=== PATIENT | female | born 1950 | race Caucasian/White ===

== ENCOUNTER 2020-01-10 15:02 | Inpatient (IN) | payer MEDICARE, MEDICAID, SELFPAY ==
[2020-01-10] VITALS (19 sets, daily range): BP systolic 118–171; BP diastolic 41–86; PULSE 62–89; RESP 16–31; TEMP 36.4–37.1; O2SAT 100; BMI 30.7
--- NOTE | ~2020-01-10 | XR_ITS ---
EXAMINATION: XR chest port-a-cath/central EXAM DATE: 01/11/2020 14:50 INDICATION: Central line placement. TECHNIQUE: Portable AP frontal chest x-ray was obtained. Comparison is made to prior examination from 01/11/2020. FINDINGS: There is right IJ venous line. Endotracheal tube tip is 4 centimeters above the giovanni (id eal range is between 2 to 5 cm). There is a nasogastric tube seen with tip collimated off the study, but below the left hemidiaphragm. Sternotomy wires are present without findings to suggest sternal d ehiscence. Aortic valve replacement. No confluent consolidation. There are no sizable pleural effusions. There is no pneumothorax suspe cted. Mild cardiomegaly and pulmonary vascular congestion. The bones and soft tissues are unremark able. There is no significant interval change compared to prior exam. IMPRESSION: 1. Line(s) and tube(s) in position. No postprocedure pneumothorax. 2. Mild thyromegaly, pulmonary vascular congestion. Reviewed, dictated and finalized at location B. [place] COUNTY CLERK
--- NOTE | ~2020-01-10 | XR_ITS ---
EXAMINATION: XR chest 1V portable DATE: 01/11/2020 05:46 INDICATION: Respiratory failure TECHNIQUE: frontal view of the chest was obtained. COMPARISON: Chest radiograph dated 01/10/2020 FINDINGS: Endotracheal tube tip 3.4 cm above the giovanni. Nasogastric tube extends below the left hemidiaphragm with distal tip collimated off the study. Unchanged elevation of right hemidiaphragm. Lungs remain clear with no focal airspace opacities, pleu ral effusion, pulmonary edema or pneumothorax. The cardiomediastinal silhouette is normal. Median aura rnotomy wires and mediastinal surgical clips are seen, likely from prior coronary artery bypass graft ing. Aortic valve repair. Mitral annular calcification. IMPRESSION: 1. No acute cardiopulmonary disease. Reviewed, dictated and finalized at location A. E HOLDER
--- NOTE | ~2020-01-10 | XR_ITS ---
EXAMINATION: XR chest 1V portable DATE: 01/13/2020 06:48 INDICATION: Acute respiratory failure. TECHNIQUE: frontal view of the chest was obtained. COMPARISON: Chest radiograph dated 01/12/2020 FINDINGS: Endotracheal tube tip 2.4 cm above the giovanni. Right internal jugular central venous catheter with di stal tip in the midsuperior vena cava. Nasogastric tube with proximal side-port below the left hemid iaphragm with distal tip collimated off the study. Date of hazy airspace opacities at the right lower lung zone consistent with small pleural effusion n o pulmonary edema, pneumothorax or left-sided pleural effusion. Cardiomegaly. Median sternotomy wires , ostial markers and mediastinal surgical clips consistent with prior coronary artery bypass grafting . Aortic valve replacement. IMPRESSION: 1. Small right pleural effusion with right basilar atelectasis versus less likely pneumonia. 2. Cardiomegaly. Reviewed, dictated and finalized at location A. D NEUROLOGIST IMPRESSION: 1. Small right pleural effusion with right basilar atelectasis versus less like ly pneumonia. 2. Cardiomegaly.
--- NOTE | ~2020-01-10 | XR_ITS ---
EXAMINATION: XR chest 1V portable DATE: 01/12/2020 05:40 INDICATION: Acute respiratory failure. TECHNIQUE: A single frontal view of the chest was obtained. COMPARISON: Chest single view 01/11/2020, chest CT 04/01/2017 FINDINGS: There are airspace opacities at right lung base. No pleural effusion or pneumothorax. Cardi omegaly is noted. There are changes of aortic valve replacement. The endotracheal tube tip is 2.3 cm above the giovanni. A right internal jugular central venous catheter is seen with tip in the superior v moo cava. The nasogastric tube tip is beyond the inferior margin of the radiograph, but at least to t he stomach. IMPRESSION: 1. Unchanged airspace opacities at right lung base, consistent with atelectasis or less likely pneumo anjel. 2. Cardiomegaly. Reviewed, dictated and finalized at location A. [employer] IMPRESSION: 1. Unchanged airspace opacities at right lung base, consistent with atelectasis or less likely pneumonia. 2. Cardiomegaly.
--- NOTE | ~2020-01-10 | XR_ITS ---
EXAMINATION: XR chest 1V portable DATE: 01/15/2020 02:31 INDICATION: Pneumonia TECHNIQUE: Acute respiratory failure COMPARISON: Chest radiograph dated 01/14/2020 FINDINGS: Right internal jugular central venous catheter with distal tip in the caudal superior vena cava. Agai n seen is a dependent predominant gradient of hazy airspace opacities in the bilateral mid to lower l nikki zones appears slightly increased on the right. Pulmonary vascular congestion without marshall pulmon larisa edema. No pneumothorax. Cardiomegaly. Median sternotomy wires, ostial markers and mediastinal roni gical clips consistent with prior coronary artery bypass grafting. Aortic valve replacement. IMPRESSION: 1. Bilaterally posteriorly layering pleural effusions, small to moderate and slightly increased on th e right and small on the left. 2. Associated bibasilar atelectasis and/or pneumonia. 3. Cardiomegaly. Reviewed, dictated and finalized at location A. OR CHEMICAL ENGINEER IMPRESSION: 1. Bilaterally posteriorly layering pleural effusions, small to moderate and sl ightly increased on the right and small on the left. 2. Associated bibasilar atelectasis and/or pneumonia. 3. Cardiomegaly.
--- NOTE | ~2020-01-10 | CT_ITS ---
EXAMINATION: CT brain wo con INDICATION: Patient unresponsive COMPARISON: None TECHNIQUE: Standard unenhanced head CT. The dose-length product (DLP) was 605.33 mGy-cm. The mA was a djusted according to patient size. Iterative reconstruction technique was employed. FINDINGS: There is no acute intraparenchymal hemorrhage. No evidence of mass lesion. No evidence of a cute infarction. Encephalomalacia in the right cerebellum is consistent with prior infarction. An old lacunar infarction is noted in the left thalamus. Chronic bilateral insular infarcts are noted. Ther e is mild periventricular and subcortical hypodensity probably related to small vessel ischemic disea se. There is mild prominence of the sulci and ventricles related to cerebral atrophy. Intracranial ca lcified cerebral atherosclerosis is noted. There are no extra-axial collections. There is no mass eff ect or midline shift. Changes in the globes are likely from ocular lens surgery. There is chronic op acification of the paranasal sinuses. IMPRESSION: 1. Areas of prior infarction without acute intracranial abnormality. 2. Age related findings. 3. Chronic sinusitis. Reviewed, dictated and finalized at location A. MBLER WET WASH
--- NOTE | ~2020-01-10 | XR_ITS ---
EXAMINATION: XR abdomen NG/feed tube insert DATE: 01/10/2020 15:36 INDICATION: Orogastric tube placement. TECHNIQUE: A supine view of the abdomen was obtained. COMPARISON: CT abdomen and pelvis 04/01/2017 FINDINGS: There are no dilated loops of bowel. The nasogastric tube tip is in the stomach with proxim al side port at the gastroesophageal junction. IMPRESSION: 1. Nasogastric tube tip in the stomach with proximal side port at the gastroesophageal junction. Adva ncement 3 cm is recommended. Reviewed, dictated and finalized at location A. PER CLICK STRATEGIST IMPRESSION: 1. Nasogastric tube tip in the stomach with proximal side port at the gastroeso phageal junction. Advancement 3 cm is recommended.
--- NOTE | ~2020-01-10 | XR_ITS ---
EXAMINATION: XR chest 2V DATE: 01/18/2020 09:03 INDICATION: Shortness of breath. TECHNIQUE: Frontal and lateral views of the chest were obtained. COMPARISON: Chest single view 01/15/2020 FINDINGS: There are moderate-sized right and small left pleural effusions. There are airspace opaciti es at the lung bases. No pneumothorax. Cardiomegaly is noted. There are changes of heart valve replac ement. A right internal jugular central venous catheter is seen with tip in the superior vena cava. IMPRESSION: 1. Stable moderate-sized right and small left pleural effusions. 2. Stable airspace opacities at the lung bases, likely atelectasis. 3. Cardiomegaly. Reviewed, dictated and finalized at location A. IST ASSISTANT
--- NOTE | ~2020-01-10 | XR_ITS ---
EXAMINATION: XR chest ET placement INDICATION: Respiratory failure TECHNIQUE: Portable AP chest at 1527 hours COMPARISON: 07/10/2019 FINDINGS: An endotracheal tube ends with its tip at the origin of the right mainstem bronchus approxi mately 6 mm from the giovanni. The nasogastric tube is followed as far as the stomach. Its tip is beyon d the inferior margin of the radiograph. The proximal side port is at the gastroesophageal junction. Cardiomegaly is noted. The lungs are free of acute opacities. There is mild chronic elevation of the right hemidiaphragm. Changes of cardiac valve surgery are noted. IMPRESSION: 1. Endotracheal tube approximately 6 cm from the giovanni at the origin of the right mainstem bronchus. 2. Nasogastric tube in the stomach with the proximal side port at the gastroesophageal junction. 3. Cardiomegaly. Reviewed, dictated and finalized at location A. CAST ANALYST IMPRESSION: 1. Endotracheal tube approximately 6 cm from the giovanni at the origin of the ri ght mainstem bronchus. 2. Nasogastric tube in the stomach with the proximal side port at the gastroeso phageal junction. 3. Cardiomegaly.
--- NOTE | ~2020-01-10 | XR_ITS ---
EXAMINATION: XR barium swallow modified EXAM DATE: 01/16/2020 09:51 INDICATION: Recent intubation. Dysphagia. TECHNIQUE: Modified barium esophagram was performed by myself to administered fluoroscopy, in conjun ction with speech pathologist who administered barium in varying consistencies as per speech patholog ist documentation. This was recorded on tape. The DAP for this procedure was 0.9 Gycm2. FINDINGS: Oral stage: Adequate function. Laryngeal penetration: Demonstrated mostly thin liquids. Aspiration: Demonstrated. Laryngeal sensitivity: Present. IMPRESSION: Aspiration demonstrated; Please refer to speech pathologist findings and specific feedin g recommendations. Reviewed, dictated and finalized at location A. ICAL SYSTEMS ANALYST IMPRESSION: Aspiration demonstrated; Please refer to speech pathologist findin gs and specific feeding recommendations.
--- NOTE | ~2020-01-10 | XR_ITS ---
EXAMINATION: XR chest 1V portable DATE: 01/14/2020 07:26 INDICATION: Acute respiratory failure TECHNIQUE: frontal view of the chest was obtained. COMPARISON: Chest radiograph dated 01/13/2020 FINDINGS: Endotracheal tube tip 2.7 cm above the giovanni. Right internal jugular central venous catheter with di stal tip at the caudal superior vena cava. Nasogastric tube extends below the left hemidiaphragm wit h distal tip collimated off the study. Increasing, now bilateral gradients of hazy airspace opacities in the mid to lower lung zones consist ent with enlarging small bilateral posteriorly layering pleural effusions and associated basilar atel ectasis and/or pneumonia. No pneumothorax. Cardiomegaly. Median sternotomy wires, ostial markers and mediastinal surgical clips consistent with prior coronary artery bypass grafting. Aortic valve replac ement. IMPRESSION: 1. Enlarging small bilateral pleural effusions with associated basilar atelectasis and/or pneumonia. 2. Cardiomegaly. Reviewed, dictated and finalized at location A. DENCY PROGRAM COORDINATOR IMPRESSION: 1. Enlarging small bilateral pleural effusions with associated basilar atelecta sis and/or pneumonia. 2. Cardiomegaly.
--- NOTE | 2020-01-10 15:12 | ED.AMS ---
HPI - Altered Mental Status General Chief Complaint: Altered Mental Status Stated Complaint: UNRESPONSIVE Time Seen by Provider: 01/10/20 15:02 Source: family and RN notes reviewed Mode of arrival: wheelchair Limitations: altered mental status History of Present Illness HPI narrative: A 69 y/o female presents to the ED after becoming unresponsive just STEWARD/STEWARDESS NIGHT. Per reports that when he got home the pt was having SOB and was confused, so he was bring the pt in to be evaluated when she became unresponsive on the car ride over. The notes that the pt has NIDDM and has been off of her medication for awhile because she is getting ready for dialysis. complaint: decreased responsiveness (unresponsive) Onset (ago): minute(s) Timing confirmed by: spouse Consistency of symptoms: constant Context: change in medication (has been off of her NIDDM medication) Associated symptoms: shortness of breath and other (confusion) Related Data Home Medications Medication Instructions Recorded Confirmed ascorbic acid (vitamin C) 500 mg mg PO 11/02/19 11/02/19 capsule losartan 25 mg tablet 25 mg PO DAILY 11/02/19 11/02/19 multivitamin 1 cap PO DAILY 11/02/19 11/02/19 tamsulosin 0.4 mg capsule 0.4 mg PO DAILY 11/02/19 11/02/19 Allergies Allergy/AdvReac Type Severity Reaction Status Date / Time Contrast Media Allergy Severe Loss of Uncoded 11/02/19 13:12 Consciousness Review of Systems Review of Systems: Narrative: All information was provided by the . ROS unobtainable: unobtainable due to endotracheal tube, unobtainable due to mental condition and unobtainable due to mental status Respiratory: Respiratory: Reports dyspnea Neurologic: Reports confusion and Reports other (unresponsive) FORMERLY [facility], [facility] Past Medical History Medical History Anemia Arthritis Asthma COPD (chronic obstructive pulmonary disease) CVA (cerebral vascular accident) Diabetes mellitus HLD (hyperlipidemia) HTN (hypertension) Myocardial infarction Pneumonia Shoulder fracture, left TIA (transient ischemic attack) Surgical History Surgical History H/O aortic valve replacement with porcine valve H/O bilateral cataract extraction History of bowel resection Family History Family History Mother Diabetes mellitus Family history of diabetes mellitus in first degree relative Patient's mother is Sibling Family history of cardiovascular disease Family history of liver disease Patient's sister is in good health Family history of heart disease in male family member before age 55 Patient's brother is Diabetes mellitus Acute myocardial infarction Family history of kidney disease Father Family history of cardiovascular disease Family history of heart disease in male family member before age 55 Patient's father is Acute myocardial infarction, Onset Age: 56 Social History Social History Smoking status: Never smoker Alcohol intake: never Comments PCP: Dr. Negro. Exam Narrative: Exam Narrative: GENERAL: Ill-appearing, only responsive to nasal trumpet and chest compression, obese. HEAD: Normocephalic, atraumatic. EYES: PERRL and EOMI. ENT: Mucous membranes moist. CHEST: Agonal breathing with clear lung sounds, requiring bagging. HEART: Regular rate and rhythm. Normal peripheral pulses. ABDOMEN: Soft, nontender, nondistended EXTREMITIES: Normal range of motion. No edema. Right upper extremity dialysis shunt. SKIN: Warm, dry, no rash. NEURO: GCS 8, E2 V1 M5. No focal paralysis. Course Consultations Consultation #1: Discussed case with Dr. Mcguire (Machining And Assembly Supervisor). Accepts the pt to the ICU. Request Vanc, Zosyn, and a head CT. Family reports patient did not receive the flu shot. Date: 01/10/20 Time: 16:37 Cons
--- NOTE | 2020-01-10 15:30 | PC.NURSE ---
[place] placed per order from Dr Hansen, 16FR.
[2020-01-10 15:35] LABS: Basophils Absolute Auto 0.1 K/mm3 (0.0-0.1); Basophils Percent Auto 0.6 % (0.2-1.2); Eosinophils Absolute Auto 0.9 K/mm3 (0-0.3); Eosinophils Percent Auto 5.3 % (0-4.4); Hematocrit 31.9 % (37.0-47.0); Hemoglobin 9.5 g/dL (12.0-15.0); Immature Granulocyte Absolute 0.27 K/mm3 (0.00-0.031); Immature Granulocyte Percent A 1.6 % (0-0.5); Lymphocytes Absolute Auto 5.29 K/mm3 (0.9-3.2); Lymphocytes Percent Auto 31.1 % (18.3-44.2); Mean Corpuscular HGB Conc 29.8 g/dl (32-36); Mean Corpuscular Hemoglobin 29.3 pg (26-34); Mean Corpuscular Volume 98.5 fl (80-100); Mean Platelet Volume 11.4 fl (7.4-10.4); Monocytes Absolute Auto 0.8 K/mm3 (0.1-0.6); Monocytes Percent Auto 4.4 % (2.6-8.5); Neutrophils Absolute Auto 9.7 K/mm3 (1.3-6.7); Platelet Count Result 286 k/mm3 (150-375); Red Blood Count 3.24 M/mm3 (4.2-5.4); Red Cell Distribution Width 14.8 % (11.5-14.5)
[2020-01-10 15:42] LABS: Alveolar/Arterial O2 Gradient 99.7 mmHg; Base Excess ABG -13.1 mEq/l (+/-2.0); Fractional Inspired Oxygen 50 %; HCO3 ABG 15.1 mEq/l (22.0-26.0); Oxygen Content ABG 13.9 %vol (16.0-22.0); Oxygen Saturation ABG 99.1 % (95.0-100.0); Oxyhemoglobin 96.5 % THb (90.0-100.0); PO2 ABG 207.3 mmHg (80.0-100.0); PO2 FiO2 Ratio Arterial Blood 4.15 %; Total Hemoglobin 9.9 g/dL (12.0-18.0)
[2020-01-10 15:43] LABS: Hypochromasia 1+ (NORMAL); Ovalocytes 1+ (NORMAL); Platelet Estimate Adequate (Adequate)
[2020-01-10 15:44] LABS: Device VENTILATOR; Site Drawn LEFT BRACHIAL; pH ABG 7.152 (7.350-7.450)
[2020-01-10 15:45] LABS: Arterial Blood Gas Vent Mode CMV; Arterial Blood Gas Ventilator rate 16 /MIN
[2020-01-10 15:45] LABS: Prothrombin Time 13.3 Seconds (11.1-14.7)
[2020-01-10 15:46] LABS: Lactic Acid Reflex 3.6 mmol/L (0.7-2.1); Partial Thromboplastin Time 25.8 SECONDS (22.3-36.8)
[2020-01-10 15:46] LABS: Arterial Blood Gas PEEP 8 cmH2O; Arterial Blood Gas Pressure Support 0 cmH2O; Arterial Blood Gas Tidal Volume 400 ml
--- NOTE | 2020-01-10 15:46 | PC.NURSE ---
1511: NS initiated at 999ml/hr 1513: 30 Etomidate and 100 Succ given per verbal order from Dr Hansen 1516: Respiratory suctioning patient, patient vomiting 1517: Patient intubated 7.5 tube, 25 at the lip, positive bilat breath sounds and CO2 detector color change 1520: OG placed at 55 at the lip, suction continued, brown fluid 1537: 25mcg fentanyl and 2mg versed given per verbal order from Dr Hansen, patient gagging on tube
[2020-01-10 15:48] LABS: Alanine Aminotransferase 22 U/L (4-35); Albumin Level 4.2 g/dL (3.5-5.1); Alkaline Phosphatase 159 U/L (38-126); Aspartate Amino Transferase 26 U/L (14-36); Bilirubin,Total 0.4 mg/dL (0.2-1.3); Blood Urea Nitrogen 68 mg/dL (7-17); Calcium 8.2 mg/dL (8.4-10.2); Carbon Dioxide 14 mmol/L (22-30); Chloride 110 mmol/L (98-107); Estimated CRCL calculation 12 ml/min; Estimated Glomerular Filt Rate 11; Glucose 266 mg/dL (65-105); Sodium 141 mmol/L (137-145)
[2020-01-10 16:00] LABS: Troponin I 0.017 ng/mL (0.000-0.034)
[2020-01-10] MEDS: MIDAZOLAM HCL 50 MG in DEXTROSE 5% 90 ML IV CONT ×2 (16:00→19:00)
[2020-01-10 16:14] LABS: Add Urine Microscopic? YES; Appearance Urine Clear (Clear); Bilirubin Urine Negative (Negative); Blood Urine 1+ (Negative); Color Urine Yellow (Yellow); Glucose Urine UA 1+ mg/dL (Negative); Ketones Urine Negative (Negative); Leukocyte Esterase Ur Trace LEU/UL (Negative); Mucus Urine Rare /lpf; Nitrate Urine Negative (Negative); Protein Urine Negative (Negative); Specific Grav Ur 1.012 (1.001-1.035); Squamous Epithelial Cell Urine Rare /hpf (Few); Urobilinogen Urine Negative mg/dL (<2.0)
[2020-01-10] MEDS: SODIUM CHLORIDE 0.9% IV 1,000 ML 999 ML IV CONT (16:32)
--- NOTE | 2020-01-10 16:40 | PC.NURSE ---
Patient given medications per verbal order from Dr Hansen prior to CT. Patient transported with Respiratory and RN.
[2020-01-10] MEDS: MIDAZOLAM HCL 2 MG/2 ML VIAL (16:44)
[2020-01-10 18:33] LABS: Reflex Lactic Acid Yes or No Add Lactic
[2020-01-10] MEDS: SODIUM CHLORIDE 0.9% IV 1,000 ML 125 ML IV CONT (18:50)
--- NOTE | 2020-01-10 18:56 | PM.IMHP ---
H&P: HPI History of Present Illness Chief complaint: Respiratory failure/Influenza/CKD Narrative: Date and Time of Service of History & Physical: January 10, 2020 at 6:40 p.m.. Date and Time of Admission Order: January 10, 2020 at 4:51 p.m. Chief Complaint: Shortness of breath, unresponsive. History of Present Illness: Martha Reid is a 69 year old female with diabetes, chronic kidney disease in process of moving towards hemodialysis, hypertension, coronary disease, hyperlipidemia, COPD and history of CVA who presented to the emergency room. Patient is intubated with no family present. She is able to answer some simple yes/no questions. Additional information from electronic record. Patient reports she was feeling short of breath with cough today. No fever. No chest pain. Per record, noted patient to be short of breath and confused when he arrived home. He was bringing patient in to be evaluated when she became unresponsive on the car ride over. Patient recently has been taken off diabetic medication in process of getting ready for dialysis. Due to unresponsiveness, christiana najera was called. Per emergency room physician, patient received 1 chest compression and grabbed person performing CPR. She was unable to speak. Due to her respiratory status, she was intubated in the emergency room. Influenza screen positive. She is now admitted to the intensive care unit for further evaluation and treatment. Review of Systems Review of Systems: Narrative: Limited due to intubation. Constitutional: Constitutional: Denies fever(s) Cardiovascular: Cardiovascular: Denies chest pain Respiratory: Respiratory: Reports cough and Reports dyspnea Gastrointestinal: Gastrointestinal: Denies abdominal pain PMF Past Medical History Medical History (Updated 01/10/20 @ 19:21 by Leonor Jha MD) Anemia Arthritis Asthma COPD (chronic obstructive pulmonary disease) CVA (cerebral vascular accident) Diabetes mellitus HLD (hyperlipidemia) HTN (hypertension) Myocardial infarction Pneumonia Shoulder fracture, left Surgically constructed arteriovenous fistula TIA (transient ischemic attack) Surgical History Surgical History H/O aortic valve replacement with porcine valve H/O bilateral cataract extraction History of bowel resection Family History Family History Mother Diabetes mellitus Family history of diabetes mellitus in first degree relative Patient's mother is Sibling Family history of cardiovascular disease Family history of liver disease Patient's sister is in good health Family history of heart disease in male family member before age 55 Patient's brother is Diabetes mellitus Acute myocardial infarction Family history of kidney disease Father Family history of cardiovascular disease Family history of heart disease in male family member before age 55 Patient's father is Acute myocardial infarction, Onset Age: 56 Social History Social History Social History: Limited information available due to her condition. Patient is full code. She is . Smoking status: Never smoker Alcohol intake: never Living arrangements: with family Meds Home Medications and Allergies Home Medications Medication Instructions Recorded Confirmed Type atorvastatin 20 mg tablet 20 mg PO DAILY #90 tablet 10/03/19 11/02/19 Rx mometasone-formoterol HFA 100 2 puff INHALATION Q12H #8.8 gm 10/03/19 11/02/19 Rx mcg-5 mcg/actuation aerosol inhaler furosemide 40 mg tablet 40 mg PO QAM #90 tablet 10/20/19 11/02/19 Rx carvedilol 12.5 mg tablet 12.5 mg PO Q12H #180 tablet 10/24/19 11/02/19 Rx trazodone 50 mg tablet 50 mg PO .AT HS #90 tablet 10/24/19 11/02/19 Rx ascorbic acid (vitamin C) 500
[2020-01-10 19:10] LABS: Lactic Acid 1.6 mmol/L (0.7-2.1)
--- NOTE | 2020-01-10 19:52 | ADMGEN ---
This patient, Martha Reid, was admitted to Intensive Care Unit-2. Patient/family oriented to hospital policies and general routines including ID bracelet, bed and alarms, visiting hours, pain management, procedures, bathroom and other care routines, personal items, smoking policy, room service/diet, and visiting hours. Valuables list has been completed. Information on how to activate the Rapid Response Team has been discussed. Patient/Family are encouraged to report perceived risks to care and to ask questions if they do not understand what they are told or what they should do.
[2020-01-10] MEDS: HEPARIN SODIUM 5,000 UNITS/ML VIAL 5000 UNITS SUB-Q (20:17)
[2020-01-10] MEDS: PANTOPRAZOLE SODIUM IV 40 MG VIAL IV PUSH (20:17)
[2020-01-10] MEDS: ALBUTEROL SULFATE NEB 2.5 MG/0.5 ML INH 5 MG INHALATION (20:22)
[2020-01-10] MEDS: IPRATROPIUM BR 0.02% INH SOLN 0.5 MG/2.5 ML VIAL INHALATION (20:22)
[2020-01-11] VITALS (27 sets, daily range): BP systolic 83–113; BP diastolic 39–99; PULSE 61–81; RESP 14–18; TEMP 36.6–37.4; O2SAT 97–100; BMI 32.8
[2020-01-11] MEDS: SODIUM CHLORIDE 0.9% IV 1,000 ML 125 ML IV CONT ×2 (02:08→08:15)
[2020-01-11] MEDS: IPRATROPIUM BR 0.02% INH SOLN 0.5 MG/2.5 ML VIAL INHALATION ×4 (02:08→21:17)
[2020-01-11] MEDS: ALBUTEROL SULFATE NEB 2.5 MG/0.5 ML INH 5 MG INHALATION ×4 (02:08→21:16)
[2020-01-11 04:29] LABS: Alveolar/Arterial O2 Gradient 97.9 mmHg; Base Excess ABG -11.3 mEq/l (+/-2.0); Carboxyhemoglobin 0.3 % THb (0-2.0); Fractional Inspired Oxygen 40 %; HCO3 ABG 14.3 mEq/l (22.0-26.0); Oxygen Content ABG 11.5 %vol (16.0-22.0); Oxygen Saturation ABG 98.7 % (95.0-100.0); Oxyhemoglobin 96.6 % THb (90.0-100.0); PCO2 ABG 31.2 mmHg (35.0-45.0); PO2 ABG 151.4 mmHg (80.0-100.0); PO2 FiO2 Ratio Arterial Blood 3.78 %; Reduced Hemoglobin 3.1 %THb (0-5.0); Total Hemoglobin 8.2 g/dL (12.0-18.0)
[2020-01-11 04:35] LABS: Device VENTILATOR; Site Drawn LEFT BRACHIAL
[2020-01-11 04:36] LABS: Arterial Blood Gas PEEP 8 cmH2O; Arterial Blood Gas Tidal Volume 400 ml; Arterial Blood Gas Vent Mode CMV; Arterial Blood Gas Ventilator rate 16 /MIN
[2020-01-11 05:00] LABS: Basophils Absolute Auto 0.1 K/mm3 (0.0-0.1); Basophils Percent Auto 0.7 % (0.2-1.2); Eosinophils Absolute Auto 0.7 K/mm3 (0-0.3); Eosinophils Percent Auto 6.2 % (0-4.4); Hematocrit 27.2 % (37.0-47.0); Hemoglobin 8.2 g/dL (12.0-15.0); Immature Granulocyte Absolute 0.03 K/mm3 (0.00-0.031); Immature Granulocyte Percent A 0.3 % (0-0.5); Lymphocytes Absolute Auto 1.95 K/mm3 (0.9-3.2); Lymphocytes Percent Auto 17.2 % (18.3-44.2); Mean Corpuscular HGB Conc 30.1 g/dl (32-36); Mean Corpuscular Hemoglobin 29.3 pg (26-34); Mean Corpuscular Volume 97.1 fl (80-100); Mean Platelet Volume 11.1 fl (7.4-10.4); Monocytes Absolute Auto 0.8 K/mm3 (0.1-0.6); Neutrophils Absolute Auto 7.8 K/mm3 (1.3-6.7); Neutrophils Percent Auto 68.6 % (45.5-73.1); Platelet Count Result 217 k/mm3 (150-375); Red Cell Distribution Width 14.7 % (11.5-14.5); White Blood Count 11.3 K/mm3 (4.5-10.0)
[2020-01-11 05:24] LABS: Alanine Aminotransferase 19 U/L (4-35); Alkaline Phosphatase 114 U/L (38-126); Aspartate Amino Transferase 20 U/L (14-36); Bilirubin,Total 0.4 mg/dL (0.2-1.3); Blood Urea Nitrogen 60 mg/dL (7-17); Calcium 7.3 mg/dL (8.4-10.2); Carbon Dioxide 16 mmol/L (22-30); Chloride 116 mmol/L (98-107); Estimated CRCL calculation 13 ml/min; Estimated Glomerular Filt Rate 12; Glucose 51 mg/dL (65-105); Magnesium 1.3 mg/dL (1.6-2.3); Potassium 3.6 mmol/L (3.4-5.0); Sodium 144 mmol/L (137-145)
[2020-01-11 05:25] LABS: Hemoglobin A1C 6.2 % (<5.7)
[2020-01-11 05:30] LABS: Glucose Point of Care 49 (65-105)
[2020-01-11] MEDS: DEXTROSE 50% 25 GM/50 ML SYRINGE IV PUSH (05:33)
[2020-01-11 06:04] LABS: Glucose Point of Care 148 (65-105)
[2020-01-11 08:09] LABS: Glucose Point of Care 225 (65-105)
[2020-01-11] MEDS: HEPARIN SODIUM 5,000 UNITS/ML VIAL 5000 UNITS SUB-Q ×2 (08:10→19:53)
[2020-01-11] MEDS: PANTOPRAZOLE SODIUM IV 40 MG VIAL IV PUSH (08:11)
[2020-01-11] MEDS: MIDAZOLAM HCL 50 MG in DEXTROSE 5% 90 ML IV CONT (08:19)
[2020-01-11 08:31] LABS: Glucose Point of Care 87 (65-105)
--- NOTE | 2020-01-11 08:47 | PM.IMPN ---
Progress Note: A&P Assessment and Plan (1) Acute respiratory failure: Qualifiers: Respiratory failure complication: hypoxia Qualified Code(s): J96.01 - Acute respiratory failure with hypoxia Code(s): J96.00 - Acute respiratory failure, unspecified whether with hypoxia or hypercapnia Status: Acute Assessment and Plan: Chest x-ray with no acute opacities. Result of influenza A. Remains sedated on ventilator. Ventilator management box press operator. Continue nebulizer treatments and IV antibiotics. Continue to monitor. (2) Severe sepsis: Code(s): A41.9 - Sepsis, unspecified organism; R65.20 - Severe sepsis without septic shock Status: Acute Assessment and Plan: Criteria met on admission. Blood cultures negative thus far. Urine culture and MRSA culture pending. Antibiotics adjusted to IV cefepime and vancomycin. Blood pressure reviewed on 01/11/2020 and presently stable. Continue IV fluids. Will monitor. (3) Influenza A: Code(s): J10.1 - Influenza due to other identified influenza virus with other respiratory manifestations Status: Acute Assessment and Plan: Positive screen in the emergency room. Will continue Tamiflu to complete 5 days treatment. (4) Diabetes mellitus with ESRD (end-stage renal disease): Code(s): E11.22 - Type 2 diabetes mellitus with diabetic chronic kidney disease; N18.6 - End stage renal disease Status: Acute Assessment and Plan: Hemoglobin A1c 7.3 in February 2019. New hemoglobin A1c 6.2. Did have lower glucose this morning. Home oral medications on hold. Sliding scale insulin is available if needed. Will check new hemoglobin A1c while here. Hold home oral medications. Sliding scale insulin available as needed. IV fluids with sodium bicarb in dextrose. Will continue to monitor. (5) Hypomagnesemia: Code(s): E83.42 - Hypomagnesemia Status: Acute Assessment and Plan: Magnesium 1.3 today with IV replacement given. Will continue to monitor and replace as needed. (6) CKD (chronic kidney disease), stage V: Code(s): N18.5 - Chronic kidney disease, stage 5 Status: Acute Assessment and Plan: Creatinine 4.20. AV fistula maturing in right arm with plan for hemodialysis. Nephrology consulted from the emergency room and appreciate input. Creatinine better at 3.80 today. Will monitor. (7) Essential hypertension: Code(s): I10 - Essential (primary) hypertension Status: Acute Assessment and Plan: Blood pressure reviewed on 01/11/2020 and now stable. Will continue ofelia hold furosemide, Coreg and losartan. Will monitor. (8) Chronic GERD: Code(s): K21.9 - Gastro-esophageal reflux disease without esophagitis Status: Acute Assessment and Plan: Will give IV Protonix. (9) Chronic systolic heart failure: Code(s): I50.22 - Chronic systolic (congestive) heart failure Status: Acute Assessment and Plan: Will continue to hold Lasix, Coreg and llosartan. Will monitor. (10) Coronary artery disease involving [place] coronary artery of [place] heart: Qualifiers: Associated angina: without angina Qualified Code(s): I25.10 - Atherosclerotic heart disease of [place] coronary artery without angina pectoris Code(s): I25.10 - Atherosclerotic heart disease of [place] coronary artery without angina pectoris Status: Acute Assessment and Plan: No acute issue. Will hold atorvastatin, Coreg. Will monitor. (11) DVT prophylaxis: Code(s): Z29.9 - Encounter for prophylactic measures, unspecified Status: Acute Assessment and Plan: Heparin subcutaneously. Time Spent With Patient Time with patient: 15 - 25 minutes Subjective Date/time seen: 01/11/20 08:47 Interval history: Date of Service: 01/11/2020. Admitted with acute respiratory failure, severe sepsis, influenza A. Remains sedated on venilator but opens eye
--- NOTE | 2020-01-11 09:43 | WPDCNINT ---
Assessment and Plan Assessment and plan (1) Acute respiratory failure: Qualifiers: Respiratory failure complication: hypoxia Qualified Code(s): J96.01 - Acute respiratory failure with hypoxia Code(s): J96.00 - Acute respiratory failure, unspecified whether with hypoxia or hypercapnia Status: Acute Assessment and Plan: patient presented with acute respiratory failure: possible COPD exacerbation which could have been brought on by influenza A. - chest x-ray otherwise is clear - continue bronchodilators, no wheezing noted, hold steroids for now - continue cefepime and vancomycin, will deescalate if blood cultures are negative (2) Severe sepsis: Code(s): A41.9 - Sepsis, unspecified organism; R65.20 - Severe sepsis without septic shock Status: Acute Assessment and Plan: source unknown - continue antibiotics as above - cultures have been obtained and pending - will give a bolus of IV fluids - started patient on infusion (3) Influenza A: Code(s): J10.1 - Influenza due to other identified influenza virus with other respiratory manifestations Status: Acute Assessment and Plan: patient with positive influenza A, started patient on Tamiflu (4) Diabetes mellitus with ESRD (end-stage renal disease): Code(s): E11.22 - Type 2 diabetes mellitus with diabetic chronic kidney disease; N18.6 - End stage renal disease Status: Acute Assessment and Plan: blood sugars have been stable, continue sliding scale and Accu-Cheks - Hemoglobin A1c 7.3 in February 2019. Will check new hemoglobin A1c (5) CKD (chronic kidney disease), stage V: Code(s): N18.5 - Chronic kidney disease, stage 5 Status: Acute Assessment and Plan: patient has an AV fistula in the right arm which is maturing. - Nephrology has been consulted, await their input (6) Chronic GERD: Code(s): K21.9 - Gastro-esophageal reflux disease without esophagitis Status: Acute Assessment and Plan: continue IV PPI (7) DVT prophylaxis: Code(s): Z29.9 - Encounter for prophylactic measures, unspecified Status: Acute Assessment and Plan: heparin subcu Additional Plan discussed with patient's and updated him with her condition and plan of care. I answered all questions. Code status: Full code Critical care time spent: 39 minutes Due to a high probability of clinically significant, life threatening deterioration, the patient required my highest level of preparedness to intervene emergently and I personally spent this critical care time directly and personally managing the patient. This critical care time included obtaining a history; examining the patient; pulse oximetry; ordering and review of studies; arranging urgent treatment with development of a management plan; evaluation of patient's response to treatment; frequent reassessment; and discussions with other providers. It was exclusive of separately billable procedures and treating other patients and teaching time. Please see Assessment and Plan section and the rest of the note for further information on patient assessment and treatment Enrichment Assistant Consult Note Consult date: 2 Time Seen: 06:12 Reason for consult: Acute respiratory failure, [place], Influenza A HPI: Martha Reid is a 69 year old female with PMH of anemia, asthma, COPD, CVA, HLD, DM, essential HTN, PA, CKD presented to the ED with SOB, confusion and became unresponsiveness in the car and had a brief cardiac arrest in the ED requiring compressions and after 1-2 compressons pt woke up and held the compressors hand. Pt was intubated on 01/10/2020 in the ED. Pt was tested positive for influenza A. Pt did not take her flu shot this year. Elevated WBC, elevated creatinine. Pt was started on Abx and transferred to ICU for further management Pt seen and examined this morning. Remains intubated on CMV 40% FiO2. sedated with Fe
--- NOTE | 2020-01-11 11:46 | PCDIET ---
ICU Rounding Note: Pt current nutrition is NPO. Nutrition recommendation: Osmolite 1.0 goal rate of 72 ml/hour w/ 90 ml FWF Q6H. Initiate at 35 ml/hour for 4-6 hours and increase rate by 10 mL Q4H as tolerated. TF to provide 1679 kcals and 70 g protein to meet 100% of pt needs. Last recorded weight is 84.1 kg. Bowel Motility:BS+ Labs Reviewed: PO4 5.0, mg 1.3, A1C 6.2, Glucose 266-51, BUN 60, Cr 3.8 GFR 12 Meds Noted:Novolog, Na bicarab, Protonix Additional Notes: Pt intubated, alert and able to follow commands. Will initiate TF, potentially extubating tomorrow. Following daily in ICU rounds. Assessing/reassessing Wednesday/Wednesday, daily in ICU rounds.
[2020-01-11] MEDS: SODIUM BICARBONATE 8.4% 150 MEQ in DEXTROSE 5% 1,000 ML 950 ML 75 MEQ IV CONT (12:30)
[2020-01-11] MEDS: MAGNESIUM SULF 2 GM/WATER 50ML 2 GM/50 ML BAG IVPB (13:34)
--- NOTE | 2020-01-11 14:33 | WPDPROCEDUR ---
Procedures Central Line Placement: Right IJ: Discussed w/ patient and/or surrogate, the non-emergent placement of a central venous catheter, including its clinical necessity/indication & associated potential risks & complications.: Yes The patient and/or surrogate understand(s) and acknowledge(s) the need to proceed with central venous catheter insertion as an important element of the patient's clinical management.: Yes Emergently Placed - (Given emergent patient conditions, temporal constraints may not have permitted and aforementioned informed consent.): No Central Line Date: 01/11/20 Central Line Time: 14:18 Pre-procedural Time-Out was completed immediately before starting the procedure and confirmed: Patient Identification, Site, Procedure, Patient Position and the Availability of Requisite Equipment.: Yes Patient Position: supine Patient placed on monitor/pulse ox: Yes Provider Prep: mask, sterile gown, sterile gloves, Max. sterile barrier precautions and cap Central line prep: Chlorhexidine scrub and sterile full body sheet applied Local anesthesia used: lidocaine 1% Amount of anesthesia used (ml): 4 Ultrasound used for placement: Yes Central line lumen inserted: triple [place]: 16 Length (cm): 16 Depth of Insertion (cm): 16 Post procedure: sutured in place, good blood return, all ports aspirated, flushed, capped, tegaderm, hemostatic disc, antimicrobial disc and aseptic technique maintained throughout procedure Post procedure x-ray: tip of catheter in good position and no pneumothorax seen Patient tolerated procedure: well Complications: none
[2020-01-11] MEDS: OSELTAMIVIR PHOSPHATE ORAL SUSP 30 MG/5 ML SYRINGE PO (15:47)
[2020-01-11] MEDS: hetaSTARCH 6%/NACL 500 ML 250 ML IV CONT (15:47)
--- NOTE | 2020-01-11 17:42 | PM.CNNEP ---
Assessment and Plan Assessment and plan (1) CKD (chronic kidney disease), stage V: Code(s): N18.5 - Chronic kidney disease, stage 5 Status: Acute (2) Severe sepsis: Code(s): A41.9 - Sepsis, unspecified organism; R65.20 - Severe sepsis without septic shock Status: Acute (3) Acute respiratory failure: Qualifiers: Respiratory failure complication: hypoxia Qualified Code(s): J96.01 - Acute respiratory failure with hypoxia Code(s): J96.00 - Acute respiratory failure, unspecified whether with hypoxia or hypercapnia Status: Acute (4) Essential hypertension: Code(s): I10 - Essential (primary) hypertension Status: Acute (5) Diabetes: Code(s): E11.9 - Type 2 diabetes mellitus without complications Status: Acute Assessment and Plan: . Additional Plan Martha has chronic kidney disease stage 5 but is not currently on dialysis. Unfortunately, she currently has acute respiratory failure precipitated by a brief cardiac arrest as already noted. There is a possibility that this insult may have pushed her kidneys to the point of requiring renal replacement therapy /dialysis sooner than later. Currently, despite her advanced kidney disease, she has no critical electrolyte abnormalities although she does have a metabolic acidosis but as far as I am aware, no symptoms of uremia. However given her recent diagnosis of than for an is a, I would not be surprised if this put she has her kidneys harder than not and she may require renal replacement therapy / dialysis on this hospitalization. As already mentioned, she does have a right upper arm access in place that appears to be still functional so theoretically we could use this for renal replacement therapy /dialysis if it if things deteriorate to the point of needing dialysis as already mentioned above. I will continue follow patient with you while she remains hospitalized to make further recommendations during hospital course Thank you for allowing me to participte iin the care this patient. History of Present Illness Reason for Consult Consult date: 01/11/20 Reason for consult: chronic renal failure Chief Complaint Chief complaint: Respiratory failure/Influenza/CKD History of Present Illness Narrative: All of the information I obtained is from review of the electronic medical record as the patient is unable to provide me with any history as she is currently intubated and sedated. The patient is 69 year old female with an extensive past medical history as outlined below who presented to the [facility] ED with shortness of breath and confusion. Apparently, she became unresponsive and had a cardiac arrest in the ER requiring compressions. However, after 1 - 2 compression, the patient woke up pt woke up; she was intubated and placed on mechanical ventilation. Further evaluation in the ER demonstrated patient to be positive for influenza A. She was also noted to have an elevated WBC as well. Given the concern for sepsis, she was started on IV antibiotics after appropriate cultures were obtained and transferred to ICU for further management Renal consultation was requested due to her advanced chronic kidney disease. The patient is well known to me as I follow her in clinic for CKD management. She has fairly advanced kidney disease secondary diabetic nephropathy. In anticipation of her of ventral need for renal replacement therapy /dialysis, she was referred for education regarding her dialysis options and side to pursue hemodialysis if and when that time would be need for renal replacement therapy. In anticipation of this, I referred her to surgery for access placement and she had a right upper arm graft placed several months ago. However, since clinically she was stable, had no critical electrolyte abnormalities, no symptoms of uremia, and otherwise felt reasonably well I decided to hold dialysis at this ti
[2020-01-11 23:48] LABS: Glucose Point of Care 83 (65-105)
[2020-01-12] VITALS (29 sets, daily range): BP systolic 107–147; BP diastolic 45–54; PULSE 65–98; RESP 10–21; TEMP 36.6–37.6; O2SAT 95–100; BMI 31.8
[2020-01-12] MEDS: NOREPINEPHRINE 8 MG/D5W 250 ML 8 MG/250 ML BAG 7.5 MG IV CONT (00:57)
[2020-01-12] MEDS: IPRATROPIUM BR 0.02% INH SOLN 0.5 MG/2.5 ML VIAL INHALATION ×4 (02:24→20:42)
[2020-01-12] MEDS: ALBUTEROL SULFATE NEB 2.5 MG/0.5 ML INH 5 MG INHALATION ×4 (02:24→20:42)
[2020-01-12 04:44] LABS: Alveolar/Arterial O2 Gradient 88.4 mmHg; Base Excess ABG -6.7 mEq/l (+/-2.0); Carboxyhemoglobin 0.3 % THb (0-2.0); Fractional Inspired Oxygen 30 %; HCO3 ABG 17.2 mEq/l (22.0-26.0); Methemoglobin ABG 0.3 %THb (0-1.5); Oxygen Content ABG 13.5 %vol (16.0-22.0); Oxygen Saturation ABG 97.1 % (95.0-100.0); PO2 ABG 91.4 mmHg (80.0-100.0); PO2 FiO2 Ratio Arterial Blood 3.05 %; Reduced Hemoglobin 4.4 %THb (0-5.0); pH ABG 7.392 (7.350-7.450)
[2020-01-12 04:45] LABS: Device VENTILATOR; Modified Allen's Test Pass; Site Drawn LEFT RADIAL
[2020-01-12 04:46] LABS: Arterial Blood Gas PEEP 8 cmH2O; Arterial Blood Gas Tidal Volume 400 ml; Arterial Blood Gas Vent Mode CMV; Arterial Blood Gas Ventilator rate 18 /MIN
[2020-01-12 04:55] LABS: Basophils Absolute Auto 0.1 K/mm3 (0.0-0.1); Basophils Percent Auto 0.7 % (0.2-1.2); Eosinophils Percent Auto 7.2 % (0-4.4); Hematocrit 25.3 % (37.0-47.0); Hemoglobin 7.7 g/dL (12.0-15.0); Immature Granulocyte Absolute 0.05 K/mm3 (0.00-0.031); Immature Granulocyte Percent A 0.4 % (0-0.5); Lymphocytes Absolute Auto 2.24 K/mm3 (0.9-3.2); Lymphocytes Percent Auto 16.7 % (18.3-44.2); Mean Corpuscular HGB Conc 30.4 g/dl (32-36); Mean Corpuscular Hemoglobin 28.9 pg (26-34); Mean Corpuscular Volume 95.1 fl (80-100); Mean Platelet Volume 11.6 fl (7.4-10.4); Monocytes Absolute Auto 0.8 K/mm3 (0.1-0.6); Monocytes Percent Auto 6.2 % (2.6-8.5); Neutrophils Absolute Auto 9.2 K/mm3 (1.3-6.7); Neutrophils Percent Auto 68.8 % (45.5-73.1); Platelet Count Result 208 k/mm3 (150-375); Red Blood Count 2.66 M/mm3 (4.2-5.4); Red Cell Distribution Width 15.1 % (11.5-14.5); White Blood Count 13.4 K/mm3 (4.5-10.0)
[2020-01-12 05:16] LABS: Lactic Acid 0.7 mmol/L (0.7-2.1)
[2020-01-12 05:30] LABS: Alanine Aminotransferase 15 U/L (4-35); Albumin Level 2.8 g/dL (3.5-5.1); Alkaline Phosphatase 133 U/L (38-126); Aspartate Amino Transferase 17 U/L (14-36); Bilirubin,Total 0.5 mg/dL (0.2-1.3); Blood Urea Nitrogen 49 mg/dL (7-17); Calcium 7.5 mg/dL (8.4-10.2); Carbon Dioxide 17 mmol/L (22-30); Chloride 111 mmol/L (98-107); Estimated CRCL calculation 13 ml/min; Estimated Glomerular Filt Rate 12; Glucose 138 mg/dL (65-105); Magnesium 1.7 mg/dL (1.6-2.3); Potassium 3.2 mmol/L (3.4-5.0); Sodium 143 mmol/L (137-145)
--- NOTE | 2020-01-12 06:34 | ECG_ITS ---
Measurements Intervals [place] Rate: 66 P: 57 WA: 196 QRS: 61 QRSD: 181 T: 33 QT: 475 QTc: 498 Interpretive Statements SINUS RHYTHM WITH MARKED RHYTHM IRREGULARITY, POSSIBLE NON-CONDUCTED PAC, SA BLOCK, AV BLOCK, OR SINUS PAUSE LEFT BUNDLE BRANCH BLOCK BASELINE ARTIFACT- I, II, AVR, AVL, AVF ABNORMAL ECG Electronically Signed On 01-12-2020 10:13:44 VIRTUAL OFFICE ASSISTANT by Simon Malave D.O.
--- NOTE | 2020-01-12 08:14 | PM.IMPN ---
Progress Note: A&P Assessment and Plan (1) Septic shock: Code(s): A41.9 - Sepsis, unspecified organism; R65.21 - Severe sepsis with septic shock Status: Acute Assessment and Plan: Initially met criteria for severe sepsis on admission. Unfortunately, patient with hypotension on 01/11/2020 requiring placement of central line and starting of Levophed. Now with septic shock criteria met. Blood pressure reviewed on 01/12/2020 and presently stable. Appreciate help from investigation officer. Blood cultures negative thus far. Urine culture negative. MRSA culture negative. Remains on IV cefepime and vancomycin. Also on IV sodium bicarb. Will continue to monitor closely. (2) Acute respiratory failure: Qualifiers: Respiratory failure complication: hypoxia Qualified Code(s): J96.01 - Acute respiratory failure with hypoxia Code(s): J96.00 - Acute respiratory failure, unspecified whether with hypoxia or hypercapnia Status: Acute Assessment and Plan: Result of influenza A. Remains sedated on ventilator. Ventilator management investigation officer. Continue nebulizer treatments and IV antibiotics. Continue to monitor. (3) Second degree AV block, Mobitz type II: Code(s): I44.1 - Atrioventricular block, second degree Status: Acute Assessment and Plan: Discussed with in investigation officer. Patient noted to have second-degree AV block on to . Cardiology consulted and appreciate input. Echocardiogram ordered to assess LV function and status of bioprosthetic aortic valve. Patient has previously declined ICD as an outpatient. Will continue to monitor. Await further recommendations from Cardiology. (4) Influenza A: Code(s): J10.1 - Influenza due to other identified influenza virus with other respiratory manifestations Status: Acute Assessment and Plan: Positive screen in the emergency room. Will continue Tamiflu to complete 5 days treatment. (5) Diabetes mellitus with ESRD (end-stage renal disease): Code(s): E11.22 - Type 2 diabetes mellitus with diabetic chronic kidney disease; N18.6 - End stage renal disease Status: Acute Assessment and Plan: Hemoglobin A1c 7.3 in February 2019. New hemoglobin A1c 6.2. Home oral medications on hold. Sliding scale insulin is available if needed. Glucose reviewed on 01/12/2020 and presently stable. Will continue to monitor. (6) Hypomagnesemia: Code(s): E83.42 - Hypomagnesemia Status: Acute Assessment and Plan: Magnesium at 1.7 today. Will continue to monitor and replace as needed. (7) CKD (chronic kidney disease), stage V: Code(s): N18.5 - Chronic kidney disease, stage 5 Status: Acute Assessment and Plan: Nephrology consulted and appreciate input. Creatinine unchanged at 3.80 today. AV fistula maturing in right arm with plan for hemodialysis. Will continue to monitor. (8) Chronic systolic heart failure: Code(s): I50.22 - Chronic systolic (congestive) heart failure Status: Acute Assessment and Plan: Will continue to hold Lasix, Coreg and losartan. No present decompensation. Will monitor. (9) Essential hypertension: Code(s): I10 - Essential (primary) hypertension Status: Acute Assessment and Plan: Blood pressure reviewed on 01/12/2020. Presently stable. Will continue to hold furosemide, Coreg and losartan. Will monitor. (10) Coronary artery disease involving [place] coronary artery of [place] heart: Qualifiers: Associated angina: without angina Qualified Code(s): I25.10 - Atherosclerotic heart disease of [place] coronary artery without angina pectoris Code(s): I25.10 - Atherosclerotic heart disease of [place] coronary artery without angina pectoris Status: Acute Assessment and Plan: No acute issue. Continue to hold atorvastatin, Coreg. Will monitor. (11) Chronic GERD: Code(s): K21.9 - Gastro-esophagea
[2020-01-12] MEDS: SODIUM BICARBONATE 8.4% 150 MEQ in DEXTROSE 5% 1,000 ML 950 ML 75 MEQ IV CONT (08:42)
[2020-01-12] MEDS: HEPARIN SODIUM 5,000 UNITS/ML VIAL 5000 UNITS SUB-Q ×2 (08:49→20:03)
[2020-01-12] MEDS: PANTOPRAZOLE SODIUM IV 40 MG VIAL IV PUSH (08:49)
[2020-01-12] MEDS: MAGNESIUM SULF 2 GM/WATER 50ML 2 GM/50 ML BAG IVPB (08:49)
[2020-01-12] MEDS: OSELTAMIVIR PHOSPHATE ORAL SUSP 30 MG/5 ML SYRINGE PO (08:50)
--- NOTE | 2020-01-12 09:34 | PM.PNNEP ---
Progress Note: A&P Assessment and Plan (1) CKD (chronic kidney disease), stage V: Code(s): N18.5 - Chronic kidney disease, stage 5 Status: Acute Assessment and Plan: The patient has chronic kidney disease and already has a fistula. She has superimposed acute kidney injury. This has improved with supportive care. Volume status looks okay. No need for dialysis at this point. (2) Severe sepsis: Code(s): A41.9 - Sepsis, unspecified organism; R65.20 - Severe sepsis without septic shock Status: Acute Assessment and Plan: Blood cultures are negative. Urine culture shows E coli. On antibiotics and supportive care. She is still on pressors. (3) Acute respiratory failure: Qualifiers: Respiratory failure complication: hypoxia Qualified Code(s): J96.01 - Acute respiratory failure with hypoxia Code(s): J96.00 - Acute respiratory failure, unspecified whether with hypoxia or hypercapnia Status: Acute Assessment and Plan: The patient is intubated. She is on 30% oxygen with a peep of 8. (4) Essential hypertension: Code(s): I10 - Essential (primary) hypertension Status: Acute Assessment and Plan: She is off antihypertensives because of her sepsis. (5) Diabetes: Code(s): E11.9 - Type 2 diabetes mellitus without complications Status: Acute Assessment and Plan: . On Accu-Cheks and sliding-scale insulin Subjective Date/time seen: 01/12/20 09:34 Interval history: Patient wakens a little bit On the ventilator looks comfortable She is breathing easily. Review of Systems Review of Systems: ROS unobtainable: unobtainable due to endotracheal tube Exam Narrative: Exam Narrative: Well developed well-nourished in no acute distress Lungs mildly coarse upper airway noise Heart regular without rub Abdomen bowel sounds positive soft nontender Extremities no edema Skin no rash Objective Data Vital Signs Vital Signs: Vital Signs - 24 hr 01/11/20 10:00 01/11/20 11:12 01/11/20 12:00 Temperature 36.6 C Pulse Rate 81 70 71 Respiratory Rate 18 18 Blood Pressure 91/45 L 99/40 L Pulse Oximetry 100 100 100 01/11/20 14:00 01/11/20 14:39 01/11/20 14:46 Temperature Pulse Rate 73 73 74 Respiratory Rate 18 18 18 Blood Pressure 83/39 L Pulse Oximetry 100 02/13/20 14:49 01/11/20 16:00 01/11/20 17:09 Temperature 36.6 C Pulse Rate 74 72 74 Respiratory Rate 18 Blood Pressure 89/44 L Pulse Oximetry 100 100 100 01/11/20 18:00 01/11/20 20:00 01/11/20 20:30 Temperature 37.4 C Pulse Rate 72 73 74 Respiratory Rate 18 18 Blood Pressure 109/47 L 107/48 L Pulse Oximetry 97 100 100 01/11/20 21:18 01/11/20 21:26 01/11/20 22:00 Temperature Pulse Rate 76 73 72 Respiratory Rate 18 18 18 Blood Pressure 109/50 L Pulse Oximetry 100 01/11/20 23:30 01/12/20 00:00 01/12/20 02:00 Temperature 37.3 C Pulse Rate 67 80 96 Respiratory Rate 18 18 Blood Pressure 107/49 L 127/51 L Pulse Oximetry 98 99 95 01/12/20 02:02 01/12/20 02:24 01/12/20 02:42 Temperature Pulse Rate 96 83 96 Respiratory Rate 20 18 Blood Pressure Pulse Oximetry 99 01/12/20 04:00 01/12/20 05:05 01/12/20 06:00 Temperature 37.6 C Pulse Rate 78 74 68 Respiratory Rate 18 18 Blood Pressure 118/51 L 139/53 L Pulse Oximetry 97 100 99 01/12/20 08:00 Temperature 36.8 C Pulse Rate 65 Respiratory Rate 17 Blood Pressure 147/54 H Pulse Oximetry 99 Intake/Output Intake/Output: Intake & Output 01/09/20 01/10/20 01/11/20 01/12/20 23:59 23:59 23:59 23:59 Intake Total 2279.5 1330.5 Output Total 1950 500 Balance 329.5 830.5 Meds/Results Medications: Active Medications Generic Name Dose Route Start Last Admin Trade Name Freq PRN Reason Stop Dose Admin Albuterol 5 mg 01/10/20 20:00 01/12/20 09:32 Albuterol Sulf Neb 2.5mg/0.5ml INHALATION 5 mg Q6HRT CYNTHIA A
[2020-01-12] MEDS: MIDAZOLAM HCL 50 MG in DEXTROSE 5% 90 ML 6 MG IV CONT (10:00)
--- NOTE | 2020-01-12 10:40 | PM.CNCAR ---
Assessment and Plan Assessment and plan (1) Acute respiratory failure: Qualifiers: Respiratory failure complication: hypoxia Qualified Code(s): J96.01 - Acute respiratory failure with hypoxia Code(s): J96.00 - Acute respiratory failure, unspecified whether with hypoxia or hypercapnia Status: Acute Assessment and Plan: Continue ventilatory support. Wean as tolerated. Per Critical Care and primary service. (2) Influenza A: Code(s): J10.1 - Influenza due to other identified influenza virus with other respiratory manifestations Status: Acute Assessment and Plan: Supportive care, Tamiflu. Respiratory isolation currently. (3) Second degree AV block, Mobitz type II: Code(s): I44.1 - Atrioventricular block, second degree Status: Acute Assessment and Plan: Transient and episodic second-degree AV block Mobitz type 2 thus far. Multifactorial etiology. 2D echocardiogram to assess LV function, status of bioprosthetic aortic valve. Avoid AV junaid blocking agents for the time being. Patient has previously per office notes declined ICD. Patient will require beta-mamie support given LV dysfunction, CAD and history of chronic systolic heart failure and as such this represents yet and additional reason to consider ICD implantation as appropriate. Further recommendations after review of echocardiogram. Continue to monitor telemetry. If high-grade block and/or prolonged pauses notify us immediately. Temporary transvenous pacemaker not indicated at this time. Monitor electrolytes closely to keep potassium at 4 magnesium around 2. Atropine at bedside. (4) Coronary artery disease involving [place] coronary artery of [place] heart: Qualifiers: Associated angina: without angina Qualified Code(s): I25.10 - Atherosclerotic heart disease of [place] coronary artery without angina pectoris Code(s): I25.10 - Atherosclerotic heart disease of [place] coronary artery without angina pectoris Status: Acute Assessment and Plan: Negative troponin initially. Continuation of statin, aspirin as appropriate. (5) Ischemic cardiomyopathy: Code(s): I25.5 - Ischemic cardiomyopathy Status: Acute Assessment and Plan: 2D echocardiogram. Not clinically in overt decompensated heart failure. Continue supportive care. Monitor volume status closely given LV dysfunction history. (6) Severe sepsis: Code(s): A41.9 - Sepsis, unspecified organism; R65.20 - Severe sepsis without septic shock Status: Acute Assessment and Plan: Per primary service. Remains on broad-spectrum antibiotics. Cultures pending. Influenza A. Intubated, remains on norepinephrine. (7) S/P CABG x 3: Code(s): Z95.1 - Presence of aortocoronary bypass graft Status: Acute (8) Chronic systolic heart failure: Code(s): I50.22 - Chronic systolic (congestive) heart failure Status: Acute Assessment and Plan: As above. (9) History of aortic valve replacement with bioprosthetic valve: Code(s): Z95.3 - Presence of xenogenic heart valve Status: Acute Assessment and Plan: 2D echocardiogram. Will assess status given exam suggestive of progressive murmur although may be related to clinical condition, hemodynamics as compared to documentation from November 2019 in the office. (10) LBBB (left bundle branch block): Code(s): I44.7 - Left bundle-branch block, unspecified Status: Acute Assessment and Plan: Chronic, QRS 181 milliseconds. If EF remains less than 35% particular given wide QRS LBBB and now with second-degree AV block type 2 biventricular ICD would be indicated. This is not performed at this institution and would not be in the setting dose she is cleared infection and has stabilize hemodynamically. If she would require device therapy she would likely be best served transfer to an outside facility capable of perform
--- NOTE | 2020-01-12 10:42 | ECHO_ITS ---
Patient Info Name: Martha Reid Age: 69 years : 1950 Gender: Female Ht: 63 in Wt: 180 lbs BSA: 1.94 m2 HR: 81 bpm BP: 132 / 50 mmHg Heart Rhythm: Left Bundle Branch Block, Sinus Rhythm Technical Quality: Good Exam Date: 01/12/2020 11:22 AM Exam Location: [facility] Pulmonary Patient Status: Inpatient Admit Date: 01/10/2020 Staff Ordering Physician: Eric Cotto MD [employer]chandising Manager: Andrey Cabrera RDCS Attending Provider: Leonor Stallworth MD Referring Physician: Kirti NAVARRO; Exam Type: CA echo doppler color flow Study Info Indications I45.5 - Other specified heart block Complete two-dimensional, color flow and Doppler transthoracic echocardiogram is performed. Strain analysis performed. History/Risk Factors Heart block and cardiomyopathy; AVR, HTN, COPD, acute repsiratory failure, sepsis, DM2, ESRD, CKD V. Summary 1. Technically difficult study with limited views. Regional wall motion assessment limited due to poor endomyocardial border definition. 2. Left ventricular systolic function is mildly reduced, estimated at 50-55%. 3. There is moderately increased left ventricular wall thickness. 4. Left ventricular septal wall motion is abnormal with septal motion related to bundle branch block. 5. The left ventricular diastolic function is grade I diastolic dysfunction. 6. E/e' 53.5 is severely elevated. 7. Global longitudinal strain is moderately elevated at -11 %. 8. Left atrial chamber dimension is moderately enlarged. 9. There is at least mild bioprosthetic aortic valve stenosis abnormal gradients with a peak velocity of 352 cm/s, mean gradient of 24 mmHg, and aortic valve area of 1.4 cm2. 10. There is trace regurgitation of the not well visualized prosthetic aortic valve. 11. The mitral valve has thickened leaflets and calcified leaflets. 12. There is moderate mitral valve stenosis. 13. There is mild mitral valve regurgitation. 14. The mitral valve annulus is severely calcified. 15. There is mild tricuspid valve regurgitation. 16. Moderate pulmonary hypertension, estimated pulmonary arterial systolic pressure is 51 mmHg. 17. Dilated inferior vena cava with no collapse upon inspiration consistent with significantly elevated right atrial pressure, 15 mmHg. Left Ventricle Left ventricular chamber dimension is normal. Left ventricular systolic function is mildly reduced, estimated at 50-55%. There is moderately increased left ventricular wall thickness. Left ventricular septal wall motion is abnormal with septal motion related to bundle branch block. The left ventricular diastolic function is grade I diastolic dysfunction. E/e' 53.5 is severely elevated. Global longitudinal strain is moderately elevated at -11 %. Technically difficult study with limited views. Regional wall motion assessment limited due to poor endomyocardial border definition. Right Ventricle Right ventricular chamber dimension is normal. Right ventricular systolic function is normal. Left Atria Left atrial chamber dimension is moderately enlarged. Right Atria Right atrial chamber dimension is normal. Aortic Valve The not well visualized prosthetic aortic valve is not well visualized. There is at least mild bioprosthetic aortic valve stenosis abnormal gradients with a peak velocity of 352 cm/s, mean gradient of 24 mmHg, and aortic valve area of 1.4 cm2. There is trace regurgitation of the not well visualized prosthetic aortic valve. Pulmonic Valve The pulmonic valve is not well visu
--- NOTE | 2020-01-12 11:47 | PCDIET ---
Nutrition Follow-Up Complete: Nutrition Diagnosis: Inadequate oral intake related to NPO status as evidenced by intubation, need for enteral nutrition Nutrition Goal: Initiation and tolerate EN Goal not met. Discussed during rounds with MD order for Nepro at 35mL/hr goal rate which provides 1386kcal, 62g protein and 559mL free water. This will provide carbohydrate control with lower protein content than Glucerna 1.2. Last recorded weight is 81.5 kg which is decreased. Urine output good. Bowel Motility: +Bowel sounds, per RN. No documented bowel movement, as of yet. Labs Reviewed: Glu (138), BUN (49), Cr (3.8), K (3.2), Alb (2.8), Jennifer Ca (8.46) Meds Noted: Cefepime, Fentanyl, Novolog, Versed, Levophed, Protonix, IV KCl, Sodium Bicarbonate, Vancomycin Additional Notes: s/p magnesium sulfate. Left knee abrasion; no other skin issues reported. Will continue to monitor with same goal. Nutrition Monitoring and Evaluation: Follow up every Wednesday/Wednesday. Follow daily in ICU rounds.
[2020-01-12 12:04] LABS: Glucose Point of Care 150 (65-105)
--- NOTE | 2020-01-12 13:20 | WPDINTPN ---
Progress Note: A&P Assessment and Plan (1) Septic shock: Code(s): A41.9 - Sepsis, unspecified organism; R65.21 - Severe sepsis with septic shock Status: Acute Assessment and Plan: source unknown, patient was hypotensive on 01/11/2020, central line was inserted and started on Levophed, maintain mean arterial pressure is greater than 65 mmHg. - Continue cefepime and vancomycin, - preliminary blood and urine cultures are negative for - continue maintenance IV fluids with bicarb infusion (2) Acute respiratory failure: Qualifiers: Respiratory failure complication: hypoxia Qualified Code(s): J96.01 - Acute respiratory failure with hypoxia Code(s): J96.00 - Acute respiratory failure, unspecified whether with hypoxia or hypercapnia Status: Acute Assessment and Plan: patient presented with acute respiratory failure: possible COPD exacerbation and/or pneumonia which could have been brought on by influenza A. - chest x-ray shows unchanged airspace opacities at right lung base consistent with atelectasis or less likely pneumonia - continue bronchodilators, no wheezing noted, hold steroids for now - continue cefepime and vancomycin, will deescalate if blood cultures are negative (3) Influenza A: Code(s): J10.1 - Influenza due to other identified influenza virus with other respiratory manifestations Status: Acute Assessment and Plan: patient with positive influenza A, started patient on Tamiflu renally dosed (4) Diabetes mellitus with ESRD (end-stage renal disease): Code(s): E11.22 - Type 2 diabetes mellitus with diabetic chronic kidney disease; N18.6 - End stage renal disease Status: Acute Assessment and Plan: blood sugars have been stable, continue sliding scale and Accu-Cheks - Hemoglobin A1c 6.2 this admission (5) CKD (chronic kidney disease), stage V: Code(s): N18.5 - Chronic kidney disease, stage 5 Status: Acute Assessment and Plan: acute on chronic kidney disease, could be related to hypotension, septic shock. Patient has a history of stage 5 chronic kidney disease with AV fistula in the right arm. - Nephrology has been consulted, await their input - patient with adequate urine output, creatinine improved to 3.8 this morning from 4.2 on admission - continue bicarb infusion - will replace potassium and magnesium (6) Chronic GERD: Code(s): K21.9 - Gastro-esophageal reflux disease without esophagitis Status: Acute Assessment and Plan: continue IV PPI (7) Second degree AV block, Mobitz type II: Code(s): I44.1 - Atrioventricular block, second degree Status: Acute Assessment and Plan: patient developed second-degree AV block Mobitz type 2 this could be multifactorial. Related to acute respiratory failure, ischemic cardiomyopathy, uremia secondary to chronic kidney disease, metabolic acidosis - will obtain 2D echocardiogram - appreciate Cardiology evaluation recommendation -According to Cardiology patient has had history of 3 vessel CABG in 2013 with bioprosthetic aortic valve. Patient also has a history of ischemic cardiomyopathy with severe LV dysfunction. (8) DVT prophylaxis: Code(s): Z29.9 - Encounter for prophylactic measures, unspecified Status: Acute Assessment and Plan: heparin subcu Additional Plan discussed with patient's and updated him with her condition and plan of care. I answered all questions. Code status: Full code Critical care time spent: 33 minutes Due to a high probability of clinically significant, life threatening deterioration, the patient required my highest level of preparedness to intervene emergently and I personally spent this critical care time directly and personally managing the patient. This critical care time included obtaining a history; examining the patient; pulse oximetry; ordering and review
[2020-01-12 17:39] LABS: Glucose Point of Care 176 (65-105)
[2020-01-12] MEDS: TOLNAFTATE 1% POWDER 45 GM BTL 1 APPLIC TOPICAL (22:18)
[2020-01-13] VITALS (27 sets, daily range): BP systolic 97–165; BP diastolic 42–60; PULSE 58–86; RESP 13–20; TEMP 36.4–37.1; O2SAT 94–100
[2020-01-13 00:29] LABS: Glucose Point of Care 159 (65-105)
[2020-01-13] MEDS: ALBUTEROL SULFATE NEB 2.5 MG/0.5 ML INH 5 MG INHALATION ×4 (02:39→19:31)
[2020-01-13] MEDS: IPRATROPIUM BR 0.02% INH SOLN 0.5 MG/2.5 ML VIAL INHALATION ×4 (02:39→19:31)
[2020-01-13] MEDS: SODIUM BICARBONATE 8.4% 150 MEQ in DEXTROSE 5% 1,000 ML 950 ML 75 MEQ IV CONT (02:53)
[2020-01-13] MEDS: MIDAZOLAM HCL 50 MG in DEXTROSE 5% 90 ML 6 MG IV CONT (02:53)
[2020-01-13 04:10] LABS: Alveolar/Arterial O2 Gradient 101.4 mmHg; Base Excess ABG 0.2 mEq/l (+/-2.0); Carboxyhemoglobin 0.4 % THb (0-2.0); Fractional Inspired Oxygen 30 %; Methemoglobin ABG 0.3 %THb (0-1.5); Oxygen Content ABG 15.8 %vol (16.0-22.0); Oxygen Saturation ABG 94.8 % (95.0-100.0); Oxyhemoglobin 92.7 % THb (90.0-100.0); PO2 ABG 70.2 mmHg (80.0-100.0); PO2 FiO2 Ratio Arterial Blood 2.34 %; Reduced Hemoglobin 6.6 %THb (0-5.0); Total Hemoglobin 12.1 g/dL (12.0-18.0); pH ABG 7.442 (7.350-7.450)
[2020-01-13 04:11] LABS: Device VENTILATOR; Modified Allen's Test Pass; Site Drawn LEFT RADIAL
[2020-01-13 04:12] LABS: Arterial Blood Gas PEEP 5 cmH2O; Arterial Blood Gas Vent Mode ASV
[2020-01-13 06:10] LABS: Lactic Acid 1.1 mmol/L (0.7-2.1)
[2020-01-13 06:26] LABS: Albumin Level 2.8 g/dL (3.5-5.1); Blood Urea Nitrogen 41 mg/dL (7-17); Calcium 8.1 mg/dL (8.4-10.2); Carbon Dioxide 25 mmol/L (22-30); Chloride 105 mmol/L (98-107); Estimated CRCL calculation 16 ml/min; Estimated Glomerular Filt Rate 14; Glucose 190 mg/dL (65-105); Phosphorus 3.9 mg/dL (2.5-4.5); Potassium 3.5 mmol/L (3.4-5.0); Sodium 140 mmol/L (137-145)
[2020-01-13 07:06] LABS: Hematocrit 25.7 % (37.0-47.0); Mean Corpuscular HGB Conc 31.1 g/dl (32-36); Mean Corpuscular Hemoglobin 29.1 pg (26-34); Mean Corpuscular Volume 93.5 fl (80-100); Mean Platelet Volume 11.8 fl (7.4-10.4); Platelet Count Result 212 k/mm3 (150-375); Red Blood Count 2.75 M/mm3 (4.2-5.4); Red Cell Distribution Width 15.1 % (11.5-14.5); White Blood Count 13.1 K/mm3 (4.5-10.0)
[2020-01-13 07:16] LABS: Eosinophils Percent Auto 3.6 % (0-4.4); Immature Granulocyte Percent A 0.3 % (0-0.5); Lymphocytes Percent Auto 12.3 % (18.3-44.2); Monocytes Percent Auto 5.9 % (2.6-8.5); Neutrophils Percent Auto 74.1 % (45.5-73.1)
[2020-01-13 07:17] LABS: Basophils Absolute Auto 0.1 K/mm3 (0.0-0.1); Basophils Percent Auto 0.5 % (0.2-1.2); Eosinophils Absolute Auto 0.9 K/mm3 (0-0.3); Immature Granulocyte Absolute 0.04 K/mm3 (0.00-0.031); Lymphocytes Absolute Auto 1.53 K/mm3 (0.9-3.2); Monocytes Absolute Auto 0.7 K/mm3 (0.1-0.6); Neutrophils Absolute Auto 9.2 K/mm3 (1.3-6.7)
--- NOTE | 2020-01-13 08:10 | PM.IMPN ---
Progress Note: A&P Assessment and Plan (1) Septic shock: Code(s): A41.9 - Sepsis, unspecified organism; R65.21 - Severe sepsis with septic shock Status: Acute Assessment and Plan: Initially met criteria for severe sepsis on admission. Unfortunately, patient with hypotension on 01/11/2020 requiring placement of central line and starting of Levophed. Now with septic shock criteria met. Blood pressure reviewed on 01/13/2020 and improved. Discussed with wet machine tender. Levophed now discontinued. Continue to monitor. Blood cultures remain negative thus far. Urine culture negative. MRSA culture negative. On IV cefepime and vancomycin. Also on IV sodium bicarb rate decreased today. Will continue to monitor closely. (2) Acute respiratory failure: Qualifiers: Respiratory failure complication: hypoxia Qualified Code(s): J96.01 - Acute respiratory failure with hypoxia Code(s): J96.00 - Acute respiratory failure, unspecified whether with hypoxia or hypercapnia Status: Acute Assessment and Plan: Result of influenza A. Remains sedated on ventilator. Ventilator management wet machine tender. Continue nebulizer treatments and IV antibiotics. Plan to decrease sedation with possible weaning/extubation ventilator today. Chest x-ray today with improvement. Continue to monitor. (3) Second degree AV block, Mobitz type II: Code(s): I44.1 - Atrioventricular block, second degree Status: Acute Assessment and Plan: Patient noted to have second-degree AV block on 01/11/2020. Cardiology consulted and appreciate input. Echocardiogram ordered to assess LV function and status of bioprosthetic aortic valve. On 01/12/2020 with EF 50-55%, regional wall motion assessment limited due to poor endomyocardial border definition, left ventricular septal wall motion abnormal with septal motion related to bundle branch block, grade 1 diastolic dysfunction, mild bioprosthetic aortic valve stenosis, moderate mitral valve stenosis with mild mitral valve regurgitation and pulmonary hypertension. Patient has previously declined ICD as an outpatient per Cardiology. Will continue to monitor. Await further recommendations from Cardiology. (4) Influenza A: Code(s): J10.1 - Influenza due to other identified influenza virus with other respiratory manifestations Status: Acute Assessment and Plan: Positive screen in the emergency room. Will continue Tamiflu to complete 5 days treatment. (5) Diabetes mellitus with ESRD (end-stage renal disease): Code(s): E11.22 - Type 2 diabetes mellitus with diabetic chronic kidney disease; N18.6 - End stage renal disease Status: Acute Assessment and Plan: Hemoglobin A1c 7.3 in February 2019. New hemoglobin A1c 6.2. Home oral medications remain on hold. Sliding scale insulin is available if needed. Glucose reviewed on 01/13/2020 and stable. Will continue to monitor. (6) Hypomagnesemia: Code(s): E83.42 - Hypomagnesemia Status: Acute Assessment and Plan: Magnesium stable at 2.0 today. Will continue to monitor and replace as needed. (7) CKD (chronic kidney disease), stage V: Code(s): N18.5 - Chronic kidney disease, stage 5 Status: Acute Assessment and Plan: Nephrology consulted and appreciate input. Creatinine slightly better at 3.20 today. AV fistula maturing in right arm with plan for hemodialysis. Will continue to monitor. (8) Chronic systolic heart failure: Code(s): I50.22 - Chronic systolic (congestive) heart failure Status: Acute Assessment and Plan: Will continue to hold Lasix, Coreg and losartan. No present decompensation. Echocardiogram on 01/12/2020 as noted above. Will monitor. (9) Essential hypertension: Code(s): I10 - Essential (primary) hypertension Status: Acute Assessment and Plan: Blood pressure reviewed on 01/13/2020. Remains stable. Will continue
--- NOTE | 2020-01-13 08:29 | WPDINTPN ---
Progress Note: A&P Assessment and Plan (1) Septic shock: Code(s): A41.9 - Sepsis, unspecified organism; R65.21 - Severe sepsis with septic shock Status: Acute Assessment and Plan: OFF Levophed. - patient was hypotensive on 01/11/2020, central line was inserted and started on Levophed, maintain mean arterial pressure is greater than 65 mmHg. source lungs - Continue cefepime and vancomycin, - preliminary blood and urine cultures are negative for - continue maintenance IV fluids with bicarb infusion (2) Acute respiratory failure: Qualifiers: Respiratory failure complication: hypoxia Qualified Code(s): J96.01 - Acute respiratory failure with hypoxia Code(s): J96.00 - Acute respiratory failure, unspecified whether with hypoxia or hypercapnia Status: Acute Assessment and Plan: patient presented with acute respiratory failure: possible COPD exacerbation and/or pneumonia which could have been brought on by influenza A. - chest x-ray this morning shows small right pleural effusion with right basilar atelectasis versus less likely pneumonia - continue bronchodilators, no wheezing noted, hold steroids for now - will decrease sedation, and place patient on SBT and evaluate for extubation. Patient may require Precedex (3) Influenza A: Code(s): J10.1 - Influenza due to other identified influenza virus with other respiratory manifestations Status: Acute Assessment and Plan: patient with positive influenza A, started patient on Tamiflu renally dosed (4) Diabetes mellitus with ESRD (end-stage renal disease): Code(s): E11.22 - Type 2 diabetes mellitus with diabetic chronic kidney disease; N18.6 - End stage renal disease Status: Acute Assessment and Plan: blood sugars have been stable, continue sliding scale and Accu-Cheks - Hemoglobin A1c 6.2 this admission (5) CKD (chronic kidney disease), stage V: Code(s): N18.5 - Chronic kidney disease, stage 5 Status: Acute Assessment and Plan: acute on chronic kidney disease, could be related to hypotension, septic shock. Patient has a history of stage 5 chronic kidney disease with AV fistula in the right arm. - Nephrology has been consulted, await their input - patient with adequate urine output, creatinine improved to 3.8 this morning from 4.2 on admission - continue bicarb infusion, decrease rate (6) Chronic GERD: Code(s): K21.9 - Gastro-esophageal reflux disease without esophagitis Status: Acute Assessment and Plan: continue IV PPI (7) Second degree AV block, Mobitz type II: Code(s): I44.1 - Atrioventricular block, second degree Status: Acute Assessment and Plan: patient developed second-degree AV block Mobitz type 2 this could be multifactorial. 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 Patient also has a history of ischemic cardiomyopathy with severe LV dysfunction. (8) DVT prophylaxis: Code(s): Z29.9 - Encounter for prophylactic measures, unspecified Status: Acute Assessment and Plan: heparin subcu Additional Plan discussed with patient's and updated him with her condition and plan of care. I answered all questions. Code status: Full code Critical care time spent: 32 minutes Due to a high probability of clinically significant, life threatening deterioration, th
[2020-01-13] MEDS: HEPARIN SODIUM 5,000 UNITS/ML VIAL 5000 UNITS SUB-Q ×2 (08:36→20:21)
[2020-01-13] MEDS: TOLNAFTATE 1% POWDER 45 GM BTL 1 APPLIC TOPICAL ×2 (08:36→20:16)
[2020-01-13] MEDS: PANTOPRAZOLE SODIUM IV 40 MG VIAL IV PUSH (08:36)
[2020-01-13] MEDS: OSELTAMIVIR PHOSPHATE ORAL SUSP 30 MG/5 ML SYRINGE PO (08:43)
--- NOTE | 2020-01-13 09:00 | PM.PNCARD ---
Progress Note: A&P Additional Plan Follow-up visit for 61-year-old lady with ischemic heart disease status post CABG and bioprosthetic AVR approximately 6 years ago. Patient presents with respiratory insufficiency requiring intubation mechanical ventilation working diagnosis is influenza a Has episodes of second-degree AV block intermittently which apparently was noted as an outpatient by Dr. Garcia and for which the patient has refused to consider device therapy. As per Dr. mishra the only recommendation therefore is to avoid agents that would block AV node function. Fortunately echocardiogram yesterday demonstrates improved left ventricular systolic function. Will continue to follow this patient with you but is currently not a candidate nor did she require specific cardiac evaluation. Time Spent With Patient Time with patient: less than 15 minutes Subjective Date/time seen: 01/13/20 09:00 Interval history: Reason for consult: Acute respiratory failure, BARRON, Influenza A 01/13/2020 to: patient remains intubated on 30% FiO2 on ASV mode of ventilation. Urine output has been adequate, creatinine improving. sedated with fentanyl 75 mcg/hr and Versed 3 mg/hr infusion. Patient opens her eyes, follows simple commands. Plan for today to wean sedation and attempt extubation is noted Exam Narrative: Exam Narrative: General: female well developed, sedated on mechanical ventilatory support appearing comfortable in the ICU. Head: atraumatic, normocephalic Eyes: limited examination due to sedation. Sclerae anicteric, conjunctivae unremarkable Ears/Nose: external inspection of ears and nose were grossly normal Mouth/Throat: Limited examination due to endotracheal intubation Neck: supple, normal range of motion, no jugular venous distention or carotid bruits, thyroid nonpalpable, trachea midline. Cardiac: Regular rate and rhythm, normal S1-S2, III/ mid peaking systolic murmur ULSB and RUSB, no rubs. Lungs: Diminished breath sounds bilaterally, no obvious rales or wheezes. Abdomen: Obese, soft, nontender, nondistended, positive bowel sounds throughout. No appreciable hepato-splenomegaly, no rebound guarding or rigidity noted. Abdominal aorta nonpalpable, no appreciable bruits. Extremities: No edema, clubbing, and or cyanosis. Extremities warm and well perfused. Skin: Warm and dry without ecchymoses, rashes, and/or petechiae. Musculoskeletal: Limited examination due to endotracheal intubation and sedation. Vascular: Carotid upstrokes 2+ bilaterally, radial pulses 2+ bilaterally, dorsalis pedis pulses 1+ bilaterally. Neurologic: Limited examination due to sedation and endotracheal intubation, although grossly nonfocal Pscyhiatric: Limited due to sedation and mechanical ventilatory support. Objective Data Vital Signs Vital Signs: Vital Signs - 24 hr 01/12/20 09:33 01/12/20 09:38 01/12/20 09:44 Temperature Pulse Rate 73 76 76 Respiratory Rate 14 21 H Blood Pressure Pulse Oximetry 95 01/12/20 10:00 01/12/20 12:00 01/12/20 12:20 Temperature 36.6 C Pulse Rate 74 77 73 Respiratory Rate 14 18 Blood Pressure 113/47 L 124/48 L Pulse Oximetry 100 99 99 01/12/20 14:00 01/12/20 15:47 01/12/20 15:50 Temperature Pulse Rate 71 70 70 Respiratory Rate 14 13 Blood Pressure 108/45 L Pulse Oximetry 99 100 01/12/20 16:00 01/12/20 17:55 01/12/20 18:00 Temperature 37.1 C Pulse Rate 71 74 74 Respiratory Rate 13 10 L Blood Pressure 143/51 H 128/47 L Pulse Oximetry 97 96 97 01/12/20 20:00 01/12/20 20:38 01/12/20 20:45 Temperature 36.9 C Pulse Rate 71 68 68 Respiratory Rate 12 13 Blood Pressure 125/47 L Pulse Oximetry 99 97 01/12/20 20:55 01/12/20 22:00 01/12/20 23:35 Temperature Pulse Rate 73 67 67 Respiratory Rate 14 14 Blood Pressure 133/51 L Pulse Oximetry 100 100 01/13/20 00:00 01/13/20 02:00 01/13/20 02:40 Te
--- NOTE | 2020-01-13 10:20 | PM.PNNEP ---
Progress Note: A&P Assessment and Plan (1) CKD (chronic kidney disease), stage V: Code(s): N18.5 - Chronic kidney disease, stage 5 Status: Acute Assessment and Plan: The patient has chronic kidney disease and already has a fistula. She has superimposed acute kidney injury. The creatinine continues to improve. She is making plenty of urine. Volume status looks fine (2) Severe sepsis: Code(s): A41.9 - Sepsis, unspecified organism; R65.20 - Severe sepsis without septic shock Status: Deleted Assessment and Plan: Blood cultures are negative. Urine culture shows E coli. On antibiotics and supportive care. On very small dose of Levophed now. (3) Acute respiratory failure: Qualifiers: Respiratory failure complication: hypoxia Qualified Code(s): J96.01 - Acute respiratory failure with hypoxia Code(s): J96.00 - Acute respiratory failure, unspecified whether with hypoxia or hypercapnia Status: Acute Assessment and Plan: The patient is intubated. She is on 30% oxygen with a peep of 5. (4) Essential hypertension: Code(s): I10 - Essential (primary) hypertension Status: Acute Assessment and Plan: She is off antihypertensives because of her sepsis. (5) Diabetes: Code(s): E11.9 - Type 2 diabetes mellitus without complications Status: Acute Assessment and Plan: . On Accu-Cheks and sliding-scale insulin Subjective Date/time seen: 01/13/20 10:20 Interval history: Patient wakens a little bit but not enough to converse. On the ventilator looks comfortable She is breathing easily. Review of Systems Review of Systems: ROS unobtainable: unobtainable due to endotracheal tube Exam Narrative: Exam Narrative: Well developed well-nourished in no acute distress Lungs mildly coarse upper airway noise Heart regular without rub or gallop Abdomen bowel sounds positive soft nontender Extremities no edema Skin no rash or subcu nodules Objective Data Vital Signs Vital Signs: Vital Signs - 24 hr 01/12/20 12:00 01/12/20 12:20 01/12/20 14:00 Temperature 36.6 C Pulse Rate 77 73 71 Respiratory Rate 18 14 Blood Pressure 124/48 L 108/45 L Pulse Oximetry 99 99 99 01/12/20 15:47 01/12/20 15:50 01/12/20 16:00 Temperature 37.1 C Pulse Rate 70 70 71 Respiratory Rate 13 13 Blood Pressure 143/51 H Pulse Oximetry 100 97 01/12/20 17:55 01/12/20 18:00 01/12/20 20:00 Temperature 36.9 C Pulse Rate 74 74 71 Respiratory Rate 10 L 12 Blood Pressure 128/47 L 125/47 L Pulse Oximetry 96 97 99 01/12/20 20:38 01/12/20 20:45 01/12/20 20:55 Temperature Pulse Rate 68 68 73 Respiratory Rate 13 14 Blood Pressure Pulse Oximetry 97 01/12/20 22:00 01/12/20 23:35 01/13/20 00:00 Temperature 36.4 C Pulse Rate 67 67 71 Respiratory Rate 14 14 Blood Pressure 133/51 L 124/49 L Pulse Oximetry 100 100 100 01/13/20 02:00 01/13/20 02:40 01/13/20 02:44 Temperature Pulse Rate 67 72 72 Respiratory Rate 14 Blood Pressure 127/48 L Pulse Oximetry 100 100 01/13/20 04:00 01/13/20 04:14 01/13/20 06:00 Temperature 36.6 C Pulse Rate 83 71 73 Respiratory Rate 13 Blood Pressure 116/60 97/42 L Pulse Oximetry 99 100 98 01/13/20 08:00 01/13/20 08:43 01/13/20 08:50 Temperature 36.7 C Pulse Rate 72 70 71 Respiratory Rate 13 13 14 Blood Pressure 104/53 L Pulse Oximetry 99 98 Intake/Output Intake/Output: Intake & Output 01/10/20 01/11/20 01/12/20 01/13/20 23:59 23:59 23:59 23:59 Intake Total 2279.5 2415.5 1353 Output Total 1950 1250 475 Balance 329.5 1165.5 878 Meds/Results Medications: Active Medications Generic Name Dose Route Start Last Admin Trade Name Freq PRN Reason Stop Dose Admin Albuterol 5 mg 01/10/20 20:00 01/13/20 08:42 Albuterol Sulf Neb 2.5mg/0.5ml INHALATION 5 mg Q6HRT CYNTHIA Administration Atropine Sulfate 0.4 mg 12/30
[2020-01-13] MEDS: KCL 20 MEQ/SW 100 ML 100 ML 50 MEQ IVPB (10:21)
[2020-01-13 13:39] LABS: Glucose Point of Care 184 (65-105)
[2020-01-13 16:58] LABS: Glucose Point of Care 218 (65-105)
[2020-01-13] MEDS: INSULIN ASPART (*BKC) 100 UNITS/ML SUB-Q (18:44)
[2020-01-13] MEDS: SODIUM BICARBONATE 8.4% 150 MEQ in DEXTROSE 5% 1,000 ML 950 ML 50 MEQ IV CONT (20:12)
[2020-01-14] VITALS (25 sets, daily range): BP systolic 95–178; BP diastolic 45–80; PULSE 52–114; RESP 12–23; TEMP 35.7–36.8; O2SAT 89–100
[2020-01-14 00:26] LABS: Glucose Point of Care 279 (65-105)
[2020-01-14] MEDS: ALBUTEROL SULFATE NEB 2.5 MG/0.5 ML INH 5 MG INHALATION ×4 (01:42→21:24)
[2020-01-14] MEDS: IPRATROPIUM BR 0.02% INH SOLN 0.5 MG/2.5 ML VIAL INHALATION ×4 (01:42→21:24)
[2020-01-14 06:15] LABS: Hematocrit 27.7 % (37.0-47.0); Hemoglobin 8.7 g/dL (12.0-15.0); Mean Corpuscular HGB Conc 31.4 g/dl (32-36); Mean Corpuscular Hemoglobin 29.1 pg (26-34); Mean Corpuscular Volume 92.6 fl (80-100); Mean Platelet Volume 11.4 fl (7.4-10.4); Platelet Count Result 256 k/mm3 (150-375); Red Blood Count 2.99 M/mm3 (4.2-5.4); Red Cell Distribution Width 14.6 % (11.5-14.5); White Blood Count 14.2 K/mm3 (4.5-10.0)
[2020-01-14 06:28] LABS: Blood Urea Nitrogen 33 mg/dL (7-17); Calcium 8.3 mg/dL (8.4-10.2); Carbon Dioxide 29 mmol/L (22-30); Chloride 101 mmol/L (98-107); Estimated CRCL calculation 16 ml/min; Estimated Glomerular Filt Rate 15; Glucose 323 mg/dL (65-105); Potassium 3.7 mmol/L (3.4-5.0); Sodium 139 mmol/L (137-145)
--- NOTE | 2020-01-14 07:20 | PM.IMPN ---
Progress Note: A&P Assessment and Plan (1) Septic shock: Code(s): A41.9 - Sepsis, unspecified organism; R65.21 - Severe sepsis with septic shock Status: Acute Assessment and Plan: Initially met criteria for severe sepsis on admission. Unfortunately, patient with hypotension on 01/11/2020 requiring placement of central line and starting of Levophed. Now with septic shock criteria met. Blood pressure reviewed on 01/14/2020 and now elevated. Off Levophed since yesterday morning. Blood cultures remain negative thus far. Urine culture negative. MRSA culture negative. On IV cefepime and vancomycin. Also remains on IV sodium bicarb rate. Will continue to monitor closely. (2) Acute respiratory failure: Qualifiers: Respiratory failure complication: hypoxia Qualified Code(s): J96.01 - Acute respiratory failure with hypoxia Code(s): J96.00 - Acute respiratory failure, unspecified whether with hypoxia or hypercapnia Status: Acute Assessment and Plan: Result of influenza A. Remains on ventilator. Sedation stopped yesterday but was unable to wean off ventilator. Patient now on Precedex with dose just decreased. Continue nebulizer treatments and IV antibiotics. Chest xray reviewed today with improvement. Discussed with health and safety coordinator. Hopefully, will be able to extubate today. Continue to monitor. (3) Second degree AV block, Mobitz type II: Code(s): I44.1 - Atrioventricular block, second degree Status: Acute Assessment and Plan: Patient noted to have second-degree AV block on 01/11/2020. Cardiology consulted and appreciate input. Echocardiogram on 01/12/2020 with EF 50-55%, regional wall motion assessment limited due to poor endomyocardial border definition, left ventricular septal wall motion abnormal with septal motion related to bundle branch block, grade 1 diastolic dysfunction, mild bioprosthetic aortic valve stenosis, moderate mitral valve stenosis with mild mitral valve regurgitation and pulmonary hypertension. Patient has previously declined ICD as an outpatient per Cardiology when EF much lower. Avoiding AV junaid blocking agents. Will continue to monitor. (4) Influenza A: Code(s): J10.1 - Influenza due to other identified influenza virus with other respiratory manifestations Status: Acute Assessment and Plan: Positive screen in the emergency room. Will continue Tamiflu to complete 5 days treatment. (5) Diabetes mellitus with ESRD (end-stage renal disease): Code(s): E11.22 - Type 2 diabetes mellitus with diabetic chronic kidney disease; N18.6 - End stage renal disease Status: Acute Assessment and Plan: Hemoglobin A1c 7.3 in February 2019. New hemoglobin A1c 6.2. Home oral medications remain on hold. Glucose reviewed on 01/14/2020 and now 200s-300s but on Nepro tube feedings. With probable extubation soon, will not start scheduled insulin. Continue to monitor. Sliding scale insulin is available if needed. (6) CKD (chronic kidney disease), stage V: Code(s): N18.5 - Chronic kidney disease, stage 5 Status: Acute Assessment and Plan: Nephrology consulted and appreciate input. Creatinine with slight decrease again to 3.10 today. AV fistula maturing in right arm with plan for hemodialysis. Will continue to monitor. (7) Essential hypertension: Code(s): I10 - Essential (primary) hypertension Status: Acute Assessment and Plan: Blood pressure reviewed on 01/14/2020. Now elevated as noted above. Home furosemide, Coreg and losartan still on hold. Will most likely need to restart medication but with hopeful extubation today, will not start just yet. Will monitor. (8) Hypomagnesemia: Code(s): E83.42 - Hypomagnesemia Status: Acute Assessment and Plan: Magnesium stable at 2.0 on 01/13/2020. Will continue to monitor periodically and replace as needed. (9) Chronic systolic hear
--- NOTE | 2020-01-14 07:39 | PM.PNNEP ---
Progress Note: A&P Assessment and Plan (1) CKD (chronic kidney disease), stage V: Code(s): N18.5 - Chronic kidney disease, stage 5 Status: Acute Assessment and Plan: The patient has chronic kidney disease and already has a fistula. She has superimposed acute kidney injury. Her renal function is back to her baseline. No need for dialysis (2) Severe sepsis: Code(s): A41.9 - Sepsis, unspecified organism; R65.20 - Severe sepsis without septic shock Status: Deleted Assessment and Plan: Blood cultures are negative. Urine culture shows E coli. On antibiotics and supportive care. Blood pressures are looking pretty good (3) Acute respiratory failure: Qualifiers: Respiratory failure complication: hypoxia Qualified Code(s): J96.01 - Acute respiratory failure with hypoxia Code(s): J96.00 - Acute respiratory failure, unspecified whether with hypoxia or hypercapnia Status: Acute Assessment and Plan: The patient is intubated. She is on the ventilator (4) Essential hypertension: Code(s): I10 - Essential (primary) hypertension Status: Acute Assessment and Plan: She is off antihypertensives because of her sepsis. (5) Diabetes: Code(s): E11.9 - Type 2 diabetes mellitus without complications Status: Acute Assessment and Plan: . On Accu-Cheks and sliding-scale insulin Sugars running 150-280 Subjective Date/time seen: 01/14/20 07:39 Interval history: Patient wakens a little bit but not enough to converse. On the ventilator still. She is breathing easily. She looks comfortable Review of Systems Review of Systems: ROS unobtainable: unobtainable due to endotracheal tube Exam Narrative: Exam Narrative: Well developed well-nourished in no acute distress Lungs mildly coarse upper airway noise Heart regular without rub or gallop Abdomen bowel sounds positive soft nontender Extremities no edema or cyanosis Skin no rash Objective Data Vital Signs Vital Signs: Vital Signs - 24 hr 01/13/20 08:00 01/13/20 08:43 01/13/20 08:50 Temperature 36.7 C Pulse Rate 72 70 71 Respiratory Rate 13 13 14 Blood Pressure 104/53 L Pulse Oximetry 99 98 01/13/20 10:00 01/13/20 11:20 01/13/20 11:55 Temperature Pulse Rate 74 77 83 Respiratory Rate 13 Blood Pressure 100/49 L Pulse Oximetry 98 96 96 01/13/20 12:00 01/13/20 13:59 01/13/20 14:00 Temperature 37.1 C Pulse Rate 86 75 74 Respiratory Rate 20 13 13 Blood Pressure 102/49 L 104/47 L Pulse Oximetry 94 96 01/13/20 14:05 01/13/20 14:11 01/13/20 16:00 Temperature 36.4 C Pulse Rate 75 73 76 Respiratory Rate 13 16 Blood Pressure 124/51 L Pulse Oximetry 96 96 01/13/20 17:45 01/13/20 18:00 01/13/20 19:32 Temperature Pulse Rate 67 65 66 Respiratory Rate 13 14 Blood Pressure 148/55 H Pulse Oximetry 95 95 01/13/20 19:33 01/13/20 19:40 01/13/20 20:00 Temperature 36.6 C Pulse Rate 65 69 68 Respiratory Rate 14 14 Blood Pressure 145/53 H Pulse Oximetry 99 98 01/13/20 22:00 01/13/20 23:47 01/14/20 00:00 Temperature 36.5 C Pulse Rate 59 L 59 L 60 Respiratory Rate 14 13 Blood Pressure 165/57 H 166/60 H Pulse Oximetry 99 99 100 01/14/20 00:20 01/14/20 01:43 01/14/20 01:44 Temperature Pulse Rate 56 L 65 Respiratory Rate 13 Blood Pressure 153/55 H Pulse Oximetry 93 01/14/20 02:00 01/14/20 04:00 01/14/20 05:01 Temperature 36.3 C L Pulse Rate 59 L 56 L 59 L Respiratory Rate 14 13 Blood Pressure 162/54 H 167/55 H Pulse Oximetry 96 95 95 01/14/20 05:58 01/14/20 06:00 Temperature Pulse Rate 56 L 54 L Respiratory Rate 13 Blood Pressure 178/58 H Pulse Oximetry 95 Intake/Output Intake/Output: Intake & Output 01/11/20 01/12/20 01/13/20 01/14/20 23:59 23:59 23:59 23:59 Intake Total 2279.5 2415.5 2496 731 Output Total 1950 1250 1025 850 Balance 329.5 1165.5 1
[2020-01-14] MEDS: INSULIN ASPART (*BKC) 100 UNITS/ML SUB-Q ×2 (08:25→12:26)
[2020-01-14] MEDS: OSELTAMIVIR PHOSPHATE ORAL SUSP 30 MG/5 ML SYRINGE PO (08:26)
[2020-01-14] MEDS: PANTOPRAZOLE SODIUM IV 40 MG VIAL IV PUSH (08:26)
[2020-01-14] MEDS: TOLNAFTATE 1% POWDER 45 GM BTL 1 APPLIC TOPICAL ×2 (08:27→20:28)
[2020-01-14] MEDS: HEPARIN SODIUM 5,000 UNITS/ML VIAL 5000 UNITS SUB-Q ×2 (08:27→20:28)
--- NOTE | 2020-01-14 11:57 | WPDINTPN ---
Progress Note: A&P Assessment and Plan (1) Septic shock: Code(s): A41.9 - Sepsis, unspecified organism; R65.21 - Severe sepsis with septic shock Status: Acute Assessment and Plan: OFF Levophed since 01/13/2020 - initially admitted on 01/11/2020 with hypotension requiring a central line and Levophed - Continue cefepime and vancomycin, - preliminary blood and urine cultures are negative for - will DC bicarb infusion (2) Acute respiratory failure: Qualifiers: Respiratory failure complication: hypoxia Qualified Code(s): J96.01 - Acute respiratory failure with hypoxia Code(s): J96.00 - Acute respiratory failure, unspecified whether with hypoxia or hypercapnia Status: Acute Assessment and Plan: patient presented with acute respiratory failure: possible COPD exacerbation and/or pneumonia which could have been brought on by influenza A. - chest x-ray reviewed this morning. - continue bronchodilators, no wheezing noted, hold steroids for now - Patient on Precedex, will decrease Precedex infusion so that patient is awake, will place on SBT and evaluate for extubation. (3) Influenza A: Code(s): J10.1 - Influenza due to other identified influenza virus with other respiratory manifestations Status: Acute Assessment and Plan: patient with positive influenza A, started patient on Tamiflu renally dosed (4) Diabetes mellitus with ESRD (end-stage renal disease): Code(s): E11.22 - Type 2 diabetes mellitus with diabetic chronic kidney disease; N18.6 - End stage renal disease Status: Acute Assessment and Plan: Patient has been hyperglycemic, tube feeds on hold for possible extubation. Will continue sliding scale and Accu-Cheks - Hemoglobin A1c 6.2 this admission (5) CKD (chronic kidney disease), stage V: Code(s): N18.5 - Chronic kidney disease, stage 5 Status: Acute Assessment and Plan: acute on chronic kidney disease, could be related to hypotension, septic shock. Patient has a history of stage 5 chronic kidney disease with AV fistula in the right arm. - Nephrology has been consulted, await their input - patient with adequate urine output, creatinine improving - discontinue bicarb infusion (6) Chronic GERD: Code(s): K21.9 - Gastro-esophageal reflux disease without esophagitis Status: Acute Assessment and Plan: continue IV PPI (7) Second degree AV block, Mobitz type II: Code(s): I44.1 - Atrioventricular block, second degree Status: Acute Assessment and Plan: patient developed second-degree AV block Mobitz type 2 this could be multifactorial. 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 Patient also has a history of ischemic cardiomyopathy with severe LV dysfunction. (8) DVT prophylaxis: Code(s): Z29.9 - Encounter for prophylactic measures, unspecified Status: Acute Assessment and Plan: heparin subcu Additional Plan discussed with patient's and updated him with her condition and plan of care. I answered all questions. Code status: Full code Critical care time spent: 32 minutes Due to a high probability of clinically significant, life threatening deterioration, the patient required my highest level of preparedness to intervene emergently and I personally spent this critical care time directly and personally
[2020-01-14 12:25] LABS: Glucose Point of Care 256 (65-105)
[2020-01-14 13:18] LABS: Alveolar/Arterial O2 Gradient 53.3 mmHg; Base Excess ABG 4.7 mEq/l (+/-2.0); Fractional Inspired Oxygen 25 %; HCO3 ABG 28.2 mEq/l (22.0-26.0); Oxygen Saturation ABG 96.8 % (95.0-100.0); PCO2 ABG 37.1 mmHg (35.0-45.0); PO2 ABG 80.9 mmHg (80.0-100.0); PO2 FiO2 Ratio Arterial Blood 3.24 %; pH ABG 7.498 (7.350-7.450)
[2020-01-14 13:19] LABS: Device VENTILATOR; Modified Allen's Test Pass; Site Drawn LEFT RADIAL
[2020-01-14 13:20] LABS: Arterial Blood Gas PEEP 5 cmH2O; Arterial Blood Gas Pressure Support 8 cmH2O; Arterial Blood Gas Vent Mode SPONTANEOUS
[2020-01-14 17:45] LABS: Vancomycin Trough 11.5 ug/mL (10.0-20.0)
[2020-01-14 17:58] LABS: Glucose Point of Care 114 (65-105)
[2020-01-14 21:33] LABS: IFOB Positive Control Positive; Immunochemical Fecal Occult Bl Negative (N)
[2020-01-14] MEDS: hetaSTARCH 6%/NACL 500 ML 250 ML IV CONT (21:41)
[2020-01-14] MEDS: NOREPINEPHRINE 8 MG/D5W 250 ML 8 MG/250 ML BAG 9.4 MG IV CONT (22:37)
[2020-01-14 23:08] LABS: Glucose Point of Care 138 (65-105)
[2020-01-15] VITALS (23 sets, daily range): BP systolic 85–139; BP diastolic 36–66; PULSE 80–115; RESP 2–29; TEMP 36.7–37.5; O2SAT 92–96
[2020-01-15] MEDS: FUROSEMIDE INJ 100 MG/10 ML VIAL 60 MG IV PUSH (02:35)
[2020-01-15] MEDS: ALBUTEROL SULFATE NEB 2.5 MG/0.5 ML INH 5 MG INHALATION ×4 (02:40→19:49)
[2020-01-15] MEDS: IPRATROPIUM BR 0.02% INH SOLN 0.5 MG/2.5 ML VIAL INHALATION ×4 (02:40→19:50)
[2020-01-15 05:34] LABS: Basophils Absolute Auto 0.1 K/mm3 (0.0-0.1); Basophils Percent Auto 0.3 % (0.2-1.2); Eosinophils Absolute Auto 0.3 K/mm3 (0-0.3); Eosinophils Percent Auto 1.7 % (0-4.4); Hematocrit 25.8 % (37.0-47.0); Hemoglobin 7.6 g/dL (12.0-15.0); Immature Granulocyte Absolute 0.09 K/mm3 (0.00-0.031); Immature Granulocyte Percent A 0.5 % (0-0.5); Lymphocytes Absolute Auto 1.46 K/mm3 (0.9-3.2); Lymphocytes Percent Auto 8.2 % (18.3-44.2); Mean Corpuscular HGB Conc 29.5 g/dl (32-36); Mean Corpuscular Hemoglobin 28.4 pg (26-34); Mean Corpuscular Volume 96.3 fl (80-100); Mean Platelet Volume 11.1 fl (7.4-10.4); Monocytes Absolute Auto 0.9 K/mm3 (0.1-0.6); Neutrophils Absolute Auto 15.1 K/mm3 (1.3-6.7); Neutrophils Percent Auto 84.3 % (45.5-73.1); Platelet Count Result 250 k/mm3 (150-375); Red Blood Count 2.68 M/mm3 (4.2-5.4); Red Cell Distribution Width 14.6 % (11.5-14.5); White Blood Count 17.9 K/mm3 (4.5-10.0)
[2020-01-15 05:44] LABS: Blood Urea Nitrogen 34 mg/dL (7-17); Calcium 7.9 mg/dL (8.4-10.2); Carbon Dioxide 29 mmol/L (22-30); Chloride 98 mmol/L (98-107); Estimated CRCL calculation 16 ml/min; Estimated Glomerular Filt Rate 14; Glucose 216 mg/dL (65-105); Magnesium 1.9 mg/dL (1.6-2.3); Phosphorus 4.4 mg/dL (2.5-4.5); Potassium 3.9 mmol/L (3.4-5.0); Sodium 140 mmol/L (137-145)
[2020-01-15 06:21] LABS: Base Excess ABG 4.7 mEq/l (+/-2.0); HCO3 ABG 26.8 mEq/l (22.0-26.0); PCO2 ABG 31.4 mmHg (35.0-45.0); PO2 ABG 62.3 mmHg (80.0-100.0); pH ABG 7.549 (7.350-7.450)
[2020-01-15 06:22] LABS: Oxygen Saturation ABG 94.6 % (95.0-100.0); Total Hemoglobin 11.1 g/dL (12.0-18.0)
[2020-01-15 06:23] LABS: Alveolar/Arterial O2 Gradient 78.7 mmHg; Carboxyhemoglobin 0.3 % THb (0-2.0); Methemoglobin ABG 0.3 %THb (0-1.5); Oxygen Content ABG 14.3 %vol (16.0-22.0); Oxyhemoglobin 91.5 % THb (90.0-100.0); Reduced Hemoglobin 7.9 %THb (0-5.0)
[2020-01-15 06:24] LABS: Device VENTILATOR; Fractional Inspired Oxygen 25 %; Modified Allen's Test Pass; PO2 FiO2 Ratio Arterial Blood 2.49 %; Site Drawn RIGHT RADIAL
[2020-01-15 06:28] LABS: Arterial Blood Gas PEEP 5 cmH2O; Arterial Blood Gas Vent Mode ASV
[2020-01-15] MEDS: INSULIN ASPART (*BKC) 100 UNITS/ML SUB-Q (06:52)
[2020-01-15 08:09] LABS: Hypochromasia 1+ (NORMAL); Ovalocytes 1+ (NORMAL); Platelet Estimate Adequate (Adequate)
--- NOTE | 2020-01-15 08:36 | WPDINTPN ---
Progress Note: A&P Assessment and Plan (1) Septic shock: Code(s): A41.9 - Sepsis, unspecified organism; R65.21 - Severe sepsis with septic shock Status: Acute Assessment and Plan: 01/14/2020: patient had to be restarted on Levophed at night - initially admitted on 01/11/2020 with hypotension requiring a central line and Levophed - Continue cefepime and vancomycin, - will check UA - preliminary blood and urine cultures are negative for - now on Levophed, will maintain systolic blood pressure > 100 mmHg (2) Acute respiratory failure: Qualifiers: Respiratory failure complication: hypoxia Qualified Code(s): J96.01 - Acute respiratory failure with hypoxia Code(s): J96.00 - Acute respiratory failure, unspecified whether with hypoxia or hypercapnia Status: Acute Assessment and Plan: patient extubated on 01/14/2020 - on admission,patient presented with acute respiratory failure: possible COPD exacerbation and/or pneumonia which could have been brought on by influenza A. - chest x-ray reviewed this morning. - continue bronchodilators, - . (3) Influenza A: Code(s): J10.1 - Influenza due to other identified influenza virus with other respiratory manifestations Status: Acute Assessment and Plan: patient with positive influenza A, started patient on Tamiflu renally dosed (4) Diabetes mellitus with ESRD (end-stage renal disease): Code(s): E11.22 - Type 2 diabetes mellitus with diabetic chronic kidney disease; N18.6 - End stage renal disease Status: Acute Assessment and Plan: blood sugars are better, Will continue sliding scale and Accu-Cheks - Hemoglobin A1c 6.2 this admission (5) CKD (chronic kidney disease), stage V: Code(s): N18.5 - Chronic kidney disease, stage 5 Status: Acute Assessment and Plan: acute on chronic kidney disease, could be related to hypotension, septic shock. Patient has a history of stage 5 chronic kidney disease with AV fistula in the right arm. - appreciate nephrology following the patient - patient with adequate urine output, creatinine improving (6) Chronic GERD: Code(s): K21.9 - Gastro-esophageal reflux disease without esophagitis Status: Acute Assessment and Plan: continue IV PPI (7) Second degree AV block, Mobitz type II: Code(s): I44.1 - Atrioventricular block, second degree Status: Acute Assessment and Plan: patient developed second-degree AV block Mobitz type 2 this could be multifactorial. 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 Patient also has a history of ischemic cardiomyopathy with severe LV dysfunction. (8) DVT prophylaxis: Code(s): Z29.9 - Encounter for prophylactic measures, unspecified Status: Acute Assessment and Plan: heparin subcu Additional Plan discussed with patient's and updated him with her condition and plan of care. I answered all questions. . Speech therapy to see patient for swallow test Code status: Full code Critical care time spent: 32 minutes Due to a high probability of clinically significant, life threatening deterioration, the patient required my highest level of preparedness to intervene emergently and I personally spent this critical care time directly and personally managing the patient. This critical care time included
--- NOTE | 2020-01-15 08:39 | PM.IMPN ---
Progress Note: A&P Assessment and Plan (1) Septic shock: Code(s): A41.9 - Sepsis, unspecified organism; R65.21 - Severe sepsis with septic shock Status: Acute Assessment and Plan: Initially met criteria for severe sepsis on admission. Unfortunately, patient with hypotension on 01/11/2020 requiring placement of central line and starting of Levophed. Now with septic shock criteria met. Levophed restarted last night. Blood pressure reviewed on 01/15/2020 and once again stable. Wean Levophed as blood pressure tolerates. Blood cultures remain negative to date. Urine culture negative. MRSA culture negative. WBC increased to 17.9 today. Will continue IV cefepime and vancomycin. Off IV fluids. Will continue to monitor closely. Discussed with paleobotanist. (2) Acute respiratory failure: Qualifiers: Respiratory failure complication: hypoxia Qualified Code(s): J96.01 - Acute respiratory failure with hypoxia Code(s): J96.00 - Acute respiratory failure, unspecified whether with hypoxia or hypercapnia Status: Acute Assessment and Plan: Result of influenza A. Successfully extubated on 01/14/2020. Now on oxygen by Ventimask at 35% as mouth breather remains on ventilator. Continue nebulizer treatments and IV antibiotics. (3) Influenza A: Code(s): J10.1 - Influenza due to other identified influenza virus with other respiratory manifestations Status: Acute Assessment and Plan: Positive screen in the emergency room. Will continue Tamiflu to complete 5 days treatment. (4) Second degree AV block, Mobitz type II: Code(s): I44.1 - Atrioventricular block, second degree Status: Acute Assessment and Plan: Patient noted to have second-degree AV block on 01/11/2020. Cardiology consulted and appreciate input. Echocardiogram on 01/12/2020 with EF 50-55%, regional wall motion assessment limited due to poor endomyocardial border definition, left ventricular septal wall motion abnormal with septal motion related to bundle branch block, grade 1 diastolic dysfunction, mild bioprosthetic aortic valve stenosis, moderate mitral valve stenosis with mild mitral valve regurgitation and pulmonary hypertension. Patient has previously declined ICD as an outpatient per Cardiology when EF much lower. Continue to avoid AV junaid blocking agents. Will continue to monitor. (5) Diabetes mellitus with ESRD (end-stage renal disease): Code(s): E11.22 - Type 2 diabetes mellitus with diabetic chronic kidney disease; N18.6 - End stage renal disease Status: Acute Assessment and Plan: Hemoglobin A1c 7.3 in February 2019. New hemoglobin A1c 6.2. Home oral medications remain on hold. Glucose reviewed on 01/15/2020. Glucose levels elevated yesterday but now improving. Sliding scale insulin remains available if needed. Will continue to monitor. (6) CKD (chronic kidney disease), stage V: Code(s): N18.5 - Chronic kidney disease, stage 5 Status: Acute Assessment and Plan: Nephrology consulted and appreciate input. Creatinine 3.20 today and within baseline. AV fistula maturing in right arm with plan for eventual hemodialysis. Will continue to monitor. (7) Essential hypertension: Code(s): I10 - Essential (primary) hypertension Status: Acute Assessment and Plan: Blood pressure reviewed on 01/15/2020 as noted above. Home furosemide, Coreg and losartan still on hold. Continue to monitor. (8) Hypomagnesemia: Code(s): E83.42 - Hypomagnesemia Status: Acute Assessment and Plan: Magnesium 1.9 today. Will continue to monitor periodically and replace as needed. (9) Chronic systolic heart failure: Code(s): I50.22 - Chronic systolic (congestive) heart failure Status: Acute Assessment and Plan: Stable without present decompensation. Echocardiogram on 01/12/2020 as noted above. Furosemid, losartan and Coreg on h
[2020-01-15] MEDS: HEPARIN SODIUM 5,000 UNITS/ML VIAL 5000 UNITS SUB-Q ×2 (08:51→20:10)
[2020-01-15] MEDS: PANTOPRAZOLE SODIUM IV 40 MG VIAL IV PUSH (08:53)
[2020-01-15] MEDS: TOLNAFTATE 1% POWDER 45 GM BTL 1 APPLIC TOPICAL ×2 (08:53→20:11)
[2020-01-15 09:13] LABS: Add Urine Microscopic? YES; Appearance Urine Clear (Clear); Bacteria Urine Trace /hpf; Bilirubin Urine Negative (Negative); Blood Urine 2+ (Negative); Color Urine Colorless (Yellow); Glucose Urine UA 1+ mg/dL (Negative); Ketones Urine Negative (Negative); Leukocyte Esterase Ur Trace LEU/UL (Negative); Mucus Urine Rare /lpf; Nitrate Urine Negative (Negative); Protein Urine Negative (Negative); Specific Grav Ur 1.009 (1.001-1.035); Squamous Epithelial Cell Urine Rare /hpf (Few); Urobilinogen Urine Negative mg/dL (<2.0)
--- NOTE | 2020-01-15 10:52 | PM.PNCARD ---
Progress Note: A&P Assessment and Plan (1) Second degree AV block, Mobitz type II: Code(s): I44.1 - Atrioventricular block, second degree Status: Acute Assessment and Plan: Transient and episodic second-degree AV block Mobitz type 2. No further AV block noted. Continue to avoid AV junaid blocking agents. Echocardiogram 01/12/2020: 1. Technically difficult study with limited views. Regional wall motion assessment limited due to poor endomyocardial border definition. 2. Left ventricular systolic function is mildly reduced, estimated at 50-55%. 3. There is moderately increased left ventricular wall thickness. 4. Left ventricular septal wall motion is abnormal with septal motion related to bundle branch block. 5. The left ventricular diastolic function is grade I diastolic dysfunction. 6. E/e' 53.5 is severely elevated. 7. Global longitudinal strain is moderately elevated at -11 %. 8. Left atrial chamber dimension is moderately enlarged. 9. There is at least mild bioprosthetic aortic valve stenosis abnormal gradients with a peak velocity of 352 cm/s, mean gradient of 24 mmHg, and aortic valve area of 1.4 cm2. 10. There is trace regurgitation of the not well visualized prosthetic aortic valve. 11. The mitral valve has thickened leaflets and calcified leaflets. 12. There is moderate mitral valve stenosis. 13. There is mild mitral valve regurgitation. 14. The mitral valve annulus is severely calcified. 15. There is mild tricuspid valve regurgitation. 16. Moderate pulmonary hypertension, estimated pulmonary arterial systolic pressure is 51 mmHg. 17. Dilated inferior vena cava with no collapse upon inspiration consistent with significantly elevated right atrial pressure, 15 mmHg. (2) Acute respiratory failure: Qualifiers: Respiratory failure complication: hypoxia Qualified Code(s): J96.01 - Acute respiratory failure with hypoxia Code(s): J96.00 - Acute respiratory failure, unspecified whether with hypoxia or hypercapnia Status: Acute Assessment and Plan: Extubated 01/14/2020. Nasal cannula at 1 L/min. Will have swallow study this afternoon. (3) Influenza A: Code(s): J10.1 - Influenza due to other identified influenza virus with other respiratory manifestations Status: Acute Assessment and Plan: Management per management architect. 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 (5) Ischemic cardiomyopathy: Code(s): I25.5 - Ischemic cardiomyopathy Status: Acute Assessment and Plan: Echo as above. (6) Severe sepsis: Code(s): A41.9 - Sepsis, unspecified organism; R65.20 - Severe sepsis without septic shock Status: Deleted Assessment and Plan: Back on Levophed last night. Management per (7) S/P CABG x 3: Code(s): Z95.1 - Presence of aortocoronary bypass graft Status: Acute Assessment and Plan: No ischemic symptoms (8) Chronic systolic heart failure: Code(s): I50.22 - Chronic systolic (congestive) heart failure Status: Acute Assessment and Plan: Echo as above. Avoid restarting AV junaid blocking agents. (9) History of aortic valve replacement with bioprosthetic valve: Code(s): Z95.3 - Presence of xenogenic heart valve Status: Acute
--- NOTE | 2020-01-15 11:02 | PCDIET ---
ICU Rounding Note: Patient extubated on nasal cannula. Plan for swallow study today. Last recorded weight is 83.4kg which is increased. +I/O since last review. Bowel Motility: +BM today, liquid. Labs Reviewed: Glu (216), BUN (34), Cr (3.2), Ca (7.9), Hgb (7.6), Hct (25.8) Meds Noted: Albuterol, Cefepime, Novolog, Levophed, Protonix, Vancomycin, s/p Lasix Additional Notes: Recommend obtaining albumin level for calcium correction. If able to safely advance diet, recommend diabetic, low sodium for most liberal option. Following daily in ICU rounds. Will reassess tomorrow, as scheduled.
[2020-01-15] MEDS: MIDODRINE HCL 10 MG TABLET PO ×2 (12:21→17:43)
[2020-01-15 12:32] LABS: Glucose Point of Care 147 (65-105)
--- NOTE | 2020-01-15 13:42 | PCSTNOTE ---
Therapy received order for MBS on 01/15/20 however Radiology has not yet received the order. This test will be completed 01/16/20.
--- NOTE | 2020-01-15 17:00 | PM.PNNEP ---
Progress Note: A&P Assessment and Plan (1) CKD (chronic kidney disease), stage V: Code(s): N18.5 - Chronic kidney disease, stage 5 Status: Acute Assessment and Plan: The patient has chronic kidney disease and already has a fistula. She has superimposed acute kidney injury. Renal function sufficient. (2) Severe sepsis: Code(s): A41.9 - Sepsis, unspecified organism; R65.20 - Severe sepsis without septic shock Status: Deleted Assessment and Plan: Blood cultures are negative. Urine culture shows E coli. On antibiotics and supportive care. Blood pressures are looking pretty good (3) Acute respiratory failure: Qualifiers: Respiratory failure complication: hypoxia Qualified Code(s): J96.01 - Acute respiratory failure with hypoxia Code(s): J96.00 - Acute respiratory failure, unspecified whether with hypoxia or hypercapnia Status: Acute Assessment and Plan: Improved. On 35% FiO2 (4) Essential hypertension: Code(s): I10 - Essential (primary) hypertension Status: Acute Assessment and Plan: She is off antihypertensives because of her sepsis. She is on midodrine. (5) Diabetes: Code(s): E11.9 - Type 2 diabetes mellitus without complications Status: Acute Assessment and Plan: . On Accu-Cheks and sliding-scale insulin Sugars running 110-260 Subjective Date/time seen: 01/15/20 17:00 Interval history: Patient wakens a little bit but not enough to converse. Extubated. She is breathing easily. She looks comfortable Review of Systems Review of Systems: ROS unobtainable: unobtainable due to endotracheal tube Exam Narrative: Exam Narrative: Well developed well-nourished in no acute distress Lungs mildly coarse upper airway noise Heart regular without rub or gallop Abdomen BS+ soft nontender Extremities no edema Skin no rash or subcu nodules Objective Data Vital Signs Vital Signs: Vital Signs - 24 hr 01/14/20 18:00 01/14/20 19:20 01/14/20 20:00 Temperature 36.6 C Pulse Rate 93 92 85 Respiratory Rate 20 18 22 H Blood Pressure 99/45 L 99/50 L 102/54 L Pulse Oximetry 92 95 93 01/14/20 21:29 01/14/20 21:39 01/14/20 22:00 Temperature Pulse Rate 89 114 H 89 Respiratory Rate 23 H 22 H 20 Blood Pressure 101/45 L Pulse Oximetry 95 01/15/20 00:00 01/15/20 01:11 01/15/20 02:00 Temperature 36.9 C Pulse Rate 98 111 H Respiratory Rate 26 H 26 H Blood Pressure 115/46 L 116/53 L Pulse Oximetry 93 92 92 01/15/20 02:42 01/15/20 02:52 01/15/20 03:47 Temperature 37.1 C Pulse Rate 111 H 115 H 101 H Respiratory Rate 22 H 22 H 26 H Blood Pressure 118/51 L Pulse Oximetry 95 01/15/20 04:00 01/15/20 06:00 01/15/20 08:00 Temperature 36.9 C Pulse Rate 97 93 88 Respiratory Rate 29 H 27 H Blood Pressure 118/44 L 105/43 L Pulse Oximetry 95 96 01/15/20 09:45 01/15/20 10:00 01/15/20 11:36 Temperature 36.8 C 37.4 C Pulse Rate 91 98 90 Respiratory Rate 2 L 19 18 Blood Pressure 105/41 L 99/44 L Pulse Oximetry 93 94 01/15/20 12:00 01/15/20 13:57 01/15/20 14:00 Temperature 36.7 C Pulse Rate 92 90 89 Respiratory Rate 29 H Blood Pressure 85/66 L Pulse Oximetry 92 01/15/20 15:51 01/15/20 15:59 01/15/20 16:00 Temperature 37.5 C Pulse Rate 88 85 87 Respiratory Rate 24 H 20 16 Blood Pressure 97/36 L Pulse Oximetry 92 Intake/Output Intake/Output: Intake & Output 01/12/20 01/13/20 01/14/20 01/15/20 23:59 23:59 23:59 23:59 Intake Total 2415.5 2496 1392.8 50 Output Total 1250 1025 1400 1490 Balance 1165.5 1471 -7.2 -1440 Meds/Results Medications: Active Medications Generic Name Dose Route Start Last Admin Trade Name Freq PRN Reason Stop Dose Admin Albuterol 5 mg 01/10/20 20:00 01/15/20 15:50 Albuterol Sulf Neb 2.5mg/0.5ml INHALATION 5 mg Q6HRT CYNTHIA Administration Dextrose 12.5 gm 01/10/20 19:11 01/11/20 05:
[2020-01-15 17:54] LABS: Glucose Point of Care 145 (65-105)
[2020-01-15 23:55] LABS: Glucose Point of Care 141 (65-105)
[2020-01-16] VITALS (22 sets, daily range): BP systolic 101–147; BP diastolic 38–127; PULSE 80–99; RESP 17–30; TEMP 36.5–37.1; O2SAT 88–99
[2020-01-16] MEDS: ALBUTEROL SULFATE NEB 2.5 MG/0.5 ML INH 5 MG INHALATION ×4 (01:59→21:54)
[2020-01-16] MEDS: IPRATROPIUM BR 0.02% INH SOLN 0.5 MG/2.5 ML VIAL INHALATION ×4 (01:59→21:55)
[2020-01-16 04:43] LABS: Basophils Absolute Auto 0.1 K/mm3 (0.0-0.1); Basophils Percent Auto 0.6 % (0.2-1.2); Eosinophils Absolute Auto 0.7 K/mm3 (0-0.3); Hematocrit 24.7 % (37.0-47.0); Hemoglobin 7.4 g/dL (12.0-15.0); Immature Granulocyte Absolute 0.06 K/mm3 (0.00-0.031); Immature Granulocyte Percent A 0.4 % (0-0.5); Lymphocytes Absolute Auto 2.42 K/mm3 (0.9-3.2); Lymphocytes Percent Auto 17.8 % (18.3-44.2); Mean Corpuscular Hemoglobin 28.9 pg (26-34); Mean Corpuscular Volume 96.5 fl (80-100); Mean Platelet Volume 11.2 fl (7.4-10.4); Monocytes Absolute Auto 0.9 K/mm3 (0.1-0.6); Monocytes Percent Auto 6.4 % (2.6-8.5); Neutrophils Absolute Auto 9.5 K/mm3 (1.3-6.7); Neutrophils Percent Auto 69.8 % (45.5-73.1); Platelet Count Result 256 k/mm3 (150-375); Red Blood Count 2.56 M/mm3 (4.2-5.4); Red Cell Distribution Width 14.6 % (11.5-14.5); White Blood Count 13.6 K/mm3 (4.5-10.0)
[2020-01-16 05:04] LABS: Blood Urea Nitrogen 39 mg/dL (7-17); Calcium 7.7 mg/dL (8.4-10.2); Carbon Dioxide 31 mmol/L (22-30); Chloride 101 mmol/L (98-107); Estimated CRCL calculation 15 ml/min; Estimated Glomerular Filt Rate 13; Glucose 134 mg/dL (65-105); Phosphorus 4.5 mg/dL (2.5-4.5); Potassium 3.8 mmol/L (3.4-5.0); Sodium 140 mmol/L (137-145)
[2020-01-16 06:06] LABS: Glucose Point of Care 122 (65-105)
--- NOTE | 2020-01-16 07:29 | PM.PNNEP ---
Progress Note: A&P Assessment and Plan (1) CKD (chronic kidney disease), stage V: Code(s): N18.5 - Chronic kidney disease, stage 5 Status: Acute Assessment and Plan: The patient has chronic kidney disease and already has a fistula. Acute component has resolved. Renal function sufficient for now. She has a fistula which is working well. Eventually she will need to start dialysis but I think were okay for now. (2) Severe sepsis: Code(s): A41.9 - Sepsis, unspecified organism; R65.20 - Severe sepsis without septic shock Status: Deleted Assessment and Plan: Blood cultures are negative. Urine culture shows E coli. On antibiotics and supportive care. Septic picture is resolved. (3) Acute respiratory failure: Qualifiers: Respiratory failure complication: hypoxia Qualified Code(s): J96.01 - Acute respiratory failure with hypoxia Code(s): J96.00 - Acute respiratory failure, unspecified whether with hypoxia or hypercapnia Status: Acute Assessment and Plan: Improved. On nasal cannula (4) Essential hypertension: Code(s): I10 - Essential (primary) hypertension Status: Acute Assessment and Plan: She is off antihypertensives because of her sepsis. She is on midodrine. (5) Diabetes: Code(s): E11.9 - Type 2 diabetes mellitus without complications Status: Acute Assessment and Plan: . On Accu-Cheks and sliding-scale insulin Sugars up and down. Subjective Date/time seen: 01/16/20 07:29 Interval history: Patient is more alert today. On nasal cannula oxygen. She is eager to eat. However she is getting swallowing checked out today. She wants to get up into a chair. Physical therapy is on the way. Review of Systems Review of Systems: ROS unobtainable: unobtainable due to endotracheal tube Exam Narrative: Exam Narrative: Well developed well-nourished in no acute distress Lungs fairly clear Heart regular without rub or gallop Abdomen BS+ soft nontender Extremities no edema Skin no rash Objective Data Vital Signs Vital Signs: Vital Signs - 24 hr 01/15/20 08:00 01/15/20 09:45 01/15/20 10:00 Temperature 36.9 C 36.8 C Pulse Rate 88 91 98 Respiratory Rate 27 H 2 L 19 Blood Pressure 105/43 L 105/41 L Pulse Oximetry 96 93 01/15/20 11:36 01/15/20 12:00 01/15/20 13:57 Temperature 37.4 C 36.7 C Pulse Rate 90 92 90 Respiratory Rate 18 29 H Blood Pressure 99/44 L 85/66 L Pulse Oximetry 94 92 01/15/20 14:00 01/15/20 15:51 01/15/20 15:59 Temperature Pulse Rate 89 88 85 Respiratory Rate 24 H 20 Blood Pressure Pulse Oximetry 01/15/20 16:00 01/15/20 18:00 01/15/20 19:50 Temperature 37.5 C 37.5 C Pulse Rate 87 84 80 Respiratory Rate 16 21 H 18 Blood Pressure 97/36 L 103/40 L Pulse Oximetry 92 95 01/15/20 19:55 01/15/20 20:00 01/15/20 22:00 Temperature 37.1 C 36.9 C Pulse Rate 80 89 80 Respiratory Rate 18 18 25 H Blood Pressure 122/48 L 139/54 L Pulse Oximetry 93 94 01/16/20 00:00 01/16/20 01:59 01/16/20 02:00 Temperature 36.7 C 36.9 C Pulse Rate 80 83 84 Respiratory Rate 25 H 20 29 H Blood Pressure 106/43 L 129/49 L Pulse Oximetry 93 94 01/16/20 02:05 01/16/20 04:00 01/16/20 06:00 Temperature 36.7 C 36.8 C Pulse Rate 80 80 82 Respiratory Rate 20 19 26 H Blood Pressure 109/51 L 102/38 L Pulse Oximetry 95 91 Intake/Output Intake/Output: Intake & Output 01/13/20 01/14/20 01/15/20 01/16/20 23:59 23:59 23:59 23:59 Intake Total 2496 1392.8 149.2 17.4 Output Total 1025 1400 1490 500 Balance 1471 -7.2 -1340.8 -482.6 Meds/Results Medications: Active Medications Generic Name Dose Route Start Last Admin Trade Name Freq PRN Reason Stop Dose Admin Albuterol 5 mg 01/10/20 20:00 01/16/20 01:59 Albuterol Sulf Neb 2.5mg/0.5ml INHALATION 5 mg Q6HRT CYNTHIA Administration Dextrose 12.5 gm 01/10/20 19:11 01/11/20 05:33
[2020-01-16] MEDS: PANTOPRAZOLE SODIUM IV 40 MG VIAL IV PUSH (08:02)
[2020-01-16] MEDS: TOLNAFTATE 1% POWDER 45 GM BTL 1 APPLIC TOPICAL ×2 (08:03→21:47)
[2020-01-16] MEDS: HEPARIN SODIUM 5,000 UNITS/ML VIAL 5000 UNITS SUB-Q ×2 (08:03→21:46)
--- NOTE | 2020-01-16 09:02 | PM.IMPN ---
Progress Note: A&P Assessment and Plan (1) Septic shock: Code(s): A41.9 - Sepsis, unspecified organism; R65.21 - Severe sepsis with septic shock Status: Acute Assessment and Plan: Patient met criteria for severe sepsis on admission with condition worsening to developing spetic shock on 01/11/2020 requiring placement of central line and starting of Levophed. Levophed off but resumed 01/14 but able to come off again last night. BP reviewed on 01/16/2020 and remaining stable of the Levophed. Blood and urine cultures negative. MRSA culture negative. WBC down to 13.6K today. Will continue IV cefepime and vancomycin. Off IV fluids. Will continue to monitor closely. Discussed with die cutter apprentice. Okay to move out if remains stable today. (2) Acute respiratory failure: Qualifiers: Respiratory failure complication: hypoxia Qualified Code(s): J96.01 - Acute respiratory failure with hypoxia Code(s): J96.00 - Acute respiratory failure, unspecified whether with hypoxia or hypercapnia Status: Acute Assessment and Plan: Result of influenza A. Successfully extubated on 01/14/2020. Now on oxygen via nasal cannula. Continue nebulizer treatments and IV antibiotics. Wean o2 as tolerated. (3) Influenza A: Code(s): J10.1 - Influenza due to other identified influenza virus with other respiratory manifestations Status: Acute Assessment and Plan: Positive screen in the emergency room. Treated with Tamiflu renally dosed to complete a treatment course. (4) Second degree AV block, Mobitz type II: Code(s): I44.1 - Atrioventricular block, second degree Status: Acute Assessment and Plan: Patient noted to have second-degree AV block on 01/11/2020. Cardiology consulted and appreciate input. Echo on 01/12/2020 with EF 50-55%, regional wall motion assessment limited due to poor endomyocardial border definition, left ventricular septal wall motion abnormal with septal motion related to bundle branch block, grade 1 diastolic dysfunction, mild bioprosthetic aortic valve stenosis, moderate mitral valve stenosis with mild mitral valve regurgitation and pulmonary hypertension. Patient has previously declined ICD as an outpatient per Cardiology when EF much lower. No obvious recurrence by tele. Continue to avoid AV junaid blocking agents. Will continue to monitor on tele. May need to hold Coreg indefinitely (5) Diabetes mellitus with ESRD (end-stage renal disease): Code(s): E11.22 - Type 2 diabetes mellitus with diabetic chronic kidney disease; N18.6 - End stage renal disease Status: Acute Assessment and Plan: A1c 6.2. Glucose reviewed on 01/16/2020. Glucose levels more elevated possibly related to improved oral intake. Sliding scale insulin remains available if needed. Will continue to monitor. (6) CKD (chronic kidney disease), stage V: Code(s): N18.5 - Chronic kidney disease, stage 5 Status: Acute Assessment and Plan: Nephrology consulted and appreciate input. Creatinine 3.5 today and within baseline. Overall, her Cr is better then on admission. AV fistula maturing in right arm with plan for eventual hemodialysis. Will continue to monitor. (7) Essential hypertension: Code(s): I10 - Essential (primary) hypertension Status: Acute Assessment and Plan: Blood pressure reviewed on 01/16/2020. BP more stable and able to be off the Levophed overnight. Home furosemide, Coreg and losartan still on hold. Continue to monitor. (8) Hypomagnesemia: Code(s): E83.42 - Hypomagnesemia Status: Acute Assessment and Plan: Magnesium 2 today. Will continue to monitor periodically and replace as needed. (9) Chronic systolic heart failure: Code(s): I50.22 - Chronic systolic (congestive) heart failure Status: Acute Assessment and Plan: Stable without present decompensat
[2020-01-16] MEDS: MIDODRINE HCL 10 MG TABLET PO ×3 (10:22→17:06)
[2020-01-16 10:53] LABS: Iron 25 ug/dL (37-170)
[2020-01-16 11:03] LABS: Percent Iron Saturation 11 % (20-50)
--- NOTE | 2020-01-16 11:28 | PCDIET ---
Nutrition Follow-Up Complete: Nutrition Diagnosis: Inadequate oral intake r/t NPO status as evidence by intubation, need for EN Nutrition Goal: Initiation and tolerate EN Goal no longer applicable. Patient extubated and had MBS this morning. Diet has been advanced to diabetic with mildly thick liquids. Last recorded weight is 83.8 kg which is stable. Bowel Motility: No documented bowel movements. Labs Reviewed: Glu (134), BUN (39), Cr (3.5), Ca (7.7), Hgb (7.4), Hct (24.7) Meds Noted: Albuterol, Novolog, Levophed, Protonix, Cefepime, Midodrine, Vancomycin Additional Notes: Buttock macerated; left knee abrasion. Recommend adding medication for bowel movement, if medically appropriate. Will monitor intakes on advanced diet and provide further recommendations as needed. New goal: Patient to consume 50% of meals or greater. Nutrition Monitoring and Evaluation: Follow up every 3 days.
--- NOTE | 2020-01-16 12:14 | WPDINTPN ---
Progress Note: A&P Assessment and Plan (1) Septic shock: Code(s): A41.9 - Sepsis, unspecified organism; R65.21 - Severe sepsis with septic shock Status: Acute Assessment and Plan: RESOLVED: PATIENT OFF LEVOPHED - initially admitted on 01/11/2020 with hypotension requiring a central line and Levophed - Continue cefepime and vancomycin, - preliminary blood and urine cultures are negative (2) Acute respiratory failure: Qualifiers: Respiratory failure complication: hypoxia Qualified Code(s): J96.01 - Acute respiratory failure with hypoxia Code(s): J96.00 - Acute respiratory failure, unspecified whether with hypoxia or hypercapnia Status: Acute Assessment and Plan: patient extubated on 01/14/2020 - on admission,patient presented with acute respiratory failure: possible COPD exacerbation and/or pneumonia which could have been brought on by influenza A. - chest x-ray reviewed this morning. - continue bronchodilators and antibiotics (3) Influenza A: Code(s): J10.1 - Influenza due to other identified influenza virus with other respiratory manifestations Status: Acute Assessment and Plan: patient with positive influenza A, status post Tamiflu (4) Diabetes mellitus with ESRD (end-stage renal disease): Code(s): E11.22 - Type 2 diabetes mellitus with diabetic chronic kidney disease; N18.6 - End stage renal disease Status: Acute Assessment and Plan: blood sugars are better, Will continue sliding scale and Accu-Cheks - Hemoglobin A1c 6.2 this admission (5) CKD (chronic kidney disease), stage V: Code(s): N18.5 - Chronic kidney disease, stage 5 Status: Acute Assessment and Plan: acute on chronic kidney disease, could be related to hypotension, septic shock. Patient has a history of stage 5 chronic kidney disease with AV fistula in the right arm. - appreciate nephrology following the patient - patient with adequate urine output, creatinine stable (6) Chronic GERD: Code(s): K21.9 - Gastro-esophageal reflux disease without esophagitis Status: Acute Assessment and Plan: continue IV PPI (7) Second degree AV block, Mobitz type II: Code(s): I44.1 - Atrioventricular block, second degree Status: Acute Assessment and Plan: RESOLVED: - patient developed second-degree AV block Mobitz type 2 this could be multifactorial. 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 Patient also has a history of ischemic cardiomyopathy with severe LV dysfunction. (8) DVT prophylaxis: Code(s): Z29.9 - Encounter for prophylactic measures, unspecified Status: Acute Assessment and Plan: heparin subcu Additional Plan Discussed with patient and her and updated them with her plan of care. She did pass a modified barium swallow test and will start diet today Code status: Full code Critical care time spent: 32 minutes Due to a high probability of clinically significant, life threatening deterioration, the patient required my highest level of preparedness to intervene emergently and I personally spent this critical care time directly and personally managing the patient. This critical care time included obtaining a history; examining the patient; pulse oximetry; ordering and review of studies; arranging urgent treatment with development of
[2020-01-16 12:25] LABS: Glucose Point of Care 183 (65-105)
[2020-01-16] MEDS: ASPIRIN 81 MG ENTERIC TABLET PO (12:28)
[2020-01-16] MEDS: MULTIVITAMINS THERAPEUTIC TAB (*BKC) 1 TABLET PO (12:28)
[2020-01-16] MEDS: ATORVASTATIN 20 MG TABLET PO (12:28)
--- NOTE | 2020-01-16 13:29 | PCSTNOTE ---
Please refer to the Modified Barium Swallow Evaluation in the EMR.
[2020-01-16 17:22] LABS: Glucose Point of Care 164 (65-105)
[2020-01-16] MEDS: SENNA/DOCUSATE SODIUM TABLET 1 TAB PO (21:46)
[2020-01-16] MEDS: MONTELUKAST SODIUM 10 MG TABLET PO (21:47)
[2020-01-16] MEDS: TRAZODONE HCL 50 MG TABLET PO (21:48)
[2020-01-16 22:00] LABS: Glucose Point of Care 208 (65-105)
[2020-01-17] VITALS (24 sets, daily range): BP systolic 91–149; BP diastolic 48–82; PULSE 79–101; RESP 15–29; TEMP 36.4–37.1; O2SAT 87–98
[2020-01-17] MEDS: ALBUTEROL SULFATE NEB 2.5 MG/0.5 ML INH 5 MG INHALATION ×4 (01:30→20:06)
[2020-01-17] MEDS: IPRATROPIUM BR 0.02% INH SOLN 0.5 MG/2.5 ML VIAL INHALATION ×4 (01:30→20:06)
[2020-01-17 05:07] LABS: Mean Corpuscular HGB Conc 29.2 g/dl (32-36); Mean Corpuscular Hemoglobin 28.5 pg (26-34); Mean Corpuscular Volume 97.6 fl (80-100); Mean Platelet Volume 11.2 fl (7.4-10.4); Platelet Count Result 268 k/mm3 (150-375); Red Blood Count 2.46 M/mm3 (4.2-5.4); Red Cell Distribution Width 14.5 % (11.5-14.5); White Blood Count 13.7 K/mm3 (4.5-10.0)
[2020-01-17 05:27] LABS: Blood Urea Nitrogen 45 mg/dL (7-17); Calcium 7.9 mg/dL (8.4-10.2); Carbon Dioxide 30 mmol/L (22-30); Chloride 101 mmol/L (98-107); Estimated CRCL calculation 15 ml/min; Estimated Glomerular Filt Rate 13; Glucose 154 mg/dL (65-105); Phosphorus 4.3 mg/dL (2.5-4.5); Potassium 3.5 mmol/L (3.4-5.0); Sodium 144 mmol/L (137-145)
[2020-01-17 06:08] LABS: Iron 34 ug/dL (37-170)
[2020-01-17 06:21] LABS: Percent Iron Saturation 15 % (20-50)
[2020-01-17 06:31] LABS: Folic Acid > 20.0 ng/mL (2.76->20)
--- NOTE | 2020-01-17 07:58 | PM.PNNEP ---
Progress Note: A&P Assessment and Plan (1) CKD (chronic kidney disease), stage V: Code(s): N18.5 - Chronic kidney disease, stage 5 Status: Acute Assessment and Plan: The patient has chronic kidney disease and already has a fistula. Acute component has resolved. Renal function sufficient for now. She has a fistula which is working well. Her creatinine is running in the mid threes. Will follow this along (2) Acute respiratory failure: Qualifiers: Respiratory failure complication: hypoxia Qualified Code(s): J96.01 - Acute respiratory failure with hypoxia Code(s): J96.00 - Acute respiratory failure, unspecified whether with hypoxia or hypercapnia Status: Acute Assessment and Plan: Improved. On nasal cannula (3) Essential hypertension: Code(s): I10 - Essential (primary) hypertension Status: Acute Assessment and Plan: She is off antihypertensives Blood pressure is doing well. She is on midodrine. Blood pressure has been in the 140s at times as well. So I am going to cut the midodrine to 5 and may be stop it if she does okay. (4) Diabetes: Code(s): E11.9 - Type 2 diabetes mellitus without complications Status: Acute Assessment and Plan: . On Accu-Cheks and sliding-scale insulin Sugars up and down. (5) Anemia: Code(s): D64.9 - Anemia, unspecified Status: Acute Assessment and Plan: Hemoglobin is low. Will check a reticulocyte count. His start EPO. Subjective Date/time seen: 01/17/20 07:58 Interval history: Patient is awake and comfortable. On nasal cannula oxygen. She did not sleep very well. She has no shortness of breath. Exam Narrative: Exam Narrative: Well developed well-nourished in no acute distress Lungs fairly clear bilaterally Heart regular without rub or gallop Abdomen BS+ soft nontender Extremities no edema Skin no rash or subcu nodules Objective Data Vital Signs Vital Signs: Vital Signs - 24 hr 01/16/20 08:00 01/16/20 10:00 01/16/20 10:01 Temperature 36.9 C Pulse Rate 82 95 99 Respiratory Rate 24 H 25 H Blood Pressure 101/48 L 114/46 L Pulse Oximetry 99 92 01/16/20 12:00 01/16/20 13:45 01/16/20 13:55 Temperature 37.1 C Pulse Rate 82 85 88 Respiratory Rate 22 H 20 20 Blood Pressure 121/46 L Pulse Oximetry 93 01/16/20 14:00 01/16/20 16:00 01/16/20 18:00 Temperature 36.8 C Pulse Rate 83 86 95 Respiratory Rate 17 Blood Pressure 147/127 H Pulse Oximetry 93 01/16/20 20:00 01/16/20 21:55 01/16/20 21:58 Temperature 36.5 C Pulse Rate 86 85 Respiratory Rate 30 H 20 Blood Pressure 147/57 H Pulse Oximetry 88 L 96 01/16/20 22:05 01/17/20 00:00 01/17/20 01:39 Temperature 36.4 C L Pulse Rate 88 84 79 Respiratory Rate 20 23 H 20 Blood Pressure 140/63 Pulse Oximetry 94 01/17/20 04:00 01/17/20 07:41 Temperature 36.8 C Pulse Rate 84 80 Respiratory Rate 24 H 20 Blood Pressure 115/69 Pulse Oximetry 95 98 Intake/Output Intake/Output: Intake & Output 01/14/20 01/15/20 01/16/20 01/17/20 23:59 23:59 23:59 23:59 Intake Total 1392.8 149.2 677.4 100 Output Total 1400 1490 850 375 Balance -7.2 -1340.8 -172.6 -275 Meds/Results Medications: Active Medications Generic Name Dose Route Start Last Admin Trade Name Freq PRN Reason Stop Dose Admin Albuterol 5 mg 01/10/20 20:00 01/17/20 07:41 Albuterol Sulf Neb 2.5mg/0.5ml INHALATION 5 mg Q6HRT CYNTHIA Administration Aspirin 81 mg 01/16/20 09:00 01/16/20 12:28 Aspirin Ec PO 81 mg DAILY CYNTHIA Administration Atorvastatin Calcium 20 mg 01/16/20 09:00 01/16/20 12:28 Lipitor PO 20 mg DAILY CYNTHIA Administration Dextrose 12.5 gm 01/10/20 19:11 01/11/20 05:33 Dextrose 50% Syringe IV PUSH 12.5 gm PRN PRN Administration Hypoglycemia Protocol Glucagon 1 mg 01/10/20 19:11 Glucagon For Inj IM PRN PRN
--- NOTE | 2020-01-17 08:19 | PHAR ---
PT INFO SHEET SENT WITH FIRST EPOGEN DOSE
[2020-01-17] MEDS: SODIUM CHLORIDE 0.9% IV 250 ML 30 ML IV CONT (08:53)
[2020-01-17] MEDS: TUBING, BLOOD PLUM PUMP TUBING 1 EACH XX (08:55)
[2020-01-17] MEDS: ASPIRIN 81 MG ENTERIC TABLET PO (09:02)
[2020-01-17] MEDS: ATORVASTATIN 20 MG TABLET PO (09:02)
[2020-01-17 09:03] LABS: Immature Reticulocyte Fraction 17.5 % (3.0-15.9); Reticulocyte Hemoglobin Conten 28.7 pg (28.2-35.7); Reticulocyte Percent 2.35 % (0.7-4.3); Reticulocytes Absolute 0.06 B/L (32.2-175.7)
[2020-01-17] MEDS: PANTOPRAZOLE 40 MG TABLET PO (09:03)
[2020-01-17] MEDS: MULTIVITAMINS THERAPEUTIC TAB (*BKC) 1 TABLET PO (09:03)
[2020-01-17] MEDS: HEPARIN SODIUM 5,000 UNITS/ML VIAL 5000 UNITS SUB-Q ×2 (09:03→20:09)
[2020-01-17] MEDS: TOLNAFTATE 1% POWDER 45 GM BTL 1 APPLIC TOPICAL ×2 (09:04→20:10)
--- NOTE | 2020-01-17 09:54 | PM.IMPN ---
Progress Note: A&P Assessment and Plan (1) Septic shock: Code(s): A41.9 - Sepsis, unspecified organism; R65.21 - Severe sepsis with septic shock Status: Acute Assessment and Plan: Patient met criteria for severe sepsis on admission with condition worsening to developing spetic shock on 01/11/2020 requiring placement of central line and starting Levophed. Levophed off but resumed 01/14 but able to come off again 01/15/20. BP reviewed on 01/17/20 and remaining stable of the Levophed. Blood and urine cultures negative. MRSA culture negative. WBC stable at13K today. Will continue IV cefepime and vancomycin. Will continue to monitor closely. (2) Acute respiratory failure: Qualifiers: Respiratory failure complication: hypoxia Qualified Code(s): J96.01 - Acute respiratory failure with hypoxia Code(s): J96.00 - Acute respiratory failure, unspecified whether with hypoxia or hypercapnia Status: Acute Assessment and Plan: Result of influenza A. Successfully extubated on 01/14/20. Now on oxygen via nasal cannula. Continue nebulizer treatments. Wean o2 as tolerated. (3) Influenza A: Code(s): J10.1 - Influenza due to other identified influenza virus with other respiratory manifestations Status: Acute Assessment and Plan: Positive screen in the emergency room. Treated with Tamiflu renally dose and has completed a treatment course. (4) Second degree AV block, Mobitz type II: Code(s): I44.1 - Atrioventricular block, second degree Status: Acute Assessment and Plan: Patient noted to have second-degree AV block on 01/11/2020. Cardiology consulted and appreciate input. Echo on 01/12/20 with EF 50-55% with diastolic dysfunction, mild bioprosthetic aortic valve stenosis, moderate mitral valve stenosis with mild mitral valve regurgitation and pulmonary hypertension. Patient has previously declined ICD as an outpatient per Cardiology when EF much lower. No obvious recurrence by tele. Continue to avoid AV junaid blocking agents. Will continue to monitor on tele. May need to hold Coreg indefinitely (5) Diabetes mellitus with ESRD (end-stage renal disease): Code(s): E11.22 - Type 2 diabetes mellitus with diabetic chronic kidney disease; N18.6 - End stage renal disease Status: Acute Assessment and Plan: A1c 6.2. Glucose reviewed on 01/17/2020. Glucose levels elevated last night but better this morning. Continue sliding scale insulin. Will continue to monitor. (6) CKD (chronic kidney disease), stage V: Code(s): N18.5 - Chronic kidney disease, stage 5 Status: Acute Assessment and Plan: Nephrology consulted and appreciate input. Creatinine 3.5 today and stable. Overall, her Cr is better then on admission. AV fistula maturing in right arm with plan for eventual hemodialysis. Will continue to monitor. (7) Essential hypertension: Code(s): I10 - Essential (primary) hypertension Status: Acute Assessment and Plan: Blood pressure reviewed on 01/17/2020. BP more stable and able to come off Levophed. Currently on midodrine. Home furosemide, Coreg and losartan still on hold. Continue to monitor. (8) Hypomagnesemia: Code(s): E83.42 - Hypomagnesemia Status: Acute Assessment and Plan: Magnesium 2 yesterday. Will continue to monitor periodically and replace as needed. (9) Chronic systolic heart failure: Code(s): I50.22 - Chronic systolic (congestive) heart failure Status: Acute Assessment and Plan: Hx of systolic dysfunction but EF has normallized. Stable without present decompensation. Echo on 01/12/20 as noted above. Lasix, losartan and Coreg on hold. Anticipate medications will be restarted as BP tolerates. Will monitor. (10) Coronary artery disease involving kashia coronary artery of kashia heart: Qualifiers: Associated
[2020-01-17] MEDS: EPOETIN ALFA 10,000 UNITS/ML VIAL 10000 UNITS SUB-Q (11:52)
[2020-01-17 12:39] LABS: Glucose Point of Care 230 (65-105)
[2020-01-17] MEDS: INSULIN ASPART (*BKC) 100 UNITS/ML SUB-Q (13:08)
[2020-01-17 17:20] LABS: Glucose Point of Care 161 (65-105)
[2020-01-17] MEDS: MONTELUKAST SODIUM 10 MG TABLET PO (20:09)
[2020-01-17] MEDS: SENNA/DOCUSATE SODIUM TABLET 1 TAB PO (20:09)
[2020-01-17] MEDS: TRAZODONE HCL 50 MG TABLET PO (20:09)
[2020-01-18] VITALS (14 sets, daily range): BP systolic 145–149; BP diastolic 63–78; PULSE 86–95; RESP 18–30; TEMP 36.8–37.1; O2SAT 91–95
[2020-01-18] MEDS: ALBUTEROL SULFATE NEB 2.5 MG/0.5 ML INH 5 MG INHALATION ×4 (02:22→20:00)
[2020-01-18] MEDS: IPRATROPIUM BR 0.02% INH SOLN 0.5 MG/2.5 ML VIAL INHALATION ×4 (02:22→20:00)
[2020-01-18 05:19] LABS: Albumin Level 3.1 g/dL (3.5-5.1); Blood Urea Nitrogen 39 mg/dL (7-17); Calcium 8.3 mg/dL (8.4-10.2); Carbon Dioxide 27 mmol/L (22-30); Chloride 101 mmol/L (98-107); Estimated CRCL calculation 14 ml/min; Estimated Glomerular Filt Rate 13; Glucose 167 mg/dL (65-105); Hematocrit 27.7 % (37.0-47.0); Hemoglobin 8.5 g/dL (12.0-15.0); Mean Corpuscular HGB Conc 30.7 g/dl (32-36); Mean Corpuscular Volume 94.5 fl (80-100); Phosphorus 3.5 mg/dL (2.5-4.5); Platelet Count Result 287 k/mm3 (150-375); Potassium 3.5 mmol/L (3.4-5.0); Red Blood Count 2.93 M/mm3 (4.2-5.4); Red Cell Distribution Width 15.6 % (11.5-14.5); Sodium 142 mmol/L (137-145); White Blood Count 13.9 K/mm3 (4.5-10.0)
[2020-01-18 08:14] LABS: Glucose Point of Care 169 (65-105)
--- NOTE | 2020-01-18 08:15 | PM.PNNEP ---
Progress Note: A&P Assessment and Plan (1) CKD (chronic kidney disease), stage V: Code(s): N18.5 - Chronic kidney disease, stage 5 Status: Acute Assessment and Plan: The patient has chronic kidney disease and already has a fistula. Acute component has resolved. Up a bit over the last couple of days. (2) Acute respiratory failure: Qualifiers: Respiratory failure complication: hypoxia Qualified Code(s): J96.01 - Acute respiratory failure with hypoxia Code(s): J96.00 - Acute respiratory failure, unspecified whether with hypoxia or hypercapnia Status: Acute Assessment and Plan: Needed some breathing treatments last night. She does not get these at home and is not on oxygen at home. Will check a chest x-ray. She does not have any swelling but possibly she needs some diuretics. (3) Essential hypertension: Code(s): I10 - Essential (primary) hypertension Status: Acute Assessment and Plan: She is off antihypertensives Blood pressure is doing well. Stop midodrine. (4) Diabetes: Code(s): E11.9 - Type 2 diabetes mellitus without complications Status: Acute Assessment and Plan: . On Accu-Cheks and sliding-scale insulin Sugars up and down. (5) Anemia: Code(s): D64.9 - Anemia, unspecified Status: Acute Assessment and Plan: Hemoglobin is low. Retic is okay. On Epogen now. Subjective Date/time seen: 01/18/20 08:15 Interval history: Patient is awake and comfortable. Still on oxygen. O2 sat 90%. She had shortness of breath this morning. Relieved by a breathing treatment She has no swelling Review of Systems Cardiovascular: Cardiovascular: Reports no additional cardiovascular complaints Respiratory: Respiratory: Reports no additional respiratory complaints Gastrointestinal: Gastrointestinal: Reports no additional gastrointestinal complaints Genitourinary: Genitourinary: Reports no additional female genitourinary complaints Exam Narrative: Exam Narrative: Well developed well-nourished in no acute distress Lungs <del>decreased</del> <del>breath</del> <del>sounds</del> <del>at</del> <del>the</del> <del>bases</del> Heart regular without rub or gallop Abdomen BS+ soft nontender Extremities no edema or cyanosis Skin no rash Objective Data Vital Signs Vital Signs: Vital Signs - 24 hr 01/17/20 08:33 02/19/20 08:48 01/17/20 09:47 Temperature 37.0 C 36.6 C 37.1 C Pulse Rate 100 95 90 Respiratory Rate 24 H 15 20 Blood Pressure 120/59 L 139/57 L 120/48 L Pulse Oximetry 92 92 93 01/17/20 09:48 01/17/20 10:00 01/17/20 10:48 Temperature 36.6 C 36.6 C Pulse Rate 95 80 92 Respiratory Rate 23 H 29 H Blood Pressure 120/48 L 143/61 H Pulse Oximetry 92 92 01/17/20 11:48 01/17/20 12:00 01/17/20 14:00 Temperature 37.1 C 37.1 C Pulse Rate 90 85 90 Respiratory Rate 27 H 24 H Blood Pressure 126/61 126/61 Pulse Oximetry 92 91 01/17/20 15:00 01/17/20 15:10 01/17/20 16:00 Temperature 37.1 C Pulse Rate 89 87 101 H Respiratory Rate 20 20 25 H Blood Pressure 149/65 H Pulse Oximetry 92 01/17/20 18:00 01/17/20 20:00 01/17/20 20:07 Temperature 36.8 C Pulse Rate 101 H 97 97 Respiratory Rate 24 H 22 H Blood Pressure 125/82 Pulse Oximetry 93 87 L 01/17/20 20:19 01/17/20 20:40 01/17/20 22:00 Temperature Pulse Rate 94 94 Respiratory Rate 20 Blood Pressure Pulse Oximetry 94 01/18/20 00:00 01/18/20 02:00 01/18/20 02:23 Temperature 36.9 C Pulse Rate 93 92 90 Respiratory Rate 28 H 20 Blood Pressure 149/71 H Pulse Oximetry 92 01/18/20 02:31 01/18/20 04:00 01/18/20 06:00 Temperature 36.8 C Pulse Rate 88 88 88 Respiratory Rate 18 23 H Blood Pressure Pulse Oximetry 94 01/18/20 07:06 01/18/20 07:16 Temperature Pulse Rate 86 89 Respiratory Rate 26 H 30 H Blood Pressure Pulse Oximetry 92 Intake/Output Inta
[2020-01-18] MEDS: MIDODRINE HCL 2.5 MG TABLET 5 MG PO ×3 (09:36→16:52)
[2020-01-18] MEDS: PANTOPRAZOLE 40 MG TABLET PO (09:37)
[2020-01-18] MEDS: MULTIVITAMINS THERAPEUTIC TAB (*BKC) 1 TABLET PO (09:37)
[2020-01-18] MEDS: ASPIRIN 81 MG ENTERIC TABLET PO (09:38)
[2020-01-18] MEDS: ATORVASTATIN 20 MG TABLET PO (09:38)
[2020-01-18] MEDS: TOLNAFTATE 1% POWDER 45 GM BTL 1 APPLIC TOPICAL ×2 (09:38→20:31)
[2020-01-18] MEDS: HEPARIN SODIUM 5,000 UNITS/ML VIAL 5000 UNITS SUB-Q ×2 (09:39→20:32)
[2020-01-18] MEDS: INSULIN ASPART (*BKC) 100 UNITS/ML SUB-Q (12:11)
[2020-01-18 12:14] LABS: Glucose Point of Care 221 (65-105)
--- NOTE | 2020-01-18 12:14 | PC.NURSE ---
This patient, Martha Reid, was received from [ IMU] on 01/18/20 at 1200. Personal belongings list checked and signed. Patient/family oriented to unit policies and routines
--- NOTE | 2020-01-18 13:31 | PCOTNOTE ---
Attempted to see patient this pm, however patient declined. I'm too tired. I just want the day off. I didn't sleep good last night. I'm too tired.
[2020-01-18] MEDS: BUMETANIDE INJ 1 MG/4 ML VIAL IV PUSH ×2 (14:04→18:16)
--- NOTE | 2020-01-18 16:29 | PCPTNOTE ---
The patient treatment was not able to be completed on 01/18/2020. Will plan to continue treatment per plan of care.
[2020-01-18 16:55] LABS: Glucose Point of Care 195 (65-105)
[2020-01-18 18:12] LABS: Vancomycin Trough 23.7 ug/mL (10.0-20.0)
--- NOTE | 2020-01-18 18:52 | PM.IMPN ---
Progress Note: A&P Assessment and Plan (1) Septic shock: Code(s): A41.9 - Sepsis, unspecified organism; R65.21 - Severe sepsis with septic shock Status: Acute Assessment and Plan: Patient met criteria for severe sepsis on admission with condition worsening to developing spetic shock on 01/11/2020 requiring placement of central line and starting Levophed. Levophed off but resumed 01/14 but able to come off again 01/15/20. BP reviewed on 01/18/20 and remaining stable of the Levophed. Blood and urine cultures negative. MRSA culture negative. WBC stable at 14K today. Will stop IV cefepime and vancomycin. Remove central line. Will continue to monitor closely. (2) Acute respiratory failure: Qualifiers: Respiratory failure complication: hypoxia Qualified Code(s): J96.01 - Acute respiratory failure with hypoxia Code(s): J96.00 - Acute respiratory failure, unspecified whether with hypoxia or hypercapnia Status: Acute Assessment and Plan: Result of influenza A and posibly PNA. Successfully extubated on 01/14/20. Now on oxygen via nasal cannula. Continue nebulizer treatments and IV antibiotics. Wean O2 as tolerated. (3) Pneumonia: Code(s): J18.9 - Pneumonia, unspecified organism Status: Acute Assessment and Plan: Patient possibly with PNA. Treated with Cefepime and Vanco Day 9. All cx negative. Will stop abx today. Contine to monitor. (4) Influenza A: Code(s): J10.1 - Influenza due to other identified influenza virus with other respiratory manifestations Status: Acute Assessment and Plan: Positive screen in the emergency room. Treated with Tamiflu renally dose and has completed a treatment course. (5) Second degree AV block, Mobitz type II: Code(s): I44.1 - Atrioventricular block, second degree Status: Acute Assessment and Plan: Patient noted to have second-degree AV block on 01/11/2020. Cardiology consulted and appreciate input. Echo on 01/12/20 with EF 50-55% with diastolic dysfunction, mild bioprosthetic aortic valve stenosis, moderate mitral valve stenosis with mild mitral valve regurgitation and pulmonary hypertension. Patient has previously declined ICD as an outpatient per Cardiology when EF much lower. Continue to avoid AV junaid blocking agents. Will continue to monitor on tele. May need to hold Coreg indefinitely. (6) Diabetes mellitus with ESRD (end-stage renal disease): Code(s): E11.22 - Type 2 diabetes mellitus with diabetic chronic kidney disease; N18.6 - End stage renal disease Status: Acute Assessment and Plan: A1c 6.2. Glucose reviewed on 01/18/2020. Glucose levels more elevated possibly related to improved intake. Glipizide on hold with no plans to resume this medication in a patient with renal failure. Continue sliding scale insulin. Will continue to monitor. (7) CKD (chronic kidney disease), stage V: Code(s): N18.5 - Chronic kidney disease, stage 5 Status: Acute Assessment and Plan: Nephrology consulted and appreciate input. Creatinine 3.6 today and stable. Overall, her Cr is better then on admission. AV fistula maturing in right arm with plan for eventual hemodialysis. Bumex started to improve fluid status. Will continue to monitor. (8) Essential hypertension: Code(s): I10 - Essential (primary) hypertension Status: Acute Assessment and Plan: Blood pressure reviewed on 01/18/2020. BP stable and able to come off Levophed. Currently on midodrine. Home furosemide, Coreg and losartan still on hold. Continue to monitor. (9) Hypomagnesemia: Code(s): E83.42 - Hypomagnesemia Status: Acute Assessment and Plan: Magnesium stable. (10) Chronic systolic heart failure: Code(s): I50.22 - Chronic systolic (congestive) heart failure Status: Acute Assessment and Plan: Hx of
[2020-01-18] MEDS: MONTELUKAST SODIUM 10 MG TABLET PO (20:32)
[2020-01-18] MEDS: TRAZODONE HCL 50 MG TABLET PO (20:32)
[2020-01-18] MEDS: SENNA/DOCUSATE SODIUM TABLET 1 TAB PO (20:32)
[2020-01-19] VITALS (16 sets, daily range): BP systolic 136–142; BP diastolic 63–80; PULSE 91–102; RESP 20–26; TEMP 36.4–37.5; O2SAT 92–96
[2020-01-19] MEDS: IPRATROPIUM BR 0.02% INH SOLN 0.5 MG/2.5 ML VIAL INHALATION ×4 (02:10→20:44)
[2020-01-19] MEDS: ALBUTEROL SULFATE NEB 2.5 MG/0.5 ML INH 5 MG INHALATION ×4 (02:10→21:00)
--- NOTE | 2020-01-19 03:47 | PCRCNOTE ---
[facility]
[2020-01-19 05:56] LABS: Albumin Level 3.5 g/dL (3.5-5.1); Blood Urea Nitrogen 39 mg/dL (7-17); Calcium 8.5 mg/dL (8.4-10.2); Carbon Dioxide 24 mmol/L (22-30); Chloride 104 mmol/L (98-107); Estimated CRCL calculation 14 ml/min; Estimated Glomerular Filt Rate 13; Glucose 204 mg/dL (65-105); Phosphorus 3.9 mg/dL (2.5-4.5); Potassium 3.8 mmol/L (3.4-5.0); Sodium 140 mmol/L (137-145)
[2020-01-19 06:06] LABS: Glucose Point of Care 186 (65-105)
[2020-01-19 06:48] LABS: Basophils Absolute Auto 0.1 K/mm3 (0.0-0.1); Basophils Percent Auto 0.4 % (0.2-1.2); Eosinophils Absolute Auto 0.2 K/mm3 (0-0.3); Eosinophils Percent Auto 1.2 % (0-4.4); Hematocrit 30.5 % (37.0-47.0); Hemoglobin 9.1 g/dL (12.0-15.0); Immature Granulocyte Absolute 0.07 K/mm3 (0.00-0.031); Immature Granulocyte Percent A 0.5 % (0-0.5); Lymphocytes Percent Auto 14.6 % (18.3-44.2); Mean Corpuscular HGB Conc 29.8 g/dl (32-36); Mean Corpuscular Hemoglobin 28.3 pg (26-34); Mean Platelet Volume 11.7 fl (7.4-10.4); Monocytes Absolute Auto 0.8 K/mm3 (0.1-0.6); Monocytes Percent Auto 5.5 % (2.6-8.5); Neutrophils Absolute Auto 10.7 K/mm3 (1.3-6.7); Neutrophils Percent Auto 77.8 % (45.5-73.1); Nucleated Red Blood Cells Perc 0.2 % (0.0-0.2); Platelet Count Result 312 k/mm3 (150-375); Red Blood Count 3.21 M/mm3 (4.2-5.4); White Blood Count 13.7 K/mm3 (4.5-10.0)
[2020-01-19 06:49] LABS: Glucose Point of Care 178 (65-105)
[2020-01-19] MEDS: MIDODRINE HCL 2.5 MG TABLET 5 MG PO ×3 (08:19→20:56)
[2020-01-19] MEDS: ASPIRIN 81 MG ENTERIC TABLET PO (08:19)
[2020-01-19] MEDS: HEPARIN SODIUM 5,000 UNITS/ML VIAL 5000 UNITS SUB-Q ×2 (08:19→21:00)
[2020-01-19] MEDS: ATORVASTATIN 20 MG TABLET PO (08:19)
[2020-01-19] MEDS: MULTIVITAMINS THERAPEUTIC TAB (*BKC) 1 TABLET PO (08:19)
[2020-01-19] MEDS: PANTOPRAZOLE 40 MG TABLET PO (08:20)
[2020-01-19] MEDS: TOLNAFTATE 1% POWDER 45 GM BTL 1 APPLIC TOPICAL ×2 (08:21→20:57)
[2020-01-19] MEDS: EPOETIN ALFA 10,000 UNITS/ML VIAL 10000 UNITS SUB-Q (08:25)
[2020-01-19 11:48] LABS: Glucose Point of Care 245 (65-105)
--- NOTE | 2020-01-19 11:57 | PM.PNNEP ---
Progress Note: A&P Assessment and Plan (1) CKD (chronic kidney disease), stage V: Code(s): N18.5 - Chronic kidney disease, stage 5 Status: Acute Assessment and Plan: creatinine flucutating on admission but seems more stable now no acute need for renal replacement therapy at this time (has AV access in place) follow electrolytes, volume status, and CKD parameters (2) Acute respiratory failure: Qualifiers: Respiratory failure complication: hypoxia Qualified Code(s): J96.01 - Acute respiratory failure with hypoxia Code(s): J96.00 - Acute respiratory failure, unspecified whether with hypoxia or hypercapnia Status: Acute Assessment and Plan: respiratory status better in general some improvement with use of diuretic therapy would continue bumex on discharge (3) Essential hypertension: Code(s): I10 - Essential (primary) hypertension Status: Acute Assessment and Plan: BP stable follow trend of hemodynamics (4) Diabetes: Code(s): E11.9 - Type 2 diabetes mellitus without complications Status: Acute Assessment and Plan: follow accuchecks (5) Anemia: Code(s): D64.9 - Anemia, unspecified Status: Acute Assessment and Plan: due to CKD and acute illness on Epogen while hospitalized Will continue to follow. Subjective Date/time seen: 01/19/20 11:57 Appears to be doing much better than when I last saw her (intubated and in ICU); no new issues or problems voiced at this time; respiratory status better/stable with huse of diuretics; no distress voiced. Exam Narrative: Exam Narrative: General: WD/WN female in NAD Heart: normal S1 and S2; no rub Lungs: decreased breath sounds at the bases Abdomen: soft, nontender, nondistended, positive bowel sounds Extremities: no cyanosis or clubbing; no edema Skin: warm and dry Objective Data Vital Signs Vital Signs: Vital Signs Temp Pulse Resp BP Pulse Ox 01/19/20 10:00 37.1 C 101 H 21 H 142/80 H 96 01/19/20 09:30 92 01/19/20 08:58 96 22 H 01/19/20 08:45 98 22 H 95 01/19/20 04:00 36.4 C L 96 20 136/63 94 01/19/20 02:20 93 22 H 01/19/20 02:10 91 22 H 01/19/20 00:00 36.6 C 91 20 140/63 95 01/18/20 20:10 88 26 H 01/18/20 20:00 36.9 C 95 20 145/65 H 95 01/18/20 18:00 37.1 C 89 18 146/78 H 92 01/18/20 14:00 37.0 C 92 20 148/63 H 91 Intake/Output Intake/Output: Intake & Output 01/16/20 01/17/20 01/18/20 01/19/20 23:59 23:59 23:59 23:59 Intake Total 677.4 1313 930 400 Output Total 850 675 950 600 Balance -172.6 638 -20 -200 Meds/Results Medications: Active Medications Generic Name Dose Route Start Last Admin Trade Name Freq PRN Reason Stop Dose Admin Albuterol 5 mg 01/10/20 20:00 01/19/20 08:45 Albuterol Sulf Neb 2.5mg/0.5ml INHALATION 5 mg Q6HRT CYNTHIA Administration Aspirin 81 mg 01/16/20 09:00 01/19/20 08:19 Aspirin Ec PO 81 mg DAILY CYNTHIA Administration Atorvastatin Calcium 20 mg 01/16/20 09:00 01/19/20 08:19 Lipitor PO 20 mg DAILY CYNTHIA Administration Dextrose 12.5 gm 01/10/20 19:11 01/11/20 05:33 Dextrose 50% Syringe IV PUSH 12.5 gm PRN PRN Administration Hypoglycemia Protocol Epoetin Mike 10,000 units 01/17/20 09:00 01/19/20 08:25 Epogen SUB-Q 10,000 units [id number]@[id number] CYNTHIA Administration Glucagon 1 mg 01/10/20 19:11 Glucagon For Inj IM PRN PRN Hypoglycemia Protocol Glucose 15 gm 01/10/20 19:11 Glutose 15 PO PRN PRN Hypoglycemia Protocol Heparin Sodium (Porcine) 5,000 units 01/10/20 21:00 01/19/20 08:19 Heparin Sodium SUB-Q 5,000 units Q12HR CYNTHIA Administration Hydralazine HCl 10 mg 01/14/20 09:40 Apresoline Hcl Inj IV PUSH Q6H PRN Blood Pressure - High>160 Dextrose 1,000 mls @ 100 mls/hr 01/10/20 19:11 Dextrose 5% 1,000 Ml IVP
[2020-01-19] MEDS: INSULIN ASPART (*BKC) 100 UNITS/ML SUB-Q (12:54)
--- NOTE | 2020-01-19 14:28 | P.PNIM_ITS ---
Progress Note: A&P Assessment and Plan (1) Septic shock: Code(s): A41.9 - Sepsis, unspecified organism; R65.21 - Severe sepsis with septic shock Status: Acute Assessment and Plan: Patient met criteria for severe sepsis on admission with condition worsening to developing spetic shock on 01/11/2020 requiring placement of central line and starting Levophed. Levophed off but resumed 01/14 but able to come off again 01/15/20. BP monitored and remaining stable of the Levophed. Blood and urine cultures negative. MRSA culture negative. (2) Acute respiratory failure: Qualifiers: Respiratory failure complication: hypoxia Qualified Code(s): J96.01 - Acute respiratory failure with hypoxia Code(s): J96.00 - Acute respiratory failure, unspecified whether with hypoxia or hypercapnia Status: Acute Assessment and Plan: Result of influenza A and possibly PNA. Successfully extubated on 01/14/20. Now on oxygen via nasal cannula. (3) Pneumonia: Code(s): J18.9 - Pneumonia, unspecified organism Status: Acute Assessment and Plan: Patient possibly with PNA. Treated with Cefepime and Vanco Day 9. All cx negative. (4) Influenza A: Code(s): J10.1 - Influenza due to other identified influenza virus with other respiratory manifestations Status: Acute Assessment and Plan: Positive screen in the emergency room. Treated with Tamiflu renally dose and has completed a treatment course. (5) Second degree AV block, Mobitz type II: Code(s): I44.1 - Atrioventricular block, second degree Status: Acute Assessment and Plan: Patient noted to have second-degree AV block on 01/11/2020. Cardiology consulted and appreciate input. Echo on 01/12/20 with EF 50-55% with diastolic dysfunction, mild bioprosthetic aortic valve stenosis, moderate mitral valve stenosis with mild mitral valve regurgitation and pulmonary hypertension. Patient has previously declined ICD as an outpatient per Cardiology when EF much lower. Continue to avoid AV junaid blocking agents. (6) Diabetes mellitus with ESRD (end-stage renal disease): Code(s): E11.22 - Type 2 diabetes mellitus with diabetic chronic kidney disease; N18.6 - End stage renal disease Status: Acute Assessment and Plan: A1c 6.2. Glucose monitored closely. Glucose levels more elevated at times. Glipizide on hold with no plans to resume this medication in a patient with renal failure. Treated with sliding scale insulin. (7) CKD (chronic kidney disease), stage V: Code(s): N18.5 - Chronic kidney disease, stage 5 Status: Acute Assessment and Plan: Nephrology consulted and appreciate input. Creatinine 3.5 today and stable. Overall, her Cr is better then on admission. AV fistula maturing in right arm with plan for eventual hemodialysis. Bumex given which she tolerated with stable renal function. (8) Essential hypertension: Code(s): I10 - Essential (primary) hypertension Status: Acute Assessment and Plan: Blood pressure monitored closely. BP stabilized and able to come off Levophed. Midodrine was added. Home furosemide, Coreg and losartan still on hold. Changing to Bumex. Avoiding AV junaid blocking agents (9) Hypomagnesemia: Code(s): E83.42 - Hypomagnesemia Status: Acute Assessment and Plan: Magnesium stable. (10) Chronic systolic heart failure: Code(s): I50.22 - Chronic systolic (congestive) heart failure Status: Acute
--- NOTE | 2020-01-19 15:00 | PCNFU ---
Nutrition Follow-Up Complete: Inadequate oral intake r/t NPO status as evidence by intubation, need for EN Initiation and tolerate EN Goal:limited progress towards goal. Pt current nutrition is DBCC, Mildly Thick Liquids, Level 2. Nutrition recommendation: Agree Last recorded weight is 80.6 kg. Bowel Motility:+BM 01/18 Labs Reviewed:GFR 13,BUN 39,Cr 3.5 Meds Noted:Novolog, Protonix, Lipitor Additional Notes: Patient intake has been poor. Lunch today-diet cola and soup 75% intake. MD orders for Glucerna Shakes BID for additional 220 kcals and 10 gms protein. PO intake is encouraged. Monitoring: weight, labs every 3 days.
--- NOTE | 2020-01-19 15:59 | PM.DS ---
DS: Diagnosis Admitting Diagnosis Admitting Diagnosis: Acute respiratory failure with hypoxia Discharge Diagnosis (1) Septic shock: Code(s): A41.9 - Sepsis, unspecified organism; R65.21 - Severe sepsis with septic shock Status: Acute Assessment and Plan: Patient met criteria for severe sepsis on admission with condition worsening to developing spetic shock on 01/11/2020 requiring placement of central line and starting Levophed. Levophed off but resumed 01/14 but able to come off again 01/15/20. BP monitored and remaining stable of the Levophed. Blood and urine cultures negative. MRSA culture negative. (2) Acute respiratory failure: Qualifiers: Respiratory failure complication: hypoxia Qualified Code(s): J96.01 - Acute respiratory failure with hypoxia Code(s): J96.00 - Acute respiratory failure, unspecified whether with hypoxia or hypercapnia Status: Acute Assessment and Plan: Result of influenza A and possibly PNA. Successfully extubated on 01/14/20. Now on oxygen via nasal cannula. (3) Pneumonia: Code(s): J18.9 - Pneumonia, unspecified organism Status: Acute Assessment and Plan: Patient possibly with PNA. Treated with Cefepime and Vanco Day 9. All cx negative. (4) Influenza A: Code(s): J10.1 - Influenza due to other identified influenza virus with other respiratory manifestations Status: Acute Assessment and Plan: Positive screen in the emergency room. Treated with Tamiflu renally dose and has completed a treatment course. (5) Second degree AV block, Mobitz type II: Code(s): I44.1 - Atrioventricular block, second degree Status: Acute Assessment and Plan: Patient noted to have second-degree AV block on 01/11/2020. Cardiology consulted and appreciate input. Echo on 01/12/20 with EF 50-55% with diastolic dysfunction, mild bioprosthetic aortic valve stenosis, moderate mitral valve stenosis with mild mitral valve regurgitation and pulmonary hypertension. Patient has previously declined ICD as an outpatient per Cardiology when EF much lower. Continue to avoid AV junaid blocking agents. (6) Diabetes mellitus with ESRD (end-stage renal disease): Code(s): E11.22 - Type 2 diabetes mellitus with diabetic chronic kidney disease; N18.6 - End stage renal disease Status: Acute Assessment and Plan: A1c 6.2. Glucose monitored closely. Glucose levels more elevated at times. Glipizide on hold with no plans to resume this medication in a patient with renal failure. Treated with sliding scale insulin. (7) CKD (chronic kidney disease), stage V: Code(s): N18.5 - Chronic kidney disease, stage 5 Status: Acute Assessment and Plan: Nephrology consulted and appreciate input. Creatinine 3.5 today and stable. Overall, her Cr is better then on admission. AV fistula maturing in right arm with plan for eventual hemodialysis. Bumex given which she tolerated with stable renal function. (8) Essential hypertension: Code(s): I10 - Essential (primary) hypertension Status: Acute Assessment and Plan: Blood pressure monitored closely. BP stabilized and able to come off Levophed. Midodrine was added. Home furosemide, Coreg and losartan still on hold. Changing to Bumex. Avoiding AV junaid blocking agents (9) Hypomagnesemia: Code(s): E83.42 - Hypomagnesemia Status: Acute Assessment and Plan: Magnesium stable. (10) Chronic systolic heart failure: Code(s): I50.22 - Chronic systolic (congestive) heart failure Status: Acute Assessment and Plan: Hx of systolic dysfunction but EF has normallized. CXR showing bilateral pleural effusions. Echo on 01/12/20 as noted above. Lasix, losartan and Coreg on hold. Bumex x 2 doses given which patient tolerated well. Plan to change Lasix to oral Bumex at discharge. Discussed with ana
[2020-01-19 17:19] LABS: Glucose Point of Care 202 (65-105)
[2020-01-19] MEDS: MONTELUKAST SODIUM 10 MG TABLET PO (20:56)
[2020-01-19] MEDS: SENNA/DOCUSATE SODIUM TABLET 1 TAB PO (20:56)
[2020-01-19] MEDS: TRAZODONE HCL 50 MG TABLET PO (20:56)
[2020-01-19 21:56] LABS: Glucose Point of Care 247 (65-105)
[2020-01-20 02:28] VITALS: BP 141/67; PULSE 94; RESP 20; TEMP 37.2; O2SAT 95
[2020-01-20 06:08] VITALS: BP 141/75; PULSE 103; RESP 20; TEMP 37.2; O2SAT 94
--- NOTE | 2020-01-20 06:40 | PC.NURSE ---
Pt palomino catheter was removed 01/19/2020 @ 1430. Pt had not voided by 2200 so i bladder scanned her at the time which showed 150ml @ that time. Pt had only voided 150 ML throughout the night so i rescanned patient @ 0500 01/20/2020 which showed 75-100 ML. Patient then attempted to void and voided 75ML.
[2020-01-20 08:12] LABS: Glucose Point of Care 215 (65-105)
[2020-01-20] MEDS: INSULIN ASPART (*BKC) 100 UNITS/ML SUB-Q (08:13)
[2020-01-20] MEDS: MIDODRINE HCL 2.5 MG TABLET 5 MG PO (08:14)
[2020-01-20] MEDS: ASPIRIN 81 MG ENTERIC TABLET PO (08:14)
[2020-01-20] MEDS: ATORVASTATIN 20 MG TABLET PO (08:14)
[2020-01-20] MEDS: IPRATROPIUM BR 0.02% INH SOLN 0.5 MG/2.5 ML VIAL INHALATION (08:14)
[2020-01-20] MEDS: PANTOPRAZOLE 40 MG TABLET PO (08:14)
[2020-01-20] MEDS: MULTIVITAMINS THERAPEUTIC TAB (*BKC) 1 TABLET PO (08:14)
[2020-01-20] MEDS: ALBUTEROL SULFATE NEB 2.5 MG/0.5 ML INH 5 MG INHALATION (08:14)
[2020-01-20 08:16] VITALS: PULSE 95; RESP 26; O2SAT 95
[2020-01-20] MEDS: HEPARIN SODIUM 5,000 UNITS/ML VIAL 5000 UNITS SUB-Q (08:19)
[2020-01-20] MEDS: TOLNAFTATE 1% POWDER 45 GM BTL 1 APPLIC TOPICAL (08:20)
[2020-01-20 10:57] VITALS: O2SAT 93
--- NOTE | 2020-01-20 12:45 | P.DS_ITS ---
DS: Diagnosis Admitting Diagnosis Admitting Diagnosis: Acute respiratory failure with hypoxia Discharge Diagnosis (1) Septic shock: Code(s): A41.9 - Sepsis, unspecified organism; R65.21 - Severe sepsis with septic shock Status: Acute Assessment and Plan: Patient met criteria for severe sepsis on admission with condition worsening to developing spetic shock on 01/11/2020 requiring placement of central line and starting Levophed. Levophed off but resumed 01/14 but able to come off again 01/15/20. BP monitored and remaining stable of the Levophed. Blood and urine cultures negative. MRSA culture negative. (2) Acute respiratory failure: Qualifiers: Respiratory failure complication: hypoxia Qualified Code(s): J96.01 - Acute respiratory failure with hypoxia Code(s): J96.00 - Acute respiratory failure, unspecified whether with hypoxia or hypercapnia Status: Acute Assessment and Plan: Result of influenza A and possibly PNA. Successfully extubated on 01/14/20. Now on oxygen via nasal cannula. (3) Pneumonia: Code(s): J18.9 - Pneumonia, unspecified organism Status: Acute Assessment and Plan: Patient possibly with PNA. Some mild dysphagia requiring thickening of her liquids. Treated with Cefepime and Vanco Day 9. All cx negative. (4) Influenza A: Code(s): J10.1 - Influenza due to other identified influenza virus with other respiratory manifestations Status: Acute Assessment and Plan: Positive screen in the emergency room. Treated with Tamiflu renally dose and has completed a treatment course. (5) Second degree AV block, Mobitz type II: Code(s): I44.1 - Atrioventricular block, second degree Status: Acute Assessment and Plan: Patient noted to have second-degree AV block on 01/11/2020. Cardiology consulted and appreciate input. Echo on 01/12/20 with EF 50-55% with diastolic dysfunction, mild bioprosthetic aortic valve stenosis, moderate mitral valve stenosis with mild mitral valve regurgitation and pulmonary hypertension. Patient has previously declined ICD as an outpatient per Cardiology when EF much lower. Continue to avoid AV junaid blocking agents. (6) Diabetes mellitus with ESRD (end-stage renal disease): Code(s): E11.22 - Type 2 diabetes mellitus with diabetic chronic kidney disease; N18.6 - End stage renal disease Status: Acute Assessment and Plan: A1c 6.2. Glucose monitored closely. Glucose levels more elevated at times. Glipizide on hold with no plans to resume this medication in a patient with renal failure. Treated with sliding scale insulin. (7) CKD (chronic kidney disease), stage V: Code(s): N18.5 - Chronic kidney disease, stage 5 Status: Acute Assessment and Plan: Nephrology consulted and appreciate input. Creatinine 3.5 today and stable. Overall, her Cr is better then on admission. AV fistula maturing in right arm with plan for eventual hemodialysis. Bumex given which she tolerated with stable renal function. (8) Essential hypertension: Code(s): I10 - Essential (primary) hypertension Status: Acute Assessment and Plan: Blood pressure monitored closely. BP stabilized and able to come off Levophed. Midodrine was added. Home furosemide, Coreg and losartan still on hold. Changing to Bumex. Avoiding AV junaid blocking agents (9) Hypomagnesemia: Code(s): E83.42 - Hypomagnesemia Status: Acute Assessment and Plan: Magnesium stable.
== END 2020-01-20 11:59 | DRG 871 ==
LOC: ANHED 17:09 → ANHICU 18:05 → ANH2MED 01-19 17:27 → ANHICU 01-22 15:32
PROVIDERS: Internal Medicine; Internal Medicine Nephrology; Admitting Provider Hospitalist; Emergency Provider Emergency Medicine; PCP Internal Medicine; Visit Provider Hospitalist
DX: A41.9 Sepsis, unspecified organism (principal); J96.01 Acute respiratory failure with hypoxia; N18.6 End stage renal disease; R65.21 Severe sepsis with septic shock; J18.9 Pneumonia, unspecified organism; J10.00 Influenza due to other identified influenza virus with unspecified type of pneumonia; I50.22 Chronic systolic (congestive) heart failure; I13.2 Hypertensive heart and chronic kidney disease with heart failure and with stage 5 chronic kidney disease, or end stage renal disease; I44.1 Atrioventricular block, second degree; Z28.21 Immunization not carried out because of patient refusal; E11.22 Type 2 diabetes mellitus with diabetic chronic kidney disease; I25.10 Atherosclerotic heart disease of native coronary artery without angina pectoris; E78.5 Hyperlipidemia, unspecified; Z86.73 Personal history of transient ischemic attack (TIA), and cerebral infarction without residual deficits; M19.90 Unspecified osteoarthritis, unspecified site; J44.9 Chronic obstructive pulmonary disease, unspecified; I25.2 Old myocardial infarction; K21.9 Gastro-esophageal reflux disease without esophagitis; Z98.41 Cataract extraction status, right eye; Z98.42 Cataract extraction status, left eye; Z95.3 Presence of xenogenic heart valve; E83.42 Hypomagnesemia; I44.7 Left bundle-branch block, unspecified; Z95.1 Presence of aortocoronary bypass graft; I95.9 Hypotension, unspecified; E11.65 Type 2 diabetes mellitus with hyperglycemia; D64.9 Anemia, unspecified; R13.10 Dysphagia, unspecified; E66.9 Obesity, unspecified; Z68.31 Body mass index [BMI] 31.0-31.9, adult
CPT/HCPCS: 36415; 36430; 36600; 70450; 71045; 71046; 80048; 80053; 80069; 80202; 81001; 82274; 82375; 82607; 82728; 82746; 82805; 83036; 83050; 83540; 83550; 83605; 83735; 84100; 84443; 84484; 85025; 85027; 85046; 85610; 85730; 86850; 86900; 86901; 86923; 87040; 87081; 87086; 87804; 92526; 92611; 93005; 93306; 94003; 94640; 96365; 96368; 96375; 96376; 97110; 97116; 97161; 97165; 97530; 97535; 99285; A9270; C1751; C9113; J0330; J0461; J0692; J1644; J1815; J1940; J2250; J2543; J3010; J3370; J3475; J3480; J7030; J7050; J7070; P9016; Q4081

== ENCOUNTER 2020-02-05 12:51 | Outpatient (CLI) | payer MEDICARE, MEDICAID, SELFPAY ==
--- NOTE | ~2020-02-05 | XR_ITS ---
XR chest 2V DATE: 02/05/2020 13:47 INDICATION: Shortness of breath. Influenza. COPD. TECHNIQUE: AP and lateral views COMPARISON: 01/18/2020 AP and lateral views FINDINGS: Status post sternotomy and cardiac valve replacement. Borderline heart size. There are bilateral mild pleural effusions. There are bibasilar infiltrates and/atelectasis, relative ly stable on the right and mildly increased on the left since 01/18/2020. IMPRESSION: Bibasilar infiltrate and/or atelectasis and mild bilateral pleural effusions, increased o n the left since 01/18/2020 Reviewed, dictated and finalized at location B. IMPRESSION: Bibasilar infiltrate and/or atelectasis and mild bilateral pleural effusions, increased on the left since 01/18/2020
--- NOTE | ~2020-02-05 | NM_ITS ---
EXAMINATION: NM lung vent and perfusion EXAM DATE: 02/05/2020 13:40 INDICATION: Shortness of breath. Influenza. COPD. TECHNIQUE: A ventilation perfusion lung scan was performed. The patient inhaled 10 mCi xenon-133 whi le images were acquired. The patient was then injected with 5 mCi technetium 99m MAA and reimaged. C omparison is made to prior examination from 11/13/2013. FINDINGS: There is relatively low counts but homogeneous radiotracer activity throughout the lungs o n the single breath ventilation sequence, with mild tracer retention on washout phase. There is relat ively homogeneous perfusion throughout the lungs. No discrete ventilation and perfusion mismatch is i dentified. IMPRESSION: Low probability pulmonary embolism. Reviewed, dictated and finalized at location A.
== END 2020-02-05 12:52 | disposition home or self-care (01) ==
PROVIDERS: PCP Family Medicine; Visit Provider Family Medicine
DX: J44.9 Chronic obstructive pulmonary disease, unspecified (principal); J11.1 Influenza due to unidentified influenza virus with other respiratory manifestations; R93.89 Abnormal findings on diagnostic imaging of other specified body structures; I10 Essential (primary) hypertension
CPT/HCPCS: 71046; 78582; A9540; A9558

== ENCOUNTER 2020-04-26 11:18 | Inpatient (IN) | payer MEDICARE, MEDICAID, SELFPAY ==
[2020-04-26] VITALS (28 sets, daily range): BP systolic 76–107; BP diastolic 44–75; PULSE 68–142; RESP 16–37; TEMP 36.1–36.6; O2SAT 19–100
--- NOTE | ~2020-04-26 | US_ITS ---
EXAMINATION: US venous doppler UE LT DATE: 05/08/2020 15:08 INDICATION: Left upper limb swelling. TECHNIQUE: Grayscale ultrasound images without and with compression and Doppler ultrasound images of the left upper extremity veins were obtained. COMPARISON: Ultrasound 04/30/2020 FINDINGS: The visualized portions of the left internal jugular vein, subclavian vein, axillary vein, brachial v eins, cephalic vein, radial vein, and ulnar vein are patent. There is thrombus in left basilic vein. IMPRESSION: 1. No deep venous thrombosis. 2. Thrombus in left basilic vein, which is a superficial vein. Reviewed, dictated and finalized at location A.
--- NOTE | ~2020-04-26 | XR_ITS ---
EXAMINATION: XR chest 1V portable DATE: 05/03/2020 05:52 INDICATION: Respiratory failure. Intubated. TECHNIQUE: A single frontal view of the chest was obtained. COMPARISON: Chest single view 05/02/2020 FINDINGS: There are small pleural effusions. There are airspace opacities in the mid and lower lung z ones with a basilar predominance. No pneumothorax. Cardiomegaly is noted. There are changes of heart valve replacement. The endotracheal tube tip is 2.9 cm above the giovanni. The nasogastric tube tip is beyond the inferior margin of the radiograph, but at least to the stomach. IMPRESSION: 1. Stable small pleural effusions. 2. Stable airspace opacities in the mid and lower lung zones with a basilar predominance, consistent with atelectasis versus pneumonia. 3. Cardiomegaly. Reviewed, dictated and finalized at location A. IMPRESSION: 1. Stable small pleural effusions. 2. Stable airspace opacities in the mid and lower lung zones with a basilar pre dominance, consistent with atelectasis versus pneumonia. 3. Cardiomegaly.
--- NOTE | ~2020-04-26 | XR_ITS ---
EXAMINATION: XR abdomen NG/feed tube insert DATE: 05/03/2020 19:17 INDICATION: Nasogastric tube placement TECHNIQUE: A supine view of the abdomen and lower chest was obtained for evaluation of feeding tube placement. COMPARISON: 04/26/2020 FINDINGS: Is a gastric tube tip in proximal side port in the body of the stomach. Small amount of gas in the st omach and moderate amount scattered throughout the visualized colon in the abdomen. The pelvis is exc luded from the [id number]. No dilated gas-filled loops of bowel to suggest obstruction. Small righ t pleural effusion with right basilar atelectasis and/or pneumonia. Cardiomegaly. Median sternotomy w ires, ostial markers and mediastinal surgical clips consistent with prior coronary artery bypass clark ting. Aortic valve replacement. Left internal jugular central venous catheter with distal tip at the cephalad superior vena cava. IMPRESSION: 1. Nasogastric tube in the stomach. 2. Small right pleural effusion with left basilar atelectasis and/or pneumonia. 3. Cardiomegaly. Reviewed, dictated and finalized at location A.
--- NOTE | ~2020-04-26 | US_ITS ---
EXAMINATION: US thoracentesis DATE: 05/01/2020 15:32 INDICATION: pleural effusion TECHNIQUE: The skin was prepped and draped in sterile fashion. 1% lidocaine was used for local anesth esia. Under ultrasound guidance, a 5 Fr catheter with trochar was advanced into the right pleural eff usion. Fluid was aspirated. The catheter was removed, and a dressing was applied. There were no immed iate complications. FINDINGS: Ultrasound images demonstrate a right pleural effusion and the catheter within the fluid. IMPRESSION: 1. Successful ultrasound-guided thoracentesis yielding 1000 mL of clear, yellow fluid. Reviewed, dictated and finalized at location A. IMPRESSION: 1. Successful ultrasound-guided thoracentesis yielding 1000 mL of clear, yello w fluid.
--- NOTE | ~2020-04-26 | XR_ITS ---
EXAMINATION: XR chest 1V portable DATE: 05/02/2020 05:45 INDICATION: Respiratory failure. TECHNIQUE: A single frontal view of the chest was obtained. COMPARISON: Chest single view 05/01/2020, chest CT 04/26/2020 FINDINGS: There are small pleural effusions. There are airspace opacities at right lung base and in l eft mid and lower lung zones. No pneumothorax. Cardiomegaly is noted. There are changes of heart valv e replacement. The endotracheal tube tip is 2.6 cm above the giovanni. The nasogastric tube tip is beyo nd the inferior margin of the radiograph, but at least to the stomach. IMPRESSION: 1. Stable small pleural effusions. 2. Airspace opacities at right lung base and in left mid and lower lung zones with worsening on the l eft, consistent with atelectasis versus pneumonia. 3. Cardiomegaly. Reviewed, dictated and finalized at location A. IMPRESSION: 1. Stable small pleural effusions. 2. Airspace opacities at right lung base and in left mid and lower lung zones w ith worsening on the left, consistent with atelectasis versus pneumonia. 3. Cardiomegaly.
--- NOTE | ~2020-04-26 | XR_ITS ---
EXAMINATION: XR chest 1V portable INDICATION: Shortness of breath and chest pain TECHNIQUE: Portable AP chest at 1051 hours COMPARISON: 05/04/2020 FINDINGS: A left internal jugular catheter ends with its tip in the proximal superior vena cava. The nasogastric tube has been removed. There is a small to moderate-sized right pleural effusion with sli ght improvement. Cardiomegaly persists. There is a persistent but improved mild interstitial pattern. There is no pneumothorax. There are changes of cardiac valve surgery. Right basilar airspace opaciti es persist without significant change. IMPRESSION: 1. Cardiomegaly with improving pulmonary edema. 2. Small to moderate-sized left pleural effusion, slightly improved. 3. Stable right basilar airspace opacity, consistent with atelectasis versus pneumonia. Reviewed, dictated and finalized at location A. IMPRESSION: 1. Cardiomegaly with improving pulmonary edema. 2. Small to moderate-sized left pleural effusion, slightly improved. 3. Stable right basilar airspace opacity, consistent with atelectasis versus pn eumonia.
--- NOTE | ~2020-04-26 | XR_ITS ---
EXAMINATION: XR chest 1V portable DATE: 04/29/2020 05:41 INDICATION: Respiratory failure. TECHNIQUE: A single frontal view of the chest was obtained. COMPARISON: Chest single view 04/28/2020, chest CT 04/26/2020 FINDINGS: There are small pleural effusions. There are airspace opacities in the mid and lower lung z ones. No pneumothorax. Cardiomegaly is noted. There are changes of heart valve replacement. The endot mylene tube tip is 3.9 cm above the giovanni. The nasogastric tube tip is beyond the inferior margin o f the radiograph, but at least to the stomach. IMPRESSION: 1. Small pleural effusions with improvement on the right and worsening on the left. 2. Airspace opacities in the mid and lower lung zones, consistent with atelectasis or less likely pne umonia. 3. Cardiomegaly. Reviewed, dictated and finalized at location A. IMPRESSION: 1. Small pleural effusions with improvement on the right and worsening on the l eft. 2. Airspace opacities in the mid and lower lung zones, consistent with atelecta sis or less likely pneumonia. 3. Cardiomegaly.
--- NOTE | ~2020-04-26 | CT_ITS ---
EXAMINATION: CT brain wo con INDICATION: Respiratory arrest, fall COMPARISON: 01/10/2020 TECHNIQUE: Standard unenhanced head CT. The dose-length product (DLP) was 605.33 mGy-cm. The mA was a djusted according to patient size. Iterative reconstruction technique was employed. FINDINGS: There is no intracranial hemorrhage, acute infarction, or abnormal mass lesion. 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 Also seen are prior lacunar infarcts of the left thalamus and bilatera l insula. The ventricles are normal. There is no abnormal mass effect or midline shift. The barraza-whit e matter differentiation is normal. The basal cisterns are patent. Changes in the globes are likely f rom ocular lens surgery. Chronic opacification of the paranasal sinuses is again noted. IMPRESSION: 1. Areas of prior infarction without acute intracranial abnormality. 2. Chronic sinusitis. Reviewed, dictated and finalized at location A.
--- NOTE | ~2020-04-26 | XR_ITS ---
EXAMINATION: XR chest 1V portable DATE: 04/30/2020 05:16 INDICATION: Respiratory failure. TECHNIQUE: A single frontal view of the chest was obtained. COMPARISON: Chest single view 04/29/2020, chest CT 04/26/2020 FINDINGS: There are moderate-sized pleural effusions. There are airspace opacities in the mid and low er lung zones with a basilar predominance. No pneumothorax. Cardiomegaly is noted. The endotracheal t ube tip is 1.7 cm above the giovanni. The nasogastric tube tip is beyond the inferior margin of the rad iograph, but at least to the stomach. There are changes of heart valve replacement. IMPRESSION: 1. Worsened moderate-sized pleural effusions. 2. Worsened airspace opacities in the mid and lower lung zones with a basilar predominance, consisten t with atelectasis or less likely pneumonia. 3. Cardiomegaly. Reviewed, dictated and finalized at location A. IMPRESSION: 1. Worsened moderate-sized pleural effusions. 2. Worsened airspace opacities in the mid and lower lung zones with a basilar p redominance, consistent with atelectasis or less likely pneumonia. 3. Cardiomegaly.
--- NOTE | ~2020-04-26 | XR_ITS ---
EXAMINATION: XR chest port-a-cath/central DATE: 05/03/2020 12:31 INDICATION: Central line placement. TECHNIQUE: A single frontal view of the chest was obtained. COMPARISON: Chest single view at 5:34 AM FINDINGS: There are small pleural effusions. There are airspace opacities at the lung bases. No pneum othorax. Cardiomegaly is noted. There are changes of heart valve replacement. The endotracheal tube t ip is 2.5 cm above the giovanni. A left internal jugular central venous catheter is seen with tip in th e superior vena cava. The nasogastric tube tip is beyond the inferior margin of the radiograph, but a t least to the stomach. IMPRESSION: 1. Central line tip in the superior vena cava. No pneumothorax. 2. Small pleural effusions with improvement on the left. 3. Improved airspace opacities at the lung bases, consistent with atelectasis versus pneumonia. 4. Cardiomegaly. Reviewed, dictated and finalized at location A. IMPRESSION: 1. Central line tip in the superior vena cava. No pneumothorax. 2. Small pleural effusions with improvement on the left. 3. Improved airspace opacities at the lung bases, consistent with atelectasis v ersus pneumonia. 4. Cardiomegaly.
--- NOTE | ~2020-04-26 | US_ITS ---
US renal BI 04/27/2020 16:09 Procedure: Realtime transabdominal ultrasound of the kidneys and bladder. Indication: Acute renal insufficiency. UTI. Comparison: No prior studies for comparison. Findings: Renal echotexture is normal bilaterally without hydronephrosis, contour deforming mass or r enal calculus. There is a left renal cyst measuring 2.5 cm. The right kidney measures 10.7 cm and lef t kidney measures 8.3 cm. Bladder not well visualized due to catheterization. Impression: 1: 2.5 cm left renal cyst. Reviewed, dictated and finalized at location A. Impression: 1: 2.5 cm left renal cyst.
--- NOTE | ~2020-04-26 | XR_ITS ---
EXAMINATION: XR abdomen/kub 1V DATE: 05/13/2020 21:41 INDICATION: Abdominal pain, nausea and vomiting TECHNIQUE: A supine view of the abdomen on 2 radiographs was obtained. COMPARISON: None. FINDINGS: Moderate amount of stool with residual oral contrast material scattered throughout the colon to the r ectum, bladder likely residual from recent modified barium swallow study. No dilated bowel to suggest obstruction. Lower mediastinal surgical clips likely related to prior coronary artery bypass graftin g. Atherosclerotic calcification along the abdominal aorta. IMPRESSION: 1. Moderate amount of colonic stool. Correlate clinically for constipation. No dilated bowel to sugge st obstruction. Reviewed, dictated and finalized at location A. IMPRESSION: 1. Moderate amount of colonic stool. Correlate clinically for constipation. No dilated bowel to suggest obstruction.
--- NOTE | ~2020-04-26 | XR_ITS ---
MODIFIED ESOPHAGRAM HISTORY: Recent intubation. Decreased level consciousness. TECHNIQUE: Modified barium esophagram was performed by speech pathologist under radiologist fluorosco pic guidance. This was recorded on tape. The exam was reviewed on 05/06/2020 14:20 CDT. The DAP for this procedure was 2.1 Gycm2. Fluoroscopy time is 2.5 minutes. FINDINGS: Lateral projection of the cervical spine demonstrates normal alignment. There is prematur e spill into the pharynx. There is laryngeal penetration with thin liquids as well as nectar liquids. No definite aspiration. There is follicular residue. IMPRESSION: 1: Mild laryngeal penetration without definite aspiration. 2: Please refer to speech pathologist report for additional detail. Reviewed, dictated and finalized at location A.
--- NOTE | ~2020-04-26 | XR_ITS ---
EXAMINATION: XR chest 1V portable EXAM DATE: 05/01/2020 15:42 INDICATION: Postthoracentesis. TECHNIQUE: Portable AP frontal chest x-ray was obtained. Comparison is made to prior examination from 05/01/2020. FINDINGS: The endotracheal tube and feeding tube are in position. Sternotomy wires are present withou t findings to suggest sternal dehiscence. Cardiac valve replacement. There is cardiomegaly and pulmon larisa vascular congestion. There are small bilateral pleural effusions, with decrease in size on the ri ght. Bibasilar opacity likely subsegmental atelectasis. Difficult to exclude left basilar pneumonia. There is no pneumothorax suspected. There are mild bony degenerative changes. IMPRESSION: 1. Small pleural effusions, adjacent compressive atelectasis. Pneumonia not excludable. 2. Cardiomegaly, congestive changes. 3. No evidence postprocedure pneumothorax. Reviewed, dictated and finalized at location A. IMPRESSION: 1. Small pleural effusions, adjacent compressive atelectasis. Pneumonia not ex cludable. 2. Cardiomegaly, congestive changes. 3. No evidence postprocedure pneumothorax.
--- NOTE | ~2020-04-26 | XR_ITS ---
EXAMINATION: XR chest 1V portable DATE: 04/27/2020 05:43 INDICATION: Respiratory failure TECHNIQUE: frontal view of the chest was obtained. COMPARISON: Chest radiograph and CT dated 04/26/2020 FINDINGS: Endotracheal tube tip 2.5 cm above the giovanni. Nasogastric tube extends below the left hemidiaphragm with distal tip collimated off the study. No significant interval change in opacities in the right mid to lower lung zone and left lower lung z one. No pulmonary edema or pneumothorax. Cardiomegaly. Median sternotomy wires and mediastinal surgic al clips are seen, likely from prior coronary artery bypass grafting. Aortic valve repair. IMPRESSION: 1. No significant interval change in moderate right and small left pleural effusions with associated atelectasis and/or pneumonia. 2. Cardiomegaly. Reviewed, dictated and finalized at location A. IMPRESSION: 1. No significant interval change in moderate right and small left pleural effu sions with associated atelectasis and/or pneumonia. 2. Cardiomegaly.
--- NOTE | ~2020-04-26 | US_ITS ---
EXAMINATION: US venous doppler [facility] DATE: 04/30/2020 15:19 INDICATION: Left arm swelling TECHNIQUE: Cheung scale images with and without compression and Doppler images of the left upper extrem ity veins were obtained. COMPARISON: None. FINDINGS: The left internal jugular vein, subclavian vein, axillary vein, brachial veins, basilic vein, cephali c vein, radial vein, and ulnar vein are patent.] IMPRESSION: 1. Patent left upper extremity veins. No evidence of deep venous thrombosis. Reviewed, dictated and finalized at location A.
--- NOTE | ~2020-04-26 | CT_ITS ---
EXAMINATION: CT chest wo con DATE: 04/26/2020 15:15 INDICATION: Pneumonia. TECHNIQUE: Computed tomography (CT) of the chest was performed without intravenous contrast. The dose -length product was 612.06 mGy-cm. Automated exposure control and iterative reconstruction technique were employed. COMPARISON: CT dated 04/01/2017 FINDINGS: There are small bilateral pleural effusions. Cardiomegaly. There is atherosclerosis of the aorta and coronary arteries. Cardiomegaly. There are valvular calcifications. Mild right paratracheal lymphadenopathy, likely reactive. Endotracheal tube present. NG tube in the stomach. Evaluation of l nikki parenchyma limited by motion artifact. There is a 3 mm left apical nodule, image 24. There is clarisse ateral lower lobe and right middle lobe airspace disease which may represent atelectasis and/or pneum onia. There are vascular calcifications in the upper abdomen. Gallbladder is not identified, likely s urgically absent. IMPRESSION: 1. Bilateral lower lobe and right middle lobe airspace disease, atelectasis versus pneumonia. 2: Bilateral pleural effusions. 3: Cardiomegaly with atherosclerosis. 4: Right paratracheal lymphadenopathy, likely reactive. 5: 3 mm left apical nodule, likely benign. Consider follow-up CT chest in 12 months. Reviewed, dictated and finalized at location A. IMPRESSION: 1. Bilateral lower lobe and right middle lobe airspace disease, atelectasis ryan kelly pneumonia. 2: Bilateral pleural effusions. 3: Cardiomegaly with atherosclerosis. 4: Right paratracheal lymphadenopathy, likely reactive. 5: 3 mm left apical nodule, likely benign. Consider [facility]
--- NOTE | ~2020-04-26 | XR_ITS ---
XR chest 1V portable DATE: 05/04/2020 05:39 INDICATION: Respiratory failure. TECHNIQUE: Portable AP chest on 05/04/2020 at 0519 hours COMPARISON: 05/03/2020 portable AP chest at 1225 hours FINDINGS: The endotracheal tube is no longer visualized. A nasogastric tube is noted in the stomach. Status post sternotomy/coronary bypass graft surgery. Cardiomegaly. There is pulmonary vascular conge stion and redistribution. There are bilateral central and lower lung infiltrates. Mild pleural effusi ons, right greater than left. IMPRESSION: ET tube not visualized NG tube in stomach Cardiomegaly, congestive changes. The congestive changes and infiltrates are increased since 05/03/2020 Reviewed, dictated and finalized at location A. IMPRESSION: ET tube not visualized NG tube in stomach Cardiomegaly, congestive changes. The congestive changes and infiltrates are in creased since 05/03/2020
--- NOTE | ~2020-04-26 | XR_ITS ---
EXAMINATION: XR chest ET placement INDICATION: Respiratory failure TECHNIQUE: Portable AP chest at 1152 hours COMPARISON: 02/05/2020 FINDINGS: Endotracheal tube has been inserted which ends at the origin of the right mainstem bronchus . A nasogastric tube has been inserted which is followed as far as the stomach. There is stable cardi omegaly. A small right pleural effusion is present. There are patchy right-sided airspace opacities. No pneumothorax is identified. IMPRESSION: 1. Endotracheal tube in the right mainstem bronchus. Repositioning is recommended. These findings and recommendations were discussed with Dr. Micheal Costa MD in the Emergency Department at 1212 h ours on 04/26/2020. 2. Small right pleural effusion. 3. Diffuse airspace opacities of the right lung, consistent with atelectasis versus pneumonia. 4. Cardiomegaly. Reviewed, dictated and finalized at location A. IMPRESSION: 1. Endotracheal tube in the right mainstem bronchus. Repositioning is recommend ed. These findings and recommendations were discussed with Dr. Micheal rothman MD in the Emergency Department at 1212 hours on 04/26/2020. 2. Small right pleural effusion. 3. Diffuse airspace opacities of the right lung, consistent with atelectasis ve rsus pneumonia. 4. Cardiomegaly.
--- NOTE | ~2020-04-26 | CT_ITS ---
EXAMINATION: CTA chest PE protocol DATE: 05/12/2020 08:16 INDICATION: Chest pain. Shortness of breath. TECHNIQUE: Computed tomography angiography (CTA) of the chest was performed with 100 mL Omnipaque-350 intravenous contrast timed to evaluate the pulmonary arteries. Coronal maximum intensity projection 3D-reconstructions were created by the technologist. Automated exposure control and iterative reconst ruction technique were employed. The dose-length product was 887.04 mGy-cm. COMPARISON: Chest CT 04/26/2020 FINDINGS: There are moderate-sized pleural effusions, right worse than left. There is dependent passi ve atelectasis bilaterally. Cardiomegaly is noted. There are changes of aortic valve replacement and coronary artery bypass grafting. There is no pulmonary embolus. The central pulmonary arteries are en larged, consistent with pulmonary arterial hypertension. There is a 14 mm cyst in left hepatic lobe. There are changes of cholecystectomy. Body wall edema is noted. There is a left internal jugular cent ral venous catheter with tip in superior vena cava. There is severe thoracic spondylosis. There is a chronic compression fracture of L2 vertebral body. There is mild chronic anterior wedging of multiple thoracic vertebral bodies. IMPRESSION: 1. No pulmonary embolus. Sensitivity is mildly decreased by motion artifact. 2. Moderate-sized pleural effusions, right worse than left. 3. Cardiomegaly. Reviewed, dictated and finalized at location A.
--- NOTE | ~2020-04-26 | XR_ITS ---
EXAMINATION: XR chest 1V portable DATE: 05/01/2020 05:49 INDICATION: Respiratory failure. TECHNIQUE: A single frontal view of the chest was obtained. COMPARISON: Chest single view 04/30/2020, chest CT 04/26/2020 FINDINGS: There are moderate-sized pleural effusions. There are airspace opacities in the mid and low er lung zones with a basilar predominance. No pneumothorax. Cardiomegaly is noted. There are changes of heart valve replacement. The endotracheal tube tip is 2.3 cm above the giovanni. The nasogastric tub e tip is beyond the inferior margin of the radiograph, but at least to the stomach. IMPRESSION: 1. Unchanged moderate-sized pleural effusions. 2. Unchanged airspace opacities in the mid and lower lung zones with a basilar predominance, consiste nt with atelectasis versus pneumonia. 3. Cardiomegaly. Reviewed, dictated and finalized at location A. IMPRESSION: 1. Unchanged moderate-sized pleural effusions. 2. Unchanged airspace opacities in the mid and lower lung zones with a basilar predominance, consistent with atelectasis versus pneumonia. 3. Cardiomegaly.
--- NOTE | ~2020-04-26 | XR_ITS ---
EXAMINATION: XR abdomen NG/feed tube insert INDICATION: Nasogastric tube placement TECHNIQUE: Portable AP KUB-NG at 1153 hours COMPARISON: 01/10/2020 FINDINGS: The nasogastric tube is in the stomach. The tip is in the distal body. Although the tip stone ears inferiorly displaced, gas in the stomach outlines its contour. The bowel gas pattern is normal. Cardiomegaly is noted. There is a small right pleural effusion. IMPRESSION: 1. Nasogastric tube in the stomach. Reviewed, dictated and finalized at location A.
--- NOTE | ~2020-04-26 | XR_ITS ---
XR chest 1V portable 04/28/2020 06:00 Indication: Respiratory failure Procedure: AP portable chest Comparison: Comparison to multiple prior studies sequentially, with oldest reviewed study dated 01/18. Findings: Status post median sternotomy for CABG. Endotracheal tube 2.3 cm above the giovanni. NG tube in the stomach. Cardiomegaly with pulmonary edema. There are bilateral pleural effusions, right great er than left. No pneumothorax. Impression: 1: Cardiomegaly with worsening pulmonary edema. 2: Small pleural effusions, right greater than left. Reviewed, dictated and finalized at location A. Impression: 1: Cardiomegaly with worsening pulmonary edema. 2: Small pleural effusions, right greater than left.
--- NOTE | ~2020-04-26 | US_ITS ---
EXAMINATION:US venous doppler LE BI INDICATION:Leg edema TECHNIQUE: Multiple grayscale, color flow and Doppler images of the lower extremity deep venous syste ms were obtained and reviewed. COMPARISON:No prior studies for comparison. FINDINGS: The common femoral, superficial femoral and popliteal veins demonstrate normal respiratory variation, augmentation and compressibility. Color flow is also seen within the posterior tibial, pe roneal, greater saphenous and profunda veins. IMPRESSION: 1: No lower extremity deep venous thrombosis. Reviewed, dictated and finalized at location A.
--- NOTE | ~2020-04-26 | US_ITS ---
EXAMINATION: US venous doppler [facility] DATE: 05/11/2020 13:03 INDICATION: Chest pain TECHNIQUE: Cheung scale images without and with compression and Doppler images of the bilateral lower e xtremity veins were obtained. COMPARISON: 04/26/2020 FINDINGS: The right common femoral vein, profunda femoral vein, femoral vein, popliteal vein, peroneal trunk, p osterior tibial veins, and greater saphenous vein are patent. The left common femoral vein, profunda femoral vein, femoral vein, popliteal vein, peroneal trunk, po sterior tibial veins, and greater saphenous vein are patent. IMPRESSION: 1. Patent bilateral lower extremity veins. No evidence of deep venous thrombosis. Reviewed, dictated and finalized at location A. IMPRESSION: 1. Patent bilateral lower extremity veins. No evidence of deep venous thrombosi s.
--- NOTE | ~2020-04-26 | US_ITS ---
EXAMINATION: US right upper quadrant DATE: 04/29/2020 13:03 INDICATION: Abnormal liver function tests. TECHNIQUE: Multiple grayscale and Doppler ultrasound images of the abdomen were obtained. COMPARISON: CT abdomen and pelvis 04/01/2017 FINDINGS: The visualized portions of the head and body of the pancreas are normal. The liver is sherron l without focal lesion. No liver surface nodularity. There is to-and-fro flow in the main portal vein . The gallbladder is not visualized. The common duct is normal and measures 5 mm. There is a right pl eural effusion. There is a small volume of ascites. IMPRESSION: 1. Gallbladder not visualized. The patient is intubated and could not be rolled. 2. Right pleural effusion. 3. Small volume of ascites. 4. To-and-fro flow in main portal vein, most likely secondary to right heart failure. Reviewed, dictated and finalized at location A. IMPRESSION: 1. Gallbladder not visualized. The patient is intubated and could not be rolled . 2. Right pleural effusion. 3. Small volume of ascites. 4. To-and-fro flow in main portal vein, most likely secondary to right heart fa ilure.
--- NOTE | 2020-04-26 11:25 | ECG_ITS ---
Measurements Intervals [place] Rate: 169 P: 94 VT: 110 QRS: -48 QRSD: 176 T: 130 QT: 399 QTc: 671 Interpretive Statements SINUS OR ECTOPIC ATRIAL TACHYCARDIA ATRIAL PREMATURE COMPLEX LEFT AXIS DEVIATION LEFT BUNDLE BRANCH BLOCK ANTEROSEPTAL INFARCT OR DUE TO LBBB ABNORMAL ECG Electronically Signed On 04-26-2020 12:00:15 CDT by Simon Malave D.O.
--- NOTE | 2020-04-26 11:33 | ED.GENADULT ---
HPI - General Adult General Chief complaint: Unspecified Stated complaint: RESPIRATORY FAILURE Time Seen by Provider: 04/26/20 11:29 History of Present Illness HPI narrative: History limited by medical condition EMS called to house for lift assist. Found patient to be in respiratory distress which quickly degenerated to respiratory failure. They attempted to intubate, but were not successful. On arrival to the ED she is awake gasping for air. Unable to speak or follow commands. On chart review she has had similar episodes in the past due to pneumonia/sepsis. Per her she had been in usual state prior to this morning. He tried to help her to the bathroom. She seemed weak and confused, but not complaining of SOB. She then fell to the ground and he was unable to pick her up. Related Data Home Medications Medication Instructions Recorded Confirmed ascorbic acid (vitamin C) 500 mg 1,000 mg PO DAILY 11/02/19 04/26/20 capsule multivitamin 1 cap PO DAILY 11/02/19 04/26/20 aspirin [Adult Low Dose Aspirin] 81 mg PO DAILY 01/11/20 04/26/20 montelukast 10 mg PO HS 01/11/20 04/26/20 bumetanide 1 mg PO BID 04/26/20 04/26/20 glucagon 1 mg SUBCUT Q20M PRN 04/26/20 04/26/20 Allergies Allergy/AdvReac Type Severity Reaction Status Date / Time Iodinated Contrast Media Allergy Severe Loss of Verified 01/11/20 09:38 Consciousness Contrast Media Allergy Severe Loss of Uncoded 11/02/19 13:12 Consciousness Review of Systems Review of Systems: ROS unobtainable: Yes unobtainable due to endotracheal tube and unobtainable due to medical condition [facility] Past Medical History Medical History Aortic valve stenosis Echocardiogram in December 2019 showed at least mild bioprosthetic aortic valve stenosis with an aortic valve area of 1.4 centimeter squared. Asthma Cerebrovascular accident (~2013) Following coronary artery bypass grafting in 2013, with mild right hand weakness. Chronic anemia Chronic kidney disease, stage 5 GFR in December 2019 was around 13. She does have right upper extremity fistula as she nears dialysis. Chronic obstructive pulmonary disease Patient is a lifelong nonsmoker, and this diagnosis is poorly documented in her electronic medical records. Congestive heart failure (~12/2019) Echocardiogram was a technically difficult study with limited views. Left ventricular systolic function was mildly reduced with an estimated ejection fraction of 50 to 55%, moderately increased left ventricular wall thickness, left ventricular septal wall motion abnormality related to bundle branch block, and grade 1 diastolic dysfunction. Coronary artery disease Status post three-vessel CABG in 2013 done at [facility]. Diverticulitis Essential hypertension Hyperlipidemia Ischemic cardiomyopathy Patient previously declined ICD went ejection fraction was much lower (recent EF of 50 to 55% on echocardiogram done in December 2019). Left bundle branch block Osteoarthritis Pseudomyxoma peritonei Shoulder fracture, left Surgically constructed arteriovenous fistula Type 2 diabetes mellitus Surgical History Surgical History History of aortic valve replacement with porcine valve History of bilateral cataract extraction History of exploratory laparotomy (~09/2016) Exploratory laparotomy with drainage of pelvic and right subphrenic abscesses with cultures growing Klebsiella pneumonia and Bacteroides fragilis. Suspected to be caused from perforated bowel. History of three vessel coronary artery bypass (~2013) GONZALEZ to LAD, saphenous vein to diagonal, saphenous vein to right posterior descending artery. Done at [facility]. Status post creation of arteriovenous fistula Right upper extremity. Family History Family History Mother Diabe
[2020-04-26 11:41] LABS: Hematocrit 25.5 % (37.0-47.0); Hemoglobin 7.8 g/dL (12.0-15.0); Mean Corpuscular HGB Conc 30.6 g/dl (32-36); Mean Corpuscular Hemoglobin 29.1 pg (26-34); Mean Corpuscular Volume 95.1 fl (80-100); Mean Platelet Volume 11.9 fl (7.4-10.4); Platelet Count Result 263 k/mm3 (150-375); Red Blood Count 2.68 M/mm3 (4.2-5.4); White Blood Count 13.2 K/mm3 (4.5-10.0)
[2020-04-26 11:45] LABS: Add Urine Microscopic? YES; Appearance Urine Turbid (Clear); Bacteria Urine 3+ /hpf; Bilirubin Urine Negative (Negative); Blood Urine 2+ (Negative); Color Urine Yellow (Yellow); Glucose Urine UA Negative (Negative); Ketones Urine Negative (Negative); Leukocyte Esterase Ur 2+ LEU/UL (Negative); Nitrate Urine Negative (Negative); Protein Urine 2+ mg/dL (Negative); RBC Urine >75 /hpf (0-2); Specific Grav Ur 1.015 (1.001-1.035); Squamous Epithelial Cell Urine Many /hpf (Few); Urobilinogen Urine Negative mg/dL (<2.0); WBC Clumps Urine Present /HPF; WBC Urine >75 /hpf
--- NOTE | 2020-04-26 11:53 | PC.NURSE ---
Patient Received 20 etomidate at 1119 and 50 Rocuronium at 1120 for intubation. Patient intubated with 7.5 tube at 25 @ the lip. Patient has NG tube placed at 65. MD at bedside for intubation at 1119.
[2020-04-26 11:57] LABS: INR 1.4; Partial Thromboplastin Time 28.4 SECONDS (22.3-36.8); Prothrombin Time 16.8 Seconds (11.1-14.7)
[2020-04-26 11:58] LABS: Band Neutrophils Percent 2 % (0-6); Lymphocytes Absolute Manual 0.52 K/mm3 (1.1-4.5); Monocytes Absolute Manual 0.52 K/mm3 (0.1-0.90); Monocytes Percent Manual 4 % (3-9); Neutrophils Absolute Manual 12.14 K/mm3 (1.7-7.2); Neutrophils Percent Manual 90 % (46-73); Nucleated Red Blood Cells 1 %; Total Cells Counted 100
[2020-04-26 11:59] LABS: Platelet Estimate Adequate (Adequate)
[2020-04-26 12:02] LABS: Helmet Cells 2+ (NORMAL)
[2020-04-26 12:03] LABS: Acanthocytes 2+ (NORMAL); Crenated RBC 2+ (NORMAL); Ovalocytes 2+ (NORMAL)
[2020-04-26 12:08] LABS: CRP 1.5 mg/dL (<1.0)
[2020-04-26] MEDS: MIDAZOLAM HCL 2 MG/2 ML VIAL IV PUSH ×2 (12:29→14:19)
[2020-04-26 12:44] LABS: Alanine Aminotransferase 37 U/L (4-35); Albumin Level 3.5 g/dL (3.5-5.1); Alkaline Phosphatase 125 U/L (38-126); Aspartate Amino Transferase 66 U/L (14-36); Bilirubin,Total 0.3 mg/dL (0.2-1.3); Blood Urea Nitrogen 115 mg/dL (7-17); Calcium 5.7 mg/dL (8.4-10.2); Carbon Dioxide 8 mmol/L (22-30); Estimated CRCL calculation 6 ml/min; Estimated Glomerular Filt Rate 4; Glucose 223 mg/dL (65-105)
[2020-04-26 12:49] LABS: Chloride 109 mmol/L (98-107); Potassium 4.7 mmol/L (3.4-5.0); Sodium 139 mmol/L (137-145)
[2020-04-26 13:25] LABS: Alveolar/Arterial O2 Gradient 416.5 mmHg; Base Excess ABG -22.1 mEq/l (+/-2.0); Fractional Inspired Oxygen 100 %; HCO3 ABG 7.9 mEq/l (22.0-26.0); Oxygen Content ABG 11.7 %vol (16.0-22.0); Oxygen Saturation ABG 99.2 % (95.0-100.0); Oxyhemoglobin 96.6 % THb (90.0-100.0); PCO2 ABG 34.1 mmHg (35.0-45.0); PO2 ABG 262.4 mmHg (80.0-100.0); PO2 FiO2 Ratio Arterial Blood 2.62 %; Total Hemoglobin 8.1 g/dL (12.0-18.0)
[2020-04-26 13:28] LABS: Device VENTILATOR; Site Drawn LEFT BRACHIAL; pH ABG 6.982 (7.350-7.450)
[2020-04-26 13:29] LABS: Arterial Blood Gas Vent Mode CMV; Arterial Blood Gas Ventilator rate 16 /MIN
[2020-04-26 13:30] LABS: Arterial Blood Gas PEEP 5 cmH2O; Arterial Blood Gas Pressure Support 0 cmH2O; Arterial Blood Gas Tidal Volume 420 ml
[2020-04-26] MEDS: SODIUM BICARBONATE 8.4% 50 MEQ/50 ML VIAL 100 MEQ IV PUSH ×2 (13:40→17:08)
--- NOTE | 2020-04-26 13:52 | PC.NURSE ---
Per hospitalist verbal order, hold second dose of Versed, do not give at this time.
--- NOTE | 2020-04-26 13:52 | WPDCNINT ---
Assessment and Plan Assessment and plan (1) Acute respiratory failure: Qualifiers: Respiratory failure complication: hypoxia Qualified Code(s): J96.01 - Acute respiratory failure with hypoxia Code(s): J96.00 - Acute respiratory failure, unspecified whether with hypoxia or hypercapnia Status: Acute Assessment and Plan: Acute Respiratory failure secondary to pneumonia, encephalopathy, baseline COPD Continue full mechanical ventilation support to prevent hypoxemia/hypercarbia and end organ damage. ABG and PCXR reviewed and will repeat in am. Low tidal volume ventilation strategy to prevent volutrauma Bronchodilators Check chest CT (2) Suspected COVID-19 virus infection: Code(s): Z20.828 - Contact with and (suspected) exposure to other viral communicable diseases Status: Acute Assessment and Plan: COVID-19 suspected. SARS-CoV-2 PCR sent and results pending Patient is in Airborne, Droplet and Contact Isolation (3) Sepsis: Code(s): A41.9 - Sepsis, unspecified organism Status: Acute Assessment and Plan: Secondary to pneumonia and UTI Check blood sputum and urine culture Empiric antibiotics Rocephin and azithromycin Check urine Legionella and pneumococcal antigen Recheck lactic acid in 4 hours May need vasopressors (4) Pneumonia: Code(s): J18.9 - Pneumonia, unspecified organism Status: Acute Assessment and Plan: See above (5) UTI (urinary tract infection): Code(s): N39.0 - Urinary tract infection, site not specified Status: Acute Assessment and Plan: See above (6) BARRON (acute kidney injury): Code(s): N17.9 - Acute kidney failure, unspecified Status: Acute Assessment and Plan: Patient has CKD 5 and was awaiting initiation of dialysis. She has AV graft in her right arm. Consult nephrology Patient will likely need dialysis [place] catheter for accurate I&Os Monitor electrolytes Treat acidosis (7) CKD (chronic kidney disease), stage V: Code(s): N18.5 - Chronic kidney disease, stage 5 Status: Acute Assessment and Plan: See above (8) Metabolic acidosis: Code(s): E87.2 - Acidosis Status: Acute Assessment and Plan: IV bicarb given in the ED IV fluids with bicarb Repeat ABG (9) Diabetes: Code(s): E11.9 - Type 2 diabetes mellitus without complications Status: Acute Assessment and Plan: Sliding scale insulin (10) Ischemic cardiomyopathy: Code(s): I25.5 - Ischemic cardiomyopathy Status: Acute Assessment and Plan: AVB -II, LBBB, CHF and ischemic cardiomyopathy, S/P bioprosthetic aortic valve Continue aspirin statin Patient not on beta-mamie as on patient ECHO 12/2019 Summary 1. Technically difficult study with limited views. Regional wall motionassessment limited due to poor endomyocardial border definition. 2. Left ventricular systolic function is mildly reduced, estimated at 50-55%. 3. There is moderately increased left ventricular wall thickness. 4. Left ventricular septal wall motion is abnormal with septal motion related to bundle branch block. 5. The left ventricular diastolic function is grade I diastolic dysfunction. 6. E/e' 53.5 is severely elevated. 7. Global longitudinal strain is moderately elevated at -11 %. 8. Left atrial chamber dimension is moderately enlarged. 9. There is at least mild bioprosthetic aortic valve stenosis abnormalgradients with a peak velocity of 352 cm/s, mean gradient of 24 mmHg, andaortic valve area of 1.4 cm2. 10. There is trace regurgitation of the not well visualized prostheticaortic valve. 11. The mitral valve has thickened leaflets and calcified leaflets. 12. There is moderate mitral valve stenosis. 13. There is mild mitral valve regurgitation. 14. The mitral valve annulus is severely calcified. 15. There is mild tricuspid valve regurgitation.
[2020-04-26 14:45] LABS: Basophils Percent Auto 0.1 % (0.2-1.2); Hematocrit 21.7 % (37.0-47.0); Immature Granulocyte Absolute 0.41 K/mm3 (0.00-0.031); Immature Granulocyte Percent A 2.8 % (0-0.5); Lymphocytes Absolute Auto 0.34 K/mm3 (0.9-3.2); Lymphocytes Percent Auto 2.3 % (18.3-44.2); Mean Corpuscular HGB Conc 27.6 g/dl (32-36); Mean Corpuscular Hemoglobin 29.1 pg (26-34); Mean Corpuscular Volume 105.3 fl (80-100); Mean Platelet Volume 11.2 fl (7.4-10.4); Monocytes Absolute Auto 0.6 K/mm3 (0.1-0.6); Monocytes Percent Auto 4.4 % (2.6-8.5); Neutrophils Absolute Auto 13.3 K/mm3 (1.3-6.7); Neutrophils Percent Auto 90.4 % (45.5-73.1); Nucleated Red Blood Cells Absolute Auto 0.2 K/mm3 (0.0-0.012); Nucleated Red Blood Cells Perc 1.4 % (0.0-0.2); Platelet Count Result 198 k/mm3 (150-375); Red Blood Count 2.06 M/mm3 (4.2-5.4); Red Cell Distribution Width 18.2 % (11.5-14.5); White Blood Count 14.7 K/mm3 (4.5-10.0)
[2020-04-26 14:57] LABS: Reflex Lactic Acid Yes or No Add Lactic
[2020-04-26 14:59] LABS: Platelet Estimate Adequate (Adequate)
[2020-04-26 15:00] LABS: Anisocytosis 2+ (NORMAL); Hypochromasia 2+ (NORMAL)
[2020-04-26 15:04] LABS: Blood Urea Nitrogen 96 mg/dL (7-17); Calcium 4.3 mg/dL (8.4-10.2); Carbon Dioxide 8 mmol/L (22-30); Chloride 88 mmol/L (98-107); Estimated CRCL calculation 8 ml/min; Estimated Glomerular Filt Rate 6; Glucose > 625 mg/dL (65-105); Potassium 3.7 mmol/L (3.4-5.0); Sodium 125 mmol/L (137-145)
[2020-04-26 15:40] LABS: Alveolar/Arterial O2 Gradient 320.2 mmHg; Base Excess ABG -20.2 mEq/l (+/-2.0); Fractional Inspired Oxygen 60 %; Oxygen Content ABG 9.4 %vol (16.0-22.0); Oxyhemoglobin 83.5 % THb (90.0-100.0); PCO2 ABG 34.8 mmHg (35.0-45.0); PO2 ABG 69.3 mmHg (80.0-100.0); PO2 FiO2 Ratio Arterial Blood 1.16 %
[2020-04-26 15:45] LABS: Arterial Blood Gas Vent Mode CMV; Arterial Blood Gas Ventilator rate 16 /MIN; Device VENTILATOR; Modified Allen's Test Pass; Oxygen Saturation ABG 84.7 % (95.0-100.0); Site Drawn LEFT RADIAL; Total Hemoglobin 7.9 g/dL (12.0-18.0); pH ABG 7.032 (7.350-7.450)
[2020-04-26 15:46] LABS: Arterial Blood Gas PEEP 5 cmH2O; Arterial Blood Gas Tidal Volume 420 ml
[2020-04-26] MEDS: SODIUM BICARBONATE 8.4% 150 MEQ in WATER, STERILE FOR INJECTION 950 ML 100 MEQ IV CONT (15:53)
[2020-04-26] MEDS: SODIUM CHLORIDE 0.9% IV 1,000 ML 999 ML IV CONT (15:53)
--- NOTE | 2020-04-26 15:56 | PM.CNNEP ---
Assessment and Plan Assessment and plan (1) CKD (chronic kidney disease), stage V: Code(s): N18.5 - Chronic kidney disease, stage 5 Status: Acute Assessment and Plan: The patient has chronic kidney disease. Her baseline GFR is now only 13. This is due to diabetes, hypertension, and vascular disease. (2) BARRON (acute kidney injury): Code(s): N17.9 - Acute kidney failure, unspecified Status: Acute Assessment and Plan: The patient has acute kidney injury. BUN and creatinine are much higher. She does have a soft blood pressure and looks like she has a septic syndrome, both of which can worsen the creatinine. The patient is getting antibiotics and IV fluids and support for her blood pressure. If things do not get better soon she might need to start dialysis. I do not want to start dialysis now because of her soft blood pressure. I do not think taking fluid off is going to help her. Her chest x-ray does not look that wet. I think most of a respiratory issue was due to pneumonia and sepsis. Her potassium is fine. (3) Suspected COVID-19 virus infection: Code(s): Z20.828 - Contact with and (suspected) exposure to other viral communicable diseases Status: Acute Assessment and Plan: Because of the pneumonia and severity of her illness she is getting a COVID-19 test. She is on isolation. (4) Encephalopathy: Code(s): G93.40 - Encephalopathy, unspecified Status: Acute Assessment and Plan: Etiology of this is unclear. Probably due to her systemic illness. CT of the head is unremarkable. (5) Sepsis: Code(s): A41.9 - Sepsis, unspecified organism Status: Acute Assessment and Plan: The patient seems to have septic syndrome. Lactic acid is okay. However her blood pressure is low and she has a metabolic acidosis. (6) Metabolic acidosis: Code(s): E87.2 - Acidosis Status: Acute Assessment and Plan: Bicarbonate level is very low at 9. PH as low as well. This is a combination of metabolic acidosis and respiratory acidosis as her bicarbonate level is very low and she has inadequate respiratory compensation. Her anion gap is 22. Her baseline and anion gap is about 16. So her delta anion gap is 6. Her baseline bicarbonate level is around 22. So her delta bicarb is 13. The her she has a combination metabolic acidosis some anion gap, some non anion gap. The non anion gap metabolic acidosis is probably from poor ammonia secretion. The anion gap metabolic acidosis could be from uremia. Lactic acid is normal. Her blood sugar is 500 so we will check a beta hydroxybutyrate. (7) Pneumonia: Code(s): J18.9 - Pneumonia, unspecified organism Status: Acute Assessment and Plan: The patient has evidence on chest x-ray. She is getting antibiotics. (8) Anemia: Code(s): D64.9 - Anemia, unspecified Status: Acute Assessment and Plan: She is anemic at baseline. Lower hemoglobin is lower. (9) Diabetes: Code(s): E11.9 - Type 2 diabetes mellitus without complications Status: Acute Assessment and Plan: She is currently on sliding-scale insulin. History of Present Illness Reason for Consult Consult date: 04/26/20 Chief Complaint Chief complaint: Acute respiratory failure/pneumonia History of Present Illness Narrative: Martha is a very pleasant lady who has multiple part medical problems including chronic kidney disease stage 5. She has a graft in placed in the right upper arm. She recently saw Dr. Young in December and fluid status was okay and she was not symptomatic so did not need to start dialysis. The patient was apparently well until this morning when she asked her for help to get up to the bathroom. Then she collapsed. They called 911 and had her brought over to the emergency room. She was very short of breath. She ended up being intubated. She did have
--- NOTE | 2020-04-26 16:30 | PM.IMHP ---
H&P: HPI History of Present Illness Chief complaint: Collapsed, minimally responsive. Narrative: Martha Reid is a 69-year-old female with multiple medical problems to include coronary artery disease status post three-vessel CABG, aortic stenosis status post bioprosthetic aortic valve replacement, chronic kidney disease narrowing dialysis with maturing right upper extremity fistula, hypertension, chronic anemia, and type 2 diabetes mellitus who presented to the emergency department earlier today via EMS from home for evaluation after the patient collapse and was minimally responsive. At the time my evaluation, she is intubated and sedated, however is aware enough to follow commands and nod and shake her head. A majority of this history, however, is obtained via a review of her electronic medical records as well as discussions with her via phone, with the patient's permission. Mrs. Reid' , Yariel, tells me that the patient has been in her usual state of health since her most recent hospitalization on 01/10 - 01/20/2020 at which time she was admitted for septic shock and respiratory failure due to influenza A and suspected pneumonia. She has not complained of feeling poorly over the past couple of days, and denies sick contacts. In fact, he tells me the patient has not left the house for well over a month's time. It was usual morning for the patient, she awoke and ate breakfast and sat down to watch television. Not long prior to arrival, she decided that she wanted to take a shower and he helped her to the shower chair. ?Her leg suddenly gave out and she fell like a noodle.? Yariel was able to keep her from falling, and in fact was able to get her to their bedroom at which time ?she faded.? EMS was summoned, and on their arrival she was reportedly pale, tachypneic, and with shallow respirations. Intubation was unsuccessful in the field and she was being ventilated via bag valve mask on arrival to the emergency department. She was ultimately intubated in the emergency department and workup performed revealed urinary tract infection and possible pneumonia as well as a mix respiratory in metabolic acidosis. Review of Systems Review of Systems: Narrative: A review of systems is unobtainable as the patient is currently sedated and intubated. She does, however, not in shakes her head and she specifically states that she has not been feeling poorly prior to this morning. She is having no pain. PMFSH Past Medical History Medical History (Updated 04/26/20 @ 17:09 by Kateryna Cordova PA-C) Aortic valve stenosis Echocardiogram in December 2019 showed at least mild bioprosthetic aortic valve stenosis with an aortic valve area of 1.4 centimeter squared. Asthma Cerebrovascular accident (~2013) Following coronary artery bypass grafting in 2013, with mild right hand weakness. Chronic anemia Chronic kidney disease, stage 5 GFR in December 2019 was around 13. She does have right upper extremity fistula as she nears dialysis. Chronic obstructive pulmonary disease Patient is a lifelong nonsmoker, and this diagnosis is poorly documented in her electronic medical records. Congestive heart failure (~12/2019) Echocardiogram was a technically difficult study with limited views. Left ventricular systolic function was mildly reduced with an estimated ejection fraction of 50 to 55%, moderately increased left ventricular wall thickness, left ventricular septal wall motion abnormality related to bundle branch block, and grade 1 diastolic dysfunction. Coronary artery disease Status post three-vessel CABG in 2013 done at [facility]. Diverticulitis Essential hypertension Hyperlipidemia Ischemic cardiomyopathy Patient previously declined ICD went ejection fraction was much lower (recent EF of 50 to 55% on echocardiogram done in December 2019). Left bundle branch block Osteoarthritis Pseudomyxoma peritonei Shoulder fracture, left Surgica
[2020-04-26] MEDS: MIDODRINE HCL 2.5 MG TABLET 5 MG PO (16:49)
[2020-04-26] MEDS: SODIUM BICARBONATE TAB 650 MG TABLET 1300 MG FEED TUBE (16:50)
[2020-04-26 17:00] LABS: Lactic Acid 2.3 mmol/L (0.7-2.1)
[2020-04-26 17:15] LABS: Glucose Point of Care 249 (65-105)
[2020-04-26] MEDS: INSULIN ASPART (*BKC) 100 UNITS/ML SUB-Q ×2 (17:17→23:09)
--- NOTE | 2020-04-26 17:58 | ADMGEN ---
This patient, Martha Reid, was admitted to Intensive Care Unit-4. Valuables list has been completed. Patient admitted from ED intubated, OG, palomino and PIV x2.
[2020-04-26 18:42] LABS: Glucose Point of Care 246 (65-105)
[2020-04-26 18:44] LABS: Hematocrit 24.8 % (37.0-47.0); Hemoglobin 7.7 g/dL (12.0-15.0); Mean Corpuscular Hemoglobin 28.8 pg (26-34); Mean Corpuscular Volume 92.9 fl (80-100); Mean Platelet Volume 11.2 fl (7.4-10.4); Platelet Count Result 250 k/mm3 (150-375); Red Blood Count 2.67 M/mm3 (4.2-5.4); Red Cell Distribution Width 16.1 % (11.5-14.5); White Blood Count 19.7 K/mm3 (4.5-10.0)
[2020-04-26 19:00] LABS: Blood Urea Nitrogen 115 mg/dL (7-17); Calcium 5.5 mg/dL (8.4-10.2); Carbon Dioxide 16 mmol/L (22-30); Chloride 105 mmol/L (98-107); Estimated CRCL calculation 7 ml/min; Estimated Glomerular Filt Rate 5; Glucose 253 mg/dL (65-105); Hemoglobin A1C 8.3 % (<5.7); Magnesium 1.4 mg/dL (1.6-2.3); Phosphorus 12.2 mg/dL (2.5-4.5); Potassium 4.1 mmol/L (3.4-5.0); Sodium 140 mmol/L (137-145)
[2020-04-26 19:06] LABS: NT Pro B Type Natriuretic Pept > 35000 PG/ML (5-100)
[2020-04-26] MEDS: HEPARIN SODIUM 5,000 UNITS/ML VIAL 5000 UNITS SUB-Q (20:23)
--- NOTE | 2020-04-26 22:45 | WPDPROCEDUR ---
Procedures Central Line Placement Right Femoral: Central Line Date: 04/26/20 Central Line Time: 22:45 Discussed w/ the patient/family/POA,the placement of a central venous catheter, including its clinical necessity/indication & associated potential risks, benifits and alternatives.: Yes The patient/family/POA understand(s) and acknowledge(s) the need to proceed with central venous catheter insertion as an important element of the patient's clinical management.: Yes Consent: Consent was obtained from her , Yariel, via phone. Time Out Performed: Yes Patient Position: supine Patient placed on monitor/pulse ox: Yes Provider Prep: mask, sterile gown, sterile gloves, Max. sterile barrier precautions, cap and hand hygiene Central line prep: Povidone-Iodine 1% Local anesthesia used: lidocaine 1% Amount of anesthesia used (ml): 5 Ultrasound used for placement: Yes Central line lumen inserted: triple Georgian: 7 Length (cm): 20 Depth of Insertion (cm): 3 Post procedure: sutured in place, good blood return, all ports aspirated, flushed, capped, tegaderm, antimicrobial disc and aseptic technique maintained throughout procedure Post procedure x-ray: other (n/a with femoral placement.) Patient tolerated procedure: well Complications: none Additional comments: Patient with fairly significant amount of yeast underneath the pannus. Consideration was given to having Dr. Loredo place a subclavian central line, however the patient has an AV fistula in the right upper extremity with impending dialysis, and it was felt that perhaps placing a central line in the left subclavian would not be the best idea. Left groin was prepped and left femoral vein was entered under ultrasound guidance. There was some difficulties advancing the guidewire due to edema and placement (approach was several centimeters below typical puncture site given the presence of Radha), requiring repositioning of the introducer needle. I was unable to dilate fully due to positioning and was unable to pass the catheter. Attention was then turned to the right groin, and the central line was placed easily and without complication.
[2020-04-26] MEDS: NOREPINEPHRINE 8 MG/D5W 250 ML 8 MG/250 ML BAG 9.4 MG IV CONT (23:06)
[2020-04-27] VITALS (32 sets, daily range): BP systolic 85–136; BP diastolic 52–87; PULSE 101–137; RESP 16–26; TEMP 35.5–37.3; O2SAT 97–100
[2020-04-27 00:18] LABS: Glucose Point of Care 210 (65-105)
[2020-04-27] MEDS: TOLNAFTATE 1% POWDER 45 GM BTL 1 APPLIC TOPICAL ×3 (00:43→20:26)
[2020-04-27] MEDS: SODIUM BICARBONATE 8.4% 150 MEQ in WATER, STERILE FOR INJECTION 950 ML 100 MEQ IV CONT (03:09)
[2020-04-27 05:15] LABS: Alveolar/Arterial O2 Gradient 179.5 mmHg; Base Excess ABG -10.5 mEq/l (+/-2.0); Carboxyhemoglobin 0.3 % THb (0-2.0); Fractional Inspired Oxygen 50 %; HCO3 ABG 14.5 mEq/l (22.0-26.0); Methemoglobin ABG 0.3 %THb (0-1.5); Oxygen Content ABG 11.4 %vol (16.0-22.0); Oxygen Saturation ABG 98.7 % (95.0-100.0); Oxyhemoglobin 95.7 % THb (90.0-100.0); PCO2 ABG 29.1 mmHg (35.0-45.0); PO2 ABG 144.3 mmHg (80.0-100.0); PO2 FiO2 Ratio Arterial Blood 2.89 %; Reduced Hemoglobin 3.7 %THb (0-5.0); Total Hemoglobin 8.2 g/dL (12.0-18.0); pH ABG 7.316 (7.350-7.450)
[2020-04-27 05:16] LABS: Arterial Blood Gas PEEP 5 cmH2O; Arterial Blood Gas Tidal Volume 420 ml; Arterial Blood Gas Vent Mode CMV; Arterial Blood Gas Ventilator rate 16 /MIN; Device VENTILATOR; Modified Allen's Test Pass; Site Drawn LEFT RADIAL
[2020-04-27 06:21] LABS: Basophils Percent Auto 0.2 % (0.2-1.2); Eosinophils Percent Auto 0.1 % (0-4.4); Hematocrit 21.9 % (37.0-47.0); Hemoglobin 7.1 g/dL (12.0-15.0); Immature Granulocyte Absolute 0.11 K/mm3 (0.00-0.031); Immature Granulocyte Percent A 0.7 % (0-0.5); Lymphocytes Absolute Auto 1.25 K/mm3 (0.9-3.2); Lymphocytes Percent Auto 7.4 % (18.3-44.2); Mean Corpuscular HGB Conc 32.4 g/dl (32-36); Mean Corpuscular Hemoglobin 29.2 pg (26-34); Mean Corpuscular Volume 90.1 fl (80-100); Mean Platelet Volume 11.1 fl (7.4-10.4); Monocytes Absolute Auto 1.1 K/mm3 (0.1-0.6); Monocytes Percent Auto 6.7 % (2.6-8.5); Neutrophils Absolute Auto 14.3 K/mm3 (1.3-6.7); Neutrophils Percent Auto 84.9 % (45.5-73.1); Nucleated Red Blood Cells Absolute Auto 0.2 K/mm3 (0.0-0.012); Nucleated Red Blood Cells Perc 1.4 % (0.0-0.2); Platelet Count Result 255 k/mm3 (150-375); Red Blood Count 2.43 M/mm3 (4.2-5.4); Red Cell Distribution Width 15.9 % (11.5-14.5); White Blood Count 16.8 K/mm3 (4.5-10.0)
[2020-04-27 06:33] LABS: Glucose Point of Care 156 (65-105)
[2020-04-27 06:37] LABS: Alanine Aminotransferase 37 U/L (4-35); Albumin Level 2.9 g/dL (3.5-5.1); Alkaline Phosphatase 105 U/L (38-126); Aspartate Amino Transferase 44 U/L (14-36); Bilirubin,Total 0.4 mg/dL (0.2-1.3); Blood Urea Nitrogen 120 mg/dL (7-17); Calcium 5.5 mg/dL (8.4-10.2); Carbon Dioxide 16 mmol/L (22-30); Chloride 104 mmol/L (98-107); Estimated CRCL calculation 6 ml/min; Estimated Glomerular Filt Rate 5; Glucose 165 mg/dL (65-105); Magnesium 1.4 mg/dL (1.6-2.3); Potassium 3.5 mmol/L (3.4-5.0); Sodium 139 mmol/L (137-145)
[2020-04-27 07:02] LABS: Burr Cells 1+ (NORMAL); Hypochromasia 2+ (NORMAL); Ovalocytes 1+ (NORMAL); Platelet Estimate Adequate (Adequate)
--- NOTE | 2020-04-27 08:00 | WPDINTPN ---
Progress Note: A&P Assessment and Plan (1) Acute respiratory failure: Qualifiers: Respiratory failure complication: hypoxia Qualified Code(s): J96.01 - Acute respiratory failure with hypoxia Code(s): J96.00 - Acute respiratory failure, unspecified whether with hypoxia or hypercapnia Status: Acute Assessment and Plan: Acute Respiratory failure secondary to pneumonia, encephalopathy, baseline COPD Continue full mechanical ventilation support to prevent hypoxemia/hypercarbia and end organ damage. ABG and PCXR reviewed and will repeat in am. Low tidal volume ventilation strategy to prevent volutrauma Bronchodilators Chest CT IMPRESSION: 1. Bilateral lower lobe and right middle lobe airspace disease, atelectasis versus pneumonia. 2: Bilateral pleural effusions. 3: Cardiomegaly with atherosclerosis. 4: Right paratracheal lymphadenopathy, likely reactive. 5: 3 mm left apical nodule, likely benign. Consider follow-up CT chest in 12 months. (2) Suspected COVID-19 virus infection: Code(s): Z20.828 - Contact with and (suspected) exposure to other viral communicable diseases Status: Acute Assessment and Plan: COVID-19 suspected. SARS-CoV-2 PCR sent and results pending Patient is in Airborne, Droplet and Contact Isolation (3) Sepsis: Code(s): A41.9 - Sepsis, unspecified organism Status: Acute Assessment and Plan: Secondary to pneumonia and UTI blood sputum and urine culture sent and pending Empiric antibiotics Rocephin and azithromycin Check urine Legionella and pneumococcal antigen Lactic acid has normalized Patient is on Levophed now. Continue titration to maintain map On conservative IV fluids with bicarb (4) Pneumonia: Code(s): J18.9 - Pneumonia, unspecified organism Status: Acute Assessment and Plan: See above (5) UTI (urinary tract infection): Code(s): N39.0 - Urinary tract infection, site not specified Status: Acute Assessment and Plan: See above (6) BARRON (acute kidney injury): Code(s): N17.9 - Acute kidney failure, unspecified Status: Acute Assessment and Plan: Patient has CKD 5 and was awaiting initiation of dialysis. She has AV graft in her right arm. Patient seen by nephrology Patient will likely need dialysis. [place] catheter for accurate I&Os Monitor electrolytes Treat acidosis (7) CKD (chronic kidney disease), stage V: Code(s): N18.5 - Chronic kidney disease, stage 5 Status: Acute Assessment and Plan: See above (8) Metabolic acidosis: Code(s): E87.2 - Acidosis Status: Acute Assessment and Plan: IV bicarb given in the ED IV fluids with bicarb Repeat ABG reviewed (9) Elevated troponin: Code(s): R79.89 - Other specified abnormal findings of blood chemistry Status: Acute Assessment and Plan: No history of chest pain prior to this incident. Elevation likely secondary to septic shock, BARRON and chronic kidney disease. EKG shows old left bundle-branch block Continue aspirin and statin this time Recent echo reviewed Will consult cardiology for further recommendation (10) Ischemic cardiomyopathy: Code(s): I25.5 - Ischemic cardiomyopathy Status: Acute Assessment and Plan: AVB -II, LBBB, CHF and ischemic cardiomyopathy, S/P bioprosthetic aortic valve Continue aspirin statin Patient not on beta-mamie as outpatient ECHO 12/2019 Summary 1. Technically difficult study with limited views. Regional wall motionassessment limited due to poor endomyocardial border definition. 2. Left ventricular systolic function is mildly reduced, estimated at 50-55%. 3. There is moderately increased left ventricular wall thickness. 4. Left ventricular septal wall motion is abnormal with septal motion related to bundle branch block. 5. The left ventricular diastolic function is grade I diastolic dysfunctio
[2020-04-27] MEDS: SODIUM BICARBONATE TAB 650 MG TABLET 1300 MG FEED TUBE ×3 (08:36→16:54)
[2020-04-27] MEDS: ASPIRIN 325 MG TABLET PO (08:36)
[2020-04-27] MEDS: MIDODRINE HCL 2.5 MG TABLET 5 MG PO ×3 (08:36→16:54)
[2020-04-27] MEDS: HEPARIN SODIUM 5,000 UNITS/ML VIAL 5000 UNITS SUB-Q ×2 (08:37→20:26)
[2020-04-27] MEDS: ATORVASTATIN 20 MG TABLET PO (08:37)
[2020-04-27] MEDS: PANTOPRAZOLE SODIUM IV 40 MG VIAL IV PUSH (08:37)
[2020-04-27 09:09] LABS: Glucose Point of Care 161 (65-105)
[2020-04-27 09:26] LABS: Beta-Hydroxybutyrate/Acetoacetate 1.06 mmol/L (0.02-0.27)
--- NOTE | 2020-04-27 10:24 | PM.CNCAR ---
Assessment and Plan Assessment and plan (1) Elevated troponin: Code(s): R79.89 - Other specified abnormal findings of blood chemistry Status: Acute Assessment and Plan: Multifactorial etiology, less likely acute coronary syndrome and/or plaque rupture as primary explanation. Most likely demand ischemia with known underlying CAD, acute on chronic renal failure, hypotension/septic shock on pressor support. COVID-19 pending. Conservative therapy at this time. hold off on systemic anticoagulation at this time. Check troponin in a.m.. Depending on patient's course / response of therapy may recheck echo on Wednesday. Despite her edema I do not believe she is in significant acute decompensated heart failure. Agree with no fluid removal with hemodialysis at this time. EF 50-55% by echo in December 2019, moderate pulmonary hypertension diastolic dysfunction. Patient is critically ill and has a complex past medical history. Further recommendations to follow. (2) Coronary artery disease involving [place] coronary artery of [place] heart: Qualifiers: Associated angina: without angina Qualified Code(s): I25.10 - Atherosclerotic heart disease of [place] coronary artery without angina pectoris Code(s): I25.10 - Atherosclerotic heart disease of [place] coronary artery without angina pectoris Status: Acute Assessment and Plan: As above, continue medical therapy aspirin, statin. May attempt aautious beta-mamie given tachycardia as BP allows. 12 lead EKG difficult to determine Exact rhythmbut suspect atrial activity buried within QRS supporting atrial flutter although cannot entirely exclude sinus tachycardia. (3) Acute respiratory failure: Qualifiers: Respiratory failure complication: hypoxia Qualified Code(s): J96.01 - Acute respiratory failure with hypoxia Code(s): J96.00 - Acute respiratory failure, unspecified whether with hypoxia or hypercapnia Status: Acute Assessment and Plan: Management per Critical Care Service. She is being treated for pneumonia. Wean ventilatory support as able. COVID-19 pending. She remains on isolation in this regard. (4) Septic shock: Code(s): A41.9 - Sepsis, unspecified organism; R65.21 - Severe sepsis with septic shock Status: Acute Assessment and Plan: Remains on Levophed. Continue antibiotics and supportive care. Wean pressors as tolerated. (5) Acute kidney injury superimposed on chronic kidney disease: Code(s): N17.9 - Acute kidney failure, unspecified; N18.9 - Chronic kidney disease, unspecified Status: Acute Assessment and Plan: Nephrology consulted. Acute on chronic renal failure stage 5. Anticipate initiation of hemodialysis for uremic encephalopathy at presentation. (6) History of aortic valve replacement with bioprosthetic valve: Code(s): Z95.3 - Presence of xenogenic heart valve Status: Acute Assessment and Plan: stable, echocardiogram recently intact function possible mild prosthetic stenosis. Do not suspect complicating hemodynamic status presently. (7) Suspected COVID-19 virus infection: Code(s): Z20.828 - Contact with and (suspected) exposure to other viral communicable diseases Status: Acute Assessment and Plan: Pending. Remains on isolation. (8) Pneumonia: Code(s): J18.9 - Pneumonia, unspecified organism Status: Acute Assessment and Plan: As above. Per Critical Care Service. (9) Acute on chronic anemia: Code(s): D64.9 - Anemia, unspecified Status: Acute Assessment and Plan: Monitor H&H. No signs of bleeding. Secondary to chronic kidney disease. (10) LBBB (left bundle branch block): Code(s): I44.7 - Left bundle-branch block, unspecified Status: Acute Assessment and Plan: Chronic. History of Present Illness History of Present Illness Consult date/time
--- NOTE | 2020-04-27 11:02 | ECG_ITS ---
Measurements Intervals [place] Rate: 136 P: 104 NV: 186 QRS: -53 QRSD: 169 T: 126 QT: 407 QTc: 614 Interpretive Statements SINUS OR ECTOPIC ATRIAL TACHYCARDIA LEFT AXIS DEVIATION LEFT BUNDLE BRANCH BLOCK ANTEROSEPTAL INFARCT OR DUE TO LBBB INFERIOR INFARCT OR DUE TO LBBB BASELINE ARTIFACT- V4, V6 ABNORMAL ECG Electronically Signed On 04-27-2020 15:30:57 CDT by Simon Malave D.O.
[2020-04-27] MEDS: CALCIUM CHLOR 1,000MG/100ML NS 1,000 MG/100 ML BAG 100 MG IVPB (11:09)
[2020-04-27] MEDS: DEXTROSE 5%/0.45% SOD CHL 1,000 ML 75 ML IV CONT (11:10)
[2020-04-27] MEDS: INSULIN HUMAN REGULAR (*BKC) 100 UNITS in SODIUM CHLORIDE 0.9% IV 99 ML IV CONT (11:26)
--- NOTE | 2020-04-27 11:50 | PM.PNNEP ---
Progress Note: A&P Assessment and Plan (1) CKD (chronic kidney disease), stage V: Code(s): N18.5 - Chronic kidney disease, stage 5 Status: Acute Assessment and Plan: The patient has chronic kidney disease. Her baseline GFR is now only 13. This is due to diabetes, hypertension, and vascular disease. (2) BARRON (acute kidney injury): Code(s): N17.9 - Acute kidney failure, unspecified Status: Acute Assessment and Plan: The patient has acute kidney injury. This is on top of severe chronic kidney disease. Her creatinine and BUN are worse. Her urine output is very low. She is not showing any trend toward improvement. I think she is going to need dialysis. I talked with Dr. Mcguire about this. She has a working right upper arm graft. I will initiate dialysis today with just a 2hour treatment. Because she has severe CKD, I want to start her up as a new chronic start. No sign of fluid overload and her blood pressure is low so I will not take any fluid off today. (3) Suspected COVID-19 virus infection: Code(s): Z20.828 - Contact with and (suspected) exposure to other viral communicable diseases Status: Acute Assessment and Plan: Because of the pneumonia and severity of her illness she is getting a COVID-19 test. This is still pending. She is on isolation. (4) Encephalopathy: Code(s): G93.40 - Encephalopathy, unspecified Status: Acute Assessment and Plan: She seemed to do be doing better yesterday with the sedation holiday. (5) Sepsis: Code(s): A41.9 - Sepsis, unspecified organism Status: Acute Assessment and Plan: The patient seems to have septic syndrome. Lactic acid was normal than high.. However her blood pressure is low and she has a metabolic acidosis. (6) Metabolic acidosis: Code(s): E87.2 - Acidosis Status: Acute Assessment and Plan: Bicarbonate level is improved with the bicarb drip. Anion gap has improved from 22-19. Her baseline is 16. While she is sick her albumin may drop so her true normal anion gap might be lower than this. Beta hydroxybutyrate was barely positive but this would be contributing to her anion gap. Same with a lactic acid. I think uremic toxins is the main reason that the anion gap is high though. (7) Pneumonia: Code(s): J18.9 - Pneumonia, unspecified organism Status: Acute Assessment and Plan: The patient has evidence on chest x-ray. She is getting antibiotics. (8) Anemia: Code(s): D64.9 - Anemia, unspecified Status: Acute Assessment and Plan: She is anemic at baseline. Lower hemoglobin is up and down. Transfuse as needed (9) Diabetes: Code(s): E11.9 - Type 2 diabetes mellitus without complications Status: Acute Assessment and Plan: She is currently on an insulin drip. Subjective Date/time seen: 04/27/20 11:50 Interval history: Patient is sedated. She did get a sedation holiday and responded to directions yesterday. Today the patient's blood pressure is a little bit lower. She is requiring Levophed for this. She is still intubated. Review of Systems Review of Systems: ROS unobtainable: Yes unobtainable due to endotracheal tube Exam Narrative: Exam Narrative: WDWN in NAD skin no rash head ncat lungs mildly coarse at the bases cor reg no rub or gallop abd BS+ nontender and soft ext no edema. Objective Data Vital Signs Vital Signs: Vital Signs - 24 hr 04/26/20 12:13 04/26/20 13:03 04/26/20 13:10 Temperature Pulse Rate 126 H 114 H 114 H Respiratory Rate 16 20 Blood Pressure 95/66 L 104/62 Pulse Oximetry 98 100 98 04/26/20 13:49 04/26/20 14:06 04/26/20 14:50 Temperature Pulse Rate 142 H 119 H 117 H Respiratory Rate 21 H 20 20 Blood Pressure 107/57 L 90/60 L Pulse Oximetry 93 94 19 L 04/26/20 16:00 04/26/20 17:07 04/26/20 18:00 Temperature Puls
[2020-04-27 11:53] LABS: Add Urine Microscopic? YES; Appearance Urine Turbid (Clear); Bacteria Urine 4+ /hpf; Bilirubin Urine Negative (Negative); Blood Urine 1+ (Negative); Color Urine Yellow (Yellow); Glucose Urine UA 1+ mg/dL (Negative); Ketones Urine Negative (Negative); Leukocyte Esterase Ur 3+ LEU/UL (NEGATIVE); Nitrate Urine Negative (Negative); Protein Urine 2+ mg/dL (Negative); RBC Urine 51-75 /hpf (0-2); Specific Grav Ur 1.012 (1.001-1.035); Urobilinogen Urine Negative mg/dL (<2.0); WBC Clumps Urine Present /HPF; WBC Urine >75 /hpf (0-3)
[2020-04-27 11:59] LABS: Hemoglobin A1C 8.2 % (<5.7)
[2020-04-27 12:15] LABS: Blood Urea Nitrogen 121 mg/dL (7-17); Calcium 5.6 mg/dL (8.4-10.2); Carbon Dioxide 18 mmol/L (22-30); Chloride 101 mmol/L (98-107); Estimated CRCL calculation 7 ml/min; Estimated Glomerular Filt Rate 5; Glucose 155 mg/dL (65-105); Magnesium 1.4 mg/dL (1.6-2.3); Phosphorus 11.8 mg/dL (2.5-4.5); Potassium 3.6 mmol/L (3.4-5.0); Sodium 138 mmol/L (137-145)
[2020-04-27] MEDS: CALCIUM ACETATE 667 MG TABLET FEED TUBE ×2 (12:26→16:54)
[2020-04-27 13:54] LABS: Hepatitis B Surface Antigen Negative (Negative)
[2020-04-27] MEDS: METOPROLOL TARTRATE INJ 5 MG/5 ML VIAL IV PUSH (14:09)
[2020-04-27 14:11] LABS: Hepatitis B Surface Anti Res Negative; Hepatitis C Virus Antibody Negative (Negative)
[2020-04-27] MEDS: MAGNESIUM SULF 2 GM/WATER 50ML 2 GM/50 ML BAG IVPB (14:42)
[2020-04-27] MEDS: SODIUM BICARBONATE 8.4% 50 MEQ/50 ML VIAL 100 MEQ IV PUSH (14:42)
[2020-04-27 14:53] LABS: Alveolar/Arterial O2 Gradient 177.5 mmHg; Base Excess ABG -13.3 mEq/l (+/-2.0); Fractional Inspired Oxygen 40 %; HCO3 ABG 11.7 mEq/l (22.0-26.0); Oxygen Content ABG 9.7 %vol (16.0-22.0); Oxygen Saturation ABG 95.1 % (95.0-100.0); Oxyhemoglobin 90.5 % THb (90.0-100.0); PO2 ABG 80.1 mmHg (80.0-100.0); pH ABG 7.306 (7.350-7.450)
[2020-04-27 14:54] LABS: Device VENTILATOR; Modified Allen's Test Pass; Site Drawn RIGHT RADIAL; Total Hemoglobin 7.5 g/dL (12.0-18.0)
[2020-04-27 14:55] LABS: Arterial Blood Gas PEEP 5 cmH2O; Arterial Blood Gas Tidal Volume 420 ml; Arterial Blood Gas Vent Mode CMV; Arterial Blood Gas Ventilator rate 16 /MIN
--- NOTE | 2020-04-27 14:57 | PM.EVENT ---
Event Note Event Note Event Note: Patient continues to be hypertensive. Vasopressin and stress dose steroids added. Additional bicarb given for acidosis. Discussed with nephrology earlier plan to start dialysis today. We are hoping the patient will tolerate dialysis otherwise she may need transfer to a outside facility for CRRT. Patient in atrial tachycardia 5 mg of Lopressor given which showed irregular rhythm suggestive of atrial fibrillation. Will start amnio bolus and drip. Replace magnesium. Azithromycin discontinued and switched to doxycycline. Continue insulin infusion monitor labs and beta hydroxybutyrate level. Monitor CBCs
[2020-04-27] MEDS: VASOPRESSIN INJ 100 UNITS in DEXTROSE 5% 95 ML IV CONT (15:05)
[2020-04-27] MEDS: AMIODARONE 150 MG/D5W 100 ML 150 MG/100 ML BAG 600 MG IV CONT (15:07)
[2020-04-27] MEDS: AMIODARONE 360 MG/D5W 200 ML 360 MG/200 ML BAG 33.3 MG IV CONT (15:07)
--- NOTE | 2020-04-27 16:03 | P.PNIM_ITS ---
Progress Note: A&P Assessment and Plan (1) Acute respiratory failure: Qualifiers: Respiratory failure complication: hypoxia Qualified Code(s): J96.01 - Acute respiratory failure with hypoxia Code(s): J96.00 - Acute respiratory failure, unspecified whether with hypoxia or hypercapnia Status: Acute Assessment and Plan: * Precipitating etiology is not entirely clear, as patient's reports that she has been in her usual state of health. * Chest x-ray does show findings concerning for pneumonia and she will be empirically treated for such. * Reportedly she has underlying COPD however this is poorly documented and she is a lifelong nonsmoker. * Pulmonary embolism is also a consideration. Chest CT was unable to be done with contrast given her chronic kidney disease. Instead, we will perform lower extremity venous Doppler ultrasounds and consider V/Q scan thereafter. No empiric anticoagulation given profound anemia (hemoglobin 6.0, pending confirmation). * Continue mechanical ventilation per gaming surveillance observer. ____04/27/20 16:03 patient is 69-year-old female with history of coronary a rtery disease and chronic kidney disease stage 5 due to diabetes and hypertension, patient was found unresponsive at home EMS was called patient was and respiratory distress and attempt to intubation was unsuccessful patient was brought to emergency department on BiPAP still struggling patient was intubated and currently on vent. Concerned patient may be positive for COVID-19 under isolation and droplet precaution in ICU, patient is seen by Dr. Zarate recommending patient will need emergent dialysis, her BP is very low, will not remove any fluid (2) Sepsis: Code(s): A41.9 - Sepsis, unspecified organism Status: Acute Assessment and Plan: * On admission and supported by tachycardia, tachypnea, relative hypotension, and lactic acidosis. * Lactic acid level will be trended and blood cultures have been obtained and are pending. * At this juncture her blood pressures are stable, but will monitor closely in case she needs vasopressors. (3) Pneumonia: Code(s): J18.9 - Pneumonia, unspecified organism Status: Acute Assessment and Plan: * Atelectasis versus pneumonia noted on chest CT. * Will empirically treat with azithromycin and ceftriaxone. * Sputum to be attempted for culture. * Specimen sent for urinary antigens. * SARS-CoV-2 swab pending, thus will initiate contact, droplet, and airborne isolation. (4) Urinary tract infection: Code(s): N39.0 - Urinary tract infection, site not specified Status: Acute Assessment and Plan: * Empiric ceftriaxone, pending urine culture. (5) Metabolic acidosis: Code(s): E87.2 - Acidosis Status: Acute Assessment and Plan: * ABG consistent with mixed respiratory and metabolic acidosis. * Vent management is per the gaming surveillance observer. * She is currently on a bicarbonate drip as well. * No ketones in urine thus DKA not likely. (6) Acute kidney injury superimposed on chronic kidney disease: Code(s): N17.9 - Acute kidney failure, unspecified; N18.9 - Chronic kidney disease, unspecified Status: Acute Assessment and Plan: * Likely multifactorial in etiology to include to include possible ATN from
--- NOTE | 2020-04-27 16:03 | PM.IMPN ---
Progress Note: A&P Assessment and Plan (1) Acute respiratory failure: Qualifiers: Respiratory failure complication: hypoxia Qualified Code(s): J96.01 - Acute respiratory failure with hypoxia Code(s): J96.00 - Acute respiratory failure, unspecified whether with hypoxia or hypercapnia Status: Acute Assessment and Plan: Precipitating etiology is not entirely clear, as patient's reports that she has been in her usual state of health. Chest x-ray does show findings concerning for pneumonia and she will be empirically treated for such. Reportedly she has underlying COPD however this is poorly documented and she is a lifelong nonsmoker. Pulmonary embolism is also a consideration. Chest CT was unable to be done with contrast given her chronic kidney disease. Instead, we will perform lower extremity venous Doppler ultrasounds and consider V/Q scan thereafter. No empiric anticoagulation given profound anemia (hemoglobin 6.0, pending confirmation). Continue mechanical ventilation per dough mixer operator. ____04/27/20 16:03 patient is 69-year-old female with history of coronary artery disease and chronic kidney disease stage 5 due to diabetes and hypertension, patient was found unresponsive at home EMS was called patient was and respiratory distress and attempt to intubation was unsuccessful patient was brought to emergency department on BiPAP still struggling patient was intubated and currently on vent. Concerned patient may be positive for COVID-19 under isolation and droplet precaution in ICU, patient is seen by Dr. Zarate recommending patient will need emergent dialysis, her BP is very low, will not remove any fluid (2) Sepsis: Code(s): A41.9 - Sepsis, unspecified organism Status: Acute Assessment and Plan: On admission and supported by tachycardia, tachypnea, relative hypotension, and lactic acidosis. Lactic acid level will be trended and blood cultures have been obtained and are pending. At this juncture her blood pressures are stable, but will monitor closely in case she needs vasopressors. (3) Pneumonia: Code(s): J18.9 - Pneumonia, unspecified organism Status: Acute Assessment and Plan: Atelectasis versus pneumonia noted on chest CT. Will empirically treat with azithromycin and ceftriaxone. Sputum to be attempted for culture. Specimen sent for urinary antigens. SARS-CoV-2 swab pending, thus will initiate contact, droplet, and airborne isolation. (4) Urinary tract infection: Code(s): N39.0 - Urinary tract infection, site not specified Status: Acute Assessment and Plan: Empiric ceftriaxone, pending urine culture. (5) Metabolic acidosis: Code(s): E87.2 - Acidosis Status: Acute Assessment and Plan: ABG consistent with mixed respiratory and metabolic acidosis. Vent management is per the dough mixer operator. She is currently on a bicarbonate drip as well. No ketones in urine thus DKA not likely. (6) Acute kidney injury superimposed on chronic kidney disease: Code(s): N17.9 - Acute kidney failure, unspecified; N18.9 - Chronic kidney disease, unspecified Status: Acute Assessment and Plan: Likely multifactorial in etiology to include to include possible ATN from sepsis, hypovolemia due to anemia +/- 3rd spacing. May need initiation of dialysis, and thus will consult Nephrology. Continue cautious IV fluid rehydration. Avoid nephrotoxic agents. Monitor strict I/O. (7) Type 2 diabetes mellitus: Code(s): E11.9 - Type 2 diabetes mellitus without complications Status: Acute Asses
[2020-04-27] MEDS: HYDROCORTISONE SODIUM SUCCINATE 100 MG/2 ML VIAL 50 MG IV PUSH (16:55)
[2020-04-27] MEDS: NOREPINEPHRINE 8 MG/D5W 250 ML 8 MG/250 ML BAG 37.5 MG IV CONT (17:09)
[2020-04-27] MEDS: EPOETIN ALFA 10,000 UNITS/ML VIAL 10000 UNITS IV PUSH (17:15)
[2020-04-27 18:31] LABS: Basophils Absolute Auto 0.1 K/mm3 (0.0-0.1); Basophils Percent Auto 0.2 % (0.2-1.2); Eosinophils Percent Auto 0.1 % (0-4.4); Hematocrit 25.3 % (37.0-47.0); Hemoglobin 8.3 g/dL (12.0-15.0); Immature Granulocyte Absolute 0.19 K/mm3 (0.00-0.031); Immature Granulocyte Percent A 0.9 % (0-0.5); Lymphocytes Absolute Auto 0.81 K/mm3 (0.9-3.2); Mean Corpuscular HGB Conc 32.8 g/dl (32-36); Mean Corpuscular Hemoglobin 28.9 pg (26-34); Mean Corpuscular Volume 88.2 fl (80-100); Mean Platelet Volume 11.1 fl (7.4-10.4); Monocytes Absolute Auto 1.1 K/mm3 (0.1-0.6); Monocytes Percent Auto 5.6 % (2.6-8.5); Neutrophils Percent Auto 89.2 % (45.5-73.1); Nucleated Red Blood Cells Absolute Auto 0.4 K/mm3 (0.0-0.012); Nucleated Red Blood Cells Perc 1.9 % (0.0-0.2); Platelet Count Result 311 k/mm3 (150-375); Red Blood Count 2.87 M/mm3 (4.2-5.4); White Blood Count 20.2 K/mm3 (4.5-10.0)
[2020-04-27 18:43] LABS: Anisocytosis 1+ (NORMAL); Hypochromasia 1+ (NORMAL); Platelet Estimate Adequate (Adequate)
[2020-04-27 18:43] LABS: Blood Urea Nitrogen 79 mg/dL (7-17); Calcium 6.5 mg/dL (8.4-10.2); Carbon Dioxide 27 mmol/L (22-30); Chloride 97 mmol/L (98-107); Estimated CRCL calculation 10 ml/min; Estimated Glomerular Filt Rate 8; Glucose 110 mg/dL (65-105); Potassium 3.1 mmol/L (3.4-5.0); Sodium 138 mmol/L (137-145)
[2020-04-27 18:47] LABS: Beta-Hydroxybutyrate/Acetoacetate 0.35 mmol/L (0.02-0.27)
[2020-04-27 19:05] LABS: Glucose Point of Care 148 (65-105)
[2020-04-27 19:05] LABS: Glucose Point of Care 175 (65-105)
[2020-04-27 19:05] LABS: Glucose Point of Care 164 (65-105)
[2020-04-27 19:05] LABS: Glucose Point of Care 147 (65-105)
[2020-04-27] MEDS: INSULIN GLARGINE (*BKC) 100 UNITS/ML 10 UNITS SUB-Q (21:22)
[2020-04-27] MEDS: POTASSIUM CHLORIDE 20 MEQ PACKET (FOR LIQUID) 40 MEQ PO (21:23)
[2020-04-28] VITALS (40 sets, daily range): BP systolic 83–136; BP diastolic 48–113; PULSE 91–139; RESP 16–29; TEMP 35.5–36.4; O2SAT 98–100
[2020-04-28] MEDS: HYDROCORTISONE SODIUM SUCCINATE 100 MG/2 ML VIAL 50 MG IV PUSH ×5 (00:25→23:46)
[2020-04-28 00:45] LABS: Glucose Point of Care 91 (65-105)
[2020-04-28 00:45] LABS: Glucose Point of Care 138 (65-105)
[2020-04-28 00:45] LABS: Glucose Point of Care 169 (65-105)
[2020-04-28] MEDS: AMIODARONE 360 MG/D5W 200 ML 360 MG/200 ML BAG 16.7 MG IV CONT ×2 (03:11→15:09)
[2020-04-28 05:10] LABS: Alveolar/Arterial O2 Gradient 108.3 mmHg; Base Excess ABG -7.6 mEq/l (+/-2.0); Carboxyhemoglobin 0.3 % THb (0-2.0); Fractional Inspired Oxygen 40 %; Methemoglobin ABG 0.3 %THb (0-1.5); Oxygen Content ABG 11.3 %vol (16.0-22.0); Oxyhemoglobin 95.9 % THb (90.0-100.0); PCO2 ABG 25.6 mmHg (35.0-45.0); PO2 ABG 147.5 mmHg (80.0-100.0); PO2 FiO2 Ratio Arterial Blood 3.69 %; Reduced Hemoglobin 3.5 %THb (0-5.0); Site Drawn LEFT RADIAL; Total Hemoglobin 8.1 g/dL (12.0-18.0); pH ABG 7.413 (7.350-7.450)
[2020-04-28 05:11] LABS: Device VENTILATOR; Modified Allen's Test Pass
[2020-04-28 05:12] LABS: Arterial Blood Gas PEEP 5 cmH2O; Arterial Blood Gas Tidal Volume 420 ml; Arterial Blood Gas Vent Mode CMV; Arterial Blood Gas Ventilator rate 16 /MIN
[2020-04-28 05:25] LABS: Basophils Percent Auto 0.1 % (0.2-1.2); Hematocrit 23.5 % (37.0-47.0); Hemoglobin 7.6 g/dL (12.0-15.0); Immature Granulocyte Absolute 0.14 K/mm3 (0.00-0.031); Immature Granulocyte Percent A 0.7 % (0-0.5); Lymphocytes Absolute Auto 0.68 K/mm3 (0.9-3.2); Lymphocytes Percent Auto 3.3 % (18.3-44.2); Mean Corpuscular HGB Conc 32.3 g/dl (32-36); Mean Corpuscular Hemoglobin 29.2 pg (26-34); Mean Corpuscular Volume 90.4 fl (80-100); Mean Platelet Volume 11.5 fl (7.4-10.4); Monocytes Absolute Auto 0.6 K/mm3 (0.1-0.6); Neutrophils Absolute Auto 19.3 K/mm3 (1.3-6.7); Neutrophils Percent Auto 92.9 % (45.5-73.1); Nucleated Red Blood Cells Absolute Auto 0.4 K/mm3 (0.0-0.012); Nucleated Red Blood Cells Perc 1.9 % (0.0-0.2); Platelet Count Result 268 k/mm3 (150-375); Red Cell Distribution Width 16.7 % (11.5-14.5); White Blood Count 20.8 K/mm3 (4.5-10.0)
[2020-04-28 05:40] LABS: Glucose Point of Care 198 (65-105)
[2020-04-28 05:42] LABS: Alanine Aminotransferase 72 U/L (4-35); Albumin Level 2.9 g/dL (3.5-5.1); Alkaline Phosphatase 264 U/L (38-126); Aspartate Amino Transferase 79 U/L (14-36); Bilirubin,Total 0.7 mg/dL (0.2-1.3); Blood Urea Nitrogen 89 mg/dL (7-17); Calcium 5.9 mg/dL (8.4-10.2); Carbon Dioxide 18 mmol/L (22-30); Chloride 96 mmol/L (98-107); Estimated CRCL calculation 9 ml/min; Estimated Glomerular Filt Rate 6; Glucose 225 mg/dL (65-105); Magnesium 1.7 mg/dL (1.6-2.3); Phosphorus 8.8 mg/dL (2.5-4.5); Sodium 134 mmol/L (137-145)
[2020-04-28] MEDS: NOREPINEPHRINE 8 MG/D5W 250 ML 8 MG/250 ML BAG 13.1 MG IV CONT (06:38)
--- NOTE | 2020-04-28 08:00 | WPDINTPN ---
Progress Note: A&P Assessment and Plan (1) Acute respiratory failure: Qualifiers: Respiratory failure complication: hypoxia Qualified Code(s): J96.01 - Acute respiratory failure with hypoxia Code(s): J96.00 - Acute respiratory failure, unspecified whether with hypoxia or hypercapnia Status: Acute Assessment and Plan: Acute Respiratory failure secondary to pneumonia, encephalopathy, baseline COPD Continue full mechanical ventilation support to prevent hypoxemia/hypercarbia and end organ damage. ABG and PCXR reviewed and will repeat in am. Low tidal volume ventilation strategy to prevent volutrauma Bronchodilators Chest CT IMPRESSION: 1. Bilateral lower lobe and right middle lobe airspace disease, atelectasis versus pneumonia. 2: Bilateral pleural effusions. 3: Cardiomegaly with atherosclerosis. 4: Right paratracheal lymphadenopathy, likely reactive. 5: 3 mm left apical nodule, likely benign. Consider follow-up CT chest in 12 months. (2) Suspected COVID-19 virus infection: Code(s): Z20.828 - Contact with and (suspected) exposure to other viral communicable diseases Status: Acute Assessment and Plan: COVID-19 suspected. SARS-CoV-2 PCR sent and results pending Patient is in Airborne, Droplet and Contact Isolation (3) Sepsis: Code(s): A41.9 - Sepsis, unspecified organism Status: Acute Assessment and Plan: Secondary to pneumonia and UTI blood sputum sent and pending Urine culture is growing E coli which is sensitive to Rocephin Empiric antibiotics Rocephin Azithromycin was switched to doxycycline as patient was placed on amiodarone Pending urine Legionella and pneumococcal antigen Lactic acid has normalized Patient is on Levophed and vasopressin now. Continue titration to maintain map Discontinued IV fluids as patient is now overall volume overloaded (4) Pneumonia: Code(s): J18.9 - Pneumonia, unspecified organism Status: Acute Assessment and Plan: See above (5) UTI (urinary tract infection): Code(s): N39.0 - Urinary tract infection, site not specified Status: Acute Assessment and Plan: See above Renal ultrasound does not show any abscess or hydronephrosis (6) BARRON (acute kidney injury): Code(s): N17.9 - Acute kidney failure, unspecified Status: Acute Assessment and Plan: Patient has CKD 5 and was awaiting initiation of dialysis. She has AV graft in her right arm. Patient seen by nephrology Renal ultrasound was unremarkable Patient has been started on hemodialysis and tolerated her 1st session yesterday. I expect at repeat session today will discuss with nephrology [place] catheter for accurate I&Os Monitor electrolytes. Will give a dose of Kayexalate (7) CKD (chronic kidney disease), stage V: Code(s): N18.5 - Chronic kidney disease, stage 5 Status: Acute Assessment and Plan: Patient started on PhosLo for elevated phosphate level (8) Metabolic acidosis: Code(s): E87.2 - Acidosis Status: Acute Assessment and Plan: IV bicarb was given in the ED and then patient was started on IV fluids with bicarb Patient received another push of IV bicarb in ICU due to shock acidosis Acidosis is improved hence bicarb has been discontinued Patient was dialyzed yesterday and expect another session today Repeat ABG reviewed (9) Elevated troponin: Code(s): R79.89 - Other specified abnormal findings of blood chemistry Status: Acute Assessment and Plan: No history of chest pain prior to this incident. Elevation likely secondary to septic shock, BARRON and chronic kidney disease. EKG shows old left bundle-branch block Continue aspirin and statin this time Recent echo reviewed. Will repeat Cardiology consulted (10) Ischemic cardiomyopathy: Code(s): I25.5 - Ischemic cardiomyopathy Status: Acute Assessment and Plan: AVB -II, LBBB
[2020-04-28] MEDS: CALCIUM ACETATE 667 MG TABLET FEED TUBE ×3 (08:44→17:56)
[2020-04-28] MEDS: ATORVASTATIN 20 MG TABLET PO (08:44)
[2020-04-28] MEDS: SODIUM BICARBONATE TAB 650 MG TABLET 1300 MG FEED TUBE ×3 (08:44→17:56)
[2020-04-28] MEDS: ASPIRIN 325 MG TABLET PO (08:44)
[2020-04-28] MEDS: HEPARIN SODIUM 5,000 UNITS/ML VIAL 5000 UNITS SUB-Q ×2 (08:44→20:07)
[2020-04-28] MEDS: MIDODRINE HCL 2.5 MG TABLET 5 MG PO ×3 (08:45→17:57)
[2020-04-28] MEDS: PANTOPRAZOLE SODIUM IV 40 MG VIAL IV PUSH (08:45)
[2020-04-28] MEDS: INSULIN ASPART (*BKC) 100 UNITS/ML SUB-Q ×4 (08:46→23:47)
[2020-04-28] MEDS: TOLNAFTATE 1% POWDER 45 GM BTL 1 APPLIC TOPICAL ×2 (08:46→20:08)
[2020-04-28] MEDS: SODIUM POLYSTYRENE SULFONONATE 15 GM/60 ML BTL 30 GM FEED TUBE (10:29)
--- NOTE | 2020-04-28 10:58 | PM.PNCARD ---
Progress Note: A&P Assessment and Plan (1) Elevated troponin: Code(s): R79.89 - Other specified abnormal findings of blood chemistry Status: Acute Assessment and Plan: Multifactorial etiology, less likely acute coronary syndrome and/or plaque rupture as primary explanation. Most likely demand ischemia with known underlying CAD, acute on chronic renal failure, hypotension/septic shock on pressor support. COVID-19 pending. Conservative therapy at this time. hold off on systemic anticoagulation at this time. -recheck troponin this a.m.. If further significant increase systemic anticoagulation beneficial. -2D echo in a.m. -chest x-ray worse concerning for development of CHF. Caution volume status, hemodialysis today uncertain as to patient's ability to tolerate ultrafiltrate removal. (2) Coronary artery disease involving inaja coronary artery of inaja heart: Qualifiers: Associated angina: without angina Qualified Code(s): I25.10 - Atherosclerotic heart disease of inaja coronary artery without angina pectoris Code(s): I25.10 - Atherosclerotic heart disease of inaja coronary artery without angina pectoris Status: Acute Assessment and Plan: As above, continue medical therapy aspirin, statin. Did not tolerate beta-mamie therapy yesterday. . Continue aspirin, statin (3) Acute respiratory failure: Qualifiers: Respiratory failure complication: hypoxia Qualified Code(s): J96.01 - Acute respiratory failure with hypoxia Code(s): J96.00 - Acute respiratory failure, unspecified whether with hypoxia or hypercapnia Status: Acute Assessment and Plan: Management per Critical Care Service. She is being treated for pneumonia. Wean ventilatory support as able. COVID-19 pending. She remains on isolation in this regard. (4) Septic shock: Code(s): A41.9 - Sepsis, unspecified organism; R65.21 - Severe sepsis with septic shock Status: Acute Assessment and Plan: Remains on Levophed. Continue antibiotics and supportive care. Stress dose steroids initiated per Critical Care. (5) Acute kidney injury superimposed on chronic kidney disease: Code(s): N17.9 - Acute kidney failure, unspecified; N18.9 - Chronic kidney disease, unspecified Status: Acute Assessment and Plan: Hemodialysis initiated. Appreciate Nephrology involvement. (6) History of aortic valve replacement with bioprosthetic valve: Code(s): Z95.3 - Presence of xenogenic heart valve Status: Acute Assessment and Plan: stable, echocardiogram recently intact function possible mild prosthetic stenosis. Do not suspect complicating hemodynamic status presently. (7) Suspected COVID-19 virus infection: Code(s): Z20.828 - Contact with and (suspected) exposure to other viral communicable diseases Status: Acute Assessment and Plan: Pending. Remains on isolation. (8) Pneumonia: Code(s): J18.9 - Pneumonia, unspecified organism Status: Acute Assessment and Plan: As above. Per Critical Care Service. (9) Acute on chronic anemia: Code(s): D64.9 - Anemia, unspecified Status: Acute Assessment and Plan: Monitor H&H, stable but slight downward trend. No signs of bleeding. Secondary to chronic kidney disease. (10) LBBB (left bundle branch block): Code(s): I44.7 - Left bundle-branch block, unspecified Status: Acute Assessment and Plan: Chronic. Subjective Date/time seen: Date of service: 04/28/20 10:58 Follow-up for CHF, respiratory failure, elevated troponin Patient remains intubated/sedated on Levophed. IV beta-mamie administered due to persistent tachycardia worsening hypotension and concern for development of atrial fibrillation prompting initiation of amiodarone drip. Heart rate improved, telemetry appears consistent with sinus tachycardia with PACs. COVID-19
--- NOTE | 2020-04-28 11:35 | PM.PNNEP ---
Progress Note: A&P Assessment and Plan (1) CKD (chronic kidney disease), stage V: Code(s): N18.5 - Chronic kidney disease, stage 5 Status: Acute Assessment and Plan: The patient has chronic kidney disease. Her baseline GFR is now only 13. This is due to diabetes, hypertension, and vascular disease. (2) BARRON (acute kidney injury): Code(s): N17.9 - Acute kidney failure, unspecified Status: Acute Assessment and Plan: The patient has acute kidney injury. This is on top of severe chronic kidney disease. She had dialysis yesterday. She did pretty well with this. She still has excess fluid. Her potassium is a little high. We will do another treatment today and also do ultrafiltration. Will use albumin for low blood pressure and adjust Levophed if needed. Discussed at length with Dr. Mcguire (3) Suspected COVID-19 virus infection: Code(s): Z20.828 - Contact with and (suspected) exposure to other viral communicable diseases Status: Acute Assessment and Plan: Because of the pneumonia and severity of her illness she is getting a COVID-19 test. This is still pending. She is on isolation. (4) Encephalopathy: Code(s): G93.40 - Encephalopathy, unspecified Status: Acute Assessment and Plan: She seemed to do be doing better yesterday with the sedation holiday. (5) Sepsis: Code(s): A41.9 - Sepsis, unspecified organism Status: Acute Assessment and Plan: The patient seems to have septic syndrome. Urine culture is positive. (6) Metabolic acidosis: Code(s): E87.2 - Acidosis Status: Acute Assessment and Plan: Bicarbonate level is improved with the bicarb drip. Anion gap is around 20. Most likely due to the uremic toxins. Her baseline is 16. (7) Pneumonia: Code(s): J18.9 - Pneumonia, unspecified organism Status: Acute Assessment and Plan: The patient has evidence on chest x-ray. She is getting antibiotics. (8) Anemia: Code(s): D64.9 - Anemia, unspecified Status: Acute Assessment and Plan: She is anemic at baseline. Lower hemoglobin is up and down. Transfuse as needed (9) Diabetes: Code(s): E11.9 - Type 2 diabetes mellitus without complications Status: Acute Assessment and Plan: She is currently on an insulin drip. Subjective Date/time seen: 04/28/20 11:35 Interval history: Patient is sedated. On Vent. on pressors. Review of Systems Review of Systems: ROS unobtainable: Yes unobtainable due to endotracheal tube Exam Narrative: Exam Narrative: WDWN in NAD skin no rash or subcu nodules head ncat lungs mildly coarse at the bases cor reg no rub or gallop abd BS+ no tenderness ext 1+ edema. Objective Data Vital Signs Vital Signs: Vital Signs - 24 hr 04/27/20 12:00 04/27/20 12:04 04/27/20 14:00 Temperature 36.6 C Pulse Rate 136 H 136 H 134 H Pulse Rate [Radial] Respiratory Rate 16 16 Blood Pressure 110/67 85/65 L Blood Pressure [Orthostatic Lying] Pulse Oximetry 100 100 100 04/27/20 14:09 04/27/20 14:25 04/27/20 16:00 Temperature 37.2 C Pulse Rate 137 H 130 H 127 H Pulse Rate [Radial] 131 H Respiratory Rate 24 H Blood Pressure 111/78 Blood Pressure [Orthostatic Lying] 110/68 Pulse Oximetry 100 97 04/27/20 16:21 04/27/20 16:30 04/27/20 16:45 Temperature Pulse Rate 126 H 129 H 131 H Pulse Rate [Radial] Respiratory Rate Blood Pressure 111/78 110/78 122/82 Blood Pressure [Orthostatic Lying] Pulse Oximetry 04/27/20 17:00 04/27/20 17:15 04/27/20 17:26 Temperature Pulse Rate 132 H 132 H 131 H Pulse Rate [Radial] Respiratory Rate Blood Pressure 124/76 122/75 Blood Pressure [Orthostatic Lying] Pulse Oximetry 100 04/27/20 17:30 04/27/20 17:45 04/27/20 18:00 Temperature Pulse Rate 132 H 131 H 132 H Pulse Rate [Radial] Respiratory
[2020-04-28 13:24] LABS: Troponin I 0.676 ng/mL (0.000-0.034)
[2020-04-28 14:41] LABS: Glucose Point of Care 283 (65-105)
[2020-04-28 14:41] LABS: Glucose Point of Care 227 (65-105)
[2020-04-28 16:20] LABS: Glucose Point of Care 187 (65-105)
--- NOTE | 2020-04-28 18:05 | P.PNIM_ITS ---
Progress Note: A&P Assessment and Plan (1) Acute respiratory failure: Qualifiers: Respiratory failure complication: hypoxia Qualified Code(s): J96.01 - Acute respiratory failure with hypoxia Code(s): J96.00 - Acute respiratory failure, unspecified whether with hypoxia or hypercapnia Status: Acute Assessment and Plan: * Precipitating etiology is not entirely clear, as patient's reports that she has been in her usual state of health. * Chest x-ray does show findings concerning for pneumonia and she will be empirically treated for such. * Reportedly she has underlying COPD however this is poorly documented and she is a lifelong nonsmoker. * Pulmonary embolism is also a consideration. Chest CT was unable to be done with contrast given her chronic kidney disease. Instead, we will perform lower extremity venous Doppler ultrasounds and consider V/Q scan thereafter. No empiric anticoagulation given profound anemia (hemoglobin 6.0, pending confirmation). * Continue mechanical ventilation per [employer] worker. ___04/28/20 18:05 patient is 69-year-old female with history of coronary artery disease and chronic kidney disease stage 5 due to diabetes and hypertension, patient was found unresponsive at home EMS was called patient was and respiratory distress and attempt to intubation was unsuccessful patient was brought to emergency department on BiPAP still struggling patient was intubated and currently on vent. Concerned patient may be positive for COVID-19 under isolation and droplet precaution in ICU, patient is seen by Dr. Zarate recommending patient will need emergent dialysis, her BP is very low, will not remove any fluid, today patient is having dialysis on ventilator COVID test is still pending patient is clinically stable (2) Sepsis: Code(s): A41.9 - Sepsis, unspecified organism Status: Acute Assessment and Plan: * On admission and supported by tachycardia, tachypnea, relative hypotension, and lactic acidosis. * Lactic acid level will be trended and blood cultures have been obtained and are pending. * At this juncture her blood pressures are stable, but will monitor closely in case she needs vasopressors. (3) Pneumonia: Code(s): J18.9 - Pneumonia, unspecified organism Status: Acute Assessment and Plan: * Atelectasis versus pneumonia noted on chest CT. * Will empirically treat with azithromycin and ceftriaxone. * Sputum to be attempted for culture. * Specimen sent for urinary antigens. * SARS-CoV-2 swab pending, thus will initiate contact, droplet, and airborne isolation. (4) Urinary tract infection: Code(s): N39.0 - Urinary tract infection, site not specified Status: Acute Assessment and Plan: * Empiric ceftriaxone, pending urine culture. (5) Metabolic acidosis: Code(s): E87.2 - Acidosis Status: Acute Assessment and Plan: * ABG consistent with mixed respiratory and metabolic acidosis. * Vent management is per the [employer] worker. * She is currently on a bicarbonate drip as well. * No ketones in urine thus DKA not likely. (6) Acute kidney injury superimposed on chronic kidney disease: Code(s): N17.9 - Acute kidney failure, unspecified; N18.9 - Chronic kidney disease, unspecified Status: Acute
--- NOTE | 2020-04-28 18:05 | PM.IMPN ---
Progress Note: A&P Assessment and Plan (1) Acute respiratory failure: Qualifiers: Respiratory failure complication: hypoxia Qualified Code(s): J96.01 - Acute respiratory failure with hypoxia Code(s): J96.00 - Acute respiratory failure, unspecified whether with hypoxia or hypercapnia Status: Acute Assessment and Plan: Precipitating etiology is not entirely clear, as patient's reports that she has been in her usual state of health. Chest x-ray does show findings concerning for pneumonia and she will be empirically treated for such. Reportedly she has underlying COPD however this is poorly documented and she is a lifelong nonsmoker. Pulmonary embolism is also a consideration. Chest CT was unable to be done with contrast given her chronic kidney disease. Instead, we will perform lower extremity venous Doppler ultrasounds and consider V/Q scan thereafter. No empiric anticoagulation given profound anemia (hemoglobin 6.0, pending confirmation). Continue mechanical ventilation per water vessel captain. ___04/28/20 18:05 patient is 69-year-old female with history of coronary artery disease and chronic kidney disease stage 5 due to diabetes and hypertension, patient was found unresponsive at home EMS was called patient was and respiratory distress and attempt to intubation was unsuccessful patient was brought to emergency department on BiPAP still struggling patient was intubated and currently on vent. Concerned patient may be positive for COVID-19 under isolation and droplet precaution in ICU, patient is seen by Dr. Zarate recommending patient will need emergent dialysis, her BP is very low, will not remove any fluid, today patient is having dialysis on ventilator COVID test is still pending patient is clinically stable (2) Sepsis: Code(s): A41.9 - Sepsis, unspecified organism Status: Acute Assessment and Plan: On admission and supported by tachycardia, tachypnea, relative hypotension, and lactic acidosis. Lactic acid level will be trended and blood cultures have been obtained and are pending. At this juncture her blood pressures are stable, but will monitor closely in case she needs vasopressors. (3) Pneumonia: Code(s): J18.9 - Pneumonia, unspecified organism Status: Acute Assessment and Plan: Atelectasis versus pneumonia noted on chest CT. Will empirically treat with azithromycin and ceftriaxone. Sputum to be attempted for culture. Specimen sent for urinary antigens. SARS-CoV-2 swab pending, thus will initiate contact, droplet, and airborne isolation. (4) Urinary tract infection: Code(s): N39.0 - Urinary tract infection, site not specified Status: Acute Assessment and Plan: Empiric ceftriaxone, pending urine culture. (5) Metabolic acidosis: Code(s): E87.2 - Acidosis Status: Acute Assessment and Plan: ABG consistent with mixed respiratory and metabolic acidosis. Vent management is per the water vessel captain. She is currently on a bicarbonate drip as well. No ketones in urine thus DKA not likely. (6) Acute kidney injury superimposed on chronic kidney disease: Code(s): N17.9 - Acute kidney failure, unspecified; N18.9 - Chronic kidney disease, unspecified Status: Acute Assessment and Plan: Likely multifactorial in etiology to include to include possible ATN from sepsis, hypovolemia due to anemia +/- 3rd spacing. May need initiation of dialysis, and thus will consult Nephrology. Continue cautious IV fluid rehydration. Avoid nephrotoxic agents. Monitor strict I/O. (7) Type 2 diabetes mellitus:
[2020-04-28 20:44] LABS: Immunochemical Fecal Occult Bl Positive (N)
[2020-04-28 20:45] LABS: IFOB Positive Control Positive
[2020-04-28 21:02] LABS: Glucose Point of Care 245 (65-105)
[2020-04-29] VITALS (38 sets, daily range): BP systolic 79–134; BP diastolic 42–75; PULSE 59–102; RESP 16–18; TEMP 35.1–37; O2SAT 94–100; BMI 33.7
[2020-04-29 00:04] LABS: Glucose Point of Care 282 (65-105)
[2020-04-29] MEDS: AMIODARONE 360 MG/D5W 200 ML 360 MG/200 ML BAG 16.7 MG IV CONT ×2 (02:57→14:23)
[2020-04-29 04:08] LABS: Alveolar/Arterial O2 Gradient 91.5 mmHg; Base Excess ABG -1.4 mEq/l (+/-2.0); Carboxyhemoglobin 0.3 % THb (0-2.0); Fractional Inspired Oxygen 30 %; HCO3 ABG 21.6 mEq/l (22.0-26.0); Methemoglobin ABG 0.3 %THb (0-1.5); Oxygen Content ABG 10.6 %vol (16.0-22.0); Oxygen Saturation ABG 97.4 % (95.0-100.0); PCO2 ABG 29.3 mmHg (35.0-45.0); PO2 FiO2 Ratio Arterial Blood 2.93 %; Reduced Hemoglobin 5.4 %THb (0-5.0); pH ABG 7.485 (7.350-7.450)
[2020-04-29 04:10] LABS: Device VENTILATOR; Modified Allen's Test Pass; Site Drawn LEFT RADIAL; Total Hemoglobin 7.9 g/dL (12.0-18.0)
[2020-04-29 04:11] LABS: Arterial Blood Gas PEEP 5 cmH2O; Arterial Blood Gas Tidal Volume 420 ml; Arterial Blood Gas Vent Mode CMV; Arterial Blood Gas Ventilator rate 16 /MIN
[2020-04-29] MEDS: VASOPRESSIN INJ 100 UNITS in DEXTROSE 5% 95 ML IV CONT (04:34)
[2020-04-29 04:45] LABS: Glucose Point of Care 312 (65-105)
[2020-04-29 04:55] LABS: Basophils Percent Auto 0.1 % (0.2-1.2); Hematocrit 23.2 % (37.0-47.0); Hemoglobin 7.5 g/dL (12.0-15.0); Immature Granulocyte Absolute 0.24 K/mm3 (0.00-0.031); Lymphocytes Percent Auto 2.6 % (18.3-44.2); Mean Corpuscular HGB Conc 32.3 g/dl (32-36); Mean Corpuscular Hemoglobin 29.4 pg (26-34); Monocytes Absolute Auto 0.8 K/mm3 (0.1-0.6); Monocytes Percent Auto 3.4 % (2.6-8.5); Neutrophils Absolute Auto 21.8 K/mm3 (1.3-6.7); Neutrophils Percent Auto 92.9 % (45.5-73.1); Nucleated Red Blood Cells Absolute Auto 0.6 K/mm3 (0.0-0.012); Nucleated Red Blood Cells Perc 2.4 % (0.0-0.2); Platelet Count Result 257 k/mm3 (150-375); Red Blood Count 2.55 M/mm3 (4.2-5.4); Red Cell Distribution Width 17.2 % (11.5-14.5); White Blood Count 23.5 K/mm3 (4.5-10.0)
[2020-04-29 05:20] LABS: Hypochromasia 1+ (NORMAL); Platelet Estimate Adequate (Adequate)
[2020-04-29 05:22] LABS: Macrocytosis 1+ (NORMAL)
[2020-04-29 05:33] LABS: Alanine Aminotransferase 108 U/L (4-35); Albumin Level 2.7 g/dL (3.5-5.1); Alkaline Phosphatase 302 U/L (38-126); Aspartate Amino Transferase 83 U/L (14-36); Bilirubin,Total 0.4 mg/dL (0.2-1.3); Blood Urea Nitrogen 72 mg/dL (7-17); Calcium 6.3 mg/dL (8.4-10.2); Carbon Dioxide 20 mmol/L (22-30); Chloride 94 mmol/L (98-107); Estimated CRCL calculation 11 ml/min; Estimated Glomerular Filt Rate 9; Glucose 311 mg/dL (65-105); Magnesium 1.8 mg/dL (1.6-2.3); Phosphorus 7.9 mg/dL (2.5-4.5); Potassium 4.1 mmol/L (3.4-5.0); Sodium 131 mmol/L (137-145)
[2020-04-29] MEDS: HYDROCORTISONE SODIUM SUCCINATE 100 MG/2 ML VIAL 50 MG IV PUSH ×3 (06:04→17:29)
[2020-04-29] MEDS: INSULIN ASPART (*BKC) 100 UNITS/ML SUB-Q ×4 (06:05→17:10)
[2020-04-29] MEDS: TOLNAFTATE 1% POWDER 45 GM BTL 1 APPLIC TOPICAL ×2 (08:13→20:05)
[2020-04-29] MEDS: CALCIUM ACETATE 667 MG TABLET FEED TUBE ×3 (08:14→17:29)
[2020-04-29] MEDS: PANTOPRAZOLE SODIUM IV 40 MG VIAL IV PUSH ×2 (08:14→20:05)
[2020-04-29] MEDS: SODIUM BICARBONATE TAB 650 MG TABLET 1300 MG FEED TUBE ×3 (08:14→17:29)
[2020-04-29] MEDS: ATORVASTATIN 20 MG TABLET PO (08:14)
[2020-04-29] MEDS: HEPARIN SODIUM 5,000 UNITS/ML VIAL 5000 UNITS SUB-Q ×2 (08:15→20:05)
[2020-04-29] MEDS: ASPIRIN 325 MG TABLET PO (08:15)
[2020-04-29] MEDS: MIDODRINE HCL 2.5 MG TABLET 5 MG PO ×3 (08:15→17:29)
[2020-04-29 08:27] LABS: Pneumococcal Antigen Urine Not Detected (Not Detected)
[2020-04-29 08:53] LABS: Glucose Point of Care 319 (65-105)
[2020-04-29] MEDS: INSULIN GLARGINE (*BKC) 100 UNITS/ML 10 UNITS SUB-Q (08:55)
--- NOTE | 2020-04-29 09:13 | WPDINTPN ---
Progress Note: A&P Assessment and Plan (1) Acute respiratory failure: Qualifiers: Respiratory failure complication: hypoxia Qualified Code(s): J96.01 - Acute respiratory failure with hypoxia Code(s): J96.00 - Acute respiratory failure, unspecified whether with hypoxia or hypercapnia Status: Acute Assessment and Plan: Acute Respiratory failure secondary to pneumonia, encephalopathy, baseline COPD Continue full mechanical ventilation support to prevent hypoxemia/hypercarbia and end organ damage. ABG and PCXR reviewed. FiO2 of 30% and peep of 5 Low tidal volume ventilation strategy to prevent volutrauma Bronchodilators Chest CT IMPRESSION: 1. Bilateral lower lobe and right middle lobe airspace disease, atelectasis versus pneumonia. 2: Bilateral pleural effusions. 3: Cardiomegaly with atherosclerosis. 4: Right paratracheal lymphadenopathy, likely reactive. 5: 3 mm left apical nodule, likely benign. Consider follow-up CT chest in 12 months. (2) Septic shock: Code(s): A41.9 - Sepsis, unspecified organism; R65.21 - Severe sepsis with septic shock Status: Acute Assessment and Plan: Secondary to pneumonia and UTI blood sputum sent and pending Urine culture is growing E coli which is sensitive to Rocephin Empiric antibiotics Rocephin Azithromycin was switched to doxycycline as patient was placed on amiodarone Pending urine Legionella. Pneumococcal antigen not detected Lactic acid has normalized Patient is on Levophed and vasopressin now. Continue titration to maintain map of > 65 mmHg Patient is off IV fluids (3) Suspected COVID-19 virus infection: Code(s): Z20.828 - Contact with and (suspected) exposure to other viral communicable diseases Status: Acute Assessment and Plan: COVID-19 suspected. SARS-CoV-2 PCR sent and results pending Patient is in Airborne, Droplet and Contact Isolation (4) Pneumonia: Code(s): J18.9 - Pneumonia, unspecified organism Status: Acute Assessment and Plan: See above (5) UTI (urinary tract infection): Code(s): N39.0 - Urinary tract infection, site not specified Status: Acute Assessment and Plan: See above Renal ultrasound does not show any abscess or hydronephrosis (6) BARRON (acute kidney injury): Code(s): N17.9 - Acute kidney failure, unspecified Status: Acute Assessment and Plan: Patient has CKD 5 and was awaiting initiation of dialysis. She has AV graft in her right arm. Appreciate Nephrology following the patient Renal ultrasound was unremarkable Patient has been started on dialysis on 04/27/2020, received dialysis on 04/28/2020 Will request nephrology to dialyze again today [place] catheter with minimal urine output, in for accurate I&Os Monitor electrolytes. (7) CKD (chronic kidney disease), stage V: Code(s): N18.5 - Chronic kidney disease, stage 5 Status: Acute Assessment and Plan: Patient started on PhosLo for elevated phosphate level (8) Metabolic acidosis: Code(s): E87.2 - Acidosis Status: Acute Assessment and Plan: RESOLVED: Likely related to acute on chronic renal insufficiency patient initially was on bicarb infusion was has been discontinued Patient was dialyzed on 04/28 and expect another session today Repeat ABG reviewed (9) Elevated troponin: Code(s): R79.89 - Other specified abnormal findings of blood chemistry Status: Acute Assessment and Plan: No history of chest pain prior to this incident. Elevation likely secondary to septic shock, BARRON and chronic kidney disease. EKG shows old left bundle-branch block Continue aspirin and statin this time Recent echo reviewed. Will repeat Cardiology consulted (10) Ischemic cardiomyopathy: Code(s): I25.5 - Ischemic cardiomyopathy Status: Acute Assessment and Plan: AVB -II, LBBB, CHF and ischemic cardiomyopathy, S/P biopro
[2020-04-29] MEDS: INSULIN GLARGINE (*BKC) 100 UNITS/ML 8 UNITS SUB-Q (12:15)
[2020-04-29 12:42] LABS: Procalcitonin 0.67 ng/mL (<0.10)
[2020-04-29 14:31] LABS: Glucose Point of Care 346 (65-105)
--- NOTE | 2020-04-29 15:57 | PM.PNNEP ---
Progress Note: A&P Assessment and Plan (1) CKD (chronic kidney disease), stage V: Code(s): N18.5 - Chronic kidney disease, stage 5 Status: Acute Assessment and Plan: The patient has chronic kidney disease. This is due to diabetes, hypertension, and vascular disease. (2) BARRON (acute kidney injury): Code(s): N17.9 - Acute kidney failure, unspecified Status: Acute Assessment and Plan: The patient has acute kidney injury. This is on top of severe chronic kidney disease. Her kidney function may not come back. Getting dialysis to try to remove fluid so she can get off the ventilator. (3) Suspected COVID-19 virus infection: Code(s): Z20.828 - Contact with and (suspected) exposure to other viral communicable diseases Status: Acute Assessment and Plan: Because of the pneumonia and severity of her illness she is getting a COVID-19 test. This is still pending. She is on isolation. (4) Encephalopathy: Code(s): G93.40 - Encephalopathy, unspecified Status: Acute Assessment and Plan: She seemed to do be doing better yesterday with the sedation holiday. (5) Sepsis: Code(s): A41.9 - Sepsis, unspecified organism Status: Deleted Assessment and Plan: The patient seems to have septic syndrome. Urine culture is positive. (6) Metabolic acidosis: Code(s): E87.2 - Acidosis Status: Acute Assessment and Plan: Bicarbonate level is improved with the bicarb drip. Anion gap is around 20. Most likely due to the uremic toxins. Her baseline is 16. (7) Pneumonia: Code(s): J18.9 - Pneumonia, unspecified organism Status: Acute Assessment and Plan: The patient has evidence on chest x-ray. She is getting antibiotics. (8) Anemia: Code(s): D64.9 - Anemia, unspecified Status: Acute Assessment and Plan: She is anemic at baseline. On EPO 3 times a week. Transfuse as needed (9) Diabetes: Code(s): E11.9 - Type 2 diabetes mellitus without complications Status: Acute Assessment and Plan: She is currently on insulin sliding scale Subjective Date/time seen: 04/29/20 15:57 Interval history: Patient is sedated. On Vent. Still in both Levophed and vasopressin, however the Levophed is almost off. The patient is on hemodialysis and tolerating it well. She was seen at 3:45 p.m. blood pressures okay so far. Going for fluid but we will cut back on ultrafiltration rate if her blood pressure drops much. Review of Systems Review of Systems: ROS unobtainable: Yes unobtainable due to endotracheal tube Exam Narrative: Exam Narrative: WDWN in NAD skin no rash head ncat lungs mildly coarse at the bases cor reg no rub or gallop abd BS+ no tenderness ext 1+ edema. Or cyanosis Objective Data Vital Signs Vital Signs: Vital Signs - 24 hr 04/28/20 16:00 04/28/20 16:15 04/28/20 16:30 Temperature Pulse Rate 127 H 128 H 124 H Pulse Rate [Radial] Respiratory Rate 22 H Blood Pressure 103/63 113/62 132/69 Blood Pressure [Orthostatic Lying] Pulse Oximetry 98 04/28/20 16:45 04/28/20 17:00 04/28/20 17:03 Temperature Pulse Rate 121 H 121 H 107 H Pulse Rate [Radial] Respiratory Rate Blood Pressure 97/64 L 110/59 L Blood Pressure [Orthostatic Lying] Pulse Oximetry 100 04/28/20 17:18 04/28/20 17:31 04/28/20 17:34 Temperature 36.0 C L 36.0 C L Pulse Rate 120 H 119 H Pulse Rate [Radial] 119 H Respiratory Rate 17 17 Blood Pressure 108/60 110/62 Blood Pressure [Orthostatic Lying] 110/62 Pulse Oximetry 99 04/28/20 18:00 04/28/20 20:00 04/28/20 20:09 Temperature 36.0 C L Pulse Rate 118 H 91 104 H Pulse Rate [Radial] Respiratory Rate 16 16 Blood Pressure 90/54 L 96/57 L Blood Pressure [Orthostatic Lying] Pulse Oximetry 99 98 99 04/28/20 22:00 04/28/20 23:37 04/28/20 23:44 Temperature
[2020-04-29 16:41] LABS: SARS-CoV-2 RNA PCR Negative
--- NOTE | 2020-04-29 16:49 | P.PNIM_ITS ---
Progress Note: A&P Assessment and Plan (1) Acute respiratory failure: Qualifiers: Respiratory failure complication: hypoxia Qualified Code(s): J96.01 - Acute respiratory failure with hypoxia Code(s): J96.00 - Acute respiratory failure, unspecified whether with hypoxia or hypercapnia Status: Acute Assessment and Plan: * Precipitating etiology is not entirely clear, as patient's reports that she has been in her usual state of health. * Chest x-ray does show findings concerning for pneumonia and she will be empirically treated for such. * Reportedly she has underlying COPD however this is poorly documented and she is a lifelong nonsmoker. * Pulmonary embolism is also a consideration. Chest CT was unable to be done with contrast given her chronic kidney disease. Instead, we will perform lower extremity venous Doppler ultrasounds and consider V/Q scan thereafter. No empiric anticoagulation given profound anemia (hemoglobin 6.0, pending confirmation). * Continue mechanical ventilation per charter coordinator. ___04/29/20 16:49 patient is 69-year-old female with history of coronary artery disease and chronic kidney disease stage 5 due to diabetes and hypertension, patient was found unresponsive at home EMS was called patient was and respiratory distress and attempt to intubation was unsuccessful patient was brought to emergency department on BiPAP still struggling patient was intubated and currently on vent. Concerned patient may be positive for COVID-19 under isolation and droplet precaution in ICU, patient is seen by Dr. Zarate recommending patient will need emergent dialysis, her BP is very low, will not remove any fluid, on 04/28 patient had dialysis, on ventilator COVID test is still pending patient is clinically stable patient is seen by charter coordinator and appreciate (2) Sepsis: Code(s): A41.9 - Sepsis, unspecified organism Status: Deleted Assessment and Plan: * On admission and supported by tachycardia, tachypnea, relative hypotension, and lactic acidosis. * Lactic acid level will be trended and blood cultures have been obtained and are pending. * At this juncture her blood pressures are stable, but will monitor closely in case she needs vasopressors. (3) Pneumonia: Code(s): J18.9 - Pneumonia, unspecified organism Status: Acute Assessment and Plan: * Atelectasis versus pneumonia noted on chest CT. * Will empirically treat with azithromycin and ceftriaxone. * Sputum to be attempted for culture. * Specimen sent for urinary antigens. * SARS-CoV-2 swab pending, thus will initiate contact, droplet, and airborne isolation. (4) Urinary tract infection: Code(s): N39.0 - Urinary tract infection, site not specified Status: Acute Assessment and Plan: * Urine culture is growing E coli pansensitive continue Rocephin (5) Metabolic acidosis: Code(s): E87.2 - Acidosis Status: Acute Assessment and Plan: * ABG consistent with mixed respiratory and metabolic acidosis. * Vent management is per the charter coordinator. * She is currently on a bicarbonate drip as well. * No ketones in urine thus DKA not likely. (6) Acute kidney injury superimposed on chronic kidney disease: Code(s): N17.9 - Acute kidney failure, unspecified; N18.9 - Chronic k
--- NOTE | 2020-04-29 16:49 | PM.IMPN ---
Progress Note: A&P Assessment and Plan (1) Acute respiratory failure: Qualifiers: Respiratory failure complication: hypoxia Qualified Code(s): J96.01 - Acute respiratory failure with hypoxia Code(s): J96.00 - Acute respiratory failure, unspecified whether with hypoxia or hypercapnia Status: Acute Assessment and Plan: Precipitating etiology is not entirely clear, as patient's reports that she has been in her usual state of health. Chest x-ray does show findings concerning for pneumonia and she will be empirically treated for such. Reportedly she has underlying COPD however this is poorly documented and she is a lifelong nonsmoker. Pulmonary embolism is also a consideration. Chest CT was unable to be done with contrast given her chronic kidney disease. Instead, we will perform lower extremity venous Doppler ultrasounds and consider V/Q scan thereafter. No empiric anticoagulation given profound anemia (hemoglobin 6.0, pending confirmation). Continue mechanical ventilation per poultry breeder. ___04/29/20 16:49 patient is 69-year-old female with history of coronary artery disease and chronic kidney disease stage 5 due to diabetes and hypertension, patient was found unresponsive at home EMS was called patient was and respiratory distress and attempt to intubation was unsuccessful patient was brought to emergency department on BiPAP still struggling patient was intubated and currently on vent. Concerned patient may be positive for COVID-19 under isolation and droplet precaution in ICU, patient is seen by Dr. Zarate recommending patient will need emergent dialysis, her BP is very low, will not remove any fluid, on 04/28 patient had dialysis, on ventilator COVID test is still pending patient is clinically stable patient is seen by poultry breeder and appreciate (2) Sepsis: Code(s): A41.9 - Sepsis, unspecified organism Status: Deleted Assessment and Plan: On admission and supported by tachycardia, tachypnea, relative hypotension, and lactic acidosis. Lactic acid level will be trended and blood cultures have been obtained and are pending. At this juncture her blood pressures are stable, but will monitor closely in case she needs vasopressors. (3) Pneumonia: Code(s): J18.9 - Pneumonia, unspecified organism Status: Acute Assessment and Plan: Atelectasis versus pneumonia noted on chest CT. Will empirically treat with azithromycin and ceftriaxone. Sputum to be attempted for culture. Specimen sent for urinary antigens. SARS-CoV-2 swab pending, thus will initiate contact, droplet, and airborne isolation. (4) Urinary tract infection: Code(s): N39.0 - Urinary tract infection, site not specified Status: Acute Assessment and Plan: Urine culture is growing E coli pansensitive continue Rocephin (5) Metabolic acidosis: Code(s): E87.2 - Acidosis Status: Acute Assessment and Plan: ABG consistent with mixed respiratory and metabolic acidosis. Vent management is per the poultry breeder. She is currently on a bicarbonate drip as well. No ketones in urine thus DKA not likely. (6) Acute kidney injury superimposed on chronic kidney disease: Code(s): N17.9 - Acute kidney failure, unspecified; N18.9 - Chronic kidney disease, unspecified Status: Acute Assessment and Plan: Likely multifactorial in etiology to include to include possible ATN from sepsis, hypovolemia due to anemia +/- 3rd spacing. May need initiation of dialysis, and thus will consult Nephrology. Continue cautious IV fluid rehydration. Avoid nephrotoxic agents. Monitor strict I/O.
[2020-04-29 17:02] LABS: Glucose Point of Care 217 (65-105)
[2020-04-29 20:20] LABS: Glucose Point of Care 198 (65-105)
[2020-04-30] VITALS (51 sets, daily range): BP systolic 87–126; BP diastolic 43–64; PULSE 63–101; RESP 14–20; TEMP 36.4–37; O2SAT 95–100
--- NOTE | 2020-04-30 | ECHO_ITS ---
Patient Info Name: aMrtha Reid Age: 69 years : 1950 Gender: Female Ht: 65 in Wt: 198 lbs BSA: 2.06 m2 HR: 79 bpm BP: 91 / 43 mmHg Heart Rhythm: Left Bundle Branch Block Technical Quality: Good Exam Date: 04/30/2020 9:59 AM Exam Location: [facility] Patient Status: Inpatient Admit Date: 04/26/2020 Staff Ordering Physician: Gregg Mcguire MD Route Supervisor: Andrey Cabrera RDCS Attending Provider: Ananda Stanlye MD Exam Type: CA echo doppler color flow Study Info Indications I21.4 - Non-ST elevation (NSTEMI) myocardial infarction Complete two-dimensional, color flow and Doppler transthoracic echocardiogram is performed. Strain analysis performed. History/Risk Factors NSTEMI; CHF, CAD s/p 3vCABG '14, CKD5, COPD, BioAVR, ICM, DM2, acute respiratory failure. Summary 1. Mild LV enlargement, severe LVH, severe LV systolic dysfunction, ejection fraction 25-30%; abnormal diastolic function. Abnormal G LS manager imaging at-5.6. Mild RV enlargement. Systolic and diastolic ventricular septal flattening consistent with elevated RV pressure and volume. Mild left atrial enlargement. Dense mitral annular calcification, moderate mitral regurgitation. Aortic valve is not well visualized, moderate aortic stenosis, v max 2.8 m/sec, peak gradient 32, mean gradient 16 mmHg, DVI 0.39, JUAN M 1 cm2. Moderate to severe tricuspid regurgitation, moderate pulmonary hypertension, RVSP 53 mmHg. Left Ventricle Left ventricular chamber dimension is mildly enlarged. Left ventricular systolic function is severely reduced, estimated at 25-30%. There is severely increased left ventricular wall thickness. Left ventricular septal wall motion is normal. The left ventricular diastolic function is abnormal. Right Ventricle Right ventricular chamber dimension is mildly enlarged. Right ventricular systolic function is normal. Left Atria Left atrial chamber dimension is mildly enlarged. Right Atria Right atrial chamber dimension is normal. Aortic Valve The aortic valve is not well visualized. There is no aortic valve sclerosis. There is no aortic valve stenosis. There is no aortic valve regurgitation. Pulmonic Valve There is mild pulmonic regurgitation. Mitral Valve The mitral valve has normal leaflets. There is moderate mitral valve regurgitation. The mitral valve annulus is severely calcified. Tricuspid Valve The tricuspid valve leaflets are normal. There is no significant tricuspid valve stenosis. There is moderate to severe tricuspid valve regurgitation. Moderate pulmonary hypertension, estimated pulmonary arterial systolic pressure is 53 mmHg. Pericardium/Pleural The pericardium appears normal. There is no pericardial effusion. Aorta The aortic root size at the sinus of Valsalva is normal. The prox ascending aorta size is normal. Left Ventricular Outflow Tract Name Value Normal LVOT 2D LVOT Diameter 1.8 cm LVOT Doppler LVOT Peak Gradient 5 mmHg LVOT Mean Gradient 3 mmHg LVOT VTI 22 cm LVOT VTI/AV VT
[2020-04-30 00:12] LABS: Glucose Point of Care 286 (65-105)
[2020-04-30] MEDS: INSULIN ASPART (*BKC) 100 UNITS/ML SUB-Q ×6 (00:12→22:10)
[2020-04-30] MEDS: HYDROCORTISONE SODIUM SUCCINATE 100 MG/2 ML VIAL 50 MG IV PUSH ×4 (00:12→17:17)
[2020-04-30] MEDS: AMIODARONE 360 MG/D5W 200 ML 360 MG/200 ML BAG 16.7 MG IV CONT (02:13)
[2020-04-30 04:08] LABS: Alveolar/Arterial O2 Gradient 94.3 mmHg; Base Excess ABG 3.4 mEq/l (+/-2.0); Carboxyhemoglobin 0.3 % THb (0-2.0); Fractional Inspired Oxygen 30 %; HCO3 ABG 25.6 mEq/l (22.0-26.0); Methemoglobin ABG 0.3 %THb (0-1.5); Oxygen Content ABG 10.4 %vol (16.0-22.0); Oxygen Saturation ABG 97.6 % (95.0-100.0); Oxyhemoglobin 94.3 % THb (90.0-100.0); PCO2 ABG 29.2 mmHg (35.0-45.0); PO2 ABG 85.3 mmHg (80.0-100.0); PO2 FiO2 Ratio Arterial Blood 2.84 %; Reduced Hemoglobin 5.1 %THb (0-5.0)
[2020-04-30 04:12] LABS: Device VENTILATOR; Modified Allen's Test Unable to perform; Site Drawn LEFT RADIAL; Total Hemoglobin 7.7 g/dL (12.0-18.0); pH ABG 7.561 (7.350-7.450)
[2020-04-30 04:13] LABS: Arterial Blood Gas PEEP 5 cmH2O; Arterial Blood Gas Tidal Volume 420 ml; Arterial Blood Gas Vent Mode CMV; Arterial Blood Gas Ventilator rate 16 /MIN
[2020-04-30 05:02] LABS: Glucose Point of Care 291 (65-105)
[2020-04-30 05:04] LABS: Basophils Percent Auto 0.1 % (0.2-1.2); Hematocrit 21.6 % (37.0-47.0); Hemoglobin 7.1 g/dL (12.0-15.0); Immature Granulocyte Absolute 0.21 K/mm3 (0.00-0.031); Immature Granulocyte Percent A 0.9 % (0-0.5); Lymphocytes Absolute Auto 0.49 K/mm3 (0.9-3.2); Lymphocytes Percent Auto 2.1 % (18.3-44.2); Mean Corpuscular HGB Conc 32.9 g/dl (32-36); Mean Corpuscular Hemoglobin 29.7 pg (26-34); Mean Corpuscular Volume 90.4 fl (80-100); Mean Platelet Volume 11.4 fl (7.4-10.4); Monocytes Absolute Auto 0.9 K/mm3 (0.1-0.6); Monocytes Percent Auto 3.9 % (2.6-8.5); Neutrophils Absolute Auto 21.7 K/mm3 (1.3-6.7); Nucleated Red Blood Cells Absolute Auto 0.8 K/mm3 (0.0-0.012); Nucleated Red Blood Cells Perc 3.4 % (0.0-0.2); Platelet Count Result 233 k/mm3 (150-375); Red Blood Count 2.39 M/mm3 (4.2-5.4); Red Cell Distribution Width 16.8 % (11.5-14.5); White Blood Count 23.3 K/mm3 (4.5-10.0)
[2020-04-30 05:19] LABS: Alanine Aminotransferase 126 U/L (4-35); Albumin Level 2.6 g/dL (3.5-5.1); Alkaline Phosphatase 279 U/L (38-126); Aspartate Amino Transferase 78 U/L (14-36); Bilirubin,Total 0.3 mg/dL (0.2-1.3); Blood Urea Nitrogen 48 mg/dL (7-17); Calcium 6.9 mg/dL (8.4-10.2); Carbon Dioxide 28 mmol/L (22-30); Chloride 94 mmol/L (98-107); Estimated CRCL calculation 16 ml/min; Estimated Glomerular Filt Rate 13; Glucose 306 mg/dL (65-105); Magnesium 1.7 mg/dL (1.6-2.3); Phosphorus 5.3 mg/dL (2.5-4.5); Potassium 3.4 mmol/L (3.4-5.0); Sodium 131 mmol/L (137-145)
[2020-04-30 05:39] LABS: Platelet Estimate Adequate (Adequate)
[2020-04-30 05:40] LABS: Hypochromasia 1+ (NORMAL); Macrocytosis 1+ (NORMAL); Ovalocytes 1+ (NORMAL)
--- NOTE | 2020-04-30 07:22 | WPDINTPN ---
Progress Note: A&P Assessment and Plan (1) Acute respiratory failure: Qualifiers: Respiratory failure complication: hypoxia Qualified Code(s): J96.01 - Acute respiratory failure with hypoxia Code(s): J96.00 - Acute respiratory failure, unspecified whether with hypoxia or hypercapnia Status: Acute Assessment and Plan: Acute Respiratory failure secondary to pneumonia, encephalopathy, baseline COPD Continue full mechanical ventilation support to prevent hypoxemia/hypercarbia and end organ damage. ABG reviewed. FiO2 of 30% and peep of 5 will will decrease respiratory rate to 14 Worsening chest x-ray with increased pleural effusion on the right side and worsening airspace opacities Low tidal volume ventilation strategy to prevent volutrauma Bronchodilators Chest CT 04/26/2020 IMPRESSION: 1. Bilateral lower lobe and right middle lobe airspace disease, atelectasis versus pneumonia. 2: Bilateral pleural effusions. 3: Cardiomegaly with atherosclerosis. 4: Right paratracheal lymphadenopathy, likely reactive. 5: 3 mm left apical nodule, likely benign. Consider follow-up CT chest in 12 months. (2) Septic shock: Code(s): A41.9 - Sepsis, unspecified organism; R65.21 - Severe sepsis with septic shock Status: Acute Assessment and Plan: Secondary to pneumonia and UTI 04/26/2020 blood cultures negative x2, urine cultures growing gram-positive cocci in clusters, started patient on vancomycin on 04/30/2020 04/26/2020 Urine culture is growing E coli, pansensitive, continue ceftriaxone Azithromycin was switched to doxycycline as patient was placed on amiodarone Pending urine Legionella. Pneumococcal antigen not detected Off vasopressin, continue Levophed. Continue titration to maintain map of > 65 mmHg Patient is off IV fluids (3) Suspected COVID-19 virus infection: Code(s): Z20.828 - Contact with and (suspected) exposure to other viral communicable diseases Status: Acute Assessment and Plan: COVID-19 suspected. SARS-CoV-2 PCR - NEGATIVE Airborne, Droplet and Contact Isolation WAS DISCONTINUED (4) Pneumonia: Code(s): J18.9 - Pneumonia, unspecified organism Status: Acute Assessment and Plan: Sputum cultures from 04/26/2020 growing gram-positive cocci in clusters, started on vancomycin on 04/30/2020 Infectious Disease has been consulted (5) UTI (urinary tract infection): Code(s): N39.0 - Urinary tract infection, site not specified Status: Acute Assessment and Plan: 04/26/2020 urine cultures growing pansensitive E coli, continue ceftriaxone Renal ultrasound does not show any abscess or hydronephrosis (6) BARRON (acute kidney injury): Code(s): N17.9 - Acute kidney failure, unspecified Status: Acute Assessment and Plan: Patient has CKD 5 and was awaiting initiation of dialysis. She has AV graft in her right arm. Presented with acute on chronic kidney disease, Appreciate Nephrology following the patient Renal ultrasound was unremarkable Patient has been started on dialysis on 04/27/2020, received dialysis on 04/28/2020, 04/29/2020 [place] catheter with minimal urine output, in for accurate I&Os Monitor electrolytes. (7) CKD (chronic kidney disease), stage V: Code(s): N18.5 - Chronic kidney disease, stage 5 Status: Acute Assessment and Plan: Patient started on PhosLo for elevated phosphate level (8) Metabolic acidosis: Code(s): E87.2 - Acidosis Status: Acute Assessment and Plan: RESOLVED: Likely related to acute on chronic renal insufficiency patient initially was on bicarb infusion was has been discontinued Dialysis per Nephrology (9) Elevated troponin: Code(s): R79.89 - Other specified abnormal findings of blood chemistry Status: Acute Assessment and Plan: No history of chest pain prior to this incident. Elevation likely secondary to septic shock, BARRON an
[2020-04-30 08:20] LABS: Glucose Point of Care 274 (65-105)
--- NOTE | 2020-04-30 08:20 | PC.NURSE ---
placed amio drip on standby per dr. peñaloza's verbal order. Will continue to monitor.
[2020-04-30] MEDS: TOLNAFTATE 1% POWDER 45 GM BTL 1 APPLIC TOPICAL ×2 (08:28→22:00)
[2020-04-30] MEDS: PANTOPRAZOLE SODIUM IV 40 MG VIAL IV PUSH ×2 (08:29→22:00)
[2020-04-30] MEDS: MIDODRINE HCL 10 MG TABLET FEED TUBE ×3 (08:29→17:17)
[2020-04-30] MEDS: INSULIN GLARGINE (*BKC) 100 UNITS/ML 28 UNITS SUB-Q (08:29)
[2020-04-30] MEDS: CALCIUM ACETATE 667 MG TABLET FEED TUBE ×3 (08:30→17:18)
[2020-04-30] MEDS: HEPARIN SODIUM 5,000 UNITS/ML VIAL 5000 UNITS SUB-Q ×2 (08:30→22:00)
[2020-04-30] MEDS: ATORVASTATIN 20 MG TABLET FEED TUBE (08:31)
[2020-04-30] MEDS: ASPIRIN 325 MG TABLET FEED TUBE (08:31)
[2020-04-30 08:51] LABS: Add Urine Microscopic? YES; Appearance Urine Turbid (Clear); Bacteria Urine Trace /hpf; Bilirubin Urine Negative (Negative); Blood Urine Negative (Negative); Color Urine Yellow (Yellow); Glucose Urine UA 3+ mg/dL (Negative); Ketones Urine Negative (Negative); Leukocyte Esterase Ur 3+ LEU/UL (NEGATIVE); Mucus Urine Rare /lpf; Nitrate Urine Negative (Negative); Protein Urine 2+ mg/dL (Negative); RBC Urine >75 /hpf (0-2); Specific Grav Ur 1.012 (1.001-1.035); Squamous Epithelial Cell Urine Many /hpf (Few); Transitional Epi Cells Urine Few /hpf (None Seen); Urobilinogen Urine Negative mg/dL (<2.0); WBC Clumps Urine Present /HPF; WBC Urine >75 /hpf (0-3)
--- NOTE | 2020-04-30 10:18 | PM.PNNEP ---
Progress Note: A&P Assessment and Plan (1) CKD (chronic kidney disease), stage V: Code(s): N18.5 - Chronic kidney disease, stage 5 Status: Acute Assessment and Plan: The patient has chronic kidney disease. This is due to diabetes, hypertension, and vascular disease. (2) BARRON (acute kidney injury): Code(s): N17.9 - Acute kidney failure, unspecified Status: Acute Assessment and Plan: The patient has acute kidney injury. This is on top of severe chronic kidney disease. Her kidney function may not come back. Getting dialysis to try to remove fluid so she can get off the ventilator. will DUF today. (3) Suspected COVID-19 virus infection: Code(s): Z20.828 - Contact with and (suspected) exposure to other viral communicable diseases Status: Acute Assessment and Plan: Because of the pneumonia and severity of her illness she is getting a COVID-19 test. This is negative. She is on isolation. (4) Encephalopathy: Code(s): G93.40 - Encephalopathy, unspecified Status: Acute Assessment and Plan: sedated. (5) Sepsis: Code(s): A41.9 - Sepsis, unspecified organism Status: Deleted Assessment and Plan: The patient seems to have septic syndrome. Urine culture is positive. blood negative. (6) Metabolic acidosis: Code(s): E87.2 - Acidosis Status: Acute Assessment and Plan: Bicarbonate level is improved off drip (7) Pneumonia: Code(s): J18.9 - Pneumonia, unspecified organism Status: Acute Assessment and Plan: The patient has evidence on chest x-ray. She is getting antibiotics. (8) Anemia: Code(s): D64.9 - Anemia, unspecified Status: Acute Assessment and Plan: She is anemic at baseline. On EPO 3 times a week. Transfuse as needed. will get one today check retic count. (9) Diabetes: Code(s): E11.9 - Type 2 diabetes mellitus without complications Status: Acute Assessment and Plan: She is currently on insulin sliding scale Subjective Date/time seen: 04/30/20 10:18 Interval history: Patient is sedated. On Vent. off both Levophed and vasopressin, Review of Systems Review of Systems: ROS unobtainable: Yes unobtainable due to endotracheal tube Exam Narrative: Exam Narrative: WDWN in NAD skin no rash or sq nodules head ncat lungs mildly coarse at the bases cor reg no rub or gallop abd BS+ no tenderness ext 1+ edema. Or cyanosis Objective Data Vital Signs Vital Signs: Vital Signs - 24 hr 04/29/20 11:48 04/29/20 12:00 04/29/20 14:00 Temperature 35.4 C L Pulse Rate 64 72 62 Respiratory Rate 16 16 Blood Pressure 104/53 L 103/50 L Pulse Oximetry 100 99 100 04/29/20 15:00 04/29/20 15:20 04/29/20 15:36 Temperature 35.2 C L Pulse Rate 63 64 64 Respiratory Rate 16 Blood Pressure 102/47 L 99/47 L Pulse Oximetry 100 100 04/29/20 15:45 04/29/20 16:00 04/29/20 16:15 Temperature 36.3 C L Pulse Rate 61 59 L 66 Respiratory Rate 16 Blood Pressure 101/50 L 95/42 L 79/42 L Pulse Oximetry 100 04/29/20 16:24 04/29/20 16:30 04/29/20 16:45 Temperature Pulse Rate 79 79 69 Respiratory Rate Blood Pressure 94/51 L 105/52 L 105/47 L Pulse Oximetry 04/29/20 17:00 04/29/20 17:15 04/29/20 17:30 Temperature Pulse Rate 68 82 68 Respiratory Rate Blood Pressure 88/42 L 104/53 L 95/49 L Pulse Oximetry 04/29/20 17:45 04/29/20 18:00 04/29/20 18:15 Temperature Pulse Rate 63 78 75 Respiratory Rate 18 Blood Pressure 87/44 L 112/53 L 108/75 Pulse Oximetry 100 98 04/29/20 18:30 04/29/20 18:36 04/29/20 19:05 Temperature 35.1 C L Pulse Rate 74 67 65 Respiratory Rate 16 Blood Pressure 97/74 L 104/48 L 113/51 L Pulse Oximetry 98 04/29/20 19:37 04/29/20 20:00 04/29/20 22:00 Temperature 35.9 C L Pulse Rate 62 65 71 Respiratory Rate 16 16
--- NOTE | 2020-04-30 10:23 | PCDIET ---
Nutrition Follow-Up Complete: Nutrition Diagnosis: Inadequate oral intake related to mechanical ventilation as evidenced by tube feeding rate providing less than estimated needs. Nutrition Goal: Meet estimated nutritional needs Goal met. Patient tolerating Nepro at 40mL/hr goal rate without reported issues. No significant residuals documented. Last recorded weight is 96.6 kg which is increased. Patient had 1.8L UF yesterday with plan for dialysis again today. Bowel Motility: BM x 2 on 04/29/20. Labs Reviewed: Glu (306), BUN (48), Cr (3.5), Na (131), Alb (2.6), PO4 (5.3) Meds Noted: Lantus, Novolog, Albuterol, Fentanyl, Vancomycin, Amiodarone, Protonix, Phoslo, Rocephin, Doxycycline, Epogen Additional Notes: Abrasions to right miranda and right knee, per nursing; left forearm with skin tear. No new recommendations at this time. Will continue to monitor with same goal. Nutrition Monitoring and Evaluation: Follow up every Wednesday/Wednesday. Follow daily in ICU rounds.
[2020-04-30 12:30] LABS: Reticulocyte Hemoglobin Conten 31.3 pg (28.2-35.7); Reticulocyte Percent 6.55 % (0.7-4.3); Reticulocytes Absolute 0.15 B/L (32.2-175.7)
[2020-04-30 12:31] LABS: Glucose Point of Care 345 (65-105)
--- NOTE | 2020-04-30 13:22 | WPDGICN ---
Assessment and Plan Assessment and plan (1) Elevated LFTs: Code(s): R79.89 - Other specified abnormal findings of blood chemistry Status: Acute Assessment and Plan: Elevated LFTs likely related to sepsis but. Hepatitis serologies are negative. Plan to continue supportive care. Monitor LFTs conservatively at this point. (2) Anemia: Code(s): D64.9 - Anemia, unspecified Status: Acute Assessment and Plan: Anemia likely multifactorial. A strong component is likely secondary to chronic disease. Recent stool for occult blood was identified as being positive suggesting patient may have stress gastritis. Agree with proton pump inhibitor. Transfuse to maintain stable hemoglobin during dialysis. And continue to monitor hemoglobin. Invasive testing not anticipate unless hemoglobin drops precipitously. (3) Pneumonia: Code(s): J18.9 - Pneumonia, unspecified organism Status: Acute (4) Aortic valve stenosis: Code(s): I35.0 - Nonrheumatic aortic (valve) stenosis Status: Acute (5) Acute on chronic kidney failure: Qualifiers: Acute renal failure type: unspecified Chronic kidney disease stage: stage 5, not on chronic dialysis Qualified Code(s): N17.9 - Acute kidney failure, unspecified; N18.5 - Chronic kidney disease, stage 5 Code(s): N17.9 - Acute kidney failure, unspecified; N18.9 - Chronic kidney disease, unspecified Status: Acute (6) Acute respiratory failure: Qualifiers: Respiratory failure complication: unspecified whether with hypoxia or hypercapnia Qualified Code(s): J96.00 - Acute respiratory failure, unspecified whether with hypoxia or hypercapnia Code(s): J96.00 - Acute respiratory failure, unspecified whether with hypoxia or hypercapnia Status: Acute (7) History of aortic valve replacement with bioprosthetic valve: Code(s): Z95.3 - Presence of xenogenic heart valve Status: Acute GI Consult Note Consult date/time: 04/30/20 13:22 HPI: Martha Reid is a 69 year old female seen in evaluation at the request of the hospitalist service. Patient presented to the hospital with shortness of breath on 04/26. She was found to have pneumonia respiratory failure in soon currently intubated on full ventilator support. She has a past medical history of COPD is unable to add any additional history. Since her hospital stay she has been noted to have modest increase of LFTs compared to previous admission 1 year ago. Slight decline in hemoglobin has been noted. With no overt bleeding identified. Stool Hemoccult positive blood stool sample was identified recently. Patient's past medical history is significant for diabetes mellitus. She has felt to have aortic stenosis, chronic kidney disease requiring dialysis, underlying COPD. Atherosclerotic heart disease. She has a history of aortic valve replacement with porcine heart valve. Review of Systems Review of Systems: ROS unobtainable: Yes unobtainable due to endotracheal tube PMFSH Past Medical History Medical History Aortic valve stenosis Echocardiogram in December 2019 showed at least mild bioprosthetic aortic valve stenosis with an aortic valve area of 1.4 centimeter squared. Asthma Cerebrovascular accident (~2013) Following coronary artery bypass grafting in 2013, with mild right hand weakness. Chronic anemia Chronic kidney disease, stage 5 GFR in December 2019 was around 13. She does have right upper extremity fistula as she nears dialysis. Chronic obstructive pulmonary disease Patient is a lifelong nonsmoker, and this diagnosis is poorly documented in her electronic medical records. Congestive heart failure (~12/2019) Echocardiogram was a technically difficult study with limited views. Left ventricular systolic function was mildly reduced with an estimated ejection fraction of 50 to 55%, moderately increased lef
[2020-04-30] MEDS: LEVALBUTEROL NEB 1.25 MG/3 ML 0.63 MG INHALATION ×2 (13:58→19:45)
[2020-04-30] MEDS: IPRATROPIUM BR 0.02% INH SOLN 0.5 MG/2.5 ML VIAL INHALATION ×2 (13:59→19:45)
--- NOTE | 2020-04-30 14:29 | PM.PNCARD ---
Progress Note: A&P Assessment and Plan (1) Elevated troponin: Code(s): R79.89 - Other specified abnormal findings of blood chemistry Status: Acute Assessment and Plan: Multifactorial etiology, less likely acute coronary syndrome and/or plaque rupture as primary explanation. Most likely demand ischemia with known underlying CAD, acute on chronic renal failure, hypotension/septic shock on pressor support. COVID-19 negative. Conservative therapy at this time. hold off on systemic anticoagulation at this time. -recheck of troponin 0.676 -Echo 04/30/2020:Mild LV enlargement, severe LVH, severe LV systolic dysfunction, ejection fraction 25-30%; abnormal diastolic function. 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 Mild RV enlargement. Systolic and diastolic ventricular septal flattening consistent with elevated RV pressure and volume. Mild left atrial enlargement. Dense mitral annular calcification, moderate mitral regurgitation. Aortic valve is not well visualized, moderate aortic stenosis, v max 2.8 m/sec, peak gradient 32, mean gradient 16 mmHg, DVI 0.39, JUAN M 1 cm2. Moderate to severe tricuspid regurgitation, moderate pulmonary hypertension, RVSP 53 mmHg. When compared to echocardiogram from 01/12/2020 LV systolic function is much worse. -Dialysis for volume removal (2) Coronary artery disease involving [place] coronary artery of [place] heart: Qualifiers: Associated angina: without angina Qualified Code(s): I25.10 - Atherosclerotic heart disease of [place] coronary artery without angina pectoris Code(s): I25.10 - Atherosclerotic heart disease of [place] coronary artery without angina pectoris Status: Acute Assessment and Plan: As above, continue medical therapy aspirin, statin. Did not tolerate beta-mamie therapy 04/27/2020. (3) Acute respiratory failure: Qualifiers: Respiratory failure complication: hypoxia Qualified Code(s): J96.01 - Acute respiratory failure with hypoxia Code(s): J96.00 - Acute respiratory failure, unspecified whether with hypoxia or hypercapnia Status: Acute Assessment and Plan: Management per Critical Care Service. She is being treated for pneumonia. Wean ventilatory support as able. COVID-19 negative. (4) Septic shock: Code(s): A41.9 - Sepsis, unspecified organism; R65.21 - Severe sepsis with septic shock Status: Acute Assessment and Plan: Pressors have been weaned off. Continue antibiotics and supportive care. Stress dose steroids initiated per Critical Care. (5) Acute kidney injury superimposed on chronic kidney disease: Code(s): N17.9 - Acute kidney failure, unspecified; N18.9 - Chronic kidney disease, unspecified Status: Acute Assessment and Plan: Hemodialysis initiated. Appreciate Nephrology involvement. (6) History of aortic valve replacement with bioprosthetic valve: Code(s): Z95.3 - Presence of xenogenic heart valve Status: Acute Assessment and Plan: Stable, intact function possible mild prosthetic stenosis on echo in December LV systolic function as above (7) Suspected COVID-19 virus infection: Code(s): Z20.828 - Contact with and (suspected) exposure to other viral communicable diseases Status: Acute Assessment and Plan: Negative (8) Pneumonia: Code(s): J18.9 - Pneumonia, unspecified organism Status: Acute Assessment and Plan: As above. Per Critical Care Service. (9) Acute on chronic anemia: Code(s): D64.9 - Anemia, unspecified Status: Acute Assessment and Plan: H&H drifting down. Will get unit of blood today. No signs of bleeding. Secondary to chronic kidney disease.
[2020-04-30 17:07] LABS: Glucose Point of Care 307 (65-105)
--- NOTE | 2020-04-30 17:35 | P.PNIM_ITS ---
Progress Note: A&P Assessment and Plan (1) Acute respiratory failure: Qualifiers: Respiratory failure complication: hypoxia Qualified Code(s): J96.01 - Acute respiratory failure with hypoxia Code(s): J96.00 - Acute respiratory failure, unspecified whether with hypoxia or hypercapnia Status: Acute Assessment and Plan: 69-year-old female with history of coronary artery disease and chronic kidney disease stage 5 due to diabetes and hypertension, patient was found unresponsive at home EMS was called patient was and respiratory distress and attempt to intubation was unsuccessful patient was brought to emergency department on BiPAP still struggling patient was intubated and currently on vent. Continues to be on the ventilator. (2) Sepsis: Code(s): A41.9 - Sepsis, unspecified organism Status: Deleted Assessment and Plan: * On admission and supported by tachycardia, tachypnea, relative hypotension, and lactic acidosis. * On vasopressin * covid pending (3) Pneumonia: Code(s): J18.9 - Pneumonia, unspecified organism Status: Acute Assessment and Plan: * Atelectasis versus pneumonia noted on chest CT. * Will empirically treat with azithromycin and ceftriaxone. * sputum and blood culture pending (4) Urinary tract infection: Code(s): N39.0 - Urinary tract infection, site not specified Status: Acute Assessment and Plan: * Urine culture is growing E coli pansensitive continue Rocephin (5) Metabolic acidosis: Code(s): E87.2 - Acidosis Status: Acute Assessment and Plan: * * Vent management is per the forming roll operator heavy duty. * (6) Acute kidney injury superimposed on chronic kidney disease: Code(s): N17.9 - Acute kidney failure, unspecified; N18.9 - Chronic kidney disease, unspecified Status: Acute Assessment and Plan: * Likely multifactorial in etiology to include to include possible ATN from sepsis, hypovolemia due to anemia +/- 3rd spacing. * May need initiation of dialysis, and thus will consult Nephrology. * May need dialysis creat is 3.5. (7) Type 2 diabetes mellitus: Code(s): E11.9 - Type 2 diabetes mellitus without complications Status: Acute Assessment and Plan: * Initiate sliding scale insulin, Accu-Cheks, and hypoglycemic protocol. (8) Congestive heart failure: Onset Date: ~12/2019 Code(s): I50.9 - Heart failure, unspecified Status: Acute Assessment and Plan: * Patient with mixed systolic and diastolic congestive heart failure. * Ischemic cardiomyopathy with improved ejection fraction to 50 to 55% on echo in December 2019. * (9) Acute on chronic anemia: Code(s): D64.9 - Anemia, unspecified Status: Acute Assessment and Plan: * Check stool for occult blood. Subjective Date/time seen: 04/30/20 17:35 Interval history: Pt is in icu on ventilator, awaiting covid test. pt has history of coronary artery disease status post three-vessel CABG, aorti
--- NOTE | 2020-04-30 17:35 | PM.IMPN ---
Progress Note: A&P Assessment and Plan (1) Acute respiratory failure: Qualifiers: Respiratory failure complication: hypoxia Qualified Code(s): J96.01 - Acute respiratory failure with hypoxia Code(s): J96.00 - Acute respiratory failure, unspecified whether with hypoxia or hypercapnia Status: Acute Assessment and Plan: 69-year-old female with history of coronary artery disease and chronic kidney disease stage 5 due to diabetes and hypertension, patient was found unresponsive at home EMS was called patient was and respiratory distress and attempt to intubation was unsuccessful patient was brought to emergency department on BiPAP still struggling patient was intubated and currently on vent. Continues to be on the ventilator. (2) Sepsis: Code(s): A41.9 - Sepsis, unspecified organism Status: Deleted Assessment and Plan: On admission and supported by tachycardia, tachypnea, relative hypotension, and lactic acidosis. On vasopressin covid pending (3) Pneumonia: Code(s): J18.9 - Pneumonia, unspecified organism Status: Acute Assessment and Plan: Atelectasis versus pneumonia noted on chest CT. Will empirically treat with azithromycin and ceftriaxone. sputum and blood culture pending (4) Urinary tract infection: Code(s): N39.0 - Urinary tract infection, site not specified Status: Acute Assessment and Plan: Urine culture is growing E coli pansensitive continue Rocephin (5) Metabolic acidosis: Code(s): E87.2 - Acidosis Status: Acute Assessment and Plan: Vent management is per the rest room attendant. (6) Acute kidney injury superimposed on chronic kidney disease: Code(s): N17.9 - Acute kidney failure, unspecified; N18.9 - Chronic kidney disease, unspecified Status: Acute Assessment and Plan: Likely multifactorial in etiology to include to include possible ATN from sepsis, hypovolemia due to anemia +/- 3rd spacing. May need initiation of dialysis, and thus will consult Nephrology. May need dialysis creat is 3.5. (7) Type 2 diabetes mellitus: Code(s): E11.9 - Type 2 diabetes mellitus without complications Status: Acute Assessment and Plan: Initiate sliding scale insulin, Accu-Cheks, and hypoglycemic protocol. (8) Congestive heart failure: Onset Date: ~12/2019 Code(s): I50.9 - Heart failure, unspecified Status: Acute Assessment and Plan: Patient with mixed systolic and diastolic congestive heart failure. Ischemic cardiomyopathy with improved ejection fraction to 50 to 55% on echo in December 2019. (9) Acute on chronic anemia: Code(s): D64.9 - Anemia, unspecified Status: Acute Assessment and Plan: Check stool for occult blood. Subjective Date/time seen: 04/30/20 17:35 Interval history: Pt is in icu on ventilator, awaiting covid test. pt has history of coronary artery disease status post three-vessel CABG, aortic stenosis status post bioprosthetic aortic valve replacement, chronic kidney disease narrowing dialysis with maturing right upper extremity fistula, hypertension, chronic anemia, and type 2 diabetes mellitus. High suspicion of covid. ICU attending on the case. Review of Systems Review of Systems: ROS unobtainable: Yes unobtainable due to endotracheal tube Exam Narrative: Exam Narrative: pt is intubated in icu Objective Data Vital Signs Sonia
[2020-04-30 19:35] LABS: Hepatitis B Core Ab Total Nonreactive (Nonreactive)
[2020-04-30] MEDS: EPOETIN ALFA 10,000 UNITS/ML VIAL 10000 UNITS IV PUSH (20:12)
[2020-04-30 20:16] LABS: Legionella pneumophila Ag Ur Not Detected (Not Detected)
[2020-04-30 22:10] LABS: Glucose Point of Care 343 (65-105)
[2020-05-01] VITALS (45 sets, daily range): BP systolic 90–128; BP diastolic 44–64; PULSE 64–90; RESP 14–18; TEMP 35.7–36.9; O2SAT 90–100
[2020-05-01 00:13] LABS: Glucose Point of Care 274 (65-105)
[2020-05-01] MEDS: INSULIN ASPART (*BKC) 100 UNITS/ML SUB-Q ×3 (00:13→08:43)
[2020-05-01] MEDS: HYDROCORTISONE SODIUM SUCCINATE 100 MG/2 ML VIAL 50 MG IV PUSH ×4 (00:16→21:36)
[2020-05-01] MEDS: IPRATROPIUM BR 0.02% INH SOLN 0.5 MG/2.5 ML VIAL INHALATION ×4 (01:35→22:27)
[2020-05-01] MEDS: LEVALBUTEROL NEB 1.25 MG/3 ML 0.63 MG INHALATION ×4 (01:35→22:27)
[2020-05-01 04:17] LABS: Alveolar/Arterial O2 Gradient 86.5 mmHg; Base Excess ABG 0.6 mEq/l (+/-2.0); Carboxyhemoglobin 0.3 % THb (0-2.0); Fractional Inspired Oxygen 30 %; HCO3 ABG 23.7 mEq/l (22.0-26.0); Oxygen Content ABG 12.1 %vol (16.0-22.0); Oxygen Saturation ABG 97.5 % (95.0-100.0); Oxyhemoglobin 95.3 % THb (90.0-100.0); PCO2 ABG 32.1 mmHg (35.0-45.0); PO2 ABG 89.7 mmHg (80.0-100.0); PO2 FiO2 Ratio Arterial Blood 2.99 %; Reduced Hemoglobin 4.4 %THb (0-5.0); Total Hemoglobin 8.9 g/dL (12.0-18.0); pH ABG 7.486 (7.350-7.450)
[2020-05-01 04:19] LABS: Arterial Blood Gas PEEP 5 cmH2O; Arterial Blood Gas Tidal Volume 420 ml; Arterial Blood Gas Vent Mode CMV; Arterial Blood Gas Ventilator rate 14 /MIN; Device VENTILATOR; Modified Allen's Test Unable to perform; Site Drawn LEFT RADIAL
[2020-05-01 05:03] LABS: Basophils Percent Auto 0.1 % (0.2-1.2); Hematocrit 26.6 % (37.0-47.0); Hemoglobin 8.4 g/dL (12.0-15.0); Immature Granulocyte Absolute 0.33 K/mm3 (0.00-0.031); Immature Granulocyte Percent A 1.1 % (0-0.5); Lymphocytes Absolute Auto 0.39 K/mm3 (0.9-3.2); Lymphocytes Percent Auto 1.3 % (18.3-44.2); Mean Corpuscular HGB Conc 31.6 g/dl (32-36); Mean Corpuscular Hemoglobin 28.4 pg (26-34); Mean Corpuscular Volume 89.9 fl (80-100); Mean Platelet Volume 11.8 fl (7.4-10.4); Monocytes Absolute Auto 1.1 K/mm3 (0.1-0.6); Monocytes Percent Auto 3.6 % (2.6-8.5); Neutrophils Absolute Auto 27.9 K/mm3 (1.3-6.7); Neutrophils Percent Auto 93.9 % (45.5-73.1); Nucleated Red Blood Cells Absolute Auto 1.2 K/mm3 (0.0-0.012); Nucleated Red Blood Cells Perc 3.9 % (0.0-0.2); Platelet Count Result 234 k/mm3 (150-375); Red Blood Count 2.96 M/mm3 (4.2-5.4); Red Cell Distribution Width 18.1 % (11.5-14.5); White Blood Count 29.7 K/mm3 (4.5-10.0)
[2020-05-01 05:25] LABS: Alanine Aminotransferase 123 U/L (4-35); Alkaline Phosphatase 281 U/L (38-126); Aspartate Amino Transferase 57 U/L (14-36); Bilirubin,Total 0.3 mg/dL (0.2-1.3); Blood Urea Nitrogen 63 mg/dL (7-17); Calcium 7.1 mg/dL (8.4-10.2); Carbon Dioxide 26 mmol/L (22-30); Chloride 91 mmol/L (98-107); Estimated CRCL calculation 14 ml/min; Estimated Glomerular Filt Rate 11; Glucose 247 mg/dL (65-105); Magnesium 1.8 mg/dL (1.6-2.3); Phosphorus 5.7 mg/dL (2.5-4.5); Potassium 3.4 mmol/L (3.4-5.0); Sodium 130 mmol/L (137-145)
--- NOTE | 2020-05-01 08:32 | WPDINTPN ---
Progress Note: A&P Assessment and Plan (1) Acute respiratory failure: Qualifiers: Respiratory failure complication: hypoxia Qualified Code(s): J96.01 - Acute respiratory failure with hypoxia Code(s): J96.00 - Acute respiratory failure, unspecified whether with hypoxia or hypercapnia Status: Acute Assessment and Plan: Acute Respiratory failure secondary to pneumonia, encephalopathy, baseline COPD. She was intubated on 04/26. Continue full mechanical ventilation support to prevent hypoxemia/hypercarbia and end organ damage. ABG reviewed. FiO2 of 30% and peep of 5. Chest x-ray reviewed. She has bilateral airspace disease with bilateral pleural effusion more on the right side. There is possible loculation of the pleural fluid on the right side as well. Low tidal volume ventilation strategy to prevent volutrauma Bronchodilators I will ask interventional radiology to do right-sided thoracentesis both diagnostic as well as therapeutic to improve respiratory mechanics. I will send all fluid analysis including culture and cytology. Sedation vacation trial on the daily basis. I will wean Versed completely and put her on fentanyl drip instead. If needed then she can be started on low-dose propofol as well. She will be placed on spontaneous breathing trial today to see if she tolerated. Chest CT 04/26/2020 IMPRESSION: 1. Bilateral lower lobe and right middle lobe airspace disease, atelectasis versus pneumonia. 2: Bilateral pleural effusions. 3: Cardiomegaly with atherosclerosis. 4: Right paratracheal lymphadenopathy, likely reactive. 5: 3 mm left apical nodule, likely benign. Consider follow-up CT chest in 12 months. (2) Septic shock: Code(s): A41.9 - Sepsis, unspecified organism; R65.21 - Severe sepsis with septic shock Status: Acute Assessment and Plan: Secondary to pneumonia and UTI. 04/26/2020 blood cultures negative x2, urine cultures growing gram-positive cocci in clusters, started patient on vancomycin on 04/30/2020 04/26/2020 Urine culture is growing E coli, pansensitive, continue ceftriaxone Azithromycin was switched to doxycycline as patient was placed on amiodarone Pending urine Legionella. Pneumococcal antigen not detected Off vasopressin, continue Levophed. Continue titration to maintain map of > 65 mmHg Patient is off IV fluids. She has been weaned off from pressors since yesterday afternoon. Will start weaning steroid and switch Solu-Cortef from 50 IV 4 times a day to 50 IV 3 times a day and continue to wean it down and stop within the next 2 days. Midodrine has been added because of inability to wean pressors. Will continue it for now. (3) Suspected COVID-19 virus infection: Code(s): Z20.828 - Contact with and (suspected) exposure to other viral communicable diseases Status: Acute Assessment and Plan: COVID-19 suspected. SARS-CoV-2 PCR - NEGATIVE Airborne, Droplet and Contact Isolation WAS DISCONTINUED (4) Pneumonia: Code(s): J18.9 - Pneumonia, unspecified organism Status: Acute Assessment and Plan: Sputum cultures from 04/26/2020 grew normal respiratory luisa. Started on vancomycin on 04/30/2020 for concern of gram-positive cocci on the sputum. I think we can deescalate antibiotics. May potentially stop vancomycin tomorrow if cultures remain negative and if pleural fluid is not suggestive of parapneumonic or picture of empyema. She will complete the course of doxycycline tomorrow as well. I will continue ceftriaxone for total of 7 days. Infectious Disease has been consulted with pending recommendations. (5) UTI (urinary tract infection): Code(s): N39.0 - Urinary tract infection, site not specified Status: Acute Assessment and Plan: 04/26/2020 urine cultures growing pansensitive E coli, continue ceftriaxone Renal ultrasound does not show any abscess or hydronephrosis (6) BARRON (acute kidney injury): Code(s)
[2020-05-01] MEDS: ATORVASTATIN 20 MG TABLET FEED TUBE (08:42)
[2020-05-01] MEDS: ASPIRIN 325 MG TABLET FEED TUBE (08:42)
[2020-05-01] MEDS: CALCIUM ACETATE 667 MG TABLET FEED TUBE ×3 (08:42→17:33)
[2020-05-01] MEDS: HEPARIN SODIUM 5,000 UNITS/ML VIAL 5000 UNITS SUB-Q ×2 (08:43→20:50)
[2020-05-01] MEDS: MIDODRINE HCL 10 MG TABLET FEED TUBE ×3 (08:43→17:33)
[2020-05-01] MEDS: PANTOPRAZOLE SODIUM IV 40 MG VIAL IV PUSH ×2 (08:43→20:51)
[2020-05-01] MEDS: TOLNAFTATE 1% POWDER 45 GM BTL 1 APPLIC TOPICAL ×2 (08:44→20:51)
[2020-05-01] MEDS: INSULIN GLARGINE (*BKC) 100 UNITS/ML 32 UNITS SUB-Q (08:44)
[2020-05-01 08:49] LABS: Glucose Point of Care 219 (65-105)
--- NOTE | 2020-05-01 09:32 | WPDGIPROGNO ---
Progress Note: A&P Additional Plan Patient remains intubated in the intensive care unit. No signs of active GI blood loss. Unable to give history. Physical exam reveals Vital Signs to be stable. No longer on pressor agents. Lungs are few rhonchi. Heart without murmur. Abdomen is soft with no organomegaly. Labs reveal hemoglobin 8.4, hematocrit 26.6,. Improved after transfusion during dialysis yesterday. WBC 29.7 elevated. BUN 63, creatinine 4.2. Total bilirubin 0.3, AST 57, ALT 123. Impression 1. Respiratory failure. Patient remains on ventilator. Appears to have underlying pneumonia. 2. Acute on chronic renal failure. Patient remains on dialysis. This likely contributes to a baseline anemia. 3. elevated LFTs. Likely related to sepsis. Plan to continue monitor LFTs. 4. Anemia. Likely multifactorial. Stool was Hemoccult positive. Suspect she has baseline anemia with possible stress gastritis at present. Will continue proton pump inhibitor for now. Continue monitor hemoglobin. Transfuse as required. Subjective Date/time seen: 05/01/20 09:32 Objective Data Vital Signs Vital Signs: Vital Signs - 24 hr 04/30/20 10:00 04/30/20 11:20 04/30/20 12:00 Temperature 36.7 C Pulse Rate 74 68 79 Respiratory Rate 15 15 Blood Pressure 93/45 L 106/52 L Pulse Oximetry 99 100 98 04/30/20 13:55 04/30/20 14:00 04/30/20 14:02 Temperature Pulse Rate 76 74 74 Respiratory Rate 16 18 Blood Pressure 116/59 L Pulse Oximetry 99 04/30/20 14:03 04/30/20 14:06 04/30/20 16:00 Temperature Pulse Rate 76 78 101 H Respiratory Rate 16 20 Blood Pressure 102/54 L Pulse Oximetry 98 96 04/30/20 16:38 04/30/20 17:02 04/30/20 18:00 Temperature 36.6 C Pulse Rate 94 82 90 Respiratory Rate 15 19 Blood Pressure 102/54 L 106/54 L Pulse Oximetry 95 95 96 04/30/20 18:01 04/30/20 18:16 04/30/20 18:19 Temperature Pulse Rate 97 88 88 Respiratory Rate 18 Blood Pressure 106/54 L 102/49 L Pulse Oximetry 98 04/30/20 18:30 04/30/20 18:45 04/30/20 19:00 Temperature Pulse Rate 97 93 89 Respiratory Rate Blood Pressure 114/52 L 111/56 L 110/51 L Pulse Oximetry 04/30/20 19:15 04/30/20 19:19 04/30/20 19:23 Temperature 36.4 C L Pulse Rate 90 90 90 Respiratory Rate 16 Blood Pressure 110/56 L 118/56 L 118/56 L Pulse Oximetry 98 04/30/20 19:30 04/30/20 19:33 04/30/20 19:38 Temperature 36.4 C Pulse Rate 88 88 88 Respiratory Rate 17 19 Blood Pressure 113/58 L 102/53 L Pulse Oximetry 97 97 04/30/20 19:39 04/30/20 19:45 04/30/20 19:48 Temperature Pulse Rate 81 78 75 Respiratory Rate 14 Blood Pressure 99/51 L Pulse Oximetry 100 04/30/20 19:55 04/30/20 20:00 04/30/20 20:06 Temperature 36.6 C Pulse Rate 76 88 85 Respiratory Rate 14 18 18 Blood Pressure 111/57 L 111/57 L Pulse Oximetry 97 97 04/30/20 20:15 04/30/20 20:30 04/30/20 20:45 Temperature Pulse Rate 87 87 89 Respiratory Rate Blood Pressure 113/56 L 110/51 L 108/53 L Pulse Oximetry 04/30/20 21:00 04/30/20 21:15 04/30/20 21:19 Temperature Pulse Rate 87 75 78 Respiratory Rate Blood Pressure 112/49 L 87/43 L 90/47 L Pulse Oximetry 04/30/20 21:30 04/30/20 22:00 04/30/20 22:40 Temperature 36.4 C 36.5 C Pulse Rate 75 81 78 Respiratory Rate 15 18 Blood Pressure 100/51 L 117/60 Pulse Oximetry 98 99 98 04/30/20 23:00 04/30/20 23:29 05/01/20 00:00 Temperature 36.6 C Pulse Rate 85 79 84 Respiratory Rate 18 15 17 Blood Pressure 124/64 128/64 Pulse Oximetry 99 98 99 05/01/20 01:31 05/01/20 01:38 05/01/20 02:00 Temperature Pulse Rate 86 84 74 Respiratory Rate 17 15 Blood Pressure 117/53 L Pulse Oximetry 99 98 05/01/20 02:01 05/01/20 03:34 05/01/20 04:00 Temperature 36.6 C Pulse Rate 84 72 86 Respiratory Rate 16 14 18 Blood Pressure 108/52 L Pulse Oximetry 98 97 05/01/20 04:22 05/01/20 05:55 05/01/20 06:00 T
--- NOTE | 2020-05-01 10:39 | PCDIET ---
ICU Rounding Note: Patient tolerating Nepro tube feedings at goal rate of 40mL/hr. Plan for thoracentesis and dialysis today and possible SBT tomorrow. Last recorded weight is 94.9kg which is decreased from last review. -I/O. s/p 3L UF yesterday. Bowel Motility: BM x 2 on 04/29/20. Labs Reviewed: Glu (247), BUN (63), Cr (4.2), Na (130), Alb (3.0), Jennifer Ca (7.9), PO4 (5.7) Meds Noted: Albumin, Albuterol, Phoslo, Rocephin, Doxycycline, Epogen, Fentanyl, Solu Cortef, Novolog, Lantus Additional Notes: Left knee abrasion. Bilateral buttocks and groin areas macerated. Right miranda and left lower arm skin tear. Agree with use of calcium based binder at this time; may want to consider increasing dose if PO4 further increases. Following daily in ICU rounds. Assessing/reassessing every Wednesday/Wednesday.
--- NOTE | 2020-05-01 12:32 | PM.PNCARD ---
Progress Note: A&P Assessment and Plan (1) Elevated troponin: Code(s): R79.89 - Other specified abnormal findings of blood chemistry Status: Acute Assessment and Plan: -Multifactorial etiology, peaked at 1.3. Most likely demand ischemia with known underlying CAD, acute on chronic renal failure, hypotension/septic shock on pressor support. COVID-19 negative. Doubt ACS. Conservative therapy at this time. hold off on systemic anticoagulation at this time. -LV systolic dysfunction as above, new cardiomyopathy, worse than a few months ago. -Dialysis for volume removal -BP too low to address w/ CHF meds -Echo 04/30/2020:Mild LV enlargement, severe LVH, severe LV systolic dysfunction, ejection fraction 25-30%; abnormal diastolic function. 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 Mild RV enlargement. Systolic and diastolic ventricular septal flattening consistent with elevated RV pressure and volume. Mild left atrial enlargement. moderate mitral regurgitation. Moderate prosthetic valve aortic stenosis, v max 2.8 m/sec, peak gradient 32, mean gradient 16 mmHg, DVI 0.39, JUAN M 1 cm2. Moderate to severe tricuspid regurgitation, moderate pulmonary hypertension, RVSP 53 mmHg. When compared to echocardiogram from 01/12/2020 LV systolic function is much worse. (2) Coronary artery disease involving [place] coronary artery of [place] heart: Qualifiers: Associated angina: without angina Qualified Code(s): I25.10 - Atherosclerotic heart disease of [place] coronary artery without angina pectoris Code(s): I25.10 - Atherosclerotic heart disease of [place] coronary artery without angina pectoris Status: Acute Assessment and Plan: As above, continue medical therapy aspirin, statin. Did not tolerate beta-mamie therapy 04/27/2020. (3) History of aortic valve replacement with bioprosthetic valve: Code(s): Z95.3 - Presence of xenogenic heart valve Status: Acute Assessment and Plan: Mild to moderate prosthetic stenosis on echo this admission. (4) Acute respiratory failure: Qualifiers: Respiratory failure complication: hypoxia Qualified Code(s): J96.01 - Acute respiratory failure with hypoxia Code(s): J96.00 - Acute respiratory failure, unspecified whether with hypoxia or hypercapnia Status: Acute Assessment and Plan: Management per Critical Care Service. She is being treated for pneumonia. Weaning ventilatory support as able; hopefully thoracentesis and further dialysis will help. Mental status improving. COVID-19 negative. (5) Septic shock: Code(s): A41.9 - Sepsis, unspecified organism; R65.21 - Severe sepsis with septic shock Status: Acute Assessment and Plan: Pressors have been weaned off. Continue antibiotics and supportive care. (6) Acute kidney injury superimposed on chronic kidney disease: Code(s): N17.9 - Acute kidney failure, unspecified; N18.9 - Chronic kidney disease, unspecified Status: Acute Assessment and Plan: Hemodialysis initiated. Appreciate Nephrology involvement. (7) Suspected COVID-19 virus infection: Code(s): Z20.828 - Contact with and (suspected) exposure to other viral communicable diseases Status: Acute Assessment and Plan: Negative (8) Pneumonia: Code(s): J18.9 - Pneumonia, unspecified organism Status: Acute Assessment and Plan: As above. Per Critical Care Service. (9) Acute on chronic anemia: Code(s): D64.9 - Anemia, unspecified Status: Acute Assessment and Plan: H&H drifting down. No overt bleeding but PFOB +.. Secondary to chronic kidney disease. (10) LBBB (left bundle branch block):
[2020-05-01 12:33] LABS: Glucose Point of Care 159 (65-105)
--- NOTE | 2020-05-01 12:40 | WPDINFPN2 ---
Progress Note: A&P Assessment and Plan (1) Pneumonia: Code(s): J18.9 - Pneumonia, unspecified organism Status: Acute Assessment and Plan: 1. Lung infiltrates, due to CAP and CHF 2. Bioprosthetic AVR 3. CRF on HD 4. Leukocytosis, multifactorial, largely due to steroid Rx REC Ctx and Doxy #5. repeat PCT level to help define length of therapy. Keep steroid to the minimum required. The R femoral TLC should be changed -- dwell time 5 days and she is at high risk of complication. Subjective Date/time seen: 05/01/20 12:40 Objective Data Vital Signs Vital Signs: Vital Signs - 24 hr 04/30/20 13:55 04/30/20 14:00 04/30/20 14:02 Temperature Pulse Rate 76 74 74 Respiratory Rate 16 18 Blood Pressure 116/59 L Pulse Oximetry 99 04/30/20 14:03 04/30/20 14:06 04/30/20 16:00 Temperature Pulse Rate 76 78 101 H Respiratory Rate 16 20 Blood Pressure 102/54 L Pulse Oximetry 98 96 04/30/20 16:38 04/30/20 17:02 04/30/20 18:00 Temperature 36.6 C Pulse Rate 94 82 90 Respiratory Rate 15 19 Blood Pressure 102/54 L 106/54 L Pulse Oximetry 95 95 96 04/30/20 18:01 04/30/20 18:16 04/30/20 18:19 Temperature Pulse Rate 97 88 88 Respiratory Rate 18 Blood Pressure 106/54 L 102/49 L Pulse Oximetry 98 04/30/20 18:30 04/30/20 18:45 04/30/20 19:00 Temperature Pulse Rate 97 93 89 Respiratory Rate Blood Pressure 114/52 L 111/56 L 110/51 L Pulse Oximetry 04/30/20 19:15 04/30/20 19:19 04/30/20 19:23 Temperature 36.4 C L Pulse Rate 90 90 90 Respiratory Rate 16 Blood Pressure 110/56 L 118/56 L 118/56 L Pulse Oximetry 98 04/30/20 19:30 04/30/20 19:33 04/30/20 19:38 Temperature 36.4 C Pulse Rate 88 88 88 Respiratory Rate 17 19 Blood Pressure 113/58 L 102/53 L Pulse Oximetry 97 97 04/30/20 19:39 04/30/20 19:45 04/30/20 19:48 Temperature Pulse Rate 81 78 75 Respiratory Rate 14 Blood Pressure 99/51 L Pulse Oximetry 100 04/30/20 19:55 04/30/20 20:00 04/30/20 20:06 Temperature 36.6 C Pulse Rate 76 88 85 Respiratory Rate 14 18 18 Blood Pressure 111/57 L 111/57 L Pulse Oximetry 97 97 04/30/20 20:15 04/30/20 20:30 04/30/20 20:45 Temperature Pulse Rate 87 87 89 Respiratory Rate Blood Pressure 113/56 L 110/51 L 108/53 L Pulse Oximetry 04/30/20 21:00 04/30/20 21:15 04/30/20 21:19 Temperature Pulse Rate 87 75 78 Respiratory Rate Blood Pressure 112/49 L 87/43 L 90/47 L Pulse Oximetry 04/30/20 21:30 04/30/20 22:00 04/30/20 22:40 Temperature 36.4 C 36.5 C Pulse Rate 75 81 78 Respiratory Rate 15 18 Blood Pressure 100/51 L 117/60 Pulse Oximetry 98 99 98 04/30/20 23:00 04/30/20 23:29 05/01/20 00:00 Temperature 36.6 C Pulse Rate 85 79 84 Respiratory Rate 18 15 17 Blood Pressure 124/64 128/64 Pulse Oximetry 99 98 99 05/01/20 01:31 05/01/20 01:38 05/01/20 02:00 Temperature Pulse Rate 86 84 74 Respiratory Rate 17 15 Blood Pressure 117/53 L Pulse Oximetry 99 98 05/01/20 02:01 05/01/20 03:34 05/01/20 04:00 Temperature 36.6 C Pulse Rate 84 72 86 Respiratory Rate 16 14 18 Blood Pressure 108/52 L Pulse Oximetry 98 97 05/01/20 04:22 05/01/20 05:55 05/01/20 06:00 Temperature Pulse Rate 84 87 85 Respiratory Rate 16 Blood Pressure 118/55 L Pulse Oximetry 98 97 05/01/20 08:00 05/01/20 08:55 05/01/20 10:00 Temperature 36.9 C Pulse Rate 74 81 83 Respiratory Rate 14 16 15 Blood Pressure 103/51 L 110/53 L Pulse Oximetry 97 96 96 05/01/20 10:05 05/01/20 10:09 05/01/20 10:15 Temperature 36.6 C Pulse Rate 76 70 71 Respiratory Rate 15 Blood Pressure 110/53 L 109/53 L 91/46 L Pulse Oximetry 98 05/01/20 10:30 05/01/20 10:45 05/01/20 11:00 Temperature Pulse Rate 74 72 72 Respiratory Rate Blood Pressure 97/46 L 90/44 L 97/45 L Pulse Oximetry 05/01/20 11:15 05/01/20 11:30 05/01/20 11:45 Temperature Pulse Rate 70 78
--- NOTE | 2020-05-01 16:54 | PM.PNNEP ---
Progress Note: A&P Assessment and Plan (1) CKD (chronic kidney disease), stage V: Code(s): N18.5 - Chronic kidney disease, stage 5 Status: Acute Assessment and Plan: The patient has chronic kidney disease. This is due to diabetes, hypertension, and vascular disease. (2) BARRON (acute kidney injury): Code(s): N17.9 - Acute kidney failure, unspecified Status: Acute Assessment and Plan: The patient has acute kidney injury. Getting dialysis to try to remove fluid so she can get off the ventilator. She had a dry ultrafiltration yesterday. Will do full dialysis today. Try to remove fluid as tolerated. Use low temperature bath and albumin for blood pressure support. (3) Suspected COVID-19 virus infection: Code(s): Z20.828 - Contact with and (suspected) exposure to other viral communicable diseases Status: Acute Assessment and Plan: Because of the pneumonia and severity of her illness she is getting a COVID-19 test. This is negative. (4) Encephalopathy: Code(s): G93.40 - Encephalopathy, unspecified Status: Acute Assessment and Plan: sedated. (5) Sepsis: Code(s): A41.9 - Sepsis, unspecified organism Status: Deleted Assessment and Plan: The patient seems to have septic syndrome. Urine culture is positive. blood negative. (6) Metabolic acidosis: Code(s): E87.2 - Acidosis Status: Acute Assessment and Plan: Bicarbonate level is improved off drip (7) Pneumonia: Code(s): J18.9 - Pneumonia, unspecified organism Status: Acute Assessment and Plan: The patient has evidence on chest x-ray. She is getting antibiotics. (8) Anemia: Code(s): D64.9 - Anemia, unspecified Status: Acute Assessment and Plan: She is anemic at baseline. On EPO 3 times a week. Very good reticulocyte count suggesting good response to EPO (9) Diabetes: Code(s): E11.9 - Type 2 diabetes mellitus without complications Status: Acute Assessment and Plan: She is currently on insulin sliding scale Subjective Date/time seen: 05/01/20 16:54 Interval history: Patient is sedated. On Vent. Off pressors. To get dialysis today. Review of Systems Review of Systems: ROS unobtainable: Yes unobtainable due to endotracheal tube Exam Narrative: Exam Narrative: WDWN in NAD skin no rash head ncat lungs mildly coarse at the bases cor reg no rub or gallop abd BS+ no tenderness and soft ext 1+ edema. Or cyanosis Objective Data Vital Signs Vital Signs: Vital Signs - 24 hr 04/30/20 17:02 04/30/20 18:00 04/30/20 18:01 Temperature 36.6 C Pulse Rate 82 90 97 Respiratory Rate 19 18 Blood Pressure 106/54 L 106/54 L Pulse Oximetry 95 96 98 04/30/20 18:16 04/30/20 18:19 04/30/20 18:30 Temperature Pulse Rate 88 88 97 Respiratory Rate Blood Pressure 102/49 L 114/52 L Pulse Oximetry 04/30/20 18:45 04/30/20 19:00 04/30/20 19:15 Temperature Pulse Rate 93 89 90 Respiratory Rate Blood Pressure 111/56 L 110/51 L 110/56 L Pulse Oximetry 04/30/20 19:19 04/30/20 19:23 04/30/20 19:30 Temperature 36.4 C L Pulse Rate 90 90 88 Respiratory Rate 16 Blood Pressure 118/56 L 118/56 L 113/58 L Pulse Oximetry 98 04/30/20 19:33 04/30/20 19:38 04/30/20 19:39 Temperature 36.4 C Pulse Rate 88 88 81 Respiratory Rate 17 19 Blood Pressure 102/53 L Pulse Oximetry 97 97 100 04/30/20 19:45 04/30/20 19:48 04/30/20 19:55 Temperature Pulse Rate 78 75 76 Respiratory Rate 14 14 Blood Pressure 99/51 L Pulse Oximetry 04/30/20 20:00 04/30/20 20:06 04/30/20 20:15 Temperature 36.6 C Pulse Rate 88 85 87 Respiratory Rate 18 18 Blood Pressure 111/57 L 111/57 L 113/56 L Pulse Oximetry 97 97 04/30/20 20:30 04/30/20 20:45 04/30/20 21:00 Temperature Pulse Rate 87 89 87 Respiratory Rate Blood
[2020-05-01 17:32] LABS: Appearance Pleural Fluid Hazy (Clear); Color Pleural Fluid Yellow (Colorless); Lymphocytes Pleural Fluid 31 %; Macrophages Pleural Fluid 3 %; Monocytes Pleural Fluid 11 %; Neutrophils Pleural Fluid 55 % (0-25); Nucleated Cell Pleural Fluid 314 /uL (0-1000); Pleural fluid source Pleural fluid; RBC Pleural Fluid 56 /uL (0-0)
--- NOTE | 2020-05-01 17:32 | CONS_ITS ---
DATE OF CONSULTATION: 05/01/2020 REASON FOR CONSULTATION: Positive sputum culture and lung infiltrates. HISTORY OF PRESENT ILLNESS: I was not notified of this consult until 1 hour ago. The patient is a 69-year-old female with chronic renal failure on dialysis. She cannot provide any history at this time. She was brought to the hospital 5 days ago with decreased level of consciousness and dyspnea. Intubation was not possible in the field, but was performed on arrival here. A triple-lumen catheter was placed in the right femoral vein, also on the same day. She has been given ceftriaxone and doxycycline, and vancomycin has been added. Her sputum cultures show gram-positive cocci and clusters, and consultation was requested. She did not require any surgical intervention while here, though she has had a pleural effusion, which will be sampled, if possible percutaneously. While here, the patient remains on mechanical ventilation as well as hemodialysis on a regular basis. Her hospital course otherwise has been complicated by pressor dependence, now resolved. Also metabolic acidosis also resolved. Elevated troponin, encephalopathy, hyperglycemia, SVT, anemia believed to be due to blood loss from gastritis. Abnormal liver function tests. HABITS: No tobacco. No alcohol to excess. PRESENT MEDICATIONS: List reviewed. She is on high doses of corticosteroids, but not as a replacement for chronic steroids. They are apparently being given as treatment for septic shock, which she is no longer pressor dependent. ALLERGIES: IV DYE. FAMILY HISTORY: Mostly positive and reviewed, not pertinent to her present illness. PAST MEDICAL HISTORY: AV fistula, right arm, aortic valve replacement, bioprosthetic, cataract extractions, CABG, and exploratory laparotomy. Findings are unknown. She carries diagnosis of type 2 diabetes mellitus, left shoulder fracture, osteoarthritis, ischemic cardiomyopathy, hyperlipidemia, hypertension, previous diverticulitis, COPD, stroke 2014, asthma. REVIEW OF SYSTEMS: As per record. 14-point review attempted, not obtainable from the patient due to sedation and intubated status. SOCIAL HISTORY: She is . Lives locally. Does not work outside the home. PHYSICAL EXAMINATION: GENERAL: This is an elderly female appears older than her actual age on dialysis. Currently, no respiratory distress. VITAL SIGNS: She had some mild hypothermia shortly after admission, now normal temperature is consistently, 104/81. No pressors. Pulse 72 and respirations on the ventilator 14, some 30% FiO2. SKIN: Warm and dry. No rashes. No ulcerations. She has scattered ecchymoses. NODES: No cervical adenopathy. EENT: Orally intubated. Orogastric tube. Conjunctivae are normal. Pupils equal, round. The oral exam is compromised by her endotracheal tube, but inspection is normal otherwise. NECK: Supple. No meningismus. No masses. CHEST: No indwelling vascular devices in the chest. LUNGS: Diminished breath sounds on the left, otherwise clear to auscultation and percussion. Breath sounds are vesicular. CARDIAC: Regular rate and rhythm with a soft S1, S2. No murmurs or gallops. Pulses are 1+ and equal. ABDOMEN: Obese, nontender. No masses. No organomegaly. She has a right femoral vein triple-lumen catheter without skin breakdown or erythema. EXTREMITIES: 2+ pitting and nonpitting edema over the hands as well as distal legs into the feet. She has a fistula and is presently accessed right proximal arm without skin breakdown or warmth. NEUROLOGIC: Sedated. Opens eyes to stimulus and does attempt to move her arms. LABORATORY DTA: Sputum culture is grown normal luisa and repeat is in process. Multiple blood cultures, no growth. Urine culture wit
[2020-05-01 17:37] LABS: Glucose Point of Care 147 (65-105)
--- NOTE | 2020-05-01 17:39 | P.PNIM_ITS ---
Progress Note: A&P Assessment and Plan (1) Acute respiratory failure: Qualifiers: Respiratory failure complication: hypoxia Qualified Code(s): J96.01 - Acute respiratory failure with hypoxia Code(s): J96.00 - Acute respiratory failure, unspecified whether with hypoxia or hypercapnia Status: Acute Assessment and Plan: 69-year-old female with history of coronary artery disease and chronic kidney disease stage 5 due to diabetes and hypertension, patient was found unresponsive at home EMS was called patient was and respiratory distress and attempt to intubation was unsuccessful patient was brought to emergency department on BiPAP still struggling patient was intubated and currently on vent. Continues to be on the ventilator. (2) Sepsis: Code(s): A41.9 - Sepsis, unspecified organism Status: Deleted Assessment and Plan: * On admission and supported by tachycardia, tachypnea, relative hypotension, and lactic acidosis. * COVID negative * See ID recommendations * Pt is on iv hydrocortisone (3) Pneumonia: Code(s): J18.9 - Pneumonia, unspecified organism Status: Acute Assessment and Plan: * Atelectasis versus pneumonia noted on chest CT. * Will empirically treat with azithromycin and rocephin switched to iv doxycycline and rocephin due to amiodarone * sputum and blood culture pending (4) Urinary tract infection: Code(s): N39.0 - Urinary tract infection, site not specified Status: Acute Assessment and Plan: * Urine culture is growing E coli pansensitive continue Rocephin (5) Metabolic acidosis: Code(s): E87.2 - Acidosis Status: Acute Assessment and Plan: * * Vent management is per the hand ii thermal cutter. * (6) Acute kidney injury superimposed on chronic kidney disease: Code(s): N17.9 - Acute kidney failure, unspecified; N18.9 - Chronic kidney disease, unspecified Status: Acute Assessment and Plan: * Likely multifactorial in etiology to include to include possible ATN from sepsis, hypovolemia due to anemia +/- 3rd spacing. Initiation of dialysis, Nephrology consulted * May need dialysis creat is 4.2. (7) Type 2 diabetes mellitus: Code(s): E11.9 - Type 2 diabetes mellitus without complications Status: Acute Assessment and Plan: * Initiate sliding scale insulin, Accu-Cheks, and hypoglycemic protocol. (8) Congestive heart failure: Onset Date: ~12/2019 Code(s): I50.9 - Heart failure, unspecified Status: Acute Assessment and Plan: * Patient with mixed systolic and diastolic congestive heart failure. * Ischemic cardiomyopathy with improved ejection fraction to 50 to 55% on echo in December 2019. * Pt had some atrial tachycardia was placed on amiodarone drip. (9) Acute on chronic anemia: Code(s): D64.9 - Anemia, unspecified Status: Acute Assessment and Plan: * Check stool for occult blood. Subjective Date/time seen: 05/01/20 17:39 Daniel
--- NOTE | 2020-05-01 17:39 | PM.IMPN ---
Progress Note: A&P Assessment and Plan (1) Acute respiratory failure: Qualifiers: Respiratory failure complication: hypoxia Qualified Code(s): J96.01 - Acute respiratory failure with hypoxia Code(s): J96.00 - Acute respiratory failure, unspecified whether with hypoxia or hypercapnia Status: Acute Assessment and Plan: 69-year-old female with history of coronary artery disease and chronic kidney disease stage 5 due to diabetes and hypertension, patient was found unresponsive at home EMS was called patient was and respiratory distress and attempt to intubation was unsuccessful patient was brought to emergency department on BiPAP still struggling patient was intubated and currently on vent. Continues to be on the ventilator. (2) Sepsis: Code(s): A41.9 - Sepsis, unspecified organism Status: Deleted Assessment and Plan: On admission and supported by tachycardia, tachypnea, relative hypotension, and lactic acidosis. COVID negative See ID recommendations Pt is on iv hydrocortisone (3) Pneumonia: Code(s): J18.9 - Pneumonia, unspecified organism Status: Acute Assessment and Plan: Atelectasis versus pneumonia noted on chest CT. Will empirically treat with azithromycin and rocephin switched to iv doxycycline and rocephin due to amiodarone sputum and blood culture pending (4) Urinary tract infection: Code(s): N39.0 - Urinary tract infection, site not specified Status: Acute Assessment and Plan: Urine culture is growing E coli pansensitive continue Rocephin (5) Metabolic acidosis: Code(s): E87.2 - Acidosis Status: Acute Assessment and Plan: Vent management is per the rustic fence builder. (6) Acute kidney injury superimposed on chronic kidney disease: Code(s): N17.9 - Acute kidney failure, unspecified; N18.9 - Chronic kidney disease, unspecified Status: Acute Assessment and Plan: Likely multifactorial in etiology to include to include possible ATN from sepsis, hypovolemia due to anemia +/- 3rd spacing. Initiation of dialysis, Nephrology consulted May need dialysis creat is 4.2. (7) Type 2 diabetes mellitus: Code(s): E11.9 - Type 2 diabetes mellitus without complications Status: Acute Assessment and Plan: Initiate sliding scale insulin, Accu-Cheks, and hypoglycemic protocol. (8) Congestive heart failure: Onset Date: ~12/2019 Code(s): I50.9 - Heart failure, unspecified Status: Acute Assessment and Plan: Patient with mixed systolic and diastolic congestive heart failure. Ischemic cardiomyopathy with improved ejection fraction to 50 to 55% on echo in December 2019. Pt had some atrial tachycardia was placed on amiodarone drip. (9) Acute on chronic anemia: Code(s): D64.9 - Anemia, unspecified Status: Acute Assessment and Plan: Check stool for occult blood. Subjective Date/time seen: 05/01/20 17:39 Interval history: Pt is in icu on ventilator, awaiting covid test. pt has history of coronary artery disease status post three-vessel CABG, aortic stenosis status post bioprosthetic aortic valve replacement, chronic kidney disease narrowing dialysis with maturing right upper extremity fistula, hypertension, chronic anemia, and type 2 diabetes mellitus. Covid is negative. ICU attending, ID and nephrology on the case. Pt receiving dialysis, pt had thoracentesis of pleural effu
[2020-05-01 20:03] LABS: Glucose Point of Care 150 (65-105)
[2020-05-01 23:58] LABS: Glucose Point of Care 168 (65-105)
[2020-05-02] VITALS (44 sets, daily range): BP systolic 85–116; BP diastolic 47–79; PULSE 67–89; RESP 10–21; TEMP 36.2–37.1; O2SAT 96–100
[2020-05-02] MEDS: IPRATROPIUM BR 0.02% INH SOLN 0.5 MG/2.5 ML VIAL INHALATION ×4 (02:36→20:18)
[2020-05-02] MEDS: LEVALBUTEROL NEB 1.25 MG/3 ML 0.63 MG INHALATION ×4 (02:37→20:18)
[2020-05-02 04:08] LABS: Glucose Point of Care 207 (65-105)
[2020-05-02 04:15] LABS: Hematocrit 24.2 % (37.0-47.0); Hemoglobin 7.5 g/dL (12.0-15.0); Mean Corpuscular Hemoglobin 28.6 pg (26-34); Mean Corpuscular Volume 92.4 fl (80-100); Mean Platelet Volume 11.1 fl (7.4-10.4); Platelet Count Result 184 k/mm3 (150-375); Red Blood Count 2.62 M/mm3 (4.2-5.4); Red Cell Distribution Width 18.8 % (11.5-14.5); White Blood Count 27.3 K/mm3 (4.5-10.0)
[2020-05-02 04:35] LABS: Albumin Level 3.3 g/dL (3.5-5.1); Blood Urea Nitrogen 41 mg/dL (7-17); Calcium 7.3 mg/dL (8.4-10.2); Carbon Dioxide 30 mmol/L (22-30); Chloride 92 mmol/L (98-107); Estimated CRCL calculation 22 ml/min; Estimated Glomerular Filt Rate 18; Glucose 186 mg/dL (65-105); Magnesium 1.8 mg/dL (1.6-2.3); Potassium 3.6 mmol/L (3.4-5.0); Sodium 132 mmol/L (137-145)
[2020-05-02 04:39] LABS: Alveolar/Arterial O2 Gradient 97.6 mmHg; Base Excess ABG 6.5 mEq/l (+/-2.0); Carboxyhemoglobin 0.3 % THb (0-2.0); Fractional Inspired Oxygen 30 %; HCO3 ABG 29.7 mEq/l (22.0-26.0); Methemoglobin ABG 0.1 %THb (0-1.5); Oxygen Content ABG 11.1 %vol (16.0-22.0); Oxygen Saturation ABG 96.2 % (95.0-100.0); Oxyhemoglobin 93.8 % THb (90.0-100.0); PCO2 ABG 36.4 mmHg (35.0-45.0); PO2 ABG 73.5 mmHg (80.0-100.0); PO2 FiO2 Ratio Arterial Blood 2.45 %; Reduced Hemoglobin 5.8 %THb (0-5.0); Total Hemoglobin 8.3 g/dL (12.0-18.0)
[2020-05-02 04:44] LABS: pH ABG 7.529 (7.350-7.450)
[2020-05-02 04:45] LABS: Site Drawn LEFT RADIAL
[2020-05-02 04:46] LABS: Device VENTILATOR; Modified Allen's Test Pass
[2020-05-02 04:47] LABS: Arterial Blood Gas PEEP 5 cmH2O; Arterial Blood Gas Tidal Volume 420 ml; Arterial Blood Gas Vent Mode CMV; Arterial Blood Gas Ventilator rate 14 /MIN
[2020-05-02] MEDS: INSULIN ASPART (*BKC) 100 UNITS/ML SUB-Q (04:50)
[2020-05-02] MEDS: HYDROCORTISONE SODIUM SUCCINATE 100 MG/2 ML VIAL 50 MG IV PUSH ×2 (05:50→17:21)
[2020-05-02] MEDS: CALCIUM ACETATE 667 MG TABLET FEED TUBE ×3 (07:39→16:19)
[2020-05-02] MEDS: ASPIRIN 325 MG TABLET FEED TUBE (07:39)
[2020-05-02] MEDS: PANTOPRAZOLE SODIUM IV 40 MG VIAL IV PUSH ×2 (07:39→20:04)
[2020-05-02] MEDS: TOLNAFTATE 1% POWDER 45 GM BTL 1 APPLIC TOPICAL ×2 (07:39→20:01)
[2020-05-02] MEDS: ATORVASTATIN 20 MG TABLET FEED TUBE (07:39)
[2020-05-02] MEDS: HEPARIN SODIUM 5,000 UNITS/ML VIAL 5000 UNITS SUB-Q ×2 (07:40→20:04)
[2020-05-02] MEDS: MIDODRINE HCL 10 MG TABLET FEED TUBE ×3 (07:40→16:19)
[2020-05-02] MEDS: INSULIN GLARGINE (*BKC) 100 UNITS/ML 32 UNITS SUB-Q (07:43)
[2020-05-02 08:01] LABS: Glucose Point of Care 146 (65-105)
--- NOTE | 2020-05-02 09:28 | WPDINTPN ---
Progress Note: A&P Assessment and Plan (1) Acute respiratory failure: Qualifiers: Respiratory failure complication: hypoxia Qualified Code(s): J96.01 - Acute respiratory failure with hypoxia Code(s): J96.00 - Acute respiratory failure, unspecified whether with hypoxia or hypercapnia Status: Acute Assessment and Plan: Acute Respiratory failure secondary to pneumonia, encephalopathy, baseline COPD. She was intubated on 04/26. Continue full mechanical ventilation support to prevent hypoxemia/hypercarbia and end organ damage. ABG reviewed. FiO2 of 30% and peep of 5. Chest x-ray reviewed. She has bilateral airspace disease with bilateral pleural effusion more on the right side. Low tidal volume ventilation strategy to prevent volutrauma Bronchodilators. Steroids not indicated. She underwent a right-sided thoracentesis yesterday with 1 L of fluid taken off. Chest x-ray with muscular region bilaterally today. Sedation vacation trial on the daily basis. She is currently on fentanyl only and not more awake. She was placed on spontaneous breathing trial today with pressure of 10/5 and has been tolerating it so far. She is being dialyzed today. Will hold off evaluation for extubation but when she is off dialysis then she will be placed on pressure support ventilation of 5/5 and an ABG was performed after 30-45 minutes. If she does well with acceptable ABG then in a time of extubation will be made. She is still very drowsy and sedated. She is off sedatives completely from today in the morning. She is getting hypopnea and not getting adequate tidal volume though she is following some of the commands intermittently. She will be placed on ASV overnight. Nurses has been instructed not to give her any sedatives and will be placed on SBT trial tomorrow morning in an effort to extubate her if she is more awake. Chest CT 04/26/2020 IMPRESSION: 1. Bilateral lower lobe and right middle lobe airspace disease, atelectasis versus pneumonia. 2: Bilateral pleural effusions. 3: Cardiomegaly with atherosclerosis. 4: Right paratracheal lymphadenopathy, likely reactive. 5: 3 mm left apical nodule, likely benign. Consider follow-up CT chest in 12 months. (2) Septic shock: Code(s): A41.9 - Sepsis, unspecified organism; R65.21 - Severe sepsis with septic shock Status: Acute Assessment and Plan: Secondary to pneumonia and UTI. 04/26/2020 blood cultures negative x2, urine cultures growing gram-positive cocci in clusters, started patient on vancomycin on 04/30/2020 04/26/2020 Urine culture is growing E coli, pansensitive, continue ceftriaxone Azithromycin was switched to doxycycline as patient was placed on amiodarone Legionnaire antigen is negative as well. Pneumococcal antigen not detected Off vasopressin, continue Levophed. Continue titration to maintain map of > 65 mmHg Patient is off IV fluids. She has been weaned off from pressors. I will further wean steroid and potentially stop tomorrow. Midodrine has been added because of inability to wean pressors. Will continue it for now. (3) Suspected COVID-19 virus infection: Code(s): Z20.828 - Contact with and (suspected) exposure to other viral communicable diseases Status: Acute Assessment and Plan: COVID-19 suspected. SARS-CoV-2 PCR - NEGATIVE Airborne, Droplet and Contact Isolation WAS DISCONTINUED (4) Pneumonia: Code(s): J18.9 - Pneumonia, unspecified organism Status: Acute Assessment and Plan: Sputum cultures from 04/26/2020 grew normal respiratory luisa. Started on vancomycin on 04/30/2020 for concern of gram-positive cocci on the sputum. I think we can deescalate antibiotics. May potentially stop vancomycin if analysis of pleural fluid is negative for any signs of infection. She will complete doxycycline today. I will continue ceftriaxone for total of 7 days. Repeat procalcitonin has been pending. Infectious
--- NOTE | 2020-05-02 09:35 | PM.PNCARD ---
Progress Note: A&P Assessment and Plan (1) Elevated troponin: Code(s): R79.89 - Other specified abnormal findings of blood chemistry Status: Acute Assessment and Plan: -Multifactorial etiology, peaked at 1.3. Most likely demand ischemia with known underlying CAD, acute on chronic renal failure, hypotension/septic shock on pressor support. COVID-19 negative. Doubt ACS. Conservative therapy at this time, -LV systolic dysfunction as above, new cardiomyopathy, worse than a few months ago. -Dialysis for volume removal -BP too low to address w/ CHF meds -Echo 04/30/2020:Mild LV enlargement, severe LVH, severe LV systolic dysfunction, ejection fraction 25-30%; abnormal diastolic function. Abnormal G LS helpdesk manager at-5.6. Mild RV enlargement. Systolic and diastolic ventricular septal flattening consistent with elevated RV pressure and volume. Mild left atrial enlargement. moderate mitral regurgitation. Moderate prosthetic valve aortic stenosis, v max 2.8 m/sec, peak gradient 32, mean gradient 16 mmHg, DVI 0.39, JUAN M 1 cm2. Moderate to severe tricuspid regurgitation, moderate pulmonary hypertension, RVSP 53 mmHg. When compared to echocardiogram from 01/12/2020 LV systolic function is much worse. (2) Coronary artery disease involving [place] coronary artery of [place] heart: Qualifiers: Associated angina: without angina Qualified Code(s): I25.10 - Atherosclerotic heart disease of [place] coronary artery without angina pectoris Code(s): I25.10 - Atherosclerotic heart disease of [place] coronary artery without angina pectoris Status: Acute Assessment and Plan: As above, continue medical therapy aspirin, statin. Did not tolerate beta-mamie therapy 04/27/2020. (3) History of aortic valve replacement with bioprosthetic valve: Code(s): Z95.3 - Presence of xenogenic heart valve Status: Acute Assessment and Plan: Mild to moderate prosthetic stenosis on echo this admission. (4) Acute respiratory failure: Qualifiers: Respiratory failure complication: hypoxia Qualified Code(s): J96.01 - Acute respiratory failure with hypoxia Code(s): J96.00 - Acute respiratory failure, unspecified whether with hypoxia or hypercapnia Status: Acute Assessment and Plan: Pneumonia management per Critical Care Service and Dr. Saini. Weaning ventilatory support as able; hopefully the thoracentesis and further dialysis will help. Mental status improving. COVID-19 negative. (5) Septic shock: Code(s): A41.9 - Sepsis, unspecified organism; R65.21 - Severe sepsis with septic shock Status: Acute Assessment and Plan: Pressors have been weaned off. Continue antibiotics and supportive care. (6) Acute kidney injury superimposed on chronic kidney disease: Code(s): N17.9 - Acute kidney failure, unspecified; N18.9 - Chronic kidney disease, unspecified Status: Acute Assessment and Plan: Volume overload 2nd CKD and possibly some CHF. Hemodialysis initiated. Appreciate Nephrology involvement. (7) Pneumonia: Code(s): J18.9 - Pneumonia, unspecified organism Status: Acute Assessment and Plan: As above. Per Critical Care Service. (8) LBBB (left bundle branch block): Code(s): I44.7 - Left bundle-branch block, unspecified Status: Acute Assessment and Plan: Chronic. (9) Atrial tachycardia: Code(s): I47.1 - Supraventricular tachycardia Status: Acute Assessment and Plan: Remains in sinus rhythm. Amiodorone drip stopped (started 04/28) Subjective Date/time seen: 05/02/20 09:35 Interval history: Follow-up for: Elevated troponin, history
--- NOTE | 2020-05-02 10:32 | WPDGIPROGNO ---
Progress Note: A&P Additional Plan Patient remains intubated in the ICU. Unable to give history. No significant change in status today. Physical exam reveals patient to be ventilated. Lungs reveal a few rhonchi. Heart without murmur. Abdomen is obese soft and nontender. No organomegaly appreciated. Labs reveal WBC 27 K. Hemoglobin 7.5, hematocrit 24.2 MCV 92 which is stable. BUN 41, creatinine 2.6. A total bilirubin 0.3, AST 57, ALT 123, alk-phos 281. Impression 1. Anemia likely multifactorial. No significant GI bleeding appreciated. Plan is to keep on proton pump inhibitor for presumed stress gastritis. 2. Occult blood in stool. No significant obvious bleeding appreciated. Could easily be explained by stress gastritis. Will continue to monitor. 3. Elevated LFTs. At this time stable. Attribute this to sepsis. Will continue to monitor and follow conservatively at this point. Four. Respiratory failure. Underlying pneumonia. Patient remains on the ventilator. ICU management. Subjective Date/time seen: 05/02/20 10:32 Objective Data Vital Signs Vital Signs: Vital Signs - 24 hr 05/01/20 10:45 05/01/20 11:00 05/01/20 11:15 Temperature Pulse Rate 72 72 70 Respiratory Rate Blood Pressure 90/44 L 97/45 L 109/48 L Pulse Oximetry 05/01/20 11:30 05/01/20 11:35 05/01/20 11:45 Temperature Pulse Rate 78 80 64 Respiratory Rate Blood Pressure 103/51 L 102/47 L Pulse Oximetry 97 05/01/20 12:00 05/01/20 12:15 05/01/20 12:30 Temperature 36.6 C Pulse Rate 74 74 76 Respiratory Rate 14 Blood Pressure 94/53 L 98/48 L 94/53 L Pulse Oximetry 95 05/01/20 12:45 05/01/20 13:00 05/01/20 13:15 Temperature Pulse Rate 72 71 72 Respiratory Rate Blood Pressure 104/48 L 103/49 L 106/49 L Pulse Oximetry 05/01/20 13:30 05/01/20 13:40 05/01/20 13:45 Temperature 36.7 C Pulse Rate 72 74 74 Respiratory Rate 14 Blood Pressure 104/50 L 107/49 L 107/49 L Pulse Oximetry 95 05/01/20 14:00 05/01/20 14:40 05/01/20 15:27 Temperature Pulse Rate 79 78 86 Respiratory Rate 14 16 Blood Pressure 99/48 L 106/51 L Pulse Oximetry 94 96 90 05/01/20 15:28 05/01/20 16:00 05/01/20 17:42 Temperature 36.9 C Pulse Rate 90 87 82 Respiratory Rate 14 14 Blood Pressure 97/62 L 121/61 Pulse Oximetry 100 99 97 05/01/20 18:00 05/01/20 20:00 05/01/20 20:30 Temperature 36.8 C Pulse Rate 85 82 83 Respiratory Rate 14 14 Blood Pressure 115/61 100/59 L Pulse Oximetry 96 96 97 05/01/20 22:00 05/01/20 22:27 05/01/20 22:36 Temperature Pulse Rate 81 83 82 Respiratory Rate 14 14 14 Blood Pressure 118/47 L Pulse Oximetry 97 05/01/20 23:10 05/02/20 00:00 05/02/20 01:50 Temperature 37.1 C Pulse Rate 88 84 87 Respiratory Rate 14 Blood Pressure 114/52 L Pulse Oximetry 96 96 96 05/02/20 02:00 05/02/20 02:37 05/02/20 02:44 Temperature Pulse Rate 84 84 89 Respiratory Rate 14 14 15 Blood Pressure 115/52 L Pulse Oximetry 96 05/02/20 04:00 05/02/20 04:33 05/02/20 06:00 Temperature 37.0 C Pulse Rate 84 83 78 Respiratory Rate 14 14 Blood Pressure 106/50 L 99/48 L Pulse Oximetry 96 97 98 05/02/20 07:44 05/02/20 08:00 05/02/20 08:05 Temperature 36.4 C L Pulse Rate 76 79 78 Respiratory Rate 12 11 L Blood Pressure 105/55 L Pulse Oximetry 98 99 05/02/20 08:27 05/02/20 08:55 05/02/20 08:58 Temperature 36.4 C L Pulse Rate 76 74 72 Respiratory Rate 15 10 L Blood Pressure 110/57 L 110/55 L Pulse Oximetry 99 05/02/20 09:07 05/02/20 09:15 05/02/20 09:30 Temperature Pulse Rate 75 73 75 Respiratory Rate Blood Pressure 106/53 L 104/52 L 96/53 L Pulse Oximetry 05/02/20 09:45 05/02/20 10:00 05/02/20 10:15 Temperature Pulse Rate 76 77 71 Respiratory Rate 10 L Blood Pressure 97/54 L 104/51 L 100/50 L Pulse Oximetry 98 05/02/20 10:30 Temperature Pulse Rate 73 Respiratory Rate Blood Pre
--- NOTE | 2020-05-02 11:06 | PCDIET ---
ICU Rounding Note: Tube feedings on hold for SBT. Previously tolerating well without reported issues. MD plans to resume tube feedings if unable to extubate. Last recorded weight is 85.8kg which is down from last review. -I/O. Bowel Motility: BM x 2 on 04/29/20. Labs Reviewed: Hgb (7.5), Hct (24.2), Glu (186), BUN (41), Cr (2.6), Na (132), Alb (3.3), Jennifer Ca (7.86) Meds Noted: Albumin, Albuterol, Phoslo, Doxycycline, Midodrine, Atrovent, Protonix, Fentanyl, Epogen, Heparin, Solu Cortef, Novolog, Lantus Additional Notes: No change in skin documented. Patient receiving dialysis during rounds. Following daily in ICU rounds. Assessing/reassessing every Wednesday/Wednesday.
[2020-05-02] MEDS: EPOETIN ALFA 10,000 UNITS/ML VIAL 10000 UNITS IV PUSH (11:08)
[2020-05-02 12:17] LABS: Glucose Point of Care 113 (65-105)
--- NOTE | 2020-05-02 12:38 | PM.PNNEP ---
Progress Note: A&P Assessment and Plan (1) CKD (chronic kidney disease), stage V: Code(s): N18.5 - Chronic kidney disease, stage 5 Status: Acute Assessment and Plan: The patient has chronic kidney disease. This is due to diabetes, hypertension, and vascular disease. (2) BARRON (acute kidney injury): Code(s): N17.9 - Acute kidney failure, unspecified Status: Acute Assessment and Plan: The patient has acute kidney injury. DUF today and HD tomorrow. (3) Suspected COVID-19 virus infection: Code(s): Z20.828 - Contact with and (suspected) exposure to other viral communicable diseases Status: Acute Assessment and Plan: Because of the pneumonia and severity of her illness she is getting a COVID-19 test. This is negative. (4) Encephalopathy: Code(s): G93.40 - Encephalopathy, unspecified Status: Acute Assessment and Plan: sedated. (5) Sepsis: Code(s): A41.9 - Sepsis, unspecified organism Status: Deleted Assessment and Plan: The patient seems to have septic syndrome. Urine culture is positive. blood negative. (6) Metabolic acidosis: Code(s): E87.2 - Acidosis Status: Acute Assessment and Plan: improved (7) Pneumonia: Code(s): J18.9 - Pneumonia, unspecified organism Status: Acute Assessment and Plan: The patient has evidence on chest x-ray. She is getting antibiotics. (8) Anemia: Code(s): D64.9 - Anemia, unspecified Status: Acute Assessment and Plan: She is anemic at baseline. On EPO 3 times a week. Very good reticulocyte count suggesting good response to EPO (9) Diabetes: Code(s): E11.9 - Type 2 diabetes mellitus without complications Status: Acute Assessment and Plan: She is currently on insulin sliding scale Subjective Date/time seen: 05/02/20 12:38 Interval history: Patient is sedated. On Vent. Off pressors. bp seems a bit better. ON Dry ultrafiltration, ofelia it well. seen at 12:00 noon. bp 89 now but this is the lowest it has been since starting. should get about 3 L off Review of Systems Review of Systems: ROS unobtainable: Yes unobtainable due to endotracheal tube Exam Narrative: Exam Narrative: WDWN in NAD skin no rash or sq nodules head ncat lungs mildly coarse at the bases cor reg no rub or gallop abd BS+ no tenderness and soft ext 1+ edema. Or cyanosis Objective Data Vital Signs Vital Signs: Vital Signs - 24 hr 05/01/20 12:45 05/01/20 13:00 05/01/20 13:15 Temperature Pulse Rate 72 71 72 Respiratory Rate Blood Pressure 104/48 L 103/49 L 106/49 L Pulse Oximetry 05/01/20 13:30 05/01/20 13:40 05/01/20 13:45 Temperature 36.7 C Pulse Rate 72 74 74 Respiratory Rate 14 Blood Pressure 104/50 L 107/49 L 107/49 L Pulse Oximetry 95 05/01/20 14:00 05/01/20 14:40 05/01/20 15:27 Temperature Pulse Rate 79 78 86 Respiratory Rate 14 16 Blood Pressure 99/48 L 106/51 L Pulse Oximetry 94 96 90 05/01/20 15:28 05/01/20 16:00 05/01/20 17:42 Temperature 36.9 C Pulse Rate 90 87 82 Respiratory Rate 14 14 Blood Pressure 97/62 L 121/61 Pulse Oximetry 100 99 97 05/01/20 18:00 05/01/20 20:00 05/01/20 20:30 Temperature 36.8 C Pulse Rate 85 82 83 Respiratory Rate 14 14 Blood Pressure 115/61 100/59 L Pulse Oximetry 96 96 97 05/01/20 22:00 05/01/20 22:27 05/01/20 22:36 Temperature Pulse Rate 81 83 82 Respiratory Rate 14 14 14 Blood Pressure 118/47 L Pulse Oximetry 97 05/01/20 23:10 05/02/20 00:00 05/02/20 01:50 Temperature 37.1 C Pulse Rate 88 84 87 Respiratory Rate 14 Blood Pressure 114/52 L Pulse Oximetry 96 96 96 05/02/20 02:00 05/02/20 02:37 05/02/20 02:44 Temperature Pulse Rate 84 84 89 Respiratory Rate 14 14 15 Blood Pressure 115/52 L Pulse Oximetry 96 05/02/20 04:00 05/02/20 04:33
--- NOTE | 2020-05-02 13:21 | WPDINFPN2 ---
Progress Note: A&P Assessment and Plan (1) Pneumonia: Code(s): J18.9 - Pneumonia, unspecified organism Status: Acute Assessment and Plan: 1. Lung infiltrates, due to CAP and CHF, stable 2. Bioprosthetic AVR 3. CRF on HD 4. Leukocytosis, multifactorial, largely due to steroid Rx, down 2 points today 5. Pleural effusion, info so far indicates no infection REC Ctx and Doxy #6. PCT is pending. Keep steroid to the minimum required. The R femoral TLC will be removed today per RN. Subjective Date/time seen: 05/02/20 13:21 Interval history: sedated just finished HD no pressors Exam Narrative: Exam Narrative: afebrile Const: General: no acute distress Resp: Effort & Inspection: normal respiratory effort Auscultation: clear to auscultation bilaterally and diminished lung sounds Cardio: Rate: regular rate Rhythm: regular rhythm Heart sounds: no murmurs GI: Inspection: non-distended GI Palp: Yes Soft to palpation and No Tenderness to palpation present (GI) Urinary Catheter: Urinary Catheter: patent and draining and urine clear Skin: General skin exam: normal color Extrem: General: edema Objective Data Vital Signs Vital Signs: Vital Signs - 24 hr 05/01/20 13:30 05/01/20 13:40 05/01/20 13:45 Temperature 36.7 C Pulse Rate 72 74 74 Respiratory Rate 14 Blood Pressure 104/50 L 107/49 L 107/49 L Pulse Oximetry 95 05/01/20 14:00 05/01/20 14:40 05/01/20 15:27 Temperature Pulse Rate 79 78 86 Respiratory Rate 14 16 Blood Pressure 99/48 L 106/51 L Pulse Oximetry 94 96 90 05/01/20 15:28 05/01/20 16:00 05/01/20 17:42 Temperature 36.9 C Pulse Rate 90 87 82 Respiratory Rate 14 14 Blood Pressure 97/62 L 121/61 Pulse Oximetry 100 99 97 05/01/20 18:00 05/01/20 20:00 05/01/20 20:30 Temperature 36.8 C Pulse Rate 85 82 83 Respiratory Rate 14 14 Blood Pressure 115/61 100/59 L Pulse Oximetry 96 96 97 05/01/20 22:00 05/01/20 22:27 05/01/20 22:36 Temperature Pulse Rate 81 83 82 Respiratory Rate 14 14 14 Blood Pressure 118/47 L Pulse Oximetry 97 05/01/20 23:10 05/02/20 00:00 05/02/20 01:50 Temperature 37.1 C Pulse Rate 88 84 87 Respiratory Rate 14 Blood Pressure 114/52 L Pulse Oximetry 96 96 96 05/02/20 02:00 05/02/20 02:37 05/02/20 02:44 Temperature Pulse Rate 84 84 89 Respiratory Rate 14 14 15 Blood Pressure 115/52 L Pulse Oximetry 96 05/02/20 04:00 05/02/20 04:33 05/02/20 06:00 Temperature 37.0 C Pulse Rate 84 83 78 Respiratory Rate 14 14 Blood Pressure 106/50 L 99/48 L Pulse Oximetry 96 97 98 05/02/20 07:44 05/02/20 08:00 05/02/20 08:05 Temperature 36.4 C L Pulse Rate 76 79 78 Respiratory Rate 12 11 L Blood Pressure 105/55 L Pulse Oximetry 98 99 05/02/20 08:27 05/02/20 08:55 05/02/20 08:58 Temperature 36.4 C L Pulse Rate 76 74 72 Respiratory Rate 15 10 L Blood Pressure 110/57 L 110/55 L Pulse Oximetry 99 05/02/20 09:07 05/02/20 09:15 05/02/20 09:30 Temperature Pulse Rate 75 73 75 Respiratory Rate Blood Pressure 106/53 L 104/52 L 96/53 L Pulse Oximetry 05/02/20 09:45 05/02/20 10:00 05/02/20 10:15 Temperature Pulse Rate 76 77 71 Respiratory Rate 10 L Blood Pressure 97/54 L 104/51 L 100/50 L Pulse Oximetry 98 05/02/20 10:30 05/02/20 10:32 05/02/20 10:45 Temperature Pulse Rate 73 71 74 Respiratory Rate Blood Pressure 96/53 L 97/53 L Pulse Oximetry 99 05/02/20 11:00 05/02/20 11:15 05/02/20 11:30 Temperature Pulse Rate 72 77 70 Respiratory Rate Blood Pressure 91/51 L 92/51 L 99/54 L Pulse Oximetry 05/02/20 11:45 05/02/20 11:48 05/02/20 11:58 Temperature Pulse Rate 73 71 71 Respiratory Rate Blood Pressure 85/54 L 94/54 L 89/49 L Pulse Oximetry 05/02/20 12:00 05/02/20 12:20 Temperature 36.2 C L 36.2 C L Pulse Rate 71 73 Respiratory Rate 14 18 Blood Pressure 101/58 L 101/58 L Pulse Oximetry 100 100 In
[2020-05-02 16:00] LABS: Glucose Point of Care 72 (65-105)
--- NOTE | 2020-05-02 17:14 | P.PNIM_ITS ---
Progress Note: A&P Assessment and Plan (1) Acute respiratory failure: Qualifiers: Respiratory failure complication: hypoxia Qualified Code(s): J96.01 - Acute respiratory failure with hypoxia Code(s): J96.00 - Acute respiratory failure, unspecified whether with hypoxia or hypercapnia Status: Acute Assessment and Plan: 69-year-old female with history of coronary artery disease and chronic kidney disease stage 5 due to diabetes and hypertension, patient was found unresponsive at home EMS was called patient was and respiratory distress and attempt to intubation was unsuccessful patient was brought to emergency department on BiPAP still struggling patient was intubated and currently on vent. Continues to be on the ventilator. (2) Sepsis: Code(s): A41.9 - Sepsis, unspecified organism Status: Deleted Assessment and Plan: * On admission and supported by tachycardia, tachypnea, relative hypotension, and lactic acidosis. * COVID negative * See ID recommendations * Pt is on iv hydrocortisone (3) Pneumonia: Code(s): J18.9 - Pneumonia, unspecified organism Status: Acute Assessment and Plan: * Atelectasis versus pneumonia noted on chest CT. * Will empirically treat with azithromycin and rocephin switched to iv doxycycline and rocephin due to amiodarone * sputum and blood culture pending * pt had thoracentesis for pleural effusion (4) Urinary tract infection: Code(s): N39.0 - Urinary tract infection, site not specified Status: Acute Assessment and Plan: * Urine culture is growing E coli pansensitive continue Rocephin (5) Metabolic acidosis: Code(s): E87.2 - Acidosis Status: Acute Assessment and Plan: * * Vent management is per the legal administrative secretary. * (6) Acute kidney injury superimposed on chronic kidney disease: Code(s): N17.9 - Acute kidney failure, unspecified; N18.9 - Chronic kidney disease, unspecified Status: Acute Assessment and Plan: * Likely multifactorial in etiology to include to include possible ATN from sepsis, hypovolemia due to anemia +/- 3rd spacing. Pt has been on dialysis since wednesday. * May need dialysis creat is 4.2. (7) Type 2 diabetes mellitus: Code(s): E11.9 - Type 2 diabetes mellitus without complications Status: Acute Assessment and Plan: * Initiate sliding scale insulin, Accu-Cheks, and hypoglycemic protocol. (8) Congestive heart failure: Onset Date: ~12/2019 Code(s): I50.9 - Heart failure, unspecified Status: Acute Assessment and Plan: * Patient with mixed systolic and diastolic congestive heart failure. * Ischemic cardiomyopathy with improved ejection fraction to 50 to 55% on echo in December 2019. * Pt had some atrial tachycardia was placed on amiodarone drip. (9) Acute on chronic anemia: Code(s): D64.9 - Anemia, unspecified Status: Acute Assessment and Plan: * Check stool for occult blood. Subjective Date/ti
--- NOTE | 2020-05-02 17:14 | PM.IMPN ---
Progress Note: A&P Assessment and Plan (1) Acute respiratory failure: Qualifiers: Respiratory failure complication: hypoxia Qualified Code(s): J96.01 - Acute respiratory failure with hypoxia Code(s): J96.00 - Acute respiratory failure, unspecified whether with hypoxia or hypercapnia Status: Acute Assessment and Plan: 69-year-old female with history of coronary artery disease and chronic kidney disease stage 5 due to diabetes and hypertension, patient was found unresponsive at home EMS was called patient was and respiratory distress and attempt to intubation was unsuccessful patient was brought to emergency department on BiPAP still struggling patient was intubated and currently on vent. Continues to be on the ventilator. (2) Sepsis: Code(s): A41.9 - Sepsis, unspecified organism Status: Deleted Assessment and Plan: On admission and supported by tachycardia, tachypnea, relative hypotension, and lactic acidosis. COVID negative See ID recommendations Pt is on iv hydrocortisone (3) Pneumonia: Code(s): J18.9 - Pneumonia, unspecified organism Status: Acute Assessment and Plan: Atelectasis versus pneumonia noted on chest CT. Will empirically treat with azithromycin and rocephin switched to iv doxycycline and rocephin due to amiodarone sputum and blood culture pending pt had thoracentesis for pleural effusion (4) Urinary tract infection: Code(s): N39.0 - Urinary tract infection, site not specified Status: Acute Assessment and Plan: Urine culture is growing E coli pansensitive continue Rocephin (5) Metabolic acidosis: Code(s): E87.2 - Acidosis Status: Acute Assessment and Plan: Vent management is per the sharepoint net developer. (6) Acute kidney injury superimposed on chronic kidney disease: Code(s): N17.9 - Acute kidney failure, unspecified; N18.9 - Chronic kidney disease, unspecified Status: Acute Assessment and Plan: Likely multifactorial in etiology to include to include possible ATN from sepsis, hypovolemia due to anemia +/- 3rd spacing. Pt has been on dialysis since wednesday. May need dialysis creat is 4.2. (7) Type 2 diabetes mellitus: Code(s): E11.9 - Type 2 diabetes mellitus without complications Status: Acute Assessment and Plan: Initiate sliding scale insulin, Accu-Cheks, and hypoglycemic protocol. (8) Congestive heart failure: Onset Date: ~12/2019 Code(s): I50.9 - Heart failure, unspecified Status: Acute Assessment and Plan: Patient with mixed systolic and diastolic congestive heart failure. Ischemic cardiomyopathy with improved ejection fraction to 50 to 55% on echo in December 2019. Pt had some atrial tachycardia was placed on amiodarone drip. (9) Acute on chronic anemia: Code(s): D64.9 - Anemia, unspecified Status: Acute Assessment and Plan: Check stool for occult blood. Subjective Date/time seen: 05/02/20 17:14 Interval history: Pt is in icu on ventilator, awaiting covid test. pt has history of coronary artery disease status post three-vessel CABG, aortic stenosis status post bioprosthetic aortic valve replacement, chronic kidney disease narrowing dialysis with maturing right upper extremity fistula, hypertension, chronic anemia, and type 2 diabetes mellitus. Covid is negative. ICU attending, ID and nephrology on the case. Pt receiving dialysis
[2020-05-02 18:18] LABS: Glucose Point of Care 72 (65-105)
[2020-05-02 19:37] LABS: Glucose Point of Care 86 (65-105)
[2020-05-02 23:37] LABS: Glucose Point of Care 107 (65-105)
[2020-05-03] VITALS (26 sets, daily range): BP systolic 90–109; BP diastolic 43–56; PULSE 65–92; RESP 14–25; TEMP 36.7–37.2; O2SAT 96–100
[2020-05-03] MEDS: LEVALBUTEROL NEB 1.25 MG/3 ML 0.63 MG INHALATION ×4 (01:48→19:37)
[2020-05-03] MEDS: IPRATROPIUM BR 0.02% INH SOLN 0.5 MG/2.5 ML VIAL INHALATION ×4 (01:48→19:37)
[2020-05-03] MEDS: SODIUM CHLORIDE 0.9% IV 250 ML 999 ML IV CONT (03:51)
[2020-05-03 04:10] LABS: Hematocrit 26.4 % (37.0-47.0); Hemoglobin 8.1 g/dL (12.0-15.0); Mean Corpuscular HGB Conc 30.7 g/dl (32-36); Mean Corpuscular Hemoglobin 28.7 pg (26-34); Mean Corpuscular Volume 93.6 fl (80-100); Mean Platelet Volume 12.6 fl (7.4-10.4); Platelet Count Result 194 k/mm3 (150-375); Red Blood Count 2.82 M/mm3 (4.2-5.4); Red Cell Distribution Width 18.8 % (11.5-14.5)
[2020-05-03 04:24] LABS: Base Excess ABG 4.9 mEq/l (+/-2.0); Carboxyhemoglobin 0.3 % THb (0-2.0); Fractional Inspired Oxygen 30 %; HCO3 ABG 27.6 mEq/l (22.0-26.0); Methemoglobin ABG 0.3 %THb (0-1.5); Oxygen Content ABG 11.8 %vol (16.0-22.0); Oxygen Saturation ABG 97.8 % (95.0-100.0); Oxyhemoglobin 95.5 % THb (90.0-100.0); PCO2 ABG 33.1 mmHg (35.0-45.0); PO2 FiO2 Ratio Arterial Blood 3.03 %; Reduced Hemoglobin 3.9 %THb (0-5.0); Total Hemoglobin 8.7 g/dL (12.0-18.0)
[2020-05-03 04:26] LABS: Site Drawn LEFT RADIAL; pH ABG 7.539 (7.350-7.450)
[2020-05-03 04:27] LABS: Arterial Blood Gas Minute Volume 100 LPM; Arterial Blood Gas PEEP 5 cmH2O; Arterial Blood Gas Vent Mode ASV; Device VENTILATOR; Modified Allen's Test Pass
[2020-05-03 04:31] LABS: Blood Urea Nitrogen 63 mg/dL (7-17); Calcium 7.3 mg/dL (8.4-10.2); Carbon Dioxide 30 mmol/L (22-30); Chloride 90 mmol/L (98-107); Estimated CRCL calculation 16 ml/min; Estimated Glomerular Filt Rate 13; Glucose 114 mg/dL (65-105); Magnesium 1.8 mg/dL (1.6-2.3); Phosphorus 4.8 mg/dL (2.5-4.5); Potassium 4.1 mmol/L (3.4-5.0); Sodium 129 mmol/L (137-145)
[2020-05-03] MEDS: SODIUM CHLORIDE 0.9% IV 500 ML 999 ML IV CONT (05:25)
[2020-05-03] MEDS: HYDROCORTISONE SODIUM SUCCINATE 100 MG/2 ML VIAL 50 MG IV PUSH (05:26)
[2020-05-03] MEDS: ATORVASTATIN 20 MG TABLET FEED TUBE (07:55)
[2020-05-03] MEDS: ASPIRIN 325 MG TABLET FEED TUBE (07:55)
[2020-05-03] MEDS: CALCIUM ACETATE 667 MG TABLET FEED TUBE (07:55)
[2020-05-03] MEDS: HEPARIN SODIUM 5,000 UNITS/ML VIAL 5000 UNITS SUB-Q ×2 (07:56→20:45)
[2020-05-03] MEDS: MIDODRINE HCL 10 MG TABLET FEED TUBE ×3 (07:56→20:44)
[2020-05-03] MEDS: PANTOPRAZOLE SODIUM IV 40 MG VIAL IV PUSH ×2 (07:57→20:45)
--- NOTE | 2020-05-03 08:58 | WPDINTPN ---
Progress Note: A&P Assessment and Plan (1) Acute respiratory failure: Qualifiers: Respiratory failure complication: hypoxia Qualified Code(s): J96.01 - Acute respiratory failure with hypoxia Code(s): J96.00 - Acute respiratory failure, unspecified whether with hypoxia or hypercapnia Status: Acute Assessment and Plan: Acute Respiratory failure secondary to pneumonia, encephalopathy, baseline COPD. She was intubated on 04/26. Continue full mechanical ventilation support to prevent hypoxemia/hypercarbia and end organ damage. ABG reviewed. FiO2 of 30% and peep of 5. ABG is showing mild alkalosis which seems respiratory in nature. Chest x-ray reviewed. She has bilateral airspace disease with bilateral pleural effusion more on the right side. Chest x-ray somewhat improved compared to the past with less pleural effusion. Low tidal volume ventilation strategy to prevent volutrauma Bronchodilators. Steroids not indicated from respiratory perspective. She underwent a right-sided thoracentesis with 1 L of fluid taken off. She is not requiring any sedation now. Yesterday SBT trial failed because of her being very sleepy and drowsy. She will be given fentanyl as p.r.n. only if she really needs it. She was placed on spontaneous breathing trial today with pressure of 10/5 and has been tolerating it so far. She will be placed on pressure support ventilation of 5/5 and an ABG was performed after 30-45 minutes. If she does well with acceptable ABG then in a time of extubation will be made. Chest CT 04/26/2020 IMPRESSION: 1. Bilateral lower lobe and right middle lobe airspace disease, atelectasis versus pneumonia. 2: Bilateral pleural effusions. 3: Cardiomegaly with atherosclerosis. 4: Right paratracheal lymphadenopathy, likely reactive. 5: 3 mm left apical nodule, likely benign. Consider follow-up CT chest in 12 months. (2) Septic shock: Code(s): A41.9 - Sepsis, unspecified organism; R65.21 - Severe sepsis with septic shock Status: Acute Assessment and Plan: Secondary to pneumonia and UTI. 04/26/2020 blood cultures negative x2. She was started on vancomycin for Gram-positive cocci in sputum but later the sputum has been reported as normal luisa. Vancomycin has been started since then. 04/26/2020 Urine culture is growing E coli, pansensitive, continue ceftriaxone Azithromycin was switched to doxycycline as patient was placed on amiodarone Legionnaire antigen is negative as well. Pneumococcal antigen not detected She is off pressors now. Patient is off IV fluids. She has been weaned off from pressors. Steroids have been weaned and will stop it today. Midodrine has been added because of inability to wean pressors. Will continue it for now. Few of the blood pressure reading has been borderline low. (3) Suspected COVID-19 virus infection: Code(s): Z20.828 - Contact with and (suspected) exposure to other viral communicable diseases Status: Acute Assessment and Plan: COVID-19 suspected. SARS-CoV-2 PCR - NEGATIVE Airborne, Droplet and Contact Isolation WAS DISCONTINUED (4) Pneumonia: Code(s): J18.9 - Pneumonia, unspecified organism Status: Acute Assessment and Plan: Sputum cultures from 04/26/2020 grew normal respiratory luisa. Started on vancomycin on 04/30/2020 for concern of gram-positive cocci on the sputum. I think we can deescalate antibiotics. May potentially stop vancomycin if analysis of pleural fluid is negative for any signs of infection. She will complete doxycycline today. I will continue ceftriaxone for total of 7 days. Repeat procalcitonin has been pending. Infectious Disease recommendations appreciated. (5) UTI (urinary tract infection): Code(s): N39.0 - Urinary tract infection, site not specified Status: Acute Assessment and Plan: 04/26/2020 urine cultures growing pansensitive E coli, continue ceftriaxone Renal ultras
[2020-05-03 09:25] LABS: Glucose Point of Care 136 (65-105)
--- NOTE | 2020-05-03 10:15 | PM.PNCARD ---
Progress Note: A&P Additional Plan 69-year-old woman with advanced, severe ischemic cardiomyopathy. Admitted yet again with respiratory insufficiency requiring intubation and ventilator support. With dialysis/diuresis she is becoming more compensated and appears may be able to be extubated relatively soon. She is off pressor support During last admission in January of this year the conversations I had with this lady would lead to the impression that she did not wish to have any aggressive measures/procedures. Seems rather inconsistent therefore that when she comes to the hospital she is full code in ends up being intubated yet again. Presumably aggressive support care is what is desired. Once she is extubated we may consider medication for congestive heart failure/ischemic cardiomyopathy. That will probably be challenging as she is borderline hypotensive and was actually taking midodrine as an outpatient. Prognosis in this situation is obviously poor Rubén Hopper MD [facility] Subjective Date/time seen: Date of service: 05/03/20 10:15 Interval history: Follow-up visit in 69-year-old patient with long history of coronary disease, ischemic cardiomyopathy and aortic valve replacement. Patient admitted again with respiratory insufficiency requiring intubation and mechanical ventilator support. Still intubated on the ventilator Review of Systems Review of Systems: ROS unobtainable: Yes unobtainable due to medical condition Exam Const: Other: Sedated on the ventilator HENMT: Mouth: Yes moist mucous membranes Eyes: Sclera: sclerae normal Pupils: Equal, round and reactive pupils present Neck: Neck: no JVD Thyroid: thyroid normal Other: Normal carotid pulses, no bruits Resp: Other: Relatively clear breath sounds bilaterally a few central rhonchi are audible Cardio: Rate: regular rate Rhythm: regular rhythm Other: Grade 2/6 crescendo decrescendo murmur at the base compatible with the patient's aortic valve prosthesis GI: Auscultation: normal bowel sounds Skin: General skin exam: normal color Extrem: Other: Extremities are warm and well perfused there is no edema Objective Data Vital Signs Vital Signs: Vital Signs - 24 hr 05/02/20 10:30 05/02/20 10:32 05/02/20 10:45 Temperature Pulse Rate 73 71 74 Respiratory Rate Blood Pressure 96/53 L 97/53 L Pulse Oximetry 99 05/02/20 11:00 05/02/20 11:15 05/02/20 11:30 Temperature Pulse Rate 72 77 70 Respiratory Rate Blood Pressure 91/51 L 92/51 L 99/54 L Pulse Oximetry 05/02/20 11:45 05/02/20 11:48 05/02/20 11:58 Temperature Pulse Rate 73 71 71 Respiratory Rate Blood Pressure 85/54 L 94/54 L 89/49 L Pulse Oximetry 05/02/20 12:00 05/02/20 12:20 05/02/20 13:50 Temperature 36.2 C L 36.2 C L Pulse Rate 71 73 70 Respiratory Rate 15 18 Blood Pressure 101/58 L 101/58 L Pulse Oximetry 98 100 100 05/02/20 14:00 05/02/20 14:08 05/02/20 14:30 Temperature Pulse Rate 70 75 75 Respiratory Rate 14 21 H 20 Blood Pressure 116/57 L Pulse Oximetry 100 05/02/20 16:00 05/02/20 17:13 05/02/20 18:00 Temperature 36.8 C Pulse Rate 74 73 71 Respiratory Rate 17 15 Blood Pressure 101/47 L 110/47 L Pulse Oximetry 99 99 99 05/02/20 20:00 05/02/20 20:20 05/02/20 20:30 Temperature 36.6 C Pulse Rate 70 68 67 Respiratory Rate 15 15 15 Blood Pressure 114/50 L Pulse Oximetry 97 98 05/02/20 22:00 05/02/20 23:35 05/02/20 23:55 Temperature Pulse Rate 68 74 70 Respiratory Rate 15 15 Blood Pressure 98/79 L Pulse Oximetry 98 99 98 05/03/20 00:00 05/03/20 01:49 05/03/20 01:50 Temperature 36.7 C Pulse Rate 70 69 92 Respiratory Rate 15 20 Blood Pressure 106/43 L Pulse Oximetry 98 98 05/03/20 02:00 05/03/20 02:04 05/03/20 04:00 Temperature 36.9 C Pulse Rate 75 90 70 Respiratory Rate 18 20 17 Blood Pressure 101/50 L 98/47 L Pulse Oximetry 98 98 05/03/20 04:14 05/03/20 06:00
--- NOTE | 2020-05-03 11:21 | PCDIET ---
Nutrition Follow-Up Complete: Nutrition Diagnosis: Inadequate oral intake related to mechanical ventilation as evidenced by tube feedings providing less than estimated needs. Nutrition Goal: Patient to meet estimated nutritional needs Goal in progress. Patient has been tolerating Nepro at 40mL/hr. Tube feedings currently on hold for SBT. Last recorded weight is 85.5 kg which is stable. Bowel Motility: Last documented BM on 04/29/20. Labs Reviewed: BUN (63), Cr (3.4), PO4 (4.8), Na (129), Alb (3.3), Jennifer Ca (7.86) Meds Noted: Phoslo, Albuterol, Doxycycline, Epogen, Novolog, Lantus, Fentanyl, Midodrine, Rocephin, Aspart, Atrovent, Protonix Additional Notes: No documented skin changes. Recommend resuming tube feeding is unable to extubate. Nutrition Monitoring and Evaluation: Follow up every Wednesday/Wednesday. Follow daily in ICU rounds.
--- NOTE | 2020-05-03 11:22 | PM.PNNEP ---
Progress Note: A&P Assessment and Plan (1) CKD (chronic kidney disease), stage V: Code(s): N18.5 - Chronic kidney disease, stage 5 Status: Acute Assessment and Plan: The patient has chronic kidney disease. This is due to diabetes, hypertension, and vascular disease. (2) BARRON (acute kidney injury): Code(s): N17.9 - Acute kidney failure, unspecified Status: Acute Assessment and Plan: The patient has acute kidney injury on top of severe chronic kidney disease. Will do hemodialysis today. discussed with Dr Good (3) Suspected COVID-19 virus infection: Code(s): Z20.828 - Contact with and (suspected) exposure to other viral communicable diseases Status: Acute Assessment and Plan: Because of the pneumonia and severity of her illness she is getting a COVID-19 test. This is negative. (4) Encephalopathy: Code(s): G93.40 - Encephalopathy, unspecified Status: Acute Assessment and Plan: sedated. (5) Sepsis: Code(s): A41.9 - Sepsis, unspecified organism Status: Deleted Assessment and Plan: The patient seems to have septic syndrome. Urine culture is positive. blood negative. (6) Metabolic acidosis: Code(s): E87.2 - Acidosis Status: Acute Assessment and Plan: improved (7) Pneumonia: Code(s): J18.9 - Pneumonia, unspecified organism Status: Acute Assessment and Plan: The patient has evidence on chest x-ray. She is getting antibiotics. (8) Anemia: Code(s): D64.9 - Anemia, unspecified Status: Acute Assessment and Plan: She is anemic at baseline. Hemoglobin bouncing around 8.0 On EPO 3 times a week. Very good reticulocyte count suggesting good response to EPO (9) Diabetes: Code(s): E11.9 - Type 2 diabetes mellitus without complications Status: Acute Assessment and Plan: She is currently on insulin sliding scale Subjective Date/time seen: 05/03/20 11:22 Interval history: Patient is sedated. On Vent. Off pressors. bp seems a bit better. A little more awake today. She opens her eyes in regards examiner. Scheduled for hemodialysis today. Will try to remove more fluid. Review of Systems Review of Systems: ROS unobtainable: Yes unobtainable due to endotracheal tube Exam Narrative: Exam Narrative: WDWN in NAD skin no rash head ncat lungs mildly coarse at the bases cor reg no rub or gallop abd BS+ no tenderness and soft ext 1+ edema. Objective Data Vital Signs Vital Signs: Vital Signs - 24 hr 05/02/20 11:30 05/02/20 11:45 05/02/20 11:48 Temperature Pulse Rate 70 73 71 Respiratory Rate Blood Pressure 99/54 L 85/54 L 94/54 L Pulse Oximetry 05/02/20 11:58 05/02/20 12:00 05/02/20 12:20 Temperature 36.2 C L 36.2 C L Pulse Rate 71 71 73 Respiratory Rate 15 18 Blood Pressure 89/49 L 101/58 L 101/58 L Pulse Oximetry 98 100 05/02/20 13:50 05/02/20 14:00 05/02/20 14:08 Temperature Pulse Rate 70 70 75 Respiratory Rate 14 21 H Blood Pressure 116/57 L Pulse Oximetry 100 100 05/02/20 14:30 05/02/20 16:00 05/02/20 17:13 Temperature 36.8 C Pulse Rate 75 74 73 Respiratory Rate 20 17 Blood Pressure 101/47 L Pulse Oximetry 99 99 05/02/20 18:00 05/02/20 20:00 05/02/20 20:20 Temperature 36.6 C Pulse Rate 71 70 68 Respiratory Rate 15 15 15 Blood Pressure 110/47 L 114/50 L Pulse Oximetry 99 97 98 05/02/20 20:30 05/02/20 22:00 05/02/20 23:35 Temperature Pulse Rate 67 68 74 Respiratory Rate 15 15 Blood Pressure 98/79 L Pulse Oximetry 98 99 05/02/20 23:55 05/03/20 00:00 05/03/20 01:49 Temperature 36.7 C Pulse Rate 70 70 69 Respiratory Rate 15 15 Blood Pressure 106/43 L Pulse Oximetry 98 98 98 05/03/20 01:50 05/03/20 02:00 05/03/20 02:04 Temperature Pulse Rate 92 75 90 Respiratory Rate 20 18 20 Blood Pressure 101/50 L Puls
--- NOTE | 2020-05-03 12:26 | WPDPROCEDUR ---
Procedures Central Line Placement Left IJ: Central Line Date: 05/03/20 Central Line Time: 12:26 Discussed w/ the patient/family/POA,the placement of a central venous catheter, including its clinical necessity/indication & associated potential risks, benifits and alternatives.: Yes The patient/family/POA understand(s) and acknowledge(s) the need to proceed with central venous catheter insertion as an important element of the patient's clinical management.: Yes Consent: Consent was obtained from the through telephone. Patient is intubated and cannot give consent herself. Time Out Performed: Yes Patient Position: trendelenburg Patient placed on monitor/pulse ox: Yes Provider Prep: mask, sterile gown, sterile gloves, Max. sterile barrier precautions, cap and hand hygiene Central line prep: Chlorhexidine scrub and sterile full body sheet applied Local anesthesia used: lidocaine 1% Ultrasound used for placement: Yes Central line lumen inserted: triple Albanian: 7 Length (cm): 15 Post procedure: sutured in place, good blood return, all ports aspirated, flushed, capped, tegaderm, hemostatic disc, antimicrobial disc and aseptic technique maintained throughout procedure Post procedure x-ray: tip of catheter in good position and no pneumothorax seen Patient tolerated procedure: well Complications: none
--- NOTE | 2020-05-03 12:40 | WPDGIPROGNO ---
Progress Note: A&P Additional Plan Patient remains on the ventilator. patient is sedated. Unable to add any history. Physical exam reveals her abdomen to be soft in nontender. No masses are listed. Labs essentially unchanged. AST 57, ALT 123, alk-phos 281, total bilirubin 0.3. Hemoglobin 8.1, hematocrit 26.4. Impression 1. Acute respiratory failure. Patient remains on ventilator. [place] to have underlying pneumonia. 2. Elevated LFTs. Likely related to sepsis. Continue to monitor conservatively at this time. 3. Anemia. Likely multifactorial. No active GI bleeding noted but Hemoccult-positive stools noted earlier in stay. Plan is to treat for stress gastritis. Proton pump inhibitor at this time. 4. Chronic kidney disease. Patient on dialysis. Likely contributes to her underlying anemia. Subjective Date/time seen: 05/03/20 12:40 Objective Data Vital Signs Vital Signs: Vital Signs - 24 hr 05/02/20 13:50 05/02/20 14:00 05/02/20 14:08 Temperature Pulse Rate 70 70 75 Respiratory Rate 14 21 H Blood Pressure 116/57 L Pulse Oximetry 100 100 05/02/20 14:30 05/02/20 16:00 05/02/20 17:13 Temperature 36.8 C Pulse Rate 75 74 73 Respiratory Rate 20 17 Blood Pressure 101/47 L Pulse Oximetry 99 99 05/02/20 18:00 05/02/20 20:00 05/02/20 20:20 Temperature 36.6 C Pulse Rate 71 70 68 Respiratory Rate 15 15 15 Blood Pressure 110/47 L 114/50 L Pulse Oximetry 99 97 98 05/02/20 20:30 05/02/20 22:00 05/02/20 23:35 Temperature Pulse Rate 67 68 74 Respiratory Rate 15 15 Blood Pressure 98/79 L Pulse Oximetry 98 99 05/02/20 23:55 05/03/20 00:00 05/03/20 01:49 Temperature 36.7 C Pulse Rate 70 70 69 Respiratory Rate 15 15 Blood Pressure 106/43 L Pulse Oximetry 98 98 98 05/03/20 01:50 05/03/20 02:00 05/03/20 02:04 Temperature Pulse Rate 92 75 90 Respiratory Rate 20 18 20 Blood Pressure 101/50 L Pulse Oximetry 98 05/03/20 04:00 05/03/20 04:14 05/03/20 06:00 Temperature 36.9 C Pulse Rate 70 70 73 Respiratory Rate 17 15 Blood Pressure 98/47 L 90/56 L Pulse Oximetry 98 98 98 05/03/20 07:53 05/03/20 08:00 05/03/20 08:02 Temperature 37.2 C Pulse Rate 75 73 74 Respiratory Rate 15 15 Blood Pressure 91/47 L Pulse Oximetry 98 98 05/03/20 08:35 05/03/20 08:39 05/03/20 10:00 Temperature Pulse Rate 71 71 71 Respiratory Rate 15 Blood Pressure Pulse Oximetry 98 05/03/20 10:58 05/03/20 12:00 Temperature Pulse Rate 74 71 Respiratory Rate 16 Blood Pressure Pulse Oximetry 99 97 Intake/Output Intake/Output: Intake & Output 04/30/20 05/01/20 05/02/20 05/03/20 23:59 23:59 23:59 23:59 Intake Total 2417.2 1347 921 932 Output Total 3100 3200 3150 135 [facility] -[id number] [id number] [id number] Meds/Results Medications: Active Medications Generic Name Dose Route Start Last Admin Trade Name Freq PRN Reason Stop Dose Admin Albuterol 2.5 mg 04/26/20 14:11 Albuterol Sulf Neb 2.5mg/0.5ml INHALATION Q4H PRN Wheezing Aspirin 325 mg 04/30/20 08:00 05/03/20 07:55 Aspirin FEED TUBE 325 mg DAILY@0800 CYNTHIA Administration Atorvastatin Calcium 20 mg 04/30/20 09:00 05/03/20 07:55 Lipitor FEED TUBE 20 mg DAILY CYNTHIA Administration Calcium Acetate 667 mg 04/27/20 13:00 05/03/20 07:55 Phoslo FEED TUBE 667 mg TID CYNTHIA Administration Dextrose 12.5 gm 04/27/20 09:52 Dextrose 50% Syringe IV PUSH PRN PRN Hypoglycemia Protocol Epoetin Mike 10,000 units 04/27/20 11:55 05/02/20 11:08 Epogen IV PUSH 10,000 units TUTHSA CYNTHIA Administration Fentanyl Citrate 25 mcg 05/02/20 13:44 Sublimaze IV PUSH Q1H PRN Pain Glucagon 1 mg 04/27/20 09:52 Glucagon For Inj IM PRN PRN Hypoglycemia Protocol Glucose 15 gm 04/27/20 09:52 Glutose 15 PO PRN PRN Hypoglycemia Protocol Heparin Sodium (Porcine) 5,000 un
[2020-05-03] MEDS: INSULIN GLARGINE (*BKC) 100 UNITS/ML 30 UNITS SUB-Q (13:24)
[2020-05-03 14:28] LABS: Glucose Point of Care 163 (65-105)
[2020-05-03 15:02] LABS: Alveolar/Arterial O2 Gradient 75.7 mmHg; Base Excess ABG 3.3 mEq/l (+/-2.0); Fractional Inspired Oxygen 30 %; HCO3 ABG 27.6 mEq/l (22.0-26.0); Modified Allen's Test Pass; Oxygen Content ABG 12.5 %vol (16.0-22.0); Oxygen Saturation ABG 97.2 % (95.0-100.0); Oxyhemoglobin 95.4 % THb (90.0-100.0); PCO2 ABG 40.9 mmHg (35.0-45.0); PO2 ABG 90.1 mmHg (80.0-100.0); Site Drawn LEFT RADIAL; Total Hemoglobin 9.2 g/dL (12.0-18.0); pH ABG 7.447 (7.350-7.450)
[2020-05-03 15:03] LABS: Arterial Blood Gas PEEP 5 cmH2O; Arterial Blood Gas Pressure Support 5 cmH2O; Arterial Blood Gas Vent Mode SPONTANEOUS; Device VENTILATOR
--- NOTE | 2020-05-03 15:17 | PM.IMPN ---
Progress Note: A&P Assessment and Plan (1) Acute respiratory failure: Qualifiers: Respiratory failure complication: hypoxia Qualified Code(s): J96.01 - Acute respiratory failure with hypoxia Code(s): J96.00 - Acute respiratory failure, unspecified whether with hypoxia or hypercapnia Status: Acute Assessment and Plan: 69-year-old female with history of coronary artery disease and chronic kidney disease stage 5 due to diabetes and hypertension, patient was found unresponsive at home EMS was called patient was and respiratory distress and attempt to intubation was unsuccessful patient was brought to emergency department on BiPAP still struggling patient was intubated and currently on vent. just extubated (2) Pneumonia: Code(s): J18.9 - Pneumonia, unspecified organism Status: Acute Assessment and Plan: Atelectasis versus pneumonia noted on chest CT. Will empirically treat with azithromycin and rocephin switched to iv doxycycline and rocephin due to amiodarone drip give earlier sputum and blood culture pending pt had thoracentesis for pleural effusion (3) Urinary tract infection: Code(s): N39.0 - Urinary tract infection, site not specified Status: Acute Assessment and Plan: Urine culture is growing E coli pansensitive continue Rocephin (4) Metabolic acidosis: Code(s): E87.2 - Acidosis Status: Acute Assessment and Plan: Vent management is per the shipper.just extubated (5) Acute kidney injury superimposed on chronic kidney disease: Code(s): N17.9 - Acute kidney failure, unspecified; N18.9 - Chronic kidney disease, unspecified Status: Acute Assessment and Plan: Likely multifactorial in etiology to include to include possible ATN from sepsis, hypovolemia due to anemia +/- 3rd spacing. Pt has been on dialysis since wednesday. May need dialysis creat is 3.4 (6) Type 2 diabetes mellitus: Code(s): E11.9 - Type 2 diabetes mellitus without complications Status: Acute Assessment and Plan: Initiate sliding scale insulin, Accu-Cheks, and hypoglycemic protocol. (7) Congestive heart failure: Onset Date: ~12/2019 Code(s): I50.9 - Heart failure, unspecified Status: Acute Assessment and Plan: Patient with mixed systolic and diastolic congestive heart failure. Ischemic cardiomyopathy with improved ejection fraction to 50 to 55% on echo in December 2019. Pt had some atrial tachycardia was placed on amiodarone drip earlier in the week off amiodarone now. (8) Acute on chronic anemia: Code(s): D64.9 - Anemia, unspecified Status: Acute Assessment and Plan: Check stool for occult blood. Seen by GI treat for gastritis. with PPI Subjective Date/time seen: 05/03/20 15:17 Interval history: Pt is in icu on ventilator, awaiting covid test. pt has history of coronary artery disease status post three-vessel CABG, aortic stenosis status post bioprosthetic aortic valve replacement, chronic kidney disease narrowing dialysis with maturing right upper extremity fistula, hypertension, chronic anemia, and type 2 diabetes mellitus. Covid is negative. ICU attending, ID and nephrology on the case. Pt receiving dialysis, pt had thoracentesis for pleural effusion, ongoing sepsis, respiratory failure, kidney failure. Critically unwell multiple systems effected. Pt had central placed as her femoral line came out.extubated today Exam Narrative: Exam Narrative: P
[2020-05-03 16:39] LABS: Glucose Point of Care 146 (65-105)
[2020-05-03 19:20] LABS: Glucose Pleural Fluid 207 mg/dL; LDH Pleural Fluid 106 U/L; Total Protein Pleural Fluid <3.0 g/dL
[2020-05-03] MEDS: TOLNAFTATE 1% POWDER 45 GM BTL 1 APPLIC TOPICAL (20:45)
[2020-05-03 20:57] LABS: Glucose Point of Care 110 (65-105)
[2020-05-04] VITALS (29 sets, daily range): BP systolic 82–109; BP diastolic 39–56; PULSE 56–75; RESP 15–24; TEMP 36–37.1; O2SAT 95–100; BMI 11.0
[2020-05-04 00:39] LABS: Glucose Point of Care 70 (65-105)
[2020-05-04] MEDS: IPRATROPIUM BR 0.02% INH SOLN 0.5 MG/2.5 ML VIAL INHALATION ×4 (01:49→20:27)
[2020-05-04] MEDS: LEVALBUTEROL NEB 1.25 MG/3 ML 0.63 MG INHALATION ×4 (01:49→20:27)
[2020-05-04] MEDS: ONDANSETRON INJ 4 MG/2 ML VIAL IV PUSH (02:06)
[2020-05-04 04:18] LABS: Alveolar/Arterial O2 Gradient 48.1 mmHg; Base Excess ABG 0.9 mEq/l (+/-2.0); Carboxyhemoglobin 0.2 % THb (0-2.0); Fractional Inspired Oxygen 28 %; HCO3 ABG 26.4 mEq/l (22.0-26.0); Oxygen Content ABG 12.5 %vol (16.0-22.0); Oxygen Saturation ABG 97.2 % (95.0-100.0); Oxyhemoglobin 95.5 % THb (90.0-100.0); PCO2 ABG 46.1 mmHg (35.0-45.0); PO2 ABG 97.1 mmHg (80.0-100.0); PO2 FiO2 Ratio Arterial Blood 3.47 %; Reduced Hemoglobin 4.3 %THb (0-5.0); Total Hemoglobin 9.2 g/dL (12.0-18.0); pH ABG 7.375 (7.350-7.450)
[2020-05-04 04:19] LABS: Device NASAL CANNULA; Modified Allen's Test Pass; Site Drawn LEFT RADIAL
[2020-05-04 05:41] LABS: Glucose Point of Care 70 (65-105)
[2020-05-04 05:41] LABS: Glucose Point of Care 53 (65-105)
[2020-05-04] MEDS: DEXTROSE 50% 25 GM/50 ML SYRINGE IV PUSH (05:43)
[2020-05-04 06:05] LABS: Basophils Percent Auto 0.1 % (0.2-1.2); Eosinophils Absolute Auto 0.1 K/mm3 (0-0.3); Eosinophils Percent Auto 0.4 % (0-4.4); Hematocrit 27.8 % (37.0-47.0); Hemoglobin 8.3 g/dL (12.0-15.0); Immature Granulocyte Absolute 0.15 K/mm3 (0.00-0.031); Immature Granulocyte Percent A 0.7 % (0-0.5); Lymphocytes Absolute Auto 0.75 K/mm3 (0.9-3.2); Lymphocytes Percent Auto 3.5 % (18.3-44.2); Mean Corpuscular HGB Conc 29.9 g/dl (32-36); Mean Corpuscular Hemoglobin 28.5 pg (26-34); Mean Corpuscular Volume 95.5 fl (80-100); Mean Platelet Volume 11.8 fl (7.4-10.4); Monocytes Absolute Auto 0.8 K/mm3 (0.1-0.6); Monocytes Percent Auto 3.5 % (2.6-8.5); Neutrophils Absolute Auto 19.9 K/mm3 (1.3-6.7); Neutrophils Percent Auto 91.8 % (45.5-73.1); Nucleated Red Blood Cells Absolute Auto 0.5 K/mm3 (0.0-0.012); Nucleated Red Blood Cells Perc 2.3 % (0.0-0.2); Platelet Count Result 184 k/mm3 (150-375); Red Blood Count 2.91 M/mm3 (4.2-5.4); Red Cell Distribution Width 17.9 % (11.5-14.5); White Blood Count 21.7 K/mm3 (4.5-10.0)
[2020-05-04 06:13] LABS: Glucose Point of Care 118 (65-105)
[2020-05-04 06:31] LABS: Alanine Aminotransferase 60 U/L (4-35); Albumin Level 3.2 g/dL (3.5-5.1); Alkaline Phosphatase 170 U/L (38-126); Aspartate Amino Transferase 30 U/L (14-36); Bilirubin,Total 0.3 mg/dL (0.2-1.3); Blood Urea Nitrogen 77 mg/dL (7-17); Carbon Dioxide 28 mmol/L (22-30); Chloride 92 mmol/L (98-107); Estimated CRCL calculation 12 ml/min; Estimated Glomerular Filt Rate 10; Glucose 67 mg/dL (65-105); Magnesium 1.9 mg/dL (1.6-2.3); Phosphorus 6.6 mg/dL (2.5-4.5); Potassium 4.3 mmol/L (3.4-5.0); Sodium 131 mmol/L (137-145)
[2020-05-04] MEDS: MIDODRINE HCL 10 MG TABLET FEED TUBE ×3 (07:50→18:25)
[2020-05-04] MEDS: ASPIRIN 325 MG TABLET FEED TUBE (07:50)
[2020-05-04] MEDS: PANTOPRAZOLE SODIUM IV 40 MG VIAL IV PUSH (07:50)
[2020-05-04] MEDS: HEPARIN SODIUM 5,000 UNITS/ML VIAL 5000 UNITS SUB-Q ×3 (07:50→21:41)
[2020-05-04] MEDS: ATORVASTATIN 20 MG TABLET FEED TUBE (07:50)
[2020-05-04] MEDS: TOLNAFTATE 1% POWDER 45 GM BTL 1 APPLIC TOPICAL ×2 (07:51→21:41)
[2020-05-04 07:54] LABS: Glucose Point of Care 75 (65-105)
--- NOTE | 2020-05-04 08:52 | WPDINTPN ---
Progress Note: A&P Assessment and Plan (1) Acute respiratory failure: Qualifiers: Respiratory failure complication: hypoxia Qualified Code(s): J96.01 - Acute respiratory failure with hypoxia Code(s): J96.00 - Acute respiratory failure, unspecified whether with hypoxia or hypercapnia Status: Acute Assessment and Plan: Acute Respiratory failure secondary to pneumonia, encephalopathy, baseline COPD. She was intubated on 04/26 and now extubated on 05/03. Bronchodilators. Steroids not indicated from respiratory perspective. She underwent a right-sided thoracentesis with 1 L of fluid taken off. Fluid analysis is supportive of transudative nature. Cultures and cytology is pending. She has been extubated yesterday after she did well with spontaneous breathing trial. She did not require any BiPAP support and seems to be doing well on 2 L of oxygen. ABG today in the morning seems to be acceptable range. Speech evaluation, PT OT evaluation has been ordered. Incentive spirometry. Encourage deep breathing and cough. Encourage activity and will potentially bring her out of the bed to chair today. Chest CT 04/26/2020 IMPRESSION: 1. Bilateral lower lobe and right middle lobe airspace disease, atelectasis versus pneumonia. 2: Bilateral pleural effusions. 3: Cardiomegaly with atherosclerosis. 4: Right paratracheal lymphadenopathy, likely reactive. 5: 3 mm left apical nodule, likely benign. Consider follow-up CT chest in 12 months. (2) Septic shock: Code(s): A41.9 - Sepsis, unspecified organism; R65.21 - Severe sepsis with septic shock Status: Acute Assessment and Plan: Secondary to pneumonia and UTI. 04/26/2020 blood cultures negative x2. Vancomycin has been started for g positive cocci in sputum but that has been stopped now. 04/26/2020 Urine culture is growing E coli, pansensitive, continue ceftriaxone Azithromycin was switched to doxycycline as patient was placed on amiodarone and she has completed the dose of doxycycline. Legionnaire antigen is negative as well. Pneumococcal antigen not detected She is off pressors now. Patient is off IV fluids. She has been weaned off from pressors. Midodrine has been added because of inability to wean pressors. Will continue it for now. Persistent hypertension requiring albumin support during dialysis. She has new systolic congestive heart failure with ejection fraction of 25%. Seems that her baseline systolic blood pressure is in 80s and 90s for long time now. She was on midodrine as an outpatient before this admission. (3) Suspected COVID-19 virus infection: Code(s): Z20.828 - Contact with and (suspected) exposure to other viral communicable diseases Status: Acute Assessment and Plan: COVID-19 suspected. SARS-CoV-2 PCR - NEGATIVE Airborne, Droplet and Contact Isolation WAS DISCONTINUED (4) Pneumonia: Code(s): J18.9 - Pneumonia, unspecified organism Status: Acute Assessment and Plan: Sputum cultures from 04/26/2020 grew normal respiratory luisa. Started on vancomycin on 04/30/2020 for concern of gram-positive cocci on the sputum. She is currently on ceftriaxone only and will complete a course of 7-10 days. Rest of the antibiotics have been stopped. Repeat procalcitonin has been pending. Infectious Disease recommendations appreciated. (5) UTI (urinary tract infection): Code(s): N39.0 - Urinary tract infection, site not specified Status: Acute Assessment and Plan: 04/26/2020 urine cultures growing pansensitive E coli, continue ceftriaxone Renal ultrasound does not show any abscess or hydronephrosis (6) BARRON (acute kidney injury): Code(s): N17.9 - Acute kidney failure, unspecified Status: Acute Assessment and Plan: Patient has CKD 5 and was awaiting initiation of dialysis. She has AV graft in her right arm. Presented with acute on chronic kidney disease, Appreciate
[2020-05-04] MEDS: INSULIN GLARGINE (*BKC) 100 UNITS/ML 24 UNITS SUB-Q (09:52)
[2020-05-04 09:54] LABS: Glucose Point of Care 75 (65-105)
--- NOTE | 2020-05-04 10:13 | PM.PNCARD ---
Progress Note: A&P Additional Plan Severe cardiomyopathy with coronary artery disease and aortic valve replacement as well. Patient also has end-stage renal disease dependent on dialysis. Volume overload seems to be improved with dialysis. Systolic blood pressure is low enough where CHF medications can really not be realistically initiated. As I mentioned yesterday long-term prognosis is obviously very poor in this situation. Rubén Hopper MD [facility] Subjective Date/time seen: Date of service: 05/04/20 10:13 Interval history: Follow-up visit in 69-year-old patient with long history of coronary disease, ischemic cardiomyopathy and aortic valve replacement. Patient admitted again with respiratory insufficiency requiring intubation and mechanical ventilator support. Patient was extubated yesterday is on nasal cannula oxygen and oxygenating well. Was dialyzed last night. His extremely weak with very weak voice and reports to be feeling no shortness of breath this morning. Exam Const: General: no acute distress Other: Extremely weak lady in ICU room 8. Was sleeping and reports to be in no distress upon awakening but very soft voice HENMT: Mouth: Yes dry mucous membranes Eyes: Pupils: Equal, round and reactive pupils present EOM: EOMs intact bilaterally Neck: Neck: supple Thyroid: thyroid normal Other: No obvious jugular venous distention Resp: Effort & Inspection: normal respiratory effort Other: Few scattered rhonchi are noted centrally Cardio: Rate: regular rate Rhythm: regular rhythm Heart sounds: Murmur heart sound present GI: Auscultation: normal bowel sounds Neuro: Other: Response appropriately but very weak Extrem: General: normal to inspection Other: No peripheral edema at all Objective Data Vital Signs Vital Signs: Vital Signs - 24 hr 05/03/20 10:58 05/03/20 12:00 05/03/20 13:37 Temperature Pulse Rate 74 74 74 Respiratory Rate 18 14 Blood Pressure 103/52 L Pulse Oximetry 99 97 98 05/03/20 14:00 05/03/20 14:13 05/03/20 16:00 Temperature 37.1 C 37.2 C Pulse Rate 71 73 79 Respiratory Rate 16 21 H Blood Pressure 95/46 L 93/51 L Pulse Oximetry 98 96 99 05/03/20 18:00 05/03/20 19:42 05/03/20 19:56 Temperature Pulse Rate 77 74 72 Respiratory Rate 25 H 19 19 Blood Pressure 103/51 L Pulse Oximetry 97 05/03/20 20:00 05/03/20 22:00 05/03/20 23:52 Temperature 37.1 C 37.1 C Pulse Rate 80 65 65 Respiratory Rate 23 H 18 Blood Pressure 109/48 L 99/49 L 102/50 L Pulse Oximetry 98 100 05/04/20 00:00 05/04/20 00:15 05/04/20 00:30 Temperature 36.4 C Pulse Rate 63 59 L 57 L Respiratory Rate 18 Blood Pressure 98/47 L 92/45 L 89/42 L Pulse Oximetry 99 05/04/20 00:45 05/04/20 00:48 05/04/20 01:00 Temperature Pulse Rate 56 L 60 60 Respiratory Rate Blood Pressure 85/42 L 101/44 L 82/49 L Pulse Oximetry 05/04/20 01:15 05/04/20 01:30 05/04/20 01:45 Temperature Pulse Rate 61 63 63 Respiratory Rate Blood Pressure 103/44 L 103/50 L 99/49 L Pulse Oximetry 05/04/20 01:49 05/04/20 02:00 05/04/20 02:30 Temperature 37.1 C Pulse Rate 66 63 62 Respiratory Rate 20 15 16 Blood Pressure 92/56 L 90/56 L Pulse Oximetry 99 100 05/04/20 03:34 05/04/20 04:00 05/04/20 04:37 Temperature 36.6 C Pulse Rate 65 67 Respiratory Rate 20 16 Blood Pressure 89/42 L 93/41 L Pulse Oximetry 99 05/04/20 05:46 05/04/20 05:47 05/04/20 08:00 Temperature 36.5 C Pulse Rate 65 64 66 Respiratory Rate 16 16 Blood Pressure 98/45 L 84/42 L Pulse Oximetry 98 99 05/04/20 08:23 Temperature Pulse Rate 69 Respiratory Rate 18 Blood Pressure Pulse Oximetry Intake/Output Intake/Output: Intake & Output 05/01/20 05/02/20 05/03/20 05/04/20 23:59 23:59 23:59 23:59 Intake Total 7419 141 6647 60 Output Total 6440 1576 635 2100 [facility] -[phone] Meds/Results Medications: Active Medications Generic Name D
--- NOTE | 2020-05-04 11:57 | PM.PNNEP ---
Progress Note: A&P Assessment and Plan (1) CKD (chronic kidney disease), stage V: Code(s): N18.5 - Chronic kidney disease, stage 5 Status: Acute Assessment and Plan: The patient has chronic kidney disease. This is due to diabetes, hypertension, and vascular disease. (2) BARRON (acute kidney injury): Code(s): N17.9 - Acute kidney failure, unspecified Status: Acute Assessment and Plan: The patient has acute kidney injury on top of severe chronic kidney disease. Still not much urine output. [place] catheter was removed because urine output was low. I do not think we will take fluid off today. We will see how the numbers do. (3) Suspected COVID-19 virus infection: Code(s): Z20.828 - Contact with and (suspected) exposure to other viral communicable diseases Status: Acute Assessment and Plan: Because of the pneumonia and severity of her illness she is getting a COVID-19 test. This is negative. (4) Encephalopathy: Code(s): G93.40 - Encephalopathy, unspecified Status: Acute Assessment and Plan: The patient is very weak. It is hard to assess her mental status right now. (5) Sepsis: Code(s): A41.9 - Sepsis, unspecified organism Status: Deleted Assessment and Plan: The patient seems to have septic syndrome. Urine culture is positive. blood negative. (6) Metabolic acidosis: Code(s): E87.2 - Acidosis Status: Acute Assessment and Plan: Resolved (7) Pneumonia: Code(s): J18.9 - Pneumonia, unspecified organism Status: Acute Assessment and Plan: The patient has evidence on chest x-ray. She is getting antibiotics. (8) Anemia: Code(s): D64.9 - Anemia, unspecified Status: Acute Assessment and Plan: She is anemic at baseline. Hemoglobin bouncing around 8.0 On EPO 3 times a week. Very good reticulocyte count suggesting good response to EPO (9) Diabetes: Code(s): E11.9 - Type 2 diabetes mellitus without complications Status: Acute Assessment and Plan: She is currently on insulin sliding scale Subjective Date/time seen: 05/04/20 11:57 Interval history: Patient is awake now. Extubated. Off pressors. She had dialysis last night. Her blood pressure was very low and so she was taken off early. Overnight her blood pressures range between 80 and 100. She is on midodrine. Review of Systems Review of Systems: ROS unobtainable: Yes unobtainable due to endotracheal tube Exam Narrative: Exam Narrative: WDWN in NAD skin no rash or subcu nodules head ncat lungs mildly coarse at the bases cor reg no rub or gallop abd BS+ no tenderness and soft ext trace edema. Objective Data Vital Signs Vital Signs: Vital Signs - 24 hr 05/03/20 12:00 05/03/20 13:37 05/03/20 14:00 Temperature 37.1 C Pulse Rate 74 74 71 Respiratory Rate 18 14 16 Blood Pressure 103/52 L 95/46 L Pulse Oximetry 97 98 98 05/03/20 14:13 05/03/20 16:00 05/03/20 18:00 Temperature 37.2 C Pulse Rate 73 79 77 Respiratory Rate 21 H 25 H Blood Pressure 93/51 L 103/51 L Pulse Oximetry 96 99 97 05/03/20 19:42 05/03/20 19:56 05/03/20 20:00 Temperature 37.1 C Pulse Rate 74 72 80 Respiratory Rate 19 19 23 H Blood Pressure 109/48 L Pulse Oximetry 98 05/03/20 22:00 05/03/20 23:52 05/04/20 00:00 Temperature 37.1 C 36.4 C Pulse Rate 65 65 63 Respiratory Rate 18 18 Blood Pressure 99/49 L 102/50 L 98/47 L Pulse Oximetry 100 99 05/04/20 00:15 05/04/20 00:30 05/04/20 00:45 Temperature Pulse Rate 59 L 57 L 56 L Respiratory Rate Blood Pressure 92/45 L 89/42 L 85/42 L Pulse Oximetry 05/04/20 00:48 05/04/20 01:00 05/04/20 01:15 Temperature Pulse Rate 60 60 61 Respiratory Rate Blood Pressure 101/44 L 82/49 L 103/44 L Pulse Oximetry 05/04/20 01:30 05/04/20 01:45 05/04/20 01:49 Temperature
[2020-05-04 12:38] LABS: Procalcitonin 1.78 ng/mL (<0.10)
[2020-05-04] MEDS: CALCIUM ACETATE 667 MG TABLET FEED TUBE ×2 (12:45→18:25)
[2020-05-04 13:03] LABS: Glucose Point of Care 77 (65-105)
--- NOTE | 2020-05-04 14:40 | WPDGIPROGNO ---
Progress Note: A&P Additional Plan Patient now extubated. Remains very weak. Tube feedings via NG tube. Physical exam reveal HEENT exam to be anicteric. Lungs with few rhonchi. Heart without murmur. Abdomen is soft with no localized tenderness. No organomegaly evident. Labs reveal WBC 21.7 K, hemoglobin 8.3, hematocrit 27.8 stable. Total bilirubin 0.3, AST 30, AST 60, alk-phos 170. Impression 1. Anemia likely multifactorial. No active GI bleed at this time. We will continue to treat for probable stress gastritis. Continue PPI. Monitor hemoglobin daily. 2. Elevated LFTs. Likely related to sepsis. Gradual improvement of LFTs identified. No additional invasive testing planned at this time. Will continue to monitor LFTs. 3. Nutrition via NG tube will continue until we are certain she can swallow safely. Subjective Date/time seen: 05/04/20 14:40 Objective Data Vital Signs Vital Signs: Vital Signs - 24 hr 05/03/20 16:00 05/03/20 18:00 05/03/20 19:42 Temperature 37.2 C Pulse Rate 79 77 74 Respiratory Rate 21 H 25 H 19 Blood Pressure 93/51 L 103/51 L Pulse Oximetry 99 97 05/03/20 19:56 05/03/20 20:00 05/03/20 22:00 Temperature 37.1 C 37.1 C Pulse Rate 72 80 65 Respiratory Rate 19 23 H 18 Blood Pressure 109/48 L 99/49 L Pulse Oximetry 98 100 05/03/20 23:52 05/04/20 00:00 05/04/20 00:15 Temperature 36.4 C Pulse Rate 65 63 59 L Respiratory Rate 18 Blood Pressure 102/50 L 98/47 L 92/45 L Pulse Oximetry 99 05/04/20 00:30 05/04/20 00:45 05/04/20 00:48 Temperature Pulse Rate 57 L 56 L 60 Respiratory Rate Blood Pressure 89/42 L 85/42 L 101/44 L Pulse Oximetry 05/04/20 01:00 05/04/20 01:15 05/04/20 01:30 Temperature Pulse Rate 60 61 63 Respiratory Rate Blood Pressure 82/49 L 103/44 L 103/50 L Pulse Oximetry 05/04/20 01:45 05/04/20 01:49 06/06/20 02:00 Temperature Pulse Rate 63 66 63 Respiratory Rate 20 15 Blood Pressure 99/49 L 92/56 L Pulse Oximetry 99 05/04/20 02:30 05/04/20 03:34 05/04/20 04:00 Temperature 37.1 C 36.6 C Pulse Rate 62 65 67 Respiratory Rate 16 20 16 Blood Pressure 90/56 L 89/42 L Pulse Oximetry 100 99 05/04/20 04:37 05/04/20 05:46 05/04/20 05:47 Temperature Pulse Rate 65 64 Respiratory Rate 16 Blood Pressure 93/41 L 98/45 L Pulse Oximetry 98 05/04/20 08:00 05/04/20 08:23 05/04/20 10:00 Temperature 36.5 C Pulse Rate 68 69 65 Respiratory Rate 16 18 19 Blood Pressure 84/42 L 103/47 L Pulse Oximetry 99 100 05/04/20 12:00 05/04/20 14:34 Temperature 36.4 C L Pulse Rate 75 68 Respiratory Rate 19 20 Blood Pressure 96/46 L Pulse Oximetry 97 Intake/Output Intake/Output: Intake & Output 05/01/20 05/02/20 05/03/20 05/04/20 23:59 23:59 23:59 23:59 Intake Total 2341 154 7830 60 Output Total 3200 3150 635 8010 [facility] -[phone] Meds/Results Medications: Active Medications Generic Name Dose Route Start Last Admin Trade Name Freq PRN Reason Stop Dose Admin Albuterol 2.5 mg 04/26/20 14:11 Albuterol Sulf Neb 2.5mg/0.5ml INHALATION Q4H PRN Wheezing Aspirin 325 mg 04/30/20 08:00 05/04/20 07:50 Aspirin FEED TUBE 325 mg DAILY@0800 CYNTHIA Administration Atorvastatin Calcium 20 mg 04/30/20 09:00 05/04/20 07:50 Lipitor FEED TUBE 20 mg DAILY CYNTHIA Administration Calcium Acetate 667 mg 04/27/20 13:00 05/04/20 12:45 Phoslo FEED TUBE 667 mg TID CYNTHIA Administration Dextrose 12.5 gm 04/27/20 09:52 05/04/20 05:43 Dextrose 50% Syringe IV PUSH 12.5 gm PRN PRN Administration Hypoglycemia Protocol Epoetin Mike 10,000 units 04/27/20 11:55 05/02/20 11:08 Epogen IV PUSH 10,000 units TUTA CYNTHIA Administration Glucagon 1 mg 04/27/20 09:52 Glucagon For Inj IM PRN PRN Hypoglycemia Protocol Glucose 15 gm 04/27/20 09:52 Glutose 15 PO PRN PRN Hypoglycemia Protocol
--- NOTE | 2020-05-04 15:12 | PC.NURSE ---
Transferred pt to room 242 at 1505 from ICU 8. Gave report to Latosha SOTO. Reviewed belonging list. All items went with pt.
--- NOTE | 2020-05-04 15:33 | PC.NURSE ---
Received patient from ICU via bed with ICU staff. Patient settled into room. Awake and alert. States she is in a [facility] emergency room. Reoriented patient to location. Oriented to person. Disoriented to time. Patient c/o her legs hurting . SCDs in place. TF started - Nephro at 20 cc/hr. Suction set up in room. Patient has O2 on at 2 liters per nasal cannula. No distress noted.
--- NOTE | 2020-05-04 15:40 | PCSTNOTE ---
05/04/20: Pt. seen for bedside swallow evaluation after recent extubation (05/03/20). Pt. presents with significant global weakness. Trials of thin via spoon, cup, and straw and puree via spoon were presented with no overt s/s aspriation. However, given small bites/sips (~1/2 tsp), pt. utilized 3-4 swallows per trial - suspect laryngeal residue, putting the pt. at increased risk for aspiration. Possibility of silent aspiration. Recommend pt. remain NPO and completion of MBS in ~48 hours, or when pt. strength increases. Recommend the pt. receive ice chips for comfort following oral care.
[2020-05-04 16:30] LABS: Glucose Point of Care 75 (65-105)
--- NOTE | 2020-05-04 17:39 | PM.IMPN ---
Progress Note: A&P Assessment and Plan (1) Acute respiratory failure: Qualifiers: Respiratory failure complication: hypoxia Qualified Code(s): J96.01 - Acute respiratory failure with hypoxia Code(s): J96.00 - Acute respiratory failure, unspecified whether with hypoxia or hypercapnia Status: Acute Assessment and Plan: 69-year-old female with history of coronary artery disease and chronic kidney disease now on hemodialysis due to diabetes and hypertension, patient was found unresponsive at home EMS was called patient was and respiratory distress and attempt to intubation was unsuccessful in the field but successfully intubated mechanically ventilated here. Thought secondary to fluid overload and pneumonia. Was extubated 05/03 (2) Pneumonia: Code(s): J18.9 - Pneumonia, unspecified organism Status: Acute Assessment and Plan: Atelectasis versus pneumonia noted on chest CT. azithromycin and rocephin switched to iv doxycycline and rocephin due to amiodarone drip give earlier sputum and blood culture pending so far negative pt had thoracentesis for pleural effusion with no evidence of infection (3) Urinary tract infection: Code(s): N39.0 - Urinary tract infection, site not specified Status: Acute Assessment and Plan: Urine culture is growing E coli pansensitive continue Rocephin (4) Metabolic acidosis: Code(s): E87.2 - Acidosis Status: Acute Assessment and Plan: Resolved thought secondary to renal failure and/or infection (5) Acute kidney injury superimposed on chronic kidney disease: Code(s): N17.9 - Acute kidney failure, unspecified; N18.9 - Chronic kidney disease, unspecified Status: Acute Assessment and Plan: Likely multifactorial in etiology to include to include possible ATN from sepsis, hypovolemia due to anemia +/- 3rd spacing. Pt has been on dialysis since wednesday. (6) Type 2 diabetes mellitus: Code(s): E11.9 - Type 2 diabetes mellitus without complications Status: Acute Assessment and Plan: Initiate sliding scale insulin, Accu-Cheks, and hypoglycemic protocol. (7) Congestive heart failure: Onset Date: ~12/2019 Code(s): I50.9 - Heart failure, unspecified Status: Acute Assessment and Plan: Patient with mixed systolic and diastolic congestive heart failure. Ischemic cardiomyopathy with improved ejection fraction to 50 to 55% on echo in December 2019. Pt had some atrial tachycardia was placed on amiodarone drip earlier in the week off amiodarone now. (8) Acute on chronic anemia: Code(s): D64.9 - Anemia, unspecified Status: Acute Assessment and Plan: . Seen by GI treat for gastritis. with PPI Subjective Date/time seen: 05/04/20 17:39 Interval history: Date of visit 05/04 pt has history of coronary artery disease status post three-vessel CABG, aortic stenosis status post bioprosthetic aortic valve replacement, chronic kidney disease nearing dialysis with maturing right upper extremity fistula, hypertension, chronic anemia, and type 2 diabetes mellitus. Covid is negative. Extubated 05/03. ID and nephrology on the case. Pt receiving dialysis, pt had thoracentesis for pleural effusion, ongoing sepsis, respiratory failure, kidney failure. Critically unwell multiple systems effected. Exam Narrative: Exam Narrative: Blood pressure 106/40 pulse is 72 saturating 98% on 2 L nasal cannula afebrile Pupils right sclera anicteric Mo
[2020-05-04 21:55] LABS: Glucose Point of Care 75 (65-105)
[2020-05-05] VITALS (29 sets, daily range): BP systolic 92–130; BP diastolic 37–96; PULSE 65–88; RESP 16–20; TEMP 36–37.1; O2SAT 93–100
[2020-05-05 01:21] LABS: Amylase, Pleural Fluid <10 U/L
[2020-05-05] MEDS: IPRATROPIUM BR 0.02% INH SOLN 0.5 MG/2.5 ML VIAL INHALATION ×4 (01:39→20:44)
[2020-05-05] MEDS: LEVALBUTEROL NEB 1.25 MG/3 ML 0.63 MG INHALATION ×4 (01:39→20:44)
[2020-05-05 02:07] LABS: Glucose Point of Care 72 (65-105)
[2020-05-05] MEDS: HEPARIN SODIUM 5,000 UNITS/ML VIAL 5000 UNITS SUB-Q ×3 (05:04→21:33)
[2020-05-05 05:35] LABS: Hematocrit 26.4 % (37.0-47.0); Hemoglobin 8.2 g/dL (12.0-15.0); Mean Corpuscular HGB Conc 31.1 g/dl (32-36); Mean Corpuscular Hemoglobin 29.3 pg (26-34); Mean Corpuscular Volume 94.3 fl (80-100); Mean Platelet Volume 11.2 fl (7.4-10.4); Platelet Count Result 190 k/mm3 (150-375); Red Cell Distribution Width 17.2 % (11.5-14.5)
[2020-05-05 05:35] LABS: Glucose Point of Care 85 (65-105)
[2020-05-05 05:59] LABS: Blood Urea Nitrogen 90 mg/dL (7-17); Calcium 7.1 mg/dL (8.4-10.2); Carbon Dioxide 29 mmol/L (22-30); Chloride 91 mmol/L (98-107); Estimated CRCL calculation 10 ml/min; Estimated Glomerular Filt Rate 8; Glucose 79 mg/dL (65-105); Phosphorus 7.5 mg/dL (2.5-4.5); Potassium 4.3 mmol/L (3.4-5.0); Sodium 130 mmol/L (137-145)
[2020-05-05 08:05] LABS: Glucose Point of Care 76 (65-105)
--- NOTE | 2020-05-05 08:05 | PC.NURSE ---
Patient to dialysis per bed.
--- NOTE | 2020-05-05 09:56 | PM.PNNEP ---
Progress Note: A&P Assessment and Plan (1) CKD (chronic kidney disease), stage V: Code(s): N18.5 - Chronic kidney disease, stage 5 Status: Acute Assessment and Plan: The patient has chronic kidney disease. This is due to diabetes, hypertension, and vascular disease. (2) BARRON (acute kidney injury): Code(s): N17.9 - Acute kidney failure, unspecified Status: Acute Assessment and Plan: The patient has acute kidney injury on top of severe chronic kidney disease. Still not much urine output. No sign of recovery (3) Suspected COVID-19 virus infection: Code(s): Z20.828 - Contact with and (suspected) exposure to other viral communicable diseases Status: Acute Assessment and Plan: Because of the pneumonia and severity of her illness she is getting a COVID-19 test. This is negative. (4) Encephalopathy: Code(s): G93.40 - Encephalopathy, unspecified Status: Acute Assessment and Plan: The patient is very weak. Mental status seems improved. (5) Sepsis: Code(s): A41.9 - Sepsis, unspecified organism Status: Deleted Assessment and Plan: The patient seems to have septic syndrome. Urine culture is positive. blood negative. Resolved (6) Metabolic acidosis: Code(s): E87.2 - Acidosis Status: Acute Assessment and Plan: Resolved (7) Pneumonia: Code(s): J18.9 - Pneumonia, unspecified organism Status: Acute Assessment and Plan: The patient has evidence on chest x-ray. She is off antibiotics now. (8) Anemia: Code(s): D64.9 - Anemia, unspecified Status: Acute Assessment and Plan: She is anemic at baseline. Hemoglobin bouncing around 8.0 On EPO 3 times a week. (9) Diabetes: Code(s): E11.9 - Type 2 diabetes mellitus without complications Status: Acute Assessment and Plan: She is currently on insulin sliding scale Subjective Date/time seen: 05/05/20 09:56 Interval history: Patient is awake now. Moved out of the ICU yesterday. She wants breakfast. She is on dialysis and tolerating it well. She was seen at 9 45 a.m. Review of Systems Cardiovascular: Cardiovascular: Reports no additional cardiovascular complaints Respiratory: Respiratory: Reports no additional respiratory complaints Gastrointestinal: Gastrointestinal: Reports no additional gastrointestinal complaints Genitourinary: Genitourinary: Reports no additional female genitourinary complaints Exam Narrative: Exam Narrative: WDWN in NAD skin no rash or subcu nodules head ncat lungs mildly coarse at the bases cor reg no rub or gallop abd BS+ no tenderness and soft ext trace edema. Objective Data Vital Signs Vital Signs: Vital Signs - 24 hr 05/04/20 10:00 05/04/20 12:00 05/04/20 14:34 Temperature 36.4 C L Pulse Rate 65 75 68 Respiratory Rate 19 19 20 Blood Pressure 103/47 L 96/46 L Pulse Oximetry 100 97 05/04/20 14:41 05/04/20 15:45 05/04/20 17:54 Temperature 36.6 C 36.7 C Pulse Rate 67 71 71 Respiratory Rate 16 24 H 18 Blood Pressure 105/39 L 99/47 L Pulse Oximetry 98 99 05/04/20 20:00 05/04/20 20:28 05/04/20 20:29 Temperature 36.7 C Pulse Rate 71 63 63 Respiratory Rate 22 H 16 Blood Pressure 109/45 L Pulse Oximetry 100 95 05/05/20 00:00 05/05/20 01:40 05/05/20 01:51 Temperature 37.1 C Pulse Rate 79 66 65 Respiratory Rate 20 16 Blood Pressure 94/37 L Pulse Oximetry 98 05/05/20 06:00 05/05/20 07:40 05/05/20 07:50 Temperature 36.4 C Pulse Rate 74 81 76 Respiratory Rate 20 16 18 Blood Pressure 94/40 L Pulse Oximetry 98 93 Intake/Output Intake/Output: Intake & Output 05/02/20 05/03/20 05/04/20 05/05/20 23:59 23:59 23:59 23:59 Intake Total 921 1482 60 Output Total 3150 635 2100 1 Balance -2229 847 -2040 -1 Meds/Results Medications: Active Medications Generic Name Dose Route St
--- NOTE | 2020-05-05 11:18 | PM.PNCARD ---
Progress Note: A&P Additional Plan Ischemic cardiomyopathy, symptomatic lead better and no longer volume overloaded with dialysis. Hemodynamics still would not be reasonable for institution of any specific medication for congestive heart failure. Kishan inhibitors and beta-blockers would likely be poorly tolerated as blood pressure is marginal Subjective Date/time seen: Date of service: 05/05/20 11:18 Interval history: 69-year-old patient with relatively severe ischemic cardiomyopathy also with end-stage renal disease and dependent on dialysis. Patient seen in the dialysis center no specific cardiac complaints Exam Const: General: comfortable and no acute distress HENMT: Mouth: Yes dry mucous membranes Eyes: Sclera: sclerae normal Neck: Neck: supple and no JVD Thyroid: thyroid normal Resp: Effort & Inspection: normal respiratory effort Auscultation: clear to auscultation bilaterally Cardio: Rate: regular rate Rhythm: regular rhythm Other: PMI enlarged and laterally displaced GI: Auscultation: normal bowel sounds Skin: General skin exam: normal color Neuro: Cognition (Neuro): normal cognition Other: Rather weak but more responsive than yesterday Objective Data Vital Signs Vital Signs: Vital Signs - 24 hr 05/04/20 12:00 05/04/20 14:34 05/04/20 14:41 Temperature 36.4 C L Pulse Rate 75 68 67 Respiratory Rate 19 20 16 Blood Pressure 96/46 L Pulse Oximetry 97 05/04/20 15:45 05/04/20 17:54 05/04/20 20:00 Temperature 36.6 C 36.7 C 36.7 C Pulse Rate 71 71 71 Respiratory Rate 24 H 18 22 H Blood Pressure 105/39 L 99/47 L 109/45 L Pulse Oximetry 98 99 100 05/04/20 20:28 05/04/20 20:29 05/05/20 00:00 Temperature 37.1 C Pulse Rate 63 63 79 Respiratory Rate 16 20 Blood Pressure 94/37 L Pulse Oximetry 95 98 05/05/20 01:40 05/05/20 01:51 05/05/20 06:00 Temperature 36.4 C Pulse Rate 66 65 74 Respiratory Rate 16 20 Blood Pressure 94/40 L Pulse Oximetry 98 05/05/20 07:40 05/05/20 07:50 05/05/20 08:30 Temperature Pulse Rate 81 76 79 Respiratory Rate 16 18 Blood Pressure 118/51 L Pulse Oximetry 93 Intake/Output Intake/Output: Intake & Output 06/04/20 06/05/20 06/06/20 06/07/20 23:59 23:59 23:59 23:59 Intake Total 921 1482 60 Output Total 3150 635 2100 1 Balance -2229 847 -2040 -1 Meds/Results Medications: Active Medications Generic Name Dose Route Start Last Admin Trade Name Freq PRN Reason Stop Dose Admin Albuterol 2.5 mg 04/26/20 14:11 Albuterol Sulf Neb 2.5mg/0.5ml INHALATION Q4H PRN Wheezing Aspirin 325 mg 04/30/20 08:00 05/04/20 07:50 Aspirin FEED TUBE 325 mg DAILY@0800 CYNTHIA Administration Atorvastatin Calcium 20 mg 04/30/20 09:00 05/04/20 07:50 Lipitor FEED TUBE 20 mg DAILY CYNTHIA Administration Calcium Acetate 667 mg 04/27/20 13:00 05/04/20 18:25 Phoslo FEED TUBE 667 mg TID CYNTHIA Administration Dextrose 12.5 gm 04/27/20 09:52 05/04/20 05:43 Dextrose 50% Syringe IV PUSH 12.5 gm PRN PRN Administration Hypoglycemia Protocol Epoetin Mike 10,000 units 04/27/20 11:55 05/02/20 11:08 Epogen IV PUSH 10,000 units TUTHSA CYNTHIA Administration Glucagon 1 mg 04/27/20 09:52 Glucagon For Inj IM PRN PRN Hypoglycemia Protocol Glucose 15 gm 04/27/20 09:52 Glutose 15 PO PRN PRN Hypoglycemia Protocol Heparin Sodium (Porcine) 5,000 units 05/04/20 14:00 05/05/20 05:04 Heparin Sodium SUB-Q 5,000 units Q8HR CYNTHIA Administration Dextrose 1,000 mls @ 100 mls/hr 04/27/20 09:52 Dextrose 5% 1,000 Ml IVPB PRN PRN Hypoglycemia Protocol Insulin Aspart 3 - 6 units 04/28/20 13:00 05/05/20 08:18 Novolog SUB-Q Not Given Q4HR CYNTHIA Protocol Insulin Glargine 24 units 05/04/20 09:00 05/04/20 09:52 Lantus SUB-Q 24 units DAILY CYNTHIA Administration Ipratropium [place] 0.5 mg 04/26/20 14:10 Atro
--- NOTE | 2020-05-05 12:00 | PC.NURSE ---
Patient return from dialysis.
[2020-05-05] MEDS: ASPIRIN 325 MG TABLET FEED TUBE (12:24)
[2020-05-05] MEDS: CALCIUM ACETATE 667 MG TABLET FEED TUBE ×2 (12:24→17:28)
[2020-05-05] MEDS: MIDODRINE HCL 10 MG TABLET FEED TUBE ×3 (12:24→17:28)
[2020-05-05] MEDS: ATORVASTATIN 20 MG TABLET FEED TUBE (12:25)
[2020-05-05] MEDS: PANTOPRAZOLE SODIUM IV 40 MG VIAL IV PUSH (12:25)
[2020-05-05] MEDS: TOLNAFTATE 1% POWDER 45 GM BTL 1 APPLIC TOPICAL ×2 (12:25→21:33)
[2020-05-05 12:35] LABS: Glucose Point of Care 83 (65-105)
--- NOTE | 2020-05-05 12:37 | PM.IMPN ---
Progress Note: A&P Assessment and Plan (1) Acute respiratory failure: Qualifiers: Respiratory failure complication: hypoxia Qualified Code(s): J96.01 - Acute respiratory failure with hypoxia Code(s): J96.00 - Acute respiratory failure, unspecified whether with hypoxia or hypercapnia Status: Acute Assessment and Plan: 69-year-old female with history of coronary artery disease and chronic kidney disease now on hemodialysis due to diabetes and hypertension, patient was found unresponsive at home ,EMS was called ,patient was in respiratory distress and attempted intubation was unsuccessful in the field but successfully intubated mechanically ventilated here. Thought secondary to fluid overload and pneumonia. Was extubated 05/03 (2) Pneumonia: Code(s): J18.9 - Pneumonia, unspecified organism Status: Acute Assessment and Plan: Atelectasis versus pneumonia noted on chest CT. azithromycin and rocephin switched to iv doxycycline and rocephin due to amiodarone drip give earlier(finished 9 day course 05/04) sputum and blood culture negative pt had thoracentesis for pleural effusion with no evidence of infection (3) Urinary tract infection: Code(s): N39.0 - Urinary tract infection, site not specified Status: Acute Assessment and Plan: Urine culture is growing E coli pansensitive continue Rocephin and finished 05/04 (4) Metabolic acidosis: Code(s): E87.2 - Acidosis Status: Acute Assessment and Plan: Resolved thought secondary to renal failure and/or infection (5) Acute kidney injury superimposed on chronic kidney disease: Code(s): N17.9 - Acute kidney failure, unspecified; N18.9 - Chronic kidney disease, unspecified Status: Acute Assessment and Plan: Likely multifactorial in etiology to include to include possible ATN from sepsis, hypovolemia due to anemia +/- 3rd spacing. Pt has been on now (6) Type 2 diabetes mellitus: Code(s): E11.9 - Type 2 diabetes mellitus without complications Status: Acute Assessment and Plan: Initiate sliding scale insulin, Accu-Cheks, and hypoglycemic protocol.A1c 8.2 , had been on Lantus 24U qd but will decrease to 10 U qd with falling BS (7) Congestive heart failure: Onset Date: ~12/2019 Code(s): I50.9 - Heart failure, unspecified Status: Acute Assessment and Plan: Patient with mixed systolic and diastolic congestive heart failure. Ischemic cardiomyopathy with improved ejection fraction to 50 to 55% on echo in December 2019. Pt had some atrial tachycardia was placed on amiodarone drip earlier in the week off amiodarone now. (8) Acute on chronic anemia: Code(s): D64.9 - Anemia, unspecified Status: Acute Assessment and Plan: . Seen by GI treat for gastritis. with PPI hgb stable 8.2 Subjective Date/time seen: 05/05/20 12:37 Interval history: Date of visit 05/05 pt has history of coronary artery disease status post three-vessel CABG, aortic stenosis status post bioprosthetic aortic valve replacement, chronic kidney disease now on dialysis(this admission) with maturing right upper extremity fistula, hypertension, chronic anemia, and type 2 diabetes mellitus. Covid is negative. Extubated 05/03. ID and nephrology on the case. Pt receiving dialysis this am, pt had thoracentesis for pleural effusion, ongoing sepsis, respiratory failure, kidney failure. Asking to eat. Exam Narrative: Exam Narrative: Blood pressur
--- NOTE | 2020-05-05 16:37 | PC.NURSE ---
Patient received 0900 medications late this morning due to her being in dialysis. Administered after dialysis.
[2020-05-05 17:36] LABS: Glucose Point of Care 104 (65-105)
[2020-05-05 22:11] LABS: Glucose Point of Care 115 (65-105)
[2020-05-06] VITALS (13 sets, daily range): BP systolic 103–122; BP diastolic 42–51; PULSE 75–84; RESP 16–20; TEMP 36.3–36.7; O2SAT 93–96
[2020-05-06] MEDS: IPRATROPIUM BR 0.02% INH SOLN 0.5 MG/2.5 ML VIAL INHALATION ×4 (01:23→19:51)
[2020-05-06] MEDS: LEVALBUTEROL NEB 1.25 MG/3 ML 0.63 MG INHALATION ×4 (01:23→19:51)
[2020-05-06] MEDS: HEPARIN SODIUM 5,000 UNITS/ML VIAL 5000 UNITS SUB-Q ×3 (05:23→20:29)
[2020-05-06 06:14] LABS: Blood Urea Nitrogen 50 mg/dL (7-17); Calcium 7.3 mg/dL (8.4-10.2); Carbon Dioxide 32 mmol/L (22-30); Chloride 89 mmol/L (98-107); Estimated CRCL calculation 16 ml/min; Estimated Glomerular Filt Rate 14; Glucose 82 mg/dL (65-105); Potassium 4.2 mmol/L (3.4-5.0); Sodium 132 mmol/L (137-145)
--- NOTE | 2020-05-06 07:19 | WPDGIPROGNO ---
Progress Note: A&P Additional Plan Patient alert. Now on the floor. Extubated over the weekend. Tolerating small amounts of oral intake. She she denies abdominal pain. Physical exam reveals her to be alert. Vital signs are stable. She is an icteric. Lungs are clear. Heart without murmur. Abdomen is obese bowel sounds are present soft nontender. Labs reveal WBC down to 16 K, hemoglobin 8.2 matter crit 26.4 stable and at her baseline. BUN 50 creatinine 3.3, total bilirubin 0.3, AST 30, ALT 60. Alk-phos 170. Impression 1. Resolving sepsis. [place] to be related to pneumonia. UTI. 2. Anemia. This is chronic. Patient now at baseline. Likely related to chronic kidney disease. Stool for occult blood was identified in the ICU. This is suspected to be secondary stress gastritis. Plan is to continue proton pump inhibitor. I would defer invasive testing until more stable. Perhaps an EGD at a later date. 3. Elevated LFTs. Likely related to sepsis. These are resolving slowly. Four. Chronic disease kidney disease. Patient remains on dialysis. Likely accounts for underlying anemia. Nephrology service following. Subjective Date/time seen: 05/06/20 07:19 Objective Data Vital Signs Vital Signs: Vital Signs - 24 hr 05/05/20 07:40 05/05/20 07:50 05/05/20 08:16 Temperature 36.3 C L Pulse Rate 81 76 77 Respiratory Rate 16 18 18 Blood Pressure 113/50 L Pulse Oximetry 93 05/05/20 08:30 05/05/20 08:45 05/05/20 09:00 Temperature Pulse Rate 79 78 84 Respiratory Rate Blood Pressure 118/51 L 92/45 L 107/54 L Pulse Oximetry 05/05/20 09:15 05/05/20 09:30 05/05/20 09:45 Temperature Pulse Rate 83 86 86 Respiratory Rate Blood Pressure 111/52 L 112/55 L 103/96 H Pulse Oximetry 05/05/20 10:00 05/05/20 10:15 05/05/20 10:30 Temperature Pulse Rate 81 83 84 Respiratory Rate Blood Pressure 97/45 L 94/46 L 110/53 L Pulse Oximetry 05/05/20 10:45 05/05/20 11:00 05/05/20 11:15 Temperature Pulse Rate 86 88 82 Respiratory Rate Blood Pressure 110/49 L 130/59 L 97/47 L Pulse Oximetry 05/05/20 11:30 05/05/20 14:00 05/05/20 14:15 Temperature 36.9 C 36.8 C Pulse Rate 85 82 87 Respiratory Rate 18 18 Blood Pressure 97/64 L 117/44 L 103/48 L Pulse Oximetry 99 100 05/05/20 14:21 05/05/20 14:23 05/05/20 14:24 Temperature Pulse Rate 86 Respiratory Rate 18 Blood Pressure Pulse Oximetry 100 95 05/05/20 14:27 05/05/20 20:44 05/05/20 20:52 Temperature Pulse Rate 84 86 84 Respiratory Rate 18 18 18 Blood Pressure Pulse Oximetry 95 05/05/20 22:00 05/06/20 01:23 05/06/20 01:30 Temperature 36.6 C Pulse Rate 78 78 80 Respiratory Rate 16 18 18 Blood Pressure 94/41 L Pulse Oximetry 97 05/06/20 06:00 Temperature 36.7 C Pulse Rate 76 Respiratory Rate 16 Blood Pressure 122/48 L Pulse Oximetry 95 Intake/Output Intake/Output: Intake & Output 05/03/20 05/04/20 05/05/20 05/06/20 23:59 23:59 23:59 23:59 Intake Total 1482 60 904 200 Output Total 635 2100 301 0 Balance 847 -2040 603 200 Meds/Results Medications: Active Medications Generic Name Dose Route Start Last Admin Trade Name Freq PRN Reason Stop Dose Admin Albuterol 2.5 mg 04/26/20 14:11 Albuterol Sulf Neb 2.5mg/0.5ml INHALATION Q4H PRN Wheezing Aspirin 325 mg 05/05/20 18:55 Aspirin PO DAILY@0800 [facility] Atorvastatin Calcium 20 mg 05/05/20 18:55 Lipitor PO DAILY [facility] Calcium Acetate 667 mg 05/05/20 18:55 Phoslo PO TID [facility] Dextrose 12.5 gm 04/27/20 09:52 05/04/20 05:43 Dextrose 50% Syringe IV PUSH 12.5 gm PRN PRN Administration Hypoglycemia Protocol Epoetin Mike 10,000 units 04/27/20 11:55 05/02/20 11:08 Epogen IV PUSH 10,000 units TUTA [facility] Administration Glucagon 1 mg 04/27/20 09:52 Glucagon For Inj IM PRN PRN Hypoglycemia Protocol Glucose 15 gm
[2020-05-06 07:56] LABS: Glucose Point of Care 74 (65-105)
[2020-05-06] MEDS: MIDODRINE HCL 10 MG TABLET PO ×3 (08:42→18:15)
[2020-05-06] MEDS: CALCIUM ACETATE 667 MG TABLET PO ×3 (08:42→18:15)
[2020-05-06] MEDS: ASPIRIN 325 MG TABLET PO (08:43)
[2020-05-06] MEDS: PANTOPRAZOLE SODIUM IV 40 MG VIAL IV PUSH (08:43)
[2020-05-06] MEDS: ATORVASTATIN 20 MG TABLET PO (08:43)
[2020-05-06] MEDS: TOLNAFTATE 1% POWDER 45 GM BTL 1 APPLIC TOPICAL ×2 (08:44→20:29)
--- NOTE | 2020-05-06 09:52 | PM.PNCARD ---
Progress Note: A&P Assessment and Plan (1) Elevated troponin: Code(s): R79.89 - Other specified abnormal findings of blood chemistry Status: Acute Assessment and Plan: -Multifactorial etiology, peaked at 1.3. Most likely demand ischemia with known underlying CAD, acute on chronic renal failure, hypotension/septic shock on pressor support. COVID-19 negative. Doubt ACS. Conservative therapy at this time, -LV systolic dysfunction as above, new cardiomyopathy, worse than a few months ago. -Dialysis for volume removal -BP too low to address w/ CHF meds -Echo 04/30/2020:Mild LV enlargement, severe LVH, severe LV systolic dysfunction, ejection fraction 25-30%; abnormal diastolic function. Abnormal G LS server manager at-5.6. Mild RV enlargement. Systolic and diastolic ventricular septal flattening consistent with elevated RV pressure and volume. Mild left atrial enlargement. moderate mitral regurgitation. Moderate prosthetic valve aortic stenosis, v max 2.8 m/sec, peak gradient 32, mean gradient 16 mmHg, DVI 0.39, JUAN M 1 cm2. Moderate to severe tricuspid regurgitation, moderate pulmonary hypertension, RVSP 53 mmHg. When compared to echocardiogram from 01/12/2020 LV systolic function is much worse. (2) Coronary artery disease involving [place] coronary artery of [place] heart: Qualifiers: Associated angina: without angina Qualified Code(s): I25.10 - Atherosclerotic heart disease of [place] coronary artery without angina pectoris Code(s): I25.10 - Atherosclerotic heart disease of [place] coronary artery without angina pectoris Status: Acute Assessment and Plan: As above, continue medical therapy aspirin, statin. Did not tolerate beta-mamie therapy 04/27/2020. (3) History of aortic valve replacement with bioprosthetic valve: Code(s): Z95.3 - Presence of xenogenic heart valve Status: Acute Assessment and Plan: Mild to moderate prosthetic stenosis on echo this admission. (4) Acute respiratory failure: Qualifiers: Respiratory failure complication: hypoxia Qualified Code(s): J96.01 - Acute respiratory failure with hypoxia Code(s): J96.00 - Acute respiratory failure, unspecified whether with hypoxia or hypercapnia Status: Acute Assessment and Plan: Pneumonia management per Critical Care Service and Dr. Saini. Mental status improving. COVID-19 negative. (5) Septic shock: Code(s): A41.9 - Sepsis, unspecified organism; R65.21 - Severe sepsis with septic shock Status: Acute Assessment and Plan: Pressors have been weaned off. Continue antibiotics and supportive care. (6) Acute kidney injury superimposed on chronic kidney disease: Code(s): N17.9 - Acute kidney failure, unspecified; N18.9 - Chronic kidney disease, unspecified Status: Acute Assessment and Plan: Volume overload 2nd CKD and possibly some CHF. Hemodialysis initiated. Appreciate Nephrology involvement. (7) Pneumonia: Code(s): J18.9 - Pneumonia, unspecified organism Status: Acute Assessment and Plan: As above. Per Critical Care Service. (8) LBBB (left bundle branch block): Code(s): I44.7 - Left bundle-branch block, unspecified Status: Acute Assessment and Plan: Chronic. (9) Atrial tachycardia: Code(s): I47.1 - Supraventricular tachycardia Status: Acute Assessment and Plan: Remains in sinus rhythm. Additional Plan Ischemic cardiomyopathy, symptomatically better and no longer volume overloaded with dialysis. Hemodynamics still would not be reasonable for institution of any specific medication for congestive heart failure. Kishan inhibitors an
[2020-05-06 11:38] LABS: Glucose Point of Care 105 (65-105)
--- NOTE | 2020-05-06 12:27 | PCDIET ---
Nutrition Follow-Up Complete: Nutrition Diagnosis: Inadequate oral intake related to mechanical ventilation as evidenced by tube feeding providing less than estimated needs. Nutrition Goal: Meet estimated nutritional needs Goal in progress. Patient consumed 25% of recorded meal on full liquid diet. RN feeding patient at time of visit. Patient reports tolerating full liquids well. Does not want to try Nepro shakes. Recommend advancing to diabetic dialysis diet once medically appropriate. Last recorded weight is 86.2 kg which is increased from last review. +I/O. Bowel Motility: +BM on 05/05/20. Labs Reviewed: BUN (50), Cr (3.3), Na (132), Alb (3.0) Meds Noted: Albuterol, Novolog, Phoslo, Lantus, Epogen, Atrovent, Protonix Additional Notes: No change in skin documented. Will continue to monitor with same goal. Nutrition Monitoring and Evaluation: Follow up in 3 days.
--- NOTE | 2020-05-06 12:39 | PM.IMPN ---
Progress Note: A&P Assessment and Plan (1) Acute respiratory failure: Qualifiers: Respiratory failure complication: hypoxia Qualified Code(s): J96.01 - Acute respiratory failure with hypoxia Code(s): J96.00 - Acute respiratory failure, unspecified whether with hypoxia or hypercapnia Status: Acute Assessment and Plan: 69-year-old female with history of coronary artery disease and chronic kidney disease now on hemodialysis due to diabetes and hypertension, patient was found unresponsive at home ,EMS was called ,patient was in respiratory distress and attempted intubation was unsuccessful in the field but successfully intubated mechanically ventilated here. Thought secondary to fluid overload and pneumonia. Was extubated 05/03 (2) Pneumonia: Code(s): J18.9 - Pneumonia, unspecified organism Status: Acute Assessment and Plan: Atelectasis versus pneumonia noted on chest CT. azithromycin and rocephin switched to iv doxycycline and rocephin due to amiodarone drip give earlier(finished 9 day course 05/04) sputum and blood culture negative pt had thoracentesis for pleural effusion with no evidence of infection (3) Urinary tract infection: Code(s): N39.0 - Urinary tract infection, site not specified Status: Acute Assessment and Plan: Urine culture is growing E coli pansensitive, Rocephin and finished 05/04 (4) Metabolic acidosis: Code(s): E87.2 - Acidosis Status: Acute Assessment and Plan: Resolved thought secondary to renal failure and/or infection (5) Acute kidney injury superimposed on chronic kidney disease: Code(s): N17.9 - Acute kidney failure, unspecified; N18.9 - Chronic kidney disease, unspecified Status: Acute Assessment and Plan: Likely multifactorial in etiology to include to include possible ATN from sepsis, hypovolemia due to anemia +/- 3rd spacing. Pt has been on now (6) Type 2 diabetes mellitus: Code(s): E11.9 - Type 2 diabetes mellitus without complications Status: Acute Assessment and Plan: Initiated sliding scale insulin, Accu-Cheks, and hypoglycemic protocol.A1c 8.2 , had been on Lantus 24U qd but decreased to 10 U qd today with falling BS, probable ss next one to 2 days (7) Congestive heart failure: Onset Date: ~12/2019 Code(s): I50.9 - Heart failure, unspecified Status: Acute Assessment and Plan: Patient with mixed systolic and diastolic congestive heart failure. Ischemic cardiomyopathy with improved ejection fraction to 50 to 55% on echo in December 2019. but now 25% EF and pressure has been too low for karen or beta mamie Pt had some atrial tachycardia was placed on amiodarone drip earlier in the week off amiodarone now. (8) Acute on chronic anemia: Code(s): D64.9 - Anemia, unspecified Status: Acute Assessment and Plan: . Seen by GI treat for gastritis. with PPI hgb stable and possible EGD later Subjective Date/time seen: 05/06/20 12:39 Interval history: Date of visit 05/06 pt has history of coronary artery disease status post three-vessel CABG, aortic stenosis status post bioprosthetic aortic valve replacement, chronic kidney disease now on dialysis(this admission) with maturing right upper extremity fistula, hypertension, chronic anemia, and type 2 diabetes mellitus. Covid is negative. Extubated 05/03. ID and nephrology on the case. Pt receiving dialysis per nephrology, pt had thoracentesis for pleural effusion,
--- NOTE | 2020-05-06 13:48 | WPDINFPN2 ---
Progress Note: A&P Assessment and Plan (1) Pneumonia: Code(s): J18.9 - Pneumonia, unspecified organism Status: Acute Assessment and Plan: 1. Lung infiltrates, due to CAP and CHF, better 2. Bioprosthetic AVR 3. CRF on HD 4. Leukocytosis, multifactorial, largely due to steroid Rx, down further 5. Pleural effusion, no infection REC Off antibiotics x 2 days. Steroids on taper. New L IJ CVC in place. Will sign off, thanks Subjective Date/time seen: 05/06/20 13:48 Interval history: no dyspnea Exam Narrative: Exam Narrative: afebrile Const: General: no acute distress Eyes: General: appearance normal, both eyes and all related structures Resp: Effort & Inspection: normal respiratory effort Auscultation: clear to auscultation bilaterally Cardio: Rate: regular rate Rhythm: regular rhythm Heart sounds: no murmurs GI: Inspection: non-distended GI Palp: Yes Soft to palpation and No Tenderness to palpation present (GI) Skin: General skin exam: no rashes or lesions noted Extrem: General: edema Objective Data Vital Signs Vital Signs: Vital Signs - 24 hr 05/05/20 14:00 05/05/20 14:15 05/05/20 14:21 Temperature 36.8 C Pulse Rate 82 87 86 Respiratory Rate 18 18 Blood Pressure 117/44 L 103/48 L Pulse Oximetry 99 100 05/05/20 14:23 05/05/20 14:24 05/05/20 14:27 Temperature Pulse Rate 84 Respiratory Rate 18 Blood Pressure Pulse Oximetry 100 95 05/05/20 20:44 05/05/20 20:52 05/05/20 22:00 Temperature 36.6 C Pulse Rate 86 84 78 Respiratory Rate 18 18 16 Blood Pressure 94/41 L Pulse Oximetry 95 97 05/06/20 01:23 05/06/20 01:30 05/06/20 06:00 Temperature 36.7 C Pulse Rate 78 80 76 Respiratory Rate 18 18 16 Blood Pressure 122/48 L Pulse Oximetry 95 05/06/20 08:16 05/06/20 08:26 Temperature Pulse Rate 75 77 Respiratory Rate 18 18 Blood Pressure Pulse Oximetry 94 Intake/Output Intake/Output: Intake & Output 05/03/20 05/04/20 05/05/20 05/06/20 23:59 23:59 23:59 23:59 Intake Total 1482 60 904 320 Output Total 635 2100 301 0 Balance 847 -2040 603 320 Meds/Results Medications: Active Medications Generic Name Dose Route Start Last Admin Trade Name Freq PRN Reason Stop Dose Admin Albuterol 2.5 mg 04/26/20 14:11 Albuterol Sulf Neb 2.5mg/0.5ml INHALATION Q4H PRN Wheezing Aspirin 325 mg 05/05/20 18:55 05/06/20 08:43 Aspirin PO 325 mg DAILY@0800 CYNTHIA Administration Atorvastatin Calcium 20 mg 05/05/20 18:55 05/06/20 08:43 Lipitor PO 20 mg DAILY CYNTHIA Administration Calcium Acetate 667 mg 05/05/20 18:55 05/06/20 13:32 Phoslo PO 667 mg TID CYNTHIA Administration Dextrose 12.5 gm 04/27/20 09:52 05/04/20 05:43 Dextrose 50% Syringe IV PUSH 12.5 gm PRN PRN Administration Hypoglycemia Protocol Epoetin Mike 10,000 units 04/27/20 11:55 05/02/20 11:08 Epogen IV PUSH 10,000 units TUTHSA CYNTHIA Administration Glucagon 1 mg 04/27/20 09:52 Glucagon For Inj IM PRN PRN Hypoglycemia Protocol Glucose 15 gm 04/27/20 09:52 Glutose 15 PO PRN PRN Hypoglycemia Protocol Heparin Sodium (Porcine) 5,000 units 05/04/20 14:00 05/06/20 13:32 Heparin Sodium SUB-Q 5,000 units Q8HR CYNTHIA Administration Dextrose 1,000 mls @ 100 mls/hr 04/27/20 09:52 Dextrose 5% 1,000 Ml IVPB PRN PRN Hypoglycemia Protocol Insulin Aspart 3 - 6 units 05/05/20 16:30 05/06/20 11:42 Novolog SUB-Q Not Given ACHS CYNTHIA Protocol Insulin Glargine 10 units 05/06/20 09:00 05/06/20 08:41 Lantus SUB-Q Not Given DAILY CYNTHIA Ipratropium [place] 0.5 mg 04/26/20 14:10 Atrovent Neb INHALATION Q4H PRN wheezing Ipratropium [place] 0.5 mg 04/30/20 14:00 05/06/20 08:16 Atrovent Neb INHALATION 0.5 mg Q6HRT CYNTHIA Administration Levalbuterol HCl 0.63 mg 04/30/20 14:00 05/06/20 08:16 Xopenex 1.
--- NOTE | 2020-05-06 14:54 | PM.PNNEP ---
Progress Note: A&P Assessment and Plan (1) CKD (chronic kidney disease), stage V: Code(s): N18.5 - Chronic kidney disease, stage 5 Status: Acute Assessment and Plan: The patient has chronic kidney disease. This is due to diabetes, hypertension, and vascular disease. (2) BARRON (acute kidney injury): Code(s): N17.9 - Acute kidney failure, unspecified Status: Acute Assessment and Plan: The patient has acute kidney injury on top of severe chronic kidney disease. Still not much urine output. No sign of recovery Probably ESRD Will get dialysis Wednesday schedule. (3) Suspected COVID-19 virus infection: Code(s): Z20.828 - Contact with and (suspected) exposure to other viral communicable diseases Status: Acute Assessment and Plan: Because of the pneumonia and severity of her illness she is getting a COVID-19 test. This is negative. (4) Encephalopathy: Code(s): G93.40 - Encephalopathy, unspecified Status: Acute Assessment and Plan: The patient is very weak. Mental status seems improved. (5) Sepsis: Code(s): A41.9 - Sepsis, unspecified organism Status: Deleted Assessment and Plan: Resolved (6) Metabolic acidosis: Code(s): E87.2 - Acidosis Status: Acute Assessment and Plan: Resolved (7) Pneumonia: Code(s): J18.9 - Pneumonia, unspecified organism Status: Acute Assessment and Plan: The patient has evidence on chest x-ray. She is off antibiotics now. (8) Anemia: Code(s): D64.9 - Anemia, unspecified Status: Acute Assessment and Plan: She is anemic at baseline. Getting Epogen with dialysis (9) Diabetes: Code(s): E11.9 - Type 2 diabetes mellitus without complications Status: Acute Assessment and Plan: She is currently on insulin sliding scale Subjective Date/time seen: 05/06/20 14:54 Interval history: Patient is awake now. No cp or sob. eating a little. generally weak. Review of Systems Cardiovascular: Cardiovascular: Reports no additional cardiovascular complaints Respiratory: Respiratory: Reports no additional respiratory complaints Gastrointestinal: Gastrointestinal: Reports no additional gastrointestinal complaints Genitourinary: Genitourinary: Reports no additional female genitourinary complaints Exam Narrative: Exam Narrative: WDWN in NAD skin no rash head ncat lungs mildly coarse at the bases cor reg no rub or gallop abd BS+ no tenderness and soft ext trace edema. Objective Data Vital Signs Vital Signs: Vital Signs - 24 hr 05/05/20 20:44 05/05/20 20:52 05/05/20 22:00 Temperature 36.6 C Pulse Rate 86 84 78 Respiratory Rate 18 18 16 Blood Pressure 94/41 L Pulse Oximetry 95 97 05/06/20 01:23 05/06/20 01:30 05/06/20 06:00 Temperature 36.7 C Pulse Rate 78 80 76 Respiratory Rate 18 18 16 Blood Pressure 122/48 L Pulse Oximetry 95 05/06/20 08:16 05/06/20 08:26 05/06/20 14:30 Temperature Pulse Rate 75 77 81 Respiratory Rate 18 18 16 Blood Pressure Pulse Oximetry 94 05/06/20 14:40 Temperature Pulse Rate 84 Respiratory Rate Blood Pressure Pulse Oximetry Intake/Output Intake/Output: Intake & Output 05/03/20 05/04/20 05/05/20 05/06/20 23:59 23:59 23:59 23:59 Intake Total 1482 60 904 320 Output Total 635 2100 301 0 Balance 847 -2040 603 320 Meds/Results Medications: Active Medications Generic Name Dose Route Start Last Admin Trade Name Freq PRN Reason Stop Dose Admin Albuterol 2.5 mg 04/26/20 14:11 Albuterol Sulf Neb 2.5mg/0.5ml INHALATION Q4H PRN Wheezing Aspirin 325 mg 05/05/20 18:55 05/06/20 08:43 Aspirin PO 325 mg DAILY@0800 [facility] Administration Atorvastatin Calcium 20 mg 05/05/20 18:55 05/06/20 08:43 Lipitor PO 20 mg DAILY [facility] Administration Calcium Acetate 667
[2020-05-06 16:39] LABS: Glucose Point of Care 117 (65-105)
[2020-05-06 20:33] LABS: Glucose Point of Care 163 (65-105)
[2020-05-07] VITALS (27 sets, daily range): BP systolic 96–141; BP diastolic 44–60; PULSE 71–91; RESP 16–18; TEMP 35.5–36.8; O2SAT 94–99
[2020-05-07] MEDS: IPRATROPIUM BR 0.02% INH SOLN 0.5 MG/2.5 ML VIAL INHALATION ×4 (03:14→20:08)
[2020-05-07] MEDS: LEVALBUTEROL NEB 1.25 MG/3 ML 0.63 MG INHALATION ×4 (03:15→20:09)
[2020-05-07] MEDS: HEPARIN SODIUM 5,000 UNITS/ML VIAL 5000 UNITS SUB-Q ×3 (05:53→20:25)
[2020-05-07 06:22] LABS: Basophils Percent Auto 0.1 % (0.2-1.2); Eosinophils Absolute Auto 0.1 K/mm3 (0-0.3); Eosinophils Percent Auto 1.2 % (0-4.4); Hematocrit 26.4 % (37.0-47.0); Hemoglobin 7.9 g/dL (12.0-15.0); Immature Granulocyte Absolute 0.05 K/mm3 (0.00-0.031); Immature Granulocyte Percent A 0.5 % (0-0.5); Lymphocytes Absolute Auto 0.67 K/mm3 (0.9-3.2); Lymphocytes Percent Auto 6.2 % (18.3-44.2); Mean Corpuscular HGB Conc 29.9 g/dl (32-36); Mean Corpuscular Hemoglobin 28.7 pg (26-34); Mean Platelet Volume 10.8 fl (7.4-10.4); Monocytes Percent Auto 9.1 % (2.6-8.5); Neutrophils Percent Auto 82.9 % (45.5-73.1); Nucleated Red Blood Cells Perc 0.3 % (0.0-0.2); Platelet Count Result 228 k/mm3 (150-375); Red Blood Count 2.75 M/mm3 (4.2-5.4); Red Cell Distribution Width 17.3 % (11.5-14.5); White Blood Count 10.9 K/mm3 (4.5-10.0)
[2020-05-07 06:32] LABS: Albumin Level 3.1 g/dL (3.5-5.1); Blood Urea Nitrogen 55 mg/dL (7-17); Calcium 7.6 mg/dL (8.4-10.2); Carbon Dioxide 30 mmol/L (22-30); Chloride 91 mmol/L (98-107); Estimated CRCL calculation 11 ml/min; Estimated Glomerular Filt Rate 9; Glucose 108 mg/dL (65-105); Phosphorus 6.3 mg/dL (2.5-4.5); Potassium 4.6 mmol/L (3.4-5.0); Sodium 133 mmol/L (137-145)
[2020-05-07 08:04] LABS: Glucose Point of Care 97 (65-105)
--- NOTE | 2020-05-07 09:10 | PC.NURSE ---
To dialysis via bed. Iv intact.
[2020-05-07] MEDS: SODIUM CHLORIDE 0.9% IV 1,000 ML 500 ML (09:15)
--- NOTE | 2020-05-07 09:38 | WPDGIPROGNO ---
Progress Note: A&P Additional Plan Patient alert this morning. Continues to be lethargic. No signs of GI blood loss reported. Starting to tolerate diet. Physical exam reveals patient to be alert. Lungs reveal a few rhonchi. Heart without murmur. Abdomen is soft nontender with no organomegaly. Labs reveal hemoglobin 7.9, hematocrit 26.4. MCV 96. This is stable. BUN 55, creatinine 4.7, AST 60, alk-phos 170, AST 30. Impression 1. Anemia. This is chronic. Patient now baseline. Likely from chronic kidney disease. 2. Elevated LFTs. [place] to be secondary to sepsis. Slowly resolving. 3. Chronic kidney disease patient on dialysis. Followed by Nephrology service 4. History of bright of prosthetic heart valve. Plan is to continue proton pump inhibitors for presumed stress gastritis. Supportive care for now. Subjective Date/time seen: 05/07/20 09:38 Objective Data Vital Signs Vital Signs: Vital Signs - 24 hr 05/06/20 14:00 05/06/20 14:30 05/06/20 14:40 Temperature 36.7 C Pulse Rate 76 81 84 Respiratory Rate 18 16 Blood Pressure 122/51 L Pulse Oximetry 96 05/06/20 19:51 05/06/20 19:55 05/06/20 20:00 Temperature Pulse Rate 75 75 78 Respiratory Rate 18 18 18 Blood Pressure Pulse Oximetry 93 93 05/06/20 20:01 05/06/20 21:52 05/07/20 03:15 Temperature 36.3 C L Pulse Rate 78 79 79 Respiratory Rate 18 20 18 Blood Pressure 103/42 L Pulse Oximetry 94 05/07/20 05:34 05/07/20 07:55 Temperature 36.1 C L Pulse Rate 83 80 Respiratory Rate 16 18 Blood Pressure 113/57 L Pulse Oximetry 96 Intake/Output Intake/Output: Intake & Output 05/04/20 05/05/20 05/06/20 05/07/20 23:59 23:59 23:59 23:59 Intake Total 60 904 320 170 Output Total 2100 301 100 200 Balance -2040 603 220 -30 Meds/Results Medications: Active Medications Generic Name Dose Route Start Last Admin Trade Name Freq PRN Reason Stop Dose Admin Albuterol 2.5 mg 04/26/20 14:11 Albuterol Sulf Neb 2.5mg/0.5ml INHALATION Q4H PRN Wheezing Aspirin 325 mg 05/05/20 18:55 05/06/20 08:43 Aspirin PO 325 mg DAILY@0800 [facility] Administration Atorvastatin Calcium 20 mg 05/05/20 18:55 05/06/20 08:43 Lipitor PO 20 mg DAILY [facility] Administration Calcium Acetate 667 mg 05/05/20 18:55 05/06/20 18:15 Phoslo PO 667 mg TID CYNTHIA Administration Dextrose 12.5 gm 04/27/20 09:52 05/04/20 05:43 Dextrose 50% Syringe IV PUSH 12.5 gm PRN PRN Administration Hypoglycemia Protocol Epoetin Mike 10,000 units 04/27/20 11:55 05/02/20 11:08 Epogen IV PUSH 10,000 units TUTHSA CYNTHIA Administration Glucagon 1 mg 04/27/20 09:52 Glucagon For Inj IM PRN PRN Hypoglycemia Protocol Glucose 15 gm 04/27/20 09:52 Glutose 15 PO PRN PRN Hypoglycemia Protocol Heparin Sodium (Porcine) 5,000 units 05/04/20 14:00 05/07/20 05:53 Heparin Sodium SUB-Q 5,000 units Q8HR CYN[facility] Administration Dextrose 1,000 mls @ 100 mls/hr 04/27/20 09:52 Dextrose 5% 1,000 Ml IVPB PRN PRN Hypoglycemia Protocol Albumin Human 50 mls @ 999 mls/hr 05/07/20 07:00 Albutein IVPB 06/06/20 07:01 Q10M PRN HYPOTENSION Insulin Aspart 3 - 6 units 05/05/20 16:30 05/06/20 20:28 Novolog SUB-Q Not Given ACHS CYNTHIA Protocol Insulin Glargine 10 units 05/06/20 09:00 05/06/20 08:41 Lantus SUB-Q Not Given DAILY [facility] Ipratropium [place] 0.5 mg 04/26/20 14:10 Atrovent Neb INHALATION Q4H PRN wheezing Ipratropium [place] 0.5 mg 04/30/20 14:00 05/07/20 07:54 Atrovent Neb INHALATION 0.5 mg Q6HRT CYNTH[facility] Administration Levalbuterol HCl 0.63 mg 04/30/20 14:00 05/07/20 07:54 Xopenex 1.25 Mg/3 Ml INHALATION 0.63 mg Q6HRT CYNTHIA Administration Midodrine 10 mg 05/05/20 18:55 05/06/20 18:15 Midodrine Hcl PO 10 mg TID [facility] Administration Pantoprazole Sodium 40 mg 05/05/20 09
--- NOTE | 2020-05-07 10:32 | PM.PNCARD ---
Progress Note: A&P Assessment and Plan (1) Elevated troponin: Code(s): R79.89 - Other specified abnormal findings of blood chemistry Status: Acute Assessment and Plan: -Multifactorial etiology, peaked at 1.3. Most likely demand ischemia with known underlying CAD, acute on chronic renal failure, hypotension/septic shock on pressor support. COVID-19 negative. Doubt ACS. Conservative therapy at this time, -LV systolic dysfunction as above, new cardiomyopathy, worse than a few months ago. -Dialysis for volume removal -blood pressure does seem a bit more stable. Will initiate low-dose lisinopril 2.5 mg daily -Echo 04/30/2020:Mild LV enlargement, severe LVH, severe LV systolic dysfunction, ejection fraction 25-30%; abnormal diastolic function. Abnormal G LS exhibits manager at-5.6. Mild RV enlargement. Systolic and diastolic ventricular septal flattening consistent with elevated RV pressure and volume. Mild left atrial enlargement. moderate mitral regurgitation. Moderate prosthetic valve aortic stenosis, v max 2.8 m/sec, peak gradient 32, mean gradient 16 mmHg, DVI 0.39, JUAN M 1 cm2. Moderate to severe tricuspid regurgitation, moderate pulmonary hypertension, RVSP 53 mmHg. When compared to echocardiogram from 01/12/2020 LV systolic function is much worse. (2) Coronary artery disease involving galena coronary artery of galena heart: Qualifiers: Associated angina: without angina Qualified Code(s): I25.10 - Atherosclerotic heart disease of galena coronary artery without angina pectoris Code(s): I25.10 - Atherosclerotic heart disease of galena coronary artery without angina pectoris Status: Acute Assessment and Plan: As above, continue medical therapy aspirin, statin. Did not tolerate beta-mamie therapy 04/27/2020. (3) History of aortic valve replacement with bioprosthetic valve: Code(s): Z95.3 - Presence of xenogenic heart valve Status: Acute Assessment and Plan: Mild to moderate prosthetic stenosis on echo this admission. (4) Acute respiratory failure: Qualifiers: Respiratory failure complication: hypoxia Qualified Code(s): J96.01 - Acute respiratory failure with hypoxia Code(s): J96.00 - Acute respiratory failure, unspecified whether with hypoxia or hypercapnia Status: Acute Assessment and Plan: Pneumonia management per Critical Care Service and Dr. Saini. Mental status improving. COVID-19 negative. (5) Septic shock: Code(s): A41.9 - Sepsis, unspecified organism; R65.21 - Severe sepsis with septic shock Status: Acute Assessment and Plan: Pressors have been weaned off. Continue antibiotics and supportive care. (6) Acute kidney injury superimposed on chronic kidney disease: Code(s): N17.9 - Acute kidney failure, unspecified; N18.9 - Chronic kidney disease, unspecified Status: Acute Assessment and Plan: Volume overload 2nd CKD and possibly some CHF. Hemodialysis initiated. Appreciate Nephrology involvement. (7) Pneumonia: Code(s): J18.9 - Pneumonia, unspecified organism Status: Acute Assessment and Plan: As above. Per Critical Care Service. (8) LBBB (left bundle branch block): Code(s): I44.7 - Left bundle-branch block, unspecified Status: Acute Assessment and Plan: Chronic. (9) Atrial tachycardia: Code(s): I47.1 - Supraventricular tachycardia Status: Acute Assessment and Plan: Remains in sinus rhythm. Subjective Date/time seen: 05/07/20 10:32 Interval history: 69-year-old patient with relatively severe ischemic cardiomyopathy also with end-stage renal disease and dependent on dialy
--- NOTE | 2020-05-07 11:10 | PCSTNOTE ---
Attempted ST treatment x2 but pt not available due to dialysis. Written exercises to improve swallow function were provided in her room.
--- NOTE | 2020-05-07 11:44 | PM.PNNEP ---
Progress Note: A&P Assessment and Plan (1) BARRON (acute kidney injury): Code(s): N17.9 - Acute kidney failure, unspecified Status: Acute Assessment and Plan: due to acute illness/infection/hypotension.... still not making much urine given the severity of her baseline CKD, she may be dialysis dependent/ESRD at this time HD today and continue T/T/S schedule for now follow electrolytes, volume status, and clearance (2) CKD (chronic kidney disease), stage V: Code(s): N18.5 - Chronic kidney disease, stage 5 Status: Acute Assessment and Plan: due to diabetes, hypertension, and vascular disease advanced disease at baseline (3) Encephalopathy: Code(s): G93.40 - Encephalopathy, unspecified Status: Acute Assessment and Plan: improvement noted each day follow menation (4) Metabolic acidosis: Code(s): E87.2 - Acidosis Status: Acute Assessment and Plan: resolved with dialytic intervention (5) Pneumonia: Code(s): J18.9 - Pneumonia, unspecified organism Status: Acute Assessment and Plan: completed treatment/antibiotics respiratory status significantly better continue supportive therapy (6) Anemia: Code(s): D64.9 - Anemia, unspecified Status: Acute Assessment and Plan: due to advanced CKD and acute illness getting Epogen with dialysis follow trend of H/H (7) Diabetes: Code(s): E11.9 - Type 2 diabetes mellitus without complications Status: Acute Assessment and Plan: follow accuchecks on SSI Will continue to follow. Subjective Date/time seen: 05/07/20 11:44 Tolerating dialysis treatment at the time of my visit (seen on HD at ~ 11:35AM); she is requesting to end her HD treatment early (seem agitated and hungry ) but was willing to stay on for another 15 minutes; no other apparent distress at this time. Exam Narrative: Exam Narrative: General: WD/WN emale in NAD Heart: normal S1 and S2; no rub Lungs: decreased at bases Abdomen: soft, nontender, nondistended, positive bowel sounds Extremities: no cyanosis or clubbing; trace edema Skin: warm and dry Objective Data Vital Signs Vital Signs: Vital Signs Temp Pulse Resp BP Pulse Ox 05/07/20 11:30 80 131/49 L 05/07/20 11:15 80 117/48 L 05/07/20 11:00 81 129/47 L 05/07/20 10:45 81 96/44 L 05/07/20 10:30 85 122/47 L 05/07/20 10:15 78 139/48 L 05/07/20 10:00 71 141/48 H 05/07/20 09:45 81 110/47 L 05/07/20 09:30 79 119/60 05/07/20 09:15 77 120/55 L 05/07/20 09:11 36.2 C L 81 16 113/55 L 05/07/20 07:55 80 18 05/07/20 05:34 36.1 C L 83 16 113/57 L 96 05/07/20 03:15 79 18 05/06/20 21:52 36.3 C L 79 20 103/42 L 94 05/06/20 20:01 78 18 05/06/20 20:00 78 18 93 05/06/20 19:55 75 18 93 05/06/20 19:51 75 18 05/06/20 14:40 84 05/06/20 14:30 81 16 05/06/20 14:00 36.7 C 76 18 122/51 L 96 Intake/Output Intake/Output: Intake & Output 05/04/20 05/05/20 05/06/20 05/07/20 23:59 23:59 23:59 23:59 Intake Total 60 904 320 170 Output Total 2100 301 100 200 Balance -2040 603 220 -30 Meds/Results Medications: Active Medications Generic Name Dose Route Start Last Admin Trade Name Gerardoq PRN Reason Stop Dose Admin Albuterol 2.5 mg 04/26/20 14:11 Albuterol Sulf Neb 2.5mg/0.5ml INHALATION Q4H PRN Wheezing Aspirin 325 mg 05/05/20 18:55 05/06/20 08:43 Aspirin PO 325 mg DAILY@0800 [facility] Administration Atorvastatin Calcium 20 mg 05/05/20 18:55 05/06/20 08:43 Lipitor PO 20 mg DAILY [facility] Administration Calcium Acetate 667 mg 05/05/20 18:55 05/06/20 18:15 Phoslo PO 667 mg TID [facility]NTH[facility] Administration Dextrose 12.5 gm 04/27/20 09:52 05/04/20 05:43 Dextrose 50% Syringe IV PUSH 12.5 gm PRN PRN Administration Hypoglycemia Protoco
[2020-05-07] MEDS: EPOETIN ALFA 10,000 UNITS/ML VIAL 10000 UNITS IV PUSH (11:55)
--- NOTE | 2020-05-07 13:08 | PC.NURSE ---
Returned to room from dialysis via bed. IV intact.
[2020-05-07 13:37] LABS: Glucose Point of Care 85 (65-105)
[2020-05-07] MEDS: ASPIRIN 325 MG TABLET PO (13:39)
[2020-05-07] MEDS: ATORVASTATIN 20 MG TABLET PO (13:39)
[2020-05-07] MEDS: PANTOPRAZOLE SODIUM IV 40 MG VIAL IV PUSH (13:39)
[2020-05-07] MEDS: TOLNAFTATE 1% POWDER 45 GM BTL 1 APPLIC TOPICAL ×2 (13:40→20:27)
[2020-05-07] MEDS: MIDODRINE HCL 10 MG TABLET PO ×2 (13:40→17:14)
[2020-05-07] MEDS: CALCIUM ACETATE 667 MG TABLET PO ×2 (13:40→17:14)
--- NOTE | 2020-05-07 16:11 | PM.IMPN ---
Progress Note: A&P Assessment and Plan (1) Acute respiratory failure: Qualifiers: Respiratory failure complication: hypoxia Qualified Code(s): J96.01 - Acute respiratory failure with hypoxia Code(s): J96.00 - Acute respiratory failure, unspecified whether with hypoxia or hypercapnia Status: Acute Assessment and Plan: Patient was in respiratory distress in the field and attempted intubation but was unsuccessful. Successfully intubated and placed on mechanically ventilated here. Thought secondary to fluid overload and pneumonia. Stablized and was able to be extubated on 05/03/20. Recovering well. Currently on 1L. Plan discharge soon. (2) Pneumonia: Code(s): J18.9 - Pneumonia, unspecified organism Status: Acute Assessment and Plan: Atelectasis versus pneumonia noted on chest CT. Atarted on azithromycin and rocephin but switched to iv doxycycline and rocephin due to amiodarone drip. Finished 9 day course 05/04. Sputum and blood cultures negative. Pt had thoracentesis for pleural effusion with no evidence of infection. (3) Urinary tract infection: Code(s): N39.0 - Urinary tract infection, site not specified Status: Acute Assessment and Plan: Urine culture is growing E coli pansensitive, Rocephin and finished 05/04. (4) Metabolic acidosis: Code(s): E87.2 - Acidosis Status: Acute Assessment and Plan: Resolved. Thought secondary to renal failure and/or infection. (5) Acute kidney injury superimposed on chronic kidney disease: Code(s): N17.9 - Acute kidney failure, unspecified; N18.9 - Chronic kidney disease, unspecified Status: Acute Assessment and Plan: Patient has CKD V most likely at end stage. Plan for skilled nursing HD. Appreciate nephrology input. (6) Type 2 diabetes mellitus: Code(s): E11.9 - Type 2 diabetes mellitus without complications Status: Acute Assessment and Plan: A1c 8.2. Glucose reviewed on 05/07/20. Glucose well controlled. Continue Accu-Cheks covering with sliding scale insulin. Hypoglycemic protocol availabe as needed. Continue Lantus 10 U qd. (7) Congestive heart failure: Onset Date: ~12/2019 Code(s): I50.9 - Heart failure, unspecified Status: Acute Assessment and Plan: Patient with mixed systolic and diastolic congestive heart failure. Ischemic cardiomyopathy with improved ejection fraction to 50 to 55% on echo in December 2019. Now EF 25%. Low dose ACEI added. 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 Pt had some atrial tachycardia was placed on amiodarone drip earlier in the week off amiodarone now. (8) Acute on chronic anemia: Code(s): D64.9 - Anemia, unspecified Status: Acute Assessment and Plan: Suspect chronic anemia from her CKD. EPO started. Seen by GI and treat for gastritis. with PPI hgb stable and possible EGD later (9) DVT prophylaxis: Code(s): Z29.9 - Encounter for prophylactic measures, unspecified Status: Acute Assessment and Plan: Heparin Subjective Date/time seen: 05/07/20 16:11 Interval history: Date of visit 05/07. 69yo female with CAD/CABG, status post bioprosthetic aortic valve replacement, CKD (now on HD this admission) with maturing right upper extremity fistula, hypertension, chronic anemia, and type 2 diabetes mellitus here for respiratory failure and PNA. Covid is negative. Extubated 05/03. Assuming care. Chart revie
[2020-05-07 17:10] LABS: Glucose Point of Care 113 (65-105)
[2020-05-07 20:37] LABS: Glucose Point of Care 159 (65-105)
[2020-05-07] MEDS: MELATONIN 3 MG TABLET PO (23:55)
[2020-05-08] VITALS (13 sets, daily range): BP systolic 108–123; BP diastolic 49–56; PULSE 75–97; RESP 12–20; TEMP 36.6–37.1; O2SAT 83–97
[2020-05-08] MEDS: LEVALBUTEROL NEB 1.25 MG/3 ML 0.63 MG INHALATION ×3 (01:44→20:23)
[2020-05-08] MEDS: IPRATROPIUM BR 0.02% INH SOLN 0.5 MG/2.5 ML VIAL INHALATION ×4 (01:45→20:23)
[2020-05-08] MEDS: HEPARIN SODIUM 5,000 UNITS/ML VIAL 5000 UNITS SUB-Q ×3 (05:38→22:54)
[2020-05-08 06:52] LABS: Glucose Point of Care 113 (65-105)
[2020-05-08] MEDS: CALCIUM ACETATE 667 MG TABLET PO ×3 (08:44→17:54)
[2020-05-08] MEDS: MIDODRINE HCL 10 MG TABLET PO ×3 (08:44→17:54)
[2020-05-08] MEDS: ATORVASTATIN 20 MG TABLET PO (08:44)
[2020-05-08] MEDS: ASPIRIN 325 MG TABLET PO (08:44)
[2020-05-08] MEDS: lisinopriL 2.5 MG TABLET PO (08:44)
[2020-05-08] MEDS: PANTOPRAZOLE SODIUM IV 40 MG VIAL IV PUSH (08:45)
[2020-05-08] MEDS: INSULIN GLARGINE (*BKC) 100 UNITS/ML 10 UNITS SUB-Q (08:46)
[2020-05-08] MEDS: TOLNAFTATE 1% POWDER 45 GM BTL 1 APPLIC TOPICAL ×2 (08:49→20:48)
--- NOTE | 2020-05-08 08:56 | PCPTNOTE ---
Addendum entered by Cheryle Son, CANAL DRIVER 05/08/20 08:58: Note added to wrong patient. Original Note: The PT treatment was not completed today. Patient declined, stating she expected to discharge today. Patient moving independently in room.
--- NOTE | 2020-05-08 09:02 | PM.IMPN ---
Progress Note: A&P Assessment and Plan (1) Acute respiratory failure: Qualifiers: Respiratory failure complication: hypoxia Qualified Code(s): J96.01 - Acute respiratory failure with hypoxia Code(s): J96.00 - Acute respiratory failure, unspecified whether with hypoxia or hypercapnia Status: Acute Assessment and Plan: Patient was in respiratory distress in the field and attempted intubation but was unsuccessful. Successfully intubated and placed on mechanically ventilated here. Thought secondary to fluid overload and pneumonia. Stabilized and was able to be extubated on 05/03/20. Recovering well. Currently on 1L. Plan discharge soon. (2) Pneumonia: Code(s): J18.9 - Pneumonia, unspecified organism Status: Acute Assessment and Plan: Atelectasis versus pneumonia noted on chest CT. Started on azithromycin and rocephin but switched to doxycycline and rocephin due to amiodarone drip. Finished 9 day course 05/04. Sputum and blood cultures negative. Pt had thoracentesis for pleural effusion with no evidence of infection. (3) Urinary tract infection: Code(s): N39.0 - Urinary tract infection, site not specified Status: Acute Assessment and Plan: Urine culture is growing E coli pansensitive, Rocephin and finished 05/04. (4) Metabolic acidosis: Code(s): E87.2 - Acidosis Status: Acute Assessment and Plan: Resolved. Thought secondary to renal failure and/or infection. (5) Acute kidney injury superimposed on chronic kidney disease: Code(s): N17.9 - Acute kidney failure, unspecified; N18.9 - Chronic kidney disease, unspecified Status: Acute Assessment and Plan: Patient has CKD V most likely at end stage. Plan for alf HD. Appreciate nephrology input. (6) Type 2 diabetes mellitus: Code(s): E11.9 - Type 2 diabetes mellitus without complications Status: Acute Assessment and Plan: A1c 8.2. Glucose reviewed on 05/08/20. Glucose well controlled. Continue Accu-Cheks covering with sliding scale insulin. Hypoglycemic protocol available as needed. Continue Lantus 10 U qd. (7) Congestive heart failure: Onset Date: ~12/2019 Code(s): I50.9 - Heart failure, unspecified Status: Acute Assessment and Plan: Patient with mixed systolic and diastolic congestive heart failure. Ischemic cardiomyopathy with improved ejection fraction to 50 to 55% on echo in December 2019. Now EF 25%. Low dose ACEI added. 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 Pt had some atrial tachycardia was placed on amiodarone drip earlier in the week; currently off amiodarone now. (8) Acute on chronic anemia: Code(s): D64.9 - Anemia, unspecified Status: Acute Assessment and Plan: Suspect chronic anemia from her CKD. EPO started. HH stable in the 7-8 range. Seen by GI and treated for gastritis with PPI. Possible EGD later. HH not checked today. (9) DVT prophylaxis: Code(s): Z29.9 - Encounter for prophylactic measures, unspecified Status: Acute Assessment and Plan: Heparin Subjective Date/time seen: 05/08/20 09:02 Interval history: Date of visit 05/08. 69yo female with CAD/CABG, status post bioprosthetic AVR, CKD (now on HD this admission) with maturing right upper extremity fistula here for respiratory failure and PNA. Covid is negative. Extubated 05/03. Patient remains alert but confused. She denies CP or SOB.
[2020-05-08 09:25] LABS: Glucose Point of Care 103 (65-105)
--- NOTE | 2020-05-08 10:12 | PM.PNCARD ---
Progress Note: A&P Assessment and Plan (1) Elevated troponin: Code(s): R79.89 - Other specified abnormal findings of blood chemistry Status: Acute Assessment and Plan: -Multifactorial etiology, peaked at 1.3. Most likely demand ischemia with known underlying CAD, acute on chronic renal failure, hypotension/septic shock on pressor support. COVID-19 negative. Doubt ACS. Conservative therapy at this time, -LV systolic dysfunction as above, new cardiomyopathy, worse than a few months ago. -Dialysis for volume removal -blood pressure does seem a bit more stable. Started low-dose Kishan inhibitor. No beta-mamie at this point. -Echo 04/30/2020:Mild LV enlargement, severe LVH, severe LV systolic dysfunction, ejection fraction 25-30%; abnormal diastolic function. Abnormal G LS manager privacy at-5.6. Mild RV enlargement. Systolic and diastolic ventricular septal flattening consistent with elevated RV pressure and volume. Mild left atrial enlargement. moderate mitral regurgitation. Moderate prosthetic valve aortic stenosis, v max 2.8 m/sec, peak gradient 32, mean gradient 16 mmHg, DVI 0.39, JUAN M 1 cm2. Moderate to severe tricuspid regurgitation, moderate pulmonary hypertension, RVSP 53 mmHg. When compared to echocardiogram from 01/12/2020 LV systolic function is much worse. (2) Coronary artery disease involving [place] coronary artery of [place] heart: Qualifiers: Associated angina: without angina Qualified Code(s): I25.10 - Atherosclerotic heart disease of [place] coronary artery without angina pectoris Code(s): I25.10 - Atherosclerotic heart disease of [place] coronary artery without angina pectoris Status: Acute Assessment and Plan: As above, continue medical therapy aspirin, statin. Did not tolerate beta-mamie therapy 04/27/2020. (3) History of aortic valve replacement with bioprosthetic valve: Code(s): Z95.3 - Presence of xenogenic heart valve Status: Acute Assessment and Plan: Mild to moderate prosthetic stenosis on echo this admission. (4) Acute respiratory failure: Qualifiers: Respiratory failure complication: hypoxia Qualified Code(s): J96.01 - Acute respiratory failure with hypoxia Code(s): J96.00 - Acute respiratory failure, unspecified whether with hypoxia or hypercapnia Status: Acute Assessment and Plan: Pneumonia management per Critical Care Service and Dr. Saini. Mental status improving. COVID-19 negative. (5) Septic shock: Code(s): A41.9 - Sepsis, unspecified organism; R65.21 - Severe sepsis with septic shock Status: Acute Assessment and Plan: Pressors have been weaned off. Continue antibiotics and supportive care. (6) Acute kidney injury superimposed on chronic kidney disease: Code(s): N17.9 - Acute kidney failure, unspecified; N18.9 - Chronic kidney disease, unspecified Status: Acute Assessment and Plan: Volume overload 2nd CKD and possibly some CHF. Hemodialysis initiated. Appreciate Nephrology involvement. (7) Pneumonia: Code(s): J18.9 - Pneumonia, unspecified organism Status: Acute Assessment and Plan: As above. Per Critical Care Service. (8) LBBB (left bundle branch block): Code(s): I44.7 - Left bundle-branch block, unspecified Status: Acute Assessment and Plan: Chronic. (9) Atrial tachycardia: Code(s): I47.1 - Supraventricular tachycardia Status: Acute Assessment and Plan: Remains in sinus rhythm. Subjective Date/time seen: 05/08/20 10:12 Interval history: 69-year-old patient with relatively severe ischemic cardiomyopathy also with end-stage renal disease and d
--- NOTE | 2020-05-08 10:21 | WPDGIPROGNO ---
Progress Note: A&P Additional Plan Patient alert but remains weak this morning. Tolerating liquid diet. Speech therapy assisting with swallowing therapy. Physical exam reveals patient to be alert. But weak. She is somewhat pale in appearance. Vital signs are stable. HEENT exam reveals no icterus. Lungs are clear with a few rhonchi. Heart without murmur. Abdomen is soft and nontender. Labs reveal hemoglobin 7.9 essentially stable. LFTs continue to improve. Impression 1. Chronic anemia likely related to chronic kidney disease. Patient is being treated for stress gastritis. Advance diet as tolerated. 2. Elevated LFTs. Gradually improving. [place] to be related to recent sepsis. 3. Resolving pneumonia. 4. Chronic kidney disease. Patient on dialysis. Subjective Date/time seen: 05/08/20 10:21 Objective Data Vital Signs Vital Signs: Vital Signs - 24 hr 05/07/20 10:30 05/07/20 10:45 05/07/20 11:00 Temperature Pulse Rate 85 81 81 Respiratory Rate Blood Pressure 122/47 L 96/44 L 129/47 L Pulse Oximetry 05/07/20 11:15 05/07/20 11:30 05/07/20 11:45 Temperature Pulse Rate 80 80 81 Respiratory Rate Blood Pressure 117/48 L 131/49 L 118/46 L Pulse Oximetry 05/07/20 12:00 05/07/20 12:10 05/07/20 13:40 Temperature 36.2 C L Pulse Rate 80 80 75 Respiratory Rate 16 18 Blood Pressure 107/47 L 131/45 L Pulse Oximetry 05/07/20 13:46 05/07/20 14:00 05/07/20 20:00 Temperature 36.8 C Pulse Rate 75 91 82 Respiratory Rate 18 18 16 Blood Pressure 133/55 L Pulse Oximetry 96 99 05/07/20 20:09 05/07/20 20:10 05/07/20 20:23 Temperature Pulse Rate 83 79 Respiratory Rate 18 18 Blood Pressure Pulse Oximetry 94 05/07/20 21:59 05/08/20 00:55 05/08/20 01:45 Temperature 36.4 C Pulse Rate 82 75 78 Respiratory Rate 16 18 18 Blood Pressure 113/47 L Pulse Oximetry 99 05/08/20 05:41 05/08/20 08:21 05/08/20 08:31 Temperature 36.7 C Pulse Rate 91 84 84 Respiratory Rate 20 18 18 Blood Pressure 108/56 L Pulse Oximetry 96 92 Intake/Output Intake/Output: Intake & Output 05/05/20 05/06/20 05/07/20 05/08/20 23:59 23:59 23:59 23:59 Intake Total 904 320 530 290 Output Total 471 834 1257 Balance 603 220 -570 290 Meds/Results Medications: Active Medications Generic Name Dose Route Start Last Admin Trade Name Freq PRN Reason Stop Dose Admin Albuterol 2.5 mg 04/26/20 14:11 Albuterol Sulf Neb 2.5mg/0.5ml INHALATION Q4H PRN Wheezing Aspirin 325 mg 05/05/20 18:55 05/08/20 08:44 Aspirin PO 325 mg DAILY@0800 [facility] Administration Atorvastatin Calcium 20 mg 05/05/20 18:55 05/08/20 08:44 Lipitor PO 20 mg DAILY [facility] Administration Calcium Acetate 667 mg 05/05/20 18:55 05/08/20 08:44 Phoslo PO 667 mg TID [facility] Administration Dextrose 12.5 gm 04/27/20 09:52 05/04/20 05:43 Dextrose 50% Syringe IV PUSH 12.5 gm PRN PRN Administration Hypoglycemia Protocol Epoetin Mike 10,000 units 04/27/20 11:55 05/07/20 13:40 Epogen IV PUSH Not Given TUTA [facility] Famotidine 20 mg 05/08/20 09:05 Pepcid PO Q12HR [facility] Glucagon 1 mg 04/27/20 09:52 Glucagon For Inj IM PRN PRN Hypoglycemia Protocol Glucose 15 gm 04/27/20 09:52 Glutose 15 PO PRN PRN Hypoglycemia Protocol Heparin Sodium (Porcine) 5,000 units 05/04/20 14:00 05/08/20 05:38 Heparin Sodium SUB-Q 5,000 units Q8HR [facility] Administration Dextrose 1,000 mls @ 100 mls/hr 04/27/20 09:52 Dextrose 5% 1,000 Ml IVPB PRN PRN Hypoglycemia Protocol Albumin Human 50 mls @ 999 mls/hr 05/07/20 07:00 Albutein IVPB 06/06/20 07:01 Q10M PRN HYPOTENSION Insulin Aspart 3 - 6 units 05/05/20 16:30 05/08/20 05:38 Novolog SUB-Q Not Given ACHS [facility] Protocol Insulin Glargine 10 units 05/06/20 09:00 05/08/20 08:46 Lantus SUB-Q 10 units
[2020-05-08 11:43] LABS: Glucose Point of Care 164 (65-105)
[2020-05-08] MEDS: FAMOTIDINE 20 MG TABLET PO ×2 (13:06→20:47)
[2020-05-08] MEDS: ALBUTEROL SULFATE NEB 2.5 MG/0.5 ML INH INHALATION (14:04)
--- NOTE | 2020-05-08 16:40 | P.PNNP_ITS ---
Progress Note: A&P Assessment and Plan (1) BARRON (acute kidney injury): Code(s): N17.9 - Acute kidney failure, unspecified Status: Acute Assessment and Plan: * due to acute illness/infection/hypotension.... * still not making much urine * given the severity of her baseline CKD, she may be dialysis dependent/ESRD at this time * HD tomorrow and continue T/T/S schedule for now * follow electrolytes, volume status, and clearance (2) CKD (chronic kidney disease), stage V: Code(s): N18.5 - Chronic kidney disease, stage 5 Status: Acute Assessment and Plan: * due to diabetes, hypertension, and vascular disease * advanced disease at baseline (3) Encephalopathy: Code(s): G93.40 - Encephalopathy, unspecified Status: Acute Assessment and Plan: * slow improvement noted * follow mentation (4) Metabolic acidosis: Code(s): E87.2 - Acidosis Status: Acute Assessment and Plan: * resolved with dialytic intervention (5) Pneumonia: Code(s): J18.9 - Pneumonia, unspecified organism Status: Acute Assessment and Plan: * completed treatment/antibiotics * respiratory status significantly better * continue supportive therapy (6) Anemia: Code(s): D64.9 - Anemia, unspecified Status: Acute Assessment and Plan: * due to advanced CKD and acute illness * getting Epogen with dialysis * follow trend of H/H (7) Diabetes: Code(s): E11.9 - Type 2 diabetes mellitus without complications Status: Acute Assessment and Plan: * follow accuchecks * on SSI Will continue to follow. Subjective Date/time seen: 05/08/20 16:40 Resting comfortably at the time of my visit -- awakes easily with stimulation; noted some mild confusion; no shortness of breath or chest pain voiced; appears reasonably well. Exam Narrative: Exam Narrative: General: WD/WN emale in NAD Heart: normal S1 and S2; no rub Lungs: few scattered crackles at bases Abdomen: soft, nontender, nondistended, positive bowel sounds Extremities: no cyanosis or clubbing; trace edema Skin: warm and intact Objective Data Vital Signs Vital Signs: Vital Signs Temp Pulse Resp BP Pulse Ox 05/08/20 14:15 86 18 05/08/20 14:04 84 18 05/08/20 14:00 36.6 C 86 18 123/50 L 96 05/08/20 08:31 84 18 05/08/20 08:21 84 18 92 05/08/20 05:41 36.7 C 91 20 108/56 L 96 05/08/20 01:45 78 18 05/08/20 00:55 75 18 05/07/20 21:59 36.4 C 82 16 113/47 L 99 05/07/20 20:23 79 18 05/07/20 20:10 83 18 05/07/20 20:09 94 05/07/20 20:00 82 16 99 Intake/Output Intake/Output: Intake & Output 05/05/20 05/06/20 05/07/20 05/08/20 23:59 23:59 23:59 23:59 Intake Total 904 320 530 290 Output Total 388 372 4091 Balance 603 220 -570 290 Meds/Results Medications: Active Medications Generic Name Dose Route Start Last Admin Trade Name Freq PRN Reason Stop Dose Admin Albuterol 2.5 mg 04/26/20 14:11 05/08/20 14:04 Albuterol Sulf Neb 2.5mg/0.5ml INHALATION 2.5 mg Q4H PRN Administration Wheezing Aspirin 325 mg 05/05/20 18:55 06
--- NOTE | 2020-05-08 16:40 | PM.PNNEP ---
Progress Note: A&P Assessment and Plan (1) BARRON (acute kidney injury): Code(s): N17.9 - Acute kidney failure, unspecified Status: Acute Assessment and Plan: due to acute illness/infection/hypotension.... still not making much urine given the severity of her baseline CKD, she may be dialysis dependent/ESRD at this time HD tomorrow and continue T/T/S schedule for now follow electrolytes, volume status, and clearance (2) CKD (chronic kidney disease), stage V: Code(s): N18.5 - Chronic kidney disease, stage 5 Status: Acute Assessment and Plan: due to diabetes, hypertension, and vascular disease advanced disease at baseline (3) Encephalopathy: Code(s): G93.40 - Encephalopathy, unspecified Status: Acute Assessment and Plan: slow improvement noted follow mentation (4) Metabolic acidosis: Code(s): E87.2 - Acidosis Status: Acute Assessment and Plan: resolved with dialytic intervention (5) Pneumonia: Code(s): J18.9 - Pneumonia, unspecified organism Status: Acute Assessment and Plan: completed treatment/antibiotics respiratory status significantly better continue supportive therapy (6) Anemia: Code(s): D64.9 - Anemia, unspecified Status: Acute Assessment and Plan: due to advanced CKD and acute illness getting Epogen with dialysis follow trend of H/H (7) Diabetes: Code(s): E11.9 - Type 2 diabetes mellitus without complications Status: Acute Assessment and Plan: follow accuchecks on SSI Will continue to follow. Subjective Date/time seen: 05/08/20 16:40 Resting comfortably at the time of my visit -- awakes easily with stimulation; noted some mild confusion; no shortness of breath or chest pain voiced; appears reasonably well. Exam Narrative: Exam Narrative: General: WD/WN emale in NAD Heart: normal S1 and S2; no rub Lungs: few scattered crackles at bases Abdomen: soft, nontender, nondistended, positive bowel sounds Extremities: no cyanosis or clubbing; trace edema Skin: warm and intact Objective Data Vital Signs Vital Signs: Vital Signs Temp Pulse Resp BP Pulse Ox 05/08/20 14:15 86 18 05/08/20 14:04 84 18 05/08/20 14:00 36.6 C 86 18 123/50 L 96 05/08/20 08:31 84 18 05/08/20 08:21 84 18 92 05/08/20 05:41 36.7 C 91 20 108/56 L 96 05/08/20 01:45 78 18 05/08/20 00:55 75 18 05/07/20 21:59 36.4 C 82 16 113/47 L 99 05/07/20 20:23 79 18 05/07/20 20:10 83 18 05/07/20 20:09 94 05/07/20 20:00 82 16 99 Intake/Output Intake/Output: Intake & Output 05/05/20 05/06/20 05/07/20 05/08/20 23:59 23:59 23:59 23:59 Intake Total 904 320 530 290 Output Total 245 458 8615 Balance 603 220 -570 290 Meds/Results Medications: Active Medications Generic Name Dose Route Start Last Admin Trade Name Freq PRN Reason Stop Dose Admin Albuterol 2.5 mg 04/26/20 14:11 05/08/20 14:04 Albuterol Sulf Neb 2.5mg/0.5ml INHALATION 2.5 mg Q4H PRN Administration Wheezing Aspirin 325 mg 05/05/20 18:55 05/08/20 08:44 Aspirin PO 325 mg DAILY@0800 [facility] Administration Atorvastatin Calcium 20 mg 05/05/20 18:55 05/08/20 08:44 Lipitor PO 20 mg DAILY [facility] Administration Calcium Acetate 667 mg 05/05/20 18:55 05/08/20 13:05 Phoslo PO 667 mg TID [facility] Administration Dextrose 12.5 gm 04/27/20 09:52 05/04/20 05:43 Dextrose 50% Syringe IV PUSH 12.5 gm PRN PRN Administration Hypoglycemia Protocol Epoetin Mike 10,000 units 04/27/20 11:55 05/07/20 13:40 Epogen IV PUSH Not Given TUTA [facility] Famotidine 20 mg 05/08/20 09:05 05/08/20 13:06 Pepcid PO 20 mg Q12HR [facility] Administration Glucagon 1 mg 04/27/20 09:52 Glucagon For Inj IM PRN PRN Hypoglycemia Protocol Glucose 15 gm 04/27/20 09:52 G
[2020-05-08 17:35] LABS: Glucose Point of Care 137 (65-105)
[2020-05-08] MEDS: MELATONIN 3 MG TABLET PO (20:48)
[2020-05-08] MEDS: INSULIN ASPART (*BKC) 100 UNITS/ML SUB-Q (20:49)
[2020-05-08 20:54] LABS: Glucose Point of Care 223 (65-105)
[2020-05-09] VITALS (25 sets, daily range): BP systolic 116–149; BP diastolic 47–83; PULSE 66–884; RESP 12–20; TEMP 34.7–37.2; O2SAT 92–99
[2020-05-09] MEDS: HEPARIN SODIUM 5,000 UNITS/ML VIAL 5000 UNITS SUB-Q ×3 (06:13→21:59)
[2020-05-09 06:33] LABS: Glucose Point of Care 131 (65-105)
[2020-05-09] MEDS: IPRATROPIUM BR 0.02% INH SOLN 0.5 MG/2.5 ML VIAL INHALATION ×2 (08:32→20:08)
[2020-05-09] MEDS: LEVALBUTEROL NEB 1.25 MG/3 ML 0.63 MG INHALATION ×2 (08:32→20:08)
[2020-05-09] MEDS: INSULIN GLARGINE (*BKC) 100 UNITS/ML SUB-Q (08:56)
[2020-05-09] MEDS: TOLNAFTATE 1% POWDER 45 GM BTL 1 APPLIC TOPICAL ×2 (08:58→21:59)
--- NOTE | 2020-05-09 10:00 | PC.NURSE ---
Pt to dialysis via hospital bed.
--- NOTE | 2020-05-09 10:25 | PCOTNOTE ---
Attempted to see patient this am, however patient was off floor for dialysis.
--- NOTE | 2020-05-09 10:31 | WPDGIPROGNO ---
Progress Note: A&P Additional Plan Patient alert. This remains somewhat weak. Tolerating diet with thickened liquids. Under speech therapy direction. Physical exam reveals abdomen to be benign. Bowel sounds are present soft and nontender. Impression 1. Anemia. Multifactorial. Chronic kidney disease contributing. Patient on medications for possible stress gastritis. 2. LFTs resolving consistent with recent sepsis. No additional workup plan. 3. Chronic kidney disease. Patient on dialysis. Repeat Nephrology service following. 4. Pneumonia. Resolving sepsis. Subjective Date/time seen: 05/09/20 10:31 Objective Data Vital Signs Vital Signs: Vital Signs - 24 hr 05/08/20 14:00 05/08/20 14:04 05/08/20 14:15 Temperature 36.6 C Pulse Rate 86 84 86 Respiratory Rate 18 18 18 Blood Pressure 123/50 L Pulse Oximetry 96 05/08/20 20:27 05/08/20 20:28 05/08/20 20:37 Temperature Pulse Rate 94 97 Respiratory Rate 18 18 Blood Pressure Pulse Oximetry 83 L 05/08/20 21:15 05/08/20 22:00 05/09/20 06:00 Temperature 37.1 C 36.6 C Pulse Rate 91 83 Respiratory Rate 12 12 Blood Pressure 120/49 L 135/64 Pulse Oximetry 92 97 99 05/09/20 08:33 05/09/20 08:35 05/09/20 08:46 Temperature Pulse Rate 96 92 Respiratory Rate 20 20 Blood Pressure Pulse Oximetry 92 Intake/Output Intake/Output: Intake & Output 05/06/20 05/07/20 05/08/20 05/09/20 23:59 23:59 23:59 23:59 Intake Total 320 530 410 140 Output Total 100 1100 Balance 220 -570 410 140 Meds/Results Medications: Active Medications Generic Name Dose Route Start Last Admin Trade Name Freq PRN Reason Stop Dose Admin Albuterol 2.5 mg 04/26/20 14:11 05/08/20 14:04 Albuterol Sulf Neb 2.5mg/0.5ml INHALATION 2.5 mg Q4H PRN Administration Wheezing Aspirin 325 mg 05/05/20 18:55 05/08/20 08:44 Aspirin PO 325 mg DAILY@0800 [facility] Administration Atorvastatin Calcium 20 mg 05/05/20 18:55 05/08/20 08:44 Lipitor PO 20 mg DAILY [facility] Administration Calcium Acetate 667 mg 05/05/20 18:55 05/08/20 17:54 Phoslo PO 667 mg TID [facility] Administration Dextrose 12.5 gm 04/27/20 09:52 05/04/20 05:43 Dextrose 50% Syringe IV PUSH 12.5 gm PRN PRN Administration Hypoglycemia Protocol Epoetin Mike 10,000 units 04/27/20 11:55 05/07/20 13:40 Epogen IV PUSH Not Given TUTHSA [facility] Famotidine 20 mg 05/08/20 09:05 05/08/20 20:47 Pepcid PO 20 mg Q12HR [facility] Administration Glucagon 1 mg 04/27/20 09:52 Glucagon For Inj IM PRN PRN Hypoglycemia Protocol Glucose 15 gm 04/27/20 09:52 Glutose 15 PO PRN PRN Hypoglycemia Protocol Heparin Sodium (Porcine) 5,000 units 05/04/20 14:00 05/09/20 06:13 Heparin Sodium SUB-Q 5,000 units Q8HR [facility] Administration Dextrose 1,000 mls @ 100 mls/hr 04/27/20 09:52 Dextrose 5% 1,000 Ml IVPB PRN PRN Hypoglycemia Protocol Albumin Human 50 mls @ 999 mls/hr 05/07/20 07:00 Albutein IVPB 06/06/20 07:01 Q10M PRN HYPOTENSION Insulin Aspart 3 - 6 units 05/05/20 16:30 05/09/20 06:13 Novolog SUB-Q Not Given ACHS [facility] Protocol Insulin Glargine 5 units 05/09/20 09:00 05/09/20 08:56 Lantus SUB-Q 5 units DAILY [facility] Administration Ipratropium [place] 0.5 mg 04/26/20 14:10 Atrovent Neb INHALATION Q4H PRN wheezing Ipratropium [place] 0.5 mg 05/08/20 14:00 05/09/20 08:32 Atrovent Neb INHALATION 0.5 mg [id number] [facility] Administration Levalbuterol HCl 0.63 mg 05/08/20 14:00 05/09/20 08:32 Xopenex 1.25 Mg/3 Ml INHALATION 0.63 mg [id number] [facility] Administration Lisinopril 2.5 mg 05/08/20 09:00 05/08/20 08:44 Prinivil PO 2.5 mg QAM [facility] Administration Melatonin 3 mg 05/08/20 21:00 05/08/20 20:48 Melatonin PO 3 mg HS [facility] Administration Midodrine 10 mg 05/05/20 18:55 05/08/20 17:54
--- NOTE | 2020-05-09 11:04 | PM.PNCARD ---
Progress Note: A&P Assessment and Plan (1) Elevated troponin: Code(s): R79.89 - Other specified abnormal findings of blood chemistry Status: Acute Assessment and Plan: -Multifactorial etiology, peaked at 1.3. Most likely demand ischemia with known underlying CAD, acute on chronic renal failure, hypotension/septic shock on pressor support. COVID-19 negative. Doubt ACS. Conservative therapy at this time, -LV systolic dysfunction as above, new cardiomyopathy, worse than a few months ago. -Dialysis for volume removal -blood pressure does seem a bit more stable. Will bump up her lisinopril to 5 mg daily. No beta-mamie at this point. -Echo 04/30/2020:Mild LV enlargement, severe LVH, severe LV systolic dysfunction, ejection fraction 25-30%; abnormal diastolic function. Abnormal G LS corporate services manager at-5.6. Mild RV enlargement. Systolic and diastolic ventricular septal flattening consistent with elevated RV pressure and volume. Mild left atrial enlargement. moderate mitral regurgitation. Moderate prosthetic valve aortic stenosis, v max 2.8 m/sec, peak gradient 32, mean gradient 16 mmHg, DVI 0.39, JUAN M 1 cm2. Moderate to severe tricuspid regurgitation, moderate pulmonary hypertension, RVSP 53 mmHg. When compared to echocardiogram from 01/12/2020 LV systolic function is much worse. (2) Coronary artery disease involving [place] coronary artery of [place] heart: Qualifiers: Associated angina: without angina Qualified Code(s): I25.10 - Atherosclerotic heart disease of [place] coronary artery without angina pectoris Code(s): I25.10 - Atherosclerotic heart disease of [place] coronary artery without angina pectoris Status: Acute Assessment and Plan: As above, continue medical therapy aspirin, statin. Did not tolerate beta-mamie therapy 04/27/2020. (3) History of aortic valve replacement with bioprosthetic valve: Code(s): Z95.3 - Presence of xenogenic heart valve Status: Acute Assessment and Plan: Mild to moderate prosthetic stenosis on echo this admission. (4) Acute respiratory failure: Qualifiers: Respiratory failure complication: hypoxia Qualified Code(s): J96.01 - Acute respiratory failure with hypoxia Code(s): J96.00 - Acute respiratory failure, unspecified whether with hypoxia or hypercapnia Status: Acute Assessment and Plan: Pneumonia management per Critical Care Service and Dr. Saini. Mental status improving. COVID-19 negative. (5) Septic shock: Code(s): A41.9 - Sepsis, unspecified organism; R65.21 - Severe sepsis with septic shock Status: Acute Assessment and Plan: Pressors have been weaned off. Continue antibiotics and supportive care. (6) Acute kidney injury superimposed on chronic kidney disease: Code(s): N17.9 - Acute kidney failure, unspecified; N18.9 - Chronic kidney disease, unspecified Status: Acute Assessment and Plan: Volume overload 2nd CKD and possibly some CHF. Hemodialysis initiated. Appreciate Nephrology involvement. (7) Pneumonia: Code(s): J18.9 - Pneumonia, unspecified organism Status: Acute Assessment and Plan: As above. Per Critical Care Service. (8) LBBB (left bundle branch block): Code(s): I44.7 - Left bundle-branch block, unspecified Status: Acute Assessment and Plan: Chronic. (9) Atrial tachycardia: Code(s): I47.1 - Supraventricular tachycardia Status: Acute Assessment and Plan: Remains in sinus rhythm. Discharge planning Subjective Date/time seen: 05/09/20 11:04 Interval history: 69-year-old patient with relatively severe ischemic cardiomyopathy also wi
[2020-05-09 11:50] LABS: Basophils Percent Auto 0.1 % (0.2-1.2); Eosinophils Percent Auto 0.3 % (0-4.4); Hematocrit 28.4 % (37.0-47.0); Hemoglobin 8.4 g/dL (12.0-15.0); Immature Granulocyte Absolute 0.07 K/mm3 (0.00-0.031); Immature Granulocyte Percent A 0.5 % (0-0.5); Lymphocytes Absolute Auto 0.91 K/mm3 (0.9-3.2); Lymphocytes Percent Auto 6.6 % (18.3-44.2); Mean Corpuscular HGB Conc 29.6 g/dl (32-36); Mean Corpuscular Hemoglobin 28.6 pg (26-34); Mean Corpuscular Volume 96.6 fl (80-100); Mean Platelet Volume 10.4 fl (7.4-10.4); Monocytes Absolute Auto 0.8 K/mm3 (0.1-0.6); Neutrophils Absolute Auto 11.9 K/mm3 (1.3-6.7); Neutrophils Percent Auto 86.5 % (45.5-73.1); Platelet Count Result 260 k/mm3 (150-375); Red Blood Count 2.94 M/mm3 (4.2-5.4); Red Cell Distribution Width 17.2 % (11.5-14.5); White Blood Count 13.8 K/mm3 (4.5-10.0)
[2020-05-09 12:06] LABS: Platelet Estimate Adequate (Adequate); Stomatocytes 2+ (NORMAL)
[2020-05-09 12:10] LABS: Albumin Level 3.5 g/dL (3.5-5.1); Blood Urea Nitrogen 26 mg/dL (7-17); Calcium 7.9 mg/dL (8.4-10.2); Carbon Dioxide 34 mmol/L (22-30); Chloride 95 mmol/L (98-107); Estimated CRCL calculation 20 ml/min; Estimated Glomerular Filt Rate 18; Glucose 146 mg/dL (65-105); Potassium 3.8 mmol/L (3.4-5.0); Sodium 136 mmol/L (137-145)
--- NOTE | 2020-05-09 12:31 | PM.PNNEP ---
Progress Note: A&P Assessment and Plan (1) End stage renal disease: Code(s): N18.6 - End stage renal disease Status: Chronic Assessment and Plan: due to acute illness/infection/hypotension on top of her known advanced kidney disease at baseline (CKD stage V) - given the severity of her CKD, AV access was placed several months ago for her need for renal replacement therapy not making much urine and noted rise in creatinine between dialysis treatments advanced CKD due to diabetes, hypertension, and vascular disease HD today and continue T/T/S schedule for now until outpatient dialysis schedule finalized follow electrolytes, volume status, and clearance (2) Encephalopathy: Code(s): G93.40 - Encephalopathy, unspecified Status: Acute Assessment and Plan: slow improvement noted follow mentation (3) Metabolic acidosis: Code(s): E87.2 - Acidosis Status: Acute Assessment and Plan: resolved with dialytic intervention (4) Pneumonia: Code(s): J18.9 - Pneumonia, unspecified organism Status: Acute Assessment and Plan: completed treatment/antibiotics respiratory status significantly better continue supportive therapy (5) Anemia: Code(s): D64.9 - Anemia, unspecified Status: Acute Assessment and Plan: due to advanced CKD and acute illness getting Epogen with dialysis follow trend of H/H (6) Diabetes: Code(s): E11.9 - Type 2 diabetes mellitus without complications Status: Acute Assessment and Plan: follow accuchecks on SSI Will continue to follow. Subjective Date/time seen: 05/09/20 11:15 Tolerating dialysis at the time of my visit (seen on HD treatment at ~ 10:45AM); no apparent distress voiced; no other acute complaints voiced other than some mild nausea earlier. Exam Narrative: Exam Narrative: General: WD/WN female in NAD Heart: normal S1 and S2; no rub Lungs: few scattered crackles at bases Abdomen: soft, nontender, nondistended, positive bowel sounds Extremities: no cyanosis or clubbing; trace edema Skin: warm and intact Objective Data Vital Signs Vital Signs: Vital Signs Temp Pulse Resp BP Pulse Ox 05/09/20 10:10 36.8 C 89 20 149/74 H 05/09/20 08:46 92 20 05/09/20 08:35 92 05/09/20 08:33 96 20 05/09/20 06:00 36.6 C 83 12 135/64 99 05/08/20 22:00 37.1 C 91 12 120/49 L 97 05/08/20 21:15 92 05/08/20 20:37 97 18 05/08/20 20:28 83 L 05/08/20 20:27 94 18 05/08/20 14:15 86 18 05/08/20 14:04 84 18 05/08/20 14:00 36.6 C 86 18 123/50 L 96 Intake/Output Intake/Output: Intake & Output 05/06/20 05/07/20 05/08/20 05/09/20 23:59 23:59 23:59 23:59 Intake Total 320 530 410 140 Output Total 100 1100 Balance 220 -570 410 140 Meds/Results Medications: Active Medications Generic Name Dose Route Start Last Admin Trade Name Freq PRN Reason Stop Dose Admin Albuterol 2.5 mg 04/26/20 14:11 05/08/20 14:04 Albuterol Sulf Neb 2.5mg/0.5ml INHALATION 2.5 mg Q4H PRN Administration Wheezing Aspirin 325 mg 05/05/20 18:55 05/08/20 08:44 Aspirin PO 325 mg DAILY@0800 CYNTHIA Administration Atorvastatin Calcium 20 mg 05/05/20 18:55 05/08/20 08:44 Lipitor PO 20 mg DAILY CYNTHIA Administration Calcium Acetate 667 mg 05/05/20 18:55 05/08/20 17:54 Phoslo PO 667 mg TID CYNTHIA Administration Dextrose 12.5 gm 04/27/20 09:52 05/04/20 05:43 Dextrose 50% Syringe IV PUSH 12.5 gm PRN PRN Administration Hypoglycemia Protocol Epoetin Mike 10,000 units 04/27/20 11:55 05/07/20 13:40 Epogen IV PUSH Not Given TUTHSA CYNTHIA Famotidine 20 mg 05/08/20 09:05 05/08/20 20:47 Pepcid PO 20 mg Q12HR CYNTHIA Administration Glucagon 1 mg 04/27/20 09:52 Glucagon For Inj IM PRN PRN Hypoglycemia Protocol Glucose 15 gm
--- NOTE | 2020-05-09 14:20 | PC.NURSE ---
Pt returned to floor via hospital bed.
[2020-05-09] MEDS: CALCIUM ACETATE 667 MG TABLET PO ×2 (14:52→18:46)
[2020-05-09] MEDS: lisinopriL 2.5 MG TABLET PO ×2 (14:52→14:55)
[2020-05-09] MEDS: MIDODRINE HCL 10 MG TABLET PO ×2 (14:52→18:44)
[2020-05-09] MEDS: FAMOTIDINE 20 MG TABLET PO ×2 (14:53→21:03)
[2020-05-09] MEDS: ATORVASTATIN 20 MG TABLET PO (14:53)
[2020-05-09] MEDS: ASPIRIN 325 MG TABLET PO (14:53)
[2020-05-09 15:07] LABS: Glucose Point of Care 121 (65-105)
--- NOTE | 2020-05-09 16:40 | PCDIET ---
Nutrition Follow-Up Complete: Inadequate Oral intake as related to Mechanical Vent as evidenced by Tube feeding rate change. Meet estimated nutritional needs Goal:Progressing towards goal. Continue goal. Pt current nutrition is 4gm Na+thickened liquids. Nutrition recommendation: agree Last recorded weight is 85.6 kg (down from 86.2kg) Bowel Motility: 05/04 last BM Labs Reviewed: Na 136, GFR 18, BUN 26, Cr 2.70, Glucose 146 Meds Noted:Phoslo, Albumin, Epogen, Insulin, Melatonin, Miralax Additional Notes: Tolerating dialysis. Eating average of 43% of meals. On bowel motility agent. No supplements at this time. Diet appropriate. We will continue to monitor PO intake,wt, and labs every five days.
--- NOTE | 2020-05-09 17:37 | PM.IMPN ---
Progress Note: A&P Assessment and Plan (1) Acute respiratory failure: Qualifiers: Respiratory failure complication: hypoxia Qualified Code(s): J96.01 - Acute respiratory failure with hypoxia Code(s): J96.00 - Acute respiratory failure, unspecified whether with hypoxia or hypercapnia Status: Acute Assessment and Plan: Patient was in respiratory distress in the field and attempted intubation but was unsuccessful. Successfully intubated and placed on mechanically ventilated here. Thought secondary to fluid overload and pneumonia. Stabilized and was able to be extubated on 05/03/20. Recovering well. Currently on 1L. Plan discharge soon. (2) Pneumonia: Code(s): J18.9 - Pneumonia, unspecified organism Status: Acute Assessment and Plan: Atelectasis versus pneumonia noted on chest CT. Started on azithromycin and rocephin but switched to doxycycline and rocephin due to amiodarone drip. Finished 9 day course 05/04. Sputum and blood cultures negative. Pt had thoracentesis for pleural effusion with no evidence of infection. (3) Urinary tract infection: Code(s): N39.0 - Urinary tract infection, site not specified Status: Acute Assessment and Plan: Urine culture is growing E coli pansensitive, Rocephin and finished 05/04. (4) Metabolic acidosis: Code(s): E87.2 - Acidosis Status: Acute Assessment and Plan: Resolved. Thought secondary to renal failure and/or infection. (5) Acute kidney injury superimposed on chronic kidney disease: Code(s): N17.9 - Acute kidney failure, unspecified; N18.9 - Chronic kidney disease, unspecified Status: Acute Assessment and Plan: Patient has CKD V most likely at end stage. Plan for snf HD. Appreciate nephrology input. (6) Type 2 diabetes mellitus: Code(s): E11.9 - Type 2 diabetes mellitus without complications Status: Acute Assessment and Plan: A1c 8.2. Glucose reviewed on 05/09/20. Glucose well controlled. Continue Accu-Cheks covering with sliding scale insulin. Hypoglycemic protocol available as needed. Lantus has been held recently so will cut dose back to 5U qd. Continue to follow. (7) Congestive heart failure: Onset Date: ~12/2019 Code(s): I50.9 - Heart failure, unspecified Status: Acute Assessment and Plan: Patient with mixed systolic and diastolic congestive heart failure. Ischemic cardiomyopathy with improved ejection fraction to 50 to 55% on echo in December 2019. Now EF 25%. Tolerating low dose ACEI so advanced today. 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 Pt had some atrial tachycardia was placed on amiodarone drip earlier in the week; currently off amiodarone now. Appreciate Cardiology input (8) Acute on chronic anemia: Code(s): D64.9 - Anemia, unspecified Status: Acute Assessment and Plan: Suspect chronic anemia from her CKD. EPO started. HH stable in the 7-8 range. Seen by GI and treated for gastritis with PPI. Possible EGD later. HH stable today. (9) DVT prophylaxis: Code(s): Z29.9 - Encounter for prophylactic measures, unspecified Status: Acute Assessment and Plan: Heparin Subjective Date/time seen: 05/09/20 1030 Interval history: Date of visit 05/09. 69yo female with CAD/CABG, status post bioprosthetic AVR, CKD (now on HD this admission) with maturing right upper extremity fistula here for respiratory failure and P
[2020-05-09 18:31] LABS: Glucose Point of Care 132 (65-105)
[2020-05-09] MEDS: INSULIN ASPART (*BKC) 100 UNITS/ML SUB-Q (21:04)
[2020-05-09] MEDS: MELATONIN 3 MG TABLET PO (21:04)
[2020-05-09 21:09] LABS: Glucose Point of Care 205 (65-105)
[2020-05-10] VITALS (12 sets, daily range): BP systolic 118–136; BP diastolic 57–64; PULSE 78–91; RESP 18–20; TEMP 36.2–36.8; O2SAT 90–97
[2020-05-10] MEDS: HEPARIN SODIUM 5,000 UNITS/ML VIAL 5000 UNITS SUB-Q ×3 (06:08→21:06)
[2020-05-10 06:14] LABS: Glucose Point of Care 123 (65-105)
[2020-05-10] MEDS: LEVALBUTEROL NEB 1.25 MG/3 ML 0.63 MG INHALATION ×4 (08:10→19:45)
[2020-05-10] MEDS: IPRATROPIUM BR 0.02% INH SOLN 0.5 MG/2.5 ML VIAL INHALATION ×4 (08:10→19:44)
[2020-05-10] MEDS: ASPIRIN 325 MG TABLET PO (09:37)
[2020-05-10] MEDS: ATORVASTATIN 20 MG TABLET PO (09:37)
[2020-05-10] MEDS: FAMOTIDINE 20 MG TABLET PO ×2 (09:37→20:53)
[2020-05-10] MEDS: CALCIUM ACETATE 667 MG TABLET PO ×3 (09:37→16:39)
[2020-05-10] MEDS: MIDODRINE HCL 10 MG TABLET PO ×3 (09:37→16:39)
[2020-05-10] MEDS: INSULIN GLARGINE (*BKC) 100 UNITS/ML SUB-Q (09:38)
[2020-05-10] MEDS: lisinopriL 5 MG TABLET PO (09:38)
[2020-05-10] MEDS: TOLNAFTATE 1% POWDER 45 GM BTL 1 APPLIC TOPICAL ×2 (09:39→20:53)
--- NOTE | 2020-05-10 10:21 | PM.PNCARD ---
Progress Note: A&P Assessment and Plan (1) Elevated troponin: Code(s): R79.89 - Other specified abnormal findings of blood chemistry Status: Acute Assessment and Plan: -Multifactorial etiology, peaked at 1.3. Most likely demand ischemia with known underlying CAD, acute on chronic renal failure, hypotension/septic shock on pressor support. COVID-19 negative. Doubt ACS. Conservative therapy at this time, -LV systolic dysfunction as above, new cardiomyopathy, worse than a few months ago. -Dialysis for volume removal -blood pressure does seem a bit more stable. Tolerating lisinopril to 5 mg daily. No beta-mamie at this point. -Echo 04/30/2020:Mild LV enlargement, severe LVH, severe LV systolic dysfunction, ejection fraction 25-30%; abnormal diastolic function. Abnormal G LS contract negotiation manager at-5.6. Mild RV enlargement. Systolic and diastolic ventricular septal flattening consistent with elevated RV pressure and volume. Mild left atrial enlargement. moderate mitral regurgitation. Moderate prosthetic valve aortic stenosis, v max 2.8 m/sec, peak gradient 32, mean gradient 16 mmHg, DVI 0.39, JUAN M 1 cm2. Moderate to severe tricuspid regurgitation, moderate pulmonary hypertension, RVSP 53 mmHg. When compared to echocardiogram from 01/12/2020 LV systolic function is much worse. (2) Coronary artery disease involving di[place] coronary artery of diomede heart: Qualifiers: Associated angina: without angina Qualified Code(s): I25.10 - Atherosclerotic heart disease of di[place] coronary artery without angina pectoris Code(s): I25.10 - Atherosclerotic heart disease of [place] coronary artery without angina pectoris Status: Acute Assessment and Plan: As above, continue medical therapy aspirin, statin. Did not tolerate beta-mamie therapy 04/27/2020. (3) History of aortic valve replacement with bioprosthetic valve: Code(s): Z95.3 - Presence of xenogenic heart valve Status: Acute Assessment and Plan: Mild to moderate prosthetic stenosis on echo this admission. (4) Acute respiratory failure: Qualifiers: Respiratory failure complication: hypoxia Qualified Code(s): J96.01 - Acute respiratory failure with hypoxia Code(s): J96.00 - Acute respiratory failure, unspecified whether with hypoxia or hypercapnia Status: Acute Assessment and Plan: Pneumonia management per Critical Care Service and Dr. Saini. Mental status improving. COVID-19 negative. (5) Septic shock: Code(s): A41.9 - Sepsis, unspecified organism; R65.21 - Severe sepsis with septic shock Status: Acute Assessment and Plan: Pressors have been weaned off. Continue antibiotics and supportive care. (6) Acute kidney injury superimposed on chronic kidney disease: Code(s): N17.9 - Acute kidney failure, unspecified; N18.9 - Chronic kidney disease, unspecified Status: Acute Assessment and Plan: Volume overload 2nd CKD and possibly some CHF. Hemodialysis initiated and needs more volume removal. Her edema is worsening. Will try to give her a dose IV furosemide 40 mg to see if there is any response. Appreciate Nephrology involvement. (7) Pneumonia: Code(s): J18.9 - Pneumonia, unspecified organism Status: Acute Assessment and Plan: As above. Per Critical Care Service. (8) LBBB (left bundle branch block): Code(s): I44.7 - Left bundle-branch block, unspecified Status: Acute Assessment and Plan: Chronic. (9) Atrial tachycardia: Code(s): I47.1 - Supraventricular tachycardia Status: Acute Assessment and Plan: Remains in sinus rhythm. Discharge planning Subjecti
[2020-05-10] MEDS: FUROSEMIDE INJ 40 MG/4 ML VIAL IV PUSH (11:17)
[2020-05-10 11:20] LABS: Glucose Point of Care 167 (65-105)
[2020-05-10 11:39] LABS: Blood Urea Nitrogen 33 mg/dL (7-17); Calcium 8.4 mg/dL (8.4-10.2); Carbon Dioxide 35 mmol/L (22-30); Chloride 96 mmol/L (98-107); Estimated CRCL calculation 13 ml/min; Estimated Glomerular Filt Rate 11; Glucose 201 mg/dL (65-105); Potassium 4.1 mmol/L (3.4-5.0); Sodium 137 mmol/L (137-145)
--- NOTE | 2020-05-10 15:03 | P.PNNP_ITS ---
Progress Note: A&P Assessment and Plan (1) End stage renal disease: Code(s): N18.6 - End stage renal disease Status: Chronic Assessment and Plan: * due to acute illness/infection/hypotension on top of her known advanced kidney disease at baseline (CKD stage V) - given her known CKD, AV access was placed several months ago for her eventual need for renal replacement therapy * not making much urine and noted rise in creatinine between dialysis treatments * advanced CKD due to diabetes, hypertension, and vascular disease * HD tomorrow and continue T/T/S schedule for now until outpatient dialysis schedule finalized * follow electrolytes, volume status, and clearance (2) Encephalopathy: Code(s): G93.40 - Encephalopathy, unspecified Status: Acute Assessment and Plan: * slow improvement noted * follow mentation (3) Metabolic acidosis: Code(s): E87.2 - Acidosis Status: Acute Assessment and Plan: * resolved with dialytic intervention (4) Pneumonia: Code(s): J18.9 - Pneumonia, unspecified organism Status: Acute Assessment and Plan: * completed treatment/antibiotics * respiratory status significantly better * continue supportive therapy (5) Anemia: Code(s): D64.9 - Anemia, unspecified Status: Acute Assessment and Plan: * due to advanced CKD and acute illness * getting Epogen with dialysis * follow trend of H/H (6) Diabetes: Code(s): E11.9 - Type 2 diabetes mellitus without complications Status: Acute Assessment and Plan: * follow accuchecks * on SSI Will continue to follow. Subjective Date/time seen: 05/10/20 15:03 Tolerated dialysis yesterday without any acute issues or problems; otherwise, no acute complaints voiced; no events overnight or earlier this AM; no apparent distress. Exam Narrative: Exam Narrative: General: WD/WN female in NAD Heart: normal S1 and S2; no rub Lungs: some bibasilar crackles present Abdomen: soft, nontender, nondistended, positive bowel sounds Extremities: no cyanosis or clubbing; trace edema Skin: no rash or nodules Objective Data Vital Signs Vital Signs: Vital Signs Temp Pulse Resp BP Pulse Ox 05/10/20 13:56 82 20 05/10/20 13:45 78 20 05/10/20 08:32 91 05/10/20 08:18 85 20 06/12/20 08:10 83 20 91 05/10/20 08:00 94 05/10/20 06:00 36.8 C 85 18 118/57 L 97 05/09/20 22:00 37.2 C 87 20 116/48 L 98 05/09/20 20:18 88 20 05/09/20 20:12 94 05/09/20 20:08 86 20 Intake/Output Intake/Output: Intake & Output 05/07/20 05/08/20 05/09/20 05/10/20 23:59 23:59 23:59 23:59 Intake Total 530 410 560 300 Output Total 1100 1500 Balance -570 410 -940 300 Meds/Results Medications: Active Medications Generic Name Dose Route Start Last Admin Trade Name Freq PRN Reason Stop Dose Admin Albuterol 2.5 mg 04/26/20 14:11 05/08/20 14:04 Albuterol Sulf Neb 2.5mg/0.5ml INHALATION 2.5 mg Q4H PRN Administration Wheezing Aspirin 325 mg 05/05/20 18:55 05/10/20 09:37 Aspirin PO 325 mg DAILY@0800 CYNTHIA Administration Atorvastatin Ca
--- NOTE | 2020-05-10 15:03 | PM.PNNEP ---
Progress Note: A&P Assessment and Plan (1) End stage renal disease: Code(s): N18.6 - End stage renal disease Status: Chronic Assessment and Plan: due to acute illness/infection/hypotension on top of her known advanced kidney disease at baseline (CKD stage V) - given her known CKD, AV access was placed several months ago for her eventual need for renal replacement therapy not making much urine and noted rise in creatinine between dialysis treatments advanced CKD due to diabetes, hypertension, and vascular disease HD tomorrow and continue T/T/S schedule for now until outpatient dialysis schedule finalized follow electrolytes, volume status, and clearance (2) Encephalopathy: Code(s): G93.40 - Encephalopathy, unspecified Status: Acute Assessment and Plan: slow improvement noted follow mentation (3) Metabolic acidosis: Code(s): E87.2 - Acidosis Status: Acute Assessment and Plan: resolved with dialytic intervention (4) Pneumonia: Code(s): J18.9 - Pneumonia, unspecified organism Status: Acute Assessment and Plan: completed treatment/antibiotics respiratory status significantly better continue supportive therapy (5) Anemia: Code(s): D64.9 - Anemia, unspecified Status: Acute Assessment and Plan: due to advanced CKD and acute illness getting Epogen with dialysis follow trend of H/H (6) Diabetes: Code(s): E11.9 - Type 2 diabetes mellitus without complications Status: Acute Assessment and Plan: follow accuchecks on SSI Will continue to follow. Subjective Date/time seen: 05/10/20 15:03 Tolerated dialysis yesterday without any acute issues or problems; otherwise, no acute complaints voiced; no events overnight or earlier this AM; no apparent distress. Exam Narrative: Exam Narrative: General: WD/WN female in NAD Heart: normal S1 and S2; no rub Lungs: some bibasilar crackles present Abdomen: soft, nontender, nondistended, positive bowel sounds Extremities: no cyanosis or clubbing; trace edema Skin: no rash or nodules Objective Data Vital Signs Vital Signs: Vital Signs Temp Pulse Resp BP Pulse Ox 05/10/20 13:56 82 20 05/10/20 13:45 78 20 05/10/20 08:32 91 05/10/20 08:18 85 20 05/10/20 08:10 83 20 91 05/10/20 08:00 94 05/10/20 06:00 36.8 C 85 18 118/57 L 97 05/09/20 22:00 37.2 C 87 20 116/48 L 98 05/09/20 20:18 88 20 05/09/20 20:12 94 05/09/20 20:08 86 20 Intake/Output Intake/Output: Intake & Output 05/07/20 05/08/20 05/09/20 05/10/20 23:59 23:59 23:59 23:59 Intake Total 530 410 560 300 Output Total 1100 1500 Balance -570 410 -940 300 Meds/Results Medications: Active Medications Generic Name Dose Route Start Last Admin Trade Name Freq PRN Reason Stop Dose Admin Albuterol 2.5 mg 04/26/20 14:11 05/08/20 14:04 Albuterol Sulf Neb 2.5mg/0.5ml INHALATION 2.5 mg Q4H PRN Administration Wheezing Aspirin 325 mg 05/05/20 18:55 05/10/20 09:37 Aspirin PO 325 mg DAILY@0800 [facility] Administration Atorvastatin Calcium 20 mg 05/05/20 18:55 05/10/20 09:37 Lipitor PO 20 mg DAILY CYNTHIA Administration Calcium Acetate 667 mg 05/05/20 18:55 05/10/20 13:34 Phoslo PO 667 mg TID CYNTHIA Administration Dextrose 12.5 gm 04/27/20 09:52 05/04/20 05:43 Dextrose 50% Syringe IV PUSH 12.5 gm PRN PRN Administration Hypoglycemia Protocol Docusate Sodium 100 mg 05/10/20 21:00 Colace Capsule PO Q12HR [facility] Epoetin Imke 10,000 units 04/27/20 11:55 05/09/20 14:43 Epogen IV PUSH Not Given [facility] Famotidine 20 mg 05/08/20 09:05 05/10/20 09:37 Pepcid PO 20 mg Q12HR CYNTHIA Administration Glucagon 1 mg 04/27/20 09:52 Glucagon For Inj IM PRN PRN Hypoglycemia Protocol Glucose 15 gm 04/27/20 09:52
[2020-05-10] MEDS: polyethylene glycoL 3350 17 GM POWD.PACK PO (15:35)
--- NOTE | 2020-05-10 15:53 | PM.IMPN ---
Progress Note: A&P Assessment and Plan (1) Acute respiratory failure: Qualifiers: Respiratory failure complication: hypoxia Qualified Code(s): J96.01 - Acute respiratory failure with hypoxia Code(s): J96.00 - Acute respiratory failure, unspecified whether with hypoxia or hypercapnia Status: Acute Assessment and Plan: Patient was in respiratory distress in the field and attempted intubation but was unsuccessful. Successfully intubated and placed on mechanically ventilated here. Thought secondary to fluid overload and pneumonia. Stabilized and was able to be extubated on 05/03/20. Recovering well. Currently on 1L. Okay for discharge. (2) Pneumonia: Qualifiers: Pneumonia type: due to unspecified organism Laterality: bilateral Lung location: lower lobe of lung Qualified Code(s): J18.9 - Pneumonia, unspecified organism Code(s): J18.9 - Pneumonia, unspecified organism Status: Acute Assessment and Plan: Atelectasis versus pneumonia noted on chest CT. Started on azithromycin and rocephin but switched to doxycycline and rocephin due to amiodarone drip. Finished 9 day course 05/04. Sputum and blood cultures negative. Pt had thoracentesis for pleural effusion with no evidence of infection. (3) Urinary tract infection: Qualifiers: Urinary tract infection type: acute cystitis Hematuria presence: with hematuria Qualified Code(s): N30.01 - Acute cystitis with hematuria Code(s): N39.0 - Urinary tract infection, site not specified Status: Acute Assessment and Plan: Urine culture is growing pansensitive EColi. Treated with Rocephin and finished on 05/04/20. (4) Metabolic acidosis: Code(s): E87.2 - Acidosis Status: Acute Assessment and Plan: Resolved. Thought secondary to renal failure and/or infection. (5) Acute kidney injury superimposed on chronic kidney disease: Code(s): N17.9 - Acute kidney failure, unspecified; N18.9 - Chronic kidney disease, unspecified Status: Acute Assessment and Plan: Patient has CKD V felt to be at end stage. Plan for senior care HD. Appreciate nephrology input. (6) Type 2 diabetes mellitus: Qualifiers: Diabetes mellitus senior care insulin use: with senior care use Diabetes mellitus complication status: with kidney complications Diabetes mellitus complication detail: with chronic kidney disease Chronic kidney disease stage: on chronic dialysis Qualified Code(s): E11.22 - Type 2 diabetes mellitus with diabetic chronic kidney disease; N18.6 - End stage renal disease; Z79.4 - halfway (current) use of insulin; Z99.2 - Dependence on renal dialysis Code(s): E11.9 - Type 2 diabetes mellitus without complications Status: Acute Assessment and Plan: A1c 8.2. Glucose reviewed on 05/10/20. Glucose elevated at times. Continue Accu-Cheks covering with sliding scale insulin. Hypoglycemic protocol available as needed. Continue Lantus at the reduced dose of 5U qd. Continue to follow. (7) Congestive heart failure: Onset Date: ~12/2019 Qualifiers: Heart failure type: combined systolic and diastolic Heart failure chronicity: acute on chronic Qualified Code(s): I50.43 - Acute on chronic combined systolic (congestive) and diastolic (congestive) heart failure Code(s): I50.9 - Heart failure, unspecified Status: Acute Assessment and Plan: Patient with mixed systolic and diastolic congestive heart failure. Ischemic cardiomyopathy with improved ejection fraction to 50 to 55% on echo in December 2019. Now EF 25%. 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 Pt had some atrial tachycardia andwas placed on amiodarone drip earlier during this hospitalization; currently off amiodarone now. Appreciate Cardiology input (8) Acute on chronic anemia:
[2020-05-10 16:38] LABS: Glucose Point of Care 195 (65-105)
[2020-05-10] MEDS: DOCUSATE SODIUM 100 MG CAPSULE PO (20:53)
[2020-05-10] MEDS: INSULIN ASPART (*BKC) 100 UNITS/ML SUB-Q (20:53)
[2020-05-10] MEDS: MELATONIN 3 MG TABLET PO (20:53)
[2020-05-10 21:15] LABS: Glucose Point of Care 202 (65-105)
[2020-05-10 22:14] LABS: SARS-CoV-2 RNA PCR Negative
[2020-05-11] VITALS (20 sets, daily range): BP systolic 100–146; BP diastolic 46–80; PULSE 80–133; RESP 18–24; TEMP 36–37; O2SAT 91–100
[2020-05-11] MEDS: HEPARIN SODIUM 5,000 UNITS/ML VIAL 5000 UNITS SUB-Q (05:43)
[2020-05-11 05:50] LABS: Glucose Point of Care 128 (65-105)
[2020-05-11 08:39] LABS: Glucose Point of Care 130 (65-105)
[2020-05-11] MEDS: INSULIN GLARGINE (*BKC) 100 UNITS/ML SUB-Q (08:53)
[2020-05-11] MEDS: lisinopriL 5 MG TABLET PO ×2 (08:55→20:33)
[2020-05-11] MEDS: CALCIUM ACETATE 667 MG TABLET PO ×3 (08:55→17:16)
[2020-05-11] MEDS: DOCUSATE SODIUM 100 MG CAPSULE PO ×2 (08:55→20:30)
[2020-05-11] MEDS: MIDODRINE HCL 10 MG TABLET PO ×3 (08:55→17:16)
[2020-05-11] MEDS: ASPIRIN 325 MG TABLET PO (08:55)
[2020-05-11] MEDS: FAMOTIDINE 20 MG TABLET PO ×2 (08:56→20:33)
[2020-05-11] MEDS: TOLNAFTATE 1% POWDER 45 GM BTL 1 APPLIC TOPICAL ×2 (08:56→20:35)
[2020-05-11] MEDS: ATORVASTATIN 20 MG TABLET PO (08:56)
--- NOTE | 2020-05-11 09:07 | PCPTNOTE ---
The patient treatment was not able to be completed on 05/11/20, due to going to hemodialysis. Will plan to continue treatment per plan of care.
--- NOTE | 2020-05-11 10:04 | PM.PNCARD ---
Progress Note: A&P Assessment and Plan (1) Elevated troponin: Code(s): R79.89 - Other specified abnormal findings of blood chemistry Status: Acute Assessment and Plan: -Multifactorial etiology, peaked at 1.3. Most likely demand ischemia with known underlying CAD, acute on chronic renal failure, hypotension/septic shock on pressor support. COVID-19 negative. Doubt ACS. Conservative therapy at this time, -LV systolic dysfunction as above, new cardiomyopathy, worse than a few months ago. -Dialysis for volume removal -blood pressure does seem a bit more stable. Tolerating lisinopril to 5 mg daily. will increased up her lisinopril to 5 mg p.o. b.i.d. No beta-mamie at this point. -Echo 04/30/2020:Mild LV enlargement, severe LVH, severe LV systolic dysfunction, ejection fraction 25-30%; abnormal diastolic function. 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 Mild RV enlargement. Systolic and diastolic ventricular septal flattening consistent with elevated RV pressure and volume. Mild left atrial enlargement. moderate mitral regurgitation. Moderate prosthetic valve aortic stenosis, v max 2.8 m/sec, peak gradient 32, mean gradient 16 mmHg, DVI 0.39, JUAN M 1 cm2. Moderate to severe tricuspid regurgitation, moderate pulmonary hypertension, RVSP 53 mmHg. When compared to echocardiogram from 01/12/2020 LV systolic function is much worse. (2) Coronary artery disease involving [place] coronary artery of [place] heart: Qualifiers: Associated angina: without angina Qualified Code(s): I25.10 - Atherosclerotic heart disease of [place] coronary artery without angina pectoris Code(s): I25.10 - Atherosclerotic heart disease of [place] coronary artery without angina pectoris Status: Acute Assessment and Plan: As above, continue medical therapy aspirin, statin. Did not tolerate beta-mamie therapy 04/27/2020. (3) History of aortic valve replacement with bioprosthetic valve: Code(s): Z95.3 - Presence of xenogenic heart valve Status: Acute Assessment and Plan: Mild to moderate prosthetic stenosis on echo this admission. (4) Acute respiratory failure: Qualifiers: Respiratory failure complication: hypoxia Qualified Code(s): J96.01 - Acute respiratory failure with hypoxia Code(s): J96.00 - Acute respiratory failure, unspecified whether with hypoxia or hypercapnia Status: Acute Assessment and Plan: Pneumonia management per Critical Care Service and Dr. Saini. Mental status improving. COVID-19 negative. (5) Septic shock: Code(s): A41.9 - Sepsis, unspecified organism; R65.21 - Severe sepsis with septic shock Status: Acute Assessment and Plan: Pressors have been weaned off. Continue antibiotics and supportive care. (6) Acute kidney injury superimposed on chronic kidney disease: Code(s): N17.9 - Acute kidney failure, unspecified; N18.9 - Chronic kidney disease, unspecified Status: Acute Assessment and Plan: Volume overload 2nd CKD and possibly some CHF. Hemodialysis initiated and needs more volume removal. Her edema is worsening. Will try to give her a dose IV furosemide 40 mg to see if there is any response. Appreciate Nephrology involvement. (7) Pneumonia: Qualifiers: Pneumonia type: due to unspecified organism Laterality: bilateral Lung location: lower lobe of lung Qualified Code(s): J18.9 - Pneumonia, unspecified organism Code(s): J18.9 - Pneumonia, unspecified organism Status: Acute Assessment and Plan: As above. Per Critical Care Service. (8) LBBB (left bundle branch block): Code(s): I44.7 - Left bundle-branch block, unspecified Status: Acute Assessment and Plan: Chronic. __
--- NOTE | 2020-05-11 10:33 | ECG_ITS ---
Measurements Intervals [place] Rate: 122 P: FL: 0 QRS: 163 QRSD: 166 T: 111 QT: 363 QTc: 519 Interpretive Statements ATRIAL TACHYCARDIA WITH RAPID VENTRICULAR RESPONSE RIGHT AXIS DEVIATION LEFT BUNDLE BRANCH BLOCK ANTEROSEPTAL INFARCT OR DUE TO LBBB BASELINE WANDER- I, II, III, AVR, AVL, AVF, V6 ABNORMAL ECG Electronically Signed On 05-11-2020 13:00:37 CDT by Simon Malave D.O.
--- NOTE | 2020-05-11 10:48 | P.PNNP_ITS ---
Progress Note: A&P Assessment and Plan (1) End stage renal disease: Code(s): N18.6 - End stage renal disease Status: Chronic Assessment and Plan: * due to acute illness/infection/hypotension on top of her known advanced kidney disease at baseline (CKD stage V) - given her known CKD, AV access was placed several months ago for her eventual need for renal replacement therapy * not making much urine and noted rise in creatinine between dialysis treatments * advanced CKD due to diabetes, hypertension, and vascular disease * only partial HD today (~ 1 hour) due to rapid response during dialysis - consider re-attempting HD later today vs tomorrow depending on evaluation of symptoms that led to rapid response * follow electrolytes, volume status, and clearance (2) Chest pain: Code(s): R07.9 - Chest pain, unspecified Status: Acute Assessment and Plan: * along with acute shortness of breath and abdominal pain * appeared somewhat pleuritic -- possible PE? * however, also has significant cardiac risk factors in conjunction with cardiomyopathy * checking EKG, troponins, CXR...consider CT scan PE protocol as well * discussed with Dr. Stanley (3) Encephalopathy: Code(s): G93.40 - Encephalopathy, unspecified Status: Acute Assessment and Plan: * slow improvement noted * follow mentation (4) Pneumonia: Qualifiers: Laterality: bilateral Lung location: lower lobe of lung Pneumonia type: due to unspecified organism Qualified Code(s): J18.9 - Pneumonia, unspecified organism Code(s): J18.9 - Pneumonia, unspecified organism Status: Acute Assessment and Plan: * completed treatment/antibiotics * respiratory status significantly better * continue supportive therapy (5) Anemia: Code(s): D64.9 - Anemia, unspecified Status: Acute Assessment and Plan: * due to advanced CKD and acute illness * getting Epogen with dialysis * follow trend of H/H (6) Diabetes: Code(s): E11.9 - Type 2 diabetes mellitus without complications Status: Acute Assessment and Plan: * follow accuchecks * on SSI Will continue to follow. Subjective Date/time seen: 05/11/20 10:48 Rapid response called after sudden shortness of breath along with chest/abdominal pain after being on dialysis for about an hour; dialysis treatment aborted due to this event; only complaint prior to dialysis was that of being tired per nursing. Exam Narrative: Exam Narrative: General: WD/WN female in mild distress Heart: normal S1 and S2; no rub Lungs: some bibasilar crackles present Abdomen: soft, nontender, nondistended, positive bowel sounds Extremities: no cyanosis or clubbing; trace - 1+ edema (chronic) Skin: warm and dry Objective Data Vital Signs Vital Signs: Vital Signs Temp Pulse Resp BP Pulse Ox 05/11/20 09:30 36.7 C 85 20 122/55 L 05/11/20 08:46 98 05/11/20 06:00 36.4 C 88 20 137/66 94 05/10/20 22:00 36.3 C L 86 20 136/58 L 95 05/10/20 19:56 88 20 05/10/20 19:47 94 05/10/20 19:45 87 20 05/10/20 14:00 36.2 C L 91 18 129/64 90 05/10/20 13:56 82 20 05/10/20 13:45 78 20 Intake/Output Intake/Output: Intake & Output 05/08/20 05/09/20 05/10/20 05/11/20 23:59
--- NOTE | 2020-05-11 10:48 | PM.PNNEP ---
Progress Note: A&P Assessment and Plan (1) End stage renal disease: Code(s): N18.6 - End stage renal disease Status: Chronic Assessment and Plan: due to acute illness/infection/hypotension on top of her known advanced kidney disease at baseline (CKD stage V) - given her known CKD, AV access was placed several months ago for her eventual need for renal replacement therapy not making much urine and noted rise in creatinine between dialysis treatments advanced CKD due to diabetes, hypertension, and vascular disease only partial HD today (~ 1 hour) due to rapid response during dialysis - consider re-attempting HD later today vs tomorrow depending on evaluation of symptoms that led to rapid response follow electrolytes, volume status, and clearance (2) Chest pain: Code(s): R07.9 - Chest pain, unspecified Status: Acute Assessment and Plan: along with acute shortness of breath and abdominal pain appeared somewhat pleuritic -- possible PE? however, also has significant cardiac risk factors in conjunction with cardiomyopathy checking EKG, troponins, CXR...consider CT scan PE protocol as well discussed with Dr. Stanley (3) Encephalopathy: Code(s): G93.40 - Encephalopathy, unspecified Status: Acute Assessment and Plan: slow improvement noted follow mentation (4) Pneumonia: Qualifiers: Laterality: bilateral Lung location: lower lobe of lung Pneumonia type: due to unspecified organism Qualified Code(s): J18.9 - Pneumonia, unspecified organism Code(s): J18.9 - Pneumonia, unspecified organism Status: Acute Assessment and Plan: completed treatment/antibiotics respiratory status significantly better continue supportive therapy (5) Anemia: Code(s): D64.9 - Anemia, unspecified Status: Acute Assessment and Plan: due to advanced CKD and acute illness getting Epogen with dialysis follow trend of H/H (6) Diabetes: Code(s): E11.9 - Type 2 diabetes mellitus without complications Status: Acute Assessment and Plan: follow accuchecks on SSI Will continue to follow. Subjective Date/time seen: 05/11/20 10:48 Rapid response called after sudden shortness of breath along with chest/abdominal pain after being on dialysis for about an hour; dialysis treatment aborted due to this event; only complaint prior to dialysis was that of being tired per nursing. Exam Narrative: Exam Narrative: General: WD/WN female in mild distress Heart: normal S1 and S2; no rub Lungs: some bibasilar crackles present Abdomen: soft, nontender, nondistended, positive bowel sounds Extremities: no cyanosis or clubbing; trace - 1+ edema (chronic) Skin: warm and dry Objective Data Vital Signs Vital Signs: Vital Signs Temp Pulse Resp BP Pulse Ox 05/11/20 09:30 36.7 C 85 20 122/55 L 05/11/20 08:46 98 05/11/20 06:00 36.4 C 88 20 137/66 94 05/10/20 22:00 36.3 C L 86 20 136/58 L 95 05/10/20 19:56 88 20 05/10/20 19:47 94 05/10/20 19:45 87 20 05/10/20 14:00 36.2 C L 91 18 129/64 90 05/10/20 13:56 82 20 05/10/20 13:45 78 20 Intake/Output Intake/Output: Intake & Output 05/08/20 05/09/20 05/10/20 05/11/20 23:59 23:59 23:59 23:59 Intake Total 410 560 780 0 Output Total 1500 Balance 410 -940 780 0 Meds/Results Medications: Active Medications Generic Name Dose Route Start Last Admin Trade Name Freq PRN Reason Stop Dose Admin Albuterol 2.5 mg 04/26/20 14:11 05/08/20 14:04 Albuterol Sulf Neb 2.5mg/0.5ml INHALATION 2.5 mg Q4H PRN Administration Wheezing Aspirin 325 mg 05/05/20 18:55 05/11/20 08:55 Aspirin PO 325 mg DAILY@0800 CYNTHIA Administration Atorvastatin Calcium 20 mg 05/05/20 18:55 05/11/20 08:56 Lipitor PO 20 mg DAILY CYNTHIA Administration Calcium Acetate 667 mg 05/05/20 18:55
[2020-05-11 10:53] LABS: Glucose Point of Care 256 (65-105)
[2020-05-11 11:02] LABS: Hematocrit 28.7 % (37.0-47.0); Hemoglobin 8.4 g/dL (12.0-15.0); Mean Corpuscular HGB Conc 29.3 g/dl (32-36); Mean Platelet Volume 10.1 fl (7.4-10.4); Platelet Count Result 261 k/mm3 (150-375); Red Cell Distribution Width 17.6 % (11.5-14.5); White Blood Count 26.7 K/mm3 (4.5-10.0)
--- NOTE | 2020-05-11 11:02 | PM.IMPN ---
Progress Note: A&P Assessment and Plan (1) Chest pain: Code(s): R07.9 - Chest pain, unspecified Status: Acute Assessment and Plan: Patient with acute onset CP during HD. Consider cardiac ischemia. EKG performed showing no acute changes. EKG reviewed and doubt AFib. CP was 10/10 adn BP 146/56 so NTG SL given. After 5minutes, CP had not changed significantly so another NTG SL (BP 111/59) given and pain subsided to 8/10 and she seemed more comfortable. HR was elevated but improved with control of pain. CXR taken showing persistent right basilar airspace disease and pulmonary edema. She had dialysis for about 40 minutes and about 400mL removed. Patietn does state there is a pleuritc component to the pain as well so consider PE. She does have an allergy to contrast media. Labs including Trop ordered. Doubt infectious process; the lung infiltrate has been noted earlier and she has completed a round of abx. Check dopplers and start Heparin. Morphine if she is still having pain. If dopplers negative, then will pre-treat for contrast allergy. On re-assessment, pain down to 4/10. Patient refuses Morphine. She has no hx of panic attacks. called and updated. Cardiology informed. Trop 0.08 (was 1.3 on 04/26). WBC 26.7K (13.8 two days ago) with stable Hgb at 8.4. COVID negative yesterday. Will check Blood and urine cultures. Patient still with central line. Start heparin gtt. Hold on abx for now. 40 minutes spent on critical care time (2) Acute respiratory failure: Qualifiers: Respiratory failure complication: hypoxia Qualified Code(s): J96.01 - Acute respiratory failure with hypoxia Code(s): J96.00 - Acute respiratory failure, unspecified whether with hypoxia or hypercapnia Status: Acute Assessment and Plan: Patient was in respiratory distress in the field and attempted intubation but was unsuccessful. Successfully intubated and placed on mechanically ventilated here. Thought secondary to fluid overload and pneumonia. Stabilized and was able to be extubated on 05/03/20. Able to be weaned to 1L and has remained stable. (3) Pneumonia: Qualifiers: Laterality: bilateral Lung location: lower lobe of lung Pneumonia type: due to unspecified organism Qualified Code(s): J18.9 - Pneumonia, unspecified organism Code(s): J18.9 - Pneumonia, unspecified organism Status: Acute Assessment and Plan: Atelectasis versus pneumonia noted on chest CT. Started on azithromycin and rocephin but switched to doxycycline and rocephin due to amiodarone drip. Finished 9 day course 05/04/20. Sputum and blood cultures negative. Pt had Right thoracentesis for pleural effusion on 05/01/20 with no evidence of infection. CXR today showing improving pulmonary edema and stable RLL airspace disease. Doubt recurrent PNA. (4) Urinary tract infection: Qualifiers: Hematuria presence: with hematuria Urinary tract infection type: acute cystitis Qualified Code(s): N30.01 - Acute cystitis with hematuria Code(s): N39.0 - Urinary tract infection, site not specified Status: Acute Assessment and Plan: Urine culture is growing pansensitive EColi. Treated with Rocephin and finished on 05/04/20. (5) Metabolic acidosis: Code(s): E87.2 - Acidosis Status: Acute Assessment and Plan: Resolved. Thought secondary to renal failure and/or infection. (6) Acute kidney injury superimposed on chronic kidney disease: Code(s): N17.9 - Acute kidney failure, unspecified; N18.9 - Chronic kidney disease, unspecified Status: Acute Assessment and Plan: Patient has CKD V felt to be at end stage. 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 Appreciate nephrology input. (7) Type 2 diabetes mellitus: Qualifiers: Chronic kidney disease stage: on chronic dialysis Diabetes mellitus complication detail: with chronic kidney dise
[2020-05-11 11:13] LABS: Partial Thromboplastin Time 27.1 SECONDS (22.3-36.8)
--- NOTE | 2020-05-11 11:15 | PC.NURSE ---
This patient, Martha Reid, was received from Dialysis originally in [id number] on 05/11/20 at 1115. Personal belongings list checked and signed. Report received from BRITTANY Malcolm. Patient/family oriented to unit policies and routines
[2020-05-11 11:16] LABS: Blood Urea Nitrogen 37 mg/dL (7-17); Calcium 8.2 mg/dL (8.4-10.2); Carbon Dioxide 30 mmol/L (22-30); Chloride 98 mmol/L (98-107); Estimated CRCL calculation 13 ml/min; Estimated Glomerular Filt Rate 11; Glucose 213 mg/dL (65-105); Phosphorus 4.2 mg/dL (2.5-4.5); Potassium 4.6 mmol/L (3.4-5.0); Sodium 137 mmol/L (137-145)
[2020-05-11 11:33] LABS: Troponin I 0.081 ng/mL (0.000-0.034)
[2020-05-11 11:44] LABS: Glucose Point of Care 243 (65-105)
--- NOTE | 2020-05-11 12:24 | PCSTNOTE ---
Attempted to see pt. twice for ST this morning. Pt. was off the floor/out of room during both attempts.
[2020-05-11] MEDS: HEPARIN SODIUM 5,000 UNITS/ML VIAL 5500 UNITS IV PUSH (13:15)
[2020-05-11] MEDS: HEPARIN SOD/D5W 100 UNITS/ML 25,000 UNITS/250 ML BAG 12 UNITS IV CONT (13:16)
[2020-05-11] MEDS: NITROGLYCERIN OINTMENT 1 INCH DOSE 0.5 INCH TRANSDERM ×2 (13:16→17:17)
[2020-05-11 13:28] LABS: Glucose Point of Care 190 (65-105)
[2020-05-11 15:03] LABS: Troponin I 0.086 ng/mL (0.000-0.034)
[2020-05-11 17:00] LABS: Glucose Point of Care 176 (65-105)
[2020-05-11 18:16] LABS: Troponin I 0.098 ng/mL (0.000-0.034)
[2020-05-11] MEDS: predniSONE 40 MG, predniSONE 10 MG 50 MG PO (20:31)
[2020-05-11] MEDS: MELATONIN 3 MG TABLET PO (20:33)
[2020-05-11 20:41] LABS: Glucose Point of Care 157 (65-105)
[2020-05-12] VITALS (34 sets, daily range): BP systolic 109–162; BP diastolic 45–85; PULSE 75–95; RESP 16–26; TEMP 35.7–37.1; O2SAT 97–100
[2020-05-12] MEDS: NITROGLYCERIN OINTMENT 1 INCH DOSE 0.5 INCH TRANSDERM ×2 (01:00→06:12)
[2020-05-12] MEDS: predniSONE 40 MG, predniSONE 10 MG 50 MG PO ×2 (01:03→06:56)
[2020-05-12 02:08] LABS: Partial Thromboplastin Time 140.3 SECONDS (22.3-36.8)
[2020-05-12 04:42] LABS: Basophils Percent Auto 0.2 % (0.2-1.2); Hematocrit 28.2 % (37.0-47.0); Hemoglobin 8.1 g/dL (12.0-15.0); Immature Granulocyte Absolute 0.06 K/mm3 (0.00-0.031); Immature Granulocyte Percent A 0.4 % (0-0.5); Lymphocytes Percent Auto 4.6 % (18.3-44.2); Mean Corpuscular HGB Conc 28.7 g/dl (32-36); Mean Corpuscular Hemoglobin 29.1 pg (26-34); Mean Corpuscular Volume 101.4 fl (80-100); Mean Platelet Volume 10.2 fl (7.4-10.4); Monocytes Absolute Auto 0.1 K/mm3 (0.1-0.6); Monocytes Percent Auto 0.7 % (2.6-8.5); Neutrophils Absolute Auto 14.2 K/mm3 (1.3-6.7); Neutrophils Percent Auto 94.1 % (45.5-73.1); Nucleated Red Blood Cells Absolute Auto 0.1 K/mm3 (0.0-0.012); Nucleated Red Blood Cells Perc 0.3 % (0.0-0.2); Platelet Count Result 254 k/mm3 (150-375); Red Blood Count 2.78 M/mm3 (4.2-5.4); Red Cell Distribution Width 17.8 % (11.5-14.5); White Blood Count 15.1 K/mm3 (4.5-10.0)
[2020-05-12 04:56] LABS: Albumin Level 3.5 g/dL (3.5-5.1); Blood Urea Nitrogen 44 mg/dL (7-17); Calcium 8.3 mg/dL (8.4-10.2); Carbon Dioxide 30 mmol/L (22-30); Chloride 98 mmol/L (98-107); Estimated CRCL calculation 11 ml/min; Estimated Glomerular Filt Rate 9; Glucose 217 mg/dL (65-105); Magnesium 2.1 mg/dL (1.6-2.3); Phosphorus 5.6 mg/dL (2.5-4.5); Potassium 4.8 mmol/L (3.4-5.0); Sodium 138 mmol/L (137-145)
[2020-05-12 05:23] LABS: Hypochromasia 1+ (NORMAL); Macrocytosis 2+ (NORMAL); Platelet Estimate Adequate (Adequate)
[2020-05-12 07:40] LABS: Glucose Point of Care 215 (65-105)
[2020-05-12] MEDS: INSULIN GLARGINE (*BKC) 100 UNITS/ML SUB-Q (08:23)
[2020-05-12] MEDS: EPOETIN ALFA 20,000 UNITS/ML VIAL 20000 UNITS IV PUSH (10:07)
[2020-05-12 10:42] LABS: Partial Thromboplastin Time 71.4 SECONDS (22.3-36.8)
--- NOTE | 2020-05-12 10:48 | PM.PNCARD ---
Progress Note: A&P Assessment and Plan (1) Elevated troponin: Code(s): R79.89 - Other specified abnormal findings of blood chemistry Status: Acute Assessment and Plan: -Multifactorial etiology, peaked at 1.3. Most likely demand ischemia with known underlying CAD, acute on chronic renal failure, hypotension/septic shock on pressor support. COVID-19 negative. Doubt ACS. Conservative therapy at this time, -LV systolic dysfunction as above, new cardiomyopathy, worse than a few months ago. -Dialysis for volume removal -blood pressure does seem a bit more stable. Continue lisinopril No beta-mamie at this point. -Echo 04/30/2020:Mild LV enlargement, severe LVH, severe LV systolic dysfunction, ejection fraction 25-30%; abnormal diastolic function. 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 Mild RV enlargement. Systolic and diastolic ventricular septal flattening consistent with elevated RV pressure and volume. Mild left atrial enlargement. moderate mitral regurgitation. Moderate prosthetic valve aortic stenosis, v max 2.8 m/sec, peak gradient 32, mean gradient 16 mmHg, DVI 0.39, JUAN M 1 cm2. Moderate to severe tricuspid regurgitation, moderate pulmonary hypertension, RVSP 53 mmHg. When compared to echocardiogram from 01/12/2020 LV systolic function is much worse. (2) Coronary artery disease involving [place] coronary artery of [place] heart: Qualifiers: Associated angina: without angina Qualified Code(s): I25.10 - Atherosclerotic heart disease of [place] coronary artery without angina pectoris Code(s): I25.10 - Atherosclerotic heart disease of [place] coronary artery without angina pectoris Status: Acute Assessment and Plan: As above, continue medical therapy aspirin, statin. Did not tolerate beta-mamie therapy 04/27/2020. Discontinue nitroglycerin paste and switch her to isosorbide mononitrate 30 mg p.o. daily Continue heparin for another 24 hours. Consider stress testing before discharge now that she is dialysis dependent (3) History of aortic valve replacement with bioprosthetic valve: Code(s): Z95.3 - Presence of xenogenic heart valve Status: Acute Assessment and Plan: Mild to moderate prosthetic stenosis on echo this admission. (4) Acute respiratory failure: Qualifiers: Respiratory failure complication: hypoxia Qualified Code(s): J96.01 - Acute respiratory failure with hypoxia Code(s): J96.00 - Acute respiratory failure, unspecified whether with hypoxia or hypercapnia Status: Acute Assessment and Plan: Pneumonia management per Critical Care Service and Dr. Saini. Mental status improving. COVID-19 negative. (5) Septic shock: Code(s): A41.9 - Sepsis, unspecified organism; R65.21 - Severe sepsis with septic shock Status: Acute Assessment and Plan: Pressors have been weaned off. Continue antibiotics and supportive care. (6) Acute kidney injury superimposed on chronic kidney disease: Code(s): N17.9 - Acute kidney failure, unspecified; N18.9 - Chronic kidney disease, unspecified Status: Acute Assessment and Plan: Volume overload 2nd CKD and possibly some CHF. Hemodialysis initiated and needs more volume removal. Her edema is worsening. Will try to give her a dose IV furosemide 40 mg to see if there is any response. Appreciate Nephrology involvement. (7) Pneumonia: Qualifiers: Pneumonia type: due to unspecified organism Laterality: bilateral Lung location: lower lobe of lung Qualified Code(s): J18.9 - Pneumonia, unspecified organism Code(s): J18.9 - Pneumonia, unspecified organism Status: Acute Assessment and Plan: As above. Per Critical Care Service. (8) LBBB (left bundle branch block): Code(s):
--- NOTE | 2020-05-12 11:49 | P.PNNP_ITS ---
Progress Note: A&P Assessment and Plan (1) End stage renal disease: Code(s): N18.6 - End stage renal disease Status: Chronic Assessment and Plan: * due to acute illness/infection/hypotension on top of her known advanced kidney disease at baseline (CKD stage V) - given her known CKD, AV access was placed several months ago for her eventual need for renal replacement therapy * not making much urine and noted rise in creatinine between dialysis treatments * advanced CKD due to diabetes, hypertension, and vascular disease * HD today and resume T/T/S schedule next week (this will be her outpatient dialysis schedule) * follow electrolytes, volume status, and clearance (2) Chest pain: Code(s): R07.9 - Chest pain, unspecified Status: Acute Assessment and Plan: * along with acute shortness of breath and abdominal pain yesterday * appeared somewhat pleuritic -- possible PE? * EKG and troponins noted; on heparin gtt * F/U on results of CT of chest PE protocol (3) Encephalopathy: Code(s): G93.40 - Encephalopathy, unspecified Status: Acute Assessment and Plan: * slow improvement noted * follow mentation (4) Pneumonia: Qualifiers: Pneumonia type: due to unspecified organism Laterality: bilateral Lung location: lower lobe of lung Qualified Code(s): J18.9 - Pneumonia, unspecified organism Code(s): J18.9 - Pneumonia, unspecified organism Status: Acute Assessment and Plan: * completed treatment/antibiotics * respiratory status significantly better * continue supportive therapy (5) Anemia: Code(s): D64.9 - Anemia, unspecified Status: Acute Assessment and Plan: * due to advanced CKD and acute illness * getting Epogen with dialysis * follow trend of H/H (6) Diabetes: Code(s): E11.9 - Type 2 diabetes mellitus without complications Status: Acute Assessment and Plan: * follow accuchecks * on SSI Will continue to follow. Subjective Date/time seen: 05/12/20 11:49 Tolerating dialysis at the time of my visit (seen on HD at ~ 11:35AM); in comparison to yesterday, she feels significantly better; empiricially on heparin gtt due to concerns for possible PE -- CT of chest this AM (results pending). Exam Narrative: Exam Narrative: General: WD/WN female in no acute distress Heart: normal S1 and S2; no rub Lungs: decreased at bases Abdomen: soft, nontender, nondistended, positive bowel sounds Extremities: no cyanosis or clubbing; trace - 1+ edema (chronic) Skin: warm and intact Objective Data Vital Signs Vital Signs: Vital Signs Temp Pulse Resp BP Pulse Ox 05/12/20 11:30 88 120/70 05/12/20 11:15 87 137/69 05/12/20 11:00 84 134/67 05/12/20 10:47 84 141/64 H 05/12/20 10:30 86 141/74 H 05/12/20 10:15 85 147/76 H 05/12/20 10:01 84 145/77 H 05/12/20 10:00 82 05/12/20 09:45 78 148/73 H 05/12/20 09:30 78 142/82 H 05/12/20 09:15 82 158/84 H 05/12/20 09:00 86 158/83 H 05/12/20 08:45 85 162/81 H 05/12/20 08:31 86 155/82 H 05/12/20 08:20 36.4 C L 90 26 H 160/85 H 05/12/20 08:00 86 05/12/20 07:32 36.2 C L 88 24 H 145/67 H 100 05/12/20 05:35 94 05/12/20 04:00 85 16 98
--- NOTE | 2020-05-12 11:49 | PM.PNNEP ---
Progress Note: A&P Assessment and Plan (1) End stage renal disease: Code(s): N18.6 - End stage renal disease Status: Chronic Assessment and Plan: due to acute illness/infection/hypotension on top of her known advanced kidney disease at baseline (CKD stage V) - given her known CKD, AV access was placed several months ago for her eventual need for renal replacement therapy not making much urine and noted rise in creatinine between dialysis treatments advanced CKD due to diabetes, hypertension, and vascular disease HD today and resume T/T/S schedule next week (this will be her outpatient dialysis schedule) follow electrolytes, volume status, and clearance (2) Chest pain: Code(s): R07.9 - Chest pain, unspecified Status: Acute Assessment and Plan: along with acute shortness of breath and abdominal pain yesterday appeared somewhat pleuritic -- possible PE? EKG and troponins noted; on heparin gtt F/U on results of CT of chest PE protocol (3) Encephalopathy: Code(s): G93.40 - Encephalopathy, unspecified Status: Acute Assessment and Plan: slow improvement noted follow mentation (4) Pneumonia: Qualifiers: Pneumonia type: due to unspecified organism Laterality: bilateral Lung location: lower lobe of lung Qualified Code(s): J18.9 - Pneumonia, unspecified organism Code(s): J18.9 - Pneumonia, unspecified organism Status: Acute Assessment and Plan: completed treatment/antibiotics respiratory status significantly better continue supportive therapy (5) Anemia: Code(s): D64.9 - Anemia, unspecified Status: Acute Assessment and Plan: due to advanced CKD and acute illness getting Epogen with dialysis follow trend of H/H (6) Diabetes: Code(s): E11.9 - Type 2 diabetes mellitus without complications Status: Acute Assessment and Plan: follow accuchecks on SSI Will continue to follow. Subjective Date/time seen: 05/12/20 11:49 Tolerating dialysis at the time of my visit (seen on HD at ~ 11:35AM); in comparison to yesterday, she feels significantly better; empiricially on heparin gtt due to concerns for possible PE -- CT of chest this AM (results pending). Exam Narrative: Exam Narrative: General: WD/WN female in no acute distress Heart: normal S1 and S2; no rub Lungs: decreased at bases Abdomen: soft, nontender, nondistended, positive bowel sounds Extremities: no cyanosis or clubbing; trace - 1+ edema (chronic) Skin: warm and intact Objective Data Vital Signs Vital Signs: Vital Signs Temp Pulse Resp BP Pulse Ox 05/12/20 11:30 88 120/70 05/12/20 11:15 87 137/69 05/12/20 11:00 84 134/67 05/12/20 10:47 84 141/64 H 05/12/20 10:30 86 141/74 H 05/12/20 10:15 85 147/76 H 05/12/20 10:01 84 145/77 H 05/12/20 10:00 82 05/12/20 09:45 78 148/73 H 05/12/20 09:30 78 142/82 H 05/12/20 09:15 82 158/84 H 05/12/20 09:00 86 158/83 H 05/12/20 08:45 85 162/81 H 05/12/20 08:31 86 155/82 H 05/12/20 08:20 36.4 C L 90 26 H 160/85 H 05/12/20 08:00 86 05/12/20 07:32 36.2 C L 88 24 H 145/67 H 100 05/12/20 05:35 94 05/12/20 04:00 85 16 98 05/12/20 03:56 36.2 C L 89 16 141/50 H 98 05/12/20 02:00 80 05/12/20 00:00 80 18 100 05/11/20 23:59 36.1 C L 80 18 124/51 L 100 05/11/20 22:00 97 05/11/20 20:28 36.1 C L 92 18 132/46 L 94 05/11/20 20:00 93 18 94 05/11/20 18:28 82 05/11/20 16:00 93 05/11/20 15:46 37.0 C 93 20 100/69 100 05/11/20 12:18 133 H 24 H 146/80 H 91 05/11/20 12:00 89 Intake/Output Intake/Output: Intake & Output 05/09/20 05/10/20 05/11/20 05/12/20 23:59 23:59 23:59 23:59 Intake Total 560 780 380 132 Output Total 1500 199 Balance -790 543 181 132 Meds/Results Medications: Acti
[2020-05-12] MEDS: DOCUSATE SODIUM 100 MG CAPSULE PO ×2 (12:35→20:01)
[2020-05-12] MEDS: MIDODRINE HCL 10 MG TABLET PO ×2 (12:35→17:29)
[2020-05-12] MEDS: FAMOTIDINE 20 MG TABLET PO ×2 (12:35→20:01)
[2020-05-12] MEDS: lisinopriL 5 MG TABLET PO ×2 (12:36→20:01)
[2020-05-12] MEDS: CALCIUM ACETATE 667 MG TABLET PO ×2 (12:36→17:30)
[2020-05-12] MEDS: ASPIRIN 325 MG TABLET PO (12:36)
[2020-05-12] MEDS: ATORVASTATIN 20 MG TABLET PO (12:36)
[2020-05-12] MEDS: TOLNAFTATE 1% POWDER 45 GM BTL 1 APPLIC TOPICAL ×2 (12:37→20:02)
[2020-05-12 12:41] LABS: Glucose Point of Care 118 (65-105)
--- NOTE | 2020-05-12 13:05 | PCPTNOTE ---
Attempted to see Pt for physical therapy treatment this date. Pt. declined to participate, reporting that she was too tired.
[2020-05-12] MEDS: ISOSORBIDE MONONITRATE 30 MG TAB.ER.24H PO (13:38)
--- NOTE | 2020-05-12 14:25 | PM.IMPN ---
Progress Note: A&P Assessment and Plan (1) Chest pain: Code(s): R07.9 - Chest pain, unspecified Status: Acute Assessment and Plan: Patient with acute onset CP during HD on 05/11. Consider cardiac ischemia. EKG performed showing no acute changes. EKG reviewed and doubt AFib. She received 2 NTG SL and became more comfortable. HR was elevated but improved with control of pain. CXR taken showing persistent right basilar airspace disease and pulmonary edema. She had dialysis for about 40 minutes and about 400mL removed. Patient stated there is a pleuritc component to the pain as well so consider PE. She has an allergy to contrast media so she was pretreated. Doppler of the LE negative for DVT. Heaprin drip started. COVID negative. WBC 16K but dropped today to 15K. She is not on abx. CTA obtained today showing moderate right pleural effusion. SHe had HD today. She had 2.5L removed. Will hold on thoracentesis. Hopefully her effusion will improve with aggressive dialysis. Heparin drip stopped. (2) Acute respiratory failure: Qualifiers: Respiratory failure complication: hypoxia Qualified Code(s): J96.01 - Acute respiratory failure with hypoxia Code(s): J96.00 - Acute respiratory failure, unspecified whether with hypoxia or hypercapnia Status: Acute Assessment and Plan: Patient was in respiratory distress in the field and attempted intubation but was unsuccessful. Successfully intubated and placed on mechanically ventilated here. Thought secondary to fluid overload and pneumonia. Stabilized and was able to be extubated on 05/03/20. Able to be weaned to 1L and has remained stable. (3) Pneumonia: Qualifiers: Laterality: bilateral Lung location: lower lobe of lung Pneumonia type: due to unspecified organism Qualified Code(s): J18.9 - Pneumonia, unspecified organism Code(s): J18.9 - Pneumonia, unspecified organism Status: Acute Assessment and Plan: Atelectasis versus pneumonia noted on chest CT. Started on azithromycin and rocephin but switched to doxycycline and rocephin due to amiodarone drip. Finished 9 day course 05/04/20. Sputum and blood cultures negative. Pt had Right thoracentesis for pleural effusion on 05/01/20 with no evidence of infection. CXR yesterday showing improving pulmonary edema and stable RLL airspace disease. Doubt recurrent PNA. She received HD today. (4) Urinary tract infection: Qualifiers: Hematuria presence: with hematuria Urinary tract infection type: acute cystitis Qualified Code(s): N30.01 - Acute cystitis with hematuria Code(s): N39.0 - Urinary tract infection, site not specified Status: Acute Assessment and Plan: Urine culture is growing pansensitive EColi. Treated with Rocephin and finished on 05/04/20. (5) Metabolic acidosis: Code(s): E87.2 - Acidosis Status: Acute Assessment and Plan: Resolved. Thought secondary to renal failure and/or infection. (6) Acute kidney injury superimposed on chronic kidney disease: Code(s): N17.9 - Acute kidney failure, unspecified; N18.9 - Chronic kidney disease, unspecified Status: Acute Assessment and Plan: Patient has CKD V felt to be at end stage. Plan for watermelon inspector HD. Appreciate nephrology input. (7) Type 2 diabetes mellitus: Qualifiers: Chronic kidney disease stage: on chronic dialysis Diabetes mellitus complication detail: with chronic kidney disease Diabetes mellitus complication status: with kidney complications Diabetes mellitus watermelon inspector insulin use: with watermelon inspector use Qualified Code(s): E11.22 - Type 2 diabetes mellitus with diabetic chronic kidney disease; N18.6 - End stage renal disease; Z79.4 - [facility] (current) use of insulin; Z99.2 - Dependence on renal dialysis Code(s): E11.9 - Type 2 diabetes mellitus without complications Status: Acute Ass
[2020-05-12 17:03] LABS: Glucose Point of Care 208 (65-105)
[2020-05-12] MEDS: INSULIN ASPART (*BKC) 100 UNITS/ML SUB-Q ×2 (17:30→20:03)
[2020-05-12] MEDS: HEPARIN SODIUM 5,000 UNITS/ML VIAL 5000 UNITS SUB-Q (20:01)
[2020-05-12] MEDS: MELATONIN 3 MG TABLET PO (20:02)
[2020-05-12 20:03] LABS: Glucose Point of Care 272 (65-105)
[2020-05-13] VITALS (15 sets, daily range): BP systolic 127–140; BP diastolic 52–72; PULSE 75–97; RESP 12–24; TEMP 35.8–36.9; O2SAT 94–100
[2020-05-13] MEDS: HEPARIN SODIUM 5,000 UNITS/ML VIAL 5000 UNITS SUB-Q ×3 (05:28→22:00)
--- NOTE | 2020-05-13 08:13 | PM.PNNEP ---
Progress Note: A&P Assessment and Plan (1) End stage renal disease: Code(s): N18.6 - End stage renal disease Status: Chronic Assessment and Plan: due to acute illness/infection/hypotension on top of her known advanced kidney disease at baseline (CKD stage V) - given her known CKD, AV access was placed several months ago for her eventual need for renal replacement therapy Still no sign of recovery. Little urine output. Creatinine rises between treatments. It is unlikely she is going to recover. ESRD Patient had dialysis yesterday. (2) Chest pain: Code(s): R07.9 - Chest pain, unspecified Status: Acute Assessment and Plan: along with acute shortness of breath and abdominal pain Wednesday CT a negative for PE. Venous Dopplers negative. Chest x-ray shows some fluid but improved. EKG and troponins noted; on heparin gtt (3) Encephalopathy: Code(s): G93.40 - Encephalopathy, unspecified Status: Acute Assessment and Plan: slow improvement noted follow mentation (4) Pneumonia: Qualifiers: Pneumonia type: due to unspecified organism Laterality: bilateral Lung location: lower lobe of lung Qualified Code(s): J18.9 - Pneumonia, unspecified organism Code(s): J18.9 - Pneumonia, unspecified organism Status: Acute Assessment and Plan: completed treatment/antibiotics respiratory status significantly better (5) Anemia: Code(s): D64.9 - Anemia, unspecified Status: Acute Assessment and Plan: due to advanced CKD and acute illness getting Epogen with dialysis Check a CBC tomorrow. (6) Diabetes: Code(s): E11.9 - Type 2 diabetes mellitus without complications Status: Acute Assessment and Plan: follow accuchecks on SSI Subjective Date/time seen: 05/13/20 08:13 Interval history: Patient is awake. She is less short of breath and she was the other day. No chest pain. Review of Systems Cardiovascular: Cardiovascular: Reports no additional cardiovascular complaints Respiratory: Respiratory: Reports no additional respiratory complaints Gastrointestinal: Gastrointestinal: Reports no additional gastrointestinal complaints Genitourinary: Genitourinary: Reports no additional female genitourinary complaints Exam Narrative: Exam Narrative: General: WD/WN female in no acute distress Heart: normal S1 and S2; no rub Lungs: decreased at bases Abdomen: soft, nontender, nondistended, positive bowel sounds Extremities: no cyanosis or clubbing; trace - 1+ edema (chronic) Skin: No rash Objective Data Vital Signs Vital Signs: Vital Signs - 24 hr 05/12/20 08:20 05/12/20 08:31 05/12/20 08:45 Temperature 36.4 C L Pulse Rate 90 86 85 Respiratory Rate 26 H Blood Pressure 160/85 H 155/82 H 162/81 H Pulse Oximetry 05/12/20 09:00 05/12/20 09:15 05/12/20 09:30 Temperature Pulse Rate 86 82 78 Respiratory Rate Blood Pressure 158/83 H 158/84 H 142/82 H Pulse Oximetry 05/12/20 09:45 05/12/20 10:00 05/12/20 10:01 Temperature Pulse Rate 78 82 84 Respiratory Rate Blood Pressure 148/73 H 145/77 H Pulse Oximetry 05/12/20 10:15 05/12/20 10:30 05/12/20 10:47 Temperature Pulse Rate 85 86 84 Respiratory Rate Blood Pressure 147/76 H 141/74 H 141/64 H Pulse Oximetry 05/12/20 11:00 05/12/20 11:15 05/12/20 11:30 Temperature Pulse Rate 84 87 88 Respiratory Rate Blood Pressure 134/67 137/69 120/70 Pulse Oximetry 05/12/20 11:46 05/12/20 12:00 05/12/20 12:10 Temperature 36.9 C 36.6 C Pulse Rate 85 91 90 Respiratory Rate 22 H 18 Blood Pressure 127/67 129/75 136/74 Pulse Oximetry 100 05/12/20 14:06 05/12/20 15:45 05/12/20 16:00 Temperature 37.1 C Pulse Rate 95 91 85 Respiratory Rate 22 H Blood Pressure 122/66 Pulse Oximetry 100 05/12/20 18:09 05/12/20 19:31 05/12/20 19:34 [place]
--- NOTE | 2020-05-13 08:13 | P.PNNP_ITS ---
Progress Note: A&P Assessment and Plan (1) End stage renal disease: Code(s): N18.6 - End stage renal disease Status: Chronic Assessment and Plan: * due to acute illness/infection/hypotension on top of her known advanced kidney disease at baseline (CKD stage V) - given her known CKD, AV access was placed several months ago for her eventual need for renal replacement therapy * Still no sign of recovery. * Little urine output. Creatinine rises between treatments. * It is unlikely she is going to recover. * ESRD * Patient had dialysis yesterday. (2) Chest pain: Code(s): R07.9 - Chest pain, unspecified Status: Acute Assessment and Plan: * along with acute shortness of breath and abdominal pain Wednesday * CT a negative for PE. * Venous Dopplers negative. * Chest x-ray shows some fluid but improved. * EKG and troponins noted; on heparin gtt * (3) Encephalopathy: Code(s): G93.40 - Encephalopathy, unspecified Status: Acute Assessment and Plan: * slow improvement noted * follow mentation (4) Pneumonia: Qualifiers: Pneumonia type: due to unspecified organism Laterality: bilateral Lung location: lower lobe of lung Qualified Code(s): J18.9 - Pneumonia, unspecified organism Code(s): J18.9 - Pneumonia, unspecified organism Status: Acute Assessment and Plan: * completed treatment/antibiotics * respiratory status significantly better (5) Anemia: Code(s): D64.9 - Anemia, unspecified Status: Acute Assessment and Plan: * due to advanced CKD and acute illness * getting Epogen with dialysis * Check a CBC tomorrow. (6) Diabetes: Code(s): E11.9 - Type 2 diabetes mellitus without complications Status: Acute Assessment and Plan: * follow accuchecks * on SSI Subjective Date/time seen: 05/13/20 08:13 Interval history: Patient is awake. She is less short of breath and she was the other day. No chest pain. Review of Systems Cardiovascular: Cardiovascular: Reports no additional cardiovascular complaints Respiratory: Respiratory: Reports no additional respiratory complaints Gastrointestinal: Gastrointestinal: Reports no additional gastrointestinal complaints Genitourinary: Genitourinary: Reports no additional female genitourinary complaints Exam Narrative: Exam Narrative: General: WD/WN female in no acute distress Heart: normal S1 and S2; no rub Lungs: decreased at bases Abdomen: soft, nontender, nondistended, positive bowel sounds Extremities: no cyanosis or clubbing; trace - 1+ edema (chronic) Skin: No rash Objective Data Vital Signs Vital Signs: Vital Signs - 24 hr 05/12/20 08:20 05/12/20 08:31 05/12/20 08:45 Temperature 36.4 C L Pulse Rate 90 86 85 Respiratory Rate 26 H Blood Pressure 160/85 H 155/82 H 162/81 H Pulse Oximetry 05/12/20 09:00 05/12/20 09:15 05/12/20 09:30 Temperature Pulse Rate 86 82 78 Respiratory Rate Blood Pressure 158/83 H 158/84 H 142/82 H Pulse Oximetry 05/12/20 09:45 05/12/20 10:00 05/12/20 10:01 Temperature Pulse Rate 78 82 84 Respiratory Rate Blood Pressure 148/73 H 145/77 H
[2020-05-13 08:29] LABS: Glucose Point of Care 190 (65-105)
[2020-05-13] MEDS: ASPIRIN 325 MG TABLET PO (09:06)
[2020-05-13] MEDS: MIDODRINE HCL 10 MG TABLET PO ×3 (09:06→16:48)
[2020-05-13] MEDS: CALCIUM ACETATE 667 MG TABLET PO ×3 (09:06→16:48)
[2020-05-13] MEDS: lisinopriL 5 MG TABLET PO ×2 (09:06→20:20)
[2020-05-13] MEDS: ISOSORBIDE MONONITRATE 30 MG TAB.ER.24H PO (09:06)
[2020-05-13] MEDS: FAMOTIDINE 20 MG TABLET PO ×2 (09:06→20:20)
[2020-05-13] MEDS: ATORVASTATIN 20 MG TABLET PO (09:06)
[2020-05-13] MEDS: TOLNAFTATE 1% POWDER 45 GM BTL 1 APPLIC TOPICAL ×2 (09:06→20:20)
[2020-05-13] MEDS: DOCUSATE SODIUM 100 MG CAPSULE PO ×2 (09:06→20:20)
[2020-05-13] MEDS: INSULIN GLARGINE (*BKC) 100 UNITS/ML SUB-Q (09:11)
--- NOTE | 2020-05-13 10:43 | PM.PNCARD ---
Progress Note: A&P Assessment and Plan (1) Elevated troponin: Code(s): R79.89 - Other specified abnormal findings of blood chemistry Status: Acute Assessment and Plan: -Multifactorial etiology, peaked at 1.3. Most likely demand ischemia with known underlying CAD, acute on chronic renal failure, hypotension/septic shock on pressor support. COVID-19 negative. Doubt ACS. Conservative therapy at this time, -Cardiomyopathy, worse than a few months ago. -Dialysis for volume removal -blood pressure does seem a bit more stable. Continue lisinopril No beta-mamie at this point. -Echo 04/30/2020:Mild LV enlargement, severe LVH, severe LV systolic dysfunction, ejection fraction 25-30%; abnormal diastolic function. Abnormal G LS research and evaluation manager at-5.6. Mild RV enlargement. Systolic and diastolic ventricular septal flattening consistent with elevated RV pressure and volume. Mild left atrial enlargement. moderate mitral regurgitation. Moderate prosthetic valve aortic stenosis, v max 2.8 m/sec, peak gradient 32, mean gradient 16 mmHg, DVI 0.39, JUAN M 1 cm2. Moderate to severe tricuspid regurgitation, moderate pulmonary hypertension, RVSP 53 mmHg. When compared to echocardiogram from 01/12/2020 LV systolic function is much worse. (2) Coronary artery disease involving [place] coronary artery of menominee heart: Qualifiers: Associated angina: without angina Qualified Code(s): I25.10 - Atherosclerotic heart disease of [place] coronary artery without angina pectoris Code(s): I25.10 - Atherosclerotic heart disease of [place] coronary artery without angina pectoris Status: Acute Assessment and Plan: As above, continue medical therapy aspirin, statin. Did not tolerate beta-mamie therapy 04/27/2020. Continue isosorbide mononitrate 30 mg p.o. daily Consider stress testing before discharge now that she is dialysis dependent (3) History of aortic valve replacement with bioprosthetic valve: Code(s): Z95.3 - Presence of xenogenic heart valve Status: Acute Assessment and Plan: Mild to moderate prosthetic stenosis on echo this admission. (4) Acute respiratory failure: Qualifiers: Respiratory failure complication: hypoxia Qualified Code(s): J96.01 - Acute respiratory failure with hypoxia Code(s): J96.00 - Acute respiratory failure, unspecified whether with hypoxia or hypercapnia Status: Acute Assessment and Plan: Pneumonia management per Critical Care Service and Dr. Saini. Mental status improving. COVID-19 negative. (5) Septic shock: Code(s): A41.9 - Sepsis, unspecified organism; R65.21 - Severe sepsis with septic shock Status: Acute Assessment and Plan: Pressors have been weaned off. Continue antibiotics and supportive care. (6) Acute kidney injury superimposed on chronic kidney disease: Code(s): N17.9 - Acute kidney failure, unspecified; N18.9 - Chronic kidney disease, unspecified Status: Acute Assessment and Plan: Volume overload 2nd CKD and possibly some CHF. Hemodialysis initiated and needs more volume removal. Her edema is worsening. Will try to give her a dose IV furosemide 40 mg to see if there is any response. Appreciate Nephrology involvement. (7) Pneumonia: Qualifiers: Pneumonia type: due to unspecified organism Laterality: bilateral Lung location: lower lobe of lung Qualified Code(s): J18.9 - Pneumonia, unspecified organism Code(s): J18.9 - Pneumonia, unspecified organism Status: Acute Assessment and Plan: Per hospitalist service (8) LBBB (left bundle branch block): Code(s): I44.7 - Left bundle-branch block, unspecified Status: Acute Assessment and Plan: Chronic.
[2020-05-13 11:52] LABS: Glucose Point of Care 248 (65-105)
[2020-05-13] MEDS: INSULIN ASPART (*BKC) 100 UNITS/ML SUB-Q ×2 (12:15→17:52)
--- NOTE | 2020-05-13 14:38 | PM.IMPN ---
Progress Note: A&P Assessment and Plan (1) Chest pain: Code(s): R07.9 - Chest pain, unspecified Status: Acute Assessment and Plan: Patient with acute onset CP during HD on 05/11. Consider cardiac ischemia. EKG performed showing no acute changes. EKG reviewed and doubt AFib. She received 2 NTG SL and became more comfortable. HR was elevated but improved with control of pain. CXR taken showing persistent right basilar airspace disease and pulmonary edema. She had dialysis for about 40 minutes and about 400mL removed. Patient stated there is a pleuritc component to the pain as well so consider PE. She has an allergy to contrast media so she was pretreated. Doppler of the LE negative for DVT. Heaprin drip started. COVID negative. WBC 26K but dropped to 15K. She is not on abx. CTA obtained showing moderate right pleural effusion. She had HD yesterday with 2.5L removed. Will hold on thoracentesis. Hopefully her effusion will improve with aggressive dialysis. Heparin drip stopped. Okay to discharge when arrangements made. (2) Acute respiratory failure: Qualifiers: Respiratory failure complication: hypoxia Qualified Code(s): J96.01 - Acute respiratory failure with hypoxia Code(s): J96.00 - Acute respiratory failure, unspecified whether with hypoxia or hypercapnia Status: Acute Assessment and Plan: Patient was in respiratory distress in the field and attempted intubation but was unsuccessful. Successfully intubated and placed on mechanically ventilated here. Thought secondary to fluid overload and pneumonia. Stabilized and was able to be extubated on 05/03/20. Able to be weaned to 1L. Recurrent SOB and CP in HD on 05/11/20. No recurrence. (3) Pneumonia: Qualifiers: Laterality: bilateral Lung location: lower lobe of lung Pneumonia type: due to unspecified organism Qualified Code(s): J18.9 - Pneumonia, unspecified organism Code(s): J18.9 - Pneumonia, unspecified organism Status: Acute Assessment and Plan: Atelectasis versus pneumonia noted on chest CT. Started on azithromycin and rocephin but switched to doxycycline and rocephin due to amiodarone drip. Finished 9 day course 05/04/20. Sputum and blood cultures negative. Pt had Right thoracentesis for pleural effusion on 05/01/20 with no evidence of infection. CTA showing bilateral pleural effusions R>L. She received HD yesterday. Continue HD to control fluid balance (4) Urinary tract infection: Qualifiers: Hematuria presence: with hematuria Urinary tract infection type: acute cystitis Qualified Code(s): N30.01 - Acute cystitis with hematuria Code(s): N39.0 - Urinary tract infection, site not specified Status: Acute Assessment and Plan: Urine culture is growing pansensitive EColi. Treated with Rocephin and finished on 05/04/20. (5) Metabolic acidosis: Code(s): E87.2 - Acidosis Status: Acute Assessment and Plan: Resolved. Thought secondary to renal failure and/or infection. (6) Acute kidney injury superimposed on chronic kidney disease: Code(s): N17.9 - Acute kidney failure, unspecified; N18.9 - Chronic kidney disease, unspecified Status: Acute Assessment and Plan: Patient has CKD V felt to be at end stage. Plan for oil heaterman HD. Appreciate nephrology input. (7) Type 2 diabetes mellitus: Qualifiers: Chronic kidney disease stage: on chronic dialysis Diabetes mellitus complication detail: with chronic kidney disease Diabetes mellitus complication status: with kidney complications Diabetes mellitus [facility] insulin use: with oil heaterman use Qualified Code(s): E11.22 - Type 2 diabetes mellitus with diabetic chronic kidney disease; N18.6 - End stage renal disease; Z79.4 - [employer] heaterman (current) use of insulin; Z99.2 - Dependence on renal dialysis Code(s): E11.9 - Type 2 diabetes mellitus without
[2020-05-13] MEDS: NEOMYCIN/POLYMYXIN/BACITRACIN OINTMENT PACKET 1 PACKET (16:08)
[2020-05-13 16:41] LABS: Glucose Point of Care 244 (65-105)
[2020-05-13 17:01] LABS: Glucose Point of Care 251 (65-105)
--- NOTE | 2020-05-13 17:06 | PC.NURSE ---
Pt transferred to [facility]. Belongings verified and taken w/ patient. Oxygen on with travel. No issues noted. Report given to BRITTANY Mosley @ [phone]
[2020-05-13] MEDS: MELATONIN 3 MG TABLET PO (20:23)
--- NOTE | 2020-05-13 21:05 | PC.NURSE ---
Patient c/o abdominal pain and feeling like she needs to have a bowel movement. Medium emesis of undigested food and green liquid. No stool noted upon rectal exam. Sussy ASSOCIATE PROFESSOR OF ANTHROPOLOGY notifiedl Orders received and entered.
[2020-05-13 21:38] LABS: Glucose Point of Care 178 (65-105)
[2020-05-14] VITALS (17 sets, daily range): BP systolic 119–150; BP diastolic 61–82; PULSE 82–98; RESP 16–22; TEMP 36.6–37; O2SAT 93–97
[2020-05-14] MEDS: DOCUSATE SODIUM 400 MG/400 ML ENEMA RECTAL (01:21)
[2020-05-14] MEDS: polyethylene glycoL 3350 17 GM POWD.PACK PO (03:31)
[2020-05-14] MEDS: ACETAMINOPHEN 325 MG TABLET 650 MG PO (03:31)
--- NOTE | 2020-05-14 07:29 | P.PNNP_ITS ---
Progress Note: A&P Assessment and Plan (1) End stage renal disease: Code(s): N18.6 - End stage renal disease Status: Chronic Assessment and Plan: * due to acute illness/infection/hypotension on top of her known advanced kidney disease at baseline (CKD stage V) - given her known CKD, AV access was placed several months ago for her eventual need for renal replacement therapy * Still no sign of recovery. * Little urine output. Creatinine rises between treatments. * It is unlikely she is going to recover. * ESRD * Patient is due for dialysis today. Will remove more fluid. (2) Chest pain: Code(s): R07.9 - Chest pain, unspecified Status: Acute Assessment and Plan: * along with acute shortness of breath and abdominal pain Wednesday * CT a negative for PE. * Venous Dopplers negative. * Chest x-ray shows some fluid but improved. * EKG and troponins noted; on heparin gtt * Remove fluid on Wednesday and will remove more today. (3) Encephalopathy: Code(s): G93.40 - Encephalopathy, unspecified Status: Acute Assessment and Plan: * slow improvement noted * follow mentation (4) Pneumonia: Qualifiers: Pneumonia type: due to unspecified organism Laterality: bilateral Lung location: lower lobe of lung Qualified Code(s): J18.9 - Pneumonia, unspecified organism Code(s): J18.9 - Pneumonia, unspecified organism Status: Acute Assessment and Plan: * completed treatment/antibiotics * respiratory status significantly better (5) Anemia: Code(s): D64.9 - Anemia, unspecified Status: Acute Assessment and Plan: * due to advanced CKD and acute illness * getting Epogen with dialysis * Check a CBC today (6) Diabetes: Code(s): E11.9 - Type 2 diabetes mellitus without complications Status: Acute Assessment and Plan: * follow accuchecks * on SSI Subjective Date/time seen: 05/14/20 07:29 Interval history: Patient is awake. She is less short of breath and she was the other day. She is due for dialysis today. Review of Systems Cardiovascular: Cardiovascular: Reports no additional cardiovascular complaints Respiratory: Respiratory: Reports no additional respiratory complaints Gastrointestinal: Gastrointestinal: Reports no additional gastrointestinal complaints Genitourinary: Genitourinary: Reports no additional female genitourinary complaints Exam Narrative: Exam Narrative: General: WD/WN female in no acute distress Heart: normal S1 and S2; no rub Lungs: decreased at bases Abdomen: soft, nontender, nondistended, positive bowel sounds Extremities: no cyanosis or clubbing; trace - 1+ edema (chronic) Skin: No rash or subcu nodules Objective Data Vital Signs Vital Signs: Vital Signs - 24 hr 05/13/20 07:53 05/13/20 08:00 05/13/20 08:16 Temperature 35.8 C L Pulse Rate 85 91 84 Respiratory Rate 16 Blood Pressure 137/52 L Pulse Oximetry 99 98 05/13/20 09:02 05/13/20 10:00 05/13/20 11:53 Temperature 35.8 C L Pulse Rate 92 95 91 Respiratory Rate 12 Blood Pressure 127/65 Pulse Oximetry 95 100 05/13/20 12:00 05/13/20 14:00 05/13/20 16:43 Temperature 35.8 C L Pulse
--- NOTE | 2020-05-14 07:29 | PM.PNNEP ---
Progress Note: A&P Assessment and Plan (1) End stage renal disease: Code(s): N18.6 - End stage renal disease Status: Chronic Assessment and Plan: due to acute illness/infection/hypotension on top of her known advanced kidney disease at baseline (CKD stage V) - given her known CKD, AV access was placed several months ago for her eventual need for renal replacement therapy Still no sign of recovery. Little urine output. Creatinine rises between treatments. It is unlikely she is going to recover. ESRD Patient is due for dialysis today. Will remove more fluid. (2) Chest pain: Code(s): R07.9 - Chest pain, unspecified Status: Acute Assessment and Plan: along with acute shortness of breath and abdominal pain Wednesday CT a negative for PE. Venous Dopplers negative. Chest x-ray shows some fluid but improved. EKG and troponins noted; on heparin gtt Remove fluid on Wednesday and will remove more today. (3) Encephalopathy: Code(s): G93.40 - Encephalopathy, unspecified Status: Acute Assessment and Plan: slow improvement noted follow mentation (4) Pneumonia: Qualifiers: Pneumonia type: due to unspecified organism Laterality: bilateral Lung location: lower lobe of lung Qualified Code(s): J18.9 - Pneumonia, unspecified organism Code(s): J18.9 - Pneumonia, unspecified organism Status: Acute Assessment and Plan: completed treatment/antibiotics respiratory status significantly better (5) Anemia: Code(s): D64.9 - Anemia, unspecified Status: Acute Assessment and Plan: due to advanced CKD and acute illness getting Epogen with dialysis Check a CBC today (6) Diabetes: Code(s): E11.9 - Type 2 diabetes mellitus without complications Status: Acute Assessment and Plan: follow accuchecks on SSI Subjective Date/time seen: 05/14/20 07:29 Interval history: Patient is awake. She is less short of breath and she was the other day. She is due for dialysis today. Review of Systems Cardiovascular: Cardiovascular: Reports no additional cardiovascular complaints Respiratory: Respiratory: Reports no additional respiratory complaints Gastrointestinal: Gastrointestinal: Reports no additional gastrointestinal complaints Genitourinary: Genitourinary: Reports no additional female genitourinary complaints Exam Narrative: Exam Narrative: General: WD/WN female in no acute distress Heart: normal S1 and S2; no rub Lungs: decreased at bases Abdomen: soft, nontender, nondistended, positive bowel sounds Extremities: no cyanosis or clubbing; trace - 1+ edema (chronic) Skin: No rash or subcu nodules Objective Data Vital Signs Vital Signs: Vital Signs - 24 hr 05/13/20 07:53 05/13/20 08:00 05/13/20 08:16 Temperature 35.8 C L Pulse Rate 85 91 84 Respiratory Rate 16 Blood Pressure 137/52 L Pulse Oximetry 99 98 05/13/20 09:02 05/13/20 10:00 05/13/20 11:53 Temperature 35.8 C L Pulse Rate 92 95 91 Respiratory Rate 12 Blood Pressure 127/65 Pulse Oximetry 95 100 05/13/20 12:00 05/13/20 14:00 05/13/20 16:43 Temperature 35.8 C L Pulse Rate 91 84 88 Respiratory Rate 12 Blood Pressure 140/54 L Pulse Oximetry 98 05/13/20 22:00 Temperature 36.9 C Pulse Rate 91 Respiratory Rate 24 H Blood Pressure 138/72 Pulse Oximetry 94 Intake/Output Intake/Output: Intake & Output 05/11/20 05/12/20 05/13/20 05/14/20 23:59 23:59 23:59 23:59 Intake Total 380 147 600 Output Total 199 2500 1 Balance 181 -0003 599 Meds/Results Medications: Active Medications Generic Name Dose Route Start Last Admin Trade Name Freq PRN Reason Stop Dose Admin Acetaminophen 650 mg 05/12/20 05:51 05/14/20 03:31 Tylenol Tablet PO 650 mg Q4H PRN Administration Pain or Fever Albuterol 2.5 mg 04/26/20 14:11 05/08/20 14:04 Albuterol S
[2020-05-14 08:57] LABS: Glucose Point of Care 149 (65-105)
[2020-05-14 10:24] LABS: Hematocrit 27.2 % (37.0-47.0); Hemoglobin 7.8 g/dL (12.0-15.0); Mean Corpuscular HGB Conc 28.7 g/dl (32-36); Mean Corpuscular Hemoglobin 28.7 pg (26-34); Mean Platelet Volume 10.6 fl (7.4-10.4); Platelet Count Result 214 k/mm3 (150-375); Red Blood Count 2.72 M/mm3 (4.2-5.4); Red Cell Distribution Width 18.1 % (11.5-14.5); White Blood Count 12.9 K/mm3 (4.5-10.0)
[2020-05-14 10:46] LABS: Albumin Level 3.5 g/dL (3.5-5.1); Blood Urea Nitrogen 46 mg/dL (7-17); Calcium 8.4 mg/dL (8.4-10.2); Carbon Dioxide 31 mmol/L (22-30); Chloride 102 mmol/L (98-107); Estimated CRCL calculation 12 ml/min; Estimated Glomerular Filt Rate 10; Glucose 220 mg/dL (65-105); Phosphorus 4.3 mg/dL (2.5-4.5); Potassium 4.5 mmol/L (3.4-5.0); Sodium 139 mmol/L (137-145)
[2020-05-14 11:38] LABS: Glucose Point of Care 198 (65-105)
[2020-05-14] MEDS: lisinopriL 5 MG TABLET PO (12:19)
[2020-05-14] MEDS: MIDODRINE HCL 10 MG TABLET PO ×3 (12:19→19:01)
[2020-05-14] MEDS: ISOSORBIDE MONONITRATE 30 MG TAB.ER.24H PO (12:19)
[2020-05-14] MEDS: TOLNAFTATE 1% POWDER 45 GM BTL 1 APPLIC TOPICAL (12:19)
--- NOTE | 2020-05-14 14:34 | PM.DS ---
DS: Admitting Diagnosis Admitting Diagnosis Admitting Diagnosis: Sepsis, unspecified organism DS: Discharge Diagnosis Discharge Diagnosis (1) Chest pain: Code(s): R07.9 - Chest pain, unspecified Status: Acute Assessment and Plan: Patient with acute onset CP during HD. Consider cardiac ischemia. EKG performed showing no acute changes. EKG reviewed and doubt AFib. CP was 10/10 adn BP 146/56 so NTG SL given. After 5minutes, CP had not changed significantly so another NTG SL (BP 111/59) given and pain subsided to 8/10 and she seemed more comfortable. HR was elevated but improved with control of pain. CXR taken showing persistent right basilar airspace disease and pulmonary edema. She had dialysis for about 40 minutes and about 400mL removed. Patietn does state there is a pleuritc component to the pain as well so consider PE. She does have an allergy to contrast media. Labs including Trop ordered. Doubt infectious process; the lung infiltrate has been noted earlier and she has completed a round of abx. Check dopplers and start Heparin. Morphine if she is still having pain. If dopplers negative, then will pre-treat for contrast allergy. On re-assessment, pain down to 4/10. Patient refuses Morphine. She has no hx of panic attacks. called and updated. Cardiology informed. Trop 0.08 (was 1.3 on 04/26). WBC 26.7K (13.8 two days ago) with stable Hgb at 8.4. COVID negative yesterday. Will check Blood and urine cultures. Patient still with central line. Start heparin gtt. Hold on abx for now. 40 minutes spent on critical care time (2) Acute respiratory failure: Qualifiers: Respiratory failure complication: hypoxia Qualified Code(s): J96.01 - Acute respiratory failure with hypoxia Code(s): J96.00 - Acute respiratory failure, unspecified whether with hypoxia or hypercapnia Status: Acute Assessment and Plan: Patient was in respiratory distress in the field and attempted intubation but was unsuccessful. Successfully intubated and placed on mechanically ventilated here. Thought secondary to fluid overload and pneumonia. Stabilized and was able to be extubated on 05/03/20. Able to be weaned to 1L and has remained stable. (3) Pneumonia: Qualifiers: Pneumonia type: due to unspecified organism Laterality: bilateral Lung location: lower lobe of lung Qualified Code(s): J18.9 - Pneumonia, unspecified organism Code(s): J18.9 - Pneumonia, unspecified organism Status: Acute Assessment and Plan: Atelectasis versus pneumonia noted on chest CT. Started on azithromycin and rocephin but switched to doxycycline and rocephin due to amiodarone drip. Finished 9 day course 05/04/20. Sputum and blood cultures negative. Pt had Right thoracentesis for pleural effusion on 05/01/20 with no evidence of infection. CXR today showing improving pulmonary edema and stable RLL airspace disease. Doubt recurrent PNA. (4) Urinary tract infection: Qualifiers: Urinary tract infection type: acute cystitis Hematuria presence: with hematuria Qualified Code(s): N30.01 - Acute cystitis with hematuria Code(s): N39.0 - Urinary tract infection, site not specified Status: Acute Assessment and Plan: Urine culture is growing pansensitive EColi. Treated with Rocephin and finished on 05/04/20. (5) Metabolic acidosis: Code(s): E87.2 - Acidosis Status: Acute Assessment and Plan: Resolved. Thought secondary to renal failure and/or infection. (6) Acute kidney injury superimposed on chronic kidney disease: Code(s): N17.9 - Acute kidney failure, unspecified; N18.9 - Chronic kidney disease, unspecified Status: Acute Assessment and Plan: Patient has CKD V felt to be at end stage. Plan for long-term HD. Appreciate nephrology input. (7) Type 2 diabetes mellitus: Qualifiers: Diabetes
--- NOTE | 2020-05-14 14:51 | PCOTNOTE ---
Attempted to see patient this P.M. Upon entry, patient states of having 8/10 abdominal pain, describing it as cramping and nausea. Patient stated of needing to use the bedpan. Practitioner assisted patient on bedpan and asked if she would like to participate in other tasks for skilled OT session. Patient declined stating of stomach being too upset. Patient refused OT session this date.
[2020-05-14] MEDS: SODIUM CHLORIDE 0.9% IV 1,000 ML 333 ML (17:06)
[2020-05-14] MEDS: CALCIUM ACETATE 667 MG TABLET PO ×3 (18:47→20:12)
[2020-05-14] MEDS: DOCUSATE SODIUM 100 MG CAPSULE PO (18:47)
[2020-05-14] MEDS: ASPIRIN 325 MG TABLET PO (18:47)
[2020-05-14] MEDS: ATORVASTATIN 20 MG TABLET PO (18:47)
[2020-05-14] MEDS: FAMOTIDINE 20 MG TABLET PO (18:48)
[2020-05-14] MEDS: HEPARIN SODIUM 5,000 UNITS/ML VIAL 5000 UNITS SUB-Q (18:49)
[2020-05-14] MEDS: INSULIN ASPART (*BKC) 100 UNITS/ML SUB-Q (18:59)
[2020-05-14] MEDS: INSULIN GLARGINE (*BKC) 100 UNITS/ML SUB-Q (19:00)
[2020-05-14 19:09] LABS: Glucose Point of Care 208 (65-105)
[2020-05-14] MEDS: EPOETIN ALFA 10,000 UNITS/ML VIAL 10000 UNITS IV PUSH (19:18)
--- NOTE | 2020-05-14 20:35 | PC.NURSE ---
Patient back from dialysis per bed.
--- NOTE | 2020-05-14 21:40 | PC.NURSE ---
Ambulance here to get patient to transfer to [place], per housekeeper Leslie it is okay to send patient to [place] with box lunch from the unit kitchen.
== END 2020-05-14 20:43 | DRG 870 ==
LOC: ANHED 14:23 → ANHICU 15:40 → ANH2MED 05-10 07:51 → ANHIMU 05-13 16:10 → ANH2MED 05-15 09:22 → ANH3MEDSUR 05-15 09:22 → ANHICU 05-15 09:22 → ANHIMU 05-15 09:22
PROVIDERS: Internal Medicine; Internal Medicine Cardiovascular Disease; Internal Medicine Critical Care Medicine; Internal Medicine Infectious Disease; Internal Medicine Nephrology; Physician Assistant; Admitting Provider Internal Medicine; Emergency Provider Emergency Medicine; PCP Internal Medicine; Visit Provider Family Medicine
DX: A41.9 Sepsis, unspecified organism (principal); J18.9 Pneumonia, unspecified organism; J96.01 Acute respiratory failure with hypoxia; G93.41 Metabolic encephalopathy; E11.10 Type 2 diabetes mellitus with ketoacidosis without coma; R65.21 Severe sepsis with septic shock; K29.01 Acute gastritis with bleeding; N17.0 Acute kidney failure with tubular necrosis; N39.0 Urinary tract infection, site not specified; I13.2 Hypertensive heart and chronic kidney disease with heart failure and with stage 5 chronic kidney disease, or end stage renal disease; N18.5 Chronic kidney disease, stage 5; I50.42 Chronic combined systolic (congestive) and diastolic (congestive) heart failure; E87.2 Acidosis; J44.0 Chronic obstructive pulmonary disease with (acute) lower respiratory infection; I47.1 Supraventricular tachycardia; I24.8 Other forms of acute ischemic heart disease; J90 Pleural effusion, not elsewhere classified; Z20.828 Contact with and (suspected) exposure to other viral communicable diseases; E11.22 Type 2 diabetes mellitus with diabetic chronic kidney disease; B96.20 Unspecified Escherichia coli [E. coli] as the cause of diseases classified elsewhere; M19.90 Unspecified osteoarthritis, unspecified site; I25.5 Ischemic cardiomyopathy; E78.5 Hyperlipidemia, unspecified; I25.10 Atherosclerotic heart disease of native coronary artery without angina pectoris; D64.9 Anemia, unspecified; I48.91 Unspecified atrial fibrillation; D72.829 Elevated white blood cell count, unspecified; T38.0X5A Adverse effect of glucocorticoids and synthetic analogues, initial encounter; D63.1 Anemia in chronic kidney disease; Z99.2 Dependence on renal dialysis; Z95.1 Presence of aortocoronary bypass graft; Z86.73 Personal history of transient ischemic attack (TIA), and cerebral infarction without residual deficits; Z95.2 Presence of prosthetic heart valve; Z98.42 Cataract extraction status, left eye; Z98.41 Cataract extraction status, right eye
CPT/HCPCS: 31500; 32555; 36415; 36430; 36600; 70450; 71045; 71250; 71275; 74018; 76705; 76775; 80048; 80053; 80069; 81001; 82010; 82150; 82274; 82375; 82533; 82805; 82945; 83036; 83050; 83605; 83615; 83735; 83880; 83986; 84100; 84145; 84157; 84311; 84443; 84484; 85025; 85027; 85046; 85610; 85730; 86140; 86704; 86706; 86803; 86850; 86900; 86901; 86923; 87015; 87040; 87070; 87075; 87077; 87086; 87088; 87102; 87116; 87186; 87205; 87206; 87340; 87449; 87635; 87899; 88104; 88108; 88184; 88305; 89051; 92526; 92610; 92611; 93005; 93306; 93970; 93971; 94003; 94640; 96365; 96366; 96367; 96375; 96376; 97110; 97163; 97167; 97530; 97535; 99291; A9270; C1751; C9113; C9803; G0257; J0282; J0456; J0696; J1644; J1720; J1815; J1940; J2250; J2405; J3010; J3370; J3475; J7030; J7040; J7050; J7512; P9016; P9047; Q4081; Q9967; U0003

== ENCOUNTER 2020-05-16 08:00 | Inpatient (IN) | payer MEDICARE, MEDICAID, SELFPAY ==
[2020-05-16] VITALS (31 sets, daily range): BP systolic 93–128; BP diastolic 48–74; PULSE 80–120; RESP 15–38; TEMP 36.1–37; O2SAT 94–100; BMI 22.8
--- NOTE | ~2020-05-16 | XR_ITS ---
XR abdomen obstructive series DATE: 05/21/2020 15:31 INDICATION: Abdominal pain TECHNIQUE: Portable supine AP and upright AP views COMPARISON: 05/13/2020 KUB FINDINGS: There is radiopaque material and moderately prominent feces within the sigmoid colon and re ctum. There is diminished fecal material within the colon compared to 05/13/2020. No bowel obstruction is evident. No visceromegaly is detected. IMPRESSION: Diminished fecal content of the colon since 05/13/2020 Reviewed, dictated and finalized at [facility]. Reviewed, dictated and finalized at [facility].
--- NOTE | ~2020-05-16 | XR_ITS ---
XR chest 1V portable 05/19/2020 05:39 Indication: Acute respiratory failure Procedure: AP portable chest Comparison: Comparison to multiple prior studies sequentially, with oldest reviewed study dated 04/2020. Findings: Status post median sternotomy for CABG. There is a prosthetic heart valve. Cardiomegaly wit h interstitial edema. Bilateral pleural effusions, right greater than left. No pneumothorax. Impression: 1: Cardiomegaly with interstitial edema. No significant change. 2: Bilateral pleural effusions, right greater than left. Reviewed, dictated and finalized at [facility]. Impression: 1: Cardiomegaly with interstitial edema. No significant change. 2: Bilateral pleural effusions, right greater than left.
--- NOTE | ~2020-05-16 | XR_ITS ---
EXAMINATION: XR chest 1V portable INDICATION: Shortness of breath TECHNIQUE: Portable AP chest at 0842 hours COMPARISON: 05/11/2020 FINDINGS: There is stable cardiomegaly. Moderate-sized pleural effusions persist without significant change, right greater than left. Airspace opacities in the mid and lower lung zones are similar to th e comparison examination, likely atelectasis. There are changes of prior cardiac valve surgery. No pn eumothorax is identified. A left internal jugular central venous catheter has been removed. IMPRESSION: 1. Stable cardiomegaly. 2. Moderate-sized pleural effusions without significant change. 3. Stable airspace opacities of the mid and lower lung zones consistent with atelectasis. Reviewed, dictated and finalized at location [facility]. IMPRESSION: 1. Stable cardiomegaly. 2. Moderate-sized pleural effusions without significant change. 3. Stable airspace opacities of the mid and lower lung zones consistent with at electasis.
--- NOTE | ~2020-05-16 | XR_ITS ---
XR chest 1V portable 05/18/2020 05:38 Indication: Acute respiratory failure Procedure: AP portable chest Comparison: Comparison to multiple prior studies sequentially, with oldest reviewed study dated 03/2020. Findings: Cardiomegaly with interstitial edema. Small pleural effusions. Status post median sternotom y for CABG. There is a prosthetic heart valve. Impression: 1: Cardiomegaly with progression of pulmonary edema. Reviewed, dictated and finalized at location [facility]. Impression: 1: Cardiomegaly with progression of pulmonary edema.
--- NOTE | 2020-05-16 08:03 | ECG_ITS ---
Measurements Intervals [place] Rate: 118 P: 20 MA: 240 QRS: -49 QRSD: 165 T: 113 QT: 371 QTc: 522 Interpretive Statements ATRIAL TACHYCARDIA WITH RAPID VENTRICULAR RESPONSE LEFT ATRIAL ENLARGEMENT LEFT AXIS DEVIATION LEFT BUNDLE BRANCH BLOCK BASELINE ARTIFACT- I, II, AVR, AVL, AVF, V1, V6 ABNORMAL ECG Electronically Signed On 05-16-2020 8:10:15 CDT by Simon Malave D.O.
--- NOTE | 2020-05-16 08:08 | ED.SOB ---
HPI - SOB/Dyspnea General Chief Complaint: Shortness of Breath/Dyspnea Stated Complaint: SOB Source: RN notes reviewed History of Present Illness HPI Narrative: Patient presents emergency department from dialysis for shortness of breath. The patient went dialysis this morning and received approximately 30 minutes of dialysis when she became short of breath. At that time patient had O2 saturation of 86% was placed on 2 L nasal cannula. When EMS arrived patient was noted to be in respiratory distress and was placed on 15 L of nonrebreather. Patient had been initially less responsive is now waking up more currently awake and alert x2. Denies any current pain states she was not short of breath prior to going to dialysis. Patient was recently admitted to the hospital had just been discharged 2 days ago. Denies any fevers or chills chest pain. Patient did have cover testing while in the hospital Related Data Home Medications Medication Instructions Recorded Confirmed bumetanide 1 mg PO BID 05/16/20 05/16/20 melatonin 3 mg PO HS PRN 05/16/20 05/16/20 trazodone 50 mg PO HS 05/16/20 05/16/20 Allergies Allergy/AdvReac Type Severity Reaction Status Date / Time Iodinated Contrast Media Allergy Severe Loss of Verified 05/16/20 08:29 Consciousness Contrast Media Allergy Severe Loss of Uncoded 11/02/19 13:12 Consciousness Review of Systems Review of Systems: Narrative: Gen.: Denies fevers or chills ENT: Denies congestion Respiratory: See for CV: Denies chest pain or palpitations GI: Denies abdominal pain nausea, emesis or diarrhea chronic renal failure dialysis Musculoskeletal: Denies back pain or muscle pain Neuro: Denies numbness, tingling, weakness or focal weakness Skin: Denies rash Except as documented, all other systems reviewed and negative [facility] Past Medical History Medical History Aortic valve stenosis Echocardiogram in December 2019 showed at least mild bioprosthetic aortic valve stenosis with an aortic valve area of 1.4 centimeter squared. Asthma Cerebrovascular accident (~2013) Following coronary artery bypass grafting in 2013, with mild right hand weakness. Chronic anemia Chronic kidney disease, stage 5 GFR in December 2019 was around 13. She does have right upper extremity fistula as she nears dialysis. Chronic obstructive pulmonary disease Patient is a lifelong nonsmoker, and this diagnosis is poorly documented in her electronic medical records. Congestive heart failure (~12/2019) Echocardiogram was a technically difficult study with limited views. Left ventricular systolic function was mildly reduced with an estimated ejection fraction of 50 to 55%, moderately increased left ventricular wall thickness, left ventricular septal wall motion abnormality related to bundle branch block, and grade 1 diastolic dysfunction. Coronary artery disease Status post three-vessel CABG in 2014 done at [facility]. Diverticulitis Essential hypertension Hyperlipidemia Ischemic cardiomyopathy Patient previously declined ICD went ejection fraction was much lower (recent EF of 50 to 55% on echocardiogram done in December 2019). Left bundle branch block Osteoarthritis Pseudomyxoma peritonei Shoulder fracture, left Surgically constructed arteriovenous fistula Type 2 diabetes mellitus Social History Social History Social History: The patient is and lives with her in [place]. She retired from [employer]. She is a lifelong nonsmoker and denies alcohol and drug use. Her , Yariel Reid, and he wishes her to be a full code. Substance use type: unknown Gender identity (if verbalized by the patient): Female Spiritual care concerns: No Agree to blood products: No Exam Narrative: Exam Narrative: APPEARANCE: Acute respiratory distress, sitting upright
[2020-05-16 08:20] LABS: Alveolar/Arterial O2 Gradient 8.6 mmHg; Base Excess ABG 0.2 mEq/l (+/-2.0); Fractional Inspired Oxygen 28 %; HCO3 ABG 25.9 mEq/l (22.0-26.0); Oxygen Content ABG 11.8 %vol (16.0-22.0); Oxygen Saturation ABG 98.6 % (95.0-100.0); Oxyhemoglobin 96.6 % THb (90.0-100.0); PCO2 ABG 47.6 mmHg (35.0-45.0); PO2 ABG 134.9 mmHg (80.0-100.0); PO2 FiO2 Ratio Arterial Blood 4.82 %; Total Hemoglobin 8.5 g/dL (12.0-18.0); pH ABG 7.354 (7.350-7.450)
[2020-05-16] MEDS: methylPREDNISolone SOD SUCC 125 MG VIAL IV PUSH (08:20)
[2020-05-16 08:23] LABS: Basophils Percent Auto 0.1 % (0.2-1.2); Hematocrit 29.2 % (37.0-47.0); Hemoglobin 8.3 g/dL (12.0-15.0); Immature Granulocyte Absolute 1.37 K/mm3 (0.00-0.031); Immature Granulocyte Percent A 5.5 % (0-0.5); Lymphocytes Absolute Auto 1.12 K/mm3 (0.9-3.2); Lymphocytes Percent Auto 4.5 % (18.3-44.2); Mean Corpuscular HGB Conc 28.4 g/dl (32-36); Mean Corpuscular Hemoglobin 28.7 pg (26-34); Mean Platelet Volume 11.6 fl (7.4-10.4); Monocytes Absolute Auto 0.9 K/mm3 (0.1-0.6); Monocytes Percent Auto 3.6 % (2.6-8.5); Neutrophils Absolute Auto 21.6 K/mm3 (1.3-6.7); Neutrophils Percent Auto 86.3 % (45.5-73.1); Nucleated Red Blood Cells Absolute Auto 0.1 K/mm3 (0.0-0.012); Nucleated Red Blood Cells Perc 0.2 % (0.0-0.2); Platelet Count Result 185 k/mm3 (150-375); Red Blood Count 2.89 M/mm3 (4.2-5.4); Red Cell Distribution Width 18.6 % (11.5-14.5)
[2020-05-16 08:23] LABS: Device NASAL CANNULA; Modified Allen's Test Pass; Site Drawn LEFT RADIAL
[2020-05-16] MEDS: IPRATROPIUM BR 0.02% INH SOLN 0.5 MG/2.5 ML VIAL INHALATION ×2 (08:26→14:53)
[2020-05-16 08:35] LABS: INR 1.2; Prothrombin Time 14.5 Seconds (11.1-14.7)
[2020-05-16 08:36] LABS: Partial Thromboplastin Time 26.9 SECONDS (22.3-36.8)
[2020-05-16 08:43] LABS: Alanine Aminotransferase 23 U/L (4-35); Alkaline Phosphatase 165 U/L (38-126); Aspartate Amino Transferase 32 U/L (14-36); Bilirubin,Total 0.7 mg/dL (0.2-1.3); Blood Urea Nitrogen 45 mg/dL (7-17); Calcium 8.6 mg/dL (8.4-10.2); Carbon Dioxide 29 mmol/L (22-30); Chloride 99 mmol/L (98-107); Estimated Glomerular Filt Rate 10; Glucose 276 mg/dL (65-105); Sodium 139 mmol/L (137-145)
[2020-05-16 09:02] LABS: NT Pro B Type Natriuretic Pept > 35000 PG/ML (5-100); Troponin I 0.107 ng/mL (0.000-0.034)
[2020-05-16] MEDS: ASPIRIN 81 MG CHEWABLE TABLET 324 MG PO (09:35)
--- NOTE | 2020-05-16 10:51 | ADMGEN ---
This patient, Martha Reid, was admitted to Intensive Care Unit-4. Patient/family oriented to hospital policies and general routines including ID bracelet, bed and alarms, visiting hours, pain management, procedures, bathroom and other care routines, personal items, smoking policy, room service/diet, and visiting hours. Valuables list has been completed. Information on how to activate the Rapid Response Team has been discussed. Patient/Family are encouraged to report perceived risks to care and to ask questions if they do not understand what they are told or what they should do.
[2020-05-16 12:31] LABS: Troponin I 0.089 ng/mL (0.000-0.034)
--- NOTE | 2020-05-16 13:34 | PM.CNNEP ---
Assessment and Plan Assessment and plan (1) End stage renal disease: Code(s): N18.6 - End stage renal disease Status: Chronic Assessment and Plan: The patient is end-stage renal disease. She is due for dialysis today. She had a partial treatment this morning but not very much. Will order a dry ultrafiltration for an hour and then switch over to hemo for another couple of hours. Hopefully will this will enable us to get extra fluid off. (2) Acute respiratory failure: Qualifiers: Respiratory failure complication: unspecified whether with hypoxia or hypercapnia Qualified Code(s): J96.00 - Acute respiratory failure, unspecified whether with hypoxia or hypercapnia Code(s): J96.00 - Acute respiratory failure, unspecified whether with hypoxia or hypercapnia Status: Acute Assessment and Plan: This is multifactorial. She does have bilateral pleural effusions and so probably has some volume overload. She has chronic respiratory insufficiency as well. On dialysis a few weeks ago and at that time she had venous Dopplers which were negative and the CTa of the chest which was negative for pulmonary embolism. Her troponin is slightly elevated but this is about which she usually runs. So I think the elevation in troponin is probably from her kidneys. (3) Anemia: Code(s): D64.9 - Anemia, unspecified Status: Acute Assessment and Plan: Hemoglobin is mildly low. Will give Epogen. (4) Diabetes: Code(s): E11.9 - Type 2 diabetes mellitus without complications Status: Acute Assessment and Plan: On Accu-Cheks and sliding-scale insulin (5) Congestive heart failure: Onset Date: ~12/2019 Qualifiers: Heart failure type: combined systolic and diastolic Heart failure chronicity: acute on chronic Qualified Code(s): I50.43 - Acute on chronic combined systolic (congestive) and diastolic (congestive) heart failure Code(s): I50.9 - Heart failure, unspecified Status: Acute Assessment and Plan: Heart failure. Her ejection fraction is only 25-30% on the last echo. She has moderate mitral regurgitation, moderate aortic stenosis, and moderate to severe tricuspid regurgitation with moderate pulmonary hypertension. Will try to keep as much fluid off as possible. (6) Essential hypertension: Code(s): I10 - Essential (primary) hypertension Status: Acute Assessment and Plan: Her blood pressure is well controlled History of Present Illness Reason for Consult Consult date: 05/16/20 Chief Complaint Chief complaint: Acute respiratory distress with hypoxia/chronic re History of Present Illness Narrative: Martha is a very pleasant 70-year-old lady who has multiple medical problems including end-stage renal disease, hyperlipidemia, hypertension, coronary artery disease status post AK, ischemic cardiomyopathy, left bundle branch block, TIA, hyperlipidemia, diabetes, stroke. The patient was in the hospital for a long time up until about 3 days ago. Early on she came in with fluid overload. She was intubated and in the ICU. She was felt to possibly have pneumonia so she was given a 9 day course of antibiotics. She also had a UTI. She had metabolic acidosis which improved with dialysis. She ended up on dialysis. She was tolerating the procedures pretty well. She was relatively close to discharge when she developed shortness of breath suddenly a few days before she actually went home. She had a significant workup in it was felt that fluid was the reason. She had a few more dialysis sessions removing fluid and she improved. She did fairly well with the last couple of days in the assisted. This morning she went to dialysis. Before she started she was comfortable and had an O2 sat in the mid 90s. When she started dialysis she started becoming anxious. Her O2 sats dropped to the 80s. She was placed on oxygen. She continued
[2020-05-16] MEDS: LEVALBUTEROL NEB 1.25 MG/3 ML 0.63 MG INHALATION (14:54)
--- NOTE | 2020-05-16 15:35 | PM.IMHP ---
H&P: HPI History of Present Illness Chief complaint: Acute respiratory distress with hypoxia/chronic re Narrative: Martha Reid is a 70 year old female who is end-stage renal disease on dialysis Wednesday. The patient was in dialysis today when she became short of breath. The patient tells me that she has been short of breath for couple days. She typically wears oxygen at 2 L per nasal cannula which is what she is on now. The patient denies any fever or chills. The patient was discharged from here on 05/14/2020 during that time she had been tested for COVID was found to be negative. Nephrology has been consulted today and is now receiving dialysis. The patient was in dialysis today when she became short of breath. She only received a partial treatment this morning it was a very much. Patient was ordered a dry ultrafiltration for an hour and then switch over to hemo for another couple of hours. The patient does have extra fluid at this time. Patient has bilateral pleural effusions most likely due to some fluid overload. Her CT of the chest was negative for pulmonary embolism. Her troponin was slightly elevated but is her usual. Most likely due to her end-stage renal disease. The patient also has any junction fraction of 25-30% on her last echo. She also has moderate mitral regurgitation, moderate aortic stenosis, and moderate to severe tricuspid regurgitation with moderate pulmonary hypertension. The patient was given Solu-Medrol, Xopenex, Atrovent, aspirin, IV fluids, which was a bolus in the emergency room. Date of service 05/16/2020. Review of Systems Review of Systems: All systems reviewed & are unremarkable except as noted in HPI and below Constitutional: Constitutional: Reports as per HPI and Reports no additional constitutional complaints Eyes: Eyes: Reports as per HPI and Reports no additional eye complaints ENT: Reports system reviewed and no additional complaints, except as documented and Reports Normal hearing present Cardiovascular: Cardiovascular: Reports no additional cardiovascular complaints Respiratory: Respiratory: Reports no additional respiratory complaints and Reports no additional respiratory complaints Gastrointestinal: Gastrointestinal: Reports as per HPI and Reports no additional gastrointestinal complaints Musculoskeletal: Musculoskeletal: Reports no additional musculoskeletal complaints Integumentary/Breasts: Skin/Breast: Reports system reviewed and no additional complaints, except as docu and Reports as per HPI Neurologic: Reports system reviewed and no additional complaints, except as documented, Reports as per HPI and Reports Normal hearing present Psychiatric: Psychiatric: Reports no additional psychiatric complaints and Reports as per HPI Endocrine: Endocrine: Reports no additional endocrine complaints Hematologic/Lymphatic: Hematologic/Lymphatic: Reports no additional hematologic/lymphatic complaints Allergic/Immunologic: Allergic/Immunologic: Reports no additional allergic/immunologic complaints [facility] Past Medical History Medical History Aortic valve stenosis Echocardiogram in December 2019 showed at least mild bioprosthetic aortic valve stenosis with an aortic valve area of 1.4 centimeter squared. Asthma Cerebrovascular accident (~2013) Following coronary artery bypass grafting in 2013, with mild right hand weakness. Chronic anemia Chronic kidney disease, stage 5 GFR in December 2019 was around 13. She does have right upper extremity fistula as she nears dialysis. Chronic obstructive pulmonary disease Patient is a lifelong nonsmoker, and this diagnosis is poorly documented in her electronic medical records. Congestive heart failure (~12/2019) Echocardiogram was a technically difficult study with limited views. Left ventricular systolic function was mildly reduced with an estimated ejection fraction of 50 to 55%, moderate
[2020-05-16] MEDS: EPOETIN ALFA 10,000 UNITS/ML VIAL 10000 UNITS IV PUSH (16:03)
[2020-05-16 17:44] LABS: Glucose Point of Care 141 (65-105)
[2020-05-16 17:47] LABS: Troponin I 0.101 ng/mL (0.000-0.034)
[2020-05-16] MEDS: MIDODRINE HCL 10 MG TABLET PO (17:56)
[2020-05-16] MEDS: DOCUSATE SODIUM 100 MG CAPSULE PO (20:52)
[2020-05-16] MEDS: lisinopriL 5 MG TABLET PO (20:52)
[2020-05-16] MEDS: TRAZODONE HCL 50 MG TABLET PO (20:53)
[2020-05-16] MEDS: FAMOTIDINE 20 MG TABLET PO (20:54)
[2020-05-16 21:07] LABS: Glucose Point of Care 222 (65-105)
--- NOTE | 2020-05-16 21:24 | PC.NURSE ---
ED requested assessment of patient's right ue avg - 15 minutes RN consult ([id number])
[2020-05-16] MEDS: ACETAMINOPHEN 325 MG TABLET 650 MG PO (22:52)
[2020-05-17] VITALS (11 sets, daily range): BP systolic 103–136; BP diastolic 46–57; PULSE 79–92; RESP 17–23; TEMP 36.7–37.6; O2SAT 92–100
[2020-05-17 05:52] LABS: Basophils Percent Auto 0.1 % (0.2-1.2); Hematocrit 25.3 % (37.0-47.0); Hemoglobin 7.4 g/dL (12.0-15.0); Immature Granulocyte Absolute 0.07 K/mm3 (0.00-0.031); Immature Granulocyte Percent A 0.6 % (0-0.5); Lymphocytes Absolute Auto 1.04 K/mm3 (0.9-3.2); Lymphocytes Percent Auto 9.1 % (18.3-44.2); Mean Corpuscular HGB Conc 29.2 g/dl (32-36); Mean Corpuscular Hemoglobin 29.1 pg (26-34); Mean Corpuscular Volume 99.6 fl (80-100); Mean Platelet Volume 11.7 fl (7.4-10.4); Monocytes Absolute Auto 0.7 K/mm3 (0.1-0.6); Monocytes Percent Auto 6.3 % (2.6-8.5); Neutrophils Absolute Auto 9.6 K/mm3 (1.3-6.7); Neutrophils Percent Auto 83.9 % (45.5-73.1); Nucleated Red Blood Cells Absolute Auto 0.1 K/mm3 (0.0-0.012); Nucleated Red Blood Cells Perc 0.6 % (0.0-0.2); Platelet Count Result 181 k/mm3 (150-375); Red Blood Count 2.54 M/mm3 (4.2-5.4); Red Cell Distribution Width 18.3 % (11.5-14.5); White Blood Count 11.5 K/mm3 (4.5-10.0)
[2020-05-17 05:54] LABS: Blood Urea Nitrogen 41 mg/dL (7-17); Calcium 8.2 mg/dL (8.4-10.2); Carbon Dioxide 27 mmol/L (22-30); Chloride 97 mmol/L (98-107); Estimated CRCL calculation 13 ml/min; Estimated Glomerular Filt Rate 12; Glucose 247 mg/dL (65-105); Potassium 4.2 mmol/L (3.4-5.0); Sodium 134 mmol/L (137-145)
[2020-05-17] MEDS: ISOSORBIDE MONONITRATE 30 MG TAB.ER.24H PO (08:11)
[2020-05-17] MEDS: ATORVASTATIN 20 MG TABLET PO (08:11)
[2020-05-17] MEDS: DOCUSATE SODIUM 100 MG CAPSULE PO ×2 (08:11→22:30)
[2020-05-17] MEDS: ASPIRIN 325 MG TABLET PO (08:11)
[2020-05-17] MEDS: CALCIUM ACETATE 667 MG TABLET PO ×3 (08:11→16:47)
[2020-05-17] MEDS: FAMOTIDINE 20 MG TABLET PO ×2 (08:11→22:29)
[2020-05-17] MEDS: MIDODRINE HCL 10 MG TABLET PO ×3 (08:11→16:47)
[2020-05-17] MEDS: BUMETANIDE 1 MG TABLET PO ×2 (08:11→16:47)
[2020-05-17] MEDS: lisinopriL 5 MG TABLET PO ×2 (08:12→22:29)
[2020-05-17 08:19] LABS: Glucose Point of Care 211 (65-105)
[2020-05-17] MEDS: INSULIN GLARGINE (*BKC) 100 UNITS/ML SUB-Q (09:49)
[2020-05-17] MEDS: INSULIN ASPART (*BKC) 100 UNITS/ML SUB-Q ×3 (09:50→16:48)
--- NOTE | 2020-05-17 11:44 | PM.PNNEP ---
Progress Note: A&P Assessment and Plan (1) End stage renal disease: Code(s): N18.6 - End stage renal disease Status: Chronic Assessment and Plan: The patient has end-stage renal disease. She had dialysis yesterday. We removed fluid. Oxygenation is much better today. (2) Acute respiratory failure: Qualifiers: Respiratory failure complication: unspecified whether with hypoxia or hypercapnia Qualified Code(s): J96.00 - Acute respiratory failure, unspecified whether with hypoxia or hypercapnia Code(s): J96.00 - Acute respiratory failure, unspecified whether with hypoxia or hypercapnia Status: Acute Assessment and Plan: This is multifactorial. COPD and volume are the 2 major issues. Will remove more fluid tomorrow. (3) Anemia: Code(s): D64.9 - Anemia, unspecified Status: Acute Assessment and Plan: Hemoglobin is low. Getting Epogen. I cannot tell from the soft for whether iron levels have been checked lately so I will check these. (4) Diabetes: Code(s): E11.9 - Type 2 diabetes mellitus without complications Status: Acute Assessment and Plan: On Accu-Cheks and sliding-scale insulin (5) Congestive heart failure: Onset Date: ~12/2019 Qualifiers: Heart failure type: combined systolic and diastolic Heart failure chronicity: acute on chronic Qualified Code(s): I50.43 - Acute on chronic combined systolic (congestive) and diastolic (congestive) heart failure Code(s): I50.9 - Heart failure, unspecified Status: Acute Assessment and Plan: Heart failure. Her ejection fraction is only 25-30% on the last echo. She has moderate mitral regurgitation, moderate aortic stenosis, and moderate to severe tricuspid regurgitation with moderate pulmonary hypertension. Will try to keep as much fluid off as possible. (6) Essential hypertension: Code(s): I10 - Essential (primary) hypertension Status: Acute Assessment and Plan: Her blood pressure is well controlled Subjective Date/time seen: 05/17/20 11:44 Interval history: Martha is feeling better today. She feels like she is in fpc and wants to go home. We discussed how sick she was yesterday and why she is here. She is comfortable breathing now. Her O2 sat is 100% on 1L of oxygen. Review of Systems Cardiovascular: Cardiovascular: Reports no additional cardiovascular complaints Respiratory: Respiratory: Reports no additional respiratory complaints Gastrointestinal: Gastrointestinal: Reports no additional gastrointestinal complaints Genitourinary: Genitourinary: Reports no additional female genitourinary complaints Exam Narrative: Exam Narrative: WDWN in NAD skin no rash or subcu nodules head ncat lungs clear bilaterally cor reg no rub abd BS+ nontender and soft ext no edema. Objective Data Vital Signs Vital Signs: Vital Signs - 24 hr 05/16/20 12:00 05/16/20 14:00 05/16/20 14:16 Temperature 36.9 C 36.9 C Pulse Rate 110 H 110 H 109 H Respiratory Rate 22 H 38 H Blood Pressure 117/70 116/68 114/68 Pulse Oximetry 99 98 05/16/20 14:30 05/16/20 14:45 05/16/20 14:54 Temperature Pulse Rate 109 H 108 H 110 H Respiratory Rate 33 H Blood Pressure 114/70 106/65 Pulse Oximetry 05/16/20 15:00 05/16/20 15:05 05/16/20 15:15 Temperature Pulse Rate 112 H 108 H 109 H Respiratory Rate 31 H Blood Pressure 113/68 103/61 Pulse Oximetry 05/16/20 15:30 05/16/20 15:40 05/16/20 15:42 Temperature Pulse Rate 112 H 85 109 H Respiratory Rate Blood Pressure 103/74 Pulse Oximetry 05/16/20 15:45 05/16/20 16:00 05/16/20 16:15 Temperature Pulse Rate 108 H 109 H 109 H Respiratory Rate 16 Blood Pressure 93/52 L 100/57 L 98/53 L Pulse Oximetry 94 05/16/20 16:30 05/16/20 16:45 05/16/20 17:00 Temperature Pulse Rate 113 H 110 H 80 Respiratory Rate Blood Press
[2020-05-17 13:09] LABS: Glucose Point of Care 226 (65-105)
[2020-05-17 13:37] LABS: SARS-CoV-2 RNA PCR Negative
--- NOTE | 2020-05-17 16:24 | PC.NURSE ---
This patient, Martha Reid, was transferred to [facility] on 05/17/20 at 1615. Personal belongings sent with patient. Report given to nurse. Appropriate documentation sent with patient.
--- NOTE | 2020-05-17 17:11 | PC.NURSE ---
Pt has transferred to this unit from ICU/4 at 1630. Pt is A&O x 4. Pt has no complaints at this time, and is resting comfortably in bed. Pt has a dialysis fistula in R upper arm, and is a limb alert on that side. Pt exhibits no signs of distress or difficulty since arriving to this unit. Assisted pt in ordering her dinner. Pt has call light within reach, and will continue to be monitored.
--- NOTE | 2020-05-17 17:18 | PM.IMPN ---
Progress Note: A&P Assessment and Plan (1) Acute respiratory failure with hypoxia: Code(s): J96.01 - Acute respiratory failure with hypoxia Status: Acute Assessment and Plan: The patient is currently on her home oxygen level at 2 L per nasal cannula. The patient's chest x-ray did show some pulmonary edema. Moderate size pleural effusions without significant change. Patient only received a partial hemodialysis 05/16 at dialysis center due to the shortness of breath. But 3200 mL removed with dialysis here. The patient stated that she is feeling much better. The patient is chronically on 2 L per nasal cannula. She is being tested for covid 19 again and returned negative again. Patient has no fever chills. Patient stated she is feeling better now after getting a dialysis treatment. Hopefully the moderate-sized pleural effusion will improve without thoracentesis(which she had last visit and was a transudate). (2) Suspected COVID-19 virus infection: Code(s): Z20.828 - Contact with and (suspected) exposure to other viral communicable diseases Status: Acute Assessment and Plan: Patient has been checked approximately 1 week ago was found to be negative and repeat again negative (3) Chronic renal failure: Code(s): N18.9 - Chronic kidney disease, unspecified Status: Acute Assessment and Plan: Resume her Wednesday schedule (4) Diabetes: Code(s): E11.9 - Type 2 diabetes mellitus without complications Status: Acute Assessment and Plan: Continue with Accu-Cheks AC and HS. Continue with her Lantus. (5) Elevated troponin: Code(s): R79.89 - Other specified abnormal findings of blood chemistry Status: Acute Assessment and Plan: Most likely due to her chronic renal failure. She is chronically elevated. Her numbers are starting to trend down now. She is at her baseline at this time. No complaints of chest pain. And no further evaluation. No ischemia (6) Chronic systolic heart failure: Code(s): I50.22 - Chronic systolic (congestive) heart failure Status: Acute Assessment and Plan: Patient's ejection fraction is approximately 25% with last echo Continue with her lisinopril and isosorbide and her Bumex. (7) Hyperlipidemia LDL goal <70: Code(s): E78.5 - Hyperlipidemia, unspecified Status: Acute Assessment and Plan: Continue with atorvastatin. Subjective Date/time seen: 05/17/20 17:18 Interval history: Date of visit 05/17. 70-year-old hypertensive type 2 diabetic with known systolic heart failure chronic renal failure on dialysis who was discharged from the hospital 05/14 and now readmitted with increasing shortness breath which she developed at dialysis. Denies any chest pain. Had 3200 mL removed 05/16 abdominal assess here and is feeling better Exam Narrative: Exam Narrative: Blood pressure 114/52 pulse is 86 sat 92% on 2 L nasal cannula temp 37.6? Pupils equal reactive to light sclera anicteric Lungs clear with faint crackle left posterior base CV faint systolic murmur regular Abdomen is soft nontender Extremities without edema distal pulses 1+ Neuro alert but oriented to person place Objective Data Vital Signs Vital Signs: Vital Signs - 24 hr 05/16/20 17:30 05/16/20 18:00 05/16/20 20:00 Temperature 36.2 C L 36.7 C Pulse Rate 83 84 87 Respiratory Rate 15 19 Blood Pressure 105/48 L 128/57 L Pulse Oximetry 95 99 05/16/20 22:00 05/17/20 00:00 05/17/20 02:00 Temperature 36.9 C Pulse Rate 94 85 92 Respiratory Rate 19 Blood Pressure 114/57 L Pulse Oximetry 98 05/17/20 04:00 05/17/20 06:00 05/17/20 08:00 Temperature 36.7 C 36.8 C Pulse Rate 84 79 86 Respiratory Rate 17 23 H Blood Pressure 136/55 L 103/46 L Pulse Oximetry 100 100 05/17/20 10:00 05/17/20 16:22 05/17/20 16:41 Temperature 37.6 C H Pulse Rate 92 89 Respiratory Rate 18 Blood Press
[2020-05-17 22:25] LABS: Glucose Point of Care 316 (65-105)
[2020-05-17] MEDS: TRAZODONE HCL 50 MG TABLET PO (22:29)
[2020-05-17 23:10] LABS: Glucose Point of Care 289 (65-105)
[2020-05-18] VITALS (27 sets, daily range): BP systolic 81–135; BP diastolic 46–67; PULSE 78–96; RESP 16–20; TEMP 36.4–37; O2SAT 93–98
[2020-05-18 04:59] LABS: Alveolar/Arterial O2 Gradient 33.2 mmHg; Base Excess ABG 2.8 mEq/l (+/-2.0); Carboxyhemoglobin 0.5 % THb (0-2.0); Fractional Inspired Oxygen 24 %; HCO3 ABG 28.1 mEq/l (22.0-26.0); Methemoglobin ABG 0.1 %THb (0-1.5); Oxygen Content ABG 10.9 %vol (16.0-22.0); Oxygen Saturation ABG 95.9 % (95.0-100.0); Oxyhemoglobin 94.4 % THb (90.0-100.0); PCO2 ABG 47.2 mmHg (35.0-45.0); PO2 ABG 81.8 mmHg (80.0-100.0); PO2 FiO2 Ratio Arterial Blood 3.41 %; Total Hemoglobin 8.1 g/dL (12.0-18.0); pH ABG 7.392 (7.350-7.450)
[2020-05-18 05:00] LABS: Device NASAL CANNULA; Modified Allen's Test Pass; Site Drawn LEFT RADIAL
[2020-05-18] MEDS: INSULIN GLARGINE (*BKC) 100 UNITS/ML SUB-Q (07:55)
[2020-05-18] MEDS: ATORVASTATIN 20 MG TABLET PO (07:59)
[2020-05-18] MEDS: ISOSORBIDE MONONITRATE 30 MG TAB.ER.24H PO (08:00)
[2020-05-18] MEDS: ASPIRIN 325 MG TABLET PO (08:00)
[2020-05-18] MEDS: MIDODRINE HCL 10 MG TABLET PO ×3 (08:00→17:27)
[2020-05-18] MEDS: CALCIUM ACETATE 667 MG TABLET PO ×3 (08:00→17:27)
[2020-05-18] MEDS: FAMOTIDINE 20 MG TABLET PO ×2 (08:00→19:55)
[2020-05-18] MEDS: BUMETANIDE 1 MG TABLET PO ×2 (08:00→17:27)
[2020-05-18] MEDS: DOCUSATE SODIUM 100 MG CAPSULE PO ×2 (08:01→19:55)
[2020-05-18] MEDS: lisinopriL 5 MG TABLET PO ×2 (08:01→19:55)
[2020-05-18 08:29] LABS: Hematocrit 25.9 % (37.0-47.0); Hemoglobin 7.5 g/dL (12.0-15.0); Mean Corpuscular Hemoglobin 28.8 pg (26-34); Mean Corpuscular Volume 99.6 fl (80-100); Mean Platelet Volume 11.7 fl (7.4-10.4); Platelet Count Result 224 k/mm3 (150-375); Red Cell Distribution Width 18.1 % (11.5-14.5); White Blood Count 11.8 K/mm3 (4.5-10.0)
[2020-05-18 08:40] LABS: Lactic Acid 0.9 mmol/L (0.7-2.1)
[2020-05-18 09:11] LABS: Iron 26 ug/dL (37-170)
[2020-05-18 09:20] LABS: Percent Iron Saturation 8 % (20-50)
[2020-05-18 09:51] LABS: Glucose Point of Care 170 (65-105)
[2020-05-18 10:00] LABS: Blood Urea Nitrogen 62 mg/dL (7-17); Calcium 7.6 mg/dL (8.4-10.2); Carbon Dioxide 30 mmol/L (22-30); Chloride 97 mmol/L (98-107); Estimated CRCL calculation 10 ml/min; Estimated Glomerular Filt Rate 9; Glucose 186 mg/dL (65-105); Magnesium 2.1 mg/dL (1.6-2.3); Phosphorus 4.9 mg/dL (2.5-4.5); Potassium 3.9 mmol/L (3.4-5.0); Sodium 136 mmol/L (137-145)
[2020-05-18] MEDS: EPOETIN ALFA 10,000 UNITS/ML VIAL 10000 UNITS IV PUSH (10:39)
--- NOTE | 2020-05-18 11:36 | PM.PNNEP ---
Progress Note: A&P Assessment and Plan (1) End stage renal disease: Code(s): N18.6 - End stage renal disease Status: Chronic Assessment and Plan: The patient has end-stage renal disease. She is getting dialysis now. We are removing fluid. Oxygenation is much better today. (2) Acute respiratory failure: Qualifiers: Respiratory failure complication: unspecified whether with hypoxia or hypercapnia Qualified Code(s): J96.00 - Acute respiratory failure, unspecified whether with hypoxia or hypercapnia Code(s): J96.00 - Acute respiratory failure, unspecified whether with hypoxia or hypercapnia Status: Acute Assessment and Plan: This is multifactorial. COPD and volume are the 2 major issues. Removing fluid. COVID negative. (3) Anemia: Code(s): D64.9 - Anemia, unspecified Status: Acute Assessment and Plan: Hemoglobin is low. Getting Epogen. T sat only 8. Will give iron (4) Diabetes: Code(s): E11.9 - Type 2 diabetes mellitus without complications Status: Acute Assessment and Plan: On Accu-Cheks and sliding-scale insulin (5) Congestive heart failure: Onset Date: ~12/2019 Qualifiers: Heart failure type: combined systolic and diastolic Heart failure chronicity: acute on chronic Qualified Code(s): I50.43 - Acute on chronic combined systolic (congestive) and diastolic (congestive) heart failure Code(s): I50.9 - Heart failure, unspecified Status: Acute Assessment and Plan: Heart failure. Her ejection fraction is only 25-30% on the last echo. She has moderate mitral regurgitation, moderate aortic stenosis, and moderate to severe tricuspid regurgitation with moderate pulmonary hypertension. Will try to keep as much fluid off as possible. (6) Essential hypertension: Code(s): I10 - Essential (primary) hypertension Status: Acute Assessment and Plan: Her blood pressure is well controlled Subjective Date/time seen: 05/18/20 11:36 Interval history: Martha is feeling better today. She is somewhat terse today She is on dialysis. She is tolerating it well. We are removing some fluid. She was seen at 11:00 a.m. Review of Systems Cardiovascular: Cardiovascular: Reports no additional cardiovascular complaints Respiratory: Respiratory: Reports no additional respiratory complaints Gastrointestinal: Gastrointestinal: Reports no additional gastrointestinal complaints Genitourinary: Genitourinary: Reports no additional female genitourinary complaints Exam Narrative: Exam Narrative: WDWN in NAD skin no rash or subcu nodules head ncat lungs clear to auscultation cor reg no rub abd BS+ nontender and soft ext no edema. Or cyanosis Objective Data Vital Signs Vital Signs: Vital Signs - 24 hr 05/17/20 16:22 05/17/20 16:41 05/17/20 21:45 Temperature 37.6 C H Pulse Rate 89 Respiratory Rate 18 Blood Pressure 115/52 L Pulse Oximetry 92 92 96 05/17/20 22:14 05/17/20 22:25 05/18/20 06:00 Temperature 37.0 C 36.4 C Pulse Rate 84 79 Respiratory Rate 18 18 Blood Pressure 121/50 L 120/48 L Pulse Oximetry 99 96 98 05/18/20 08:10 05/18/20 08:24 05/18/20 08:30 Temperature 36.8 C Pulse Rate 83 81 80 Respiratory Rate 18 Blood Pressure 126/63 125/63 135/67 Pulse Oximetry 05/18/20 08:45 05/18/20 09:00 05/18/20 09:04 Temperature Pulse Rate 78 78 84 Respiratory Rate Blood Pressure 120/63 106/57 L 110/59 L Pulse Oximetry 05/18/20 09:15 05/18/20 09:30 05/18/20 09:45 Temperature Pulse Rate 81 86 88 Respiratory Rate Blood Pressure 98/54 L 101/55 L 97/55 L Pulse Oximetry 05/18/20 10:00 05/18/20 10:07 05/18/20 10:15 Temperature Pulse Rate 85 84 80 Respiratory Rate Blood Pressure 81/51 L 98/47 L 93/47 L Pulse Oximetry 05/18/20 10:30 05/18/20 10:45 05/18/20 10:56 Temperature Pulse Rate
--- NOTE | 2020-05-18 12:48 | PM.IMPN ---
Progress Note: A&P Assessment and Plan (1) Acute respiratory failure with hypoxia: Code(s): J96.01 - Acute respiratory failure with hypoxia Status: Acute Assessment and Plan: The patient is currently on her home oxygen level at 2 L per nasal cannula. The patient's chest x-ray did show some pulmonary edema. Moderate size pleural effusions without significant change again today but this film prior to todays dialysis. Patient only received a partial hemodialysis 05/16 at dialysis center due to the shortness of breath. But 3200 mL removed with dialysis here 05/16. The patient stated that she is feeling much better. The patient is chronically on 2 L per nasal cannula. She is being tested for covid 19 again and returned negative again. Patient has no fever chills. Patient stated she is feeling better now after getting a dialysis treatment. Hopefully the moderate-sized pleural effusion will improve without thoracentesis(which she had last visit and was a transudate). recheck chest xray am (2) Suspected COVID-19 virus infection: Code(s): Z20.828 - Contact with and (suspected) exposure to other viral communicable diseases Status: Acute Assessment and Plan: Patient has been checked approximately 1 week ago was found to be negative and repeat again negative (3) Chronic renal failure: Code(s): N18.9 - Chronic kidney disease, unspecified Status: Acute Assessment and Plan: Resume her Wednesday schedule (4) Diabetes: Code(s): E11.9 - Type 2 diabetes mellitus without complications Status: Acute Assessment and Plan: Continue with Accu-Cheks AC and HS. Continue with her Lantus. (5) Elevated troponin: Code(s): R79.89 - Other specified abnormal findings of blood chemistry Status: Acute Assessment and Plan: Most likely due to her chronic renal failure. She is chronically elevated. Her numbers are starting to trend down now. She is at her baseline at this time. No complaints of chest pain. And no further evaluation. No ischemia (6) Chronic systolic heart failure: Code(s): I50.22 - Chronic systolic (congestive) heart failure Status: Acute Assessment and Plan: Patient's ejection fraction is approximately 25% with last echo Continue with her lisinopril and isosorbide and her Bumex. (7) Hyperlipidemia LDL goal <70: Code(s): E78.5 - Hyperlipidemia, unspecified Status: Acute Assessment and Plan: Continue with atorvastatin. (8) Anemia: Code(s): D64.9 - Anemia, unspecified Status: Acute Assessment and Plan: hgb 7.5 today, anemia of chronic disease. Fe and epogen per nephrology Subjective Date/time seen: 05/18/20 12:48 Interval history: Date of visit 05/18. 70-year-old hypertensive type 2 diabetic with known systolic heart failure, chronic renal failure on dialysis who was discharged from the hospital 05/14 and now readmitted with increasing shortness breath which she developed at dialysis. Denies any chest pain. Had 3200 mL removed 05/16 at dialysis here and is feeling better Attempting to remove another 3-4 liters today Exam Narrative: Exam Narrative: Blood pressure 124/62 pulse is 80 sat 98% on 1 L nasal cannula afebrile Pupils equal reactive to light sclera anicteric Lungs clear with faint crackle left posterior base CV faint systolic murmur regular Abdomen is soft nontender Extremities without edema distal pulses 1+ Neuro alert but oriented to person place Objective Data Vital Signs Vital Signs: Vital Signs - 24 hr 05/17/20 16:22 05/17/20 16:41 05/17/20 21:45 Temperature 37.6 C H Pulse Rate 89 Respiratory Rate 18 Blood Pressure 115/52 L Pulse Oximetry 92 92 96 05/17/20 22:14 05/17/20 22:25 05/18/20 06:00 Temperature 37.0 C 36.4 C Pulse Rate 84 79 Respiratory Rate 18 18 Blood Pressure 121/50 L 120/48 L Pulse Oximetry 99 96 98 05/18/20 08:
[2020-05-18 13:14] LABS: Glucose Point of Care 111 (65-105)
[2020-05-18 17:36] LABS: Glucose Point of Care 116 (65-105)
[2020-05-18] MEDS: TRAZODONE HCL 50 MG TABLET PO (19:55)
[2020-05-18] MEDS: ACETAMINOPHEN 325 MG TABLET 650 MG PO (19:55)
[2020-05-18 21:55] LABS: Glucose Point of Care 190 (65-105)
[2020-05-19] MEDS: polyethylene glycoL 3350 17 GM POWD.PACK PO (00:30)
[2020-05-19] MEDS: ACETAMINOPHEN 325 MG TABLET 650 MG PO ×2 (01:28→20:11)
[2020-05-19 06:00] VITALS: BP 107/47; PULSE 84; RESP 20; TEMP 36.7; O2SAT 98
[2020-05-19 07:10] LABS: Hematocrit 27.3 % (37.0-47.0); Hemoglobin 7.9 g/dL (12.0-15.0); Mean Corpuscular HGB Conc 28.9 g/dl (32-36); Mean Corpuscular Hemoglobin 29.4 pg (26-34); Mean Corpuscular Volume 101.5 fl (80-100); Mean Platelet Volume 11.5 fl (7.4-10.4); Platelet Count Result 220 k/mm3 (150-375); Red Blood Count 2.69 M/mm3 (4.2-5.4); Red Cell Distribution Width 17.9 % (11.5-14.5)
[2020-05-19 07:27] LABS: Lactic Acid 0.7 mmol/L (0.7-2.1)
[2020-05-19 07:32] LABS: Blood Urea Nitrogen 32 mg/dL (7-17); Calcium 7.6 mg/dL (8.4-10.2); Carbon Dioxide 31 mmol/L (22-30); Chloride 98 mmol/L (98-107); Estimated CRCL calculation 15 ml/min; Estimated Glomerular Filt Rate 15; Glucose 156 mg/dL (65-105); Magnesium 1.9 mg/dL (1.6-2.3); Phosphorus 2.9 mg/dL (2.5-4.5); Potassium 4.3 mmol/L (3.4-5.0); Sodium 134 mmol/L (137-145)
[2020-05-19 08:14] VITALS: O2SAT 96
[2020-05-19] MEDS: BUMETANIDE 1 MG TABLET PO ×2 (08:20→16:56)
[2020-05-19] MEDS: ATORVASTATIN 20 MG TABLET PO (08:20)
[2020-05-19] MEDS: INSULIN GLARGINE (*BKC) 100 UNITS/ML SUB-Q (08:20)
[2020-05-19] MEDS: CALCIUM ACETATE 667 MG TABLET PO ×3 (08:21→16:56)
[2020-05-19] MEDS: MIDODRINE HCL 10 MG TABLET PO ×3 (08:21→16:56)
[2020-05-19] MEDS: ASPIRIN 325 MG TABLET PO (08:21)
[2020-05-19] MEDS: FAMOTIDINE 20 MG TABLET PO ×2 (08:21→20:11)
[2020-05-19] MEDS: lisinopriL 5 MG TABLET PO ×2 (08:21→20:11)
[2020-05-19] MEDS: ISOSORBIDE MONONITRATE 30 MG TAB.ER.24H PO (08:21)
[2020-05-19] MEDS: DOCUSATE SODIUM 100 MG CAPSULE PO ×2 (08:21→20:11)
[2020-05-19] MEDS: IRON SUCROSE COMPLEX 100 MG/5 ML VIAL IV PUSH (08:27)
[2020-05-19 08:38] LABS: Glucose Point of Care 144 (65-105)
[2020-05-19] MEDS: BISACODYL 5 MG TABLET EC PO (10:13)
--- NOTE | 2020-05-19 10:53 | PM.PNNEP ---
Progress Note: A&P Assessment and Plan (1) End stage renal disease: Code(s): N18.6 - End stage renal disease Status: Chronic Assessment and Plan: The patient has end-stage renal disease. She had dialysis yesterday. Blood pressure was low after the 1st hour. (2) Acute respiratory failure: Qualifiers: Respiratory failure complication: unspecified whether with hypoxia or hypercapnia Qualified Code(s): J96.00 - Acute respiratory failure, unspecified whether with hypoxia or hypercapnia Code(s): J96.00 - Acute respiratory failure, unspecified whether with hypoxia or hypercapnia Status: Acute Assessment and Plan: This is multifactorial. COPD and volume are the 2 major issues. Removing fluid on dialysis but low blood pressure limited fluid removal. Will do an extra treatment tomorrow using dry ultrafiltration only. Hopefully this will enable us to remove more fluid. COVID negative. (3) Anemia: Code(s): D64.9 - Anemia, unspecified Status: Acute Assessment and Plan: Hemoglobin is low. Getting Epogen. T sat only 8. Getting IV iron. (4) Diabetes: Code(s): E11.9 - Type 2 diabetes mellitus without complications Status: Acute Assessment and Plan: On Accu-Cheks and sliding-scale insulin (5) Congestive heart failure: Onset Date: ~12/2019 Qualifiers: Heart failure type: combined systolic and diastolic Heart failure chronicity: acute on chronic Qualified Code(s): I50.43 - Acute on chronic combined systolic (congestive) and diastolic (congestive) heart failure Code(s): I50.9 - Heart failure, unspecified Status: Acute Assessment and Plan: Heart failure. Her ejection fraction is only 25-30% on the last echo. She has moderate mitral regurgitation, moderate aortic stenosis, and moderate to severe tricuspid regurgitation with moderate pulmonary hypertension. Will try to keep as much fluid off as possible.. Dry ultrafiltration tomorrow. (6) Essential hypertension: Code(s): I10 - Essential (primary) hypertension Status: Acute Assessment and Plan: Her blood pressure is well controlled Subjective Date/time seen: 05/19/20 10:53 Interval history: Matrha is constipated and has hemorrhoidal discomfort. No shortness of breath. Review of Systems Cardiovascular: Cardiovascular: Reports no additional cardiovascular complaints Respiratory: Respiratory: Reports no additional respiratory complaints Gastrointestinal: Gastrointestinal: Reports no additional gastrointestinal complaints Genitourinary: Genitourinary: Reports no additional female genitourinary complaints Exam Narrative: Exam Narrative: WDWN in NAD skin no rash or subcu nodules head ncat lungs clear cor reg no rub abd BS+ nontender and soft ext no edema. Objective Data Vital Signs Vital Signs: Vital Signs - 24 hr 05/18/20 10:56 05/18/20 11:00 05/18/20 11:14 Temperature Pulse Rate 83 80 83 Respiratory Rate Blood Pressure 101/52 L 96/50 L 111/56 L Pulse Oximetry 05/18/20 11:20 05/18/20 11:30 05/18/20 11:45 Temperature Pulse Rate 81 80 83 Respiratory Rate Blood Pressure 110/54 L 96/50 L 101/51 L Pulse Oximetry 05/18/20 12:00 05/18/20 12:13 05/18/20 12:20 Temperature 36.6 C Pulse Rate 80 81 81 Respiratory Rate 16 Blood Pressure 105/47 L 93/48 L 110/53 L Pulse Oximetry 05/18/20 14:00 05/18/20 22:00 05/19/20 06:00 Temperature 36.4 C L 37.0 C 36.7 C Pulse Rate 81 96 84 Respiratory Rate 18 20 20 Blood Pressure 125/54 L 104/46 L 107/47 L Pulse Oximetry 93 97 98 05/19/20 08:14 Temperature Pulse Rate Respiratory Rate Blood Pressure Pulse Oximetry 96 Intake/Output Intake/Output: Intake & Output 05/16/20 05/17/20 05/18/20 05/19/20 23:59 23:59 23:59 23:59 Intake Total 450 1000 340 Output Total 3200 0 1500 Balance -3200 450 -500 340 M
[2020-05-19 13:03] LABS: Glucose Point of Care 195 (65-105)
[2020-05-19 14:00] VITALS: BP 115/60; PULSE 96; RESP 18; TEMP 36.7; O2SAT 100
--- NOTE | 2020-05-19 14:20 | PM.IMPN ---
Progress Note: A&P Assessment and Plan (1) Acute respiratory failure with hypoxia: Code(s): J96.01 - Acute respiratory failure with hypoxia Status: Acute Assessment and Plan: The patient is currently on her home oxygen level at 2 L per nasal cannula. The patient's chest x-ray did show some pulmonary edema. Moderate size pleural effusions without significant change again today but but only 1500 removed at dialysis 05/18 . 3200 mL removed with dialysis here 05/16. The patient stated that she is not sob today. The patient is chronically on 2 L per nasal cannula. She was tested for covid 19 again and returned negative again. Patient has no fever chills. . Hopefully the moderate-sized pleural effusion will improve without thoracentesis(which she had last visit and was a transudate) (2) Suspected COVID-19 virus infection: Code(s): Z20.828 - Contact with and (suspected) exposure to other viral communicable diseases Status: Acute Assessment and Plan: Patient has been checked approximately 1 week ago was found to be negative and repeat again negative (3) Chronic renal failure: Code(s): N18.9 - Chronic kidney disease, unspecified Status: Acute Assessment and Plan: Resumed her Wednesday schedule extra session 05/20 for ultrafiltration to remove more fluid and nephrology may schedule her for 4 sessions per week (4) Diabetes: Code(s): E11.9 - Type 2 diabetes mellitus without complications Status: Acute Assessment and Plan: Continue with Accu-Cheks AC and HS. Continue with her Lantus. (5) Elevated troponin: Code(s): R79.89 - Other specified abnormal findings of blood chemistry Status: Acute Assessment and Plan: Most likely due to her chronic renal failure. She is chronically elevated. Her numbers are starting to trend down now. She is at her baseline at this time. No complaints of chest pain. And no further evaluation. No ischemia (6) Chronic systolic heart failure: Code(s): I50.22 - Chronic systolic (congestive) heart failure Status: Acute Assessment and Plan: Patient's ejection fraction is approximately 25% with last echo Continue with her lisinopril and isosorbide and her Bumex. pressure too low to add beta mamie (7) Hyperlipidemia LDL goal <70: Code(s): E78.5 - Hyperlipidemia, unspecified Status: Acute Assessment and Plan: Continue with atorvastatin. (8) Anemia: Code(s): D64.9 - Anemia, unspecified Status: Acute Assessment and Plan: hgb 7.9 today, anemia of chronic disease. Fe and epogen per nephrology Subjective Date/time seen: 05/19/20 14:20 Interval history: Date of visit 05/19. 70-year-old hypertensive type 2 diabetic with known systolic heart failure, chronic renal failure on dialysis who was discharged from the hospital 05/14 and now readmitted with increasing shortness breath which she developed at dialysis. Denies any chest pain. Had 3200 mL removed 05/16 at dialysis here and is feeling better Attempted to remove another 3-4 liters 05/18 but unable to due to hypotension. Only complaint today is constipation, no sob Exam Narrative: Exam Narrative: Blood pressure 108/50 pulse is 84 sat 96% on 2 L nasal cannula afebrile Pupils equal reactive to light sclera anicteric Lungs clear with faint crackle left posterior base still CV faint systolic murmur regular Abdomen is soft nontender Extremities without edema distal pulses 1+ Neuro alert but oriented to person place Objective Data Vital Signs Vital Signs: Vital Signs - 24 hr 05/18/20 22:00 05/19/20 06:00 05/19/20 08:14 Temperature 37.0 C 36.7 C Pulse Rate 96 84 Respiratory Rate 20 20 Blood Pressure 104/46 L 107/47 L Pulse Oximetry 97 98 96 Intake/Output Intake/Output: Intake & Output 05/16/20 05/17/20 05/18/20 05/19/20 23:59 23:59 23:59 23:59 Intake Total 450 1000 340 Output
[2020-05-19 17:04] LABS: Glucose Point of Care 199 (65-105)
[2020-05-19] MEDS: TRAZODONE HCL 50 MG TABLET PO (20:11)
[2020-05-19] MEDS: MELATONIN 3 MG TABLET PO (20:12)
[2020-05-19 21:10] LABS: Glucose Point of Care 249 (65-105)
[2020-05-19 21:15] VITALS: PULSE 95; O2SAT 93
[2020-05-19 22:00] VITALS: BP 110/82; PULSE 81; RESP 20; TEMP 36.8; O2SAT 95
[2020-05-20] VITALS (21 sets, daily range): BP systolic 66–120; BP diastolic 30–90; PULSE 74–90; RESP 18–20; TEMP 36.2–37.1; O2SAT 93–100
[2020-05-20 05:38] LABS: Basophils Percent Auto 0.2 % (0.2-1.2); Eosinophils Absolute Auto 0.1 K/mm3 (0-0.3); Eosinophils Percent Auto 0.9 % (0-4.4); Hematocrit 27.4 % (37.0-47.0); Hemoglobin 7.9 g/dL (12.0-15.0); Immature Granulocyte Absolute 0.06 K/mm3 (0.00-0.031); Immature Granulocyte Percent A 0.6 % (0-0.5); Lymphocytes Absolute Auto 1.85 K/mm3 (0.9-3.2); Lymphocytes Percent Auto 17.5 % (18.3-44.2); Mean Corpuscular HGB Conc 28.8 g/dl (32-36); Mean Corpuscular Volume 100.7 fl (80-100); Mean Platelet Volume 11.3 fl (7.4-10.4); Monocytes Absolute Auto 0.7 K/mm3 (0.1-0.6); Neutrophils Absolute Auto 7.8 K/mm3 (1.3-6.7); Neutrophils Percent Auto 73.8 % (45.5-73.1); Nucleated Red Blood Cells Perc 0.3 % (0.0-0.2); Platelet Count Result 270 k/mm3 (150-375); Red Blood Count 2.72 M/mm3 (4.2-5.4); Red Cell Distribution Width 17.7 % (11.5-14.5); White Blood Count 10.6 K/mm3 (4.5-10.0)
[2020-05-20 05:47] LABS: Lactic Acid 0.9 mmol/L (0.7-2.1)
[2020-05-20 05:57] LABS: Albumin Level 3.1 g/dL (3.5-5.1); Blood Urea Nitrogen 46 mg/dL (7-17); Calcium 7.6 mg/dL (8.4-10.2); Carbon Dioxide 31 mmol/L (22-30); Chloride 97 mmol/L (98-107); Estimated CRCL calculation 11 ml/min; Estimated Glomerular Filt Rate 11; Glucose 139 mg/dL (65-105); Magnesium 1.9 mg/dL (1.6-2.3); Phosphorus 3.4 mg/dL (2.5-4.5); Potassium 4.4 mmol/L (3.4-5.0); Sodium 134 mmol/L (137-145)
[2020-05-20 06:25] LABS: Platelet Estimate Adequate (Adequate)
[2020-05-20 06:26] LABS: Hypochromasia 3+ (NORMAL); Ovalocytes 1+ (NORMAL); Stomatocytes 1+ (NORMAL)
[2020-05-20 08:04] LABS: Glucose Point of Care 129 (65-105)
[2020-05-20] MEDS: INSULIN GLARGINE (*BKC) 100 UNITS/ML SUB-Q (08:19)
[2020-05-20] MEDS: MIDODRINE HCL 10 MG TABLET PO ×3 (08:30→17:01)
--- NOTE | 2020-05-20 09:45 | PM.PNNEP ---
Progress Note: A&P Assessment and Plan (1) End stage renal disease: Code(s): N18.6 - End stage renal disease Status: Chronic Assessment and Plan: HD tomorrow and continue T/T/S schedule follow electrolytes, volume status, and clearance fluid removal as tolerated by hemodynamics (2) Acute respiratory failure: Qualifiers: Respiratory failure complication: unspecified whether with hypoxia or hypercapnia Qualified Code(s): J96.00 - Acute respiratory failure, unspecified whether with hypoxia or hypercapnia Code(s): J96.00 - Acute respiratory failure, unspecified whether with hypoxia or hypercapnia Status: Acute Assessment and Plan: mainly due to her COPD and volume overload continue fluid removal with dialysis but hypotension limits fluid removal DUF today for further fluid removal follow respiratory status (3) Congestive heart failure: Onset Date: ~12/2019 Qualifiers: Heart failure type: combined systolic and diastolic Heart failure chronicity: acute on chronic Qualified Code(s): I50.43 - Acute on chronic combined systolic (congestive) and diastolic (congestive) heart failure Code(s): I50.9 - Heart failure, unspecified Status: Acute Assessment and Plan: EF by last echo ~ 25-30% further complicated by moderate mitral regurgitation, moderate aortic stenosis, and moderate to severe tricuspid regurgitation with moderate pulmonary hypertension continue fluid removal as tolerated in an effort to acheive euvolemia (4) Anemia: Code(s): D64.9 - Anemia, unspecified Status: Acute Assessment and Plan: due to ESRD and iron deficiency Epogen and venofer with dialysis follow trend of H/H (5) Essential hypertension: Code(s): I10 - Essential (primary) hypertension Status: Acute Assessment and Plan: well controlled follow hemodynamics (6) Diabetes: Code(s): E11.9 - Type 2 diabetes mellitus without complications Status: Acute Assessment and Plan: follow accuchecks on SSI Will continue to follow. Subjective Date/time seen: 05/20/20 09:45 Tolerated dry ultrafiltration (DUF) at the time of my visit (seen on DUF at ~ 9:30AM); major complaint is her bowels but unclear if she is referring to diarrhea or constipation; no apparent distress noted; no issues or events overnight or earlier this AM. Exam Narrative: Exam Narrative: General: WD/WN female in NAD Heart: normal S1 and S2; no rub Lungs: clear to auscultation Abdomen: soft, nontender, nondistended, positive bowel sounds Extremities: no cyanosis or clubbing; no edema Skin: warm and dry Objective Data Vital Signs Vital Signs: Vital Signs Temp Pulse Resp BP Pulse Ox 05/20/20 11:03 77 115/55 L 05/20/20 10:45 79 99/55 L 05/20/20 10:30 75 102/43 L 05/20/20 10:15 77 109/53 L 05/20/20 10:00 89 114/49 L 05/20/20 09:30 89 109/58 L 05/20/20 09:15 81 91/45 L 05/20/20 09:00 90 109/53 L 05/20/20 08:46 81 107/54 L 05/20/20 08:33 93 05/20/20 08:27 36.3 C L 86 20 120/60 05/20/20 06:00 36.3 C L 80 18 101/54 L 99 05/19/20 22:00 36.8 C 81 20 110/82 95 05/19/20 21:15 95 93 05/19/20 14:00 36.7 C 96 18 115/60 100 Intake/Output Intake/Output: Intake & Output 05/17/20 05/18/20 05/19/20 05/20/20 23:59 23:59 23:59 23:59 Intake Total 450 1000 990 230 Output Total 0 1500 Balance 450 -500 990 230 Meds/Results Medications: Active Medications Generic Name Dose Route Start Last Admin Trade Name Freq PRN Reason Stop Dose Admin Acetaminophen 650 mg 05/16/20 15:30 05/19/20 20:11 Tylenol Tablet PO 650 mg Q4H PRN Administration Pain Or Fever Albuterol 5 mg 05/17/20 17:26 Albuterol Sulf Neb 2.5mg/0.5ml INHALATION Q4HRT PRN Shortness Of Breath Aspirin 325 mg 05/17/20 08:00 05/19/20 08
[2020-05-20] MEDS: SODIUM CHLORIDE 0.9% IV 1,000 ML 999 ML (10:12)
[2020-05-20] MEDS: FAMOTIDINE 20 MG TABLET PO ×2 (12:21→20:02)
[2020-05-20] MEDS: ATORVASTATIN 20 MG TABLET PO (12:21)
[2020-05-20] MEDS: CALCIUM ACETATE 667 MG TABLET PO ×2 (12:21→17:01)
[2020-05-20] MEDS: lisinopriL 5 MG TABLET PO ×2 (12:21→20:42)
[2020-05-20] MEDS: BUMETANIDE 1 MG TABLET PO ×2 (12:21→17:01)
[2020-05-20] MEDS: DOCUSATE SODIUM 100 MG CAPSULE PO ×2 (12:22→20:41)
[2020-05-20] MEDS: ISOSORBIDE MONONITRATE 30 MG TAB.ER.24H PO (12:22)
[2020-05-20] MEDS: ASPIRIN 325 MG TABLET PO (12:22)
[2020-05-20 12:23] LABS: Glucose Point of Care 151 (65-105)
[2020-05-20] MEDS: IRON SUCROSE COMPLEX 100 MG/5 ML VIAL IV PUSH (12:26)
[2020-05-20] MEDS: BISACODYL 5 MG TABLET EC PO (12:27)
[2020-05-20] MEDS: polyethylene glycoL 3350 17 GM POWD.PACK PO ×2 (12:27→17:01)
--- NOTE | 2020-05-20 16:04 | PM.IMPN ---
Progress Note: A&P Assessment and Plan (1) Acute respiratory failure with hypoxia: Code(s): J96.01 - Acute respiratory failure with hypoxia Status: Acute Assessment and Plan: The patient is currently on her home oxygen level at 2 L per nasal cannula. The patient's chest x-ray did show some pulmonary edema. Moderate size pleural effusions without significant change again 05/19 but but only 1500 removed at dialysis 05/18 . 3200 mL removed with dialysis here 05/16. The patient stated that she is not sob today. The patient is chronically on 2 L per nasal cannula. She was tested for covid 19 again and returned negative again. Patient has no fever chills. . Hopefully the moderate-sized pleural effusion will improve without thoracentesis(which she had last visit and was a transudate) Ultrafiltered today with 1500 removed and probable full dialysis again 05/21 Nephrology may go to 4 times per week dialysis for her to control fluid (2) Suspected COVID-19 virus infection: Code(s): Z20.828 - Contact with and (suspected) exposure to other viral communicable diseases Status: Acute Assessment and Plan: Patient has been checked approximately 1 week ago was found to be negative and repeat again negative (3) Chronic renal failure: Code(s): N18.9 - Chronic kidney disease, unspecified Status: Acute Assessment and Plan: Resumed her Wednesday schedule extra session today 05/20 for ultrafiltration to remove more fluid and nephrology may schedule her for 4 sessions per week (4) Diabetes: Code(s): E11.9 - Type 2 diabetes mellitus without complications Status: Acute Assessment and Plan: Continue with Accu-Cheks AC and HS. Continue with her Lantus. (5) Elevated troponin: Code(s): R79.89 - Other specified abnormal findings of blood chemistry Status: Acute Assessment and Plan: Most likely due to her chronic renal failure. She is chronically elevated. Her numbers are starting to trend down now. She is at her baseline at this time. No complaints of chest pain. And no further evaluation. No ischemia (6) Chronic systolic heart failure: Code(s): I50.22 - Chronic systolic (congestive) heart failure Status: Acute Assessment and Plan: Patient's ejection fraction is approximately 25% with last echo Continue with her lisinopril and isosorbide and her Bumex. pressure too low to add beta mamie (7) Hyperlipidemia LDL goal <70: Code(s): E78.5 - Hyperlipidemia, unspecified Status: Acute Assessment and Plan: Continue with atorvastatin. (8) Anemia: Code(s): D64.9 - Anemia, unspecified Status: Acute Assessment and Plan: hgb 7.9 again today, anemia of chronic disease. Fe and epogen per nephrology Subjective Date/time seen: 05/20/20 16:04 Interval history: Date of visit 05/20. 70-year-old hypertensive type 2 diabetic with known systolic heart failure, chronic renal failure on dialysis who was discharged from the hospital 05/14 and now readmitted with increasing shortness breath which she developed at dialysis. Denies any chest pain. Had 3200 mL removed 05/16 at dialysis here and is feeling better Attempted to remove another 3-4 liters 05/18 but unable to due to hypotension. only 1500 and another 1500 today Only complaint today is constipation, but nurse report bm 05/19 Exam Narrative: Exam Narrative: Blood pressure 114/46 pulse is 76 sat 96% on 2 L nasal cannula afebrile Pupils equal reactive to light sclera anicteric Lungs clear with faint crackle left posterior base still CV faint systolic murmur regular Abdomen is soft nontender Extremities without edema distal pulses 1+ Neuro alert but oriented to person place Objective Data Vital Signs Vital Signs: Vital Signs - 24 hr 05/19/20 21:15 05/19/20 22:00 05/20/20 06:00 Temperature 36.8 C 36.3 C L Pulse Rate 95 81 80 Respiratory Rate 20
[2020-05-20 17:16] LABS: Glucose Point of Care 162 (65-105)
[2020-05-20] MEDS: HYDROCORTISONE ACETATE 25 MG SUPPOSITORY RECTAL (20:41)
[2020-05-20] MEDS: TRAZODONE HCL 50 MG TABLET PO (20:41)
[2020-05-20] MEDS: SODIUM CHLORIDE 0.9% IV 500 ML 999 ML IV CONT (21:47)
[2020-05-20 21:54] LABS: Glucose Point of Care 128 (65-105)
[2020-05-21] VITALS (19 sets, daily range): BP systolic 90–128; BP diastolic 39–61; PULSE 78–94; RESP 16–20; TEMP 36.5–37; O2SAT 98–100
[2020-05-21] MEDS: HYDROCORTISONE ACETATE 25 MG SUPPOSITORY RECTAL (07:45)
[2020-05-21] MEDS: MIDODRINE HCL 10 MG TABLET PO ×3 (07:50→17:24)
[2020-05-21] MEDS: CALCIUM ACETATE 667 MG TABLET PO ×3 (07:50→17:29)
[2020-05-21] MEDS: polyethylene glycoL 3350 17 GM POWD.PACK PO ×2 (07:50→17:26)
[2020-05-21] MEDS: IRON SUCROSE COMPLEX 100 MG/5 ML VIAL IV PUSH (07:52)
[2020-05-21] MEDS: INSULIN GLARGINE (*BKC) 100 UNITS/ML SUB-Q (07:55)
[2020-05-21 08:11] LABS: Glucose Point of Care 98 (65-105)
--- NOTE | 2020-05-21 09:19 | PCOTNOTE ---
OT evaluation attempted. Patient in dialysis. Will attempt OT evaluation at later time
--- NOTE | 2020-05-21 09:39 | PCPTNOTE ---
Attempted PT evaluation. Pt in dialysis, will attempt again at a later time.
[2020-05-21] MEDS: HEPARIN SODIUM 1,000 UNITS/ML VIAL 1000 UNITS IV PUSH (09:41)
[2020-05-21] MEDS: HEPARIN SODIUM 1,000 UNITS/ML VIAL 500 UNITS IV PUSH ×2 (09:44→10:44)
--- NOTE | 2020-05-21 09:45 | PM.PNNEP ---
Progress Note: A&P Assessment and Plan (1) End stage renal disease: Code(s): N18.6 - End stage renal disease Status: Chronic Assessment and Plan: HD today and continue T/T/S schedule follow electrolytes, volume status, and clearance fluid removal as tolerated by hemodynamics (2) Acute respiratory failure: Qualifiers: Respiratory failure complication: unspecified whether with hypoxia or hypercapnia Qualified Code(s): J96.00 - Acute respiratory failure, unspecified whether with hypoxia or hypercapnia Code(s): J96.00 - Acute respiratory failure, unspecified whether with hypoxia or hypercapnia Status: Acute Assessment and Plan: mainly due to her COPD and volume overload continue fluid removal with dialysis but hypotension limits fluid removal DUF today for further fluid removal follow respiratory status (3) Congestive heart failure: Onset Date: ~12/2019 Qualifiers: Heart failure chronicity: acute on chronic Heart failure type: combined systolic and diastolic Qualified Code(s): I50.43 - Acute on chronic combined systolic (congestive) and diastolic (congestive) heart failure Code(s): I50.9 - Heart failure, unspecified Status: Acute Assessment and Plan: EF by last echo ~ 25-30% further complicated by moderate mitral regurgitation, moderate aortic stenosis, and moderate to severe tricuspid regurgitation with moderate pulmonary hypertension continue fluid removal as tolerated in an effort to acheive euvolemia (4) Anemia: Code(s): D64.9 - Anemia, unspecified Status: Acute Assessment and Plan: due to ESRD and iron deficiency Epogen and venofer with dialysis follow trend of H/H (5) Essential hypertension: Code(s): I10 - Essential (primary) hypertension Status: Acute Assessment and Plan: well controlled follow hemodynamics on midodrine for relative hypotension (6) Diabetes: Code(s): E11.9 - Type 2 diabetes mellitus without complications Status: Acute Assessment and Plan: follow accuchecks on SSI Will continue to follow. Subjective Date/time seen: 05/21/20 09:45 Tolerated DUF treatment yesterday and is tolerating HD treatment at this time (seen on HD at 9:30AM); no acute distress voiced; breathing/respiratory status seems stable; no apparent distress noted. Exam Narrative: Exam Narrative: General: WD/WN female in NAD Heart: normal S1 and S2; no rub Lungs: decreased at bases Abdomen: soft, nontender, nondistended, positive bowel sounds Extremities: no cyanosis or clubbing; no edema Skin: warm and intact Objective Data Vital Signs Vital Signs: Vital Signs Temp Pulse Resp BP Pulse Ox 05/21/20 05:20 36.5 C 81 16 99/39 L 100 05/20/20 22:15 110/64 05/20/20 21:15 37.1 C 82 20 66/30 L 98 05/20/20 19:11 96 05/20/20 14:00 36.2 C L 76 18 118/42 L 100 05/20/20 12:10 36.4 C 77 18 113/46 L 05/20/20 11:48 90 110/90 05/20/20 11:33 74 109/51 L 05/20/20 11:15 75 114/54 L 05/20/20 11:03 77 115/55 L 05/20/20 10:45 79 99/55 L 05/20/20 10:30 75 102/43 L 05/20/20 10:15 77 109/53 L 05/20/20 10:00 89 114/49 L Intake/Output Intake/Output: Intake & Output 05/18/20 05/19/20 05/20/20 05/21/20 23:59 23:59 23:59 23:59 Intake Total 6906 264 7044 50 Output Total 1500 0 Balance -603 674 6940 50 Meds/Results Medications: Active Medications Generic Name Dose Route Start Last Admin Trade Name Freq PRN Reason Stop Dose Admin Acetaminophen 650 mg 05/16/20 15:30 05/19/20 20:11 Tylenol Tablet PO 650 mg Q4H PRN Administration Pain Or Fever Albuterol 5 mg 05/17/20 17:26 Albuterol Sulf Neb 2.5mg/0.5ml INHALATION Q4HRT PRN Shortness Of Breath Aspirin 325 mg 05/17/20 08:00 05/20/20 12:22 Aspirin PO 325 mg DAILY@0800 COUNT INCLUDES THE [facility] Adminis
[2020-05-21 10:26] LABS: Hematocrit 26.5 % (37.0-47.0); Hemoglobin 7.6 g/dL (12.0-15.0); Mean Corpuscular HGB Conc 28.7 g/dl (32-36); Mean Corpuscular Volume 101.1 fl (80-100); Mean Platelet Volume 11.4 fl (7.4-10.4); Platelet Count Result 282 k/mm3 (150-375); Red Blood Count 2.62 M/mm3 (4.2-5.4); Red Cell Distribution Width 17.5 % (11.5-14.5); White Blood Count 9.8 K/mm3 (4.5-10.0)
[2020-05-21 10:42] LABS: Blood Urea Nitrogen 51 mg/dL (7-17); Calcium 7.7 mg/dL (8.4-10.2); Carbon Dioxide 29 mmol/L (22-30); Chloride 97 mmol/L (98-107); Estimated CRCL calculation 10 ml/min; Estimated Glomerular Filt Rate 10; Glucose 133 mg/dL (65-105); Magnesium 1.9 mg/dL (1.6-2.3); Potassium 4.3 mmol/L (3.4-5.0); Sodium 134 mmol/L (137-145)
[2020-05-21 10:43] LABS: Lactic Acid 0.5 mmol/L (0.7-2.1)
--- NOTE | 2020-05-21 11:50 | PM.IMPN ---
Progress Note: A&P Assessment and Plan (1) Acute respiratory failure with hypoxia: Code(s): J96.01 - Acute respiratory failure with hypoxia Status: Acute Assessment and Plan: The patient is currently on her home oxygen level at 2 L per nasal cannula. The patient's chest x-ray did show pulmonary edema. Moderate size pleural effusions without significant change again 05/19 but only 1500 removed at dialysis 05/18 . 3200 mL removed with dialysis here 05/16. Hopefully the moderate-sized pleural effusion will improve without thoracentesis(which she had last visit and was a transudate) . Symptoms most likely related to CHF. May be having difficulty balancing given her valvular disease and low EF. Continue dialysis to improve fluid status. (2) Suspected COVID-19 virus infection: Code(s): Z20.828 - Contact with and (suspected) exposure to other viral communicable diseases Status: Acute Assessment and Plan: Patient has been checked approximately 1 week ago was found to be negative and repeat again negative . Okay to remove isolation. (3) End stage renal disease: Code(s): N18.6 - End stage renal disease Status: Chronic Assessment and Plan: Patient had extra hemodialysis 05/20 and now resumed on her Wednesday schedule. continue frequent dialysis to control fluid status. (4) Diabetes: Code(s): E11.9 - Type 2 diabetes mellitus without complications Status: Acute Assessment and Plan: Recent A1c of 8.2. Glucose reviewed on 05/21/2020 and in reasonably good control. Continue with Accu-Cheks AC and HS. Continue with her Lantus. (5) Elevated troponin: Code(s): R79.89 - Other specified abnormal findings of blood chemistry Status: Acute Assessment and Plan: Trop 0.10 on admission and mostly flat. Likely due to her chronic renal failure. She has chronically elevated Troponins. No complaints of chest pain. No ischemic changes by EKG . Continue to follow. (6) Congestive heart failure: Onset Date: ~12/2019 Qualifiers: Heart failure chronicity: acute on chronic Heart failure type: combined systolic and diastolic Qualified Code(s): I50.43 - Acute on chronic combined systolic (congestive) and diastolic (congestive) heart failure Code(s): I50.9 - Heart failure, unspecified Status: Acute Assessment and Plan: Probably acute CHF given the chest x-ray showing pulmonary edema and elevated BNP of greater than 35,000. Patient's ejection fraction is approximately 25% with diastolic dysfunction by last echo on April 30. Continue with her lisinopril, isosorbide and her Bumex. Blood pressure too low to add beta mamie. Continue to use hemodialysis to control fluid status. (7) Hyperlipidemia LDL goal <70: Code(s): E78.5 - Hyperlipidemia, unspecified Status: Acute Assessment and Plan: Stable. Continue with atorvastatin. (8) Anemia: Code(s): D64.9 - Anemia, unspecified Status: Acute Assessment and Plan: Patient with anemia of chronic disease related to her renal failure. hemoglobin normally runs in the 7-8 range. Hemoglobin at baseline. IV iron and Epogen has been started per Nephrology. Continue to monitor and transfuse as needed. Subjective Date/time seen: 05/21/20 11:50 Interval history: Date of visit 05/21. 70yo patient with HTN, DM, known systolic heart failure, and ESRDl who was discharged from the hospital 05/14 and now readmitted with increasing shortness breath which she developed at dialysis. Had 3L removed yesterday and currently in HD now. She did have HoTN overnight requiring a 500ml bolus with improvement in her BP. She denies CP. No abd pain. SLept poorly. No n/v. Eating okay. Complains of hemorrhoid pain. No bowel movement past 2 days per patient (but 1 documented today). Exam Narrative: Exam Narrative: AF 90/39
[2020-05-21] MEDS: EPOETIN ALFA 10,000 UNITS/ML VIAL 20000 UNITS IV PUSH (11:59)
[2020-05-21] MEDS: DOCUSATE SODIUM 100 MG CAPSULE PO (13:28)
[2020-05-21] MEDS: ISOSORBIDE MONONITRATE 30 MG TAB.ER.24H PO (13:28)
[2020-05-21] MEDS: BUMETANIDE 1 MG TABLET PO ×2 (13:29→17:29)
[2020-05-21] MEDS: FAMOTIDINE 20 MG TABLET PO (13:29)
[2020-05-21] MEDS: ASPIRIN 325 MG TABLET PO (13:29)
[2020-05-21] MEDS: WITCH HAZEL 40 PADS 1 PAD TOPICAL (13:29)
[2020-05-21] MEDS: ATORVASTATIN 20 MG TABLET PO (13:29)
--- NOTE | 2020-05-21 13:47 | WPDCDIQUERY2 ---
CDI Query Clarification Request - Dr Zarate and Hannah have documented acute on chronic systolic and diastolic CHF and will try to keep as much fluid off as possible . - BNP >35,000 - The patient's CXR did show some pulmonary edema documented by Dr Snider - Chronic systolic CHF documented by hospitalists Please clarify if acute CHF has been ruled in or ruled out. <Leslie Maradiaga RN - Last Filed: 05/21/20 14:04>
[2020-05-21 13:53] LABS: Glucose Point of Care 88 (65-105)
[2020-05-21] MEDS: ACETAMINOPHEN 325 MG TABLET 650 MG PO (14:57)
[2020-05-21 17:24] LABS: Glucose Point of Care 211 (65-105)
[2020-05-21] MEDS: INSULIN ASPART (*BKC) 100 UNITS/ML SUB-Q (17:25)
--- NOTE | 2020-05-22 03:24 | PCRCNOTE ---
Spoke to Carl Ritter RN, will hold ABG at this time. ICU order not DC'd.
[2020-05-22 06:00] VITALS: BP 104/45; PULSE 79; RESP 20; TEMP 36.3; O2SAT 100
[2020-05-22 08:25] LABS: Glucose Point of Care 114 (65-105)
[2020-05-22] MEDS: HYDROCORTISONE ACETATE 25 MG SUPPOSITORY RECTAL (09:29)
[2020-05-22] MEDS: ASPIRIN 325 MG TABLET PO (11:42)
[2020-05-22] MEDS: ISOSORBIDE MONONITRATE 30 MG TAB.ER.24H PO (11:42)
[2020-05-22] MEDS: BUMETANIDE 1 MG TABLET PO (11:43)
[2020-05-22] MEDS: INSULIN GLARGINE (*BKC) 100 UNITS/ML SUB-Q (11:43)
[2020-05-22] MEDS: FAMOTIDINE 20 MG TABLET PO (11:43)
[2020-05-22] MEDS: ATORVASTATIN 20 MG TABLET PO (11:43)
[2020-05-22] MEDS: CALCIUM ACETATE 667 MG TABLET PO (11:43)
--- NOTE | 2020-05-22 12:31 | PM.DS ---
DS: Admitting Diagnosis Admitting Diagnosis Admitting Diagnosis: Acute respiratory failure with hypoxia DS: Discharge Diagnosis Discharge Diagnosis (1) Acute respiratory failure with hypoxia: Code(s): J96.01 - Acute respiratory failure with hypoxia Status: Acute Assessment and Plan: The patient was on non-rebreather mask on admission but able to be weaned to 2L per nasal cannula. The patient's chest x-ray did show moderate size pleural effusions without significant change and stable airspace opacities. HD was used to control fluid status. It was felt that the moderate-sized pleural effusion will improve without thoracentesis(which she had last visit and was a transudate). Symptoms most likely related to CHF. May be having difficulty balancing given her valvular disease and low EF. We continued dialysis to improve fluid status. (2) Suspected COVID-19 virus infection: Code(s): Z20.828 - Contact with and (suspected) exposure to other viral communicable diseases Status: Acute Assessment and Plan: Patient has been checked approximately 1 week ago was found to be negative and repeat again negative . Isolation removed. (3) End stage renal disease: Code(s): N18.6 - End stage renal disease Status: Chronic Assessment and Plan: Patient had extra hemodialysis 05/20 and now resumed on her Wednesday schedule. We continued frequent dialysis to control fluid status. (4) Diabetes: Code(s): E11.9 - Type 2 diabetes mellitus without complications Status: Acute Assessment and Plan: Recent A1c of 8.2. Glucose monitored closely and it remained in reasonably good control. We started Accu-Cheks AC and HS. We continued with her Lantus. (5) Elevated troponin: Code(s): R79.89 - Other specified abnormal findings of blood chemistry Status: Acute Assessment and Plan: Trop 0.10 on admission and mostly flat. Likely due to her chronic renal failure. She has chronically elevated Troponins. No complaints of chest pain. No ischemic changes by EKG . (6) Congestive heart failure: Onset Date: ~12/2019 Qualifiers: Heart failure type: combined systolic and diastolic Heart failure chronicity: acute on chronic Qualified Code(s): I50.43 - Acute on chronic combined systolic (congestive) and diastolic (congestive) heart failure Code(s): I50.9 - Heart failure, unspecified Status: Acute Assessment and Plan: Probably acute CHF given the chest x-ray showing pulmonary edema and elevated BNP of greater than 35,000. Patient's ejection fraction is approximately 25% with diastolic dysfunction by last echo on April 30. Continue with her lisinopril, isosorbide and her Bumex. Blood pressure too low to add beta mamie. Continue to use hemodialysis to control fluid status. (7) Hyperlipidemia LDL goal <70: Code(s): E78.5 - Hyperlipidemia, unspecified Status: Acute Assessment and Plan: Stable. We continued with atorvastatin. (8) Anemia: Code(s): D64.9 - Anemia, unspecified Status: Acute Assessment and Plan: Patient with anemia of chronic disease related to her renal failure. hemoglobin normally runs in the 7-8 range. Hemoglobin at baseline. IV iron and Epogen was started per Nephrology. DS: Summary Hospital Course Reason for hospitalization: 70yo female with ESRD here for shortness of breath. Please see H&P for details. Hospital Course: As above Time Spent with Patient Time attestation: Total time spent providing and/or coordinating discharge services: 34 minutes Time spent: Greater than 30 minutes Specific discharge activities: Discussed with Nephrology Exam Narrative: Exam Narrative: AF 104/45 79 Gen - NARD Chest - CTA bilaterally CV -regular rate and rhythm. S1-S2. 2/6 systolic murmur loudest in the upper sternal border Abd -soft. Non dist
[2020-05-22 12:41] LABS: Glucose Point of Care 142 (65-105)
[2020-05-22 14:00] VITALS: BP 108/55; PULSE 94; RESP 18; TEMP 36.8; O2SAT 100
[2020-05-22] MEDS: MIDODRINE HCL 10 MG TABLET PO (14:30)
[2020-05-22] MEDS: IRON SUCROSE COMPLEX 100 MG/5 ML VIAL IV PUSH (14:30)
== END 2020-05-22 17:25 | DRG 291 ==
LOC: ANHED 09:18 → ANHICU 10:15 → ANH3MEDSUR 05-17 16:16
PROVIDERS: Internal Medicine; Internal Medicine Nephrology; Admitting Provider Family Medicine; Emergency Provider Emergency Medicine; PCP Internal Medicine; Visit Provider Internal Medicine
DX: I13.2 Hypertensive heart and chronic kidney disease with heart failure and with stage 5 chronic kidney disease, or end stage renal disease (principal); J96.01 Acute respiratory failure with hypoxia; N18.6 End stage renal disease; I50.43 Acute on chronic combined systolic (congestive) and diastolic (congestive) heart failure; I27.20 Pulmonary hypertension, unspecified; D63.1 Anemia in chronic kidney disease; E11.22 Type 2 diabetes mellitus with diabetic chronic kidney disease; Z20.828 Contact with and (suspected) exposure to other viral communicable diseases; I08.3 Combined rheumatic disorders of mitral, aortic and tricuspid valves; R79.89 Other specified abnormal findings of blood chemistry; D72.829 Elevated white blood cell count, unspecified; I25.10 Atherosclerotic heart disease of native coronary artery without angina pectoris; J44.9 Chronic obstructive pulmonary disease, unspecified; I25.5 Ischemic cardiomyopathy; E78.2 Mixed hyperlipidemia; Z99.2 Dependence on renal dialysis; Z79.4 Long term (current) use of insulin; Z79.82 Long term (current) use of aspirin; Z86.73 Personal history of transient ischemic attack (TIA), and cerebral infarction without residual deficits; Z95.1 Presence of aortocoronary bypass graft; Z95.4 Presence of other heart-valve replacement; Z98.41 Cataract extraction status, right eye; Z98.42 Cataract extraction status, left eye
CPT/HCPCS: 36415; 36600; 71045; 74019; 80048; 80053; 80069; 82375; 82805; 83050; 83540; 83550; 83605; 83735; 83880; 84100; 84484; 85025; 85027; 85610; 85730; 87040; 87635; 93005; 94640; 96374; 97161; 97165; 99291; A9270; C9803; G0257; J1644; J1756; J1815; J2930; J7030; J7040; Q4081; U0003

== ENCOUNTER 2020-05-31 02:32 | Inpatient (IN) | payer MEDICARE, MEDICAID, SELFPAY ==
[2020-05-31] VITALS (38 sets, daily range): BP systolic 92–121; BP diastolic 43–71; PULSE 78–98; RESP 14–22; TEMP 35.8–37.2; O2SAT 93–100; BMI 29.2
--- NOTE | ~2020-05-31 | CT_ITS ---
EXAMINATION: CT abdomen pelvis wo con DATE: 05/31/2020 06:18 INDICATION: Abdominal pain and constipation TECHNIQUE: Computed tomography (CT) of the abdomen and pelvis was performed without intravenous contr ast. Automated exposure control and iterative reconstruction technique were employed. The dose-length product was 995.76 mGy-cm. COMPARISON: 05/12/2020 FINDINGS: Small left and moderate right pleural effusions with associated dependent compressive atelectasis. Ca rdiomegaly. Atherosclerotic coronary artery calcification. Dense mitral annular calcification. Median sternotomy wires and changes of prior coronary artery bypass grafting as well as aortic valve replac ement. The gallbladder is not visualized and may be surgically absent. 6 mm rim calcified aneurysm al eav the right hepatic artery. Liver is normal. Spleen is not visualized and also likely surgically ab sent. Pancreas and bilateral adrenal glands are normal. Mild bilateral renal atrophy. 1.5 cm parapelv ic cyst at the upper pole of the right kidney. Changes of prior right hemicolectomy with ileocolic an astomosis in the pelvis. There is an additional small bowel anastomosis in the right abdomen. Large a mount of stool throughout the remaining colon consistent with given history of constipation. There is pelvic floor relaxation. The uterus is not identified and has likely been surgically resected. Bladd er is normal. Infraumbilical midline surgical scar and ventral diastases. No free intraperitoneal gas or fluid. No pathologically enlarged abdominal or pelvic lymphadenopathy. There is calcified atheros clerosis of the aorta and many of the other arteries. Mild diffuse dependent body wall edema. Severe thoracic and mild to moderate lumbar spondylosis. Chronic appearing mild anterior wedging at L2 in t he couple mid thoracic vertebral bodies. IMPRESSION: 1. Status post right hemicolectomy with large amount of stool in the remaining colon consistent with constipation. 2. Small left and moderate right pleural effusions with associated dependent atelectasis. 3. Cardiomegaly. 4. 6 mm right hepatic artery aneurysm. Reviewed, dictated and finalized at location A. IMPRESSION: 1. Status post right hemicolectomy with large amount of stool in the remaining colon consistent with constipation. 2. Small left and moderate right pleural effusions with associated dependent at electasis. 3. Cardiomegaly. 4. 6 mm right hepatic artery aneurysm.
--- NOTE | ~2020-05-31 | XR_ITS ---
EXAMINATION: XR chest 1V portable DATE: 05/31/2020 03:16 INDICATION: Shortness of breath and abdominal pain TECHNIQUE: frontal view of the chest was obtained. COMPARISON: Chest radiograph dated 05/19/2020 FINDINGS: Opacities in the bilateral lower lung zones consistent with small left and moderate right pleural eff usions with associated basilar atelectasis and/or pneumonia. No pneumothorax. Cardiomegaly with pulmo nary vascular congestion. Median sternotomy wires and mediastinal surgical clips are seen, likely fr om prior coronary artery bypass grafting. Aortic valve repair. Dense mitral annular calcification. IMPRESSION: 1. Small left and moderate right pleural effusions with associated basilar atelectasis and/or pneumon ia. 2. Cardiomegaly. Reviewed, dictated and finalized at location A. IMPRESSION: 1. Small left and moderate right pleural effusions with associated basilar atel ectasis and/or pneumonia. 2. Cardiomegaly.
--- NOTE | 2020-05-31 02:32 | ED.ABDPAIN ---
HPI - Abdominal Pain General Chief Complaint: Abdominal Pain Stated Complaint: abd pain, constipation Source: patient and EMS Mode of arrival: EMS Limitations: no limitations History of Present Illness HPI narrative: Patient is a 70-year-old female with a history of diabetes, heart failure, prior CVA, chronic kidney disease on dialysis who presents for evaluation of abdominal pain. Patient reports abdominal distention, cramping type pain throughout the abdomen. Patient denies fever, chills, cough, she does report some mild shortness of breath. She denies any chest pain currently. Patient states she has been constipated, received a suppository at the care facility this evening, but was unable to have a bowel movement. Denies any diarrhea. Patient denies dysuria or hematuria. She also states that she missed her dialysis session as the nursing staff did not schedule it, though she did not receive dialysis yesterday. Patient denies fever or chills. Related Data Home Medications Medication Instructions Recorded Confirmed bumetanide 1 mg PO BID 05/16/20 05/16/20 melatonin 3 mg PO HS PRN 05/16/20 05/16/20 trazodone 50 mg PO HS 05/16/20 05/16/20 Allergies Allergy/AdvReac Type Severity Reaction Status Date / Time Iodinated Contrast Media Allergy Severe Loss of Verified 05/31/20 03:46 Consciousness Contrast Media Allergy Severe Loss of Uncoded 11/02/19 13:12 Consciousness Review of Systems Review of Systems: Narrative: CONSTITUTIONAL: Denies fever, chills, or sweats. EYES: Denies visual changes, redness, or discharge. ENT: Denies rhinorrhea, congestion, sore throat, or otalgia. CARDIOVASCULAR: Denies chest pain, palpitations, or edema. RESPIRATORY: Denies cough, reports shortness of breath GASTROINTESTINAL: Reports abdominal pain, nausea and constipation GENITOURINARY: Denies dysuria or hematuria. SKIN: Denies rash or itching. MUSCULOSKELETAL: Denies back pain, joint pain, or myalgia. NEUROLOGIC: Denies headache, numbness, or weakness. [facility] Past Medical History Medical History Aortic valve stenosis Echocardiogram in December 2019 showed at least mild bioprosthetic aortic valve stenosis with an aortic valve area of 1.4 centimeter squared. Asthma Cerebrovascular accident (~2013) Following coronary artery bypass grafting in 2013, with mild right hand weakness. Chronic anemia Chronic kidney disease, stage 5 GFR in December 2019 was around 13. She does have right upper extremity fistula as she nears dialysis. Chronic obstructive pulmonary disease Patient is a lifelong nonsmoker, and this diagnosis is poorly documented in her electronic medical records. Congestive heart failure (~12/2019) Echocardiogram was a technically difficult study with limited views. Left ventricular systolic function was mildly reduced with an estimated ejection fraction of 50 to 55%, moderately increased left ventricular wall thickness, left ventricular septal wall motion abnormality related to bundle branch block, and grade 1 diastolic dysfunction. Coronary artery disease Status post three-vessel CABG in 2013 done at [facility]. Diverticulitis Essential hypertension Hyperlipidemia Ischemic cardiomyopathy Patient previously declined ICD went ejection fraction was much lower (recent EF of 50 to 55% on echocardiogram done in December 2019). Left bundle branch block Osteoarthritis Pseudomyxoma peritonei Shoulder fracture, left Surgically constructed arteriovenous fistula Type 2 diabetes mellitus Social History Social History (Updated 05/16/20 @ 15:45 by Ema Emery NP) Social History: The patient is and lives with her in [place]. She retired from [employer]. She is a lifelong nonsmoker and denies alcohol and drug use. Her , Yariel Reid, and he wishes her to be a full code. She has 2 children. Smoking status: Never smoker
--- NOTE | 2020-05-31 02:36 | ECG_ITS ---
Measurements Intervals [place] Rate: 94 P: 50 GA: 207 QRS: -80 QRSD: 167 T: 121 QT: 397 QTc: 497 Interpretive Statements SINUS RHYTHM WITH FIRST DEGREE AV BLOCK LEFT AXIS DEVIATION LEFT BUNDLE BRANCH BLOCK ANTERIOR INFARCT OR DUE TO LBBB BASELINE ARTIFACT- I, AVR, AVL, V5 ABNORMAL ECG Electronically Signed On 05-31-2020 7:32:42 CDT by Simon Malave D.O.
[2020-05-31] MEDS: SODIUM CHLORIDE 0.9% IV 500 ML 999 ML IV CONT (03:01)
[2020-05-31] MEDS: ONDANSETRON INJ 4 MG/2 ML VIAL IV PUSH (03:01)
[2020-05-31] MEDS: MORPHINE SULFATE 4 MG/ML INJ IV PUSH (03:01)
[2020-05-31 03:06] LABS: Basophils Absolute Auto 0.1 K/mm3 (0.0-0.1); Basophils Percent Auto 0.4 % (0.2-1.2); Eosinophils Absolute Auto 0.1 K/mm3 (0-0.3); Eosinophils Percent Auto 0.5 % (0-4.4); Hematocrit 28.1 % (37.0-47.0); Hemoglobin 8.1 g/dL (12.0-15.0); Immature Granulocyte Absolute 0.05 K/mm3 (0.00-0.031); Immature Granulocyte Percent A 0.4 % (0-0.5); Lymphocytes Absolute Auto 1.71 K/mm3 (0.9-3.2); Lymphocytes Percent Auto 14.2 % (18.3-44.2); Mean Corpuscular HGB Conc 28.8 g/dl (32-36); Mean Corpuscular Hemoglobin 29.8 pg (26-34); Mean Corpuscular Volume 103.3 fl (80-100); Mean Platelet Volume 10.5 fl (7.4-10.4); Monocytes Absolute Auto 0.6 K/mm3 (0.1-0.6); Monocytes Percent Auto 4.9 % (2.6-8.5); Neutrophils Absolute Auto 9.6 K/mm3 (1.3-6.7); Neutrophils Percent Auto 79.6 % (45.5-73.1); Nucleated Red Blood Cells Perc 0.2 % (0.0-0.2); Platelet Count Result 271 k/mm3 (150-375); Red Blood Count 2.72 M/mm3 (4.2-5.4); Red Cell Distribution Width 17.7 % (11.5-14.5); White Blood Count 12.1 K/mm3 (4.5-10.0)
[2020-05-31 03:17] LABS: Add Urine Microscopic? YES; Appearance Urine Clear (Clear); Bacteria Urine Trace /hpf; Bilirubin Urine Negative (Negative); Blood Urine 2+ (Negative); Color Urine Yellow (Yellow); Glucose Urine UA 1+ mg/dL (Negative); Ketones Urine Negative (Negative); Leukocyte Esterase Ur 2+ LEU/UL (Negative); Mucus Urine Rare /lpf; Nitrate Urine Negative (Negative); Protein Urine 3+ mg/dL (Negative); RBC Urine 21-50 /hpf (0-2); Specific Grav Ur 1.014 (1.001-1.035); Squamous Epithelial Cell Urine Occasional /hpf (Few); Urobilinogen Urine Negative mg/dL (<2.0); WBC Urine 51-75 /hpf
[2020-05-31 03:20] LABS: Lactic Acid Reflex 0.7 mmol/L (0.7-2.1)
[2020-05-31 03:22] LABS: Ovalocytes 1+ (NORMAL); Platelet Estimate Adequate (Adequate); Stomatocytes 1+ (NORMAL)
[2020-05-31 03:31] LABS: NT Pro B Type Natriuretic Pept > 35000 PG/ML (5-100)
[2020-05-31 04:48] LABS: Alanine Aminotransferase 14 U/L (4-35); Albumin Level 3.4 g/dL (3.5-5.1); Alkaline Phosphatase 160 U/L (38-126); Aspartate Amino Transferase 18 U/L (14-36); Bilirubin,Total 0.2 mg/dL (0.2-1.3); Blood Urea Nitrogen 54 mg/dL (7-17); Calcium 8.2 mg/dL (8.4-10.2); Carbon Dioxide 18 mmol/L (22-30); Chloride 111 mmol/L (98-107); Estimated CRCL calculation 10 ml/min; Estimated Glomerular Filt Rate 10; Glucose 170 mg/dL (65-105); Lipase 278 U/L (23-300); Potassium 4.6 mmol/L (3.4-5.0); Sodium 138 mmol/L (137-145)
[2020-05-31 05:06] LABS: Troponin I 0.075 ng/mL (0.000-0.034)
--- NOTE | 2020-05-31 05:06 | PC.NURSE ---
Geno patient's nurse calls to get update on patient.
--- NOTE | 2020-05-31 06:05 | PC.NURSE ---
Patient taken to CT.
--- NOTE | 2020-05-31 07:09 | PC.NURSE ---
Geno, patient's primary nurse at [facility] calls to get update on patient status. This nurse informs her that the patient is being admitted.
--- NOTE | 2020-05-31 07:53 | PC.NURSE ---
This patient, Martha Reid, was admitted to IMU Room 211-01. Patient/family oriented to hospital policies and general routines including ID bracelet, bed and alarms, visiting hours, pain management, procedures, bathroom and other care routines, personal items, smoking policy, room service/diet, and visiting hours. Valuables list has been completed. Information on how to activate the Rapid Response Team has been discussed. Patient/Family are encouraged to report perceived risks to care and to ask questions if they do not understand what they are told or what they should do.
--- NOTE | 2020-05-31 08:20 | PC.NURSE ---
Patient to dialysis via bed.
[2020-05-31 09:07] LABS: Troponin I 0.069 ng/mL (0.000-0.034)
[2020-05-31 09:11] LABS: Glucose Point of Care 128 (65-105)
[2020-05-31 10:05] LABS: Hepatitis B Surface Antigen Negative (Negative)
[2020-05-31 10:22] LABS: Hepatitis B Surface Anti Res Negative
[2020-05-31] MEDS: EPOETIN ALFA-EPBX 10,000 UNITS/ML VIAL 20000 UNITS IV PUSH (10:52)
--- NOTE | 2020-05-31 11:05 | PM.PNNEP ---
Progress Note: A&P Assessment and Plan (1) End stage renal disease: Code(s): N18.6 - End stage renal disease Status: Chronic Assessment and Plan: HD today since missed treatment yesterday plan HD tomorrow to resume/continue T/T/S outpatient dialysis schedule follow electrolytes, volume status, and clearance (2) Missed dialysis: Status: Acute Assessment and Plan: due to inability to transport patient to HD center from nursing facility apparently, missed treatment was no rescheduled either will need to ensure proper transportation in place after discharge (3) Volume overload: Code(s): E87.70 - Fluid overload, unspecified Status: Acute Assessment and Plan: due to #2 HD today fluid removal as tolerated by hemodynamics soft blood pressure makes ultrafiltration challenging (4) Abdominal pain: Qualifiers: Abdominal location: generalized Qualified Code(s): R10.84 - Generalized abdominal pain Code(s): R10.9 - Unspecified abdominal pain Status: Acute Assessment and Plan: presumably due to constipation and possibly UTI follow symptom with treatment of these issues (5) Constipation: Qualifiers: Constipation type: other constipation type Qualified Code(s): K59.09 - Other constipation Code(s): K59.00 - Constipation, unspecified Status: Acute Assessment and Plan: as noted by history and CT scan on admission started stool softners and miralax will give one time dose of lactulose follow trend (6) Acute UTI: Code(s): N39.0 - Urinary tract infection, site not specified Status: Acute Assessment and Plan: UA suggestive follow WBC and cultures on antibiotics FULL CONSULT TO FOLLOW Subjective Date/time seen: 05/31/20 11:05 Patient tolerating dialysis at the time of my visit (seen on HD at ~ 10:50AM); no apparent distress voiced and did not mention anything about abdominal pain when seen. Exam Narrative: Exam Narrative: General: WD/WN male/female in NAD Heart: normal S1 and S2; no rub Lungs: coarse and decreased at bases Abdomen: soft, nontender, nondistended, positive bowel sounds Extremities: no cyanosis or clubbing; trace edema Skin: warm and dry Objective Data Vital Signs Vital Signs: Vital Signs Temp Pulse Resp BP Pulse Ox 05/31/20 11:00 87 108/50 L 05/31/20 10:45 87 99/46 L 05/31/20 10:30 90 111/55 L 05/31/20 10:15 88 92/53 L 05/31/20 10:00 87 110/53 L 05/31/20 09:45 89 99/53 L 05/31/20 09:30 92 106/53 L 05/31/20 09:21 81 92/48 L 05/31/20 09:00 84 114/52 L 05/31/20 08:52 35.8 C L 87 20 99/48 L 99 05/31/20 08:45 78 112/58 L 05/31/20 08:34 81 108/57 L 05/31/20 08:20 36.7 C 84 16 113/61 05/31/20 07:44 82 18 99/71 L 100 05/31/20 06:22 36.6 C 83 16 106/52 L 99 05/31/20 05:00 80 16 98 05/31/20 04:45 80 15 98 05/31/20 04:31 82 14 94/50 L 97 05/31/20 04:30 82 15 97 05/31/20 04:15 86 15 98 05/31/20 04:00 83 15 97 05/31/20 03:46 87 16 97/57 L 98 05/31/20 03:45 88 17 97 05/31/20 03:36 88 15 97 05/31/20 03:15 84 16 96 05/31/20 03:01 92 120/60 99 05/31/20 03:00 93 99 05/31/20 02:58 94 22 H 99 05/31/20 02:32 37.2 C 97 18 120/61 97 Intake/Output Intake/Output: Intake & Output 05/28/20 05/29/20 05/30/20 05/31/20 23:59 23:59 23:59 23:59 Intake Total 550 Output Total 600 Balance -50 Meds/Results Medications: Active Medications Generic Name Dose Route Start Last Admin Trade Name Freq PRN Reason Stop Dose Admin Acetaminophen 650 mg 05/31/20 05:15 Tylenol Tablet PO Q4H PRN Pain or Fever Albuterol 2.5 mg 05/31/20 08:39 Albuterol Sulf Neb 2.5mg/0.5ml INHALATION Q4H PRN Wheezing Aspirin 325 mg 06/01/20 08:00 Aspirin PO
--- NOTE | 2020-05-31 12:05 | PC.NURSE ---
Patient returned to room following dialysis.
--- NOTE | 2020-05-31 12:24 | PM.IMHP ---
H&P: HPI History of Present Illness Chief complaint: Pulmonary edema, missed dialysis Narrative: Martha Reid is a 70 year old female with , ESRD (TTS HD), CHF, COPD (on 2 L chronically), DMII, among several other comorbid conditions who is well known to the hospitalist service who presented to the ER early on 05/31/20 via EMS from [place] with complaints of abdominal pain. Patient tells me she started having abdominal pain for about one week. She tells me she has not had a BM since then, however EMS reports states its been a couple of days. Suppository was given at DC with little relief. She states her abdominal pain is slightly better today. It is in LLQ, nonradiating, and sharp in nature. She cannot rate the pain for me today, but EMS notes 10/10 pain and she states its been better since then. EMS note also notes small BM after suppository given at DC yesterday. She states nothing makes it better; she notes having a BM will make it better. She notes spitting up liquid after eating; unable to quantify but notes its not that much and thinks its because she is full; this happens only occasionally. She has no other complaints for me at the moment. She does not make urine, per patient. Denies f/c/s, myalgias/arthralgias, headaches, dizziness, lightheadedness, changes in v/h, cp/palpitations, sob/cough, calf pain/swelling. Of note, patient apparently missed dialysis yesterday as there were issues with her transportation. EMS report does have quote they don't take care of me and I don't feel safe there . CC made aware and will follow up with this. Review of Systems Review of Systems: All systems reviewed & are unremarkable except as noted in HPI and below PMFSH Past Medical History Medical History Aortic valve stenosis Echocardiogram in December 2019 showed at least mild bioprosthetic aortic valve stenosis with an aortic valve area of 1.4 centimeter squared. Asthma Cerebrovascular accident (~2013) Following coronary artery bypass grafting in 2013, with mild right hand weakness. Chronic anemia Chronic kidney disease, stage 5 GFR in December 2019 was around 13. She does have right upper extremity fistula as she nears dialysis. Chronic obstructive pulmonary disease Patient is a lifelong nonsmoker, and this diagnosis is poorly documented in her electronic medical records. Congestive heart failure (~12/2019) Echocardiogram was a technically difficult study with limited views. Left ventricular systolic function was mildly reduced with an estimated ejection fraction of 50 to 55%, moderately increased left ventricular wall thickness, left ventricular septal wall motion abnormality related to bundle branch block, and grade 1 diastolic dysfunction. Coronary artery disease Status post three-vessel CABG in 2013 done at [facility]. Diverticulitis Essential hypertension Hyperlipidemia Ischemic cardiomyopathy Patient previously declined ICD went ejection fraction was much lower (recent EF of 50 to 55% on echocardiogram done in December 2019). Left bundle branch block Osteoarthritis Pseudomyxoma peritonei Shoulder fracture, left Surgically constructed arteriovenous fistula Type 2 diabetes mellitus Surgical History Surgical History History of aortic valve replacement with porcine valve History of bilateral cataract extraction History of exploratory laparotomy (~09/2016) Exploratory laparotomy with drainage of pelvic and right subphrenic abscesses with cultures growing Klebsiella pneumonia and Bacteroides fragilis. Suspected to be caused from perforated bowel. History of three vessel coronary artery bypass (~2013) GONZALEZ to LAD, saphenous vein to diagonal, saphenous vein to right posterior descending artery. Done at [facility]. Status post creation of arteriovenous fistula Right upper extremity. Family
[2020-05-31] MEDS: INSULIN GLARGINE (*BKC) 100 UNITS/ML SUB-Q (13:20)
[2020-05-31] MEDS: MIDODRINE HCL 10 MG TABLET PO ×2 (13:21→18:08)
[2020-05-31] MEDS: DOCUSATE SODIUM 100 MG CAPSULE PO ×2 (13:21→20:36)
[2020-05-31] MEDS: ISOSORBIDE MONONITRATE 30 MG TAB.ER.24H PO (13:21)
[2020-05-31] MEDS: CALCIUM ACETATE 667 MG TABLET PO ×2 (13:21→18:08)
[2020-05-31] MEDS: LACTULOSE 20 GM/30 ML UDC PO (13:22)
[2020-05-31] MEDS: lisinopriL 5 MG TABLET PO ×2 (13:22→20:36)
[2020-05-31] MEDS: polyethylene glycoL 3350 17 GM POWD.PACK PO (13:22)
[2020-05-31] MEDS: BUMETANIDE 1 MG TABLET PO (13:22)
[2020-05-31] MEDS: FAMOTIDINE 20 MG TABLET PO ×2 (13:22→20:36)
[2020-05-31] MEDS: ATORVASTATIN 20 MG TABLET PO (13:22)
[2020-05-31 13:24] LABS: Glucose Point of Care 98 (65-105)
[2020-05-31] MEDS: BISACODYL 10 MG SUPPOSITORY RECTAL (16:10)
[2020-05-31 17:27] LABS: Glucose Point of Care 163 (65-105)
--- NOTE | 2020-05-31 18:35 | PC.NURSE ---
This patient, Martha Reid, was transferred to [facility] on 05/31/20 at 1835. Personal belongings sent with patient. Report given to BRITTANY Riley. Appropriate documentation sent with patient.
[2020-05-31] MEDS: HYDROCORTISONE ACETATE 25 MG SUPPOSITORY RECTAL (20:28)
[2020-05-31 22:14] LABS: Glucose Point of Care 183 (65-105)
[2020-06-01] VITALS (21 sets, daily range): BP systolic 88–125; BP diastolic 43–59; PULSE 73–88; RESP 14–22; TEMP 36.6–37.3; O2SAT 95–99
[2020-06-01 06:26] LABS: Basophils Absolute Auto 0.1 K/mm3 (0.0-0.1); Basophils Percent Auto 0.4 % (0.2-1.2); Eosinophils Percent Auto 0.2 % (0-4.4); Hematocrit 26.5 % (37.0-47.0); Hemoglobin 7.6 g/dL (12.0-15.0); Immature Granulocyte Percent A 0.7 % (0-0.5); Lymphocytes Absolute Auto 1.41 K/mm3 (0.9-3.2); Lymphocytes Percent Auto 10.2 % (18.3-44.2); Mean Corpuscular HGB Conc 28.7 g/dl (32-36); Mean Corpuscular Hemoglobin 29.1 pg (26-34); Mean Corpuscular Volume 101.5 fl (80-100); Mean Platelet Volume 10.9 fl (7.4-10.4); Monocytes Absolute Auto 0.8 K/mm3 (0.1-0.6); Monocytes Percent Auto 5.8 % (2.6-8.5); Neutrophils Absolute Auto 11.5 K/mm3 (1.3-6.7); Neutrophils Percent Auto 82.7 % (45.5-73.1); Nucleated Red Blood Cells Perc 0.1 % (0.0-0.2); Platelet Count Result 253 k/mm3 (150-375); Red Blood Count 2.61 M/mm3 (4.2-5.4); Red Cell Distribution Width 17.4 % (11.5-14.5); White Blood Count 13.9 K/mm3 (4.5-10.0)
[2020-06-01 06:42] LABS: Albumin Level 3.1 g/dL (3.5-5.1); Blood Urea Nitrogen 38 mg/dL (7-17); Calcium 8.3 mg/dL (8.4-10.2); Carbon Dioxide 26 mmol/L (22-30); Chloride 103 mmol/L (98-107); Estimated CRCL calculation 14 ml/min; Estimated Glomerular Filt Rate 14; Glucose 159 mg/dL (65-105); Magnesium 1.8 mg/dL (1.6-2.3); Phosphorus 4.8 mg/dL (2.5-4.5); Potassium 4.4 mmol/L (3.4-5.0); Sodium 136 mmol/L (137-145)
[2020-06-01 07:58] LABS: Glucose Point of Care 137 (65-105)
[2020-06-01] MEDS: INSULIN GLARGINE (*BKC) 100 UNITS/ML SUB-Q (08:29)
[2020-06-01] MEDS: polyethylene glycoL 3350 17 GM POWD.PACK PO (08:32)
[2020-06-01] MEDS: MIDODRINE HCL 10 MG TABLET PO ×3 (08:33→17:02)
[2020-06-01] MEDS: ASPIRIN 325 MG TABLET PO (08:33)
[2020-06-01] MEDS: lisinopriL 5 MG TABLET PO ×2 (08:34→20:10)
[2020-06-01] MEDS: DOCUSATE SODIUM 100 MG CAPSULE PO ×2 (08:34→20:10)
[2020-06-01] MEDS: CALCIUM ACETATE 667 MG TABLET PO ×3 (08:34→17:02)
[2020-06-01] MEDS: FAMOTIDINE 20 MG TABLET PO ×2 (08:34→20:10)
[2020-06-01] MEDS: ISOSORBIDE MONONITRATE 30 MG TAB.ER.24H PO (08:34)
[2020-06-01] MEDS: ATORVASTATIN 20 MG TABLET PO (08:34)
[2020-06-01] MEDS: HYDROCORTISONE ACETATE 25 MG SUPPOSITORY RECTAL ×2 (08:35→20:10)
--- NOTE | 2020-06-01 09:35 | PM.CNNEP ---
Assessment and Plan Assessment and plan (1) End stage renal disease: Code(s): N18.6 - End stage renal disease Status: Chronic Assessment and Plan: HD today and continue T/T/S outpatient dialysis schedule follow electrolytes, volume status, and clearance (2) Missed dialysis: Status: Acute Assessment and Plan: due to inability to transport patient to HD center from nursing facility apparently, missed treatment was not rescheduled either will need to ensure proper transportation in place after discharge (3) Volume overload: Code(s): E87.70 - Fluid overload, unspecified Status: Acute Assessment and Plan: due to #2 HD today fluid removal as tolerated by hemodynamics soft blood pressure makes ultrafiltration challenging (4) Abdominal pain: Qualifiers: Abdominal location: generalized Qualified Code(s): R10.84 - Generalized abdominal pain Code(s): R10.9 - Unspecified abdominal pain Status: Acute Assessment and Plan: presumably due to constipation and possibly UTI follow symptom with treatment of these issues (5) Constipation: Qualifiers: Constipation type: other constipation type Qualified Code(s): K59.09 - Other constipation Code(s): K59.00 - Constipation, unspecified Status: Acute Assessment and Plan: as noted by history and CT scan on admission started stool softners and miralax s/p one time dose of lactulose several BMs noted in the last 24 hours follow trend (6) Acute UTI: Code(s): N39.0 - Urinary tract infection, site not specified Status: Acute Assessment and Plan: UA suggestive follow WBC and cultures on antibiotics Will continue to follow. History of Present Illness Reason for Consult Consult date: 06/01/20 Reason for consult: end stage renal disease Chief Complaint Chief complaint: Pulmonary edema, missed dialysis History of Present Illness Narrative: The patient is a 70 year old female with a signficant past medical history as outlined below who presented to [facility] ER from her nursing faciliy early yesterday morning with complaints of abdominal pain. She apparently has been having abdominal pain for a 1 week duration that she attributes to constipation/not having a bowel movement in the last week although EMS and nursing records indication it has been more likely 2 - 3 days. Supportive interventions including suppositories and cathartics/laxatives given to her at her nursing facility have not been very successful. She states that the abdominal pain was localized to her left lower quadrant described a sharp sensation with no radiation -- not clear what makes it worse but does states having BMs does make it better. Workup and evaluation in the emergency room demonstrated labs consistent with her known history of end-stage renal disease with associated anemia and a mild elevated white blood cell count. CT scan of the abdomen pelvis was unremarkable for any type of intra-abdominal pathology other than stools/constipation. Her chest x-ray was concerning for mild volume overload and given that she missed her dialysis treatment the day before she presented to the emergency room, it was felt that she would benefit from inpatient dialysis and optimization of her bowel regiment along with treatment of her presumed urinary tract infection by her urinalysis. She was subsequent admitted the hospital for further evaluation. Renal consultation was requested due to her end-stage renal disease. The patient currently dialyzes on a Wednesday schedule at [facility] under my care. Unfortunately, the patient has been in and out of the hospital in the last few months for variety of reasons given her multiple medical issues and problems as noted in the medical record. She received dialysis yesterday since she missed her treatmen
[2020-06-01] MEDS: EPOETIN ALFA-EPBX 10,000 UNITS/ML VIAL 20000 UNITS IV PUSH (12:05)
[2020-06-01 14:04] LABS: Glucose Point of Care 98 (65-105)
--- NOTE | 2020-06-01 14:33 | P.PNIM_ITS ---
Progress Note: A&P Assessment and Plan (1) Acute UTI: Code(s): N39.0 - Urinary tract infection, site not specified Status: Acute Assessment and Plan: UA suspicious for UTI; UCx pending. BCx #1 growing gram pos cocci in clusters in aerobic bottle; BCx #2 growing gram pos cocci in clusters in anaerobic bottle; these clinically appear to be contaminates. * Rocephin initiated from ER; continue this for now until culture returns * Tailor antibiotics to cultures * Anticipate discharge in tomorrow pending UCx * Monitor (2) Constipation: Qualifiers: Constipation type: other constipation type Qualified Code(s): K59.09 - Other constipation Code(s): K59.00 - Constipation, unspecified Status: Acute Assessment and Plan: Multiple BMs during stay thus far, but patient still complaining she has to have a BM. Requests a suppository * Continue home bowel regimen * Will give a bisacodyl suppository * Monitor closely (3) End stage renal disease: Code(s): N18.6 - End stage renal disease Status: Chronic Assessment and Plan: TTS HD. Nephrology consulted and appreciate recommendations. Patient underwent dialysis today again. Likely resume normal schedule after discharge on . * Await further rec from Nephrology * Monitor * Trend lab work (4) Volume overload: Code(s): E87.70 - Fluid overload, unspecified Status: Acute Assessment and Plan: Patient missed dialysis due to transportation issues. Nephrology consulted; appreciate recommendations * HD today * Continue home diuretics as well * Await further rec from Nephrology * Monitor (5) Elevated troponin: Code(s): R79.89 - Other specified abnormal findings of blood chemistry Status: Acute Assessment and Plan: Troponins appear to have peaked/plateaued. No chest pain. ACS unlikely. Likely secondary to ESRD. * Monitor for chest pain (6) Type 2 diabetes mellitus: Qualifiers: Diabetes mellitus group home insulin use: with ocean transportation intermediary use Diabetes mellitus complication status: with kidney complications Diabetes mellitus complication detail: with chronic kidney disease Chronic kidney disease stage: on chronic dialysis Qualified Code(s): E11.22 - Type 2 diabetes mellitus with diabetic chronic kidney disease; N18.6 - End stage renal disease; Z79.4 - care home (current) use of insulin; Z99.2 - Dependence on renal dialysis Code(s): E11.9 - Type 2 diabetes mellitus without complications Status: Acute Assessment and Plan: A1c 8.2 on 04/27. BGL high 90s-150s today * Continue home long acting insulin * Accuchecks ACHS, hypoglycemia protocol, correctional insulin, diabetic/renal diet * Monitor (7) Congestive heart failure: Onset Date: ~12/2019 Qualifiers: Heart failure type: other Qualified Code(s): I50.9 - Heart failure, unspecified Code(s): I50.9 - Heart failure, unspecified Status: Acute Assessment and Plan: Patient's ejection fraction is approximately 25% with diastolic dysfunction by last echo on April 30. Probable acute CHF given BNP of greater than 35,000; CXR shows Small left and moderate right pleural effusions with associated basilar atelectasis and/or pneumonia. cardiomegaly * Continue with her lisinopril, isosorbide, and Bumex.
--- NOTE | 2020-06-01 14:33 | PM.IMPN ---
Progress Note: A&P Assessment and Plan (1) Acute UTI: Code(s): N39.0 - Urinary tract infection, site not specified Status: Acute Assessment and Plan: UA suspicious for UTI; UCx pending. BCx #1 growing gram pos cocci in clusters in aerobic bottle; BCx #2 growing gram pos cocci in clusters in anaerobic bottle; these clinically appear to be contaminates. Rocephin initiated from ER; continue this for now until culture returns Tailor antibiotics to cultures Anticipate discharge in tomorrow pending UCx Monitor (2) Constipation: Qualifiers: Constipation type: other constipation type Qualified Code(s): K59.09 - Other constipation Code(s): K59.00 - Constipation, unspecified Status: Acute Assessment and Plan: Multiple BMs during stay thus far, but patient still complaining she has to have a BM. Requests a suppository Continue home bowel regimen Will give a bisacodyl suppository Monitor closely (3) End stage renal disease: Code(s): N18.6 - End stage renal disease Status: Chronic Assessment and Plan: TTS HD. Nephrology consulted and appreciate recommendations. Patient underwent dialysis today again. Likely resume normal schedule after discharge on . Await further rec from Nephrology Monitor Trend lab work (4) Volume overload: Code(s): E87.70 - Fluid overload, unspecified Status: Acute Assessment and Plan: Patient missed dialysis due to transportation issues. Nephrology consulted; appreciate recommendations HD today Continue home diuretics as well Await further rec from Nephrology Monitor (5) Elevated troponin: Code(s): R79.89 - Other specified abnormal findings of blood chemistry Status: Acute Assessment and Plan: Troponins appear to have peaked/plateaued. No chest pain. ACS unlikely. Likely secondary to ESRD. Monitor for chest pain (6) Type 2 diabetes mellitus: Qualifiers: Diabetes mellitus assisted insulin use: with salvage determiner use Diabetes mellitus complication status: with kidney complications Diabetes mellitus complication detail: with chronic kidney disease Chronic kidney disease stage: on chronic dialysis Qualified Code(s): E11.22 - Type 2 diabetes mellitus with diabetic chronic kidney disease; N18.6 - End stage renal disease; Z79.4 - intermediate project manager (current) use of insulin; Z99.2 - Dependence on renal dialysis Code(s): E11.9 - Type 2 diabetes mellitus without complications Status: Acute Assessment and Plan: A1c 8.2 on 04/27. BGL high 90s-150s today Continue home long acting insulin Accuchecks ACHS, hypoglycemia protocol, correctional insulin, diabetic/renal diet Monitor (7) Congestive heart failure: Onset Date: ~12/2019 Qualifiers: Heart failure type: other Qualified Code(s): I50.9 - Heart failure, unspecified Code(s): I50.9 - Heart failure, unspecified Status: Acute Assessment and Plan: Patient's ejection fraction is approximately 25% with diastolic dysfunction by last echo on April 30. Probable acute CHF given BNP of greater than 35,000; CXR shows Small left and moderate right pleural effusions with associated basilar atelectasis and/or pneumonia. cardiomegaly Continue with her lisinopril, isosorbide, and Bumex. 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
[2020-06-01] MEDS: BUMETANIDE 1 MG TABLET PO (17:02)
[2020-06-01] MEDS: BISACODYL 10 MG SUPPOSITORY RECTAL (17:02)
[2020-06-01] MEDS: WITCH HAZEL 40 PADS 1 PAD TOPICAL (17:05)
[2020-06-01 17:49] LABS: Glucose Point of Care 114 (65-105)
[2020-06-02 00:22] LABS: Glucose Point of Care 131 (65-105)
[2020-06-02 06:00] VITALS: BP 106/45; PULSE 77; RESP 18; TEMP 36.8; O2SAT 99
[2020-06-02 08:24] LABS: Glucose Point of Care 122 (65-105)
[2020-06-02] MEDS: DOCUSATE SODIUM 100 MG CAPSULE PO ×2 (08:49→21:08)
[2020-06-02] MEDS: EUCERIN CREAM 120 GM JAR 1 APPLIC TOPICAL (08:49)
[2020-06-02] MEDS: lisinopriL 5 MG TABLET PO (08:49)
[2020-06-02] MEDS: FAMOTIDINE 20 MG TABLET PO ×2 (08:49→21:01)
[2020-06-02] MEDS: polyethylene glycoL 3350 17 GM POWD.PACK PO (08:49)
[2020-06-02] MEDS: CALCIUM ACETATE 667 MG TABLET PO ×3 (08:49→18:37)
[2020-06-02] MEDS: BUMETANIDE 1 MG TABLET PO ×2 (08:49→18:37)
[2020-06-02] MEDS: MIDODRINE HCL 10 MG TABLET PO ×3 (08:49→18:37)
[2020-06-02] MEDS: ISOSORBIDE MONONITRATE 30 MG TAB.ER.24H PO (08:49)
[2020-06-02] MEDS: HYDROCORTISONE ACETATE 25 MG SUPPOSITORY RECTAL ×2 (08:49→21:01)
[2020-06-02] MEDS: ATORVASTATIN 20 MG TABLET PO (08:49)
[2020-06-02] MEDS: ASPIRIN 325 MG TABLET PO (08:50)
[2020-06-02] MEDS: INSULIN GLARGINE (*BKC) 100 UNITS/ML SUB-Q (08:51)
[2020-06-02 11:22] LABS: Basophils Absolute Auto 0.1 K/mm3 (0.0-0.1); Basophils Percent Auto 0.6 % (0.2-1.2); Eosinophils Percent Auto 0.2 % (0-4.4); Hematocrit 28.6 % (37.0-47.0); Hemoglobin 8.3 g/dL (12.0-15.0); Immature Granulocyte Absolute 0.04 K/mm3 (0.00-0.031); Immature Granulocyte Percent A 0.3 % (0-0.5); Lymphocytes Absolute Auto 1.67 K/mm3 (0.9-3.2); Lymphocytes Percent Auto 13.4 % (18.3-44.2); Mean Corpuscular Hemoglobin 29.9 pg (26-34); Mean Corpuscular Volume 102.9 fl (80-100); Mean Platelet Volume 10.7 fl (7.4-10.4); Monocytes Absolute Auto 0.7 K/mm3 (0.1-0.6); Monocytes Percent Auto 5.4 % (2.6-8.5); Neutrophils Percent Auto 80.1 % (45.5-73.1); Nucleated Red Blood Cells Perc 0.2 % (0.0-0.2); Platelet Count Result 281 k/mm3 (150-375); Red Blood Count 2.78 M/mm3 (4.2-5.4); Red Cell Distribution Width 17.1 % (11.5-14.5); White Blood Count 12.5 K/mm3 (4.5-10.0)
[2020-06-02 11:35] LABS: Albumin Level 3.3 g/dL (3.5-5.1); Blood Urea Nitrogen 34 mg/dL (7-17); Calcium 8.5 mg/dL (8.4-10.2); Carbon Dioxide 29 mmol/L (22-30); Chloride 98 mmol/L (98-107); Estimated CRCL calculation 19 ml/min; Estimated Glomerular Filt Rate 17; Glucose 168 mg/dL (65-105); Magnesium 1.8 mg/dL (1.6-2.3); Phosphorus 4.2 mg/dL (2.5-4.5); Potassium 4.3 mmol/L (3.4-5.0); Sodium 136 mmol/L (137-145)
--- NOTE | 2020-06-02 11:37 | P.PNIM_ITS ---
Progress Note: A&P Assessment and Plan (1) Bacteremia: Code(s): R78.81 - Bacteremia Status: Acute Assessment and Plan: BCx growing coag neg staph x 2 cultures. Patient started on Vanc yesterday. 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 VSS/afebrile. No leukocytosis * Echo ordered given bioprosthetic valve; likely to be performed tomorrow * ID consulted and appreciate rec * Continue IV vanc for now * Await further rec from ID. (2) Acute UTI: Code(s): N39.0 - Urinary tract infection, site not specified Status: Acute Assessment and Plan: UA suspicious for UTI; UCx negative. 3 doses of Rocephin given. * d/c rocephin given Ucx results * Monitor (3) Constipation: Qualifiers: Constipation type: other constipation type Qualified Code(s): K59.09 - Other constipation Code(s): K59.00 - Constipation, unspecified Status: Acute Assessment and Plan: Multiple BMs during stay thus far, but patient still complaining she has to have a BM. Requests a suppository again today, but nursing notes she had one this morning with results. Possibly dementia playing a role * Continue home bowel regimen * Will hold on suppository today * Monitor BMs (4) End stage renal disease: Code(s): N18.6 - End stage renal disease Status: Chronic Assessment and Plan: TTS HD. Nephrology consulted and appreciate recommendations. Patient resumed normal regimen yestereday. * Await further rec from Nephrology * Monitor * Trend lab work (5) Volume overload: Code(s): E87.70 - Fluid overload, unspecified Status: Acute Assessment and Plan: Patient missed dialysis due to transportation issues. Nephrology consulted; appreciate recommendations * Continue HD TTS schedule * Continue home diuretics as well * Await further rec from Nephrology * Monitor (6) Elevated troponin: Code(s): R79.89 - Other specified abnormal findings of blood chemistry Status: Acute Assessment and Plan: Troponins appear to have peaked/plateaued. No chest pain. ACS unlikely. Likely secondary to ESRD. * Monitor for chest pain (7) Type 2 diabetes mellitus: Qualifiers: Diabetes mellitus mcfp insulin use: with exterminator termite use Diabetes mellitus complication status: with kidney complications Diabetes mellitus complication detail: with chronic kidney disease Chronic kidney disease stage: on chronic dialysis Qualified Code(s): E11.22 - Type 2 diabetes mellitus with diabetic chronic kidney disease; N18.6 - End stage renal disease; Z79.4 - roasterman (current) use of insulin; Z99.2 - Dependence on renal dialysis Code(s): E11.9 - Type 2 diabetes mellitus without complications Status: Acute Assessment and Plan: A1c 8.2 on 04/27. BGL 160s this morning * Continue home long acting insulin * Accuchecks ACHS, hypoglycemia protocol, correctional insulin, diabetic/renal diet * Monitor (8) Congestive heart failure: Onset Date: ~12/2019 Qualifiers: Heart failure type: other Qualified Code(s): I50.9 - Heart failure, unspecified Code(s): I50.9 - Heart failure, unspecified Status: Acute Assessment and Plan: Patient's ejection fraction is approximately 25% with d
--- NOTE | 2020-06-02 11:37 | PM.IMPN ---
Progress Note: A&P Assessment and Plan (1) Bacteremia: Code(s): R78.81 - Bacteremia Status: Acute Assessment and Plan: BCx growing coag neg staph x 2 cultures. Patient started on Vanc yesterday. 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 VSS/afebrile. No leukocytosis Echo ordered given bioprosthetic valve; likely to be performed tomorrow ID consulted and appreciate rec Continue IV vanc for now Await further rec from ID. (2) Acute UTI: Code(s): N39.0 - Urinary tract infection, site not specified Status: Acute Assessment and Plan: UA suspicious for UTI; UCx negative. 3 doses of Rocephin given. d/c rocephin given Ucx results Monitor (3) Constipation: Qualifiers: Constipation type: other constipation type Qualified Code(s): K59.09 - Other constipation Code(s): K59.00 - Constipation, unspecified Status: Acute Assessment and Plan: Multiple BMs during stay thus far, but patient still complaining she has to have a BM. Requests a suppository again today, but nursing notes she had one this morning with results. Possibly dementia playing a role Continue home bowel regimen Will hold on suppository today Monitor BMs (4) End stage renal disease: Code(s): N18.6 - End stage renal disease Status: Chronic Assessment and Plan: TTS HD. Nephrology consulted and appreciate recommendations. Patient resumed normal regimen yestereday. Await further rec from Nephrology Monitor Trend lab work (5) Volume overload: Code(s): E87.70 - Fluid overload, unspecified Status: Acute Assessment and Plan: Patient missed dialysis Thursday due to transportation issues. Nephrology consulted; appreciate recommendations Continue HD TTS schedule Continue home diuretics as well Await further rec from Nephrology Monitor (6) Elevated troponin: Code(s): R79.89 - Other specified abnormal findings of blood chemistry Status: Acute Assessment and Plan: Troponins appear to have peaked/plateaued. No chest pain. ACS unlikely. Likely secondary to ESRD. Monitor for chest pain (7) Type 2 diabetes mellitus: Qualifiers: Diabetes mellitus superintendent terminal insulin use: with superintendent terminal use Diabetes mellitus complication status: with kidney complications Diabetes mellitus complication detail: with chronic kidney disease Chronic kidney disease stage: on chronic dialysis Qualified Code(s): E11.22 - Type 2 diabetes mellitus with diabetic chronic kidney disease; N18.6 - End stage renal disease; Z79.4 - USP (current) use of insulin; Z99.2 - Dependence on renal dialysis Code(s): E11.9 - Type 2 diabetes mellitus without complications Status: Acute Assessment and Plan: A1c 8.2 on 04/27. BGL 160s this morning Continue home long acting insulin Accuchecks ACHS, hypoglycemia protocol, correctional insulin, diabetic/renal diet Monitor (8) Congestive heart failure: Onset Date: ~12/2019 Qualifiers: Heart failure type: other Qualified Code(s): I50.9 - Heart failure, unspecified Code(s): I50.9 - Heart failure, unspecified Status: Acute Assessment and Plan: Patient's ejection fraction is approximately 25% with diastolic dysfunction by last echo on April 30. Probable acute CHF given BNP of greater than 35,000; CXR shows Small left and moderate right pleural effusions with associated basilar atelectasis and/or pneumonia. cardiomegaly Continue with her lisinopril, isosorbide, and Bumex. (9) Anemia: Code(s): D64.9 - Anemia, unspecified Status: Acute A
[2020-06-02 13:07] LABS: Glucose Point of Care 145 (65-105)
[2020-06-02 14:00] VITALS: BP 110/52; PULSE 78; RESP 16; TEMP 37.1; O2SAT 98
--- NOTE | 2020-06-02 14:08 | P.PNNP_ITS ---
Progress Note: A&P Assessment and Plan (1) End stage renal disease: Code(s): N18.6 - End stage renal disease Status: Chronic Assessment and Plan: * HD yesterday and continue T/T/S outpatient dialysis schedule * follow electrolytes, volume status, and clearance (2) Bacteremia: Code(s): R78.81 - Bacteremia Status: Acute Assessment and Plan: * as noted by blood cultures done on admission * growing coag negative Staph * Echo ordered given history of AVR * dose with IV vancomycin * Infectious Disease consulted (3) Missed dialysis: Status: Acute Assessment and Plan: * due to inability to transport patient to HD center from nursing facility * apparently, missed treatment was not rescheduled either * will need to ensure proper transportation in place after discharge (4) Volume overload: Code(s): E87.70 - Fluid overload, unspecified Status: Acute Assessment and Plan: * due to #3 * HD today * fluid removal as tolerated by hemodynamics * soft blood pressure makes ultrafiltration challenging (5) Abdominal pain: Qualifiers: Abdominal location: generalized Qualified Code(s): R10.84 - Generalized abdominal pain Code(s): R10.9 - Unspecified abdominal pain Status: Acute Assessment and Plan: * presumably due to constipation and possibly UTI * follow symptom with treatment of these issues (6) Constipation: Qualifiers: Constipation type: other constipation type Qualified Code(s): K59.09 - Other constipation Code(s): K59.00 - Constipation, unspecified Status: Acute Assessment and Plan: * as noted by history and CT scan on admission * started stool softners and miralax * s/p one time dose of lactulose * several BMs noted in the last 24 hours * follow trend (7) Acute UTI: Code(s): N39.0 - Urinary tract infection, site not specified Status: Acute Assessment and Plan: * UA suggestive * follow WBC and cultures * on antibiotics Will continue to follow. Subjective Date/time seen: 06/02/20 14:08 Tolerated dialysis yesterday without any issue or problems; only complaint is the sensation she has to have a bowel movement despite the fact she has had several BMs already (complained of constipation on admission and started on bowel regimen); otherwise, no apparent distress. Exam Narrative: Exam Narrative: General: WD/WN female in NAD Heart: normal S1 and S2; no rub Lungs: decreased at the bases Abdomen: soft, nontender, nondistended, positive bowel sounds Extremities: no cyanosis or clubbing; trace edema Skin: warm and dry Objective Data Vital Signs Vital Signs: Vital Signs Temp Pulse Resp BP Pulse Ox 06/02/20 06:00 36.8 C 77 18 106/45 L 99 06/01/20 22:00 37.3 C 80 20 117/50 L 99 06/01/20 16:00 36.6 C 86 14 88/48 L 98 06/01/20 15:32 88/48 L Intake/Output Intake/Output: Intake & Output 05/30/20 05/31/20 06/01/20 06/02/20 23:59 23:59 23:59 23:59 Intake Total 940 980 50 Output Total 3100 850 Balance -2160 130 50 Meds/Results Medications: Active Medications Generic Name Dose Route Start Last Admin Trade Name Freq PRN Reason Stop Dose Admin Acetaminophen 650 mg 0
--- NOTE | 2020-06-02 14:08 | PM.PNNEP ---
Progress Note: A&P Assessment and Plan (1) End stage renal disease: Code(s): N18.6 - End stage renal disease Status: Chronic Assessment and Plan: HD yesterday and continue T/T/S outpatient dialysis schedule follow electrolytes, volume status, and clearance (2) Bacteremia: Code(s): R78.81 - Bacteremia Status: Acute Assessment and Plan: as noted by blood cultures done on admission growing coag negative Staph Echo ordered given history of AVR dose with IV vancomycin Infectious Disease consulted (3) Missed dialysis: Status: Acute Assessment and Plan: due to inability to transport patient to HD center from nursing facility apparently, missed treatment was not rescheduled either will need to ensure proper transportation in place after discharge (4) Volume overload: Code(s): E87.70 - Fluid overload, unspecified Status: Acute Assessment and Plan: due to #3 HD today fluid removal as tolerated by hemodynamics soft blood pressure makes ultrafiltration challenging (5) Abdominal pain: Qualifiers: Abdominal location: generalized Qualified Code(s): R10.84 - Generalized abdominal pain Code(s): R10.9 - Unspecified abdominal pain Status: Acute Assessment and Plan: presumably due to constipation and possibly UTI follow symptom with treatment of these issues (6) Constipation: Qualifiers: Constipation type: other constipation type Qualified Code(s): K59.09 - Other constipation Code(s): K59.00 - Constipation, unspecified Status: Acute Assessment and Plan: as noted by history and CT scan on admission started stool softners and miralax s/p one time dose of lactulose several BMs noted in the last 24 hours follow trend (7) Acute UTI: Code(s): N39.0 - Urinary tract infection, site not specified Status: Acute Assessment and Plan: UA suggestive follow WBC and cultures on antibiotics Will continue to follow. Subjective Date/time seen: 06/02/20 14:08 Tolerated dialysis yesterday without any issue or problems; only complaint is the sensation she has to have a bowel movement despite the fact she has had several BMs already (complained of constipation on admission and started on bowel regimen); otherwise, no apparent distress. Exam Narrative: Exam Narrative: General: WD/WN female in NAD Heart: normal S1 and S2; no rub Lungs: decreased at the bases Abdomen: soft, nontender, nondistended, positive bowel sounds Extremities: no cyanosis or clubbing; trace edema Skin: warm and dry Objective Data Vital Signs Vital Signs: Vital Signs Temp Pulse Resp BP Pulse Ox 06/02/20 06:00 36.8 C 77 18 106/45 L 99 06/01/20 22:00 37.3 C 80 20 117/50 L 99 06/01/20 16:00 36.6 C 86 14 88/48 L 98 06/01/20 15:32 88/48 L Intake/Output Intake/Output: Intake & Output 05/30/20 05/31/20 06/01/20 06/02/20 23:59 23:59 23:59 23:59 Intake Total 940 980 50 Output Total 3100 850 Balance -2160 130 50 Meds/Results Medications: Active Medications Generic Name Dose Route Start Last Admin Trade Name Freq PRN Reason Stop Dose Admin Acetaminophen 650 mg 05/31/20 05:15 Tylenol Tablet PO Q4H PRN Pain or Fever Albuterol 2.5 mg 05/31/20 08:39 Albuterol Sulf Neb 2.5mg/0.5ml INHALATION Q4H PRN Wheezing Aspirin 325 mg 06/01/20 08:00 06/02/20 08:50 Aspirin PO 325 mg DAILY@0800 CYNTHIA Administration Atorvastatin Calcium 20 mg 05/31/20 09:00 06/02/20 08:49 Lipitor PO 20 mg DAILY CYNTHIA Administration Bisacodyl 5 mg 05/31/20 08:39 Dulcolax Tab PO QAM PRN Constipation Bumetanide 1 mg 05/31/20 09:00 06/02/20 08:49 Bumex Po PO 1 mg BID CYNTHIA Administration Calcium Acetate 667 mg 05/31/20 09:00 06/02/20 12:23 Phoslo PO 667 mg TID CYNTHIA Administration
[2020-06-02 16:00] VITALS: BP 111/41; PULSE 75; RESP 20; TEMP 36.6; O2SAT 100
[2020-06-02 16:22] LABS: Glucose Point of Care 197 (65-105)
[2020-06-02 22:55] LABS: Glucose Point of Care 179 (65-105)
[2020-06-03] VITALS: BP 111/41; PULSE 75; RESP 20; TEMP 36.6; O2SAT 100
--- NOTE | 2020-06-03 | ECHO_ITS ---
Patient Info Name: Martha Reid Age: 70 years : 1950 Gender: Female Ht: 62 in Wt: 216 lbs BSA: 2.12 m2 HR: 73 bpm BP: 111 / 41 mmHg Heart Rhythm: Sinus Rhythm Technical Quality: Good Exam Date: 06/03/2020 2:21 PM Exam Location: [facility] Pul[facility] Patient Status: Inpatient Admit Date: 06/01/2020 Staff Ordering Physician: Carlos Erwin PA-C Level Glass Forming Machine Operator: Praful Pineda RDCS, RT Attending Provider: Carlos Erwin PA-C Referring Physician: [facility] Exam Type: CA echo doppler color flow Study Info Complete two-dimensional, color flow and Doppler transthoracic echocardiogram is performed. Summary 1. The mitral valve has moderately thickened leaflets. 2. Left ventricular systolic function is mildly reduced, estimated at 45-50%. 3. There is moderately increased left ventricular wall thickness. 4. Left ventricular septal wall motion is abnormal with septal motion related to a post-operative state. 5. The left ventricular diastolic function is grade I diastolic dysfunction. 6. Left atrial chamber dimension is moderately enlarged. 7. There is moderate to severe mitral valve regurgitation. 8. The mitral valve annulus is severely calcified. 9. The bioprosthetic aortic valve is not well visualized. 10. There is no bioprosthetic aortic valve stenosis. 11. There is no regurgitation of the bioprosthetic aortic valve. 12. Mild pulmonary hypertension, estimated pulmonary arterial systolic pressure is 41 mmHg. 13. There is moderate to severe tricuspid valve regurgitation. Left Ventricle Left ventricular chamber dimension is normal. Left ventricular systolic function is mildly reduced, estimated at 45-50%. There is moderately increased left ventricular wall thickness. Left ventricular septal wall motion is abnormal with septal motion related to a post-operative state. The left ventricular diastolic function is grade I diastolic dysfunction. Right Ventricle Right ventricular chamber dimension is not well visualized. Right ventricular systolic function is reduced. Left Atria Left atrial chamber dimension is moderately enlarged. Right Atria Right atrial chamber dimension is mildly enlarged. Aortic Valve The bioprosthetic aortic valve is not well visualized. There is no bioprosthetic aortic valve stenosis. There is no regurgitation of the bioprosthetic aortic valve. Pulmonic Valve The pulmonic valve is not well visualized. There is mild pulmonic regurgitation. Mitral Valve The mitral valve has moderately thickened leaflets. There is moderate to severe mitral valve regurgitation. The mitral valve annulus is severely calcified. Tricuspid Valve The tricuspid valve leaflets are normal. There is moderate to severe tricuspid valve regurgitation. Mild pulmonary hypertension, estimated pulmonary arterial systolic pressure is 41 mmHg. Pericardium/Pleural The pericardium appears normal. There is no pericardial effusion. Inferior Vena Cava Normal inferior vena cava with >50% collapse upon inspiration consistent with normal right atrial pressure, 5 mmHg. Aorta The aortic root size at the sinus of Valsalva is normal. Left Ventricular Outflow Tract Name Value Normal LVOT 2D LVOT Diameter
[2020-06-03 05:38] LABS: Basophils Percent Auto 0.4 % (0.2-1.2); Eosinophils Absolute Auto 0.1 K/mm3 (0-0.3); Eosinophils Percent Auto 0.5 % (0-4.4); Hemoglobin 8.2 g/dL (12.0-15.0); Immature Granulocyte Absolute 0.04 K/mm3 (0.00-0.031); Immature Granulocyte Percent A 0.4 % (0-0.5); Lymphocytes Absolute Auto 1.62 K/mm3 (0.9-3.2); Lymphocytes Percent Auto 14.3 % (18.3-44.2); Mean Corpuscular HGB Conc 28.3 g/dl (32-36); Mean Corpuscular Hemoglobin 28.8 pg (26-34); Mean Corpuscular Volume 101.8 fl (80-100); Monocytes Absolute Auto 0.8 K/mm3 (0.1-0.6); Monocytes Percent Auto 6.8 % (2.6-8.5); Neutrophils Absolute Auto 8.8 K/mm3 (1.3-6.7); Neutrophils Percent Auto 77.6 % (45.5-73.1); Nucleated Red Blood Cells Perc 0.4 % (0.0-0.2); Platelet Count Result 312 k/mm3 (150-375); Red Blood Count 2.85 M/mm3 (4.2-5.4); White Blood Count 11.3 K/mm3 (4.5-10.0)
[2020-06-03 05:46] LABS: Albumin Level 3.2 g/dL (3.5-5.1); Blood Urea Nitrogen 48 mg/dL (7-17); Calcium 8.6 mg/dL (8.4-10.2); Carbon Dioxide 27 mmol/L (22-30); Chloride 99 mmol/L (98-107); Estimated CRCL calculation 14 ml/min; Estimated Glomerular Filt Rate 11; Glucose 150 mg/dL (65-105); Magnesium 1.9 mg/dL (1.6-2.3); Phosphorus 4.9 mg/dL (2.5-4.5); Potassium 4.1 mmol/L (3.4-5.0); Sodium 136 mmol/L (137-145)
[2020-06-03 06:22] LABS: Anisocytosis 1+ (NORMAL); Platelet Estimate Adequate (Adequate)
[2020-06-03 06:23] LABS: Hypochromasia 1+ (NORMAL)
[2020-06-03 07:50] LABS: Glucose Point of Care 123 (65-105)
--- NOTE | 2020-06-03 07:59 | P.PNNP_ITS ---
Progress Note: A&P Assessment and Plan (1) End stage renal disease: Code(s): N18.6 - End stage renal disease Status: Chronic Assessment and Plan: * HD due tomorrow. * Volume status looks okay. * Potassium is fine (2) Bacteremia: Code(s): R78.81 - Bacteremia Status: Acute Assessment and Plan: * as noted by blood cultures done on admission * growing coag negative Staph * Echo ordered given history of AVR. Not done yet. * dosing with IV vancomycin * Infectious Disease consulted * Afebrile. S. (3) Missed dialysis: Status: Acute Assessment and Plan: * Due to transportation issues at the alf. (4) Volume overload: Code(s): E87.70 - Fluid overload, unspecified Status: Acute Assessment and Plan: * Volume status looks better. * Minimal swelling. * No shortness of breath (5) Abdominal pain: Qualifiers: Abdominal location: generalized Qualified Code(s): R10.84 - Generalized abdominal pain Code(s): R10.9 - Unspecified abdominal pain Status: Acute Assessment and Plan: * presumably due to constipation * CT abdomen did show constipation but nothing else. (6) Constipation: Qualifiers: Constipation type: other constipation type Qualified Code(s): K59.09 - Other constipation Code(s): K59.00 - Constipation, unspecified Status: Acute Assessment and Plan: * as noted by history and CT scan on admission * started stool softners and miralax * s/p one time dose of lactulose * Patient says no bowel movements in 5 days but she had 4 bowel movements on Wednesday and 1 yesterday. * Will see how she does today. (7) Acute UTI: Code(s): N39.0 - Urinary tract infection, site not specified Status: Acute Assessment and Plan: * UA suggestive * Urine culture negative. * on antibiotics Will continue to follow. Subjective Date/time seen: 06/03/20 07:59 Interval history: Patient is alert. She still has abdominal discomfort. No bowel movement in 4 days. Review of Systems Cardiovascular: Cardiovascular: Reports no additional cardiovascular complaints Respiratory: Respiratory: Reports no additional respiratory complaints Gastrointestinal: Gastrointestinal: Reports no additional gastrointestinal complaints Genitourinary: Genitourinary: Reports no additional female genitourinary complaints Exam 2 Narrative: Exam Narrative: General: WD/WN female in NAD Heart: normal S1 and S2; no rub Lungs: decreased at the bases Abdomen: BS+ nontender Extremities: no cyanosis or clubbing; trace edema Skin: No rash Objective Data Vital Signs Vital Signs: Vital Signs - 24 hr 06/02/20 14:00 06/02/20 16:00 06/03/20 00:00 Temperature 37.1 C 36.6 C 36.6 C Pulse Rate 78 75 75 Respiratory Rate 16 20 20 Blood Pressure 110/52 L 111/41 L 111/41 L Pulse Oximetry 98 100 100 Intake/Output Intake/Output: Intake & Output 05/31/20 06/01/20 06/02/20 06/03/20 23:59 23:59 23:59 23:59 Intake Total 940 980 290 0 Output Total 3100 850 0 Balance -2160 130 290 0 Meds/Results Medications: Active Medications Generic Name Dose Route Start Last Adm
--- NOTE | 2020-06-03 07:59 | PM.PNNEP ---
Progress Note: A&P Assessment and Plan (1) End stage renal disease: Code(s): N18.6 - End stage renal disease Status: Chronic Assessment and Plan: HD due tomorrow. Volume status looks okay. Potassium is fine (2) Bacteremia: Code(s): R78.81 - Bacteremia Status: Acute Assessment and Plan: as noted by blood cultures done on admission growing coag negative Staph Echo ordered given history of AVR. Not done yet. dosing with IV vancomycin Infectious Disease consulted Afebrile. S. (3) Missed dialysis: Status: Acute Assessment and Plan: Due to transportation issues at the [facility]. (4) Volume overload: Code(s): E87.70 - Fluid overload, unspecified Status: Acute Assessment and Plan: Volume status looks better. Minimal swelling. No shortness of breath (5) Abdominal pain: Qualifiers: Abdominal location: generalized Qualified Code(s): R10.84 - Generalized abdominal pain Code(s): R10.9 - Unspecified abdominal pain Status: Acute Assessment and Plan: presumably due to constipation CT abdomen did show constipation but nothing else. (6) Constipation: Qualifiers: Constipation type: other constipation type Qualified Code(s): K59.09 - Other constipation Code(s): K59.00 - Constipation, unspecified Status: Acute Assessment and Plan: as noted by history and CT scan on admission started stool softners and miralax s/p one time dose of lactulose Patient says no bowel movements in 5 days but she had 4 bowel movements on Wednesday and 1 yesterday. Will see how she does today. (7) Acute UTI: Code(s): N39.0 - Urinary tract infection, site not specified Status: Acute Assessment and Plan: UA suggestive Urine culture negative. on antibiotics Will continue to follow. Subjective Date/time seen: 06/03/20 07:59 Interval history: Patient is alert. She still has abdominal discomfort. No bowel movement in 4 days. Review of Systems Cardiovascular: Cardiovascular: Reports no additional cardiovascular complaints Respiratory: Respiratory: Reports no additional respiratory complaints Gastrointestinal: Gastrointestinal: Reports no additional gastrointestinal complaints Genitourinary: Genitourinary: Reports no additional female genitourinary complaints Exam Narrative: Exam Narrative: General: WD/WN female in NAD Heart: normal S1 and S2; no rub Lungs: decreased at the bases Abdomen: BS+ nontender Extremities: no cyanosis or clubbing; trace edema Skin: No rash Objective Data Vital Signs Vital Signs: Vital Signs - 24 hr 06/02/20 14:00 06/02/20 16:00 06/03/20 00:00 Temperature 37.1 C 36.6 C 36.6 C Pulse Rate 78 75 75 Respiratory Rate 16 20 20 Blood Pressure 110/52 L 111/41 L 111/41 L Pulse Oximetry 98 100 100 Intake/Output Intake/Output: Intake & Output 05/31/20 06/01/20 06/02/20 06/03/20 23:59 23:59 23:59 23:59 Intake Total 940 980 290 0 Output Total 3100 850 0 Balance -2160 130 290 0 Meds/Results Medications: Active Medications Generic Name Dose Route Start Last Admin Trade Name Freq PRN Reason Stop Dose Admin Acetaminophen 650 mg 05/31/20 05:15 Tylenol Tablet PO Q4H PRN Pain or Fever Albuterol 2.5 mg 05/31/20 08:39 Albuterol Sulf Neb 2.5mg/0.5ml INHALATION Q4H PRN Wheezing Aspirin 325 mg 06/01/20 08:00 06/02/20 08:50 Aspirin PO 325 mg DAILY@0800 CYNTHIA Administration Atorvastatin Calcium 20 mg 05/31/20 09:00 06/02/20 08:49 Lipitor PO 20 mg DAILY CYNTHIA Administration Bisacodyl 5 mg 05/31/20 08:39 Dulcolax Tab PO QAM PRN Constipation Bumetanide 1 mg 05/31/20 09:00 06/02/20 18:37 Bumex Po PO 1 mg BID CYNTHIA Administration Calcium Acetate 667 mg 05/31/20 09:00 06/02/20 18:37 Phoslo PO 667 mg TID [facility] Administrat
[2020-06-03] MEDS: lisinopriL 5 MG TABLET PO ×2 (08:57→20:36)
[2020-06-03] MEDS: BUMETANIDE 1 MG TABLET PO ×2 (08:57→16:14)
[2020-06-03] MEDS: ATORVASTATIN 20 MG TABLET PO (08:57)
[2020-06-03] MEDS: HYDROCORTISONE ACETATE 25 MG SUPPOSITORY RECTAL ×2 (08:57→20:36)
[2020-06-03] MEDS: MIDODRINE HCL 10 MG TABLET PO ×3 (08:57→16:14)
[2020-06-03] MEDS: ASPIRIN 325 MG TABLET PO (08:57)
[2020-06-03] MEDS: FAMOTIDINE 20 MG TABLET PO ×2 (08:57→20:36)
[2020-06-03] MEDS: CALCIUM ACETATE 667 MG TABLET PO ×3 (08:57→16:14)
[2020-06-03] MEDS: ISOSORBIDE MONONITRATE 30 MG TAB.ER.24H PO (08:57)
[2020-06-03] MEDS: EUCERIN CREAM 120 GM JAR 1 APPLIC TOPICAL (08:58)
[2020-06-03] MEDS: INSULIN GLARGINE (*BKC) 100 UNITS/ML SUB-Q (08:59)
[2020-06-03] MEDS: DOCUSATE SODIUM 100 MG CAPSULE PO ×2 (08:59→20:36)
[2020-06-03] MEDS: polyethylene glycoL 3350 17 GM POWD.PACK PO (08:59)
--- NOTE | 2020-06-03 09:01 | WPDINFPN2 ---
Progress Note: A&P Assessment and Plan (1) Bacteremia: Code(s): R78.81 - Bacteremia Status: Acute Assessment and Plan: CNSS bacteremia of ? significance. Bioprosthetic AVR REC Vanc # 3 / 7 days, through dose with HD on 06/06 Subjective Date/time seen: 06/03/20 09:01 Objective Data Vital Signs Vital Signs: Vital Signs - 24 hr 06/02/20 14:00 06/02/20 16:00 06/03/20 00:00 Temperature 37.1 C 36.6 C 36.6 C Pulse Rate 78 75 75 Respiratory Rate 16 20 20 Blood Pressure 110/52 L 111/41 L 111/41 L Pulse Oximetry 98 100 100 Intake/Output Intake/Output: Intake & Output 05/31/20 06/01/20 06/02/20 06/03/20 23:59 23:59 23:59 23:59 Intake Total 940 980 290 240 Output Total 3100 850 0 Balance -2160 130 290 240 Meds/Results Medications: Active Medications Generic Name Dose Route Start Last Admin Trade Name Freq PRN Reason Stop Dose Admin Acetaminophen 650 mg 05/31/20 05:15 Tylenol Tablet PO Q4H PRN Pain or Fever Albuterol 2.5 mg 05/31/20 08:39 Albuterol Sulf Neb 2.5mg/0.5ml INHALATION Q4H PRN Wheezing Aspirin 325 mg 06/01/20 08:00 06/03/20 08:57 Aspirin PO 325 mg DAILY@0800 CYNTHIA Administration Atorvastatin Calcium 20 mg 05/31/20 09:00 06/03/20 08:57 Lipitor PO 20 mg DAILY CYNTHIA Administration Bisacodyl 5 mg 05/31/20 08:39 Dulcolax Tab PO QAM PRN Constipation Bumetanide 1 mg 05/31/20 09:00 06/03/20 08:57 Bumex Po PO 1 mg BID CYNTHIA Administration Calcium Acetate 667 mg 05/31/20 09:00 06/03/20 08:57 Phoslo PO 667 mg TID CYNTHIA Administration Dextrose 12.5 gm 05/31/20 07:31 Dextrose 50% Syringe IV PUSH PRN PRN Hypoglycemia Protocol Docusate Sodium 100 mg 05/31/20 09:00 06/03/20 08:59 Colace Capsule PO 100 mg Q12HR CYNTHIA Administration Famotidine 20 mg 05/31/20 09:00 06/03/20 08:57 Pepcid PO 20 mg Q12HR CYNTHIA Administration Glucagon 1 mg 05/31/20 07:31 Glucagon For Inj IM PRN PRN Hypoglycemia Protocol Glucose 15 gm 05/31/20 07:31 Glutose 15 PO PRN PRN Hypoglycemia Protocol Hydrocortisone Acetate 25 mg 05/31/20 09:00 06/03/20 08:57 Anusol-Hc Suppository RECTAL 25 mg Q12HR CYNTHIA Administration Albumin Human 50 mls @ 999 mls/hr 05/31/20 06:58 Albutein IVPB 06/30/20 06:59 Q10M PRN HYPOTENSION Dextrose 1,000 mls @ 100 mls/hr 05/31/20 07:31 Dextrose 5% 1,000 Ml IVPB PRN PRN Hypoglycemia Protocol Vancomycin HCl 1,000 mg in 250 mls @ 250 mls/hr 06/01/20 15:41 Vancomycin 1,000 Mg/D5w 250 Ml IVPB PRN PRN PER PHARMACIST PROTOCOL Insulin Aspart 3 - 6 units 05/31/20 08:00 06/03/20 08:02 Novolog SUB-Q Not Given TIDWM CYNTHIA Protocol Insulin Glargine 5 units 05/31/20 09:00 06/03/20 08:59 Lantus SUB-Q 5 units DAILY CYNTHIA Administration Ipratropium [place] 0.5 mg 05/31/20 08:39 Atrovent Neb INHALATION [id number] PRN Shortness Of Breath Or Wheezing Isosorbide Mononitrate 30 mg 05/31/20 09:00 06/03/20 08:57 Imdur PO 30 mg QAM CYNTHIA Administration Lisinopril 5 mg 05/31/20 09:00 06/03/20 08:57 Prinivil PO 5 mg Q12HR CYNTHIA Administration Melatonin 3 mg 05/31/20 08:39 Melatonin PO HS PRN Insomnia Midodrine 10 mg 05/31/20 09:00 06/03/20 08:57 Midodrine Hcl PO 10 mg TID CYNTHIA Administration Multi-Ingred Cream/Lotion/Oil/Oint 1 applic 06/02/20 09:00 06/03/20 08:58 Minerin Creme TOPICAL 1 applic QAM CYNTHIA Administration Nitroglycerin 0.4 mg 05/31/20 08:39 Nitrostat Subl 0.4 Mg (1/150) SUBLINGUAL Q5MIN PRN Chest Pain Polyethylene Glycol 17 gm 05/31/20 09:00 06/03/20 08:59 Miralax PO 17 gm DAILY CYNTHIA Administration Christen Arroyo 1 pad 05/31/20 08:39 06/01/20 17:05 Tucks Pads TOPICAL 1 pad PRN PRN Administration Perineal Discomfort Radi
--- NOTE | 2020-06-03 10:08 | P.PNIM_ITS ---
Progress Note: A&P Assessment and Plan (1) Bacteremia: Code(s): R78.81 - Bacteremia Status: Acute Assessment and Plan: BCx growing coag neg staph x 2 cultures. Patient started on Vanc 06/01. 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 VSS/afebrile. Improved leukocytosis to 11.3k. * Echo ordered given bioprosthetic valve; likely to be performed tomorrow * ID consulted and appreciate rec * Continue IV vanc for now; appears patient will continue this through 06/06 per ID rec. * Possible discharge in next 1-2 days if vanc can be given on dialysis day on 06/06; otherwise continue current treatment here through 06/06. CC following and discussing with [facility] to see if she can get vanc at the facility (2) Acute UTI: Code(s): N39.0 - Urinary tract infection, site not specified Status: Ruled-out Assessment and Plan: UA suspicious for UTI; UCx negative. 3 doses of Rocephin given. * d/c rocephin given Ucx results * Monitor (3) Constipation: Qualifiers: Constipation type: other constipation type Qualified Code(s): K59.09 - Other constipation Code(s): K59.00 - Constipation, unspecified Status: Acute Assessment and Plan: Multiple BMs during stay thus far, but patient still complaining she has to have a BM. Requests a suppository again today. Possibly dementia playing a role, as well * Continue home bowel regimen * Will give another laxative suppository today * Monitor BMs (4) End stage renal disease: Code(s): N18.6 - End stage renal disease Status: Chronic Assessment and Plan: TTS HD. Nephrology consulted and appreciate recommendations. Patient resumed normal schedule on 06/01 * Await further rec from Nephrology * Monitor * Trend lab work (5) Volume overload: Code(s): E87.70 - Fluid overload, unspecified Status: Acute Assessment and Plan: Patient missed dialysis due to transportation issues. Nephrology consulted; appreciate recommendations * Continue HD TTS schedule * Continue home diuretics as well * Await further rec from Nephrology * Monitor (6) Elevated troponin: Code(s): R79.89 - Other specified abnormal findings of blood chemistry Status: Acute Assessment and Plan: Troponins appear to have peaked/plateaued. No chest pain. ACS unlikely. Likely secondary to ESRD. * Monitor for chest pain (7) Type 2 diabetes mellitus: Qualifiers: Chronic kidney disease stage: on chronic dialysis Diabetes mellitus complication detail: with chronic kidney disease Diabetes mellitus complication status: with kidney complications Diabetes mellitus intermediate teacher insulin use: with intermediate teacher use Qualified Code(s): E11.22 - Type 2 diabetes mellitus with diabetic chronic kidney disease; N18.6 - End stage renal disease; Z79.4 - termite exterminator helper (current) use of insulin; Z99.2 - Dependence on renal dialysis Code(s): E11.9 - Type 2 diabetes mellitus without complications Status: Acute Assessment and Plan: A1c 8.2 on 04/27. BGL 120-150s this morning * Continue home long acting insulin * Accuchecks ACHS, hypoglycemia protocol, correctional insulin, diabetic/renal diet * Monitor (8) Congestive heart failure: Onset Date: ~12/2019 Qualifiers: Heart failure t
--- NOTE | 2020-06-03 10:08 | PM.IMPN ---
Progress Note: A&P Assessment and Plan (1) Bacteremia: Code(s): R78.81 - Bacteremia Status: Acute Assessment and Plan: BCx growing coag neg staph x 2 cultures. Patient started on Vanc 06/01. 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 VSS/afebrile. Improved leukocytosis to 11.3k. Echo ordered given bioprosthetic valve; likely to be performed tomorrow ID consulted and appreciate rec Continue IV vanc for now; appears patient will continue this through 06/06 per ID rec. Possible discharge in next 1-2 days if vanc can be given on dialysis day on 06/06; otherwise continue current treatment here through 06/06. CC following and discussing with [facility] to see if she can get vanc at the facility (2) Acute UTI: Code(s): N39.0 - Urinary tract infection, site not specified Status: Ruled-out Assessment and Plan: UA suspicious for UTI; UCx negative. 3 doses of Rocephin given. d/c rocephin given Ucx results Monitor (3) Constipation: Qualifiers: Constipation type: other constipation type Qualified Code(s): K59.09 - Other constipation Code(s): K59.00 - Constipation, unspecified Status: Acute Assessment and Plan: Multiple BMs during stay thus far, but patient still complaining she has to have a BM. Requests a suppository again today. Possibly dementia playing a role, as well Continue home bowel regimen Will give another laxative suppository today Monitor BMs (4) End stage renal disease: Code(s): N18.6 - End stage renal disease Status: Chronic Assessment and Plan: TTS HD. Nephrology consulted and appreciate recommendations. Patient resumed normal schedule on 06/01 Await further rec from Nephrology Monitor Trend lab work (5) Volume overload: Code(s): E87.70 - Fluid overload, unspecified Status: Acute Assessment and Plan: Patient missed dialysis due to transportation issues. Nephrology consulted; appreciate recommendations Continue HD TTS schedule Continue home diuretics as well Await further rec from Nephrology Monitor (6) Elevated troponin: Code(s): R79.89 - Other specified abnormal findings of blood chemistry Status: Acute Assessment and Plan: Troponins appear to have peaked/plateaued. No chest pain. ACS unlikely. Likely secondary to ESRD. Monitor for chest pain (7) Type 2 diabetes mellitus: Qualifiers: Chronic kidney disease stage: on chronic dialysis Diabetes mellitus complication detail: with chronic kidney disease Diabetes mellitus complication status: with kidney complications Diabetes mellitus jail insulin use: with buttermaker continuous churn use Qualified Code(s): E11.22 - Type 2 diabetes mellitus with diabetic chronic kidney disease; N18.6 - End stage renal disease; Z79.4 - salvage determiner (current) use of insulin; Z99.2 - Dependence on renal dialysis Code(s): E11.9 - Type 2 diabetes mellitus without complications Status: Acute Assessment and Plan: A1c 8.2 on 04/27. BGL 120-150s this morning Continue home long acting insulin Accuchecks ACHS, hypoglycemia protocol, correctional insulin, diabetic/renal diet Monitor (8) Congestive heart failure: Onset Date: ~12/2019 Qualifiers: Heart failure type: other Qualified Code(s): I50.9 - Heart failure, unspecified Code(s): I50.9 - Heart failure, unspecified Status: Acute Assessment and Plan: Patient's ejection fraction is approximately 25% with diastolic dysfunction by last echo on April 30. Probable acute CHF given BNP of greater than 35,000; CXR shows Small left and moderate right pleural effusions with associated bas
[2020-06-03 10:40] VITALS: BP 113/54; PULSE 74; RESP 16; TEMP 36.3; O2SAT 98
[2020-06-03] MEDS: BISACODYL 10 MG SUPPOSITORY RECTAL (11:51)
[2020-06-03] MEDS: INSULIN ASPART (*BKC) 100 UNITS/ML SUB-Q ×2 (11:52→16:15)
[2020-06-03 12:04] LABS: Glucose Point of Care 225 (65-105)
--- NOTE | 2020-06-03 13:00 | PC.NURSE ---
Patient had dressing to L neck (gauze and tegaderm). Patient stating this was from the last time she was in the hospital. Dressing removed, cleaned with warm soap/water, and bandaid applied. No sight of infection noted, dry/intact. Will monitor.
--- NOTE | 2020-06-03 13:25 | P.CDI_ITS ---
CDI Query Clarification Request -CHF documented - Patient's ejection fraction is approx. 25% with diastolic dysfunction by last echo on April 30. Probable acute CHF given BNP of greater than 35,000;CXR shows Small left and moderate right pleural effusions with associated basilar atelectasis and/or pneumonia. cardiomegaly documented -Coders cannot code type of CHF from echo report Please further clarify type of CHF: * Systolic * Diastolic * Both Systolic and Diastolic * Unable to determine
[2020-06-03 14:00] VITALS: BP 114/50; PULSE 71; RESP 18; TEMP 36.3; O2SAT 97
[2020-06-03 16:29] LABS: Glucose Point of Care 214 (65-105)
[2020-06-03 20:27] LABS: Glucose Point of Care 231 (65-105)
[2020-06-03 22:00] VITALS: BP 130/49; PULSE 75; RESP 20; TEMP 36.7; O2SAT 97
[2020-06-04 06:00] VITALS: BP 125/77; PULSE 75; RESP 20; TEMP 36.4; O2SAT 98
--- NOTE | 2020-06-04 06:14 | CONS_ITS ---
DATE OF CONSULTATION: 06/03/2020 REASON FOR CONSULTATION: Bacteremia. HISTORY OF PRESENT ILLNESS: The patient is a 70-year-old female, known to me from last month when she had a community-acquired pneumonia. She has chronic renal failure as well. She has fistula in the right upper extremity. She was readmitted to the hospital on May 31 with abdominal pain for unknown reasons. Blood cultures were collected and are now positive. Consultation requested. She is on vancomycin day #3. Her abdominal pain is believed to be due to constipation for which she is being treated actively. She has been on no other antibiotics. No immunosuppressants. ALLERGIES: IV DYE. HABITS: No tobacco. No alcohol. PRESENT MEDICATIONS: No immunosuppressants. PAST MEDICAL HISTORY: Aortic valve stenosis with bioprosthetic aortic valve, also asthma, previous stroke, COPD, heart failure, diverticulitis, hypertension, hyperlipidemia, ischemic cardiomyopathy, osteoarthritis, left shoulder fracture, diabetes mellitus, exploratory laparotomy, CABG. FAMILY HISTORY: Not pertinent to her present illness. SOCIAL HISTORY: longterm resident mostly recently. She is . lives locally. She is retired. REVIEW OF SYSTEMS: 14-point review was negative. PHYSICAL EXAMINATION: GENERAL: This is a chronically ill-appearing female, older than her actual age. No acute distress. VITAL SIGNS: Afebrile. 111/41, 75, 20, 100% saturation on room air. SKIN: Decreased turgor. Warm and dry. EENT: Conjunctivae are normal. The oropharynx, oral mucosa normal. NECK: No masses. No thyromegaly. LUNGS: Clear to auscultation and percussion. CARDIAC: Regular rate and rhythm. No murmur, gallop, or rub. No heaves. ABDOMEN: Diffusely tender. No guarding. Normal bowel sounds. Nondistended, not tympanitic. EXTREMITIES: Without clubbing, cyanosis, or edema. She has a fistula in the right arm, which is without erythema, tenderness, warmth or drainage. LABORATORY DATA: Blood cultures from admission, 2/2 sets coagulase-negative Staph species. Blood cultures from May 16, no growth final. White count is 11.3 today, hemoglobin 8.2, which is stable. Platelets are 312. Differential is normal. She has mild hyponatremia. BUN 48, creatinine 3.9, alkaline phosphatase 160. BNP is high, albumin 3.2. Lipase normal. Urinalysis multiple abnormalities, not particularly suggestive of infection. Hepatitis B surface antigen nonreactive, surface antibody nonreactive. RADIOLOGY: Chest x-ray shows pleural effusions with atelectasis. Abdomen and pelvic CT, constipation, pleural effusion, cardiomegaly, hepatic artery aneurysm. ASSESSMENT: 1. Abdominal pain, noninfectious. 2. Staphylococcus bacteremia of questionable significance. She does have a mild leukocytosis, but no fever. She has a bioprosthetic aortic valve in place, but no other signs of infection of this valve or other endovascular sites. 3. Chronic renal failure with fistula. Recommendations vancomycin day #3 out of 7 days. She can be dosed with dialysis with her last dose being on dialysis day on June 06. 4. Okay with me for discharge once arrangements were made for transportation from her [facility] to her dialysis unit discussed. Thank you very much for asking me to see her. CAMILA RING M.D. SUPERVISOR ENROBING SUPERVISOR ENROBING D Mark MT: Alexandra
[2020-06-04 07:53] LABS: Glucose Point of Care 141 (65-105)
[2020-06-04] MEDS: ASPIRIN 325 MG TABLET PO (07:55)
[2020-06-04] MEDS: INSULIN GLARGINE (*BKC) 100 UNITS/ML SUB-Q (07:56)
[2020-06-04] MEDS: ATORVASTATIN 20 MG TABLET PO (08:00)
[2020-06-04] MEDS: HYDROCORTISONE ACETATE 25 MG SUPPOSITORY RECTAL ×2 (08:01→20:54)
[2020-06-04] MEDS: ISOSORBIDE MONONITRATE 30 MG TAB.ER.24H PO (08:01)
[2020-06-04] MEDS: MIDODRINE HCL 10 MG TABLET PO ×3 (08:01→16:26)
[2020-06-04] MEDS: BUMETANIDE 1 MG TABLET PO ×2 (08:01→16:26)
[2020-06-04] MEDS: lisinopriL 5 MG TABLET PO ×2 (08:01→20:54)
[2020-06-04] MEDS: CALCIUM ACETATE 667 MG TABLET PO ×3 (08:01→16:26)
[2020-06-04] MEDS: polyethylene glycoL 3350 17 GM POWD.PACK PO (08:03)
[2020-06-04] MEDS: DOCUSATE SODIUM 100 MG CAPSULE PO ×2 (08:03→20:58)
[2020-06-04] MEDS: FAMOTIDINE 20 MG TABLET PO ×2 (08:12→20:54)
[2020-06-04] MEDS: EUCERIN CREAM 120 GM JAR 1 APPLIC TOPICAL (08:12)
[2020-06-04 08:23] VITALS: O2SAT 95
--- NOTE | 2020-06-04 09:15 | P.PNNP_ITS ---
Progress Note: A&P Assessment and Plan (1) End stage renal disease: Code(s): N18.6 - End stage renal disease Status: Chronic Assessment and Plan: * HD due today. It will be done this afternoon. * Volume status looks okay. * She refused blood work. It will be done in dialysis. (2) Bacteremia: Code(s): R78.81 - Bacteremia Status: Acute Assessment and Plan: * as noted by blood cultures done on admission * growing coag negative Staph * Echo shows mildly reduced LV EF, grade 1 diastolic dysfunction, moderate to severe mitral regurgitation, no regurgitation or stenosis of the aortic valve, mild pulmonary hypertension, moderate to severe tricuspid valve regurgitation. No mention of vegetations. * dosing with IV vancomycin * Dr. daly has seen the patient. * Afebrile. (3) Missed dialysis: Status: Acute Assessment and Plan: * Due to transportation issues at the shelter. (4) Volume overload: Code(s): E87.70 - Fluid overload, unspecified Status: Acute Assessment and Plan: * Volume status looks better. * Minimal swelling. This is pretty good especially since she has moderate to severe tricuspid regurgitation. * No shortness of breath (5) Abdominal pain: Qualifiers: Abdominal location: generalized Qualified Code(s): R10.84 - Generalized abdominal pain Code(s): R10.9 - Unspecified abdominal pain Status: Acute Assessment and Plan: * presumably due to constipation * CT abdomen did show constipation but nothing else. (6) Constipation: Qualifiers: Constipation type: other constipation type Qualified Code(s): K59.09 - Other constipation Code(s): K59.00 - Constipation, unspecified Status: Acute Assessment and Plan: * as noted by history and CT scan on admission * She had a bowel movement a few minutes ago. (7) Acute UTI: Code(s): N39.0 - Urinary tract infection, site not specified Status: Ruled-out Assessment and Plan: * UA suggestive * Urine culture negative. * on antibiotics Subjective Date/time seen: 06/04/20 09:15 Interval history: Patient is alert. Up in a chair and eating breakfast. She is hungry. She still has some abdominal discomfort. Review of Systems Cardiovascular: Cardiovascular: Reports no additional cardiovascular complaints Respiratory: Respiratory: Reports no additional respiratory complaints Gastrointestinal: Gastrointestinal: Reports no additional gastrointestinal complaints Genitourinary: Genitourinary: Reports no additional female genitourinary complaints Exam Narrative: Exam Narrative: General: WD/WN female in NAD Heart: normal S1 and S2; no rub Lungs: decreased at the bases Abdomen: BS+ nontender and soft Extremities: trace edema Skin: No rash or subcu nodules Objective Data Vital Signs Vital Signs: Vital Signs - 24 hr 06/03/20 10:40 06/03/20 14:00 06/03/20 22:00 Temperature 36.3 C L 36.3 C L 36.7 C Pulse Rate 74 71 75 Respiratory Rate 16 18 20 Blood Pressure 113/54 L 114/50 L 130/49 L Pulse Oximetry 98 97 97 06/04/20 06:00 06/04/20 08:23 Temperature 36.4 C Pulse Rate 75 Respiratory Rate 20 Blood Pressure 125/77 Pulse Oximetry 98 95
--- NOTE | 2020-06-04 09:15 | PM.PNNEP ---
Progress Note: A&P Assessment and Plan (1) End stage renal disease: Code(s): N18.6 - End stage renal disease Status: Chronic Assessment and Plan: HD due today. It will be done this afternoon. Volume status looks okay. She refused blood work. It will be done in dialysis. (2) Bacteremia: Code(s): R78.81 - Bacteremia Status: Acute Assessment and Plan: as noted by blood cultures done on admission growing coag negative Staph Echo shows mildly reduced LV EF, grade 1 diastolic dysfunction, moderate to severe mitral regurgitation, no regurgitation or stenosis of the aortic valve, mild pulmonary hypertension, moderate to severe tricuspid valve regurgitation. No mention of vegetations. dosing with IV vancomycin Dr. daly has seen the patient. Afebrile. (3) Missed dialysis: Status: Acute Assessment and Plan: [facility] (4) Volume overload: Code(s): E87.70 - Fluid overload, unspecified Status: Acute Assessment and Plan: Volume status looks better. Minimal swelling. This is pretty good especially since she has moderate to severe tricuspid regurgitation. No shortness of breath (5) Abdominal pain: Qualifiers: Abdominal location: generalized Qualified Code(s): R10.84 - Generalized abdominal pain Code(s): R10.9 - Unspecified abdominal pain Status: Acute Assessment and Plan: presumably due to constipation CT abdomen did show constipation but nothing else. (6) Constipation: Qualifiers: Constipation type: other constipation type Qualified Code(s): K59.09 - Other constipation Code(s): K59.00 - Constipation, unspecified Status: Acute Assessment and Plan: as noted by history and CT scan on admission She had a bowel movement a few minutes ago. (7) Acute UTI: Code(s): N39.0 - Urinary tract infection, site not specified Status: Ruled-out Assessment and Plan: UA suggestive Urine culture negative. on antibiotics Subjective Date/time seen: 06/04/20 09:15 Interval history: Patient is alert. Up in a chair and eating breakfast. She is hungry. She still has some abdominal discomfort. Review of Systems Cardiovascular: Cardiovascular: Reports no additional cardiovascular complaints Respiratory: Respiratory: Reports no additional respiratory complaints Gastrointestinal: Gastrointestinal: Reports no additional gastrointestinal complaints Genitourinary: Genitourinary: Reports no additional female genitourinary complaints Exam Narrative: Exam Narrative: General: WD/WN female in NAD Heart: normal S1 and S2; no rub Lungs: decreased at the bases Abdomen: BS+ nontender and soft Extremities: trace edema Skin: No rash or subcu nodules Objective Data Vital Signs Vital Signs: Vital Signs - 24 hr 06/03/20 10:40 06/03/20 14:00 06/03/20 22:00 Temperature 36.3 C L 36.3 C L 36.7 C Pulse Rate 74 71 75 Respiratory Rate 16 18 20 Blood Pressure 113/54 L 114/50 L 130/49 L Pulse Oximetry 98 97 97 06/04/20 06:00 06/04/20 08:23 Temperature 36.4 C Pulse Rate 75 Respiratory Rate 20 Blood Pressure 125/77 Pulse Oximetry 98 95 Intake/Output Intake/Output: Intake & Output 06/01/20 06/02/20 06/03/20 06/04/20 23:59 23:59 23:59 23:59 Intake Total 980 290 970 290 Output Total 850 600 Balance 130 290 370 290 Meds/Results Medications: Active Medications Generic Name Dose Route Start Last Admin Trade Name Freq PRN Reason Stop Dose Admin Acetaminophen 650 mg 05/31/20 05:15 Tylenol Tablet PO Q4H PRN Pain or Fever Albuterol 2.5 mg 05/31/20 08:39 Albuterol Sulf Neb 2.5mg/0.5ml INHALATION Q4H PRN Wheezing Aspirin 325 mg 06/01/20 08:00 06/04/20 07:55 Aspirin PO 325 mg DAILY@0800 CYNTHIA Administration Atorvastatin Calcium 20 mg 05/31/20 09:
--- NOTE | 2020-06-04 11:16 | PC.NURSE ---
Clarified with Dr. Saini on patients Vancomycin dosing. Patient so far this admit has only received 1 dose of Vanc on 06/01/2020. However, per his note it says she is on #3/7. [address] Saini, he is aware patient is receiving Vanc on dialysis days. He stated it is okay for her to receive doses on dialysis days, and is aware that today is day #2. Spoke with care coordination to update that she will need to be discharged with this set up w/dialysis.
[2020-06-04] MEDS: INSULIN ASPART (*BKC) 100 UNITS/ML SUB-Q (11:35)
[2020-06-04 11:51] LABS: Glucose Point of Care 205 (65-105)
--- NOTE | 2020-06-04 12:36 | WPDINFPN2 ---
Progress Note: A&P Assessment and Plan (1) Bacteremia: Code(s): R78.81 - Bacteremia Status: Acute Assessment and Plan: 1. CNSS bacteremia of ? significance. 2. Bioprosthetic AVR 3. Mild leukocytosis REC Vanc # 4 / 7 days, through dose with HD on 06/06. Redo BCs in am. If persistent +, suggest JAME. If negative, then stop Vanc on schedule. Subjective Date/time seen: 06/04/20 12:36 Interval history: no complaints Exam Narrative: Exam Narrative: afebrile Const: General: no acute distress Eyes: General: appearance normal, both eyes and all related structures Resp: Effort & Inspection: normal respiratory effort Auscultation: clear to auscultation bilaterally Cardio: Rate: regular rate Rhythm: regular rhythm Heart sounds: no murmurs GI: Inspection: non-distended GI Palp: Yes Soft to palpation and No Tenderness to palpation present (GI) Skin: General skin exam: normal color and no rashes or lesions noted Other: RUE fistula site and surrounding skin: no erythema, tenderness, skin breakdown, warmth Objective Data Vital Signs Vital Signs: Vital Signs - 24 hr 06/03/20 14:00 06/03/20 22:00 06/04/20 06:00 Temperature 36.3 C L 36.7 C 36.4 C Pulse Rate 71 75 75 Respiratory Rate 18 20 20 Blood Pressure 114/50 L 130/49 L 125/77 Pulse Oximetry 97 97 98 06/04/20 08:23 Temperature Pulse Rate Respiratory Rate Blood Pressure Pulse Oximetry 95 Intake/Output Intake/Output: Intake & Output 06/01/20 06/02/20 06/03/20 06/04/20 23:59 23:59 23:59 23:59 Intake Total 980 290 970 530 Output Total 850 600 Balance 130 290 370 530 Meds/Results Medications: Active Medications Generic Name Dose Route Start Last Admin Trade Name Freq PRN Reason Stop Dose Admin Acetaminophen 650 mg 05/31/20 05:15 Tylenol Tablet PO Q4H PRN Pain or Fever Albuterol 2.5 mg 05/31/20 08:39 Albuterol Sulf Neb 2.5mg/0.5ml INHALATION Q4H PRN Wheezing Aspirin 325 mg 06/01/20 08:00 06/04/20 07:55 Aspirin PO 325 mg DAILY@0800 CYNTHIA Administration Atorvastatin Calcium 20 mg 05/31/20 09:00 06/04/20 08:00 Lipitor PO 20 mg DAILY CYNTHIA Administration Bisacodyl 5 mg 05/31/20 08:39 Dulcolax Tab PO QAM PRN Constipation Bumetanide 1 mg 05/31/20 09:00 06/04/20 08:01 Bumex Po PO 1 mg BID CYNTHIA Administration Calcium Acetate 667 mg 05/31/20 09:00 06/04/20 12:14 Phoslo PO 667 mg TID CYNTHIA Administration Dextrose 12.5 gm 05/31/20 07:31 Dextrose 50% Syringe IV PUSH PRN PRN Hypoglycemia Protocol Docusate Sodium 100 mg 05/31/20 09:00 06/04/20 08:03 Colace Capsule PO 100 mg Q12HR CYNTHIA Administration Famotidine 20 mg 05/31/20 09:00 06/04/20 08:12 Pepcid PO 20 mg Q12HR CYNTHIA Administration Glucagon 1 mg 05/31/20 07:31 Glucagon For Inj IM PRN PRN Hypoglycemia Protocol Glucose 15 gm 05/31/20 07:31 Glutose 15 PO PRN PRN Hypoglycemia Protocol Hydrocortisone Acetate 25 mg 05/31/20 09:00 06/04/20 08:01 Anusol-Hc Suppository RECTAL 25 mg Q12HR CYNTHIA Administration Albumin Human 50 mls @ 999 mls/hr 05/31/20 06:58 Albutein IVPB 06/30/20 06:59 Q10M PRN HYPOTENSION Dextrose 1,000 mls @ 100 mls/hr 05/31/20 07:31 Dextrose 5% 1,000 Ml IVPB PRN PRN Hypoglycemia Protocol Vancomycin HCl 1,000 mg in 250 mls @ 250 mls/hr 06/01/20 15:41 Vancomycin 1,000 Mg/D5w 250 Ml IVPB PRN PRN PER PHARMACIST PROTOCOL Insulin Aspart 3 - 6 units 05/31/20 08:00 06/04/20 11:35 Novolog SUB-Q 3 units TIDWM CYNTHIA Administration Protocol Insulin Glargine 5 units 05/31/20 09:00 06/04/20 07:56 Lantus SUB-Q 5 units DAILY CYNTHIA Administration Ipratropium Anton 0.5 mg 05/31/20 08:39 Atrovent Neb INHALATION [id number] PRN Shortness Of Breath Or Wheezing Isosorbide Mononitrate 30 mg 05/31/20 09:0
[2020-06-04 13:33] VITALS: BP 112/52; PULSE 77; RESP 16; TEMP 36.1; O2SAT 100
--- NOTE | 2020-06-04 13:54 | PC.NURSE ---
Spoke with Dr. Saini in regards to his progress note from today. Per Dr. Saini, we may order blood cultures now and still discharge the patient. He stated that if blood cultures result positive he will take care of it from there. Notified DEVON Manuel.
[2020-06-04 16:11] LABS: Basophils Percent Auto 0.3 % (0.2-1.2); Eosinophils Absolute Auto 0.1 K/mm3 (0-0.3); Eosinophils Percent Auto 0.5 % (0-4.4); Hematocrit 30.7 % (37.0-47.0); Immature Granulocyte Absolute 0.05 K/mm3 (0.00-0.031); Immature Granulocyte Percent A 0.4 % (0-0.5); Lymphocytes Absolute Auto 1.98 K/mm3 (0.9-3.2); Lymphocytes Percent Auto 16.3 % (18.3-44.2); Mean Corpuscular HGB Conc 29.3 g/dl (32-36); Mean Corpuscular Hemoglobin 29.6 pg (26-34); Mean Platelet Volume 10.8 fl (7.4-10.4); Monocytes Absolute Auto 0.6 K/mm3 (0.1-0.6); Monocytes Percent Auto 5.3 % (2.6-8.5); Neutrophils Absolute Auto 9.4 K/mm3 (1.3-6.7); Neutrophils Percent Auto 77.2 % (45.5-73.1); Nucleated Red Blood Cells Absolute Auto 0.1 K/mm3 (0.0-0.012); Nucleated Red Blood Cells Perc 0.8 % (0.0-0.2); Platelet Count Result 336 k/mm3 (150-375); Red Blood Count 3.04 M/mm3 (4.2-5.4); Red Cell Distribution Width 17.1 % (11.5-14.5); White Blood Count 12.2 K/mm3 (4.5-10.0)
[2020-06-04 16:19] LABS: Glucose Point of Care 167 (65-105)
[2020-06-04 16:27] LABS: Albumin Level 3.6 g/dL (3.5-5.1); Blood Urea Nitrogen 65 mg/dL (7-17); Calcium 8.6 mg/dL (8.4-10.2); Carbon Dioxide 24 mmol/L (22-30); Chloride 98 mmol/L (98-107); Estimated CRCL calculation 8 ml/min; Estimated Glomerular Filt Rate 7; Glucose 184 mg/dL (65-105); Magnesium 1.9 mg/dL (1.6-2.3); Phosphorus 4.4 mg/dL (2.5-4.5); Potassium 4.1 mmol/L (3.4-5.0); Sodium 137 mmol/L (137-145)
--- NOTE | 2020-06-04 16:27 | P.PNIM_ITS ---
Progress Note: A&P Assessment and Plan (1) Bacteremia: Code(s): R78.81 - Bacteremia Status: Acute Assessment and Plan: BCx growing coag neg staph x 2 cultures. Patient started on Vanc 06/01/20. 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 VSS/afebrile. WBC 12.2k. * There is no mention of vegetations on echo * ID has been consulted and recommendations are appreciated * Continue IV vanc for now; appears patient will continue this through 06/06 per ID rec. * Repeat blood cultures. If persistently positive, JAME has been recommended * Hopeful discharge tomorrow. She will receive a dose of vancomycin on 06/06 at outpatient dialysis. This will be her final dose (2) Acute UTI: Code(s): N39.0 - Urinary tract infection, site not specified Status: Ruled-out Assessment and Plan: UA suspicious for UTI; UCx negative. 3 doses of Rocephin given. She denies any urinary symptoms. * Rocephin discontinued on 06/02/2020 given negative urine culture * Continue to monitor (3) Constipation: Qualifiers: Constipation type: other constipation type Qualified Code(s): K59.09 - Other constipation Code(s): K59.00 - Constipation, unspecified Status: Acute Assessment and Plan: She has had several documented bowel movements during her stay thus far, however she states that she has not had a bowel movement in 7 days. She has requested suppository. She had a large bowel movement this morning. * Continue home bowel regimen * Continue to monitor closely (4) End stage renal disease: Code(s): N18.6 - End stage renal disease Status: Chronic Assessment and Plan: She receives hemodialysis on TTS schedule. She had apparently missed a dialysis appointment due to transportation issues. Patient resumed normal schedule on 06/01 * Nephrology has been consulted and their recommendations are appreciated * Plan for dialysis this afternoon * Continue to monitor renal function closely (5) Volume overload: Code(s): E87.70 - Fluid overload, unspecified Status: Acute Assessment and Plan: Patient missed dialysis 05/30/2020 due to transportation issues. She appears euvolemic at this time. * Resume TTS schedule * Continue home diuretics * Continues monitor closely (6) Elevated troponin: Code(s): R79.89 - Other specified abnormal findings of blood chemistry Status: Acute Assessment and Plan: Troponins appear to have peaked/plateaued. No chest pain. ACS unlikely. Likely secondary to ESRD. 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 Blood sugar is have been fairly well controlled. Ranging from 140-200 today. * Continue home long acting insulin * Accuchecks ACHS, hypoglycemia protocol, correctional insulin, diabetic/renal diet * Continue to monitor blood sugars closely (8) Congestive h
--- NOTE | 2020-06-04 16:27 | PM.IMPN ---
Progress Note: A&P Assessment and Plan (1) Bacteremia: Code(s): R78.81 - Bacteremia Status: Acute Assessment and Plan: BCx growing coag neg staph x 2 cultures. Patient started on Vanc 06/01/20. 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 VSS/afebrile. WBC 12.2k. There is no mention of vegetations on echo ID has been consulted and recommendations are appreciated Continue IV vanc for now; appears patient will continue this through 06/06 per ID rec. Repeat blood cultures. If persistently positive, JAME has been recommended Hopeful discharge tomorrow. She will receive a dose of vancomycin on 06/06 at outpatient dialysis. This will be her final dose (2) Acute UTI: Code(s): N39.0 - Urinary tract infection, site not specified Status: Ruled-out Assessment and Plan: UA suspicious for UTI; UCx negative. 3 doses of Rocephin given. She denies any urinary symptoms. Rocephin discontinued on 06/02/2020 given negative urine culture Continue to monitor (3) Constipation: Qualifiers: Constipation type: other constipation type Qualified Code(s): K59.09 - Other constipation Code(s): K59.00 - Constipation, unspecified Status: Acute Assessment and Plan: She has had several documented bowel movements during her stay thus far, however she states that she has not had a bowel movement in 7 days. She has requested suppository. She had a large bowel movement this morning. Continue home bowel regimen Continue to monitor closely (4) End stage renal disease: Code(s): N18.6 - End stage renal disease Status: Chronic Assessment and Plan: She receives hemodialysis on TTS schedule. She had apparently missed a dialysis appointment due to transportation issues. Patient resumed normal schedule on 06/01 Nephrology has been consulted and their recommendations are appreciated Plan for dialysis this afternoon Continue to monitor renal function closely (5) Volume overload: Code(s): E87.70 - Fluid overload, unspecified Status: Acute Assessment and Plan: Patient missed dialysis 05/30/2020 due to transportation issues. She appears euvolemic at this time. Resume TTS schedule Continue home diuretics Continues monitor closely (6) Elevated troponin: Code(s): R79.89 - Other specified abnormal findings of blood chemistry Status: Acute Assessment and Plan: Troponins appear to have peaked/plateaued. No chest pain. ACS unlikely. Likely secondary to ESRD. 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 Blood sugar is have been fairly well controlled. Ranging from 140-200 today. Continue home long acting insulin Accuchecks ACHS, hypoglycemia protocol, correctional insulin, diabetic/renal diet Continue to monitor blood sugars closely (8) Congestive heart failure: Onset Date: ~12/2019 Qualifiers: Heart failure type: other Qualified Code(s): I50.9 - Heart failure, unspecified Code(s): I50.9 - Heart failure, unspecified Status: Acute Assessment and Plan: Patient's ejection fraction is approximately 25% with diastolic dysfunction by last echo on April 30. Probable acute CHF given BNP of greater than 35,000; CXR shows Small left and modera
[2020-06-04 16:32] LABS: Hypochromasia 1+ (NORMAL); Platelet Estimate Adequate (Adequate)
[2020-06-04 16:33] LABS: Anisocytosis 3+ (NORMAL)
--- NOTE | 2020-06-04 16:54 | PC.NURSE ---
1604 vanc trough that was drawn prior to dialysis is inaccurate. According to vanc order, the vanc trough was to be drawn after dialysis or in dialysis session. Spoke with electronic device repairer who stated he would draw it towards the end of the session. Entered a new vanc trough order to be drawn after dialysis (or end of session). Spoke with cable reeler who verbalized understanding. Will send tube and sticker with patient so RN can draw.
[2020-06-04 20:49] LABS: Glucose Point of Care 223 (65-105)
[2020-06-04 22:00] VITALS: BP 127/52; PULSE 90; RESP 20; TEMP 36.3; O2SAT 99
[2020-06-05] VITALS (22 sets, daily range): BP systolic 89–133; BP diastolic 28–62; PULSE 72–90; RESP 16–20; TEMP 36.2–37; O2SAT 99–100
[2020-06-05] MEDS: ATORVASTATIN 20 MG TABLET PO (07:44)
[2020-06-05] MEDS: ASPIRIN 325 MG TABLET PO (07:44)
[2020-06-05] MEDS: BUMETANIDE 1 MG TABLET PO ×2 (07:45→17:18)
[2020-06-05] MEDS: FAMOTIDINE 20 MG TABLET PO ×2 (07:45→20:04)
[2020-06-05] MEDS: CALCIUM ACETATE 667 MG TABLET PO ×3 (07:45→17:18)
[2020-06-05] MEDS: MIDODRINE HCL 10 MG TABLET PO ×3 (07:45→17:18)
[2020-06-05] MEDS: EUCERIN CREAM 120 GM JAR 1 APPLIC TOPICAL (07:46)
[2020-06-05] MEDS: lisinopriL 5 MG TABLET PO ×2 (07:46→20:04)
[2020-06-05] MEDS: ISOSORBIDE MONONITRATE 30 MG TAB.ER.24H PO (07:46)
[2020-06-05] MEDS: DOCUSATE SODIUM 100 MG CAPSULE PO ×2 (07:49→20:04)
[2020-06-05] MEDS: INSULIN GLARGINE (*BKC) 100 UNITS/ML SUB-Q (07:50)
--- NOTE | 2020-06-05 08:19 | P.PNNP_ITS ---
Progress Note: A&P Assessment and Plan (1) End stage renal disease: Code(s): N18.6 - End stage renal disease Status: Chronic Assessment and Plan: * HD was not done yesterday. Good thrill and bruit in the graft today. Will try again today. * Volume status looks okay. * (2) Bacteremia: Code(s): R78.81 - Bacteremia Status: Acute Assessment and Plan: * as noted by blood cultures done on admission * growing coag negative Staph * Echo shows mildly reduced LV EF, grade 1 diastolic dysfunction, moderate to severe mitral regurgitation, no regurgitation or stenosis of the aortic valve, mild pulmonary hypertension, moderate to severe tricuspid valve regurgitation. No mention of vegetations. * dosing with IV vancomycin * Dr. daly has seen the patient. * Afebrile. * We can continue Vanco as an outpatient with her hemodialysis sessions. (3) Missed dialysis: Status: Acute Assessment and Plan: * Due to transportation issues at the [facility]. (4) Volume overload: Code(s): E87.70 - Fluid overload, unspecified Status: Acute Assessment and Plan: * Volume status looks better. * Minimal swelling. This is pretty good especially since she has moderate to severe tricuspid regurgitation. * No shortness of breath * No chest pain. (5) Abdominal pain: Qualifiers: Abdominal location: generalized Qualified Code(s): R10.84 - Generalized abdominal pain Code(s): R10.9 - Unspecified abdominal pain Status: Acute Assessment and Plan: * presumably due to constipation * CT abdomen did show constipation but nothing else. (6) Constipation: Qualifiers: Constipation type: other constipation type Qualified Code(s): K59.09 - Other constipation Code(s): K59.00 - Constipation, unspecified Status: Acute Assessment and Plan: * as noted by history and CT scan on admission * She has been having bowel movements. * Eating well. (7) Acute UTI: Code(s): N39.0 - Urinary tract infection, site not specified Status: Ruled-out Assessment and Plan: * UA shows pyuria * Urine culture negative. * on antibiotics Subjective Date/time seen: 06/05/20 08:19 Interval history: Patient is alert. Patient feels okay. Still some belly pain but not as bad. She had dialysis yesterday but nurse was unable to access the graft. There was a good thrill and bruit now. I talked with the dialysis nurse who is here today and he will try again this morning. Review of Systems Cardiovascular: Cardiovascular: Reports no additional cardiovascular complaints Respiratory: Respiratory: Reports no additional respiratory complaints Gastrointestinal: Gastrointestinal: Reports no additional gastrointestinal complaints Genitourinary: Genitourinary: Reports no additional female genitourinary complaints Exam Narrative: Exam Narrative: General: WD/WN female in NAD Heart: normal S1 and S2; no rub Lungs: decreased at the bases Abdomen: BS+ nontender and soft Extremities: trace edema and no cyanosis Skin: No rash Objective Data Vital Signs Vital Signs: Vital Signs - 24 hr 06/04/20 08:23 06/04/20 13:33 06/04/20 22:00 Temperature 36.1 C L 36.3 C L Pulse Rate 77 90 Respiratory Rate 16 20 Blood Pressure 112/52 L 127/52 L
--- NOTE | 2020-06-05 08:19 | PM.PNNEP ---
Progress Note: A&P Assessment and Plan (1) End stage renal disease: Code(s): N18.6 - End stage renal disease Status: Chronic Assessment and Plan: HD was not done yesterday. Good thrill and bruit in the graft today. Will try again today. Volume status looks okay. (2) Bacteremia: Code(s): R78.81 - Bacteremia Status: Acute Assessment and Plan: as noted by blood cultures done on admission growing coag negative Staph Echo shows mildly reduced LV EF, grade 1 diastolic dysfunction, moderate to severe mitral regurgitation, no regurgitation or stenosis of the aortic valve, mild pulmonary hypertension, moderate to severe tricuspid valve regurgitation. No mention of vegetations. dosing with IV vancomycin Dr. daly has seen the patient. Afebrile. We can continue Vanco as an outpatient with her hemodialysis sessions. (3) Missed dialysis: Status: Acute Assessment and Plan: Due to transportation issues at the [facility]. (4) Volume overload: Code(s): E87.70 - Fluid overload, unspecified Status: Acute Assessment and Plan: Volume status looks better. Minimal swelling. This is pretty good especially since she has moderate to severe tricuspid regurgitation. No shortness of breath No chest pain. (5) Abdominal pain: Qualifiers: Abdominal location: generalized Qualified Code(s): R10.84 - Generalized abdominal pain Code(s): R10.9 - Unspecified abdominal pain Status: Acute Assessment and Plan: presumably due to constipation CT abdomen did show constipation but nothing else. (6) Constipation: Qualifiers: Constipation type: other constipation type Qualified Code(s): K59.09 - Other constipation Code(s): K59.00 - Constipation, unspecified Status: Acute Assessment and Plan: as noted by history and CT scan on admission She has been having bowel movements. Eating well. (7) Acute UTI: Code(s): N39.0 - Urinary tract infection, site not specified Status: Ruled-out Assessment and Plan: UA shows pyuria Urine culture negative. on antibiotics Subjective Date/time seen: 06/05/20 08:19 Interval history: Patient is alert. Patient feels okay. Still some belly pain but not as bad. She had dialysis yesterday but nurse was unable to access the graft. There was a good thrill and bruit now. I talked with the dialysis nurse who is here today and he will try again this morning. Review of Systems Cardiovascular: Cardiovascular: Reports no additional cardiovascular complaints Respiratory: Respiratory: Reports no additional respiratory complaints Gastrointestinal: Gastrointestinal: Reports no additional gastrointestinal complaints Genitourinary: Genitourinary: Reports no additional female genitourinary complaints Exam Narrative: Exam Narrative: General: WD/WN female in NAD Heart: normal S1 and S2; no rub Lungs: decreased at the bases Abdomen: BS+ nontender and soft Extremities: trace edema and no cyanosis Skin: No rash Objective Data Vital Signs Vital Signs: Vital Signs - 24 hr 06/04/20 08:23 06/04/20 13:33 06/04/20 22:00 Temperature 36.1 C L 36.3 C L Pulse Rate 77 90 Respiratory Rate 16 20 Blood Pressure 112/52 L 127/52 L Pulse Oximetry 95 100 99 06/05/20 06:00 Temperature 36.2 C L Pulse Rate 78 Respiratory Rate 20 Blood Pressure 129/52 L Pulse Oximetry 99 Intake/Output Intake/Output: Intake & Output 06/02/20 06/03/20 06/04/20 06/05/20 23:59 23:59 23:59 23:59 Intake Total 601 984 4950 0 Output Total 600 50 Balance 473 875 3222 -50 Meds/Results Medications: Active Medications Generic Name Dose Route Start Last Admin Trade Name Freq PRN Reason Stop Dose Admin Acetaminophen 650 mg 05/31/20 05:15 Tylenol Tablet PO Q4H PRN Pain or Fever Albuterol 2.5 mg 05/31/20 08:39 Albut
[2020-06-05 09:09] LABS: Glucose Point of Care 155 (65-105)
[2020-06-05] MEDS: HYDROCORTISONE ACETATE 25 MG SUPPOSITORY RECTAL ×2 (09:21→20:05)
[2020-06-05 10:30] LABS: Hematocrit 25.9 % (37.0-47.0); Hemoglobin 7.7 g/dL (12.0-15.0); Mean Corpuscular HGB Conc 29.7 g/dl (32-36); Mean Corpuscular Hemoglobin 29.7 pg (26-34); Mean Platelet Volume 11.1 fl (7.4-10.4); Platelet Count Result 306 k/mm3 (150-375); Red Blood Count 2.59 M/mm3 (4.2-5.4); Red Cell Distribution Width 16.9 % (11.5-14.5); White Blood Count 11.5 K/mm3 (4.5-10.0)
[2020-06-05 10:38] LABS: Albumin Level 3.2 g/dL (3.5-5.1); Blood Urea Nitrogen 61 mg/dL (7-17); Calcium 8.2 mg/dL (8.4-10.2); Carbon Dioxide 25 mmol/L (22-30); Chloride 99 mmol/L (98-107); Estimated CRCL calculation 10 ml/min; Estimated Glomerular Filt Rate 9; Glucose 191 mg/dL (65-105); Phosphorus 3.9 mg/dL (2.5-4.5); Sodium 134 mmol/L (137-145)
--- NOTE | 2020-06-05 11:19 | PM.EVENT ---
Event Note Event Note Event Note: on hd ofelia it well. removing some fluid. fistula is very superficial explaining the difficulty last night. Seen at 11:15am
[2020-06-05] MEDS: EPOETIN ALFA 10,000 UNITS/ML VIAL 20000 UNITS IV PUSH (11:33)
--- NOTE | 2020-06-05 12:05 | PCOTNOTE ---
Attempted to see patient this pm, however patient off floor for dialysis at this time.
--- NOTE | 2020-06-05 12:45 | WPDINFPN2 ---
Progress Note: A&P Assessment and Plan (1) Bacteremia: Code(s): R78.81 - Bacteremia Status: Acute Assessment and Plan: 1. CNSS bacteremia of ? significance. 2. Bioprosthetic AVR 3. Mild leukocytosis REC Vanc # 5 / 7 days, PharmD is dosing for target trough 10-15. No doses needed after tomorrow (if not sooner, depending on levels). Redo BCs done; if persistent +, suggest JAME. If negative, then stop Vanc on schedule. Subjective Date/time seen: 06/05/20 12:45 Interval history: on HD Exam Narrative: Exam Narrative: afebrile Const: General: no acute distress Eyes: General: appearance normal, both eyes and all related structures Resp: Effort & Inspection: normal respiratory effort Auscultation: clear to auscultation bilaterally Cardio: Rate: regular rate Rhythm: regular rhythm Heart sounds: no gallops and no murmurs GI: Inspection: non-distended GI Palp: Yes Soft to palpation and No Tenderness to palpation present (GI) Skin: General skin exam: normal color and no rashes or lesions noted Other: fistula site is normal Objective Data Vital Signs Vital Signs: Vital Signs - 24 hr 06/04/20 13:33 06/04/20 22:00 06/05/20 06:00 Temperature 36.1 C L 36.3 C L 36.2 C L Pulse Rate 77 90 78 Respiratory Rate 16 20 20 Blood Pressure 112/52 L 127/52 L 129/52 L Pulse Oximetry 100 99 99 06/05/20 09:35 06/05/20 09:50 06/05/20 10:00 Temperature 36.3 C L Pulse Rate 77 88 72 Respiratory Rate 16 Blood Pressure 133/60 132/62 129/54 L Pulse Oximetry 06/05/20 10:15 06/05/20 10:30 06/05/20 10:45 Temperature Pulse Rate 75 79 76 Respiratory Rate Blood Pressure 112/55 L 114/59 L 108/54 L Pulse Oximetry 06/05/20 11:00 06/05/20 11:15 06/05/20 11:30 Temperature Pulse Rate 81 82 79 Respiratory Rate Blood Pressure 98/52 L 90/46 L 96/47 L Pulse Oximetry 06/05/20 11:45 06/05/20 12:00 06/05/20 12:15 Temperature Pulse Rate 77 76 90 Respiratory Rate Blood Pressure 98/50 L 105/50 L 101/41 L Pulse Oximetry 06/05/20 12:30 Temperature Pulse Rate 73 Respiratory Rate Blood Pressure 102/50 L Pulse Oximetry Intake/Output Intake/Output: Intake & Output 06/02/20 06/03/20 06/04/20 06/05/20 23:59 23:59 23:59 23:59 Intake Total 985 908 8487 480 Output Total 600 50 Balance 116 131 6557 430 Meds/Results Medications: Active Medications Generic Name Dose Route Start Last Admin Trade Name Freq PRN Reason Stop Dose Admin Acetaminophen 650 mg 05/31/20 05:15 Tylenol Tablet PO Q4H PRN Pain or Fever Albuterol 2.5 mg 05/31/20 08:39 Albuterol Sulf Neb 2.5mg/0.5ml INHALATION Q4H PRN Wheezing Aspirin 325 mg 06/01/20 08:00 06/05/20 07:44 Aspirin PO 325 mg DAILY@0800 CYNTHIA Administration Atorvastatin Calcium 20 mg 05/31/20 09:00 06/05/20 07:44 Lipitor PO 20 mg DAILY CYNTHIA Administration Bisacodyl 5 mg 05/31/20 08:39 Dulcolax Tab PO QAM PRN Constipation Bumetanide 1 mg 05/31/20 09:00 06/05/20 07:45 Bumex Po PO 1 mg BID CYNTHIA Administration Calcium Acetate 667 mg 05/31/20 09:00 06/05/20 07:45 Phoslo PO 667 mg TID CYNTHIA Administration Dextrose 12.5 gm 05/31/20 07:31 Dextrose 50% Syringe IV PUSH PRN PRN Hypoglycemia Protocol Docusate Sodium 100 mg 05/31/20 09:00 06/05/20 07:49 Colace Capsule PO 100 mg Q12HR CYNTHIA Administration Famotidine 20 mg 05/31/20 09:00 06/05/20 07:45 Pepcid PO 20 mg Q12HR CYNTHIA Administration Glucagon 1 mg 05/31/20 07:31 Glucagon For Inj IM PRN PRN Hypoglycemia Protocol Glucose 15 gm 05/31/20 07:31 Glutose 15 PO PRN PRN Hypoglycemia Protocol Hydrocortisone Acetate 25 mg 05/31/20 09:00 06/05/20 09:21 Anusol-Hc Suppository RECTAL 25 mg Q12HR CYNTHIA Administration Albumin Human 50 mls @ 999 mls/hr 05/31/20 06:58 Albutein IVPB 06/30/20 06:59
--- NOTE | 2020-06-05 14:11 | PC.NURSE ---
Returned from dialysis
--- NOTE | 2020-06-05 15:16 | PM.IMPN ---
Progress Note: A&P Assessment and Plan (1) Bacteremia: Code(s): R78.81 - Bacteremia Status: Acute Assessment and Plan: BCx growing coag neg staph x 2 cultures. Patient started on Vanc 06/01/20. 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 There is no mention of vegetations on echo. VSS/afebrile. WBC 11.5k. ID has been consulted and recommendations are appreciated Continue IV vanc for now. She will receive her final dose tomorrow in the hospital. Repeat blood cultures show NGTD. Will await final cultures. If BCx become positive, JAME has been recommended. Hopeful discharge tomorrow. She is awaiting an isolation bed at [facility]. She will receive her last dose of vancomycin here tomorrow. (2) Acute UTI: Code(s): N39.0 - Urinary tract infection, site not specified Status: Ruled-out Assessment and Plan: UA suspicious for UTI, however UCx negative. 3 doses of Rocephin given. She denies any urinary symptoms. Rocephin discontinued on 06/02/2020 given negative urine culture Continue to monitor (3) Constipation: Qualifiers: Constipation type: other constipation type Qualified Code(s): K59.09 - Other constipation Code(s): K59.00 - Constipation, unspecified Status: Acute Assessment and Plan: She has had several documented bowel movements during her stay thus far, however she states that she has not had a bowel movement in 7 days. She had a large bowel movement yesterday morning. She refused MiraLax this morning. Continue home bowel regimen Continue to monitor (4) End stage renal disease: Code(s): N18.6 - End stage renal disease Status: Chronic Assessment and Plan: She receives hemodialysis on TTS schedule. She had apparently missed a dialysis appointment due to transportation issues however her normal schedule was resumed on 06/01. She was unable to get dialysis yesterday due to issues with graft access. She received hemodialysis today. Nephrology has been consulted and their recommendations are appreciated Plan for dialysis tomorrow to resume TTS schedule Continue to monitor renal function closely (5) Volume overload: Qualifiers: Hypervolemia type: unspecified Qualified Code(s): E87.70 - Fluid overload, unspecified Code(s): E87.70 - Fluid overload, unspecified Status: Acute Assessment and Plan: Patient missed dialysis 05/30/2020 due to transportation issues. She appears euvolemic at this time. She denies cough or shortness of breath. Resume TTS schedule. Plan for dialysis tomorrow Continue home diuretics Continues monitor closely (6) Elevated troponin: Code(s): R79.89 - Other specified abnormal findings of blood chemistry Status: Acute Assessment and Plan: Troponins appear to have peaked/plateaued. No chest pain. ACS unlikely. Likely secondary to ESRD. Monitor for chest pain (7) Type 2 diabetes mellitus: Qualifiers: Diabetes mellitus intermediate frame tender insulin use: with prison use Diabetes mellitus complication status: with kidney complications Diabetes mellitus complication detail: with chronic kidney disease Chronic kidney disease stage: on chronic dialysis Qualified Code(s): E11.22 - Type 2 diabetes mellitus with diabetic chronic kidney disease; N18.6 - End stage renal disease; Z79.4 - terminologist (current) use of insulin; Z99.2 - Dependence on renal dialysis Code(s): E11.9 - Type 2 diabetes mellitus without complications Status: Acute Assessment and Plan: A1c 8.2 on 04/27. Blood sugars have been fairly well controlled. Ranging from 150-220s today. Continue home long acting insulin Accuchecks ACHS, hypoglycemia protocol, correctional insulin, diabetic/renal diet Continue to monitor blood sugars closely (8) Congestive heart failure: Onset Date: ~12/2019 Qual
[2020-06-05 17:37] LABS: Glucose Point of Care 155 (65-105)
[2020-06-05 17:37] LABS: Glucose Point of Care 87 (65-105)
[2020-06-05] MEDS: WITCH HAZEL 40 PADS 1 PAD TOPICAL ×2 (18:26→19:47)
[2020-06-05] MEDS: ACETAMINOPHEN 325 MG TABLET 650 MG PO (20:04)
[2020-06-06] VITALS (20 sets, daily range): BP systolic 108–128; BP diastolic 48–69; PULSE 75–93; RESP 18–20; TEMP 36.2–37; O2SAT 98–100
[2020-06-06 04:12] LABS: Glucose Point of Care 222 (65-105)
[2020-06-06 07:57] LABS: Glucose Point of Care 115 (65-105)
[2020-06-06] MEDS: INSULIN GLARGINE (*BKC) 100 UNITS/ML SUB-Q (08:27)
[2020-06-06] MEDS: MIDODRINE HCL 10 MG TABLET PO ×2 (08:36→13:05)
--- NOTE | 2020-06-06 08:40 | PC.NURSE ---
Patient to dialysis per bed at 0830.
--- NOTE | 2020-06-06 09:01 | PCOTNOTE ---
Attempted to see patient this am, however patient in dialysis.
--- NOTE | 2020-06-06 09:06 | PCPTNOTE ---
Pt out of room for dialysis, unable to be seen for PT. P.T. will continue to follow per plan of care.
[2020-06-06 09:08] LABS: Hematocrit 26.6 % (37.0-47.0); Hemoglobin 7.8 g/dL (12.0-15.0); Mean Corpuscular HGB Conc 29.3 g/dl (32-36); Mean Corpuscular Hemoglobin 29.1 pg (26-34); Mean Corpuscular Volume 99.3 fl (80-100); Mean Platelet Volume 10.8 fl (7.4-10.4); Platelet Count Result 289 k/mm3 (150-375); Red Blood Count 2.68 M/mm3 (4.2-5.4); Red Cell Distribution Width 17.5 % (11.5-14.5)
[2020-06-06] MEDS: HEPARIN SODIUM 1,000 UNITS/ML VIAL 1000 UNITS IV PUSH (09:22)
[2020-06-06] MEDS: HEPARIN SODIUM 1,000 UNITS/ML VIAL 500 UNITS IV PUSH ×3 (09:25→11:25)
[2020-06-06] MEDS: HYDROCORTISONE ACETATE 25 MG SUPPOSITORY RECTAL (09:47)
[2020-06-06] MEDS: EPOETIN ALFA-EPBX 10,000 UNITS/ML VIAL 20000 UNITS IV PUSH (10:55)
--- NOTE | 2020-06-06 11:31 | P.PNNP_ITS ---
Progress Note: A&P Assessment and Plan (1) End stage renal disease: Code(s): N18.6 - End stage renal disease Status: Chronic Assessment and Plan: * HD today to get back on schedule. * Will try to take 2liters off (2) Bacteremia: Code(s): R78.81 - Bacteremia Status: Acute Assessment and Plan: * as noted by blood cultures done on admission * growing coag negative Staph * Echo shows mildly reduced LV EF, grade 1 diastolic dysfunction, moderate to severe mitral regurgitation, no regurgitation or stenosis of the aortic valve, mild pulmonary hypertension, moderate to severe tricuspid valve regurgitation. No mention of vegetations. * dosing with IV vancomycin * Dr. daly has seen the patient. * Afebrile. * today is her last dose of vancomycin (3) Missed dialysis: Status: Acute Assessment and Plan: * [facility]. (4) Volume overload: Qualifiers: Hypervolemia type: unspecified Qualified Code(s): E87.70 - Fluid overload, unspecified Code(s): E87.70 - Fluid overload, unspecified Status: Acute Assessment and Plan: * Volume status looks good right now. (5) Abdominal pain: Qualifiers: Abdominal location: generalized Qualified Code(s): R10.84 - Generalized abdominal pain Code(s): R10.9 - Unspecified abdominal pain Status: Acute Assessment and Plan: * presumably due to constipation * CT abdomen did show constipation but nothing else. * Doing better (6) Constipation: Qualifiers: Constipation type: other constipation type Qualified Code(s): K59.09 - Other constipation Code(s): K59.00 - Constipation, unspecified Status: Acute Assessment and Plan: * as noted by history and CT scan on admission * She has been having bowel movements. * Eating well. (7) Acute UTI: Code(s): N39.0 - Urinary tract infection, site not specified Status: Ruled-out Assessment and Plan: cultures negative. Subjective Date/time seen: 06/06/20 11:31 Interval history: Patient is alert. Patient is on dialysis. She is tolerating this well. Her blood pressure is doing pretty well. We will try to take 2liters off if tolerated. She was seen at 10:45 a.m. Review of Systems Cardiovascular: Cardiovascular: Reports no additional cardiovascular complaints Respiratory: Respiratory: Reports no additional respiratory complaints Gastrointestinal: Gastrointestinal: Reports no additional gastrointestinal complaints Genitourinary: Genitourinary: Reports no additional female genitourinary complaints Exam Narrative: Exam Narrative: General: WD/WN female in NAD Heart: normal S1 and S2; no rub Lungs: decreased at the bases Abdomen: BS+ nontender and soft Extremities: trace edema and no cyanosis Skin: No rash or subcu nodules Objective Data Vital Signs Vital Signs: Vital Signs - 24 hr 06/05/20 11:45 06/05/20 12:00 06/05/20 12:15 Temperature Pulse Rate 77 76 90 Respiratory Rate Blood Pressure 98/50 L 105/50 L 101/41 L Pulse Oximetry 06/05/20 12:30 06/05/20 12:45 06/05/20 13:00 Temperature Pulse Rate 73 78 78 Respiratory Rate Blood Pressure 102/50
--- NOTE | 2020-06-06 11:31 | PM.PNNEP ---
Progress Note: A&P Assessment and Plan (1) End stage renal disease: Code(s): N18.6 - End stage renal disease Status: Chronic Assessment and Plan: HD today to get back on schedule. Will try to take 2liters off (2) Bacteremia: Code(s): R78.81 - Bacteremia Status: Acute Assessment and Plan: as noted by blood cultures done on admission growing coag negative Staph Echo shows mildly reduced LV EF, grade 1 diastolic dysfunction, moderate to severe mitral regurgitation, no regurgitation or stenosis of the aortic valve, mild pulmonary hypertension, moderate to severe tricuspid valve regurgitation. No mention of vegetations. dosing with IV vancomycin Dr. daly has seen the patient. Afebrile. today is her last dose of vancomycin (3) Missed dialysis: Status: Acute Assessment and Plan: Due to [facility] issues [facility] the [facility]. (4) Volume overload: Qualifiers: Hypervolemia type: unspecified Qualified Code(s): E87.70 - Fluid overload, unspecified Code(s): E87.70 - Fluid overload, unspecified Status: Acute Assessment and Plan: Volume status looks good right now. (5) Abdominal pain: Qualifiers: Abdominal location: generalized Qualified Code(s): R10.84 - Generalized abdominal pain Code(s): R10.9 - Unspecified abdominal pain Status: Acute Assessment and Plan: presumably due to constipation CT abdomen did show constipation but nothing else. Doing better (6) Constipation: Qualifiers: Constipation type: other constipation type Qualified Code(s): K59.09 - Other constipation Code(s): K59.00 - Constipation, unspecified Status: Acute Assessment and Plan: as noted by history and CT scan on admission She has been having bowel movements. Eating well. (7) Acute UTI: Code(s): N39.0 - Urinary tract infection, site not specified Status: Ruled-out Assessment and Plan: cultures negative. Subjective Date/time seen: 06/06/20 11:31 Interval history: Patient is alert. Patient is on dialysis. She is tolerating this well. Her blood pressure is doing pretty well. We will try to take 2liters off if tolerated. She was seen at 10:45 a.m. Review of Systems Cardiovascular: Cardiovascular: Reports no additional cardiovascular complaints Respiratory: Respiratory: Reports no additional respiratory complaints Gastrointestinal: Gastrointestinal: Reports no additional gastrointestinal complaints Genitourinary: Genitourinary: Reports no additional female genitourinary complaints Exam Narrative: Exam Narrative: General: WD/WN female in NAD Heart: normal S1 and S2; no rub Lungs: decreased at the bases Abdomen: BS+ nontender and soft Extremities: trace edema and no cyanosis Skin: No rash or subcu nodules Objective Data Vital Signs Vital Signs: Vital Signs - 24 hr 06/05/20 11:45 06/05/20 12:00 06/05/20 12:15 Temperature Pulse Rate 77 76 90 Respiratory Rate Blood Pressure 98/50 L 105/50 L 101/41 L Pulse Oximetry 06/05/20 12:30 06/05/20 12:45 06/05/20 13:00 Temperature Pulse Rate 73 78 78 Respiratory Rate Blood Pressure 102/50 L 89/48 L 102/58 L Pulse Oximetry 06/05/20 13:15 06/05/20 13:21 06/05/20 13:25 Temperature 36.6 C Pulse Rate 81 81 80 Respiratory Rate 18 Blood Pressure 92/48 L 102/49 L 112/48 L Pulse Oximetry 06/05/20 14:00 06/05/20 22:00 06/06/20 05:59 Temperature 36.6 C 36.4 C 36.2 C L Pulse Rate 87 85 80 Respiratory Rate 20 20 20 Blood Pressure 102/28 L 118/46 L 113/48 L Pulse Oximetry 99 100 100 06/06/20 08:35 06/06/20 08:58 06/06/20 09:00 Temperature 36.6 C Pulse Rate 90 93 82 Respiratory Rate 18 Blood Pressure 120/55 L 118/59 L 125/69 Pulse Oximetry 06/06/20 09:15 06/06/20 09:30 06/06/20 09:45 Temperature Pulse Rate 92 86 8
[2020-06-06 11:53] LABS: Albumin Level 3.1 g/dL (3.5-5.1); Blood Urea Nitrogen 26 mg/dL (7-17); Carbon Dioxide 31 mmol/L (22-30); Chloride 97 mmol/L (98-107); Estimated CRCL calculation 16 ml/min; Estimated Glomerular Filt Rate 16; Glucose 191 mg/dL (65-105); Phosphorus 2.8 mg/dL (2.5-4.5); Potassium 3.6 mmol/L (3.4-5.0); Sodium 136 mmol/L (137-145)
[2020-06-06] MEDS: BUMETANIDE 1 MG TABLET PO (13:04)
[2020-06-06] MEDS: FAMOTIDINE 20 MG TABLET PO (13:04)
[2020-06-06] MEDS: TAMSULOSIN HCL 0.4 MG CAPSULE PO (13:04)
[2020-06-06] MEDS: ATORVASTATIN 20 MG TABLET PO (13:04)
[2020-06-06] MEDS: lisinopriL 5 MG TABLET PO (13:04)
[2020-06-06] MEDS: CALCIUM ACETATE 667 MG TABLET PO (13:04)
[2020-06-06] MEDS: ISOSORBIDE MONONITRATE 30 MG TAB.ER.24H PO (13:04)
[2020-06-06] MEDS: ASPIRIN 325 MG TABLET PO (13:04)
[2020-06-06] MEDS: EUCERIN CREAM 120 GM JAR 1 APPLIC TOPICAL (13:09)
--- NOTE | 2020-06-06 13:10 | PCOTNOTE ---
Attempted to see patient this pm, however patient declined. Pt refused ADLs and activity out of bed. Pt reported severe pain from hemorrhoids.
[2020-06-06 13:12] LABS: Glucose Point of Care 106 (65-105)
[2020-06-06] MEDS: polyethylene glycoL 3350 17 GM POWD.PACK PO (13:12)
[2020-06-06] MEDS: DOCUSATE SODIUM 100 MG CAPSULE PO (13:12)
--- NOTE | 2020-06-06 13:28 | WPDINFPN2 ---
Progress Note: A&P Assessment and Plan (1) Bacteremia: Code(s): R78.81 - Bacteremia Status: Acute Assessment and Plan: 1. CNSS bacteremia of ? significance. Microbiologic cure. 2. Bioprosthetic AVR, no prosthetic valve endocarditis 3. Mild leukocytosis, resolved today 4. CRF, no symptoms nor signs of fistula infection REC Vanc # 6, no further dosig needed, and need not obtain trough scheduled for later today. Ok discharge to ECF anytime. No JAME needed. Will sign off, thanks Subjective Date/time seen: 06/06/20 13:28 Interval history: no new complaints Exam Narrative: Exam Narrative: afebrile Const: General: no acute distress Eyes: General: appearance normal, both eyes and all related structures Resp: Effort & Inspection: normal respiratory effort Auscultation: clear to auscultation bilaterally Cardio: Rate: regular rate Rhythm: regular rhythm Heart sounds: no gallops and no murmurs GI: Inspection: non-distended GI Palp: Yes Soft to palpation and No Tenderness to palpation present (GI) Objective Data Vital Signs Vital Signs: Vital Signs - 24 hr 06/05/20 14:00 06/05/20 22:00 06/06/20 05:59 Temperature 36.6 C 36.4 C 36.2 C L Pulse Rate 87 85 80 Respiratory Rate 20 20 20 Blood Pressure 102/28 L 118/46 L 113/48 L Pulse Oximetry 99 100 100 06/06/20 08:35 06/06/20 08:58 06/06/20 09:00 Temperature 36.6 C Pulse Rate 90 93 82 Respiratory Rate 18 Blood Pressure 120/55 L 118/59 L 125/69 Pulse Oximetry 06/06/20 09:15 06/06/20 09:30 06/06/20 09:45 Temperature Pulse Rate 92 86 83 Respiratory Rate Blood Pressure 128/62 127/64 118/56 L Pulse Oximetry 06/06/20 10:15 06/06/20 10:30 06/06/20 10:45 Temperature Pulse Rate 80 75 92 Respiratory Rate Blood Pressure 114/56 L 111/50 L 126/59 L Pulse Oximetry 06/06/20 11:00 06/06/20 11:15 06/06/20 11:30 Temperature Pulse Rate 88 80 80 Respiratory Rate Blood Pressure 128/63 115/56 L 118/54 L Pulse Oximetry 06/06/20 11:45 06/06/20 12:00 06/06/20 12:15 Temperature Pulse Rate 81 82 89 Respiratory Rate Blood Pressure 108/52 L 113/55 L 110/59 L Pulse Oximetry 06/06/20 12:30 06/06/20 12:45 Temperature 36.6 C Pulse Rate 88 83 Respiratory Rate 18 Blood Pressure 115/54 L 112/53 L Pulse Oximetry Intake/Output Intake/Output: Intake & Output 06/03/20 06/04/20 06/05/20 06/06/20 23:59 23:59 23:59 23:59 Intake Total 970 1220 1080 360 Output Total 600 1750 2100 Balance 370 1556 -500 -6307 Meds/Results Medications: Active Medications Generic Name Dose Route Start Last Admin Trade Name Freq PRN Reason Stop Dose Admin Acetaminophen 650 mg 05/31/20 05:15 06/05/20 20:04 Tylenol Tablet PO 650 mg Q4H PRN Administration Pain or Fever Albuterol 2.5 mg 05/31/20 08:39 Albuterol Sulf Neb 2.5mg/0.5ml INHALATION Q4H PRN Wheezing Aspirin 325 mg 06/01/20 08:00 06/06/20 13:04 Aspirin PO 325 mg DAILY@0800 CYNTHIA Administration Atorvastatin Calcium 20 mg 05/31/20 09:00 06/06/20 13:04 Lipitor PO 20 mg DAILY CYNTHIA Administration Bisacodyl 5 mg 05/31/20 08:39 Dulcolax Tab PO QAM PRN Constipation Bumetanide 1 mg 05/31/20 09:00 06/06/20 13:04 Bumex Po PO 1 mg BID CYNTHIA Administration Calcium Acetate 667 mg 05/31/20 09:00 06/06/20 13:12 Phoslo PO Not Given TID CYNTHIA Dextrose 12.5 gm 05/31/20 07:31 Dextrose 50% Syringe IV PUSH PRN PRN Hypoglycemia Protocol Docusate Sodium 100 mg 05/31/20 09:00 06/06/20 13:12 Colace Capsule PO 100 mg Q12HR CYNTHIA Administration Famotidine 20 mg 05/31/20 09:00 06/06/20 13:04 Pepcid PO 20 mg Q12HR CYNTHIA Administration Glucagon 1 mg 05/31/20 07:31 Glucagon For Inj IM PRN PRN Hypoglycemia Protocol Glucose 15 gm 05/31/20 07:31 Glutose 15 PO PRN PRN Hypoglycemia Protocol Hydrocorti
--- NOTE | 2020-06-06 14:00 | PM.DS ---
DS: Admitting Diagnosis Admitting Diagnosis Admitting Diagnosis: Other fluid overload DS: Discharge Diagnosis Discharge Diagnosis (1) Bacteremia: Code(s): R78.81 - Bacteremia Status: Acute Assessment and Plan: She had positive blood cultures with coag negative staphylococcus x2. She was seen by ID and started on Vancomycin on 06/01/20. She has a history of bioprosthetic AVR and apparent left IJ CVC. Echo did not reveal evidence of vegetations. She was afebrile with VSS and minimal leukocytosis which resolved. She completed a course of vancomycin during her stay. Repeat blood cultures were negative, therefore no further intervention was needed. (2) Acute UTI: Code(s): N39.0 - Urinary tract infection, site not specified Status: Ruled-out Assessment and Plan: UA was suspicious for UTI, however UCx negative. 3 doses of Rocephin were given. (3) Urinary retention: Code(s): R33.9 - Retention of urine, unspecified Status: Acute Assessment and Plan: She had issues with urinary retention during her stay and bladder scan showed evidence of >500 cc urine in bladder. She was initially straight cathed with good urine output, however, she developed retention issues again and a [place]thing[place] catheter was placed. She was started on Flomax. It has been recommended to attempt a voiding trial in 1 week at [facility]. If patient is unable to void, she will need urology referral. (4) Constipation: Qualifiers: Constipation type: other constipation type Qualified Code(s): K59.09 - Other constipation Code(s): K59.00 - Constipation, unspecified Status: Acute Assessment and Plan: She complained of abdominal pain and constipation, despite having had several documented bowel movements. She is on an adequate bowel regimen at home which she will continue. (5) End stage renal disease: Code(s): N18.6 - End stage renal disease Status: Chronic Assessment and Plan: She receives hemodialysis on TTS schedule. She had apparently missed a dialysis appointment due to transportation issues. She was unable to get dialysis on 06/04 due to issues with graft access, therefore she had dialysis on 06/05 and 06/06 in order to resume her regular schedule. She will continue her TTS schedule. She was seen in consultation by Dr. Zarate during her stay and her renal function was monitored. (6) Volume overload: Qualifiers: Hypervolemia type: unspecified Qualified Code(s): E87.70 - Fluid overload, unspecified Code(s): E87.70 - Fluid overload, unspecified Status: Acute Assessment and Plan: Likely secondary to missed dialysis. She became euvolemic. She will continue dialysis and diuretic therapy. (7) Elevated troponin: Code(s): R79.89 - Other specified abnormal findings of blood chemistry Status: Acute Assessment and Plan: Troponins mildly elevated, likely secondary to ESRD. In fact, levels seemed improved compared to baseline. ACS was not suspected. She did not have chest pain. 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 Blood sugars were fairly well controlled during stay. (9) Congestive heart failure: Onset Date: ~12/2019 Qualifiers: Heart failure type: other Qualified Code(s): I50.9 - Heart failure, unspecified
[2020-06-06] MEDS: WITCH HAZEL 40 PADS 1 PAD TOPICAL (16:55)
== END 2020-06-06 17:03 | DRG 291 ==
LOC: ANHED 05:23 → ANHIMU 05:27 → ANH2MED 18:59
PROVIDERS: Internal Medicine Nephrology; Physician Assistant; Admitting Provider Family Medicine; Emergency Provider Emergency Medicine; PCP Internal Medicine; Visit Provider Physician Assistant
DX: I13.2 Hypertensive heart and chronic kidney disease with heart failure and with stage 5 chronic kidney disease, or end stage renal disease (principal); I50.43 Acute on chronic combined systolic (congestive) and diastolic (congestive) heart failure; N18.6 End stage renal disease; R78.81 Bacteremia; N39.0 Urinary tract infection, site not specified; I69.351 Hemiplegia and hemiparesis following cerebral infarction affecting right dominant side; Z99.2 Dependence on renal dialysis; K59.00 Constipation, unspecified; R79.89 Other specified abnormal findings of blood chemistry; E11.22 Type 2 diabetes mellitus with diabetic chronic kidney disease; D63.1 Anemia in chronic kidney disease; I72.8 Aneurysm of other specified arteries; J44.9 Chronic obstructive pulmonary disease, unspecified; Z99.81 Dependence on supplemental oxygen; I35.0 Nonrheumatic aortic (valve) stenosis; I25.10 Atherosclerotic heart disease of native coronary artery without angina pectoris; Z95.1 Presence of aortocoronary bypass graft; M19.90 Unspecified osteoarthritis, unspecified site
CPT/HCPCS: 36415; 51701; 71045; 74176; 80053; 80069; 80202; 81001; 83605; 83690; 83735; 83880; 84484; 85025; 85027; 86706; 87040; 87077; 87086; 87186; 87340; 93005; 93306; 96365; 96366; 96375; 96376; 97110; 97161; 97165; 97535; 99285; A9270; G0257; G0378; J0696; J1644; J1815; J2270; J2405; J3370; J7030; J7040; Q4081; Q5106; Q9957

== ENCOUNTER 2020-07-10 11:24 | Outpatient (CLI) | payer MEDICARE, MEDICAID, SELFPAY ==
--- NOTE | ~2020-07-10 | XR_ITS ---
EXAMINATION: XR chest 2V DATE: 07/10/2020 11:59 INDICATION: 2 weeks of cough TECHNIQUE: frontal and lateral views of the chest were obtained. COMPARISON: Chest radiograph dated 05/31/2020 FINDINGS: Opacities in the bilateral lower lung zones consistent with small left and [id number] right pl eural effusions with associated atelectasis and/or pneumonia. No significant interval change accounti ng for slight change in positioning of the effusions. No pulmonary edema or pneumothorax. Cardiomegal y. Median sternotomy wires and mediastinal surgical clips are seen, likely from prior coronary artery bypass grafting. Aortic valve repair. Thoracic kyphosis with severe spondylosis. IMPRESSION: 1. No significant interval change in small left and [id number] right pleural effusions with as sociated bibasilar atelectasis and/or pneumonia, right greater than left. 2. Cardiomegaly. Reviewed, dictated and finalized at location [facility]. IMPRESSION: 1. No significant interval change in small left and [id number] right ple ural effusions with associated bibasilar atelectasis and/or pneumonia, right gr eater than left. 2. Cardiomegaly.
== END 2020-07-10 11:25 | disposition home or self-care (01) ==
PROVIDERS: PCP Internal Medicine; Visit Provider Nurse Practitioner
DX: R05 Cough (principal); I51.7 Cardiomegaly
CPT/HCPCS: 71046

== ENCOUNTER 2020-12-01 06:23 | Inpatient (IN) | payer MEDICARE, MEDICAID, SELFPAY ==
[2020-12-01] VITALS (33 sets, daily range): BP systolic 98–136; BP diastolic 41–68; PULSE 84–108; RESP 20–38; TEMP 36–37.1; O2SAT 95–100; BMI 29.8
--- NOTE | ~2020-12-01 | XR_ITS ---
EXAMINATION: XR chest 2V DATE: 12/01/2020 07:06 INDICATION: Midsternal chest pain TECHNIQUE: frontal and lateral views of the chest were obtained. COMPARISON: Chest radiograph dated 07/10/2020 FINDINGS: Similar pattern of opacities at the lung bases with blunting at the costophrenic angles and posterior sulci consistent with small bilateral pleural effusions, right greater than left with associated ate lectasis and/or pneumonia. Mildly increased interstitial pattern at the right lower lung zone and a f ew Jimmy B lines at the lateral left lower lung zone consistent with minimal pulmonary edema. No pne umothorax. Cardiomegaly. Median sternotomy wires, ostial markers and mediastinal surgical clips consi stent with prior coronary artery bypass grafting. Vascular stenting at the proximal right upper arm. IMPRESSION: 1. Small bilateral pleural effusions. 2. Bibasilar atelectasis, pneumonia, minimal pulmonary edema or some combination thereof. 3. Cardiomegaly. Reviewed, dictated and finalized at location [facility] [place] IMPRESSION: 1. Small bilateral pleural effusions. 2. Bibasilar atelectasis, pneumonia, minimal pulmonary edema or some combinatio n thereof. 3. Cardiomegaly.
--- NOTE | 2020-12-01 06:31 | ECG_ITS ---
Measurements Intervals [place] Rate: 107 P: 74 NH: 167 QRS: -47 QRSD: 164 T: 89 QT: 385 QTc: 514 Interpretive Statements SINUS TACHYCARDIA POSSIBLE LEFT ATRIAL ENLARGEMENT LEFT AXIS DEVIATION BORDERLINE AV CONDUCTION DELAY LEFT BUNDLE BRANCH BLOCK BASELINE ARTIFACT- I, II, AVR, AVL, AVF, V1-V2, V6 ABNORMAL ECG Electronically Signed On 12-01-2020 8:07:24 SCIENTIFIC LINGUIST by Simon Malave D.O.
--- NOTE | 2020-12-01 07:07 | ED.CHESTPAIN ---
HPI - Chest Pain General Chief Complaint: Chest Pain Stated Complaint: chest pain Time Seen by Provider: 12/01/20 07:07 History of Present Illness HPI narrative: 70 yo female w/ h/o COPD on home O2, ESRD on dialysis presents to the ED for chest pain. She reports that she went to have dialysis this morning and was sent here instead due to her chest pain. She describes it as moderate substernal pressure. It lasted about 20 minutes and resolved spontaneously. She says that she It was associated with SOB. No fever, chills, cough, nausea, vomiting. Related Data Home Medications Medication Instructions Recorded Confirmed melatonin 3 mg PO HS PRN 05/16/20 12/01/20 trazodone 50 mg PO HS 05/16/20 12/01/20 bumetanide 1 mg PO BID 12/01/20 12/01/20 Allergies Allergy/AdvReac Type Severity Reaction Status Date / Time Iodinated Contrast Media Allergy Severe Loss of Verified 12/01/20 06:48 Consciousness Contrast Media Allergy Severe Loss of Uncoded 12/01/20 06:48 Consciousness Review of Systems Review of Systems: All systems reviewed & are unremarkable except as noted in HPI and below Constitutional: Constitutional: Denies body ache(s) and Denies chills Eyes: Eyes: Reports no additional eye complaints ENT: Reports nasal congestion Cardiovascular: Cardiovascular: Reports chest pain Respiratory: Respiratory: Reports chest congestion and Reports dyspnea Gastrointestinal: Gastrointestinal: Denies abdominal pain and Denies nausea Neurologic: Denies confusion and Denies weakness [facility] Past Medical History Medical History (Updated 12/01/20 @ 14:05 by Micheal Costa MD) Aortic valve stenosis Echocardiogram in December 2019 showed at least mild bioprosthetic aortic valve stenosis with an aortic valve area of 1.4 centimeter squared. Asthma Cerebrovascular accident (~2013) Following coronary artery bypass grafting in 2013, with mild right hand weakness. Chronic anemia Chronic kidney disease, stage 5 GFR in December 2019 was around 13. She does have right upper extremity fistula as she nears dialysis. Chronic obstructive pulmonary disease Patient is a lifelong nonsmoker, and this diagnosis is poorly documented in her electronic medical records. Congestive heart failure (~12/2019) Echocardiogram was a technically difficult study with limited views. Left ventricular systolic function was mildly reduced with an estimated ejection fraction of 50 to 55%, moderately increased left ventricular wall thickness, left ventricular septal wall motion abnormality related to bundle branch block, and grade 1 diastolic dysfunction. Coronary artery disease Status post three-vessel CABG in 2013 done at [facility]. Diverticulitis Essential hypertension Hyperlipidemia Ischemic cardiomyopathy Patient previously declined ICD went ejection fraction was much lower (recent EF of 50 to 55% on echocardiogram done in December 2019). Left bundle branch block Osteoarthritis Pseudomyxoma peritonei Shoulder fracture, left Surgically constructed arteriovenous fistula Type 2 diabetes mellitus Surgical History Surgical History History of aortic valve replacement with porcine valve History of bilateral cataract extraction History of exploratory laparotomy (~09/2016) Exploratory laparotomy with drainage of pelvic and right subphrenic abscesses with cultures growing Klebsiella pneumonia and Bacteroides fragilis. Suspected to be caused from perforated bowel. History of three vessel coronary artery bypass (~2013) GONZALEZ to LAD, saphenous vein to diagonal, saphenous vein to right posterior descending artery. Done at [facility]. Status post creation of arteriovenous fistula Right upper extremity. Family History Family History Mother Diabetes mellitus Family history of diabetes mellitus in first deg
[2020-12-01 07:41] LABS: Basophils Absolute Auto 0.1 K/mm3 (0.0-0.1); Basophils Percent Auto 0.5 % (0.2-1.2); Eosinophils Absolute Auto 0.5 K/mm3 (0-0.3); Eosinophils Percent Auto 3.6 % (0-4.4); Hematocrit 35.7 % (37.0-47.0); Hemoglobin 10.8 g/dL (12.0-15.0); Immature Granulocyte Absolute 0.06 K/mm3 (0.00-0.031); Immature Granulocyte Percent A 0.4 % (0-0.5); Lymphocytes Absolute Auto 2.08 K/mm3 (0.9-3.2); Lymphocytes Percent Auto 14.9 % (18.3-44.2); Mean Corpuscular HGB Conc 30.3 g/dl (32-36); Mean Corpuscular Hemoglobin 29.6 pg (26-34); Mean Corpuscular Volume 97.8 fl (80-100); Mean Platelet Volume 11.1 fl (7.4-10.4); Monocytes Percent Auto 6.9 % (2.6-8.5); Neutrophils Absolute Auto 10.3 K/mm3 (1.3-6.7); Neutrophils Percent Auto 73.7 % (45.5-73.1); Platelet Count Result 318 k/mm3 (150-375); Red Blood Count 3.65 M/mm3 (4.2-5.4); Red Cell Distribution Width 14.1 % (11.5-14.5)
[2020-12-01 07:55] LABS: INR 0.9; Prothrombin Time 12.9 Seconds (11.1-14.7)
[2020-12-01 07:58] LABS: Anion Gap 13 mmol/L (8-16); Blood Urea Nitrogen 63 mg/dL (7-17); Calcium 8.2 mg/dL (8.4-10.2); Carbon Dioxide 22 mmol/L (22-30); Chloride 105 mmol/L (98-107); Estimated CRCL calculation 8 ml/min; Estimated Glomerular Filt Rate 7; Glucose 197 mg/dL (65-105); Sodium 140 mmol/L (137-145)
[2020-12-01 08:02] LABS: Partial Thromboplastin Time 22.9 SECONDS (22.3-36.8)
[2020-12-01] MEDS: INSULIN HUMAN REGULAR (*BKC) 100 UNITS/ML 10 UNITS IV PUSH (08:39)
[2020-12-01] MEDS: DEXTROSE 50% 25 GM/50 ML SYRINGE IV PUSH (08:42)
[2020-12-01] MEDS: ALBUTEROL SULFATE NEB 2.5 MG/0.5 ML INH 10 MG INHALATION (08:43)
--- NOTE | 2020-12-01 09:43 | ADMGEN ---
This patient, Martha Reid, was admitted to IMU Room 214-01 at 0938 on 12/01/20. Patient/family oriented to hospital policies and general routines including ID bracelet, bed and alarms, visiting hours, pain management, procedures, bathroom and other care routines, personal items, smoking policy, room service/diet, and visiting hours. Information on how to activate the Rapid Response Team has been discussed. Patient/Family are encouraged to report perceived risks to care and to ask questions if they do not understand what they are told or what they should do.
--- NOTE | 2020-12-01 12:00 | PC.NURSE ---
Patient adamantly refusing for more labs to be drawn. Patient was approached by the enterprise mobility architect, Grecia Cruz RN, and myself (Donya Joseph RN) in several attempts to educate the patient and change her mind, but the patient still refuses for more labs to be drawn. Will continue to monitor and reapproach.
--- NOTE | 2020-12-01 12:44 | PM.CNNEP ---
Assessment and Plan Assessment and plan (1) End stage renal disease: Code(s): N18.6 - End stage renal disease Status: Chronic Assessment and Plan: HD today due to holiday schedule and then resume T/T/S next week follow electrolytes, volume status, and clearance (2) Hyperkalemia: Code(s): E87.5 - Hyperkalemia Status: Acute Assessment and Plan: should correct with dialysis today follow repeat values (3) Chest pain: Code(s): R07.9 - Chest pain, unspecified Status: Acute Assessment and Plan: possibly more related to fluid overload(?) follow troponins follow symptoms post-dialysis (4) Pneumonia: Code(s): J18.9 - Pneumonia, unspecified organism Status: Acute Assessment and Plan: some suggesting by imaging follow blood cultures on antibiotics (5) Volume overload: Qualifiers: Hypervolemia type: unspecified Qualified Code(s): E87.70 - Fluid overload, unspecified Code(s): E87.70 - Fluid overload, unspecified Status: Acute Assessment and Plan: as noted by fluid gain as per dry weight and CXR findings fluid removal with HD today follow respiratory status (6) Anemia: Qualifiers: Anemia type: due to chronic kidney disease Chronic kidney disease stage: on chronic dialysis Qualified Code(s): N18.6 - End stage renal disease; D63.1 - Anemia in chronic kidney disease; Z99.2 - Dependence on renal dialysis Code(s): D64.9 - Anemia, unspecified Status: Acute Assessment and Plan: H/H in range for ESRD no need for Epogen at this time follow trend of H/H (7) Hypertension: Code(s): I10 - Essential (primary) hypertension Status: Acute Assessment and Plan: reasonable control at this time follow trend of hemodynamics (8) Diabetes: Code(s): E11.9 - Type 2 diabetes mellitus without complications Status: Acute Assessment and Plan: follow acchecks continue glycemic control Will continue to follow. History of Present Illness Reason for Consult Consult date: 12/01/20 Reason for consult: end stage renal disease Chief Complaint Chief complaint: Chest pain, hyperkalemia, fluid overload, pneumoni History of Present Illness Narrative: The patient is a 70-year-old female with past medical history who presented to [facility] Emergency room with complaints of chest pain. The patient presented to her outpatient dialysis center today for her scheduled dialysis treatment due to the holiday schedule. However, when the dialysis nurses attempted to start her dialysis treatment, she stated that she was having chest pain. Due to her ongoing chest pain, she became somewhat difficult to calm down as the dialysis nursing staff attempted to try and assess whether not she was stable enough for her dialysis treatment. She would not keep her protective mask gone and then stated that she was getting short of breath. At this point, 911 was called and she was subsequently transferred to the emergency room from her outpatient dialysis center. Workup and evaluation emergency room demonstrated the patient to be hemodynamically stable but with the a for mentioned complaints of chest pain. She described the chest pain as moderate in intensity and localized to her substernal area and described as a pressure sensation. It had been going on for about 20 minutes but by the time of her arrival to the ER at seem to had spontaneously resolved. As already mentioned, the chest pain was associated with her shortness of breath but she has some chronic shortness of breath even at baseline. She denies any other systemic symptoms with regard to fevers, chills, cough, nausea, vomiting, palpitations, dizziness, or lightheadedness. Routine blood tests demonstrated labs consistent with her known history of end-stage renal disease although her potassium level was
--- NOTE | 2020-12-01 15:48 | PM.IMHP ---
H&P: HPI History of Present Illness Date/Time: 12/01/20 15:48 Chief Complaint: Chest pain Narrative: Martha Reid is a 70 year old female with history of end-stage renal disease on hemodialysis Wednesday, and Wednesday due to holidays patient did not have a dialysis on Wednesday and went for dialysis today at the dialysis center patient complained of chest pain and patient was sent to emergency department for further evaluation, upon arrival her potassium was 6 patient was given dextrose and insulin, patient is seen by her Metal Products Fabricator Assembler and plan is to have dialysis today, also upon arrival patient is slightly elevated tropes it is below a her baseline 0.040 as patient normally has tropes in 0.1 without acute coronary syndrome, however patient denies chest pain currently and refusing any more labs. Patient states is feeling much better, however patient also denies any cough shortness of breath fever or chills patient is being tested for COVID and isolated Review of Systems Review of Systems: All systems reviewed & are unremarkable except as noted in HPI and below PMFSH Past Medical History Medical History (Updated 12/01/20 @ 14:05 by Micheal Costa MD) Aortic valve stenosis Echocardiogram in December 2019 showed at least mild bioprosthetic aortic valve stenosis with an aortic valve area of 1.4 centimeter squared. Asthma Cerebrovascular accident (~2013) Following coronary artery bypass grafting in 2013, with mild right hand weakness. Chronic anemia Chronic kidney disease, stage 5 GFR in December 2019 was around 13. She does have right upper extremity fistula as she nears dialysis. Chronic obstructive pulmonary disease Patient is a lifelong nonsmoker, and this diagnosis is poorly documented in her electronic medical records. Congestive heart failure (~12/2019) Echocardiogram was a technically difficult study with limited views. Left ventricular systolic function was mildly reduced with an estimated ejection fraction of 50 to 55%, moderately increased left ventricular wall thickness, left ventricular septal wall motion abnormality related to bundle branch block, and grade 1 diastolic dysfunction. Coronary artery disease Status post three-vessel CABG in 2013 done at [facility]. Diverticulitis Essential hypertension Hyperlipidemia Ischemic cardiomyopathy Patient previously declined ICD went ejection fraction was much lower (recent EF of 50 to 55% on echocardiogram done in December 2019). Left bundle branch block Osteoarthritis Pseudomyxoma peritonei Shoulder fracture, left Surgically constructed arteriovenous fistula Type 2 diabetes mellitus Surgical History Surgical History History of aortic valve replacement with porcine valve History of bilateral cataract extraction History of exploratory laparotomy (~09/2016) Exploratory laparotomy with drainage of pelvic and right subphrenic abscesses with cultures growing Klebsiella pneumonia and Bacteroides fragilis. Suspected to be caused from perforated bowel. History of three vessel coronary artery bypass (~2013) GONZALEZ to LAD, saphenous vein to diagonal, saphenous vein to right posterior descending artery. Done at [facility]. Status post creation of arteriovenous fistula Right upper extremity. Family History Family History Mother Diabetes mellitus Family history of diabetes mellitus in first degree relative Patient's mother is Sibling Family history of cardiovascular disease Family history of liver disease Patient's sister is in good health Family history of heart disease in male family member before age 55 Patient's brother is Diabetes mellitus Acute myocardial infarction Family history of kidney disease Father Family history of cardiovascular disease Family history of heart disease
[2020-12-01 16:45] LABS: Troponin I 0.037 ng/mL (0.000-0.034)
[2020-12-01 18:08] LABS: Glucose Point of Care 167 (65-105)
[2020-12-01] MEDS: CALCIUM ACETATE 667 MG TABLET PO (18:28)
[2020-12-01] MEDS: BUMETANIDE 1 MG TABLET PO (18:28)
[2020-12-01] MEDS: INSULIN GLARGINE (*BKC) 100 UNITS/ML SUB-Q (18:28)
[2020-12-01] MEDS: MIDODRINE HCL 10 MG TABLET PO (18:28)
[2020-12-01 20:47] LABS: SARS-CoV-2 RNA PCR Negative
[2020-12-01] MEDS: FAMOTIDINE 20 MG TABLET PO (21:40)
[2020-12-01] MEDS: HEPARIN SODIUM 5,000 UNITS/ML VIAL 5000 UNITS SUB-Q (21:40)
[2020-12-02] VITALS: BP 100/52; PULSE 87; PULSE 89; RESP 18; TEMP 36.4; O2SAT 97
[2020-12-02 02:00] VITALS: PULSE 84
[2020-12-02 04:00] VITALS: BP 90/45; PULSE 74; PULSE 88; RESP 18; TEMP 36.1; O2SAT 98
[2020-12-02 06:00] VITALS: PULSE 74
[2020-12-02 08:00] VITALS: BP 111/47; PULSE 83; PULSE 84; RESP 16; TEMP 36.8; O2SAT 100
[2020-12-02 08:17] LABS: Glucose Point of Care 118 (65-105)
[2020-12-02] MEDS: lisinopriL 5 MG TABLET PO (08:36)
[2020-12-02] MEDS: BUMETANIDE 1 MG TABLET PO (08:36)
[2020-12-02] MEDS: MIDODRINE HCL 10 MG TABLET PO (08:36)
[2020-12-02] MEDS: CALCIUM ACETATE 667 MG TABLET PO (08:36)
[2020-12-02] MEDS: ATORVASTATIN 20 MG TABLET PO (08:37)
[2020-12-02] MEDS: FAMOTIDINE 20 MG TABLET PO (08:37)
[2020-12-02] MEDS: ISOSORBIDE MONONITRATE 30 MG TAB.ER.24H PO (08:37)
[2020-12-02] MEDS: ASPIRIN 325 MG TABLET PO (08:37)
[2020-12-02] MEDS: HEPARIN SODIUM 5,000 UNITS/ML VIAL 5000 UNITS SUB-Q (08:37)
--- NOTE | 2020-12-02 09:47 | PM.DS ---
DS: Admitting Diagnosis Admitting Diagnosis Admitting Diagnosis: Chest pain DS: Discharge Diagnosis Discharge Diagnosis (1) Chest pain: Code(s): R07.9 - Chest pain, unspecified Status: Acute Assessment and Plan: Martha Reid is a 70 year old female with history of end-stage renal disease on hemodialysis Wednesday, and Wednesday due to holidays patient did not have a dialysis on Wednesday and went for dialysis today at the dialysis center patient complained of chest pain and patient was sent to emergency department for further evaluation, upon arrival her potassium was 6 patient was given dextrose and insulin, patient is seen by her Photocomposing Keyboard Operator and plan is to have dialysis today, also upon arrival patient is slightly elevated tropes it is below a her baseline 0.040 as patient normally has tropes in 0.1 without acute coronary syndrome, however patient denies chest pain currently and refusing any more labs. Patient states is feeling much better, however patient also denies any cough shortness of breath fever or chills patient is being tested for COVID and isolated DS: Summary Hospital Course Reason for hospitalization: Chief Complaint: Chest pain Narrative: Martha Reid is a 70 year old female with history of end-stage renal disease on hemodialysis Wednesday, and Wednesday due to holidays patient did not have a dialysis on Wednesday and went for dialysis today at the dialysis center patient complained of chest pain and patient was sent to emergency department for further evaluation, upon arrival her potassium was 6 patient was given dextrose and insulin, patient is seen by her Photocomposing Keyboard Operator and plan is to have dialysis today, also upon arrival patient is slightly elevated tropes it is below a her baseline 0.040 as patient normally has tropes in 0.1 without acute coronary syndrome, however patient denies chest pain currently and refusing any more labs. Patient states is feeling much better, however patient also denies any cough shortness of breath fever or chills patient is being tested for COVID and isolated Hospital Course: Patient with end-stage renal disease on hemodialysis missed dialysis due to holidays patient was seen by drag down and scheduled dialysis today, patient is clinically stable will discharge patient today will follow-up with her regular schedule of dialysis as outpatient, clinically stable will discharge the patient home today, patient COVID test was negative Status at Discharge Functional status at discharge: uses cane/walker Overall status at discharge: patient is back to baseline Time Spent with Patient Time attestation: Total time spent providing and/or coordinating discharge services: Time spent: Less than 30 minutes Exam Narrative: Exam Narrative: Moderately obese Patient is comfortable, NAD HEENT: eyes are clear and none icteric LUNGS: Normal respiratory efforts ABD: Mildly distended Lower extremities: no edema SKIN: nonjaundiced Neuro: grossly intact normal speech. DS: Data Data Completed and Pending Labs on day of discharge: Labs from last 24 hours 12/02/20 12/01/20 12/01/20 08:11 18:02 15:55 POC Capillary Glucose 118 H 167 H Troponin I 0.037 H* SARS-CoV-2 RNA (RT-PCR) 12/01/20 12/01/20 14:30 08:32 POC Capillary Glucose Troponin I Cancelled SARS-CoV-2 RNA (RT-PCR) Negative Discharge Plan Discharge Attending physician on discharge: Shira Long Consulting providers: Liliam Young ; Jacques Johnson ; Simon Malave Discharging Clinician: Shira Long Patient Disposition: Home, Self-Care Activity: as tolerated Diet: renal and low sodium Discharge Instructions: Patient to follow up with her drag down and will have scheduled dialysis, patient to follow up with her primary care provider as soon as possible. Patient Instructions: Antibiotic Form, Heart Failure (GEN), Hyperkalemia (GEN), How To Wash Your Hands (GEN),
[2020-12-02 10:03] VITALS: O2SAT 95
--- NOTE | 2020-12-03 05:56 | WPDCDIQUERY2 ---
CDI Query Clarification Request -Pneumonia has been documented by EDP and nephrology -Ceftriaxone and Zithromax were ordered -No mention of Pneumonia by hospitalist Please clarify if pneumonia was ruled in or ruled out. <Leslie Maradiaga RN - Last Filed: 12/03/20 05:58> Clarified Diagnosis (1) Pneumonia: Code(s): J18.9 - Pneumonia, unspecified organism <Leslie Maradiaga RN - Last Filed: 12/03/20 05:58> Status: Acute <Leslie Maradiaga RN - Last Filed: 12/03/20 05:58> Assessment and Plan: Patient complained of shortness of breath most likely was secondary to volume overload due to missed dialysis,chest x-ray was not was not conclusive for pneumonia, patient did not have any fever and patient COVID test was negative, most likely patient did not have pneumonia <Shira Long MD - Last Filed: 12/20/20 17:58>
== END 2020-12-02 09:45 | disposition home or self-care (01) | DRG 313 ==
LOC: ANHED 07:16 → ANHIMU 09:10
PROVIDERS: Emergency Medicine; Admitting Provider Family Medicine; Emergency Provider Emergency Medicine; PCP Internal Medicine; Visit Provider Family Medicine
DX: R07.9 Chest pain, unspecified (principal); N18.6 End stage renal disease; I13.2 Hypertensive heart and chronic kidney disease with heart failure and with stage 5 chronic kidney disease, or end stage renal disease; J44.0 Chronic obstructive pulmonary disease with (acute) lower respiratory infection; I50.9 Heart failure, unspecified; E11.22 Type 2 diabetes mellitus with diabetic chronic kidney disease; D63.1 Anemia in chronic kidney disease; Z20.822 Contact with and (suspected) exposure to COVID-19; E87.70 Fluid overload, unspecified; E87.5 Hyperkalemia; Z99.2 Dependence on renal dialysis; Z99.81 Dependence on supplemental oxygen; I35.0 Nonrheumatic aortic (valve) stenosis; I25.10 Atherosclerotic heart disease of native coronary artery without angina pectoris; I25.5 Ischemic cardiomyopathy; E78.5 Hyperlipidemia, unspecified; Z95.2 Presence of prosthetic heart valve; Z95.1 Presence of aortocoronary bypass graft; Z98.42 Cataract extraction status, left eye; Z98.41 Cataract extraction status, right eye; Z79.4 Long term (current) use of insulin; Z79.82 Long term (current) use of aspirin
CPT/HCPCS: 36415; 71046; 80048; 84484; 85025; 85610; 85730; 87040; 87077; 93005; 94640; 96365; 96375; 99285; A9270; C9803; G0257; J0456; J0696; J1100; J1644; J1815; J7030; U0003

== ENCOUNTER 2021-01-24 11:12 | Outpatient (CLI) | payer MEDICARE, MEDICAID, SELFPAY ==
--- NOTE | 2021-01-27 13:24 | WPDSIXMINUTE ---
Six Minute Walk This is a 6 minutes walk test. The test was performed and interpreted in accordance with the 2014 ERS/ATS task force guidelines. The test was preformed on 2 L nasal cannula oxygen which is the patient's home O2 settings. Patient also used a walker. Findings: The patient's 2L oxygen saturation measured by pulse oximetry was 92% and her heart rate was 92 bpm. Patient ambulated for 91 meters and oxygen saturation remained 90 to 98%. Heart rate at the end of the study was 99 bpm. There are no prior studies for comparison.
== END 2021-01-24 11:13 | disposition home or self-care (01) ==
PROVIDERS: PCP Internal Medicine; Visit Provider Internal Medicine
DX: J96.10 Chronic respiratory failure, unspecified whether with hypoxia or hypercapnia (principal)
CPT/HCPCS: 94618

== ENCOUNTER 2021-02-26 12:21 | Outpatient (CLI) | payer MEDICARE, MEDICAID, SELFPAY ==
[2021-02-26 12:50] VITALS: PULSE 76; O2SAT 92
[2021-02-26 12:55] VITALS: PULSE 99; O2SAT 86
[2021-02-26 13:00] VITALS: PULSE 99; O2SAT 88
[2021-02-26 13:05] VITALS: O2SAT 90
[2021-02-26 13:20] VITALS: PULSE 78; O2SAT 92
--- NOTE | 2021-02-26 13:30 | HOMEO2EVAL ---
Home Oxygen Evaluation RC: Home Oxygen (O2) Evaluation Start: 02/26/21 13:25 Freq: Status: Active Protocol: RPE Activity Type Activity Date Activity User E-Sign Co-Sign Detail Recorded Client Recorded Date Recorded By Document 02/26/21 12:50 DJO [email or web address] 02/26/21 13:30 DJO Document 02/26/21 12:55 DJO [email or web address] 02/26/21 13:30 DJO Document 02/26/21 13:00 DJO [email or web address] 02/26/21 13:30 DJO Document 02/26/21 13:05 DJO [email or web address] 02/26/21 13:30 DJO Document 02/26/21 13:20 [email or web address] [email or web address] 02/26/21 13:30 DJO 02/26/21 02/26/21 02/26/21 12:50 12:55 13:00 Home O2 Evaluation Test Phase Resting Exercise Exercise Oxygen Delivery Room Air Room Air Nasal Cannula Oxygen Flow Rate (L/min) 1 Pulse Oximetry (90-100 %) 92 86 L 88 L Pulse Rate (60-100 beats/min) 76 99 99 Activity Tolerance Good Ambulation Distance (feet) Treatment Charges O2 Evaluation - Outpatient 02/26/21 02/26/21 13:05 13:20 Home O2 Evaluation Test Phase Exercise Resting Oxygen Delivery Nasal Cannula Room Air Oxygen Flow Rate (L/min) 2 Pulse Oximetry (90-100 %) 90 92 Pulse Rate (60-100 beats/min) 78 Activity Tolerance Good Ambulation Distance (feet) 750 750 Treatment Charges
== END 2021-02-26 12:22 | disposition home or self-care (01) ==
LOC: ANHPFT 12:25
PROVIDERS: PCP Internal Medicine; Visit Provider Internal Medicine
DX: J96.10 Chronic respiratory failure, unspecified whether with hypoxia or hypercapnia (principal); J96.01 Acute respiratory failure with hypoxia
CPT/HCPCS: 94618

== ENCOUNTER 2021-05-19 06:57 | Outpatient (CLI) | payer MEDICARE, MEDICAID, SELFPAY ==
[2021-05-19 07:47] LABS: Cholesterol 102 mg/dL (0-200); HDL Direct 61 mg/dL; Triglycerides 106 mg/dL (<150)
[2021-05-19 07:55] LABS: Hemoglobin A1C 7.4 % (<5.7)
[2021-05-19 09:03] LABS: LDL Cholesterol Direct < 30 mg/dL
== END 2021-05-19 06:58 | disposition home or self-care (01) ==
PROVIDERS: PCP Internal Medicine; Visit Provider Internal Medicine
DX: E11.42 Type 2 diabetes mellitus with diabetic polyneuropathy (principal); E78.5 Hyperlipidemia, unspecified
CPT/HCPCS: 36415; 80061; 83036

== ENCOUNTER 2021-06-30 13:57 | Emergency (ER) | payer MEDICARE, MEDICAID, SELFPAY ==
[2021-06-30 14:10] VITALS: BP 115/50; PULSE 88; RESP 16; TEMP 36.9; O2SAT 98
[2021-06-30 14:50] VITALS: BP 109/60; PULSE 93; RESP 18; O2SAT 95
[2021-06-30 16:04] VITALS: BP 109/60; PULSE 88; RESP 17; O2SAT 100
== END 2021-06-30 16:06 | disposition left against medical advice (07) ==
PROVIDERS: PCP Internal Medicine
DX: T82.838A Hemorrhage due to vascular prosthetic devices, implants and grafts, initial encounter (principal)
CPT/HCPCS: 99199

== ENCOUNTER 2021-10-08 17:38 | Inpatient (IN) | payer MEDICARE, MEDICAID, SELFPAY ==
[2021-10-08] VITALS (15 sets, daily range): BP systolic 58–99; BP diastolic 34–67; PULSE 90–126; RESP 20–25; TEMP 37.1–37.2; O2SAT 80–97; BMI 25.3
--- NOTE | ~2021-10-08 | XR_ITS ---
EXAMINATION: XR chest port-a-cath/central EXAM DATE: 10/08/2021 18:22 INDICATION: Central line placement, HX NH, HX asthma. TECHNIQUE: Portable AP frontal chest x-ray was obtained. Comparison is made to prior examination from 12/01/2020. FINDINGS: There is cardiomegaly and pulmonary vascular congestion. Small pleural effusions. Sternotom y wires. Aortic valve replacement. Small amount of left lower lobe opacity probably subsegmental atel ectasis. Mild pulmonary edema not excludable. IMPRESSION: 1. No evidence postprocedure pneumothorax. 2. Findings consistent with mild CHF exacerbation. Reviewed, dictated and finalized at location A. MAKER
--- NOTE | ~2021-10-08 | XR_ITS ---
EXAMINATION: XR chest 1V portable DATE: 10/10/2021 05:45 INDICATION: Septic shock. Volume overload. TECHNIQUE: A single frontal view of the chest was obtained. COMPARISON: Chest single view 10/08/2021, chest 2 views 12/01/2020, CT abdomen and pelvis 05/31/2020 FINDINGS: There are small pleural effusions. No pneumonia or pneumothorax. Cardiomegaly is noted. Med benjamin sternotomy wires and mediastinal surgical clips are seen, likely from prior coronary artery bypas s grafting. There are changes of aortic valve replacement. A right internal jugular central venous ca theter is seen with tip in the right atrium. IMPRESSION: 1. Small pleural effusions with worsening on the left. 2. Cardiomegaly. Reviewed, dictated and finalized at location A. NSION ENVELOPE MAKER HAND
--- NOTE | 2021-10-08 17:51 | PC.NURSE ---
Consent obtained from spouse for central line placement
--- NOTE | 2021-10-08 17:52 | ECG_ITS ---
Measurements Intervals [place] Rate: 88 P: 57 WY: 206 QRS: -69 QRSD: 198 T: 116 QT: 471 QTc: 572 Interpretive Statements SINUS RHYTHM WITH FIRST DEGREE AV BLOCK POSSIBLE LEFT ATRIAL ENLARGEMENT LEFT AXIS DEVIATION LEFT BUNDLE BRANCH BLOCK BASELINE ARTIFACT- I, III, AVR, AVL, AVF ABNORMAL ECG Electronically Signed On 10-08-2021 20:15:11 [employer]PER[employer] by Simon Malave D.O.
[2021-10-08 18:02] LABS: Hematocrit 45.7 % (37.0-47.0); Hemoglobin 14.3 g/dL (12.0-15.0); Mean Corpuscular HGB Conc 31.3 g/dl (32-36); Mean Corpuscular Hemoglobin 30.6 pg (26-34); Mean Corpuscular Volume 97.9 fl (80-100); Mean Platelet Volume 9.9 fl (7.4-10.4); Platelet Count Result 169 k/mm3 (150-375); Red Blood Count 4.67 M/mm3 (4.2-5.4); Red Cell Distribution Width 18.6 % (11.5-14.5); White Blood Count 25.4 K/mm3 (4.5-10.0)
[2021-10-08 18:16] LABS: Lactic Acid Reflex 2.9 mmol/L (0.7-2.1)
[2021-10-08 18:18] LABS: Alanine Aminotransferase 40 U/L (4-35); Albumin Level 3.5 g/dL (3.5-5.1); Alkaline Phosphatase 267 U/L (38-126); Anion Gap 14 mmol/L (8-16); Aspartate Amino Transferase 48 U/L (14-36); Bilirubin,Total 0.8 mg/dL (0.2-1.3); Blood Urea Nitrogen 48 mg/dL (7-17); Calcium 9.4 mg/dL (8.4-10.2); Carbon Dioxide 26 mmol/L (22-30); Chloride 99 mmol/L (98-107); Estimated Glomerular Filt Rate 8; Glucose 171 mg/dL (65-110); Potassium 2.9 mmol/L (3.4-5.0); Sodium 139 mmol/L (137-145)
--- NOTE | 2021-10-08 18:19 | PC.NURSE ---
Dr. Jones aware of BP 51/38
[2021-10-08 18:28] LABS: Lymphocytes Absolute Manual 0.76 K/mm3 (1.1-4.5); Monocytes Absolute Manual 2.03 K/mm3 (0.1-0.90); Monocytes Percent Manual 8 % (3-9); Neutrophils Percent Manual 89 % (46-73); Total Cells Counted 100
[2021-10-08 18:31] LABS: Platelet Estimate Adequate (Adequate)
[2021-10-08 18:39] LABS: Prothrombin Time 12.8 Seconds (11.1-14.7)
[2021-10-08] MEDS: NOREPINEPHRINE 8 MG/D5W 250 ML 8 MG/250 ML BAG 9.38 MG IV CONT (18:43)
--- NOTE | 2021-10-08 18:44 | PC.NURSE ---
Pt has maceration to bilateral buttocks with necrotic open wound to left lower buttocks
[2021-10-08 18:45] LABS: NT Pro B Type Natriuretic Pept 24700 pg/mL (5-100); Troponin I 0.178 ng/mL (0.000-0.034)
[2021-10-08] MEDS: SODIUM CHLORIDE 0.9% IV 1,000 ML 999 ML IV CONT (18:46)
--- NOTE | 2021-10-08 19:00 | PC.NURSE ---
Multiple wounds noted to bilateral lower legs, right heel with DTI present, left foot with open wounds as well. Lower leg wounds are weeping serous fluid. Notable odor from wounds present.
--- NOTE | 2021-10-08 19:13 | PC.NURSE ---
Per Dr. Jones, give only 500ml NS at this time. also notified urine has appearance of milk.
[2021-10-08 19:18] LABS: Add Urine Microscopic? YES; Appearance Urine Turbid (Clear); Bilirubin Urine Negative (Negative); Blood Urine 2+ (Negative); Color Urine Yellow (Yellow); Glucose Urine UA 2+ mg/dL (Negative); Ketones Urine Negative (Negative); Leukocyte Esterase Ur 2+ LEU/UL (Negative); Nitrate Urine Negative (Negative); Protein Urine 3+ mg/dL (Negative); Specific Grav Ur 1.016 (1.001-1.035); Urobilinogen Urine Negative mg/dL (<2.0)
[2021-10-08] MEDS: KCL 20 MEQ/SW 100 ML 100 ML 50 MEQ IVPB (19:50)
--- NOTE | 2021-10-08 19:53 | ED.AMS ---
HPI - Altered Mental Status General Chief Complaint: Altered Mental Status Stated Complaint: low bp Time Seen by Provider: 10/08/21 17:46 Source: family and EMS Mode of arrival: EMS Limitations: clinical condition History of Present Illness HPI narrative: 71-year-old with a history of hypertension, diabetes, ESRD on hemodialysis and multiple other medical problems was brought in from home with complaints of altered mental status. Patient who is the main source of history states that patient has been sick for past 1 week has occasional nonproductive cough. Has seen primary this afternoon and was discharged home from the office with oral antibiotic and medication which she has not picked up. Patient after returning home was feeling extremely lethargic and was going in and out of consciousness. So he later called EMS and was brought in here upon arrival patient was very lethargic, and found to be hypotensive. She complained of back pain. As per history no history of fever or chills or chest pain. Denies any nausea or vomiting. Related Data Home Medications Medication Instructions Recorded Confirmed melatonin 3 mg PO HS PRN 05/16/20 10/08/21 Allergies Allergy/AdvReac Type Severity Reaction Status Date / Time Iodinated Contrast Media Allergy Severe Loss of Verified 10/08/21 10:10 Consciousness Contrast Media Allergy Severe Loss of Uncoded 10/08/21 10:10 Consciousness Review of Systems Review of Systems: ROS unobtainable: Yes unobtainable due to medical condition PMFSH Past Medical History Medical History Aortic valve stenosis Echocardiogram in December 2019 showed at least mild bioprosthetic aortic valve stenosis with an aortic valve area of 1.4 centimeter squared. Asthma Carcinoma of appendix Cerebrovascular accident (~2013) Following coronary artery bypass grafting in 2013, with mild right hand weakness. Chronic anemia Chronic kidney disease, stage 5 GFR in December 2019 was around 13. She does have right upper extremity fistula as she nears dialysis. Chronic obstructive pulmonary disease Patient is a lifelong nonsmoker, and this diagnosis is poorly documented in her electronic medical records. Congestive heart failure (~12/2019) Echocardiogram was a technically difficult study with limited views. Left ventricular systolic function was mildly reduced with an estimated ejection fraction of 50 to 55%, moderately increased left ventricular wall thickness, left ventricular septal wall motion abnormality related to bundle branch block, and grade 1 diastolic dysfunction. Coronary artery disease Status post three-vessel CABG in 2013 done at [facility]. Diverticulitis Essential hypertension Hyperlipidemia Ischemic cardiomyopathy Patient previously declined ICD went ejection fraction was much lower (recent EF of 50 to 55% on echocardiogram done in December 2019). Left bundle branch block Osteoarthritis Pseudomyxoma peritonei Shoulder fracture, left Surgically constructed arteriovenous fistula Type 2 diabetes mellitus Surgical History Surgical History History of aortic valve replacement with porcine valve History of bilateral cataract extraction History of exploratory laparotomy (~09/2016) Exploratory laparotomy with drainage of pelvic and right subphrenic abscesses with cultures growing Klebsiella pneumonia and Bacteroides fragilis. Suspected to be caused from perforated bowel. History of three vessel coronary artery bypass (~2013) GONZALEZ to LAD, saphenous vein to diagonal, saphenous vein to right posterior descending artery. Done at [facility]. Hx of heart surgery Status post creation of arteriovenous fistula Right upper extremity. Family History Family History Mother Diabetes mellitus Family history
[2021-10-08] MEDS: SODIUM CHLORIDE 0.9% IV 1,000 ML 50 ML IV CONT (20:07)
[2021-10-08 21:00] LABS: Reflex Lactic Acid Yes or No Add Lactic
[2021-10-08 21:36] LABS: Lactic Acid 1.6 mmol/L (0.7-2.1)
[2021-10-08] MEDS: VASOPRESSIN INJ 100 UNITS in DEXTROSE 5% 95 ML IV CONT (22:27)
--- NOTE | 2021-10-08 22:34 | ADMGEN ---
This patient, Martha Reid, was admitted to Intensive Care Unit-2. Patient/family oriented to hospital policies and general routines including ID bracelet, bed and alarms, visiting hours, pain management, procedures, bathroom and other care routines, personal items, smoking policy, room service/diet, and visiting hours. Information on how to activate the Rapid Response Team has been discussed. Patient/Family are encouraged to report perceived risks to care and to ask questions if they do not understand what they are told or what they should do.
[2021-10-08] MEDS: ALBUMIN HUMAN 25% 25 GM/100 ML 100 ML IVPB (23:37)
[2021-10-08 23:57] LABS: Troponin I 0.161 ng/mL (0.000-0.034)
[2021-10-09] VITALS (53 sets, daily range): BP systolic 68–110; BP diastolic 46–72; PULSE 100–135; RESP 20–40; TEMP 36.7–38.3; O2SAT 94–99; BMI 25.9
[2021-10-09] MEDS: NOREPINEPHRINE 8 MG/D5W 250 ML 8 MG/250 ML BAG 56.25 MG IV CONT ×2 (00:21→05:06)
--- NOTE | 2021-10-09 00:54 | PM.IMHP ---
H&P: HPI History of Present Illness Date/Time: 10/09/21 00:54 Chief Complaint: Altered mental status Narrative: This is a 71-year-old female with past medical history significant for end-stage renal disease, aortic stenosis status post bioprosthetic valve, systolic and diastolic heart failure, hypertension, type 2 diabetes mellitus insulin dependent, bilateral lower extremity nonhealing ulcers, sacral ulcer. Patient was brought to the emergency room by EMS she had been in to see her primary care physician today after she had been sick for about a week or so according to most of the history has been obtained upon talking to emergency room doctor and medical records. According to he notice altered mental status patient was very lethargic and called EMS upon arrival to emergency room patient was found to have a blood pressure of 50 over 40. At the time of my visit patient was awake and was able to give some history states that she has had poor appetite and having chills and rigors very fatigued and tired. Preliminary workup was significant for WBC of 25,000, creatinine of 5.8, potassium of 2.7 lactic acid of 2.9 a chest x-ray shows some congestive changes. A central line was placed in the emergency room and patient was started on early goal-directed therapy. Patient has been admitted for further management, treatment and evaluation. Review of Systems Review of Systems: Not feeling well for about a week or so chills,fevers, poor appetite, altered mental status. ROS unobtainable: Yes unobtainable due to medical condition and unobtainable due to mental status PMFSH Past Medical History Medical History Aortic valve stenosis Echocardiogram in December 2019 showed at least mild bioprosthetic aortic valve stenosis with an aortic valve area of 1.4 centimeter squared. Asthma Carcinoma of appendix Cerebrovascular accident (~2013) Following coronary artery bypass grafting in 2013, with mild right hand weakness. Chronic anemia Chronic kidney disease, stage 5 GFR in December 2019 was around 13. She does have right upper extremity fistula as she nears dialysis. Chronic obstructive pulmonary disease Patient is a lifelong nonsmoker, and this diagnosis is poorly documented in her electronic medical records. Congestive heart failure (~12/2019) Echocardiogram was a technically difficult study with limited views. Left ventricular systolic function was mildly reduced with an estimated ejection fraction of 50 to 55%, moderately increased left ventricular wall thickness, left ventricular septal wall motion abnormality related to bundle branch block, and grade 1 diastolic dysfunction. Coronary artery disease Status post three-vessel CABG in 2013 done at [facility]. Diverticulitis Essential hypertension Hyperlipidemia Ischemic cardiomyopathy Patient previously declined ICD went ejection fraction was much lower (recent EF of 50 to 55% on echocardiogram done in December 2019). Left bundle branch block Osteoarthritis Pseudomyxoma peritonei Shoulder fracture, left Surgically constructed arteriovenous fistula Type 2 diabetes mellitus Surgical History Surgical History History of aortic valve replacement with porcine valve History of bilateral cataract extraction History of exploratory laparotomy (~09/2016) Exploratory laparotomy with drainage of pelvic and right subphrenic abscesses with cultures growing Klebsiella pneumonia and Bacteroides fragilis. Suspected to be caused from perforated bowel. History of three vessel coronary artery bypass (~2013) GONZALEZ to LAD, saphenous vein to diagonal, saphenous vein to right posterior descending artery. Done at [facility]. Hx of heart surgery Status post creation of arteriovenous fistula Right upper extremity. Family History Family History (Reviewed 10/08/21 @ 20:01 by Javid
--- NOTE | 2021-10-09 02:34 | ECG_ITS ---
Measurements Intervals Walker Rate: 135 P: 31 CA: 191 QRS: -84 QRSD: 182 T: 90 QT: 361 QTc: 542 Interpretive Statements ATRIAL FLUTTER/TACHYCARDIA WITH RAPID VENTRICULAR RESPONSE LEFT AXIS DEVIATION LEFT BUNDLE BRANCH BLOCK BASELINE WANDER- I ABNORMAL ECG Electronically Signed On 10-09-2021 8:55:10 SIEVE GRADER TENDER by Simon Malave D.O.
--- NOTE | 2021-10-09 02:48 | PC.NURSE ---
Spoke with Dr. Plaza regarding increased heart rate. EKG relayed. Start Amio bolus along with protocol. Get morning labs now including electrolytes.
[2021-10-09] MEDS: AMIODARONE 150 MG/D5W 100 ML 150 MG/100 ML BAG 600 MG IV CONT (03:06)
[2021-10-09] MEDS: AMIODARONE 360 MG/D5W 200 ML 360 MG/200 ML BAG 33.33 MG IV CONT (03:07)
[2021-10-09 03:13] LABS: Basophils Absolute Auto 0.2 K/mm3 (0.0-0.1); Basophils Percent Auto 0.5 % (0.2-1.2); Eosinophils Absolute Auto 0.1 K/mm3 (0-0.3); Eosinophils Percent Auto 0.2 % (0-4.4); Hematocrit 43.9 % (37.0-47.0); Hemoglobin 13.2 g/dL (12.0-15.0); Immature Granulocyte Absolute 0.41 K/mm3 (0.00-0.031); Immature Granulocyte Percent A 1.2 % (0-0.5); Lymphocytes Absolute Auto 0.21 K/mm3 (0.9-3.2); Lymphocytes Percent Auto 0.6 % (18.3-44.2); Mean Corpuscular HGB Conc 30.1 g/dl (32-36); Mean Corpuscular Hemoglobin 30.4 pg (26-34); Mean Corpuscular Volume 101.2 fl (80-100); Mean Platelet Volume 11.3 fl (7.4-10.4); Monocytes Absolute Auto 0.7 K/mm3 (0.1-0.6); Neutrophils Absolute Auto 31.4 K/mm3 (1.3-6.7); Neutrophils Percent Auto 95.5 % (45.5-73.1); Nucleated Red Blood Cells Absolute Auto 0.1 K/mm3 (0.0-0.012); Nucleated Red Blood Cells Perc 0.4 % (0.0-0.2); Platelet Count Result 166 k/mm3 (150-375); Red Blood Count 4.34 M/mm3 (4.2-5.4); Red Cell Distribution Width 18.2 % (11.5-14.5)
[2021-10-09 03:21] LABS: Alanine Aminotransferase 41 U/L (4-35); Albumin Level 3.6 g/dL (3.5-5.1); Alkaline Phosphatase 364 U/L (38-126); Anion Gap 23 mmol/L (8-16); Aspartate Amino Transferase 57 U/L (14-36); Bilirubin,Total 1.5 mg/dL (0.2-1.3); Blood Urea Nitrogen 49 mg/dL (7-17); Calcium 9.1 mg/dL (8.4-10.2); Carbon Dioxide 14 mmol/L (22-30); Chloride 97 mmol/L (98-107); Estimated CRCL calculation 7 ml/min; Estimated Glomerular Filt Rate 7; Glucose 453 mg/dL (65-110); Magnesium 1.9 mg/dL (1.6-2.3); Sodium 134 mmol/L (137-145)
[2021-10-09 03:46] LABS: Troponin I 0.167 ng/mL (0.000-0.034)
--- NOTE | 2021-10-09 03:48 | PC.NURSE ---
Spoke with Dr. Plaza regarding chemistry panel and vital signs. Start Insulin drip per protocol but no IVF. Start Neosynephrine if needed for BP.
[2021-10-09] MEDS: INSULIN HUMAN REGULAR (*BKC) 100 UNITS in SODIUM CHLORIDE 0.9% IV 99 ML 7.8 UNITS IV CONT (04:39)
[2021-10-09] MEDS: ALBUMIN HUMAN 25% 25 GM/100 ML 100 ML IVPB ×3 (05:07→18:17)
[2021-10-09 05:51] LABS: Glucose Point of Care 413 mg/dl (65-105)
[2021-10-09 06:43] LABS: Glucose Point of Care 412 mg/dl (65-105)
--- NOTE | 2021-10-09 07:56 | PCRTNOTE ---
ON CONT. BIPAP, PT. UNABLE TO DO MDI AT THIS TIME.
[2021-10-09] MEDS: SODIUM BICARBONATE 8.4% 50 MEQ/50 ML SYRINGE 100 MEQ IV PUSH (07:58)
[2021-10-09] MEDS: AMIODARONE 360 MG/D5W 200 ML 360 MG/200 ML BAG 16.67 MG IV CONT ×2 (08:55→21:32)
[2021-10-09] MEDS: SODIUM BICARBONATE 8.4% 150 MEQ in WATER, STERILE FOR INJECTION 950 ML 50 MEQ IV CONT (08:56)
--- NOTE | 2021-10-09 09:01 | WPDCNINT ---
Assessment and Plan Assessment and plan (1) Septic shock: Code(s): A41.9 - Sepsis, unspecified organism; R65.21 - Severe sepsis with septic shock Status: Acute Assessment and Plan: Patient presented with lethargy, altered mental status, leukocytosis, hypotension -patient given IV fluids cautiously due to end-stage renal disease on dialysis -central line was inserted in the ER this patient started on pressors -currently Levophed, vasopressin, Enrrique-Synephrine -will maintain mean arterial pressures > 65 mmHg -blood and urine cultures have been obtained -continue Zosyn and vancomycin (2) Acute respiratory failure: Qualifiers: Respiratory failure complication: unspecified whether with hypoxia or hypercapnia Qualified Code(s): J96.00 - Acute respiratory failure, unspecified whether with hypoxia or hypercapnia Code(s): J96.00 - Acute respiratory failure, unspecified whether with hypoxia or hypercapnia Status: Acute Assessment and Plan: Acute respiratory failure likely related to volume overload -continue BiPAP, increased IPAP to 12, EPAP of 5. -30% FiO2, O2 sats have been adequate, will continue to monitor -discussed with patient that if her respiratory status worsens in if she requires intubation and mechanical ventilation she was agreeable. (3) ESRD (end stage renal disease) on dialysis: Code(s): N18.6 - End stage renal disease; Z99.2 - Dependence on renal dialysis Status: Acute Assessment and Plan: End-stage renal disease on dialysis -nephrology has been consulted -patient with metabolic acidosis likely related to septic shock -will give sodium bicarb IV push and started on bicarb infusion 50 mL/hour (4) Decubitus ulcer: Code(s): L89.90 - Pressure ulcer of unspecified site, unspecified stage Status: Acute Assessment and Plan: Wound Care has been consulted -surgery also been consulted for multiple wounds (5) DKA (diabetic ketoacidoses): Code(s): E11.10 - Type 2 diabetes mellitus with ketoacidosis without coma Status: Acute Assessment and Plan: Patient has a history of diabetes, blood sugars were in the 300s to 400s with anion gap metabolic acidosis -patient was started on insulin infusion (6) Elevated LFTs: Code(s): R79.89 - Other specified abnormal findings of blood chemistry Status: Acute Assessment and Plan: Elevated LFTs likely related to septic shock -will obtain hepatitis panel and right upper quadrant ultrasound Additional Plan Discussed with patient and updated with her condition and plan of care. She is agreeable to intubation and mechanical ventilation if she requires it. Code status: Full code Critical care time spent: 46 minutes This dictation may have been done utilizing a voice recognition system. Attempts have been made to correct errors. However, there may be uncorrected grammatical, spelling, and recognition errors present. Due to a high probability of clinically significant, life threatening deterioration, the patient required my highest level of preparedness to intervene emergently and I personally spent this critical care time directly and personally managing the patient. This critical care time included obtaining a history; examining the patient; pulse oximetry; ordering and review of studies; arranging urgent treatment with development of a management plan; evaluation of patient's response to treatment; frequent reassessment; and discussions with other providers. It was exclusive of separately billable procedures and treating other patients and teaching time. Please see Assessment and Plan section and the rest of the note for further information on patient assessment and treatment Military Nurse Consult Note Consult date: 10/09/21 Time Seen: 06:55 Reason for consult: Septic shock, leukocytosis, altered mental status, metabolic acidosis, elevated LFTs, end-stage renal disease HPI: Martha Reid
[2021-10-09] MEDS: HYDROCORTISONE SODIUM SUCCINATE 100 MG/2 ML VIAL IV PUSH ×3 (10:00→21:10)
--- NOTE | 2021-10-09 10:25 | PM.CNGS ---
Assessment and Plan Assessment and plan (1) Decubitus ulcer: Code(s): L89.90 - Pressure ulcer of unspecified site, unspecified stage Status: Acute Assessment and Plan: Unstageable left ischial decubitus ulcer has a large area of eschar but the wound bed is firm and there is no obvious purulent drainage or crepitus. Unstageable sacral decubitus ulcer with a small area of necrotic tissue without purulent drainage. The ischial and sacral decubitus ulcers could be another possible source of her sepsis, but not likely to be the only or primary source. She is currently on three vasopressors in the ICU and on BiPAP for her acute respiratory failure. The patient is not stable enough at this time to proceed with surgical debridement in the OR, but we could consider bedside debridement possibly with local anesthetic if necessary to further evaluate these wounds. I spoke with the Animal Care Technician regarding her plan of care. We will continue with medical management at this time. Continue broad-spectrum IV antibiotics, cautious IV fluid resuscitation, and local wound care. We will initiate Dakin's soaked gauze dressing changes to the ischial and sacral decubitus ulcers. Will continue to follow her closely and decipher further surgical plans depending on how she progresses. (2) Wound of lower extremity: Code(s): S81.809A - Unspecified open wound, unspecified lower leg, initial encounter Status: Acute Assessment and Plan: Bilateral lower extremities with foul odor and some areas of yellow necrotic slough, but mostly appear to be superficial wounds. Would continue with local wound care for now and monitor. Patient likely also has an element of peripheral vascular disease that is playing a role in poor healing, which could be evaluated if the patient becomes more medically stable. This is not an acute issue. (3) Septic shock: Code(s): A41.9 - Sepsis, unspecified organism; R65.21 - Severe sepsis with septic shock Status: Acute Assessment and Plan: Urinary vs multifactorial vs wounds? WBC 33,000. Lactic acid up to 4.8. Blood cultures pending. Currently on vasopressor support, wean per CCP once improving. Continue broad-spectrum IV antibiotics. Management per Hospitalist. (4) Altered mental status: Qualifiers: Altered mental status type: somnolence Qualified Code(s): R40.0 - Somnolence Code(s): R41.82 - Altered mental status, unspecified Status: Acute (5) ESRD (end stage renal disease) on dialysis: Code(s): N18.6 - End stage renal disease; Z99.2 - Dependence on renal dialysis Status: Acute (6) Elevated LFTs: Code(s): R79.89 - Other specified abnormal findings of blood chemistry Status: Acute (7) Acute respiratory failure with hypoxia: Code(s): J96.01 - Acute respiratory failure with hypoxia Status: Acute (8) DKA (diabetic ketoacidoses): Code(s): E11.10 - Type 2 diabetes mellitus with ketoacidosis without coma Status: Acute Assessment and Plan: Currently on Insulin infusion. Management per [facility]. (9) Type 2 diabetes mellitus with diabetic polyneuropathy: Qualifiers: Diabetes mellitus senior care insulin use: without supervisor intermediates use Qualified Code(s): E11.42 - Type 2 diabetes mellitus with diabetic polyneuropathy Code(s): E11.42 - Type 2 diabetes mellitus with diabetic polyneuropathy Status: Acute (10) UTI (urinary tract infection): Code(s): N39.0 - Urinary tract infection, site not specified Status: Acute Assessment and Plan: Urine culture pending. Continue broad-spectrum IV abx. (11) Ischemic cardiomyopathy: Code(s): I25.5 - Ischemic cardiomyopathy Status: Acute Additional Plan I have discussed the patient's case and plan of care with Dr. Ward. Thank you for allowing us to see the patient in consultation and we will continue to follow along with you. History of Present I
[2021-10-09] MEDS: HEPARIN SODIUM 5,000 UNITS/ML VIAL 5000 UNITS SUB-Q ×2 (10:41→21:07)
[2021-10-09] MEDS: PANTOPRAZOLE SODIUM IV 40 MG VIAL IV PUSH (10:41)
[2021-10-09] MEDS: TOLNAFTATE 1% POWDER 45 GM BTL 1 APPLIC TOPICAL ×2 (10:41→21:09)
[2021-10-09] MEDS: MICONAZOLE NITRATE 2% CREAM 30 GM TUBE 1 APPLIC TOPICAL ×2 (10:41→21:07)
[2021-10-09 10:47] LABS: Glucose Point of Care 249 mg/dl (65-105)
[2021-10-09 10:47] LABS: Glucose Point of Care 369 mg/dl (65-105)
[2021-10-09 10:47] LABS: Glucose Point of Care 206 mg/dl (65-105)
[2021-10-09 10:47] LABS: Glucose Point of Care 304 mg/dl (65-105)
[2021-10-09 10:48] LABS: Lactic Acid Reflex 4.8 mmol/L (0.7-2.1)
[2021-10-09 11:46] LABS: Anion Gap 22 mmol/L (8-16); Blood Urea Nitrogen 55 mg/dL (7-17); Calcium 8.8 mg/dL (8.4-10.2); Carbon Dioxide 23 mmol/L (22-30); Chloride 95 mmol/L (98-107); Estimated CRCL calculation 8 ml/min; Estimated Glomerular Filt Rate 7; Glucose 370 mg/dL (65-110); Potassium 2.8 mmol/L (3.4-5.0); Sodium 140 mmol/L (137-145)
[2021-10-09] MEDS: INSULIN HUMAN REGULAR (*BKC) 100 UNITS in SODIUM CHLORIDE 0.9% IV 99 ML 8.5 UNITS IV CONT (12:08)
[2021-10-09 12:25] LABS: Alveolar/Arterial O2 Gradient 121.9 mmHg; Base Excess ABG -7.3 mEq/l (+/-2.0); Fractional Inspired Oxygen 35 %; HCO3 ABG 16.8 mEq/l (22.0-26.0); Oxygen Content ABG 16.4 %vol (16.0-22.0); Oxyhemoglobin 94.3 % THb (90.0-100.0); PCO2 ABG 30.1 mmHg (35.0-45.0); PO2 ABG 92.7 mmHg (80.0-100.0); PO2 FiO2 Ratio Arterial Blood 2.65 %; Total Hemoglobin 12.3 g/dL (12.0-18.0); pH ABG 7.365 (7.350-7.450)
[2021-10-09 12:26] LABS: Device BIPAP; Site Drawn ARTLINE
[2021-10-09 12:27] LABS: Expiratory Pressure 5 cmH2O; Inspiratory Pressure 12 cmH2O
[2021-10-09 12:40] LABS: Anion Gap 21 mmol/L (8-16); Blood Urea Nitrogen 56 mg/dL (7-17); Carbon Dioxide 21 mmol/L (22-30); Chloride 95 mmol/L (98-107); Estimated CRCL calculation 8 ml/min; Estimated Glomerular Filt Rate 7; Glucose 166 mg/dL (65-110); Potassium 3.1 mmol/L (3.4-5.0); Sodium 137 mmol/L (137-145)
--- NOTE | 2021-10-09 13:09 | PM.CNNEP ---
Assessment and Plan Assessment and plan (1) End stage renal disease: Code(s): N18.6 - End stage renal disease Status: Chronic Assessment and Plan: due for HD today but unlikely to tolerate given hemodynamic instability follow electrolytes, volume status, and clearance reassess status tomorrow (2) Septic shock: Code(s): A41.9 - Sepsis, unspecified organism; R65.21 - Severe sepsis with septic shock Status: Acute Assessment and Plan: due to UTI versus decubitus ulcer versus wounds pressor support to maintain MAP follow culture data on IV antibiotics (3) Altered mental status: Code(s): R41.82 - Altered mental status, unspecified Status: Acute Assessment and Plan: due to sepsis and acute illness along with hemodynamic instability follow mentation (4) Acute respiratory failure with hypoxia: Code(s): J96.01 - Acute respiratory failure with hypoxia Status: Acute Assessment and Plan: due to encephalopathy along with fluid overload continue BiPAP therapy remains at risk for the need for ventilator support (5) Decubitus ulcer: Code(s): L89.90 - Pressure ulcer of unspecified site, unspecified stage Status: Acute Assessment and Plan: noted on admission Surgery consulted for further evaluation local wound care (6) Diabetes: Code(s): E11.9 - Type 2 diabetes mellitus without complications Status: Acute Assessment and Plan: follow accuchecks glycemic control Greater than 20 min was spent in review of the electronic records as well as discussion with the nurses and physicians involved in her care. Discussed case with Dr. Maricruz kruse as well and will reassess the need for dialysis tomorrow as she is unlikely to tolerate any intervention at this time given her hemodynamic instability with the use of multiple vasopressor agents. Will continue to follow. History of Present Illness Reason for Consult Consult date: 10/09/21 Reason for consult: end stage renal disease Chief Complaint Chief complaint: Septic shock History of Present Illness Narrative: Most of the information I have obtained is from review of the electronic medical record as well as discussion with the medical staff involved in the patient's care as is difficult to get a full history from the patient as she is on continuous BiPAP therapy at the time of my visit. The patient is a 71-year-old female with a past medical history as outlined below who presented to [facility] Emergency room from home due to altered mental status. Apparently, the patient has not been feeling very well for last 7-10 days in general. She saw her primary care physician recently who put her on oral antibiotics for the presumption of bronchitis. However, in the following days her family noted that her mental status seemed to continue to fluctuate mostly point of extreme lethargy. Eventually, they felt that her overall condition was deteriorating so EMS was called for further evaluation. By the time the patient's arrival to the emergency room, the patient's mental status had not really significantly improved and she was noted be quite hypotensive with systolic BP in the 50s to 70s. Given her known history of end-stage renal disease, she was given a 500 cc bolus but this failed to improve her blood pressure so the patient had a central line placed and was started on Levophed to optimize her blood pressure. Routine blood test [place] [address], potassium of 2.7 and a lactic acid of 2.9 her chest x-ray showed evidence of CHF/pulmonary edema. Given the concerns for overt sepsis, appropriate cultures were obtained and she was started on broad-spectrum IV antibiotic therapy with subsequent admission to the intensive care unit. As a respiratory status continue fluctuate due to her mentation she was placed on BiPAP therapy.
[2021-10-09 13:25] LABS: Reflex Lactic Acid Yes or No Add Lactic
[2021-10-09] MEDS: KCL 20 MEQ/SW 100 ML 100 ML 50 MEQ IVPB (14:11)
[2021-10-09] MEDS: SOD HYPOCHLORITE 1/4 STRENGTH 473 ML 1 APPLIC TOPICAL ×2 (14:13→21:09)
[2021-10-09] MEDS: SILVERGEL (ELTA) 45 ML 1 APPLIC TOPICAL (14:13)
[2021-10-09 14:45] LABS: Lactic Acid 4.2 mmol/L (0.7-2.1)
[2021-10-09 15:11] LABS: Glucose Point of Care 78 mg/dl (65-105)
[2021-10-09 15:11] LABS: Glucose Point of Care 78 mg/dl (65-105)
[2021-10-09 15:11] LABS: Glucose Point of Care 108 mg/dl (65-105)
[2021-10-09 15:11] LABS: Glucose Point of Care 163 mg/dl (65-105)
--- NOTE | 2021-10-09 16:05 | P.PCNBED_ITS ---
Procedures Arterial Line Arterial Line Date: 10/09/21 Arterial Line Time: 15:41 Discussed with the patient/family/POA, the placement of an arterial catheter, including its clinical necessity/indication and associated potential risks, benefits and alternatives.: Yes Patient/family/POA and/or understands and acknowledges the need to proceed with the arterial catheter insertion as an important element of the patient's clinical management.: Yes Time Out Performed: Yes Patient Position: supine Centrifugal Extractor Operator Prep: sterile gown, sterile gloves, mask and hat Site: right and femoral Site Prep: chlorhexidine and sterile drape Skin Anesthesia: 1% lidocaine Technique used: ultrasound-guided Size (Gauge): 20 Length: 12 cm Closure/Dressing: suture, transparent dressing, hemostatic product and antimicrobial product Patient tolerated procedure: well Complications: none
[2021-10-09 16:24] LABS: Glucose Point of Care 93 mg/dl (65-105)
[2021-10-09 16:38] LABS: Anion Gap 21 mmol/L (8-16); Blood Urea Nitrogen 57 mg/dL (7-17); Calcium 8.6 mg/dL (8.4-10.2); Carbon Dioxide 19 mmol/L (22-30); Chloride 94 mmol/L (98-107); Estimated CRCL calculation 8 ml/min; Estimated Glomerular Filt Rate 7; Glucose 136 mg/dL (65-110); Potassium 4.1 mmol/L (3.4-5.0); Sodium 134 mmol/L (137-145)
[2021-10-09 18:32] LABS: Glucose Point of Care 161 mg/dl (65-105)
[2021-10-09 19:02] LABS: Vancomycin Random 15.2 ug/mL (10-20)
[2021-10-09 20:40] LABS: Glucose Point of Care 134 mg/dl (65-105)
[2021-10-09 20:52] LABS: Anion Gap 27 mmol/L (8-16); Blood Urea Nitrogen 58 mg/dL (7-17); Calcium 8.7 mg/dL (8.4-10.2); Carbon Dioxide 15 mmol/L (22-30); Chloride 91 mmol/L (98-107); Estimated CRCL calculation 7 ml/min; Estimated Glomerular Filt Rate 7; Glucose 221 mg/dL (65-110); Potassium 4.4 mmol/L (3.4-5.0); Sodium 133 mmol/L (137-145)
[2021-10-09] MEDS: INSULIN ASPART (*BKC) 100 UNITS/ML SUB-Q (22:30)
[2021-10-10] VITALS (18 sets, daily range): BP systolic 96–110; BP diastolic 49–62; PULSE 66–103; RESP 20–45; TEMP 36.6–37.3; O2SAT 94–98
[2021-10-10] MEDS: INSULIN ASPART (*BKC) 100 UNITS/ML SUB-Q ×4 (00:07→05:49)
[2021-10-10] MEDS: ALBUMIN HUMAN 25% 25 GM/100 ML 100 ML IVPB ×2 (00:07→05:44)
[2021-10-10 00:35] LABS: Glucose Point of Care 210 mg/dl (65-105)
[2021-10-10 00:47] LABS: Anion Gap 30 mmol/L (8-16); Blood Urea Nitrogen 59 mg/dL (7-17); Calcium 8.6 mg/dL (8.4-10.2); Carbon Dioxide 14 mmol/L (22-30); Chloride 90 mmol/L (98-107); Estimated CRCL calculation 7 ml/min; Estimated Glomerular Filt Rate 6; Glucose 270 mg/dL (65-110); Sodium 134 mmol/L (137-145)
[2021-10-10 02:02] LABS: Glucose Point of Care 234 mg/dl (65-105)
[2021-10-10 04:15] LABS: Glucose Point of Care 252 mg/dl (65-105)
[2021-10-10 04:27] LABS: Hematocrit 37.2 % (37.0-47.0); Immature Platelet Fraction Pct 11.5 % (0.9-11.2); Mean Corpuscular HGB Conc 32.3 g/dl (32-36); Mean Corpuscular Volume 96.1 fl (80-100); Mean Platelet Volume 12.9 fl (7.4-10.4); Platelet Count Result 100 k/mm3 (150-375); Red Blood Count 3.87 M/mm3 (4.2-5.4); Red Cell Distribution Width 17.5 % (11.5-14.5); White Blood Count 33.2 K/mm3 (4.5-10.0)
[2021-10-10 04:49] LABS: Alanine Aminotransferase 166 U/L (4-35); Alkaline Phosphatase 348 U/L (38-126); Anion Gap 29 mmol/L (8-16); Aspartate Amino Transferase 602 U/L (14-36); Bilirubin,Total 1.6 mg/dL (0.2-1.3); Blood Urea Nitrogen 61 mg/dL (7-17); CRP 7.8 mg/dL (<1.0); Calcium 8.4 mg/dL (8.4-10.2); Carbon Dioxide 12 mmol/L (22-30); Chloride 89 mmol/L (98-107); Glucose 282 mg/dL (65-110); Magnesium 1.7 mg/dL (1.6-2.3); Phosphorus 6.6 mg/dL (2.5-4.5); Potassium 4.3 mmol/L (3.4-5.0); Sodium 130 mmol/L (137-145)
[2021-10-10 04:51] LABS: Lactic Acid Reflex 9.3 mmol/L (0.7-2.1)
[2021-10-10 04:54] LABS: Estimated CRCL calculation 8 ml/min; Estimated Glomerular Filt Rate 7
[2021-10-10] MEDS: SODIUM CHLORIDE 0.9% IV 500 ML IV CONT (05:44)
[2021-10-10] MEDS: HYDROCORTISONE SODIUM SUCCINATE 100 MG/2 ML VIAL IV PUSH (05:45)
[2021-10-10] MEDS: CENTRAL LINE FLUSH 10 ML IV PUSH (05:50)
[2021-10-10 05:51] LABS: Glucose Point of Care 204 mg/dl (65-105)
[2021-10-10 07:23] LABS: Reflex Lactic Acid Yes or No Add Lactic
--- NOTE | 2021-10-10 07:36 | PCNSR ---
On 10/10/21, the student, Danae Mclaughlin, provided care and completed [facility] documentation on this patient. I have reviewed the student's documentation and agree with the findings.
--- NOTE | 2021-10-10 07:57 | PCRCNOTE ---
Patient on Bipap unable to do.
[2021-10-10 08:05] LABS: Lactic Acid 8.4 mmol/L (0.7-2.1)
[2021-10-10] MEDS: ONDANSETRON INJ 4 MG/2 ML VIAL IV PUSH (08:19)
[2021-10-10 08:25] LABS: Glucose Point of Care 163 mg/dl (65-105)
[2021-10-10] MEDS: AMIODARONE 360 MG/D5W 200 ML 360 MG/200 ML BAG 16.67 MG IV CONT (08:25)
[2021-10-10] MEDS: PANTOPRAZOLE SODIUM IV 40 MG VIAL IV PUSH (08:28)
[2021-10-10] MEDS: HEPARIN SODIUM 5,000 UNITS/ML VIAL 5000 UNITS SUB-Q (08:28)
[2021-10-10] MEDS: SILVERGEL (ELTA) 45 ML 1 APPLIC TOPICAL (08:29)
[2021-10-10] MEDS: TOLNAFTATE 1% POWDER 45 GM BTL 1 APPLIC TOPICAL (08:29)
[2021-10-10] MEDS: MICONAZOLE NITRATE 2% CREAM 30 GM TUBE 1 APPLIC TOPICAL (08:30)
--- NOTE | 2021-10-10 08:38 | WPDINTPN ---
Progress Note: A&P Assessment and Plan (1) Septic shock: Code(s): A41.9 - Sepsis, unspecified organism; R65.21 - Severe sepsis with septic shock Status: Acute Assessment and Plan: Patient presented with lethargy, altered mental status, leukocytosis, hypotension -patient given IV fluids cautiously due to end-stage renal disease on dialysis -central line was inserted in the ER this patient started on pressors -currently Levophed 30 mcg/min, vasopressin 0.04 units/min, Enrrique-Synephrine 140 mcg/min -will maintain mean arterial pressures > 65 mmHg -lactic acid level is trending up - 9.3 (from 4.2 yesterday) -LFTs trending up likely secondary to shock liver -10/08/2021: Blood cultures negative x2 -10/08/2021 urine culture pending -continue Zosyn and vancomycin (2) Acute respiratory failure: Qualifiers: Respiratory failure complication: unspecified whether with hypoxia or hypercapnia Qualified Code(s): J96.00 - Acute respiratory failure, unspecified whether with hypoxia or hypercapnia Code(s): J96.00 - Acute respiratory failure, unspecified whether with hypoxia or hypercapnia Status: Acute Assessment and Plan: Acute respiratory failure likely related to septic shock, ESRD, volume overload -patient was on BiPAP 11/02, 35% FiO2, had an episode of emesis this morning, BiPAP was removed and patient currently on 100% non-rebreather -10/10/2021 chest x-ray shows small pleural effusion with worsening on the left, cardiomegaly (3) ESRD (end stage renal disease) on dialysis: Code(s): N18.6 - End stage renal disease; Z99.2 - Dependence on renal dialysis Status: Acute Assessment and Plan: End-stage renal disease on dialysis -appreciate nephrology following the patient -patient with severe metabolic acidosis due to lactic acidosis, uremia and septic shock -patient currently on bicarb infusion at 50 mL/hour (4) Decubitus ulcer: Code(s): L89.90 - Pressure ulcer of unspecified site, unspecified stage Status: Acute Assessment and Plan: Appreciate wound care evaluation -appreciate surgery evaluation and recommendations (5) DKA (diabetic ketoacidoses): Code(s): E11.10 - Type 2 diabetes mellitus with ketoacidosis without coma Status: Acute Assessment and Plan: Patient has a history of diabetes, blood sugars were in the 300s to 400s with anion gap metabolic acidosis -patient is currently off insulin infusion (6) Elevated LFTs: Code(s): R79.89 - Other specified abnormal findings of blood chemistry Status: Acute Assessment and Plan: Elevated LFTs likely related to septic shock Additional Plan 10/10/2021: Discussed with patient's this morning, updated with patient's condition and plan of care. I did explain to him the patient is in septic shock, multiorgan failure, lactic acidosis, also showed him the wounds on her legs and elbow, he is aware of the other wounds on the buttocks. The son is the POA but the stated that he spoke to the son this morning and both of them have decided to make her comfortable as her quality of life prior to coming to the hospital was significantly poor as she was not doing anything on her own. She also does not want to go to a long term. I discussed with him regarding do not resuscitate status to which he is agreeable. The is also going to talk to the son to see if he wants to come and see his mother before they withdraw support. Code status: DNR Critical care time spent: 39 minutes This dictation may have been done utilizing a voice recognition system. Attempts have been made to correct errors. However, there may be uncorrected grammatical, spelling, and recognition errors present. Due to a high probability of clinically significant, life threatening deterioration, the patient required my highest level of preparedness to intervene emergently and I personally spent this critical c
--- NOTE | 2021-10-10 10:53 | PCDIET ---
ICU rounding note: Diet order: NPO. Plans for comfort care. No further nutritional interventions.
[2021-10-10] MEDS: LORazepam INJ (*CRX) 2 MG/ML VIAL IV PUSH (11:20)
[2021-10-10] MEDS: MORPHINE SULFATE INJ (*CRX) 10 MG/ML AMP 5 MG IV PUSH (11:20)
--- NOTE | 2021-10-10 14:22 | PM.DDS ---
Discharge Summary Date and Time Date of : 10/10/21 Time of : 11:29 Provider Pronounced By: Cyn Richards RN Shannen Galdamez RN Probable Cause of Probable Cause of : Acute respiratory failure Summary Hospital Course: Please refer to admission H& P. Briefly,Martha Reid is a 71 year old female with past medical history of aortic valve replacement with porcine valve, end-stage renal disease on hemodialysis, CVA, anemia, COPD, CHF, CAD status post CABG in 2013, essential hypertension, ischemic cardiomyopathy, osteoarthritis, diabetes type 2 presented the ED from home with altered mental status. I obtained history from the medical records patient had going to see her PCP as she has been not feeling well for the past 1 week with occasional nonproductive cough. Patient went home on oral antibiotics per PCP. After returning home she was having fluctuation of consciousness and extreme lethargy. EMS was: Patient was brought of the POA admission was found to be hypotensive with systolic blood pressures in the 50s to 70s. Given that she has history of end-stage renal disease on dialysis he was given 500 mL IV fluid bolus and started on Levophed after a central line was inserted. WBC count was 25,000, potassium of 2.7 and 5.8, lactate of 2.9. Chest x-ray shows congestive changes. Patient was started on Zosyn and vancomycin and transferred to the ICU for further management Patient seen and examined this morning, is on BiPAP 10/5, 30% FiO2. Patient is on Levophed 30 mcg/min, vasopressin 0.04 units/minute, Enrrique-Synephrine. Patient has adequate urine output which is likely and milky ivan in color. Patient is awake, alert, nods to questions and follows simple commands. Denies any pain, nods yes to shortness of breath/difficulty breathing, denies any nausea, vomiting or abdominal pain at this time Unstageable left ischial decubitus ulcer has a large area of eschar but the wound bed is firm and there is no obvious purulent drainage or crepitus. Unstageable sacral decubitus ulcer with a small area of necrotic tissue without purulent drainage. The ischial and sacral decubitus ulcers could be another possible source of her sepsis, but not likely to be the only or primary source. She is currently on three vasopressors in the ICU and on BiPAP for her acute respiratory failure. The patient is not stable enough at this time to proceed with surgical debridement in the OR, but we could consider bedside debridement possibly with local anesthetic if necessary to further evaluate these wounds. I spoke with the Quality Control Systems Manager regarding her plan of care. We will continue with medical management at this time. Continue broad-spectrum IV antibiotics, cautious IV fluid resuscitation, and local wound care. We will initiate Dakin's soaked gauze dressing changes to the ischial and sacral decubitus ulcers. Will continue to follow her closely and decipher further surgical plans depending on how she progresses. She has been started on IV Zosyn and Vancomycin. The patient has also been found to have multiple wounds, with the larger wounds being on her bilateral lower extremities and buttocks. Our service has been consulted for surgical evaluation of her wounds in the setting of septic shock. She is now seen in the ICU. She does nod yes to having pain in her legs and buttocks. ROS limited due to her altered mental status. iscussed with patient's this morning, updated with patient's condition and plan of care. I did explain to him the patient is in septic shock, multiorgan failure, lactic acidosis, also showed him the wounds on her legs and elbow, he is aware of the other wounds on the buttocks. The son is the POA but the stated that he spoke to the son this morning and both of them have decided to make her comfortable as her quality of life prior to coming to the hospital was significantly poor as she was not doing anything on her own. She also does not want to go to a nursing
== END 2021-10-10 11:29 | disposition expired | DRG 871 ==
LOC: ANHED 18:44 → ANHICU 10-09 09:27
PROVIDERS: Internal Medicine; Admitting Provider Internal Medicine; Emergency Provider Family Medicine; PCP Internal Medicine; Visit Provider Internal Medicine
DX: A41.9 Sepsis, unspecified organism (principal); E11.10 Type 2 diabetes mellitus with ketoacidosis without coma; R65.21 Severe sepsis with septic shock; N18.6 End stage renal disease; J96.01 Acute respiratory failure with hypoxia; I13.2 Hypertensive heart and chronic kidney disease with heart failure and with stage 5 chronic kidney disease, or end stage renal disease; L89.890 Pressure ulcer of other site, unstageable; L89.150 Pressure ulcer of sacral region, unstageable; S81.802A Unspecified open wound, left lower leg, initial encounter; S81.801A Unspecified open wound, right lower leg, initial encounter; R40.0 Somnolence; I25.10 Atherosclerotic heart disease of native coronary artery without angina pectoris; I50.9 Heart failure, unspecified; E11.22 Type 2 diabetes mellitus with diabetic chronic kidney disease; E11.42 Type 2 diabetes mellitus with diabetic polyneuropathy; I35.0 Nonrheumatic aortic (valve) stenosis; I44.7 Left bundle-branch block, unspecified; I25.5 Ischemic cardiomyopathy; K21.9 Gastro-esophageal reflux disease without esophagitis; J44.9 Chronic obstructive pulmonary disease, unspecified; R79.89 Other specified abnormal findings of blood chemistry; Z66 Do not resuscitate; Z99.2 Dependence on renal dialysis; Z79.82 Long term (current) use of aspirin; Z79.899 Other long term (current) drug therapy; Z86.73 Personal history of transient ischemic attack (TIA), and cerebral infarction without residual deficits; Z95.1 Presence of aortocoronary bypass graft; Z95.4 Presence of other heart-valve replacement; Z98.42 Cataract extraction status, left eye; Z98.41 Cataract extraction status, right eye
CPT/HCPCS: 36415; 36556; 36600; 51702; 71045; 80048; 80053; 80202; 81001; 82805; 82948; 83605; 83735; 83880; 84100; 84484; 85025; 85027; 85055; 85610; 86140; 87040; 87077; 87086; 87186; 93005; 94002; 94660; 96361; 96365; 96367; 99285; A9270; C1751; C9113; J0131; J0282; J1644; J1720; J1815; J2060; J2270; J2370; J2405; J2543; J3370; J3480; J7030; J7040; J7060; P9047